=== PATIENT | female | born 1960 | race Caucasian/White ===

== ENCOUNTER → 2017-09-23 13:18 | Outpatient (CLI) | payer MEDICARE, SELFPAY ==
[2017-09-23 15:56] LABS: T4 Free Direct 0.92 ng/dL (0.76-1.46); Thyroid Stim Hormone (TSH) 2.61 uIU/mL (0.358-3.74)
== END ==
PROVIDERS: Family Provider Family Medicine; PCP Family Medicine; Visit Provider Nurse Practitioner Family
DX: R00.2 Palpitations (principal); I47.1 Supraventricular tachycardia; Z98.890 Other specified postprocedural states
CPT/HCPCS: 36415; 84439; 84443; 93225; 93226

== ENCOUNTER 2017-10-14 07:34 | Observation (INO) | payer MEDICARE, SELFPAY ==
[2017-09-24 15:57] LABS: Hematocrit 42.7 % (37-47); Hemoglobin 13.6 g/dl (12.0-15.0); Mean Corp Hgb Conc 31.9 g/gl (32-36); Mean Corpuscular Hgb 28.1 pg (27.0-32.0); Mean Corpuscular Volume 88.2 fL (81-99); Mean Platelet Vol. 9.4 fl (6.2-12.0); Platelet Count 272 K/mm3 (150-450); RBC Distribution Width CV 15.3 % (11.6-14.6); RBC Distribution Width SD 49.3 fl (35.1-43.9); Red Blood Count 4.84 M/mm3 (4.2-5.4); White Blood Count 8.9 K/mm3 (4.4-11.0)
[2017-09-24 15:59] LABS: Scan Indicated on CBC? Y/N NO
[2017-09-24 16:14] LABS: International Normalized Ratio 1.1; Prothrombin Time (Protime)PT. 14.1 SECONDS (11.7-14.9)
[2017-09-24 16:15] LABS: Partial Thromboplast Time 29.2 Seconds (24.1-36.2)
[2017-09-24 16:19] LABS: ALB/GLOB Ratio 0.9 RATIO (0.9-2.4); AST(SGOT) 27 U/L (15-37); Alanine Aminotransfer ALT/SGPT 28 U/L (13-56); Albumin, Serum 3.5 g/dL (3.2-5.0); Alkaline Phosphatase 94 U/L (45-117); Anion Gap 8 (5-15); BUN 15 mg/dL (7-18); BUN/Creat Ratio 15.8 RATIO (10-20); Calcium,Total 9.1 mg/dL (8.5-10.1); Chloride 102 mmol/L (98-107); Creatinine, Serum 0.95 mg/dL (0.55-1.02); EST Glomerular Filtration Rate 64 mL/min (>60); Est Glom Filt Rate - Afr Amer 78 mL/min (>60); Globulin 4.1 g/dL (2.2-4.2); Glucose 123 mg/dL (74-106); Potassium 4.9 mmol/L (3.5-5.1); Protein, Total 7.6 g/dL (6.4-8.2); Sodium Level 139 mmol/L (136-145)
[2017-10-14] VITALS (23 sets, daily range): BP systolic 101–151; BP diastolic 49–86; PULSE 54–122; RESP 16–18; TEMP 36–37.3; O2SAT 93–100; BMI 44.4
[2017-10-14 06:31] LABS: Bedside Glucose 124 mg/dL (70-110)
--- NOTE | 2017-10-14 07:30 | HYST_PTH ---
PATIENT: YUE IBRAHIM LOC: [facility] U#:[id number] AGE/SX: 57/F ROOM: [facility] RE10/14/[address]: Dr. Andrés Resendez MD : [id number] BED: 1 DIS: 10/15/2017 SPEC #: [id number] RECD: 10/14/17 10:18 STATUS: JOSEPH BUCHANAN #: [id number] DILAN: 10/14/17 07:[address]: Andrés Resendez DEPT: SURGICAL PATHOLOGY RECD BY: Sheyla Sharma ENTERED: 10/14/17 11:35 SP TYPE: HYSTERECT OTHR DR: Dr. Judith Penny MD Tissues: Uterus, NOS Procedures: Surgery Specimen Level V HEADER OPERATION: Hysterectomy, lap assisted vaginal, BSO PRE-OP DIAGNOSIS: Benign endometrial hyperplasia without atypia TISSUE SUBMITTED: Uterus, bilateral tubes and ovaries MICROSCOPIC DIAGNOSIS Uterus, hysterectomy: Cervix ? nabothian cysts and minimal chronic inflammation. Endometrial polyps ? simple hyperplasia without atypia. Endometrium ? weakly proliferative endometrium. Myometrium ? early microscopic leiomyoma and focal adenomyosis. Right ovary ? benign epithelial cysts. Right fallopian tube ? benign paratubal cysts. Left ovary ? benign epithelial cysts and corpora albicantia. Left fallopian tube ? benign paratubal cysts. AM:faisal 10/15/17 MICROSCOPIC DESCRIPTION Slides are reviewed. GROSS DESCRIPTION Received in fixative is one container labeled with the patient's name and designated uterus. The specimen consists of a uterus with attached cervix and right and left fallopian tubes and ovaries. The uterus with cervix measures 7.2 x 6 x 4.5 cm and weighs 89.3 gm. The ectocervix is unremarkable the cervical os is round in contour. The endocervical canal measures 2.5 cm in length and is grossly unremarkable. The triangular endometrial cavity measures 3.5 x 2.5 cm. The anterior endometrial surface contains a smooth, glistening light zurita-yellow polyp measuring 2 x 1.5 x 0.6 cm. The myometrium immediately beneath the polyp is not indurated. A similar polyp measuring 3 x 0.7 x 0.7 cm is present attached to the posterior endometrial surface. The myometrium beneath this polyp likewise is not indurated. The myometrium measures 2 cm in average thickness and is free of mass lesions. The crinkled, yellow right ovary measures 2 x 1.5 x 1 cm. Serial sections of the ovary do not reveal mass lesions. The adjacent right fallopian tube is consistent with previous tubal ligation and measures 4 cm in length and 0.5 cm in average diameter. No tubo-ovarian adhesions are seen and a normal fimbriated end is present. The left ovary is similar in appearance to the right ovary and measures 2.2 x 1 x 0.8 cm. Serial sections do not reveal mass lesions. The left fallopian tube is similar in appearance to the right fallopian tube and measures 4.5 cm in length and 0.5 cm in average diameter and is also consistent with previous tubal ligation. No tubo-ovarian adhesions are present. Government Minister sections are submitted in 11 cassettes as follows: 1 - anterior cervix at 12 o?clock, 2 - posterior cervix at 6 o?clock, 3 - anterior uterine wall polyp, 4 - posterior uterine wall polyp, 5 ? anterior myometrial wall, 6 ? remainder of anterior endometrium with adjacent myometrium, 7 ? posterior myometrial wall, 8 & 9 - remainder of posterior endometrium with adjacent myometrium, 10 ? right fallopian tube and ovary, 11 ? left fallopian tube and ovary. / AM:faisal 10/14/17 TC:1 CPT: 44563
--- NOTE | 2017-10-14 07:45 | DCINST_ITS ---
Discharge Diet: No Restrictions Discharge Activity: Return to Normal Activity Return to work on:: 11/30/17 May shower in (days): 0 May resume sexual activity in: 6-8 weeks Call your doctor if your incision/area has: Sudden Increased Bleeding, Increased Pain/ Swelling, Increased Redness, Foul Smelling Discharge, Swelling at the incision site Call your doctor if you observe: Fever of 101 or Higher, Inability to urinate, Inability to have a bowel movement, Using more than one pad per hour, Shortness of breath, Chest pain, Calf discomfort, Uncontrolled pain Remove Dressing in (days):: 2 Allergies/Adverse Reactions: Allergies clindamycin Allergy (Verified 09/23/17 15:06) Hives erythromycin base Allergy (Verified 09/23/17 15:06) Hives nitrofurantoin macrocrystalline [From Macrodantin] Allergy (Verified 09/23/17 15 :06) Hives Sulfa (Sulfonamide Antibiotics) Allergy (Verified 09/23/17 15:06) Hives sulfamethoxazole [From Septra] Allergy (Verified 09/23/17 15:06) Hives trimethoprim [From Septra] Allergy (Verified 09/23/17 15:06) Hives Medications to take at Discharge Aspirin [Aspirin, Baby] 81 mg PO DAILY@0800 09/11/15 Metoprolol Tartrate [Lopressor (beta yeyo)] 75 mg PO BID 09/11/15 Ranitidine [Zantac] 150 mg PO BID 09/11/15 Zolpidem Tartrate [Ambien] 10 mg PO QHS 07/09/17 naproxen sodium 220 mg tablet 220 mg PO Q12H PRN 07/22/17 metformin 1,000 mg tablet 2,000 mg PO BID tab 09/09/17 Naproxen [Naprosyn] 500 mg PO BID PRN PRN #30 tab 10/14/17 Oxycodone [Oxyir] 5 - 10 mg PO Q4H PRN PRN 7 Days #20 tab 10/14/17 The following prescriptions were given: Oxycodone [Oxyir] 5 - 10 mg PO Q4H PRN PRN 7 Days #20 tab PRN Reason: Mod-Severe Pain (4-10/10) Naproxen [Naprosyn] 500 mg PO BID PRN PRN #30 tab PRN Reason: Pain Primary Care Physician: Judith Penny [Primary Care Provider] - Please Follow Up With: Andrés Resendez MD When: one week Proposed Discharge Date: 10/15/17
--- NOTE | 2017-10-14 07:47 | PCM.OPRPT ---
Problem List (1) Endometrial hyperplasia without atypia, simple Status: Chronic Report of Operation Date of Procedure: 10/14/17 Pre-Operative Diagnosis: Endometrial Hyperplasia Post-Operative Diagnosis: Same Surgery/Procedure Performed:: Laparoscopic Assisted Vaginal Hysterectomy and Bilateral Salpingooophorectomy Description of Surgical Findings:: Normal appearing uterus and ovaries. Both fallopian tubes s/p ligation. engine service repairer: Hola Irby Type of Anesthesia:: General Anesthesiologist: Curtis Nolasco Special Medications: none Specimen's removed: Uterus, bilateral ovaries and fallopian tubes Drains: Ann Estimated Blood Loss (mL): 300cc Fluids Replaced: 1800cc LR Description of Procedure: Meaghan was taken to the OR with IV running. She was given two grams of Cefotetan intravenously prior to the surgery for prophylaxis. She had SCDs in place and operational throughout the case and into recovery. General anesthesia was introduced without complication. She was then prepped and draped in the dorsal lithotomy position. A ann catheter was then placed. A uterine manipulator was placed. Attention was then directed towards the abdomen. A 5mm vertical incision was made in the lower base of the umbilicus. The underlying subcutaneous tissue was then dissected bluntly down to the level of fascia using blunt dissection with a lui clamp. The abdominal wall was then elevated and a Veress needle was placed into the abdomen. The abdomen was then insulflated with CO2 gas to a pressure of 15 Torr. The Veress needle was removed and replaced with a 5mm trocar and sleeve. The trocar was removed and replaced with the laparoscope. Findings are as mentioned above. Two lateral side ports were placed on the right and left. Each was placed just below the level of the umbilicus lateral to the inferior epigastric vessels. Hemostasis was excellent after port placement. Attention was first directed to the left adnexa. The left infindibulopelvic ligament was grasped close to the ovary cauterized and cut with the Ligasure defice. The mesosalpinx and parovarian tissue was then dissected from the ovary to the left round ligament. The left round ligament was then cauterized and cut. The Broad ligament was then dissected close to the uterus to the level of the uterocervical junction. The anterior and posterior leaves were then . The cervicovesical peritoneum was undermined and then cut transversly from the left side to the right thus creating a bladder flap. The left uterine artery was then cauterized and cut. The paracervical tissue was dissected to the level of the uterosacral ligament close to the cervix. Attention was then direct to the right side which was similarly dissected. Attention was then directed to the vagina. The cervicovaginal epithelium was superficially injected with a dilute Pitressin solution. Bovie cautery was then used to cut the cervicovaginal epithelium in a circumfrential manner. The vaginal epithelium was then pushed superiorly. The vesicovaginal peritoneum was then identified and entered sharply. In a similar fashion the rectovaginal peritoneum was entered sharply. A long weighted speculum was placed in the posterior defect. The uterosacral ligaments were then grasped with Kishor clamps, cut, and suture ligated. These ties were held for incorporation with the vaginal cuff angles. The remaining paracervical tissue was grasped with Kishor clamps, cut and suture ligated. The specimen was then removed en bulk. The vaginal cuff angles were then suture ligated with 0-Vicryl suture. Incorporated in these ties were the previously held uterosacral ligament ties. The vaginal cuff was then closed with a series of figure of eight sutures of 0-Vicryl. Hemostasis was excellent in the vagina. Attention was redirected to the abdomen. The abdomen was reinflated with CO2 gas. Using the laparoscope the pelvic surgical sites and pedicles were examined and found to be hemostatic. All port sites removed after the CO2 gas was evacuated. The skin incisions were closed with 4-0 Monocryl suture. The skin incision sites were then injected with 0.25% Marcaine. Sponge, lap, and needle counts were correct. She was reversed from anesthesia and taken to the recovery room in stable condition. Grafts/Implants Used: none - Complications none - Admit VTE Documentation VTE Present on Admission: No VTE Mechan Device Prophylaxis: SCD's VTE Pharm Prophylaxis ordered?: No
[2017-10-14] MEDS: Vasopressin 20 UNITS/ML Vial (08:30)
[2017-10-14] MEDS: Bupivacaine 0.25% 30 ML Vial (09:31)
[2017-10-14 10:06] LABS: Bedside Glucose 162 mg/dL (70-110)
--- NOTE | 2017-10-14 10:43 | EKG12_ITS ---
Test Reason : POSTOP Blood Pressure : / mmHG Vent. Rate : 051 BPM Atrial Rate : 051 BPM P-R Int : 138 ms QRS Dur : 080 ms QT Int : 504 ms P-R-T Axes : 029 -21 062 degrees QTc Int : 464 ms Sinus bradycardia Septal infarct , age undetermined Abnormal ECG When compared with ECG of 11-SEP-2015 17:36, Vent. rate has decreased BY 50 BPM Septal infarct is now Present Inverted T waves have replaced nonspecific T wave abnormality in Inferior leads Nonspecific T wave abnormality, worse in Anterolateral leads Confirmed by CARMEN SANDERSON, NICOLA ([id number]), state editor LACEY MATIAS ([id number]) on 10/19/2017 2:09:24 PM Referred By: Andrés Resendez Confirmed By:NICOLA MORALES MD
--- NOTE | 2017-10-14 15:05 | PCM.CONS.GEN ---
Problem List (1) Acute electrocardiogram changes Status: Acute (2) Chest pain Status: Acute (3) Endometrial hyperplasia without atypia, simple Status: Chronic (4) HLD (hyperlipidemia) Status: Chronic Qualifiers: Hyperlipidemia type: mixed hyperlipidemia Qualified Code(s): E78.2 - Mixed hyperlipidemia (5) HTN (hypertension) Status: Chronic Qualifiers: Hypertension type: essential hypertension Qualified Code(s): I10 - Essential (primary) hypertension (6) Other cardiomyopathies Status: Chronic (7) Supraventricular tachycardia Status: Chronic Comment: S/P ablation @ [facility] 04/07/2017; Reason for Consult Date of Consultation: 10/14/17 Reason for Consultation: post op EKG changes and chest heaviness History of Present Illness: The patient is a 57 year old F who we are consulted for chest heaviness by Dr. Resendez who today performed a vaginal lap assisted total hysterectomy bilateral salpingo-oopherectomy today for endometrial hyperplasia. After the procedure she had chest heaviness and biphasic T waves. It is unclear at this time if these are new as the only EKG we have available for comparison is an EKG from 2016 before she underwent a cardioversion in [place] for SVT. She normally follows Dr. Miller. She did however have Chest heaviness. This was midsternal and described only as heaviness. She had no radiation of symptoms into her back, arms, neck, or jaw. She had no SOB. She had no palpitations, dizziness, LH. She has no nausea or vomiting. No fever or chills at this time. The discomfort lasted for maybe 30 minutes. It is now completely resolved. [] Past Medical History Past Medical History (Chronic Problems): Chronic Problems (Last Updated 07/22/17 @ 10:55 by Ana Wilson) Endometrial hyperplasia without atypia, simple (Chronic) HLD (hyperlipidemia) (Chronic) HTN (hypertension) (Chronic) Other cardiomyopathies (Chronic) Palpitations (Chronic) Shortness of breath (Chronic) Supraventricular tachycardia (Chronic) S/P ablation @ [facility] 04/07/2017; Allergies clindamycin Allergy (Verified 09/23/17 15:06) Hives erythromycin base Allergy (Verified 09/23/17 15:06) Hives nitrofurantoin macrocrystalline [From Macrodantin] Allergy (Verified 09/23/17 15:06) Hives Sulfa (Sulfonamide Antibiotics) Allergy (Verified 09/23/17 15:06) Hives sulfamethoxazole [From Marra] Allergy (Verified 09/23/17 15:06) Hives trimethoprim [From ] Allergy (Verified 09/23/17 15:06) Hives Home Medications: Ambulatory Orders Medication Instructions Recorded Aspirin [Aspirin, Baby] 81 mg PO DAILY@0800 09/11/15 Metoprolol Tartrate [Lopressor 75 mg PO BID 09/11/15 (beta yeyo)] Ranitidine [Zantac] 150 mg PO BID 09/11/15 Zolpidem Tartrate [Ambien] 10 mg PO QHS 07/09/17 naproxen sodium 220 mg tablet 220 mg PO Q12H PRN 07/22/17 metformin 1,000 mg tablet 2,000 mg PO BID tab 09/09/17 Naproxen [Naprosyn] 500 mg PO BID PRN PRN #30 tab 10/14/17 Oxycodone [Oxyir] 5 - 10 mg PO Q4H PRN PRN 7 Days 10/14/17 #20 tab Surgical History: - - today total hysterectomy with BL salpingo-oopherectomy NETWORK CONTROL 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 Denies: Chest Pain, Chest Pressure, Chest Tightness, Light Headedness, Orthopnea, Palpitations, Syncope Respiratory: Denies: Cough, Shortness of breath at rest, Sputum production Gastrointestinal: Denies: Abdominal Pain, Nausea, Vomiting Genitourinary: Denies: Dysuria Musculoskeletal: Denies: Joint Pain, Joint Tenderness Skin: Denies: Rash, Wounds Neurological: Denies: Numbness, Tingling, Focal weakness Psychiatric: Denies: Anxiety, Depression, Homicidal Ideations, Suicidal Ideations Hematologic/ Lymphatic: Denies: Easy Bruising, Easy Bleeding Patient Problems: Active and Suspected Problems (Last Updated 07/22/17 @ 10:55 by Ana Wilson) Acute electrocardiogram changes (Acute) Chest pain (Acute) - Physical Exam Vital Signs Temp Pulse Resp BP Pulse Ox 98.2 F 86 16 130/60 H 98 10/14/17 13:39 10/14/17 13:39 10/14/17 13:39 10/14/17 13:39 10/14/17 13:39 Oxygen Flow Rate (L/min) 2 Oxygen Delivery Method Room Air Weight: 117.4 kg Body Mass Index (BMI) 44.4 Finger Stick Blood Glucose 162 Intake and Output for Last 24 Hours 10/12/17 10/13/17 10/14/17 23:59 23:59 23:59 Intake Total 2600 / 2600 Output Total 450 / 450 Balance 2150 / 2150 Laboratory Tests Past 24 Hrs 10/14/17 10/14/17 06:20 11:45 Troponin I < 0.02 Blood Type A POSITIVE Antibody Screen NEGATIVE POC Glucose 10/14/17 10/14/17 10:01 06:14 POC Glucose 162 H 124 H Assessment/Plan Active and Suspected Problems (Last Updated 07/22/17 @ 10:55 by Ana Wilson) Acute electrocardiogram changes (Acute) Chest pain (Acute) 1. Post op EKG changes and chest heaviness - some t wave inversion, biphasic t waves. obtain prior EKGs for comparison. No further chest heaviness. Repeat EKG in AM. First trop neg. Cycle troponin. Maintain on tele. Pt of Dr. Miller. 2. Hx SVT - s/p cardioversion 2015. 3. Hx Cardiomyopathy - Stress test and Echo in 2016 normal. Last EF 60%. 4. Endometrial hyperplsia - s/p total hysterectomy, POD#0 5. DMt2 - on metformin. DVT ppx: SCDs Thank you for the opportunity to participate in the care of this patient This patient was seen by Fausto Guerrero PA-C under the supervision of Doctor Khanna.
[2017-10-14] MEDS: Acetaminophen 500 MG Tablet 1000 MG PO ×2 (16:28→21:42)
[2017-10-14] MEDS: Dextrose 5%-Lactated Ringers 1,000 ML 125 ML IV (16:28)
[2017-10-14] MEDS: Aspirin 81 MG TAB.CHEW PO (16:28)
[2017-10-14] MEDS: Cefazolin 1 GM/50 ML BAG IV (16:28)
[2017-10-14] MEDS: metFORMIN HCl 1,000 MG Tablet 1000 MG PO (18:39)
[2017-10-14] MEDS: Ketorolac 30 MG/ML Syringe IV (18:40)
[2017-10-14] MEDS: Metoprolol Tartrate 25 MG Tablet 75 MG PO (21:42)
[2017-10-14] MEDS: Famotidine 20 MG Tablet PO (21:42)
[2017-10-14] MEDS: Zolpidem Tartrate 5 MG Tablet PO (21:42)
[2017-10-15] VITALS (7 sets, daily range): BP systolic 109–126; BP diastolic 58–70; PULSE 59–70; RESP 16–18; TEMP 36.4–36.7; O2SAT 96–100
[2017-10-15] MEDS: Cefazolin 1 GM/50 ML BAG IV (00:02)
[2017-10-15] MEDS: Ketorolac 30 MG/ML Syringe IV ×2 (00:03→05:47)
[2017-10-15] MEDS: 0.9% NaCl Peripheral Flush Adult/Peds IV ×2 (00:03→05:48)
[2017-10-15] MEDS: Dextrose 5%-Lactated Ringers 1,000 ML 125 ML IV (00:03)
--- NOTE | 2017-10-15 05:55 | EKG12_ITS ---
Test Reason : AM EKG Blood Pressure : / mmHG Vent. Rate : 062 BPM Atrial Rate : 062 BPM P-R Int : 144 ms QRS Dur : 084 ms QT Int : 432 ms P-R-T Axes : 016 -17 -28 degrees QTc Int : 438 ms Normal sinus rhythm Nonspecific T wave abnormality Abnormal ECG Confirmed by CARMEN SANDERSON, NICOLA ([id number]), photographic editor LACEY MATIAS ([id number]) on 10/19/2017 1:57:00 PM Referred By: Andrés Resendez Confirmed By:NICOLA MORALES MD
[2017-10-15 06:10] LABS: Hematocrit 37.7 % (37-47); Hemoglobin 12.1 g/dl (12.0-15.0); Mean Corp Hgb Conc 32.1 g/gl (32-36); Mean Corpuscular Hgb 28.5 pg (27.0-32.0); Mean Corpuscular Volume 88.7 fL (81-99); Mean Platelet Vol. 9.4 fl (6.2-12.0); Platelet Count 264 K/mm3 (150-450); RBC Distribution Width CV 15.6 % (11.6-14.6); RBC Distribution Width SD 50.3 fl (35.1-43.9); Red Blood Count 4.25 M/mm3 (4.2-5.4); Scan Indicated on CBC? Y/N NO; White Blood Count 10.7 K/mm3 (4.4-11.0)
[2017-10-15] MEDS: metFORMIN HCl 1,000 MG Tablet 1000 MG PO (07:48)
[2017-10-15] MEDS: Aspirin 81 MG TAB.CHEW PO (07:48)
--- NOTE | 2017-10-15 08:13 | PCM.PN.OB ---
Patient Problems: Active and Suspected Problems (Last Updated 07/22/17 @ 10:55 by Ana Wilson) Acute electrocardiogram changes (Acute) Chest pain (Acute) Subjective: Doing well on POD#1 s/p LAVH/BSO. No complaints of chest pain, pressure, or SOB. Pain well controlled with toradol. Voiding. Tolerating PO well. Objective: Afeb VSS. Hgb stable. Troponiin levels negative x 3. - Physical Exam General: Alert, Oriented x3, Cooperative, No apparent distress Lungs: Clear to auscultation, Normal air movement Cardiovascular: Regular rate, Regular Rhythm Abdomen: Soft, Non Tender, Non-Distended, - - Incision sites dry no erythema. Extremities: No edema, No Calf Tenderness Skin: No rashes Neurological: Neuro grossly intact Psych/Mental Status: Normal Affect Comment: Scant vaginal spotting Vital Signs Temp Pulse Resp BP Pulse Ox 98.1 F 59 L 18 109/58 L 96 10/15/17 03:25 10/15/17 06:56 10/15/17 03:25 10/15/17 03:25 10/15/17 03:30 Oxygen Flow Rate (L/min) 2 Oxygen Delivery Method Room Air Weight: 258 lb 13.163 oz Body Mass Index (BMI) 44.4 Finger Stick Blood Glucose 162 Intake and Output for Last 24 Hours 10/13/17 10/14/17 10/15/17 23:59 23:59 23:59 Intake Total 4839 / 4839 829 / 829 Output Total 3000 / 3000 150 / 150 Balance 1839 / 1839 679 / 679 Laboratory Tests Past 24 Hrs 10/14/17 10/14/17 10/14/17 11:45 17:55 21:05 WBC RBC Hgb Hct MCV MCH MCHC RDW RDW Differential Plt Count MPV Troponin I < 0.02 < 0.02 < 0.02 10/15/17 05:45 WBC 10.7 RBC 4.25 Hgb 12.1 Hct 37.7 MCV 88.7 MCH 28.5 MCHC 32.1 RDW 15.6 H RDW Differential 50.3 H Plt Count 264 MPV 9.4 Troponin I POC Glucose 10/14/17 10:01 POC Glucose 162 H Medical Necessity - Tobacco Use Smoking Status: Never smoker Tobacco Use: Non-smoker Assessment/Plan Active and Suspected Problems (Last Updated 07/22/17 @ 10:55 by Ana Wilson) Acute electrocardiogram changes (Acute) Chest pain (Acute) Doing well on POD#1. Cleared for discharge. Instructed patient to watch for signs of AK subtle and otherwise. Troponins negative so low suspicion of acute AK. Home going warnings and instructions given. Instructed to call her vehicle service agent for followup.
--- NOTE | 2017-10-15 08:17 | PN.OBGYN_ITS ---
Patient Problems: Active and Suspected Problems (Last Updated 07/22/17 @ 10:55 by Ana Wilson) Acute electrocardiogram changes (Acute) Chest pain (Acute) Subjective: Doing well on POD#1 s/p LAVH/BSO. No complaints of chest pain, pressure, or SOB. Pain well controlled with toradol. Voiding. Tolerating PO well. Objective: Afeb VSS. Hgb stable. Troponiin levels negative x 3. - Physical Exam General: Alert, Oriented x3, Cooperative, No apparent distress Lungs: Clear to auscultation, Normal air movement Cardiovascular: Regular rate, Regular Rhythm Abdomen: Soft, Non Tender, Non-Distended, - - Incision sites dry no erythema. Extremities: No edema, No Calf Tenderness Skin: No rashes Neurological: Neuro grossly intact Psych/Mental Status: Normal Affect Comment: Scant vaginal spotting Vital Signs Temp Pulse Resp BP Pulse Ox 98.1 F 59 L 18 109/58 L 96 10/15/17 03:25 10/15/17 06:56 10/15/17 03:25 10/15/17 03:25 10/15/17 03:30 Oxygen Flow Rate (L/min) 2 Oxygen Delivery Method Room Air Weight: 258 lb 13.163 oz Body Mass Index (BMI) 44.4 Finger Stick Blood Glucose 162 Intake and Output for Last 24 Hours 10/13/17 10/14/17 10/15/17 23:59 23:59 23:59 Intake Total 4839 / 4839 829 / 829 Output Total 3000 / 3000 150 / 150 Balance 1839 / 1839 679 / 679 Laboratory Tests Past 24 Hrs 10/14/17 10/14/17 10/14/17 11:45 17:55 21:05 WBC RBC Hgb Hct MCV MCH MCHC RDW RDW Differential Plt Count MPV Troponin I < 0.02 < 0.02 < 0.02 10/15/17 05:45 WBC 10.7 RBC 4.25 Hgb 12.1 Hct 37.7 MCV 88.7 MCH 28.5 MCHC 32.1 RDW 15.6 H RDW Differential 50.3 H Plt Count 264 MPV 9.4 Troponin I POC Glucose 10/14/17 10:01 POC Glucose 162 H Medical Necessity - Tobacco Use Smoking Status: Never smoker Tobacco Use: Non-smoker Assessment/Plan Active and Suspected Problems (Last Updated 07/22/17 @ 10:55 by Ana Wilson) Acute electrocardiogram changes (Acute) Chest pain (Acute) Doing well on POD#1. Cleared for discharge. Instructed patient to watch for signs of RI subtle and otherwise. Troponins negative so low suspicion of acute RI. Home going warnings and instructions given. Instructed to call her comb capper for followup.
[2017-10-15] MEDS: Metoprolol Tartrate 25 MG Tablet 75 MG PO (08:54)
[2017-10-15] MEDS: Famotidine 20 MG Tablet PO (08:54)
== END 2017-10-15 08:17 | disposition home or self-care (01) ==
LOC: MS2 08:46 → PCU 12:43
PROVIDERS: Anesthesiology; Internal Medicine; Admitting Provider Obstetrics & Gynecology; Family Provider Family Medicine; PCP Family Medicine; Visit Provider Obstetrics & Gynecology
PROC: 0UT9FZZ Resection of Uterus, Via Natural or Artificial Opening With Percutaneous Endoscopic Assistance (ICD-10-PCS; CPT 58552; principal; 2017-10-14 07:05)
DX: N85.01 Benign endometrial hyperplasia (principal); N88.8 Other specified noninflammatory disorders of cervix uteri; D25.9 Leiomyoma of uterus, unspecified; N80.0 Endometriosis of uterus; L72.0 Epidermal cyst; N83.8 Other noninflammatory disorders of ovary, fallopian tube and broad ligament; N83.292 Other ovarian cyst, left side; E78.2 Mixed hyperlipidemia; E11.9 Type 2 diabetes mellitus without complications; K21.9 Gastro-esophageal reflux disease without esophagitis; R07.89 Other chest pain; Z79.899 Other long term (current) drug therapy; Z79.82 Long term (current) use of aspirin; Z79.84 Long term (current) use of oral hypoglycemic drugs; G47.30 Sleep apnea, unspecified; I11.0 Hypertensive heart disease with heart failure; I50.9 Heart failure, unspecified
CPT/HCPCS: 58552; 36415; 80053; 82962; 84484; 85027; 85610; 85730; 86850; 86900; 88307; 93005; 96361; 96365; 96366; 96375; 96376; 97802; 99218; J7120; A4216; G0378; G0379; J2405

== ENCOUNTER 2018-10-14 06:36 | Inpatient (IN) | payer MEDICARE, SELFPAY ==
[2018-08-02 12:52] VITALS: BMI 45.8
[2018-10-14] VITALS (15 sets, daily range): BP systolic 131–150; BP diastolic 71–89; PULSE 64–91; RESP 15–18; TEMP 36.7–36.9; O2SAT 95–98; BMI 45.4; BMI 43.5; BMI 43.6
--- NOTE | 2018-10-14 06:54 | EKG12_ITS ---
Test Reason : CP Blood Pressure : / mmHG Vent. Rate : 084 BPM Atrial Rate : 084 BPM P-R Int : 136 ms QRS Dur : 084 ms QT Int : 376 ms P-R-T Axes : 029 -19 065 degrees QTc Int : 444 ms Normal sinus rhythm Low voltage QRS Nonspecific T wave abnormality Abnormal ECG Confirmed by BURT SANDERSON, BEBETO ([id number]), technical writer and editor MAIKEL JEFF ([id number]) on 10/18/2018 2:10:17 PM Referred By: Confirmed By:BEBETO DALLAS MD
--- NOTE | 2018-10-14 06:55 | ED.VIS.CHEST ---
History of Present Illness Chief Complaint: Chest Pain Informant: Patient, EMS Onset: Today, Yesterday Activity at onset: Light Activity - Associated with yesterday's discomfort which was pleuritic, Sleep - Pain that awoke patient from sleep at 0500 today Quality: - - Patient unable to describe the quality of pain other than it concerned her and had a pleuritic component Location: Left Chest Current Severity: Mild Maximum Severity: Severe Relieved By: Nothing Associated Symptoms: Diaphoresis, Dyspnea. Negative for: Nausea, Vomiting, Cough, Fever, Lightheadedness, Acid Reflux, Palpitations Narrative: Patient is a middle-aged woman who presents with left-sided pleuritic pain that started at approximately 1800 yesterday while cleaning dishes. She thought the discomfort was secondary to viral infection which her had. She denied rhinorrhea, sore throat or cough. She denies history of PE, DVT or any risk factors. She denies leg pain, swelling or discoloration. She states the pain lingered during the evening. She went to bed at her usual time. She states she applied her CPAP mask. She was awakened at 0500 from sleep with severe left-sided chest discomfort that radiated to the left shoulder and arm associated with dyspnea and diaphoresis. There was a pleuritic component as well. She took Aleve with minimal effect. She does complain of a scratchy throat this morning. She states last year after hysterectomy she experienced discomfort as she was awakening from anesthesia had a cardiac workup which apparently was unremarkable. Prior Similar Symptoms: No Recent Illness/Hospitalization: No - Past Medical History (1) Obstructive sleep apnea Status: Chronic (2) Endometrial hyperplasia without atypia, simple Status: Chronic (3) Essential hypertension Status: Chronic (4) HLD (hyperlipidemia) Status: Chronic (5) Other cardiomyopathies Status: Chronic (6) Supraventricular tachycardia Status: Chronic Comment: S/P ablation @ [facility] 04/07/2017; (7) History of cardiac radiofrequency ablation Status: Resolved Comment: S/P ablation @ [facility] 04/07/2017; Past Medical History - Allergies and Home Meds Allergies/Adverse Reactions: Allergies clindamycin Allergy (Verified 10/14/18 06:37) Hives erythromycin base Allergy (Verified 10/14/18 06:37) Hives nitrofurantoin macrocrystalline [From Macrodantin] Allergy (Verified 10/14/18 06:37) Hives Sulfa (Sulfonamide Antibiotics) Allergy (Verified 10/14/18 06:37) Hives sulfamethoxazole [From ] Allergy (Verified 10/14/18 06:37) Hives trimethoprim [From ] Allergy (Verified 10/14/18 06:37) Hives Primary Care Physician: Tawanda Doctor,Out of [Primary Care Provider] - Prior records reviewed: Yes Surgical History: hysterectomy, - - today total hysterectomy with BL salpingo-oopherectomy Lives: Spouse/ Significant Other Smoking Status: Never smoker Alcohol: None Review of Systems General: Denies: Chills, Fever, Malaise, Sweats Eyes: Denies: Visual changes - bilaterally, Diplopia ENT: Denies: Rhinorrhea, Sore throat Cardiovascular: Reports: Chest pain Respiratory: Reports: Dyspnea. Denies: Cough, Sputum, Dyspnea on exertion, Orthopnea, Paroxysmal nocturnal dyspnea, -, - Gastrointestinal: Denies: Abdominal pain, Nausea, Vomiting, Diarrhea, Constipation, Melena, Hematochezia, -, - Genitourinary: Denies: Dysuria, Hematuria, Frequency Musculoskeletal: Denies: Back pain, Extremity Pain Skin: Denies: Rash, Wounds Neurological: Denies: Headache, Weakness, Numbness Endocrine: Denies: Polyuria, Polydipsia Allergy: Denies: Uticaria Physical Exam Vital Signs/Narrative: Vital Signs Temp Pulse Resp BP Pulse Ox 10/14/18 06:37 98.1 F 91 15 141/89 H 96 Inital Vital Signs reviewed: Yes General: Well nourished, Well developed, No Acute Distress, - Head: Normocephalic, Atraumatic Eyes: Perrl, EOMI ENT: Moist mucous membranes, No rhinorrhea Neck: Supple, Nontender Cardiovascular: Regular rate, Regular rhythm, No murmurs Respiratory: No distress, CTA bilaterally, Chest nontender Abdomen: Soft, Nontender, Nondistended, Normal bowel sounds, No masses. Negative for: Hepatomegaly, Splenomegaly, Mass, Pulsatile mass Back: Nontender, Normal Inspection Extremities: Nontender, No edema, - - There is no asymmetry, swelling, discoloration, leg vein distention, palpable cords or tenderness along the distribution of the deep venous system. Skin: Normal color, No rash Neurological: Alert, Oriented x3, Cranial nerves II-XII grossly intact, Normal Strength, Normal Sensation Psychological: Normal affect, Normal Mood Diagnostic/Tx/Re-eval Chest X-Ray - ED: 2 View, Read by ED Physician, Unchanged, Normal, Heart, Mediastinum, Bony Structures, No Acute Disease, Chronic Changes Chest x-ray was interpreted prior to radiologist interpretation. Impressions Chest X-Ray 10/14/18 07:00 IMPRESSION: Degenerative changes, as described above. No demonstrated acute cardiopulmonary process. Electronically Signed: Mary Jo Simeon, at 7:44 EDT Tel , Service support , 10/14/18 07:00 Chest PA and Lateral [RAD] Stat Laboratory Results 10/14/18 10/14/18 10/14/18 06:41 06:41 06:41 WBC 9.6 RBC 5.03 Hgb 14.2 Hct 43.9 MCV 87.3 MCH 28.2 MCHC 32.3 RDW 15.0 H RDW Differential 47.9 H Plt Count 247 MPV 9.3 Immature Gran % (Auto) 0.500 Neut % (Auto) 54.5 Lymph % (Auto) 36.5 [place] % (Auto) 6.5 Eos % (Auto) 1.7 Baso % (Auto) 0.3 Absolute Neuts (auto) 5.2 Absolute Lymphs (auto) 3.50 Total Counted Not Reportable D-Dimer Quant (PE/DVT) < 0.27 L Sodium 139 Potassium 3.9 Chloride 102 Carbon Dioxide 27.0 Anion Gap 10 BUN 12 Creatinine 1.01 Estim Creat Clear Calc 52.43 Est GFR (MDRD) Af Amer 72 Est GFR (MDRD) Non-Af 60 BUN/Creatinine Ratio 11.9 Glucose 212 H Calcium 9.1 Troponin I 0.027 - Rhythm Strip Rhythm Strip: Sinus Rhythm Rate: 52 Ectopy: None - EKG Initial EKG Interpretation: Sinus Rhythm - Ventricular rate 84. [place] interval, QRS duration and QT interval normal. [place] is normal. The EKG is normal. There is no evidence of ischemia, acute. Treatment: Aspirin MARISOL Risk: >/= 3RF Score: 1 - Medical Decision Making Patient presents with pleuritic pain last evening. This raises concern for pleurisy, bronchitis and pulmonary embolus. With discomfort that awoke patient from sleep with dyspnea and diaphoresis need to rule out pulmonary embolus versus cardiac etiology versus GI etiology. Patient states she never had pain like this before. Aspirin was ordered. I was informed that she received 4 baby aspirin prior to arrival and 1 nitroglycerin. The nitroglycerin had no effect on her chest discomfort. To evaluate the cause of her pain EKG, chest x-ray, blood work including troponin and d-dimer were obtained. We will also review of event that occurred 1 year ago after hysterectomy. 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 She had an echo and stress test for palpitations in 2016. EF return to normal, 65% and stress test was negative in 2016. Her cardiomyopathy was related to a viral illness many years ago. Dr. Miller is in agreement for 23-hour observation PCU with serial enzymes. ED Disposition - Plan for ED Patient: Disposition: Acute Care Hospital [facility] Diagnosis: Chest pain, rule out acute myocardial infarction, Essential hypertension, HLD (hyperlipidemia), Obstructive sleep apnea Referrals: [facility] Doctor,Out of [Primary Care Provider] -
--- NOTE | 2018-10-14 07:00 | RAD_ITS ---
STUDY: X-RAY CHEST REASON FOR EXAM: Female, 58 years old. Chest pain TECHNIQUE: Frontal and lateral views of the chest. COMPARISON: None. FINDINGS: The lungs are clear and expanded. There is no demonstrated pleural abnormality. Normal size heart. Normal mediastinum and renetta. Normal visualized pulmonary arteries. Normal visualized aortic arch and descending thoracic aorta. There are diffuse degenerative changes and dextroscoliosis of the visualized thoracic spine. There is degenerative osteoarthritis of the bilateral shoulders. There is no demonstrated abnormality of the visualized soft tissue structures of the upper abdomen. RAD/Chest PA and Lateral IMPRESSION: Degenerative changes, as described above. No demonstrated acute cardiopulmonary process. Electronically Signed: Mary Jo Simeon, at 7:44 EDT Tel , Service support ,
--- NOTE | 2018-10-14 07:00 | ED.DCSUM_ITS ---
History of Present Illness Chief Complaint: Chest Pain Informant: Patient, EMS Onset: Today, Yesterday Activity at onset: Light Activity - Associated with yesterday's discomfort which was pleuritic, Sleep - Pain that awoke patient from sleep at 0500 today Quality: - - Patient unable to describe the quality of pain other than it concerned her and had a pleuritic component Location: Left Chest Current Severity: Mild Maximum Severity: Severe Relieved By: Nothing Associated Symptoms: Diaphoresis, Dyspnea. Negative for: Nausea, Vomiting, Cough, Fever, Lightheadedness, Acid Reflux, Palpitations Narrative: Patient is a middle-aged woman who presents with left-sided pleuritic pain that started at approximately 1800 yesterday while cleaning dishes. She thought the discomfort was secondary to viral infection which her had. She denied rhinorrhea, sore throat or cough. She denies history of PE, DVT or any risk factors. She denies leg pain, swelling or discoloration. She states the pain lingered during the evening. She went to bed at her usual time. She states she applied her CPAP mask. She was awakened at 0500 from sleep with severe left- sided chest discomfort that radiated to the left shoulder and arm associated with dyspnea and diaphoresis. There was a pleuritic component as well. She took Aleve with minimal effect. She does complain of a scratchy throat this morning. She states last year after hysterectomy she experienced discomfort as she was awakening from anesthesia had a cardiac workup which apparently was unremarkable. Prior Similar Symptoms: No Recent Illness/Hospitalization: No - Past Medical History (1) Obstructive sleep apnea Status: Chronic (2) Endometrial hyperplasia without atypia, simple Status: Chronic (3) Essential hypertension Status: Chronic (4) HLD (hyperlipidemia) Status: Chronic (5) Other cardiomyopathies Status: Chronic (6) Supraventricular tachycardia Status: Chronic Comment: S/P ablation @ [facility] 04/07/2017; (7) History of cardiac radiofrequency ablation Status: Resolved Comment: S/P ablation @ [facility] 04/07/2017; Past Medical History - Allergies and Home Meds Allergies/Adverse Reactions: Allergies clindamycin Allergy (Verified 10/14/18 06:37) Hives erythromycin base Allergy (Verified 10/14/18 06:37) Hives nitrofurantoin macrocrystalline [From Macrodantin] Allergy (Verified 10/14/18 06:37) Hives Sulfa (Sulfonamide Antibiotics) Allergy (Verified 10/14/18 06:37) Hives sulfamethoxazole [From ] Allergy (Verified 10/14/18 06:37) Hives trimethoprim [From ] Allergy (Verified 10/14/18 06:37) Hives Primary Care Physician: Tawanda Doctor,Out of [Primary Care Provider] - Prior records reviewed: Yes Surgical History: hysterectomy, - - today total hysterectomy with BL salpingo- oopherectomy Lives: Spouse/ Significant Other Smoking Status: Never smoker Alcohol: None Review of Systems General: Denies: Chills, Fever, Malaise, Sweats Eyes: Denies: Visual changes - bilaterally, Diplopia ENT: Denies: Rhinorrhea, Sore throat Cardiovascular: Reports: Chest pain Respiratory: Reports: Dyspnea. Denies: Cough, Sputum, Dyspnea on exertion, Orthopnea, Paroxysmal nocturnal dyspnea, -, - Gastrointestinal: Denies: Abdominal pain, Nausea, Vomiting, Diarrhea, Constipation, Melena, Hematochezia, -, - Genitourinary: Denies: Dysuria, Hematuria, Frequency Musculoskeletal: Denies: Back pain, Extremity Pain Skin: Denies: Rash, Wounds Neurological: Denies: Headache, Weakness, Numbness Endocrine: Denies: Polyuria, Polydipsia Allergy: Denies: Uticaria Physical Exam Vital Signs/Narrative: Vital Signs Temp Pulse Resp BP Pulse Ox 10/14/18 06:37 98.1 F 91 15 141/89 H 96 Inital Vital Signs reviewed: Yes General: Well nourished, Well developed, No Acute Distress, - Head: Normocephalic, Atraumatic Eyes: Perrl, EOMI ENT: Moist mucous membranes, No rhinorrhea Neck: Supple, Nontender Cardiovascular: Regular rate, Regular rhythm, No murmurs Respiratory: No distress, CTA bilaterally, Chest nontender Abdomen: Soft, Nontender, Nondistended, Normal bowel sounds, No masses. Negative for: Hepatomegaly, Splenomegaly, Mass, Pulsatile mass Back: Nontender, Normal Inspection Extremities: Nontender, No edema, - - There is no asymmetry, swelling, discoloration, leg vein distention, palpable cords or tenderness along the distribution of the deep venous system. Skin: Normal color, No rash Neurological: Alert, Oriented x3, Cranial nerves II-XII grossly intact, Normal Strength, Normal Sensation Psychological: Normal affect, Normal Mood Diagnostic/Tx/Re-eval Chest X-Ray - ED: 2 View, Read by ED Physician, Unchanged, Normal, Heart, Mediastinum, Bony Structures, No Acute Disease, Chronic Changes Chest x-ray was interpreted prior to radiologist interpretation. Impressions Chest X-Ray 10/14/18 07:00 IMPRESSION: Degenerative changes, as described above. No demonstrated acute cardiopulmonary process. Electronically Signed: Mary Jo Simeon, at 7:44 EDT Tel , Service support , 10/14/18 07:00 Chest PA and Lateral [RAD] Stat Laboratory Results 10/14/18 10/14/18 10/14/18 06:41 06:41 06:41 WBC 9.6 RBC 5.03 Hgb 14.2 Hct 43.9 MCV 87.3 MCH 28.2 MCHC 32.3 RDW 15.0 H RDW Differential 47.9 H Plt Count 247 MPV 9.3 Immature Gran % (Auto) 0.500 Neut % (Auto) 54.5 Lymph % (Auto) 36.5 [place] % (Auto) 6.5 Eos % (Auto) 1.7 Baso % (Auto) 0.3 Absolute Neuts (auto) 5.2 Absolute Lymphs (auto) 3.50 Total Counted Not Reportable D-Dimer Quant (PE/DVT) < 0.27 L Sodium 139 Potassium 3.9 Chloride 102 Carbon Dioxide 27.0 Anion Gap 10 BUN 12 Creatinine 1.01 Estim Creat Clear Calc 52.43 Est GFR (MDRD) Af Amer 72 Est GFR (MDRD) Non-Af 60 BUN/Creatinine Ratio 11.9 Glucose 212 H Calcium 9.1 Troponin I 0.027 - Rhythm Strip Rhythm Strip: Sinus Rhythm Rate: 52 Ectopy: None - EKG Initial EKG Interpretation: Sinus Rhythm - Ventricular rate 84. [place] interval, QRS duration and QT interval normal. [place] is normal. The EKG is normal. There is no evidence of ischemia, acute. Treatment: Aspirin MARISOL Risk: >/= 3RF Score: 1 - Medical Decision Making Patient presents with pleuritic pain last evening. This raises concern for pleurisy, bronchitis and pulmonary embolus. With discomfort that awoke patient from sleep with dyspnea and diaphoresis need to rule out pulmonary embolus versus cardiac etiology versus GI etiology. Patient states she never had pain like this before. Aspirin was ordered. I was informed that she received 4 baby aspirin prior to arrival and 1 nitroglycerin. The nitroglycerin had no effect on her chest discomfort. To evaluate the cause of her pain EKG, chest x-ray, blood work including t roponin and d-dimer were obtained. We will also review of event that occurred 1 year ago after hysterectomy. 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 She had an echo and stress test for palpitations in 2016. EF return to normal, 65% and stress test was negative in 2016. Her cardiomyopathy was related to a viral illness many years ago. Dr. Miller is in agreement for 23-hour observation PCU with serial enzymes. ED Disposition - Plan for ED Patient: Disposition: Acute Care Hospital [facility] Diagnosis: Chest pain, rule out acute myocardial infarction, Essential hypertension, HLD (hyperlipidemia), Obstructive sleep apnea Referrals: [facility] Doctor,Out of [Primary Care Provider] -
[2018-10-14 07:06] LABS: Absolute Neutrophil Count 5.2 X10^3/uL (2.0-7.7); Basophil# 0.03 X10^3/uL; Basophil% 0.3 % (0-1); Eosinophil# 0.16 X10^3/uL; Eosinophils% 1.7 % (0-5); Hematocrit 43.9 % (37-47); Hemoglobin 14.2 g/dl (12.0-15.0); Lymphocyte % 36.5 % (19-41); Mean Corp Hgb Conc 32.3 g/gl (32-36); Mean Corpuscular Hgb 28.2 pg (27.0-32.0); Mean Corpuscular Volume 87.3 fL (81-99); Mean Platelet Vol. 9.3 fl (6.2-12.0); Monocyte# 0.62 X10^3/uL; Monocyte% 6.5 % (0-10); Neutrophil # 5.23 X10^3/uL (2.7-7.7); Neutrophil % 54.5 % (47-70); Platelet Count 247 K/mm3 (150-450); RBC Distribution Width SD 47.9 fl (35.1-43.9); Red Blood Count 5.03 M/mm3 (4.2-5.4); White Blood Count 9.6 K/mm3 (4.4-11.0)
[2018-10-14 07:10] LABS: POSITIVE COUNT NO; POSITIVE DIFFERENTIAL NO; POSITIVE MORPHOLOGY NO
[2018-10-14 07:17] LABS: Anion Gap 10 (5-15); BUN 12 mg/dL (7-18); BUN/Creat Ratio 11.9 RATIO (10-20); Calcium,Total 9.1 mg/dL (8.5-10.1); Chloride 102 mmol/L (98-107); Creatinine, Serum 1.01 mg/dL (0.55-1.02); EST Glomerular Filtration Rate 60 mL/min (>60); Est Glom Filt Rate - Afr Amer 72 mL/min (>60); Estimated Creatinine Clearance 52.43 ml/min; Glucose 212 mg/dL (74-106); Potassium 3.9 mmol/L (3.5-5.1); Sodium Level 139 mmol/L (136-145)
[2018-10-14 07:52] LABS: D-Dimer Quantitative (DVT/PE) < 0.27 FEU/ug/m (0.27-0.49)
--- NOTE | 2018-10-14 09:01 | NURSING ---
HOSPITALIST FOR DR OLIVO
--- NOTE | 2018-10-14 09:09 | NURSING ---
PCU OBS NIGEL CP , EVALUATE FOR CARDIAC ISCHEMIA
--- NOTE | 2018-10-14 10:04 | EKG12_ITS ---
Test Reason : CP ADMIT Blood Pressure : / mmHG Vent. Rate : 062 BPM Atrial Rate : 062 BPM P-R Int : 148 ms QRS Dur : 086 ms QT Int : 412 ms P-R-T Axes : 023 -23 016 degrees QTc Int : 418 ms Normal sinus rhythm Normal ECG When compared with ECG of 15-OCT-2017 05:20, Nonspecific T wave abnormality has replaced inverted T waves in Inferior leads Nonspecific T wave abnormality no longer evident in Anterior leads Confirmed by CARMEN SANDERSON, NICOLA ([id number]), editor index MAIKEL JEFF ([id number]) on 10/15/2018 1:47:57 PM Referred By: NIGEL Confirmed By:NICOLA MORALES MD
--- NOTE | 2018-10-14 11:35 | PCM.HP.STD ---
Problem List (1) Obstructive sleep apnea Status: Chronic (2) Chest pain, rule out acute myocardial infarction Status: Acute (3) Bronchitis Status: Acute (4) History of cardiac radiofrequency ablation Status: Resolved Comment: S/P ablation @ [facility] 04/07/2017; (5) Essential hypertension Status: Chronic (6) Endometrial hyperplasia without atypia, simple Status: Chronic (7) Chest pain Status: Acute (8) HLD (hyperlipidemia) Status: Chronic Qualifiers: Hyperlipidemia type: mixed hyperlipidemia Qualified Code(s): E78.2 - Mixed hyperlipidemia (9) Supraventricular tachycardia Status: Chronic Comment: S/P ablation @ [facility] 04/07/2017; History of Present Illness Date of Admission: 10/14/18 Chief Complaint: Chest pain since yesterday. The patient is a 58 year old F with past medical history as mentioned below including history of viral cardiomyopathy in 2005, SVT on metoprolol status post ablation came to ED with left-sided pleuritic chest pain started about 6 PM yesterday. Patient. More pain while on deep inspiration or coughing. She had sick contact with who had viral fever/sore throat and a small kid. She has cough , sore throat, postnasal drip for few days. Denies shortness of breath, palpitation, sweating or syncope. Chest pain that radiates from midsternal to posteriorly along left lateral wall. Twelve-lead EKG was done and reported as normal sinus rhythm at [address]-T changes similar to previous EKG of 15 October 2018. Chest x-ray does not show acute cardiopulmonary process. On basic blood work, glucose is elevated 212, first troponin negative. Second troponin slightly elevated 0.252. Past Medical History Past Medical History (Chronic Problems): Chronic Problems (Last Reviewed 07/21/18 @ 12:12 by Alda Eubanks) Obstructive sleep apnea (Chronic) Essential hypertension (Chronic) Endometrial hyperplasia without atypia, simple (Chronic) HLD (hyperlipidemia) (Chronic) Supraventricular tachycardia (Chronic) S/P ablation @ [facility] 04/07/2017; Medical History: Medical History (Last Reviewed 07/21/18 @ 12:12 by Alda Eubanks) Essential hypertension (Chronic) I10 HLD (hyperlipidemia) (Chronic) E78.5 Supraventricular tachycardia (Chronic) I47.1 S/P ablation @ [facility] 04/07/2017; GERD (gastroesophageal reflux disease) K21.9 Hypothyroidism E03.9 HUSSEIN (obstructive sleep apnea) G47.33 HTN (hypertension) (Inactive) I10 Allergies clindamycin Allergy (Verified 10/14/18 06:37) Hives erythromycin base Allergy (Verified 10/14/18 06:37) Hives nitrofurantoin macrocrystalline [From Macrodantin] Allergy (Verified 10/14/18 06:37) Hives Sulfa (Sulfonamide Antibiotics) Allergy (Verified 10/14/18 06:37) Hives sulfamethoxazole [From Septra] Allergy (Verified 10/14/18 06:37) Hives trimethoprim [From Septra] Allergy (Verified 10/14/18 06:37) Hives Home Medications: Ambulatory Orders Medication Instructions Recorded Aspirin [Aspirin, Baby] 81 mg PO DAILY@0800 09/11/15 Ranitidine [Zantac] 150 mg PO BID 09/11/15 Zolpidem Tartrate [Ambien] 10 mg PO QHS PRN PRN 07/09/17 metformin 1,000 mg tablet 1,000 mg PO BID tab 09/09/17 coenzyme Q10 100 mg capsule 100 mg PO DAILY 08/02/18 levothyroxine 25 mcg tablet 50 mcg PO DAILY 08/02/18 metoprolol tartrate 50 mg tablet 75 mg PO BID #270 tab 08/02/18 Surgical History: Surgical History (Last Reviewed 08/02/18 @ 13:04 by Lisa Rocha) H/O prior ablation treatment Onset Date: 04/07/17 Z98.890 EP study and RF Catheter ablation at [facility] History of Z98.891 History of total right knee replacement (TKR) Onset Date: ~06/2014 Z96.651 History of hysterectomy Z90.710 Surgical History: hysterectomy, - - today total hysterectomy with BL salpingo-oopherectomy Lives: Spouse/ Significant Other Smoking Status: Never smoker Alcohol: None - *Family History Paternal Family History: Family History (Last Reviewed 08/02/18 @ 13:05 by Lisa Rocha) Grandmother CVA (cerebral vascular accident) Mother CAD (coronary artery disease) A-fib Heart disease Father Heart disease Hypertension Cancer Sister Fibromyalgia Sister Myocardial infarction Diabetes CAD (coronary artery disease) Brother Myocardial infarction CAD (coronary artery disease) Diabetes Brother Cancer Asthma Aunt Colon cancer Uncle Colon cancer Diabetes Review of Systems Constitutional: Denies: Chills, Fever, Weight Change HEENT: Reports: Nasal Congestion, Post Nasal Drip, Sore Throat. Denies: Head Aches, Sinus Congestion, Sinus Drainage Cardiovascular: Reports: Chest Pain. Denies: Palpitations Respiratory: Reports: Cough, Pleuritic Pain. Denies: Shortness of breath at rest, Sputum production Gastrointestinal: Denies: Abdominal Pain, Nausea, Vomiting Genitourinary: Denies: Dysuria Musculoskeletal: Reports: - - Right knee surgery. Denies: Joint Pain, Joint Tenderness Skin: Denies: Rash, Wounds Neurological: Denies: Numbness, Tingling, Focal weakness Psychiatric: Denies: Anxiety, Depression, Homicidal Ideations, Suicidal Ideations Hematologic/ Lymphatic: Denies: Easy Bruising, Easy Bleeding VTE Information - Inpt Only VTE Present on Admission: No VTE Mechan Device Prophylaxis: None VTE Pharm Prophylaxis ordered?: Yes Patient Problems: Active and Suspected Problems (Last Reviewed 07/21/18 @ 12:12 by Alda Eubanks) Chest pain, rule out acute myocardial infarction (Acute) - Physical Exam General: Alert, Oriented x3, Cooperative HEENT: Atraumatic, PERRLA, EOMI, Normocephalic Oral: No Gingival or Mucosal Lesions/ Ulcerations, - - No pharyngeal exudate or erythema Neck: Supple, No JVD, Negative Carotid Bruits Lungs: Clear to auscultation, Normal air movement, No rhonchi, No wheeze, No rales Cardiovascular: Regular rate, Regular Rhythm, Normal S1, Normal S2, No murmurs Abdomen: Bowel Sounds Present, Soft, Non Tender, Non-Distended Extremities: No edema, Capillary Refill Less than 3 Seconds Skin: No rashes, No breakdown Musculoskeletal: No Tenderness to Palpation of Joints or Extremities, Arthritic Changes Lymphatic: No Cervical, Supraclavicular, or Inguinal Adenopathy Neurological: Cranial nerves II-XII grossly intact, Deep Tendon Reflexes 2+/4 and Symmetrical, Neuro grossly intact, Motor Exam 5/5 strength throughout Psych/Mental Status: Normal Affect, Appropriate Vital Signs Temp Pulse Resp BP Pulse Ox 98.5 F 87 18 133/78 H 96 10/14/18 10:40 10/14/18 11:03 10/14/18 10:40 10/14/18 10:40 10/14/18 10:40 Oxygen Flow Rate (L/min) 2 Oxygen Delivery Method Room Air Weight: 253 lb 12.033 oz Body Mass Index (BMI) 43.5 Finger Stick Blood Glucose 162 Laboratory Tests Past 24 Hrs 10/14/18 10/14/18 10/14/18 06:41 06:41 06:41 WBC 9.6 RBC 5.03 Hgb 14.2 Hct 43.9 MCV 87.3 MCH 28.2 MCHC 32.3 RDW 15.0 H RDW Differential 47.9 H Plt Count 247 MPV 9.3 Immature Gran % (Auto) 0.500 Neut % (Auto) 54.5 Lymph % (Auto) 36.5 [place] % (Auto) 6.5 Eos % (Auto) 1.7 Baso % (Auto) 0.3 Absolute Neuts (auto) 5.2 Absolute Lymphs (auto) 3.50 Total Counted Not Reportable D-Dimer Quant (PE/DVT) < 0.27 L Sodium 139 Potassium 3.9 Chloride 102 Carbon Dioxide 27.0 Anion Gap 10 BUN 12 Creatinine 1.01 Estim Creat Clear Calc 52.43 Est GFR (MDRD) Af Amer 72 Est GFR (MDRD) Non-Af 60 BUN/Creatinine Ratio 11.9 Glucose 212 H Calcium 9.1 Troponin I 0.027 10/14/18 10:20 WBC RBC Hgb Hct MCV MCH MCHC RDW RDW Differential Plt Count MPV Immature Gran % (Auto) Neut % (Auto) Lymph % (Auto) [place] % (Auto) Eos % (Auto) Baso % (Auto) Absolute Neuts (auto) Absolute Lymphs (auto) Total Counted D-Dimer Quant (PE/DVT) Sodium Potassium Chloride Carbon Dioxide Anion Gap BUN Creatinine Estim Creat Clear Calc Est GFR (MDRD) Af Amer Est GFR (MDRD) Non-Af BUN/Creatinine Ratio Glucose Calcium Troponin I 0.252 H Assessment/Plan All Active Problems (Last Reviewed 07/21/18 @ 12:12 by Alda Eubanks) Chest pain, rule out acute myocardial infarction (Acute) Bronchitis (Acute) History of cardiac radiofrequency ablation (Resolved ~04/07/17) Chest pain (Acute) The patient is a 58 year old F with past medical history as mentioned below including history of viral cardiomyopathy in 2005, SVT on metoprolol status post ablation came to ED with left-sided pleuritic chest pain started about 6 PM yesterday. Patient. More pain while on deep inspiration or coughing. She had sick contact with who had viral fever/sore throat and a small kid. She has cough , sore throat, postnasal drip for few days. Denies shortness of breath, palpitation, sweating or syncope. Chest pain that radiates from midsternal to posteriorly along left lateral wall. Twelve-lead EKG was done and reported as normal sinus rhythm at [address]-T changes similar to previous EKG of 15 October 2018. Chest x-ray does not show acute cardiopulmonary process. On basic blood work, glucose is elevated 212, first troponin negative. Second troponin slightly elevated 0.252. 1. Atypical chest pain most probably pleuritic pain: Patient is being admitted in PCU. Cycle cardiac enzymes. Respiratory panel and strep throat ordered. Treadmill nuclear Stress test tomorrow morning. 2. History of viral cardiomyopathy: Patient had cardiomyopathy, being managed in [facility] in 2005. Last echo in September 2015 reported as EF 60% with mild impaired luxation of left ventricle. No wall motion abnormality. Normal right ventricle systolic function. No significant valvular abnormality. She had normal stress test in September 2015. Another echo from 09/2009 reported as EF 65% with all cardiac chambers reported normal in size. Shunt is on metoprolol and follows Dr. Miller. 3. History of SVT status post ablation: Heart rate is controlled. Continue metoprolol 4. Diabetes mellitus type 2 on metformin: Hold metformin. Accu-Chek before meals and at bedtime cover with NovoLog sliding scale. 5. Hypothyroidism: On levothyroxine 25 mcg daily. Continued. TSH and FT4 tomorrow am. DVT prophylaxis: On Lovenox 40 mg sc daily Clinical Impression(s) from Imaging Studies Chest X-Ray 10/14/18 07:00 IMPRESSION: Degenerative changes, as described above. No demonstrated acute cardiopulmonary process. Laboratory Results 10/14/18 06:41: WBC 9.6, RBC 5.03, Hgb 14.2, Hct 43.9, MCV 87.3, MCH 28.2, MCHC 32.3, RDW 15.0 H, RDW Differential 47.9 H, Plt Count 247, MPV 9.3, Immature Gran % (Auto) 0.500, Neut % (Auto) 54.5, Lymph % (Auto) 36.5, [place] % (Auto) 6.5, Eos % (Auto) 1.7, Baso % (Auto) 0.3, Absolute Neuts (auto) 5.2, Absolute Lymphs (auto) 3.50, Total Counted Not Reportable 10/14/18 06:41: Sodium 139, Potassium 3.9, Chloride 102, Carbon Dioxide 27.0, Anion Gap 10, BUN 12, Creatinine 1.01, Estim Creat Clear Calc 52.43, Est GFR (MDRD) Af Amer 72, Est GFR (MDRD) Non-Af 60, BUN/Creatinine Ratio 11.9, Glucose 212 H, Calcium 9.1, Troponin I 0.027 10/14/18 06:41: D-Dimer Quant (PE/DVT) < 0.27 L 10/14/18 10:20: Troponin I 0.252 H Code Visit OBSV E&M: [id number] Initial observation care L3
[2018-10-14] MEDS: Enoxaparin 40 MG/0.4 ML Syringe SC (11:41)
--- NOTE | 2018-10-14 11:42 | HP.PCM_ITS ---
Problem List (1) Obstructive sleep apnea Status: Chronic (2) Chest pain, rule out acute myocardial infarction Status: Acute (3) Bronchitis Status: Acute (4) History of cardiac radiofrequency ablation Status: Resolved Comment: S/P ablation @ [facility] 04/07/2017; (5) Essential hypertension Status: Chronic (6) Endometrial hyperplasia without atypia, simple Status: Chronic (7) Chest pain Status: Acute (8) HLD (hyperlipidemia) Status: Chronic Qualifiers: Hyperlipidemia type: mixed hyperlipidemia Qualified Code(s): E78.2 - Mixed hyperlipidemia (9) Supraventricular tachycardia Status: Chronic Comment: S/P ablation @ [facility] 04/07/2017; History of Present Illness Date of Admission: 10/14/18 Chief Complaint: Chest pain since yesterday. The patient is a 58 year old F with past medical history as mentioned below in cluding history of viral cardiomyopathy in 2005, SVT on metoprolol status post ablation came to ED with left-sided pleuritic chest pain started about 6 PM yesterday. Patient. More pain while on deep inspiration or coughing. She had sick contact with who had viral fever/sore throat and a small kid. She has cough , sore throat, postnasal drip for few days. Denies shortness of breath, palpitation, sweating or syncope. Chest pain that radiates from midsternal to posteriorly along left lateral wall. Twelve-lead EKG was done and reported as normal sinus rhythm at [address]-T changes similar to previous EKG of 15 October 2018. Chest x-ray does not show acute cardiopulmonary process. On basic blood work, glucose is elevated 212, first troponin negative. Second troponin slightly elevated 0.252. Past Medical History Past Medical History (Chronic Problems): Chronic Problems (Last Reviewed 07/21/18 @ 12:12 by Alda Eubanks) Obstructive sleep apnea (Chronic) Essential hypertension (Chronic) Endometrial hyperplasia without atypia, simple (Chronic) HLD (hyperlipidemia) (Chronic) Supraventricular tachycardia (Chronic) S/P ablation @ [facility] 04/07/2017; Medical History: Medical History (Last Reviewed 07/21/18 @ 12:12 by Alda Eubanks) Essential hypertension (Chronic) I10 HLD (hyperlipidemia) (Chronic) E78.5 Supraventricular tachycardia (Chronic) I47.1 S/P ablation @ [facility] 04/07/2017; GERD (gastroesophageal reflux disease) K21.9 Hypothyroidism E03.9 HUSSEIN (obstructive sleep apnea) G47.33 HTN (hypertension) (Inactive) I10 Allergies clindamycin Allergy (Verified 10/14/18 06:37) Hives erythromycin base Allergy (Verified 10/14/18 06:37) Hives nitrofurantoin macrocrystalline [From Macrodantin] Allergy (Verified 10/14/18 06:37) Hives Sulfa (Sulfonamide Antibiotics) Allergy (Verified 10/14/18 06:37) Hives sulfamethoxazole [From Septra] Allergy (Verified 10/14/18 06:37) Hives trimethoprim [From Septra] Allergy (Verified 10/14/18 06:37) Hives Home Medications: Ambulatory Orders Medication Instructions Recorded Aspirin [Aspirin, Baby] 81 mg PO DAILY@0800 09/11/15 Ranitidine [Zantac] 150 mg PO BID 09/11/15 Zolpidem Tartrate [Ambien] 10 mg PO QHS PRN PRN 07/09/17 metformin 1,000 mg tablet 1,000 mg PO BID tab 09/09/17 coenzyme Q10 100 mg capsule 100 mg PO DAILY 08/02/18 levothyroxine 25 mcg tablet 50 mcg PO DAILY 08/02/18 metoprolol tartrate 50 mg tablet 75 mg PO BID #270 tab 08/02/18 Surgical History: Surgical History (Last Reviewed 08/02/18 @ 13:04 by Lisa Rocha) H/O prior ablation treatment Onset Date: 04/07/17 Z98.890 EP study and RF Catheter ablation at [facility] History of Z98.891 History of total right knee replacement (TKR) Onset Date: ~06/2014 Z96.651 History of hysterectomy Z90.710 Surgical History: hysterectomy, - - today total hysterectomy with BL salpingo- oopherectomy Lives: Spouse/ Significant Other Smoking Status: Never smoker Alcohol: None - *Family History Paternal Family History: Family History (Last Reviewed 08/02/18 @ 13:05 by Lisa Rocha) Grandmother CVA (cerebral vascular accident) Mother CAD (coronary artery disease) A-fib Heart disease Father Heart disease Hypertension Cancer Sister Fibromyalgia Sister Myocardial infarction Diabetes CAD (coronary artery disease) Brother Myocardial infarction CAD (coronary artery disease) Diabetes Brother Cancer Asthma Aunt Colon cancer Uncle Colon cancer Diabetes Review of Systems Constitutional: Denies: Chills, Fever, Weight Change HEENT: Reports: Nasal Congestion, Post Nasal Drip, Sore Throat. Denies: Head Aches, Sinus Congestion, Sinus Drainage Cardiovascular: Reports: Chest Pain. Denies: Palpitations Respiratory: Reports: Cough, Pleuritic Pain. Denies: Shortness of breath at rest, Sputum production Gastrointestinal: Denies: Abdominal Pain, Nausea, Vomiting Genitourinary: Denies: Dysuria Musculoskeletal: Reports: - - Right knee surgery. Denies: Joint Pain, Joint Tenderness Skin: Denies: Rash, Wounds Neurological: Denies: Numbness, Tingling, Focal weakness Psychiatric: Denies: Anxiety, Depression, Homicidal Ideations, Suicidal Ideations Hematologic/ Lymphatic: Denies: Easy Bruising, Easy Bleeding VTE Information - Inpt Only VTE Present on Admission: No VTE Mechan Device Prophylaxis: None VTE Pharm Prophylaxis ordered?: Yes Patient Problems: Active and Suspected Problems (Last Reviewed 07/21/18 @ 12:12 by Alda Eubanks) Chest pain, rule out acute myocardial infarction (Acute) - Physical Exam General: Alert, Oriented x3, Cooperative HEENT: Atraumatic, PERRLA, EOMI, Normocephalic Oral: No Gingival or Mucosal Lesions/ Ulcerations, - - No pharyngeal exudate or erythema Neck: Supple, No JVD, Negative Carotid Bruits Lungs: Clear to auscultation, Normal air movement, No rhonchi, No wheeze, No rales Cardiovascular: Regular rate, Regular Rhythm, Normal S1, Normal S2, No murmurs Abdomen: Bowel Sounds Present, Soft, Non Tender, Non-Distended Extremities: No edema, Capillary Refill Less than 3 Seconds Skin: No rashes, No breakdown Musculoskeletal: No Tenderness to Palpation of Joints or Extremities, Arthritic Changes Lymphatic: No Cervical, Supraclavicular, or Inguinal Adenopathy Neurological: Cranial nerves II-XII grossly intact, Deep Tendon Reflexes 2+/4 and Symmetrical, Neuro grossly intact, Motor Exam 5/5 strength throughout Psych/Mental Status: Normal Affect, Appropriate Vital Signs Temp Pulse Resp BP Pulse Ox 98.5 F 87 18 133/78 H 96 10/14/18 10:40 10/14/18 11:03 10/14/18 10:40 10/14/18 10:40 10/14/18 10:40 Oxygen Flow Rate (L/min) 2 Oxygen Delivery Method Room Air Weight: 253 lb 12.033 oz Body Mass Index (BMI) 43.5 Finger Stick Blood Glucose 162 Laboratory Tests Past 24 Hrs 10/14/18 10/14/18 10/14/18 06:41 06:41 06:41 WBC 9.6 RBC 5.03 Hgb 14.2 Hct 43.9 MCV 87.3 MCH 28.2 MCHC 32.3 RDW 15.0 H RDW Differential 47.9 H Plt Count 247 MPV 9.3 Immature Gran % (Auto) 0.500 Neut % (Auto) 54.5 Lymph % (Auto) 36.5 [place] % (Auto) 6.5 Eos % (Auto) 1.7 Baso % (Auto) 0.3 Absolute Neuts (auto) 5.2 Absolute Lymphs (auto) 3.50 Total Counted Not Reportable D-Dimer Quant (PE/DVT) < 0.27 L Sodium 139 Potassium 3.9 Chloride 102 Carbon Dioxide 27.0 Anion Gap 10 BUN 12 Creatinine 1.01 Estim Creat Clear Calc 52.43 Est GFR (MDRD) Af Amer 72 Est GFR (MDRD) Non-Af 60 BUN/Creatinine Ratio 11.9 Glucose 212 H Calcium 9.1 Troponin I 0.027 10/14/18 10:20 WBC RBC Hgb Hct MCV MCH MCHC RDW RDW Differential Plt Count MPV Immature Gran % (Auto) Neut % (Auto) Lymph % (Auto) [place] % (Auto) Eos % (Auto) Baso % (Auto) Absolute Neuts (auto) Absolute Lymphs (auto) Total Counted D-Dimer Quant (PE/DVT) Sodium Potassium Chloride Carbon Dioxide Anion Gap BUN Creatinine Estim Creat Clear Calc Est GFR (MDRD) Af Amer Est GFR (MDRD) Non-Af BUN/Creatinine Ratio Glucose Calcium Troponin I 0.252 H Assessment/Plan All Active Problems (Last Reviewed 07/21/18 @ 12:12 by Alda Eubanks) Chest pain, rule out acute myocardial infarction (Acute) Bronchitis (Acute) History of cardiac radiofrequency ablation (Resolved ~04/07/17) Chest pain (Acute) The patient is a 58 year old F with past medical history as mentioned below including history of viral cardiomyopathy in 2005, SVT on metoprolol status post ablation came to ED with left-sided pleuritic chest pain started about 6 PM yesterday. Patient. More pain while on deep inspiration or coughing. She had sick contact with who had viral fever/sore throat and a small kid. She has cough , sore throat, postnasal drip for few days. Denies shortness of breath, palpitation, sweating or syncope. Chest pain that radiates from midsternal to posteriorly along left lateral wall. Twelve-lead EKG was done and reported as normal sinus rhythm at [address]-T changes similar to previous EKG of 15 October 2018. Chest x-ray does not show acute cardiopulmonary process. On basic blood work, glucose is elevated 212, first troponin negative. Second troponin slightly elevated 0.252. 1. Atypical chest pain most probably pleuritic pain: Patient is being admitted in PCU. Cycle cardiac enzymes. Respiratory panel and strep throat ordered. Treadmill nuclear Stress test tomorrow morning. 2. History of viral cardiomyopathy: Patient had cardiomyopathy, being managed in [facility] in 2005. Last echo in September 2015 reported as EF 60% with mild impaired luxation of left ventricle. No wall motion abnormality. Normal right ventricle systolic function. No significant valvular abnormality. She had normal stress test in September 2015. Another echo from 09/2009 reported as EF 65% with all cardiac chambers reported normal in size. Shunt is on metoprolol and follows Dr. Miller. 3. History of SVT status post ablation: Heart rate is controlled. Continue metoprolol 4. Diabetes mellitus type 2 on metformin: Hold metformin. Accu-Chek before meals and at bedtime cover with NovoLog sliding scale. 5. Hypothyroidism: On levothyroxine 25 mcg daily. Continued. TSH and FT4 tomorrow am. DVT prophylaxis: On Lovenox 40 mg sc daily Clinical Impression(s) from Imaging Studies Chest X-Ray 10/14/18 07:00 IMPRESSION: Degenerative changes, as described above. No demonstrated acute cardiopulmonary process. Laboratory Results 10/14/18 06:41: WBC 9.6, RBC 5.03, Hgb 14.2, Hct 43.9, MCV 87.3, MCH 28.2, MCHC 32.3, RDW 15.0 H, RDW Differential 47.9 H, Plt Count 247, MPV 9.3, Immature Gran % (Auto) 0.500, Neut % (Auto) 54.5, Lymph % (Auto) 36.5, [place] % (Auto) 6.5, Eos % (Auto) 1.7, Baso % (Auto) 0.3, Absolute Neuts (auto) 5.2, Absolute Lymphs (auto) 3.50, Total Counted Not Reportable 10/14/18 06:41: Sodium 139, Potassium 3.9, Chloride 102, Carbon Dioxide 27.0, Anion Gap 10, BUN 12, Creatinine 1.01, Estim Creat Clear Calc 52.43, Est GFR (MDRD) Af Amer 72, Est GFR (MDRD) Non-Af 60, BUN/Creatinine Ratio 11.9, Glucose 212 H, Calcium 9.1, Troponin I 0.027 10/14/18 06:41: D-Dimer Quant (PE/DVT) < 0.27 L 10/14/18 10:20: Troponin I 0.252 H Code Visit OBSV E&M: [id number] Initial observation care L3
[2018-10-14 11:56] LABS: Bedside Glucose 191 mg/dL (70-110)
[2018-10-14] MEDS: Insulin Lispro 100 UNIT/ML INSULN.PEN SQ ×3 (12:40→21:47)
--- NOTE | 2018-10-14 15:26 | ECHOCS_ITS ---
Reason For Study: CHEST PAIN Procedure This was a 2D Doppler, Color Flow transthoracic echocardiogram. The study was technically difficult. Contrast injection was performed. Exam performed portable in patient room. Left Ventricle Normal LV size. Segmental dysfunction with preserved ejection fraction (see wall motion). The estimated ejection fraction is 55 %. Transmitral doppler flow suggestive of impaired relaxation of left ventricle. Mid-Posterior: Hypokinetic. Mid-Inferior: Hypokinetic. Inferior Letart : Hypokinetic. Right Ventricle Normal RV size. Normal systolic function. Atria The left atrium is mildly enlarged. Normal right atrium. No doppler evidence for ASD. Mitral Valve There is no mitral annular calcification. Mild mitral valve prolapse. Trivial mitral valve insufficiency. Tricuspid Valve Normal tricuspid valve. Trivial tricuspid valve insufficiency. Right ventricular systolic pressure estimated to be 25 mmHg. Aortic Valve Trisinus/trileaflet aortic valve. Mild focal aortic valve calcification. Pulmonic Valve The pulmonic valve is not well visualized. Great Vessels Normal sized aortic root. Pericardium/Pleural No pericardial effusion. Medication Diluted definity 3.0ml given slow IV push to enhance endocardial definition. MMode/2D Measurements & Calculations LVIDd: 5.3 cm IVSd: 1.2 cm Ao root diam: 3.4 cm LVIDs: 3.7 cm LVPWd: 1.2 cm RVDd: 2.8 cm FS: 29.5 % LAV(MOD-bp): 53.4 ml LA A4 area: 18.5 cm2 LA dimension(2D): 3.5 cm LAV(MOD-bp) Indexed: 24.7 ml/m2 LAV(MOD-sp2): 48.3 ml LAV(MOD-sp4): 58.4 ml RA A4 area: 12.3 cm2 Time Measurements MV dec time: 0.25 sec Doppler Measurements & Calculations MV E max bandar: 53.9 cm/sec Lat Peak E' Bandar: 5.9 cm/sec Med Peak E' Bandar: 3.4 cm/sec MV A max bandar: 70.8 cm/sec E/E' lat: 9.2 E/E' med: 16.0 MV E/A: 0.76 Ao V2 max: 105.4 cm/sec LV V1 max: 65.5 cm/sec PA V2 max: 87.9 cm/sec Ao max P.4 mmHg LV V1 max P.7 mmHg TR max bandar: 232.7 cm/sec TR max P.7 mmHg Interpretation Summary The study was technically difficult. Contrast injection was performed. Segmental dysfunction with preserved ejection fraction (see wall motion). The estimated ejection fraction is 55 %. The left atrium is mildly enlarged. Mild mitral valve prolapse. Trivial mitral valve insufficiency. Trivial tricuspid valve insufficiency. Mild focal aortic valve calcification. Right ventricular systolic pressure estimated to be 25 mmHg. Transmitral doppler flow suggestive of impaired relaxation of left ventricle Ordering Physician: Michael Landis Referring Physician: Judith Penny Performed By: Dayan Lebron, ARASH, RVT
[2018-10-14 16:46] LABS: Bedside Glucose 158 mg/dL (70-110)
[2018-10-14] MEDS: Clopidogrel Bisulfate 300 MG Tablet PO (16:48)
--- NOTE | 2018-10-14 19:40 | PCM.CONS.C ---
Problem List (1) Chest pain, rule out acute myocardial infarction Status: Acute (2) NSTEMI (non-ST elevated myocardial infarction) Status: Acute (3) Cardiomyopathy Status: Chronic Qualifiers: Cardiomyopathy type: unspecified Qualified Code(s): I42.9 - Cardiomyopathy, unspecified (4) Supraventricular tachycardia Status: Chronic Comment: S/P ablation @ [facility] 04/07/2017; (5) History of cardiac radiofrequency ablation Status: Resolved Comment: S/P ablation @ [facility] 04/07/2017; (6) HLD (hyperlipidemia) Status: Chronic Qualifiers: Hyperlipidemia type: mixed hyperlipidemia Qualified Code(s): E78.2 - Mixed hyperlipidemia (7) Essential hypertension Status: Chronic (8) Diabetes mellitus Status: Acute Reason for Consult Date of Consultation: 10/14/18 History of Present Illness: The patient is a 58 year old white female with a past medical history of a non-CAD/viral mediated cardiomyopathy, SVT status post RFA, hyperlipidemia, and hypertension who presents for evaluation of chest discomfort and subsequent cardiac enzyme abnormality compatible with a non-ST segment elevation NC. The patient states she was in her usual state of health until yesterday. Yesterday she began to believe she developed her 's recent viral illness as she was developing a raspy throat and coughing. She noted with deep breath and coughing she had a somewhat sharp discomfort in her left lower chest area. However today she noted a discomfort that radiated across to her left chest into the left lower chest area. She did not note any acute shortness of breath or dyspnea. There was no associated nausea, emesis, or diaphoresis. She did not lose consciousness. She states she was concerned that she should present to the hospital for evaluation. She decided to contact the EMS system. However prior to doing so she decided to take a shower. She then contacted the EMS system and was brought to the hospital for further evaluation. She had an initial troponin I level which was thought to be negative. Her ECG demonstrated sinus rhythm with a leftward axis with poor R wave progression in the nonspecific T wave abnormality. A d-dimer level was performed which was reported as negative. Chest x-ray was performed which was reported as demonstrating no acute cardiopulmonary disease process. She was placed in the PCU for further evaluation. At the present time she states she feels better. She does not believe she is having the same discomfort as she had before. However, she has been followed with cardiac enzymes. Her troponin I level has increased to 1.090 considered abnormal. She was referred for cardiovascular evaluation including consideration for diagnostic cardiac catheterization. He has denied any obvious orthopnea or PND or worsening peripheral pitting edema. There has been no near syncope or syncope. She denies any positional component to her discomfort such as being worse when supine and better when sitting upright. She does not believe she has had any fevers. 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 At that time based upon information she presented her left ventricle was thought to be severely dysfunctional with an LVEF of 15%. She had undergone a diagnostic cardiac catheterization which demonstrated no obvious CAD. She was treated medically. In 2009 she underwent reevaluation with a transthoracic echocardiogram. At that time her left ventricular systolic function improved and her LVEF was reported at 65%. She has subsequently undergone evaluation with a transthoracic echocardiogram and a pharmacologic stress nuclear imaging study in 2016. The results are as noted below. [] Past Medical History Allergies/Adverse Reactions: Allergies clindamycin Allergy (Verified 10/14/18 06:37) Hives erythromycin base Allergy (Verified 10/14/18 06:37) Hives nitrofurantoin macrocrystalline [From Macrodantin] Allergy (Verified 10/14/18 06:37) Hives Sulfa (Sulfonamide Antibiotics) Allergy (Verified 10/14/18 06:37) Hives sulfamethoxazole [From Septra] Allergy (Verified 10/14/18 06:37) Hives trimethoprim [From Septra] Allergy (Verified 10/14/18 06:37) Hives Home Medications: Ambulatory Orders Medication Instructions Recorded Aspirin [Aspirin, Baby] 81 mg PO DAILY@0800 09/11/15 Ranitidine [Zantac] 150 mg PO BID 09/11/15 Zolpidem Tartrate [Ambien] 10 mg PO QHS PRN PRN 07/09/17 metformin 1,000 mg tablet 1,000 mg PO BID tab 09/09/17 coenzyme Q10 100 mg capsule 100 mg PO DAILY 08/02/18 levothyroxine 25 mcg tablet 50 mcg PO DAILY 08/02/18 metoprolol tartrate 50 mg tablet 75 mg PO BID #270 tab 08/02/18 Past Medical History (Chronic Problems): Chronic Problems (Last Reviewed 07/21/18 @ 12:12 by Alda Eubanks) Obstructive sleep apnea (Chronic) Cardiomyopathy (Chronic) Essential hypertension (Chronic) Endometrial hyperplasia without atypia, simple (Chronic) HLD (hyperlipidemia) (Chronic) Supraventricular tachycardia (Chronic) S/P ablation @ [facility] 04/07/2017; Surgical History: hysterectomy, - - today total hysterectomy with BL salpingo-oopherectomy - *Family History Paternal Family History: Family History (Last Reviewed 08/02/18 @ 13:05 by Lisa Rocha) Grandmother CVA (cerebral vascular accident) Mother CAD (coronary artery disease) A-fib Heart disease Father Heart disease Hypertension Cancer Sister Fibromyalgia Sister Myocardial infarction Diabetes CAD (coronary artery disease) Brother Myocardial infarction CAD (coronary artery disease) Diabetes Brother Cancer Asthma Aunt Colon cancer Uncle Colon cancer Diabetes Lives: Spouse/ Significant Other Smoking Status: Never smoker Alcohol: None Drugs: None Review of Systems - Review of Systems Cardiovascular: Reports: Chest Discomfort. Denies: Shortness of Breath, Orthopnea, PND, Peripheral Edema, Palpitations, Lightheadedness, Dizziness, Near Syncope, Syncope Respiratory: Reports: Cough, Pleurtic Chest Pain. Denies: Hemoptysis Gastrointestinal: Denies: Hematemesis, Hematochezia, Melena Genitourinary: Denies: Dysuria, Hematuria Skin: Denies: Rash Subjectve: This is a 58-year-old obese white female who appears to be resting comfortably at the moment in no acute distress. Objective: Vital Signs Temp Pulse Resp BP Pulse Ox 98.4 F 82 18 131/78 H 96 10/14/18 16:40 10/14/18 16:48 10/14/18 16:40 10/14/18 16:40 10/14/18 16:40 Oxygen Flow Rate (L/min) 2 Oxygen Delivery Method Room Air Weight: 253 lb 12.033 oz Body Mass Index (BMI) 43.5 Finger Stick Blood Glucose 162 Intake and Output for Last 24 Hours 10/12/18 10/13/18 10/14/18 23:59 23:59 23:59 Intake Total 960 / 960 Balance 960 / 960 General: Awake, Alert, Oriented x 3, Cooperative, No Acute Distress, Obese HEENT: Atraumatic, Normocephalic, Microcephalic, PERRL, EOMI, Sclera Non Icteric Oral: Moist Mucosa Neck: Supple, Good ROM, No JVD Lungs: Clear to auscultation Cardiovascular: Regular Rhythm, Normal S1, Normal S2 Vascular: No Carotid Bruits Abdomen: Bowel Sounds Present, Soft, Non Tender, Obese Extremities: No Cyanosis, No Clubbing, No edema Neurological: No Focal Motor or Sensory Deficit Psych/Mental Status: Appropriate 10/14/18 06:41: WBC 9.6, RBC 5.03, Hgb 14.2, Hct 43.9, MCV 87.3, MCH 28.2, MCHC 32.3, RDW 15.0 H, RDW Differential 47.9 H, Plt Count 247, MPV 9.3, Immature Gran % (Auto) 0.500, Neut % (Auto) 54.5, Lymph % (Auto) 36.5, [place] % (Auto) 6.5, Eos % (Auto) 1.7, Baso % (Auto) 0.3, Absolute Neuts (auto) 5.2, Total Counted Not Reportable 10/14/18 06:41: Sodium 139, Potassium 3.9, Chloride 102, Carbon Dioxide 27.0, Anion Gap 10, BUN 12, Creatinine 1.01, Est GFR (MDRD) Af Amer 72, Est GFR (MDRD) Non-Af 60, BUN/Creatinine Ratio 11.9, Glucose 212 H, Calcium 9.1, Troponin I 0.027 10/14/18 06:41: D-Dimer Quant (PE/DVT) < 0.27 L 10/14/18 10:20: Troponin I 0.252 H 10/14/18 13:10: Troponin I 1.090 H* Rhythm: Sinus rhythm; one episode of a somewhat irregular nonsustained wide-complex tachycardia of approximately 6 beats EKG: As noted above ECHO: 10/18/2015 Technically difficult study; contrast injection performed Based upon the 2D echocardiographic and contrast images obtained there appeared to be grossly normal left ventricular size, wall motion, and systolic function with an LVEF of 60%; mild mitral valve prolapse with trivial MR; trivial TR; mild focal aortic valve thickening; estimated RV systolic pressure of 30 mmHg; decreased diastolic compliance; agitated saline contrast study considered negative for right to left interatrial shunt Stress Test: DATE OF SERVICE: 10/16/2015 EXERCISE TOLERANCE TEST: The patient underwent pharmacologic (regadenoson) evaluation with a peak heart rate of 113 beats per minute (68% predicted maximum heart rate) and a peak blood pressure of 146/84 mmHg. The baseline ECG demonstrated normal sinus rhythm. The peak pharmacologic ECG demonstrated T-wave abnormalities/inversion in leads II, III and aVF with subsequent return to baseline in recovery. There were no obvious cardiac dysrhythmias pretest, during pharmacologic infusion, or recovery. The patient had no report of chest discomfort during pharmacologic infusion or recovery. The examination was discontinued secondary to completion of protocol. IMPRESSION: 1. Pharmacologic (regadenoson) evaluation. 2. Peak pharmacologic ECG with T-wave abnormalities/inversion in leads II, III, aVF with subsequent gradual resolution towards baseline in recovery. 3. Nuclear images pending. MYOCARDIAL PERFUSION IMAGING STUDY: TECHNIQUE: The patient was injected with 14.8 mCi of Tc99m Cardiolite and subsequently rest SPECT Cardiolite nuclear imaging was obtained in the horizontal long, vertical long and short axes views. The patient underwent pharmacologic (regadenoson) evaluation with a peak heart rate of 113 beats per minute (68% predicted maximum heart rate) and a peak blood pressure of 146/84 mmHg. The patient was injected with 44.9 mCi of Tc99m Cardiolite and subsequently stress SPECT Cardiolite nuclear imaging was obtained in the horizontal long, vertical long and short axes views. A gated Cardiolite study at peak stress was obtained. INTERPRETATION: Rest and stress SPECT Cardiolite nuclear imaging, status post realignment and normalization, demonstrates significant extracardiac/hepatic and gastrointestinal tracer uptake near the inferior segments. Otherwise, there appears to be a small area of subtle diminished tracer uptake near the lateral apical segments without significant change between rest and stress. There is end systolic thickening and brightening. The gated Cardiolite study demonstrates myocardial thickening and inward wall motion. The reported LVEF is 64%. The aforementioned changes appear compatible with the effects of physiologic apical thinning with no myocardial perfusion changes considered diagnostic for stress-induced myocardial ischemia or previous myocardial injury/infarction. IMPRESSION: 1. Rest and stress SPECT Cardiolite nuclear imaging demonstrate a small area of subtle diminished tracer uptake near the lateral apical segments appearing compatible with physiologic apical thinning with no myocardial perfusion changes considered diagnostic for stress-induced myocardial ischemia or previous myocardial injury/infarction. 2. The gated Cardiolite study reports an LVEF of 64%. Assessment/Plan 1. Chest pain The patient does have chest pain. The etiology is unclear. Her chest pain appeared to be somewhat pleuritic in nature. This may be secondary to an underlying respiratory tract related illness. She is also undergone evaluation with a d-dimer level which was negative. Thus she did not proceed with additional noninvasive studies such as chest CT scan for evidence of thromboembolic disease. Her chest discomfort appears to be atypical and not classic for underlying pericardial disease such as acute pericarditis. Her chest discomfort is also not classic for acute coronary syndrome. However, as she is not been definitively diagnosed for another etiology to explain her discomfort, and she now has abnormal troponin I levels of uncertain etiology, it is not unreasonable to consider her for further cardiovascular evaluation. This will include a follow-up transthoracic echocardiogram to reassess her left ventricular wall motion and systolic function and for any obvious pericardial related issues. It would also include a diagnostic cardiac catheterization to evaluate for any obvious CAD that may be related to her clinical scenario. If these studies are unremarkable then consideration will have to be given as to whether or not her discomfort is related to an underlying pulmonary related process and/or, despite a negative d-dimer, she requires a chest CT scan to further evaluate for any obvious thromboembolic disease. 2. Non-ST segment elevation NC Her abnormal troponin I levels suggest a non-ST segment elevation NC. However this may not be a type I event this might be a type II supply demand mismatch event from a non-cardiovascular issue. She will need to continue cardiovascular evaluation as noted above. She has not been diagnosed with other etiologies for abnormal troponin I level such as an acute WASTE PICKER event, acute renal failure, or an underlying sepsis mediated type of event, etc. 3. 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 It is unclear as to whether or not her symptoms might be related to a recurrent viral mediated event. Thus she will have reevaluation of her left ventricular wall motion and systolic function with a transthoracic echocardiogram. 4. Hyperlipidemia She will continue lipid-lowering therapy as deemed appropriate. 5. Hypertension She will need to continue medical management with adjustment as deemed appropriate. 6. Diabetes mellitus She will continue under the care of internal medicine. The above was discussed with the patient. She was agreeable to this approach. The above was also discussed with Dr. Landis of the [facility] staff. This note was generated with I'm[employer]ation software. It may contain incorrect words, spelling, and punctuation that were not noted in checking the note before signing.
--- NOTE | 2018-10-14 19:45 | CON.PCM_ITS ---
Problem List (1) Chest pain, rule out acute myocardial infarction Status: Acute (2) NSTEMI (non-ST elevated myocardial infarction) Status: Acute (3) Cardiomyopathy Status: Chronic Qualifiers: Cardiomyopathy type: unspecified Qualified Code(s): I42.9 - Cardiomyopathy, unspecified (4) Supraventricular tachycardia Status: Chronic Comment: S/P ablation @ [facility] 04/07/2017; (5) History of cardiac radiofrequency ablation Status: Resolved Comment: S/P ablation @ [facility] 04/07/2017; (6) HLD (hyperlipidemia) Status: Chronic Qualifiers: Hyperlipidemia type: mixed hyperlipidemia Qualified Code(s): E78.2 - Mixed hyperlipidemia (7) Essential hypertension Status: Chronic (8) Diabetes mellitus Status: Acute Reason for Consult Date of Consultation: 10/14/18 History of Present Illness: The patient is a 58 year old white female with a past medical history of a non- CAD/viral mediated cardiomyopathy, SVT status post RFA, hyperlipidemia, and hypertension who presents for evaluation of chest discomfort and subsequent cardiac enzyme abnormality compatible with a non-ST segment elevation WA. The patient states she was in her usual state of health until yesterday. Yesterday she began to believe she developed her 's recent viral illness as she was developing a raspy throat and coughing. She noted with deep breath and coughing she had a somewhat sharp discomfort in her left lower chest area. However today she noted a discomfort that radiated across to her left chest into the left lower chest area. She did not note any acute shortness of breath or dyspnea. There was no associated nausea, emesis, or diaphoresis. She did not lose consciousness. She states she was concerned that she should present to the hospital for evaluation. She decided to contact the EMS system. However prior to doing so she decided to take a shower. She then contacted the EMS system and was brought to the hospital for further evaluation. She had an initial troponin I level which was thought to be negative. Her ECG demonstrated sinus rhythm with a leftward axis with poor R wave progression in the nonspecific T wave abnormality. A d-dimer level was performed which was reported as negative. Chest x-ray was performed which was reported as demonstrating no acute cardiopulmonary disease process. She was placed in the PCU for further evaluation. At the present time she states she feels better. She does not believe she is having the same discomfort as she had before. However, she has been followed with cardiac enzymes. Her troponin I level has increased to 1.090 considered abnormal. She was referred for cardiovascular evaluation including consideration for diagnostic cardiac catheterization. He has denied any obvious orthopnea or PND or worsening peripheral pitting edema. There has been no near syncope or syncope. She denies any positional component to her discomfort such as being worse when supine and better when sitting upright. She does not believe she has had any fevers. 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 At that time based upon information she presented her left ventricle was thought to be severely dysfunctional with an LVEF of 15%. She had undergone a diagnostic cardiac catheterization which demonstrated no obvious CAD. She was treated medically. In 2009 she underwent reevaluation with a transthoracic echocardiogram. At that time her left ventricular systolic function improved and her LVEF was reported at 65%. She has subsequently undergone evaluation with a transthoracic echocardiogram and a pharmacologic stress nuclear imaging study in 2016. The results are as noted below. [] Past Medical History Allergies/Adverse Reactions: Allergies clindamycin Allergy (Verified 10/14/18 06:37) Hives erythromycin base Allergy (Verified 10/14/18 06:37) Hives nitrofurantoin macrocrystalline [From Macrodantin] Allergy (Verified 10/14/18 06:37) Hives Sulfa (Sulfonamide Antibiotics) Allergy (Verified 10/14/18 06:37) Hives sulfamethoxazole [From Septra] Allergy (Verified 10/14/18 06:37) Hives trimethoprim [From Septra] Allergy (Verified 10/14/18 06:37) Hives Home Medications: Ambulatory Orders Medication Instructions Recorded Aspirin [Aspirin, Baby] 81 mg PO DAILY@0800 09/11/15 Ranitidine [Zantac] 150 mg PO BID 09/11/15 Zolpidem Tartrate [Ambien] 10 mg PO QHS PRN PRN 07/09/17 metformin 1,000 mg tablet 1,000 mg PO BID tab 09/09/17 coenzyme Q10 100 mg capsule 100 mg PO DAILY 08/02/18 levothyroxine 25 mcg tablet 50 mcg PO DAILY 08/02/18 metoprolol tartrate 50 mg tablet 75 mg PO BID #270 tab 08/02/18 Past Medical History (Chronic Problems): Chronic Problems (Last Reviewed 07/21/18 @ 12:12 by Alda Eubanks) Obstructive sleep apnea (Chronic) Cardiomyopathy (Chronic) Essential hypertension (Chronic) Endometrial hyperplasia without atypia, simple (Chronic) HLD (hyperlipidemia) (Chronic) Supraventricular tachycardia (Chronic) S/P ablation @ [facility] 04/07/2017; Surgical History: hysterectomy, - - today total hysterectomy with BL salpingo-oopherectomy - *Family History Paternal Family History: Family History (Last Reviewed 08/02/18 @ 13:05 by Lisa Rocha) Grandmother CVA (cerebral vascular accident) Mother CAD (coronary artery disease) A-fib Heart disease Father Heart disease Hypertension Cancer Sister Fibromyalgia Sister Myocardial infarction Diabetes CAD (coronary artery disease) Brother Myocardial infarction CAD (coronary artery disease) Diabetes Brother Cancer Asthma Aunt Colon cancer Uncle Colon cancer Diabetes Lives: Spouse/ Significant Other Smoking Status: Never smoker Alcohol: None Drugs: None Review of Systems - Review of Systems Cardiovascular: Reports: Chest Discomfort. Denies: Shortness of Breath, Orthopnea, PND, Peripheral Edema, Palpitations, Lightheadedness, Dizziness, Near Syncope, Syncope Respiratory: Reports: Cough, Pleurtic Chest Pain. Denies: Hemoptysis Gastrointestinal: Denies: Hematemesis, Hematochezia, Melena Genitourinary: Denies: Dysuria, Hematuria Skin: Denies: Rash Subjectve: This is a 58-year-old obese white female who appears to be resting comfortably at the moment in no acute distress. Objective: Vital Signs Temp Pulse Resp BP Pulse Ox 98.4 F 82 18 131/78 H 96 10/14/18 16:40 10/14/18 16:48 10/14/18 16:40 10/14/18 16:40 10/14/18 16:40 Oxygen Flow Rate (L/min) 2 Oxygen Delivery Method Room Air Weight: 253 lb 12.033 oz Body Mass Index (BMI) 43.5 Finger Stick Blood Glucose 162 Intake and Output for Last 24 Hours 10/12/18 10/13/18 10/14/18 23:59 23:59 23:59 Intake Total 960 / 960 Balance 960 / 960 General: Awake, Alert, Oriented x 3, Cooperative, No Acute Distress, Obese HEENT: Atraumatic, Normocephalic, Microcephalic, PERRL, EOMI, Sclera Non Icteric Oral: Moist Mucosa Neck: Supple, Good ROM, No JVD Lungs: Clear to auscultation Cardiovascular: Regular Rhythm, Normal S1, Normal S2 Vascular: No Carotid Bruits Abdomen: Bowel Sounds Present, Soft, Non Tender, Obese Extremities: No Cyanosis, No Clubbing, No edema Neurological: No Focal Motor or Sensory Deficit Psych/Mental Status: Appropriate 10/14/18 06:41: WBC 9.6, RBC 5.03, Hgb 14.2, Hct 43.9, MCV 87.3, MCH 28.2, MCHC 32.3, RDW 15.0 H, RDW Differential 47.9 H, Plt Count 247, MPV 9.3, Immature Gran % (Auto) 0.500, Neut % (Auto) 54.5, Lymph % (Auto) 36.5, [place] % (Auto) 6.5, Eos % (Auto) 1.7, Baso % (Auto) 0.3, Absolute Neuts (auto) 5.2, Total Counted Not Reportable 10/14/18 06:41: Sodium 139, Potassium 3.9, Chloride 102, Carbon Dioxide 27.0, Anion Gap 10, BUN 12, Creatinine 1.01, Est GFR (MDRD) Af Amer 72, Est GFR (MDRD) Non-Af 60, BUN/Creatinine Ratio 11.9, Glucose 212 H, Calcium 9.1, Troponin I 0.027 10/14/18 06:41: D-Dimer Quant (PE/DVT) < 0.27 L 10/14/18 10:20: Troponin I 0.252 H 10/14/18 13:10: Troponin I 1.090 H* Rhythm: Sinus rhythm; one episode of a somewhat irregular nonsustained wide- complex tachycardia of approximately 6 beats EKG: As noted above ECHO: 10/18/2015 Technically difficult study; contrast injection performed Based upon the 2D echocardiographic and contrast images obtained there appeared to be grossly normal left ventricular size, wall motion, and systolic function with an LVEF of 60%; mild mitral valve prolapse with trivial MR; trivial TR; mild focal aortic valve thickening; estimated RV systolic pressure of 30 mmHg; decreased diastolic compliance; agitated saline contrast study considered negative for right to left interatrial shunt Stress Test: DATE OF SERVICE: 10/16/2015 EXERCISE TOLERANCE TEST: The patient underwent pharmacologic (regadenoson) evaluation with a peak heart rate of 113 beats per minute (68% predicted maximum heart rate) and a peak blood pressure of 146/84 mmHg. The baseline ECG demonstrated normal sinus rhythm. The peak pharmacologic ECG demonstrated T-wave abnormalities/inversion in leads II, III and aVF with subsequent return to baseline in recovery. There were no obvious cardiac dysrhythmias pretest, during pharmacologic infusion, or recovery. The patient had no report of chest discomfort during pharmacologic infusion or recovery. The examination was discontinued secondary to completion of protocol. IMPRESSION: 1. Pharmacologic (regadenoson) evaluation. 2. Peak pharmacologic ECG with T-wave abnormalities/inversion in leads II, III, aVF with subsequent gradual resolution towards baseline in recovery. 3. Nuclear images pending. MYOCARDIAL PERFUSION IMAGING STUDY: TECHNIQUE: The patient was injected with 14.8 mCi of Tc99m Cardiolite and subsequently rest SPECT Cardiolite nuclear imaging was obtained in the horizontal long, vertical long and short axes views. The patient underwent pharmacologic (regadenoson) evaluation with a peak heart rate of 113 beats per minute (68% predicted maximum heart rate) and a peak blood pressure of 146/84 mmHg. The patient was injected with 44.9 mCi of Tc99m Cardiolite and subsequently stress SPECT Cardiolite nuclear imaging was obtained in the horizontal long, vertical long and short axes views. A gated Cardiolite study at peak stress was obtained. INTERPRETATION: Rest and stress SPECT Cardiolite nuclear imaging, status post realignment and normalization, demonstrates significant extracardiac/hepatic and gastrointestinal tracer uptake near the inferior segments. Otherwise, there appears to be a small area of subtle diminished tracer uptake near the lateral apical segments without significant change between rest and stress. There is end systolic thickening and brightening. The gated Cardiolite study demonstrates myocardial thickening and inward wall motion. The reported LVEF is 64%. The aforementioned changes appear compatible with the effects of physiologic apical thinning with no myocardial perfusion changes considered diagnostic for stress-induced myocardial ischemia or previous myocardial injury/infarction. IMPRESSION: 1. Rest and stress SPECT Cardiolite nuclear imaging demonstrate a small area of subtle diminished tracer uptake near the lateral apical segments appearing compatible with physiologic apical thinning with no myocardial perfusion changes considered diagnostic for stress-induced myocardial ischemia or previous myocardial injury/infarction. 2. The gated Cardiolite study reports an LVEF of 64%. Assessment/Plan 1. Chest pain The patient does have chest pain. The etiology is unclear. Her chest pain appeared to be somewhat pleuritic in nature. This may be secondary to an underlying respiratory tract related illness. She is also undergone evaluation with a d-dimer level which was negative. Thus she did not proceed with additional noninvasive studies such as chest CT scan for evidence of thromboembolic disease. Her chest discomfort appears to be atypical and not classic for underlying pericardial disease such as acute pericarditis. Her chest discomfort is also not classic for acute coronary syndrome. However, as she is not been definitively diagnosed for another etiology to explain her discomfort, and she now has abnormal troponin I levels of uncertain etiology, it is not unreasonable to consider her for further cardiovascular evaluation. This will include a follow-up transthoracic echocardiogram to reassess her left ventricular wall motion and systolic function and for any obvious pericardial related issues. It would also include a diagnostic cardiac catheterization to evaluate for any obvious CAD that may be related to her clinical scenario. If these studies are unremarkable then consideration will have to be given as to whether or not her discomfort is related to an underlying pulmonary related process and/or, despite a negative d-dimer, she requires a chest CT scan to further evaluate for any obvious thromboembolic disease. 2. Non-ST segment elevation WA Her abnormal troponin I levels suggest a non-ST segment elevation WA. However this may not be a type I event this might be a type II supply demand mismatch event from a non-cardiovascular issue. She will need to continue cardiovascular evaluation as noted above. She has not been diagnosed with other etiologies for abnormal troponin I level such as an acute CAREER DEVELOPMENT MANAGER event, acute renal failure, or an underlying sepsis mediated type of event, etc. 3. 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 It is unclear as to whether or not her symptoms might be related to a recurrent viral mediated event. Thus she will have reevaluation of her left ventricular wall motion and systolic function with a transthoracic echocardiogram. 4. Hyperlipidemia She will continue lipid-lowering therapy as deemed appropriate. 5. Hypertension She will need to continue medical management with adjustment as deemed appropriate. 6. Diabetes mellitus She will continue under the care of internal medicine. The above was discussed with the patient. She was agreeable to this approach. The above was also discussed with Dr. Landis of the [facility] staff. This note was generated with [employer] software. It may contain incorrect words, spelling, and punctuation that were not noted in checking the note before signing.
[2018-10-14 19:59] LABS: Bacteria 0 SEEN /hpf (None Seen); Mucous, Urine 0 SEEN /hpf (<or=2+); Red Blood Cells-Urine 0 SEEN /hpf (0-5)
[2018-10-14 20:03] LABS: Color, Urine Yellow (Yellow); Glucose, Dipstick Normal (Normal); Ketone-Dipstick Negative (Negative); Leukocyte Esterase-Dipstick 25 /ul (Negative); Nitrite-Dipstick Negative (Negative); Occult Blood-Urine Negative /ul (Negative); Protein-Dipstick Negative (Negative); Urine Bilirubin Dipstick Negative (Negative); Urine Clarity Clear (Clear); Urine Urobilinogen Normal (Normal)
[2018-10-14 20:09] LABS: Squamous Epithelial Cells - UA 0-5 SEEN /hpf (5-10); White Blood Cells 0-5 SEEN /hpf (0-5)
[2018-10-14] MEDS: Metoprolol Tartrate 50 MG Tablet 75 MG PO (21:47)
[2018-10-14] MEDS: Famotidine 20 MG Tablet PO (21:47)
[2018-10-14 22:01] LABS: Bedside Glucose 173 mg/dL (70-110)
[2018-10-14] MEDS: Zolpidem Tartrate 5 MG Tablet PO (23:45)
[2018-10-15] VITALS (27 sets, daily range): BP systolic 98–158; BP diastolic 40–105; PULSE 65–85; RESP 12–23; TEMP 36.6–36.9; O2SAT 94–98; BMI 43.4
[2018-10-15 04:49] LABS: Absolute Lymphocyte Count 3.37 X10^3/ul (0.83-4.51); Basophil# 0.06 X10^3/uL; Basophil% 0.6 % (0-1); Eosinophil# 0.15 X10^3/uL; Eosinophils% 1.4 % (0-5); Hematocrit 42.1 % (37-47); Hemoglobin 13.5 g/dl (12.0-15.0); Lymphocyte # 3.37 X10^3/ul (4.0); Lymphocyte % 32.4 % (19-41); Mean Corp Hgb Conc 32.1 g/gl (32-36); Mean Corpuscular Hgb 27.8 pg (27.0-32.0); Mean Corpuscular Volume 86.6 fL (81-99); Mean Platelet Vol. 9.5 fl (6.2-12.0); Monocyte# 0.73 X10^3/uL; Neutrophil # 6.03 X10^3/uL (2.7-7.7); Platelet Count 289 K/mm3 (150-450); RBC Distribution Width CV 14.9 % (11.6-14.6); RBC Distribution Width SD 47.3 fl (35.1-43.9); Red Blood Count 4.86 M/mm3 (4.2-5.4); White Blood Count 10.4 K/mm3 (4.4-11.0)
[2018-10-15 04:53] LABS: POSITIVE COUNT NO; POSITIVE DIFFERENTIAL NO; POSITIVE MORPHOLOGY NO
[2018-10-15 04:58] LABS: International Normalized Ratio 1.2; Prothrombin Time (Protime)PT. 14.5 SECONDS (11.7-14.9)
[2018-10-15 04:59] LABS: Partial Thromboplast Time 31.3 Seconds (24.1-36.2)
[2018-10-15 05:36] LABS: BUN 14 mg/dL (7-18); Creatinine, Serum 0.94 mg/dL (0.55-1.02); Estimated Creatinine Clearance 56.33 ml/min; Glucose 162 mg/dL (74-106)
[2018-10-15 05:37] LABS: Anion Gap 9 (5-15); BUN/Creat Ratio 14.9 RATIO (10-20); Calcium,Total 9.2 mg/dL (8.5-10.1); Chloride 105 mmol/L (98-107); Cholesterol 162 mg/dL (200); EST Glomerular Filtration Rate 65 mL/min (>60); Est Glom Filt Rate - Afr Amer 78 mL/min (>60); High Density Lipoprotein 32 mg/dL; Potassium 4.1 mmol/L (3.5-5.1); Sodium Level 139 mmol/L (136-145); T4 Free Direct 1.25 ng/dL (0.76-1.46); Thyroid Stim Hormone (TSH) 2.22 uIU/mL (0.358-3.74); Triglycerides 235 mg/dL; Very Low Density Lipoprotein 47 mg/dL (5-40)
--- NOTE | 2018-10-15 05:55 | EKG12_ITS ---
Test Reason : AM EKG Blood Pressure : / mmHG Vent. Rate : 072 BPM Atrial Rate : 072 BPM P-R Int : 142 ms QRS Dur : 086 ms QT Int : 414 ms P-R-T Axes : 025 -23 098 degrees QTc Int : 453 ms Normal sinus rhythm Low voltage QRS Nonspecific T wave abnormality Abnormal ECG Confirmed by BURT SANDERSON, BEBETO ([id number]), legal editor MAIKEL JEFF ([id number]) on 10/25/2018 11:56:50 AM Referred By: NIGEL Confirmed By:BEBETO ADLLAS MD
[2018-10-15] MEDS: Aspirin E.C. 81 MG Tablet PO (06:02)
[2018-10-15] MEDS: Metoprolol Tartrate 50 MG Tablet 75 MG PO (06:02)
[2018-10-15] MEDS: Famotidine 20 MG Tablet PO ×2 (06:02→21:32)
[2018-10-15] MEDS: Levothyroxine 50 MCG Tablet PO (06:02)
[2018-10-15] MEDS: 0.9% Normal Saline 1,000 ML 15 ML IV (06:03)
[2018-10-15] MEDS: Clopidogrel Bisulfate 75 MG Tablet PO (06:05)
[2018-10-15 06:55] LABS: Bedside Glucose 159 mg/dL (70-110)
--- NOTE | 2018-10-15 08:54 | CASEMGMT ---
According to the [facility] website, the following are in-network tertiary facilities: [facility], [facility], [facility], [facility], [facility], [place], [facility], and . Mercedes JAIMES CM
--- NOTE | 2018-10-15 10:02 | PCM.PN.CARD ---
Subjectve: The patient states her chest discomfort has improved. She has no other new acute symptoms. He is now status post diagnostic cardiac catheterization. It appears she has developed underlying CAD. Based upon her clinical scenario and objective findings she is going to continue medical management and proceed with further evaluation care with PCI of the right posterolateral system which appears to be the culprit vessel. Objective: Vital Signs Temp Pulse Resp BP Pulse Ox 97.9 F 79 18 151/81 H 98 10/15/18 06:00 10/15/18 06:02 10/15/18 06:00 10/15/18 06:00 10/15/18 06:00 Oxygen Flow Rate (L/min) 2 Oxygen Delivery Method Room Air Weight: 253 lb 12.033 oz Body Mass Index (BMI) 43.5 Finger Stick Blood Glucose 162 Intake and Output for Last 24 Hours 10/13/18 10/14/18 10/15/18 23:59 23:59 23:59 Intake Total 1320 / 1320 50 / 50 Balance 1320 / 1320 50 / 50 General: Awake, Alert, Oriented x 3, Cooperative, No Acute Distress, Obese HEENT: Atraumatic, Normocephalic, PERRL, EOMI, Sclera Non Icteric Oral: Moist Mucosa Neck: Supple, Good ROM, No JVD Lungs: Clear to auscultation Cardiovascular: Regular Rhythm, Normal S1, Normal S2 Vascular: No Carotid Bruits Abdomen: Bowel Sounds Present, Soft, Non Tender Extremities: No edema Neurological: No Focal Motor or Sensory Deficit Psych/Mental Status: Appropriate 10/14/18 10:20: Troponin I 0.252 H 10/14/18 13:10: Troponin I 1.090 H* 10/14/18 18:50: Troponin I 4.320 H* 10/14/18 19:40: Urine Color Yellow, Urine Clarity Clear, Urine pH 6.0, Ur Specific [place] 1.010, Urine Protein Negative, Urine Glucose (UA) Normal, Urine Ketones Negative, Urine Occult Blood Negative, Urine Nitrite Negative, Urine Bilirubin Negative, Urine Urobilinogen Normal, Ur Leukocyte Esterase 25 H, Urine RBC 0 SEEN, Urine WBC 0-5 SEEN 10/15/18 04:33: Sodium 139, Potassium 4.1, Chloride 105, Carbon Dioxide 25.0, Anion Gap 9, BUN 14, Creatinine 0.94, Est GFR (MDRD) Af Amer 78, Est GFR (MDRD) Non-Af 65, BUN/Creatinine Ratio 14.9, Glucose 162 H, Calcium 9.2, Troponin I 1.880 H*, Triglycerides 235 H, Cholesterol 162, LDL Cholesterol 83, VLDL Cholesterol 47 H, HDL Cholesterol 32 L 10/15/18 04:33: WBC 10.4, RBC 4.86, Hgb 13.5, Hct 42.1, MCV 86.6, MCH 27.8, MCHC 32.1, RDW 14.9 H, RDW Differential 47.3 H, Plt Count 289, MPV 9.5, Immature Gran % (Auto) 0.600, Neut % (Auto) 58.0, Lymph % (Auto) 32.4, [place] % (Auto) 7.0, Eos % (Auto) 1.4, Baso % (Auto) 0.6, Absolute Neuts (auto) 6.0, Total Counted Not Reportable 10/15/18 04:33: PT 14.5, INR 1.2, APTT 31.3 Rhythm: Sinus rhythm EKG: Sinus rhythm; nonspecific T wave abnormality; consideration for myocardial ischemia-lateral ECHO: Interpretation Summary The study was technically difficult. Contrast injection was performed. Segmental dysfunction with preserved ejection fraction (see wall motion). The estimated ejection fraction is 55 %. The left atrium is mildly enlarged. Mild mitral valve prolapse. Trivial mitral valve insufficiency. Trivial tricuspid valve insufficiency. Mild focal aortic valve calcification. Right ventricular systolic pressure estimated to be 25 mmHg. Transmitral doppler flow suggestive of impaired relaxation of left ventricle Cardiac Cath: Left ventricle with mid inferior hypokinesis; estimated LVEF 55%; left main coronary artery patent; LAD with minimal luminal irregularities; LCx with mid 50-75% eccentric hazy appearing stenosis; RCA with right posterior lateral branch with an eccentric 85% appearing stenosis-large long branch/vessel Medical Necessity - Tobacco Use Smoking Status: Never smoker Assessment/Plan 1. Chest pain Her chest pain appeared to be somewhat pleuritic in nature. This may be secondary to an underlying respiratory tract related illness. She is also undergone evaluation with a d-dimer level which was negative. Thus she did not proceed with additional noninvasive studies such as chest CT scan for evidence of thromboembolic disease. Her chest discomfort appears to be atypical and not classic for underlying pericardial disease such as acute pericarditis. Her chest discomfort is also not classic for acute coronary syndrome. However, she is a female with diabetes mellitus. However, she is now status post diagnostic cardiac catheterization. She has been diagnosed with the development of CAD. She is going to proceed with further evaluation and care with medical management and PCI of her right posterior lateral system this appears to be the culprit vessel. 2. Non-ST segment elevation ID Her abnormal troponin I levels suggest a non-ST segment elevation ID. Her troponin I level has increased and subsequently decreased. Her ECG demonstrates nonspecific T wave changes with consideration to myocardial ischemia in the lateral distribution. Again she has been diagnosed with underlying CAD. She will proceed with medical therapy and PCI of her right posterior lateral system which appears to be the culprit vessel. 3. Non-CAD related cardiomyopathy She has a history of a non-CAD related cardiomyopathy which improved over time. At the present time, based upon her diagnostic cardiac catheterization procedure, her overall LV systolic function, despite hypokinesis of the mid inferior segment, appears to be preserved with an estimated LVEF 55%. He will continue medical management. 4. Hyperlipidemia She will continue lipid-lowering therapy as deemed appropriate. 5. Hypertension She will need to continue medical management with adjustment as deemed appropriate. 6. Diabetes mellitus She will continue under the care of internal medicine. The above was discussed with the patient. She was agreeable to this approach. This note was generated with [employer] software. It may contain incorrect words, spelling, and punctuation that were not noted in checking the note before signing.
--- NOTE | 2018-10-15 10:21 | CL.D_ITS ---
Patient Name: YUE IBRAHIM Study Date: 10/15/2018 Performing: James Miller MD Ht: 64.17 inches 163 cm : 1960 Wt: 253.53 lbs 115 kg Age: 58 Gender: female BSA: 2.17 PROCEDURE(S) PERFORMED HL69-WHR/COR/LV CLINICAL PROFILE AND INDICATIONS Indications: Suspected CAD Heart Failure: None Stress/Imaging Stress/Image Study Performed: No Angina Classification Anginal Classification w/in 2 Weeks: CCS IV CAD Presentations: Non-STEMI. CONCLUSIONS Normal Left Ventricular End Diastolic Pressure LV regional wall motion abnormalities with overall preserved LV systolic function LVEF: by LV gram 55 % [place] Multivessel CAD RECOMMENDATIONS Risk factor modification Medical therapy Referred for immediate PCI DESCRIPTION OF PROCEDURE The patient arrived to the procedure lab. The risks and benefits of the procedure as well as a full d escription of our services here and current unavailability of surgical backup were fully explained to the patient and/or their significant other prior to the catheterization. The Timeout was completed, verifying the correct patient and procedure. The patient's procedural site was prepped and draped in the usual fashion. Local anesthetic was given subcutaneously to right radial region with Lidocaine 2% . Using a modified Seldinger technique, arterial access was obtained via the right radial artery, a 6 Fr sheath was inserted. Left Coronary Artery selective angiography was performed in multiple views u sing a 5 Fr. 4.0 Sadler catheter. Right Coronary Artery selective angiography was then performed in mu ltiple views using a 5 Fr. 4.0 Sadler catheter. Left Ventriculography was performed in DIETRICH projection using a 5 Fr. Pigtail catheter. LV to AO pullback pressures were then recorded. CORONARY ANGIOGRAPHY DOMINANCE: Right Dominant LEFT HEART ASSESSMENT Left Ventricular Ejection Fraction: by LV Gram 55 % Inferior Mid Hypokinesis Normal Left Ventricular End Diastolic Pressure LVEDP: 4 mmHg LEFT MAIN: Angiographically normal LEFT ANTERIOR DECENDING ARTERY: Mild luminal irregularities DIAGONAL 1: Proximal - Mild luminal irregularities CIRCUMFLEX ARTERY: Mild luminal irregularities PROX CIRC: 10 - 25 % Stenosis MID CIRC: Eccentric: Hazy: 50 - 75 % Stenosis RIGHT CORONARY ARTERY: Mild luminal irregularities RT PLV: Eccentric: 85 % Stenosis (large long vessel) VALVE FINDINGS: Normal Aortic Valve function Normal Mitral Valve function AORTIC ROOT: Angiographically normal COMPLICATIONS PROCEDURE MEDICATIONS Fentanyl 50 mcg IV Versed 1 mg IV Oxygen: 2 L/min via nasal cannula Angiomax Bolus 17.3 ml's @ 10/15/2018 10:19:08 Heparin diluted in 23cc Heparinized saline. Patient given 10cc IA of this solution. 10/15/2018 09:32: 33 Verapamil 2.5mg, Ntg 100mcgs, 2000 units of Heparin diluted in 23cc Heparinized saline. Patient give n 10cc IA of this solution. 10/15/2018 09:32:33 SUMMARY OF HEMODYNAMIC DATA Time AIR REST ECG 09:11:38 AO 128/79 (98) SA 09:34:27 LV 137/-3, 3 09:43:49 LV 138/-3, 4 09:43:55 LV 137/-1, 8 09:45:19 LV 138/-3, 7 09:45:25 LVp 144/-4, 5 09:45:29 AOp 144/77 (104) 09:45:34 Signed By James Miller MD On 10/15/2018 10:20:22 James Miller MD
--- NOTE | 2018-10-15 10:49 | CL.I_ITS ---
Patient Name: YUE IBRAHIM Study Date: 10/15/2018 Performing: Phil Castellon MD Ht: 64.17 inches 163 cm : 1960 Wt: 253.53 lbs 115 kg Age: 58 Gender: female BSA: 2.17 PROCEDURE(S) PERFORMED [id number] W OR WO PTCA, SINGLE CORONARY ARTERY CLINICAL PROFILE AND CO-MORBIDITIES Indications: Suspected CAD Heart Failure: None Stress/Imaging Stress/Image Study Performed: No Angina Classification Anginal Classification w/in 2 Weeks: CCS IV CAD Presentations: Non-STEMI. CONCLUSIONS Successful 2.75 x 12 Resolute JULIA to the right PL RECOMMENDATIONS Highly recommend quitting all tobacco products Follow up with primary dimensional engineer Risk factor modification ASA Indefinitley Plavix for at least 12 months Routine post interventional care Refer for Outpatient Cardiac Rehab Manual sheath removal per protocol DESCRIPTION OF PROCEDURE The patient arrived to the procedure lab. The risks and benefits of the procedure as well as a full d escription of our services here and current unavailability of surgical backup were fully explained to the patient and/or their significant other prior to the catheterization. The Timeout was completed, verifying the correct patient and procedure. The patient's procedural site was prepped and draped in the usual fashion. Local anesthetic was given subcutaneously to right radial region with Lidocaine 2% Using a modified Seldinger technique,arterial access was obtained via the right radial artery, a 6Fr sheath was inserted. Left Coronary Artery selective angiography was performed in multiple views usin g a 5 Fr. 4.0 [place] catheter. Right Coronary Artery selective angiography was then performed in multi ple views using a 5 Fr. 4.0 [place] catheter. Left Ventriculography was performed in DIETRICH projection usi ng a 5 Fr. Pigtail catheter. LV to AO pullback pressures were then recorded.The images were reviewed and options discussed. A decision was then made to proceed with an Intervention, IVUS o r other adjunct procedure. HS 1 Guide catheter was inserted and engaged into the RCA. BMW Guide wire was advanced to the RCA . 2.75 X 12 RESOLUTE Drug Eluting stent was inserted. Drug Eluting stent was advanced across the lesi on in the RPL proximal The arterial sheath was pulled and a TR Band was applied for hemostasis 17c c air INTERVENTION INFORMATION LESION SITE: RPL (1st) Lesion Complexity: Non-High/Non-C, chronic total occlusion: No, lesion at bifurcation: No, thrombus p resent: Yes, lesion length: 10 mm, culprit lesion: Yes, In-stent restenosis: No Pre Stenosis: 80 % Pre intervention MARISOL flow: 3 PROCEDURE: Drug Eluting Stent to right PL branch Post Stenosis: 0 % Post intervention MARISOL flow: 3 Lesion Devices: Dumont .014 BMW [place] Straight 190cm Medtronic 6 Fr HS1 100cm Guide Catheter Amauri Sci EMERGE MR 3.00x12 BALLOON Medtronic Resolute RX JULIA 2.75x12 COMPLICATIONS No Complications PROCEDURE MEDICATIONS Fentanyl 50 mcg IV Versed 1 mg IV Fentanyl 25 mcg IV Oxygen: 2 L/min via nasal cannula Angiomax Bolus 17.3 ml's 10/15/2018 10:19:08 Angiomax 5mg / ml @ 40.3 ml/hr IV started @ 10/15/2018 10:21:01 Heparin diluted in 23cc Heparinized saline. Patient given 10cc IA of this solution. 10/15/2018 09:32: 33 Verapamil 2.5mg, Ntg 100mcgs, 2000 units of Heparin diluted in 23cc Heparinized saline. Patient give n 10cc IA of this solution. 10/15/2018 09:32:33 SUMMARY OF HEMODYNAMIC DATA Time AIR REST ECG 09:11:38 AO 128/79 (98) SA 09:34:27 LV 137/-3, 3 09:43:49 LV 138/-3, 4 09:43:55 LV 137/-1, 8 09:45:19 LV 138/-3, 7 09:45:25 LVp 144/-4, 5 09:45:29 AOp 144/77 (104) 09:45:34 RM AIR REST 10:46:25 Signed By Phil Castellon MD On 10/15/2018 10:49:00 Phil Castellon MD
--- NOTE | 2018-10-15 10:56 | PCM.PN.HOSP ---
Patient Problems: Active and Suspected Problems (Last Reviewed 07/21/18 @ 12:12 by Alda Eubanks) Chest pain, rule out acute myocardial infarction (Acute) NSTEMI (non-ST elevated myocardial infarction) (Acute) Diabetes mellitus (Acute) Subjective: Patient had cardiac cath. Was found single-vessel coronary artery. 85% stenosis of right PLV Vitals/I&O's: Vital Signs Temp Pulse Resp BP Pulse Ox 97.9 F 79 18 151/81 H 98 10/15/18 06:00 10/15/18 06:02 10/15/18 06:00 10/15/18 06:00 10/15/18 06:00 Oxygen Flow Rate (L/min) 2 Oxygen Delivery Method Room Air Weight: 253 lb 12.033 oz Body Mass Index (BMI) 43.5 Finger Stick Blood Glucose 162 Intake and Output for Last 24 Hours 10/13/18 10/14/18 10/15/18 23:59 23:59 23:59 Intake Total 1320 / 1320 50 / 50 Balance 1320 / 1320 50 / 50 General: Alert, Oriented x3, Cooperative HEENT: Atraumatic, PERRLA, EOMI, Normocephalic Neck: Supple, No JVD, Negative Carotid Bruits Lungs: Clear to auscultation, Normal air movement Cardiovascular: Regular rate, Regular Rhythm, Normal S1, Normal S2, No murmurs Abdomen: Bowel Sounds Present, Soft, Non Tender, Non-Distended Extremities: No edema, Capillary Refill Less than 3 Seconds, - - Right radial artery cardiac cath access site: No bruise/hematoma Skin: No rashes, No breakdown Musculoskeletal: No Tenderness to Palpation of Joints or Extremities Neurological: Cranial nerves II-XII grossly intact Psych/Mental Status: Normal Affect, Appropriate Microbiology Past 72 Hours 10/14/18 12:18 Mucosa - Nasopharyngeal Respiratory Panel (PCR) - Final 10/14/18 18:30 Mucosa - Oral Group A Streptococcus Rapid Screen - Preliminary Laboratory Results 10/14/18 11:39: POC Glucose 191 H 10/14/18 13:10: Troponin I 1.090 H* 10/14/18 16:30: POC Glucose 158 H 10/14/18 18:50: Troponin I 4.320 H* 10/14/18 19:40: Urine Color Yellow, Urine Clarity Clear, Urine pH 6.0, Ur Specific [place] 1.010, Urine Protein Negative, Urine Glucose (UA) Normal, Urine Ketones Negative, Urine Occult Blood Negative, Urine Nitrite Negative, Urine Bilirubin Negative, Urine Urobilinogen Normal, Ur Leukocyte Esterase 25 H, Urine RBC 0 SEEN, Urine WBC 0-5 SEEN, Ur Squamous Epith Cells 0-5 SEEN, Urine Bacteria 0 SEEN, Urine Mucus 0 SEEN 10/14/18 21:46: POC Glucose 173 H 10/15/18 04:33: Sodium 139, Potassium 4.1, Chloride 105, Carbon Dioxide 25.0, Anion Gap 9, BUN 14, Creatinine 0.94, Estim Creat Clear Calc 56.33, Est GFR (MDRD) Af Amer 78, Est GFR (MDRD) Non-Af 65, BUN/Creatinine Ratio 14.9, Glucose 162 H, Calcium 9.2, Troponin I 1.880 H*, Triglycerides 235 H, Cholesterol 162, LDL Cholesterol 83, VLDL Cholesterol 47 H, HDL Cholesterol 32 L, TSH 2.22, Free T4 1.25 10/15/18 04:33: WBC 10.4, RBC 4.86, Hgb 13.5, Hct 42.1, MCV 86.6, MCH 27.8, MCHC 32.1, RDW 14.9 H, RDW Differential 47.3 H, Plt Count 289, MPV 9.5, Immature Gran % (Auto) 0.600, Neut % (Auto) 58.0, Lymph % (Auto) 32.4, Maverick % (Auto) 7.0, Eos % (Auto) 1.4, Baso % (Auto) 0.6, Absolute Neuts (auto) 6.0, Absolute Lymphs (auto) 3.37, Total Counted Not Reportable 10/15/18 04:33: PT 14.5, INR 1.2, APTT 31.3 10/15/18 06:50: POC Glucose 159 H Current Medications Aspirin (Ecotrin) 81 mg PO DAILY@0800 [facility] Last Admin: 10/15/18 06:02 Dose: 81 mg Atorvastatin Calcium (Lipitor) 40 mg PO QHS [facility] Clopidogrel Bisulfate (Plavix) 75 mg PO DAILY [facility] Last Admin: 10/15/18 06:05 Dose: 75 mg Dextrose (D50w Syringe) 0 gm IV X1 PRN; Protocol PRN Reason: Hypoglycemia Enoxaparin Sodium (Lovenox) 40 mg SC DAILY [facility] Last Admin: 10/15/18 08:42 Dose: Not Given Famotidine (Pepcid) 20 mg PO BID [facility] Last Admin: 10/15/18 06:02 Dose: 20 mg Glucagon () 1 mg IM .X1 PRN PRN Reason: Hypoglycemia Sodium Chloride () 1,000 mls @ 15 mls/hr IV .Q48H [facility] Last Admin: 10/15/18 06:03 Dose: 15 mls/hr Insulin Human Lispro (Humalog Kwikpen (Bkc)) 0 unit SQ ACHS [facility]; Protocol Last Admin: 10/15/18 07:27 Dose: Not Given Levothyroxine Sodium (Synthroid) 50 mcg PO DAILY@0600 [facility] Last Admin: 10/15/18 06:02 Dose: 50 mcg Lisinopril (Zestril) 10 mg PO BID [facility] Metoprolol Tartrate (Lopressor (Beta Sarah)) 100 mg PO BID [facility] Nitroglycerin (Nitrostat) 0.4 mg SUBLINGUAL Q5M PRN PRN Reason: CHEST PAIN Sodium Chloride () 5 - 15 ml IV UD PRN PRN Reason: SALINE FLUSH Zolpidem Tartrate (Ambien (Generic)) 5 mg PO QHS PRN PRN PRN Reason: INSOMNIA Last Admin: 10/14/18 23:45 Dose: 5 mg Medical Necessity - Tobacco Use Smoking Status: Never smoker Assessment/Plan All Active Problems (Last Reviewed 07/21/18 @ 12:12 by Alda Eubanks) Chest pain, rule out acute myocardial infarction (Acute) NSTEMI (non-ST elevated myocardial infarction) (Acute) Diabetes mellitus (Acute) Bronchitis (Acute) History of cardiac radiofrequency ablation (Resolved ~04/07/17) Chest pain (Acute) The patient is a 58 year old F with past medical history as mentioned below including history of viral cardiomyopathy in 2006, SVT on metoprolol status post ablation came to ED with left-sided pleuritic chest pain started about 6 PM yesterday. Patient. More pain while on deep inspiration or coughing. She had sick contact with who had viral fever/sore throat and a small kid. She has cough , sore throat, postnasal drip for few days. Denies shortness of breath, palpitation, sweating or syncope. Chest pain that radiates from midsternal to posteriorly along left lateral wall. Twelve-lead EKG was done and reported as normal sinus rhythm at [address]-T changes similar to previous EKG of 15 October 2018. Chest x-ray does not show acute cardiopulmonary process. On basic blood work, glucose is elevated 212, first troponin negative. Second troponin slightly elevated 0.252. 1. NSTEMI single-vessel coronary artery disease status post JULIA, : Patient was being admitted in PCU. Patient had serial troponin enzymes which patient explains [facility]. 1.09, 4.32. Tag Machine Operator Dr. Miller was consulted on 10/14. Patient had cardiac catheter today. Coronary angiogram: Right dominant, EF 55%. Inferior mid hypokinesis. Proximal circumflex 10-25% stenosis. Mid circumflex eccentric 50-75% stenosis. Right posterolateral: 85% stenosis large long vessel. Right PLV was a stented. Patient subsequently transferred to ICU. On aspirin, Plavix, metoprolol, lisinopril and statin 2. History of viral cardiomyopathy: Patient had cardiomyopathy, being managed in [facility] in 2005. Last echo in September 2015 reported as EF 60% with mild impaired luxation of left ventricle. No wall motion abnormality. Normal right ventricle systolic function. No significant valvular abnormality. She had normal stress test in September 2015. Another echo from 09/2009 reported as EF 65% with all cardiac chambers reported normal in size. Shunt is on metoprolol and follows Dr. Miller. Fasting lipid profile LDL 83, HDL 32, TG 235. 3. History of SVT status post ablation: Heart rate is controlled. Continue metoprolol 4. Diabetes mellitus type 2 on metformin: Hold metformin. Accu-Chek before meals and at bedtime cover with NovoLog sliding scale. 5. Hypothyroidism: On levothyroxine 25 mcg daily. Continued. TSH and FT4 are normal. DVT prophylaxis: On Lovenox 40 mg sc daily Clinical Impression(s) from Imaging Studies Chest X-Ray 10/14/18 07:00 IMPRESSION: Degenerative changes, as described above. No demonstrated acute cardiopulmonary process. Microbiology Past 72 Hours 10/14/18 12:18 Mucosa - Nasopharyngeal Respiratory Panel (PCR) - Final 10/14/18 18:30 Mucosa - Oral Group A Streptococcus Rapid Screen - Preliminary Laboratory Results 10/14/18 16:30: POC Glucose 158 H 10/14/18 18:50: Troponin I 4.320 H* 10/14/18 19:40: Urine Color Yellow, Urine Clarity Clear, Urine pH 6.0, Ur Specific [place] 1.010, Urine Protein Negative, Urine Glucose (UA) Normal, Urine Ketones Negative, Urine Occult Blood Negative, Urine Nitrite Negative, Urine Bilirubin Negative, Urine Urobilinogen Normal, Ur Leukocyte Esterase 25 H, Urine RBC 0 SEEN, Urine WBC 0-5 SEEN, Ur Squamous Epith Cells 0-5 SEEN, Urine Bacteria 0 SEEN, Urine Mucus 0 SEEN 10/14/18 21:46: POC Glucose 173 H 10/15/18 04:33: Sodium 139, Potassium 4.1, Chloride 105, Carbon Dioxide 25.0, Anion Gap 9, BUN 14, Creatinine 0.94, Estim Creat Clear Calc 56.33, Est GFR (MDRD) Af Amer 78, Est GFR (MDRD) Non-Af 65, BUN/Creatinine Ratio 14.9, Glucose 162 H, Calcium 9.2, Troponin I 1.880 H*, Triglycerides 235 H, Cholesterol 162, LDL Cholesterol 83, VLDL Cholesterol 47 H, HDL Cholesterol 32 L, TSH 2.22, Free T4 1.25 10/15/18 04:33: WBC 10.4, RBC 4.86, Hgb 13.5, Hct 42.1, MCV 86.6, MCH 27.8, MCHC 32.1, RDW 14.9 H, RDW Differential 47.3 H, Plt Count 289, MPV 9.5, Immature Gran % (Auto) 0.600, Neut % (Auto) 58.0, Lymph % (Auto) 32.4, Maverick % (Auto) 7.0, Eos % (Auto) 1.4, Baso % (Auto) 0.6, Absolute Neuts (auto) 6.0, Absolute Lymphs (auto) 3.37, Total Counted Not Reportable 10/15/18 04:33: PT 14.5, INR 1.2, APTT 31.3 10/15/18 06:50: POC Glucose 159 H 10/15/18 11:47: POC Glucose 150 H Code Visit Inpatient E&M: 55638 Subs Hosp L2
--- NOTE | 2018-10-15 11:00 | NURSING ---
received from equipment operator/laborer , rt radial tr band dryy & intaqct with 17cc air, ekg completed, up to br with assist voided mod amt, family @ bedside
[2018-10-15 11:56] LABS: Bedside Glucose 150 mg/dL (70-110)
[2018-10-15] MEDS: 0.9% Normal Saline 1,000 ML 75 ML IV (12:00)
--- NOTE | 2018-10-15 12:21 | CASEMGMT ---
FIONA DESHPANDE assessment: Face to Face with patient for initial transition planning/care coordination assessment. FIONA DESHPANDE introduced self and role at [facility], pt voices understanding and consents to assessment at this time. Pt is sitting up in chair in no distress at this time. Pt is A/Ox4 at this time and answers all questions appropriately at this time. Care providers, pharmacy, and demographics verified/updated at this time. PCP: [facility] [place] Specialists: Paul cardio Preferred Pharmacy: [facility] Insurance: [facility] Prescription Benefit: [facility] Living Will/HPOA: Pt states does not have LW/HPOA and declines info at this time. LNOK: Mukul Ribera, ; Tamela Becker, daughter Living Arrangements: Pt states lives with in apt and states no concerns at home at this time. Pt states is independent with ADL's. Transportation: Pt states drives self and states no transportation concerns at this time. DME/HHC: Pt states has a cane and grab bars. Pt states no need for any further DME at this time. Pt states had HHC 'a long time ago' for knee replacement and states no hx of SNF in the past. Pt states no concerns with going home at time of discharge. Pt is disabled. Pt states does not smoke or drink ETOH. Pt states no further concerns/needs at this time. CM to follow for any further discharge planning/needs. Advised pt to ask for CM if any further questions/concerns/needs arise, voices understanding. Plan: [place] FIONA DESHPANDE
--- NOTE | 2018-10-15 15:00 | EKG12_ITS ---
Test Reason : AM Blood Pressure : / mmHG Vent. Rate : 063 BPM Atrial Rate : 063 BPM P-R Int : 136 ms QRS Dur : 088 ms QT Int : 434 ms P-R-T Axes : 020 -20 076 degrees QTc Int : 444 ms Normal sinus rhythm Low voltage QRS Nonspecific T wave abnormality Abnormal ECG Confirmed by BURT SANDERSON, BEBETO ([id number]), fashion editor MAIKEL JEFF ([id number]) on 10/25/2018 12:07:40 PM Referred By: NIGEL Confirmed By:BEBETO DALLAS MD
--- NOTE | 2018-10-15 15:32 | CRPHASE1 ---
Patient Communication PHII Cardiac Rehab Discussed with Patient:: Yes Guide to Cardiac Rehab Given to Patient:: Yes Cardiac Rehab Facility Choice List Given to Patient:: Yes Choice Program [facility] CR PHII:: Communication Given to CR - chooses [facility] Coke Oven Patcher:: James Miller Phase II Cardiac Rehab:: No - pending Sessions:: 36 sessions - 3 days/wk, 12 weeks Risk Factors/Lifestyle Smoking Status: Never smoker Hx Dyslipidemia: Yes Hx Obesity: Yes Height: 1.63 m Weight:: 114.759 kg BMI: 43.4 Family History: Family History (Last Reviewed 08/02/18 @ 13:05 by Lisa Rocha) Grandmother CVA (cerebral vascular accident) Mother CAD (coronary artery disease) A-fib Heart disease Father Heart disease Hypertension Cancer Sister Fibromyalgia Sister Myocardial infarction Diabetes CAD (coronary artery disease) Brother Myocardial infarction CAD (coronary artery disease) Diabetes Brother Cancer Asthma Aunt Colon cancer Uncle Colon cancer Diabetes Laboratory Values: Cardiac Rehab Phase I Labs Triglycerides 235 mg/dL (-199) H 10/15/18 04:33 Cholesterol 162 mg/dL (200) 10/15/18 04:33 LDL Cholesterol 83 mg/dL (0-130) 10/15/18 04:33 HDL Cholesterol 32 mg/dL (40-) L 10/15/18 04:33 Phase I Education Given On:: [place], Nutrition, Antiplatelet medication, CHF, Smoking cessation, Diabetes - Type I, Diabetes - Type II Issues Affecting Care:: None Knowledge of Condition:: Yes Hospital Course Cardiac Cath Date:: 10/15/18 Medical/Surgical History Hypertension:: Yes Dyslipidemia:: Yes Arrhythmias:: Yes PTCA:: Yes Discharge/Home/Social Eval Marital Status: Cardiac Rehabilitation Info Cardiac Rehabilitation Program Information: Cardiac Rehabilitation is important for patients like you who are recovering from a heart problem. Cardiac rehabilitation programs are recognized as integral to the continued care of the patient with coronary heart disease. The cardiac rehabilitation program is designed to optimize a patient's physical, psychological, and social functioning. Health care management associate work in cardiac rehabilitation programs and assist you with getting the treatments you need to get stronger and healthier - like exercise, healthy eating habits, and medications. Cardiac rehabilitation has been show to help people with heart problems live longer and have better life enjoyment than people who do not go to cardiac rehabilitation. Please contact the Cardiac Rehabilitation Program at [facility] at in two weeks if you have not heard from them.
--- NOTE | 2018-10-15 15:36 | CRPHASE1_ITS ---
Addendum entered and electronically signed by Sonny Alvarenga CRT, HIGH SCHOOL FOREIGN LANGUAGE TEACHER, BS 10/26/18 13:37: Patient was referred to CR Phase II Outpatient CR prior to discharge following her PCI intervention and coronary stent. She was scheduled for her evaluation today and is starting CR on 11/01/2018 Original Note: Patient Communication PHII Cardiac Rehab Discussed with Patient:: Yes Guide to Cardiac Rehab Given to Patient:: Yes Cardiac Rehab Facility Choice List Given to Patient:: Yes Choice Program [facility] CR PHII:: Communication Given to CR - chooses [facility] Food And Nutrition Supervisor:: James Miller Refer Phase II Cardiac Rehab:: No - pending Sessions:: 36 sessions - 3 days/wk, 12 weeks Risk Factors/Lifestyle Smoking Status: Never smoker Hx Dyslipidemia: Yes Hx Obesity: Yes Height: 1.63 m Weight:: 114.759 kg BMI: 43.4 Family History: Family History (Last Reviewed 08/02/18 @ 13:05 by Lisa Rocha) Grandmother CVA (cerebral vascular accident) Mother CAD (coronary artery disease) A-fib Heart disease Father Heart disease Hypertension Cancer Sister Fibromyalgia Sister Myocardial infarction Diabetes CAD (coronary artery disease) Brother Myocardial infarction CAD (coronary artery disease) Diabetes Brother Cancer Asthma Aunt Colon cancer Uncle Colon cancer Diabetes Laboratory Values: Cardiac Rehab Phase I Labs Triglycerides 235 mg/dL (-199) H 10/15/18 04:33 Cholesterol 162 mg/dL (200) 10/15/18 04:33 LDL Cholesterol 83 mg/dL (0-130) 10/15/18 04:33 HDL Cholesterol 32 mg/dL (40-) L 10/15/18 04:33 Phase I Education Given On:: [place], Nutrition, Antiplatelet medication, CHF, Smoking cessation, Diabetes - Type I, Diabetes - Type II Issues Affecting Care:: None Knowledge of Condition:: Yes Hospital Course Cardiac Cath Date:: 10/15/18 Medical/Surgical History Hypertension:: Yes Dyslipidemia:: Yes Arrhythmias:: Yes PTCA:: Yes Discharge/Home/Social Eval Marital Status: Cardiac Rehabilitation Info Cardiac Rehabilitation Program Information: Cardiac Rehabilitation is important for patients like you who are recovering from a heart problem. Cardiac rehabilitation programs are recognized as integral to the continued care of the patient with coronary heart disease. The cardiac rehabilitation program is designed to optimize a patient's physical, psychological, and social functioning. Health c are professionals work in cardiac rehabilitation programs and assist you with getting the treatments you need to get stronger and healthier - like exercise, healthy eating habits, and medications. Cardiac rehabilitation has been show to help people with heart problems live longer and have better life enjoyment than people who do not go to cardiac rehabilitation. Please contact the Cardiac Rehabilitation Program at [facility] at in two weeks if you have not heard from them.
--- NOTE | 2018-10-15 15:38 | CRPH1.INSTRU ---
General Education CAD and cardiac anatomy and function:: Patient communicates acknowledgment Explanation of diagnoses and procedures:: Patient communicates acknowledgment Sign/Symptoms of TN:: Patient communicates acknowledgment Antiplatelet therapy: Patient communicates acknowledgment Proper use of NTG-SL: Not instructed Emergency procedures and activation of EMS: Patient communicates acknowledgment Compliance of all prescribed medications: Patient communicates acknowledgment Smoking Nicotine/Smoking Response Code:: Patient communicates acknowledgment Dyslipidemia Dyslipidemia Response Code:: Patient communicates acknowledgment Overweight/Obesity Patient Overweight/Obesity Risk Factors Are:: Obesity - > or = 30 Recommendations Include:: Weight loss of 5-10%, Reduced calorie diet, Exercise 5-7 times/week Overweight/Obesity:: Patient communicates acknowledgment Hypertension Recommendations Include:: Maintain BP <130/85, BP <130/80 if diabetic, DASH dietary guidelines, Decrease/maintain normal body weight, Moderation of ETOH Hypertension:: Patient communicates acknowledgment Heart Disease Patient Heart Disease Risk Factors Are:: Family history of heart disease < 65 years old Heart Disease Response Code:: Patient communicates acknowledgment Diabetes Diabetes:: Patient communicates acknowledgment Metabolic Syndrome Metabolic Syndrome Response Code:: Patient communicates acknowledgment Sedentary Sedentary Response Code:: Patient communicates acknowledgment Stress Stress Response Code:: Patient communicates acknowledgment
[2018-10-15 17:20] LABS: Bedside Glucose 177 mg/dL (70-110)
[2018-10-15] MEDS: Insulin Lispro 100 UNIT/ML INSULN.PEN SQ ×2 (17:32→21:31)
[2018-10-15] MEDS: Metoprolol Tartrate 100 MG Tablet PO (21:31)
[2018-10-15] MEDS: Atorvastatin Calcium 40 MG Tablet PO (21:31)
[2018-10-15] MEDS: Lisinopril 10 MG Tablet PO (21:32)
[2018-10-15 21:45] LABS: Bedside Glucose 172 mg/dL (70-110)
[2018-10-15] MEDS: Zolpidem Tartrate 5 MG Tablet PO (22:43)
[2018-10-16] VITALS (14 sets, daily range): BP systolic 100–128; BP diastolic 53–112; PULSE 59–86; RESP 13–20; TEMP 36.7–36.8; O2SAT 94–98
[2018-10-16 05:37] LABS: Hematocrit 39.4 % (37-47); Hemoglobin 12.7 g/dl (12.0-15.0); Mean Corp Hgb Conc 32.2 g/gl (32-36); Mean Corpuscular Hgb 27.5 pg (27.0-32.0); Mean Corpuscular Volume 85.5 fL (81-99); Mean Platelet Vol. 9.5 fl (6.2-12.0); Platelet Count 250 K/mm3 (150-450); RBC Distribution Width CV 15.2 % (11.6-14.6); RBC Distribution Width SD 47.2 fl (35.1-43.9); Red Blood Count 4.61 M/mm3 (4.2-5.4); White Blood Count 9.2 K/mm3 (4.4-11.0)
[2018-10-16 05:40] LABS: Scan Indicated on CBC? Y/N NO
[2018-10-16 05:50] LABS: Anion Gap 8 (5-15); BUN 13 mg/dL (7-18); BUN/Creat Ratio 14.9 RATIO (10-20); Calcium,Total 8.7 mg/dL (8.5-10.1); Chloride 106 mmol/L (98-107); Creatinine, Serum 0.87 mg/dL (0.55-1.02); EST Glomerular Filtration Rate 71 mL/min (>60); Est Glom Filt Rate - Afr Amer 85 mL/min (>60); Estimated Creatinine Clearance 60.87 ml/min; Glucose 159 mg/dL (74-106); Potassium 4.3 mmol/L (3.5-5.1); Sodium Level 140 mmol/L (136-145)
--- NOTE | 2018-10-16 05:55 | EKG12_ITS ---
Test Reason : POST STENT Blood Pressure : / mmHG Vent. Rate : 071 BPM Atrial Rate : 071 BPM P-R Int : 144 ms QRS Dur : 084 ms QT Int : 390 ms P-R-T Axes : 031 -24 062 degrees QTc Int : 423 ms Normal sinus rhythm Low voltage QRS Nonspecific T wave abnormality Abnormal ECG Confirmed by BURT SANDERSON, BEBETO ([id number]), staff editor MAIKEL JEFF ([id number]) on 10/25/2018 12:12:36 PM Referred By: SOCRATES Confirmed By:BEBETO DALLAS MD
[2018-10-16] MEDS: Levothyroxine 50 MCG Tablet PO (06:30)
[2018-10-16 08:05] LABS: Bedside Glucose 193 mg/dL (70-110)
[2018-10-16] MEDS: Aspirin E.C. 81 MG Tablet PO (08:23)
[2018-10-16] MEDS: Insulin Lispro 100 UNIT/ML INSULN.PEN SQ ×2 (08:24→11:27)
--- NOTE | 2018-10-16 08:39 | DCINST_ITS ---
- Discharge Diagnoses Current Active Problems: Current Active and Chronic Problems (Last Updated 10/15/18 @ 18:29 by June Man) Atherosclerotic heart disease of [place] coronary artery without angina pectoris (Chronic) Successful 2.75 x 12 Resolute JULIA to the right PL per Dr. Castellon @ [facility] Stented coronary artery (Chronic 10/15/18) Successful 2.75 x 12 Resolute JULIA to the right PL per Dr. Castellon @ [facility] History of left heart catheterization (Chronic 10/15/18) Per PFM @ [facility] Obstructive sleep apnea (Chronic) Chest pain, rule out acute myocardial infarction (Acute) NSTEMI (non-ST elevated myocardial infarction) (Acute) Cardiomyopathy (Chronic) Diabetes mellitus (Acute) Essential hypertension (Chronic) HLD (hyperlipidemia) (Chronic) You will use the following diet at home:: Calorie/Carbohydrate Controlled (specify 1200, 1400, etc) - 1800 ADA diet Your food should be the consistency of: Regular Discharge Activity: May Not Drive Call your doctor if you observe: Fever of 101 or Higher, Inability to have a bowel movement, Shortness of breath, Swelling in the ankles, Chest pain, Increased palpitations (irregular heartbeat) Allergies/Adverse Reactions: Allergies clindamycin Allergy (Verified 10/14/18 06:37) Hives erythromycin base Allergy (Verified 10/14/18 06:37) Hives nitrofurantoin macrocrystalline [From Macrodantin] Allergy (Verified 10/14/18 06:37) Hives Sulfa (Sulfonamide Antibiotics) Allergy (Verified 10/14/18 06:37) Hives sulfamethoxazole [From Septra] Allergy (Verified 10/14/18 06:37) Hives trimethoprim [From Septra] Allergy (Verified 10/14/18 06:37) Hives Medications to take at Discharge Aspirin [Aspirin, Baby] 81 mg PO DAILY@0800 09/11/15 Ranitidine [Zantac] 150 mg PO BID 09/11/15 Zolpidem Tartrate [Ambien] 10 mg PO QHS PRN PRN 07/09/17 coenzyme Q10 100 mg capsule 100 mg PO DAILY 08/02/18 levothyroxine 25 mcg tablet 50 mcg PO DAILY 08/02/18 Atorvastatin Calcium [Lipitor] 40 mg PO QHS #30 tablet 10/16/18 Clopidogrel Bisulfate [Plavix] 75 mg PO DAILY #30 tablet 10/16/18 Metformin HCl [Glucophage] 1,000 mg PO BID #0 tab 10/16/18 Metoprolol Tartrate [Lopressor (beta yeyo)] 100 mg PO BID #270 tab 10/16/18 Nitroglycerin [Nitrostat] 0.4 mg SUBLINGUAL Q5M PRN #30 tablet 10/16/18 The following prescriptions were given: Atorvastatin Calcium [Lipitor] 40 mg PO QHS #30 tablet Clopidogrel Bisulfate [Plavix] 75 mg PO DAILY #30 tablet Nitroglycerin [Nitrostat] 0.4 mg SUBLINGUAL Q5M PRN #30 tablet PRN Reason: Chest Pain Orders to be completed after discharge: Phase II, Outpatient Cardiac Rehab Location: None Selected Primary Care Physician: [facility] Doctor,Out of [NON-STAFF] - Please follow up with your Primary Care Physician in: in 2 weeks Test Results: Test results from this visit will be discussed in further detail at your follow- up appointment, if applicable. Please Follow Up With: James Miller MD When: as scheduled. Cardiac rehab
--- NOTE | 2018-10-16 08:39 | DS.PCM_ITS ---
Discharge Date and Diagnosis Date of Admission: 10/14/18 Date of Discharge: 10/16/18 - Primary Discharge Diagnosis Active and Suspected Problems (Last Updated 10/15/18 @ 18:29 by June Man) Chest pain, rule out acute myocardial infarction (Acute) NSTEMI (non-ST elevated myocardial infarction) (Acute) Diabetes mellitus (Acute) - Secondary Discharge Diagnosis Chronic Problems (Last Updated 10/15/18 @ 18:29 by June Man) Atherosclerotic heart disease of [place] coronary artery without angina pectoris (Chronic) Successful 2.75 x 12 Resolute JULIA to the right PL per Dr. Castellon @ [facility] Stented coronary artery (Chronic 10/15/18) Successful 2.75 x 12 Resolute JULIA to the right PL per Dr. Castellon @ [facility] History of left heart catheterization (Chronic 10/15/18) Per PFM @ [facility] Obstructive sleep apnea (Chronic) Cardiomyopathy (Chronic) Essential hypertension (Chronic) Endometrial hyperplasia without atypia, simple (Chronic) HLD (hyperlipidemia) (Chronic) Supraventricular tachycardia (Chronic) S/P ablation @ [facility] 04/07/2017; Hospital Course and Treatment Summary of Care Provided: T The patient is a 58 year old F with past medical history as mentioned below including history of viral cardiomyopathy in 2006, SVT on metoprolol status post ablation came to ED with left-sided pleuritic chest pain started about 6 PM yesterday. Patient. More pain while on deep inspiration or coughing. She had sick contact with who had viral fever/sore throat and a small kid. She has cough , sore throat, postnasal drip for few days. Denies shortness of breath, palpitation, sweating or syncope. Chest pain that radiates from midsternal to posteriorly along left lateral wall. Twelve-lead EKG was done and reported as normal sinus rhythm at [address]-T changes similar to previous EKG of 15 October 2018. Chest x-ray does not show acute cardiopulmonary process. On basic blood work, glucose is elevated 212, first troponin negative. Second troponin slightly elevated 0.252. 1. NSTEMI single-vessel coronary artery disease status post JULIA, : Patient was being admitted in PCU. Patient had serial troponin enzymes which subsequently got high; 1.09, 4.32. [employer] Driver Dr. Moodispaw was consulted on 10/14. Patient had cardiac catheter on 10/15. Coronary angiogram: Right dominant, EF 55%. Inferior mid hypokinesis. Proximal circumflex 10-25% stenosis. Mid circumflex eccentric 50-75% stenosis. Right posterolateral: 85% stenosis large long vessel. Right PLV was a stented. Patient subsequently transferred to ICU. On aspirin, Plavix, metoprolol, lisinopril and atorvastatin. Prescriptions of Plavix, lisinopril, atorvastatin and nitro sublingual and statin. 2. History of viral cardiomyopathy/nonischemic: Patient had cardiomyopathy, being managed in [facility] in 2005. Last echo in September 2015 reported as EF 60% with mild impaired luxation of left ventricle. No wall motion abnormality. Normal right ventricle systolic function. No significant valvular abnormality. She had normal stress test in September 2015. Another echo from 09/2009 reported as EF 65% with all cardiac chambers reported normal in size. Patient metoprolol was increased 200 mg twice daily fasting lipid profile LDL 83, HDL 32, TG 235. Echo on 10/14/2018 reported as EF 55% with segmental wall dysfunction. Impaired relaxation of left ventricle. Normal RV size systolic function. Mild mitral valve prolapse. RVSP 25 Hg. Trivial TR. echo is suggestive of chronic heart failure with preserved EF 3. History of SVT status post ablation: Heart rate is controlled. Continue metoprolol 4. Diabetes mellitus type 2 on metformin: Hold metformin. Accu-Chek before meals and at bedtime cover with NovoLog sliding scale. 5. Hypothyroidism: On levothyroxine 25 mcg daily. Continued. TSH and FT4 are normal. DVT prophylaxis: On Lovenox 40 mg sc daily Clinical Impression(s) from Imaging Studies Chest X-Ray 10/14/18 07:00 IMPRESSION: Degenerative changes, as described above. No demonstrated acute cardiopulmonary process. Subjective: Seen and examined. Patient does not had chest pain or significant arrhythmia on monitor. Right wrist: No hematoma or bruise. - Physical Exam General: Alert, Oriented x3, Cooperative HEENT: Atraumatic, PERRLA, EOMI, Normocephalic Neck: Supple, No JVD, Negative Carotid Bruits Lungs: Clear to auscultation, Normal air movement Cardiovascular: Regular rate, Regular Rhythm, Normal S1, Normal S2, No murmurs Abdomen: Bowel Sounds Present, Soft, Non Tender, Non-Distended Extremities: No edema, Capillary Refill Less than 3 Seconds Skin: No rashes, No breakdown Musculoskeletal: No Tenderness to Palpation of Joints or Extremities, Arthritic Changes - Bilateral knee arthritis Lymphatic: No Cervical, Supraclavicular, or Inguinal Adenopathy Neurological: Cranial nerves II-XII grossly intact, Deep Tendon Reflexes 2+/4 and Symmetrical, Neuro grossly intact Psych/Mental Status: Normal Affect, Appropriate Vital Signs Temp Pulse Resp BP Pulse Ox 98.1 F 78 18 104/64 96 10/16/18 08:00 10/16/18 08:00 10/16/18 08:00 10/16/18 08:00 10/16/18 08:00 Oxygen Flow Rate (L/min) 2 Oxygen Delivery Method Room Air Weight: 253 lb Body Mass Index (BMI) 43.5 Finger Stick Blood Glucose 162 Intake and Output for Last 24 Hours 10/14/18 10/15/18 10/16/18 23:59 23:59 23:59 Intake Total 1320 / 1320 1090 / 1090 100 / 100 Balance 1320 / 1320 1090 / 1090 100 / 100 Microbiology Past 72 Hours 10/14/18 12:18 Respiratory Panel (PCR) - Final Mucosa - Nasopharyngeal 10/14/18 18:30 Group A Streptococcus Rapid Screen - Preliminary Mucosa - Oral Laboratory Tests Past 24 Hrs 10/16/18 10/16/18 04:20 04:20 WBC 9.2 RBC 4.61 Hgb 12.7 Hct 39.4 MCV 85.5 MCH 27.5 MCHC 32.2 RDW 15.2 H RDW Differential 47.2 H Plt Count 250 MPV 9.5 Sodium 140 Potassium 4.3 Chloride 106 Carbon Dioxide 26.0 Anion Gap 8 BUN 13 Creatinine 0.87 Estim Creat Clear Calc 60.87 Est GFR (MDRD) Af Amer 85 Est GFR (MDRD) Non-Af 71 BUN/Creatinine Ratio 14.9 Glucose 159 H Calcium 8.7 POC Glucose 10/16/18 10/15/18 10/15/18 07:59 21:27 17:15 POC Glucose 193 H 172 H 177 H 10/15/18 11:47 POC Glucose 150 H Discharge Activity: May Not Drive Call your doctor if you observe: Fever of 101 or Higher, Inability to have a bowel movement, Shortness of breath, Swelling in the ankles, Chest pain, Increased palpitations (irregular heartbeat) Home Medications: Medications to take at Discharge Aspirin [Aspirin, Baby] 81 mg PO DAILY@0800 09/11/15 Ranitidine [Zantac] 150 mg PO BID 09/11/15 Zolpidem Tartrate [Ambien] 10 mg PO QHS PRN PRN 07/09/17 coenzyme Q10 100 mg capsule 100 mg PO DAILY 08/02/18 levothyroxine 25 mcg tablet 50 mcg PO DAILY 08/02/18 Atorvastatin Calcium [Lipitor] 40 mg PO QHS #30 tablet 10/16/18 Clopidogrel Bisulfate [Plavix] 75 mg PO DAILY #30 tablet 10/16/18 Lisinopril [Zestril] 10 mg PO BID #60 tablet 10/16/18 Metformin HCl [Glucophage] 1,000 mg PO BID #0 tab 10/16/18 Metoprolol Tartrate [Lopressor (beta sarah)] 100 mg PO BID #270 tab 10/16/18 Nitroglycerin [Nitrostat] 0.4 mg SUBLINGUAL Q5M PRN #30 tablet 10/16/18 Following Prescrptions Were Given to Patient: Atorvastatin Calcium [Lipitor] 40 mg PO QHS #30 tablet Clopidogrel Bisulfate [Plavix] 75 mg PO DAILY #30 tablet Nitroglycerin [Nitrostat] 0.4 mg SUBLINGUAL Q5M PRN #30 tablet PRN Reason: Chest Pain Lisinopril [Zestril] 10 mg PO BID #60 tablet Other Amb Orders: Phase II, Outpatient Cardiac Rehab Location: None Selected Primary Care Physician: [facility] Doctor,Out of [NON-STAFF] - Please follow up with your Primary Care Physician in: in 2 weeks Please Follow Up With: James Miller MD When: as scheduled. Cardiac rehab Medical Necessity - Tobacco Use Smoking Status: Never smoker Meaningful Use Info Meaningful Use Diagnoses (Choose all that apply): AMI - AMI Aspirin given w/in 24hrs of arrival?: Yes ASA at discharge?: Yes Statins at discharge?: Yes Jay/ARB at discharge?: Yes Beta Sarah at discharge?: Yes Done w/ Acute [place] measure.: Yes Code Visit Inpatient E&M: 61714 Disch Hosp
--- NOTE | 2018-10-16 09:39 | PCM.DC.SUM ---
Discharge Date and Diagnosis Date of Admission: 10/14/18 Date of Discharge: 10/16/18 - Primary Discharge Diagnosis Active and Suspected Problems (Last Updated 10/15/18 @ 18:29 by June Man) Chest pain, rule out acute myocardial infarction (Acute) NSTEMI (non-ST elevated myocardial infarction) (Acute) Diabetes mellitus (Acute) - Secondary Discharge Diagnosis Chronic Problems (Last Updated 10/15/18 @ 18:29 by June Man) Atherosclerotic heart disease of [place] coronary artery without angina pectoris (Chronic) Successful 2.75 x 12 Resolute JULIA to the right PL per Dr. Castellon @ [facility] Stented coronary artery (Chronic 10/15/18) Successful 2.75 x 12 Resolute JULIA to the right PL per Dr. Castellon @ [facility] History of left heart catheterization (Chronic 10/15/18) Per PFM @ [facility] Obstructive sleep apnea (Chronic) Cardiomyopathy (Chronic) Essential hypertension (Chronic) Endometrial hyperplasia without atypia, simple (Chronic) HLD (hyperlipidemia) (Chronic) Supraventricular tachycardia (Chronic) S/P ablation @ [facility] 04/07/2017; Hospital Course and Treatment Summary of Care Provided: T The patient is a 58 year old F with past medical history as mentioned below including history of viral cardiomyopathy in 2006, SVT on metoprolol status post ablation came to ED with left-sided pleuritic chest pain started about 6 PM yesterday. Patient. More pain while on deep inspiration or coughing. She had sick contact with who had viral fever/sore throat and a small kid. She has cough , sore throat, postnasal drip for few days. Denies shortness of breath, palpitation, sweating or syncope. Chest pain that radiates from midsternal to posteriorly along left lateral wall. Twelve-lead EKG was done and reported as normal sinus rhythm at [address]-T changes similar to previous EKG of 15 October 2018. Chest x-ray does not show acute cardiopulmonary process. On basic blood work, glucose is elevated 212, first troponin negative. Second troponin slightly elevated 0.252. 1. NSTEMI single-vessel coronary artery disease status post JULIA, : Patient was being admitted in PCU. Patient had serial troponin enzymes which subsequently got high; 1.09, 4.32. [employer] Lathe Tender Dr. Moodispaw was consulted on 10/14. Patient had cardiac catheter on 10/15. Coronary angiogram: Right dominant, EF 55%. Inferior mid hypokinesis. Proximal circumflex 10-25% stenosis. Mid circumflex eccentric 50-75% stenosis. Right posterolateral: 85% stenosis large long vessel. Right PLV was a stented. Patient subsequently transferred to ICU. On aspirin, Plavix, metoprolol, lisinopril and atorvastatin. Prescriptions of Plavix, lisinopril, atorvastatin and nitro sublingual and statin. 2. History of viral cardiomyopathy/nonischemic: Patient had cardiomyopathy, being managed in [facility] in 2005. Last echo in September 2015 reported as EF 60% with mild impaired luxation of left ventricle. No wall motion abnormality. Normal right ventricle systolic function. No significant valvular abnormality. She had normal stress test in September 2015. Another echo from 09/2009 reported as EF 65% with all cardiac chambers reported normal in size. Patient metoprolol was increased 200 mg twice daily fasting lipid profile LDL 83, HDL 32, TG 235. Echo on 10/14/2018 reported as EF 55% with segmental wall dysfunction. Impaired relaxation of left ventricle. Normal RV size systolic function. Mild mitral valve prolapse. RVSP 25 Hg. Trivial TR. echo is suggestive of chronic heart failure with preserved EF 3. History of SVT status post ablation: Heart rate is controlled. Continue metoprolol 4. Diabetes mellitus type 2 on metformin: Hold metformin. Accu-Chek before meals and at bedtime cover with NovoLog sliding scale. 5. Hypothyroidism: On levothyroxine 25 mcg daily. Continued. TSH and FT4 are normal. DVT prophylaxis: On Lovenox 40 mg sc daily Clinical Impression(s) from Imaging Studies Chest X-Ray 10/14/18 07:00 IMPRESSION: Degenerative changes, as described above. No demonstrated acute cardiopulmonary process. Subjective: Seen and examined. Patient does not had chest pain or significant arrhythmia on monitor. Right wrist: No hematoma or bruise. - Physical Exam General: Alert, Oriented x3, Cooperative HEENT: Atraumatic, PERRLA, EOMI, Normocephalic Neck: Supple, No JVD, Negative Carotid Bruits Lungs: Clear to auscultation, Normal air movement Cardiovascular: Regular rate, Regular Rhythm, Normal S1, Normal S2, No murmurs Abdomen: Bowel Sounds Present, Soft, Non Tender, Non-Distended Extremities: No edema, Capillary Refill Less than 3 Seconds Skin: No rashes, No breakdown Musculoskeletal: No Tenderness to Palpation of Joints or Extremities, Arthritic Changes - Bilateral knee arthritis Lymphatic: No Cervical, Supraclavicular, or Inguinal Adenopathy Neurological: Cranial nerves II-XII grossly intact, Deep Tendon Reflexes 2+/4 and Symmetrical, Neuro grossly intact Psych/Mental Status: Normal Affect, Appropriate Vital Signs Temp Pulse Resp BP Pulse Ox 98.1 F 78 18 104/64 96 10/16/18 08:00 10/16/18 08:00 10/16/18 08:00 10/16/18 08:00 10/16/18 08:00 Oxygen Flow Rate (L/min) 2 Oxygen Delivery Method Room Air Weight: 253 lb Body Mass Index (BMI) 43.5 Finger Stick Blood Glucose 162 Intake and Output for Last 24 Hours 10/14/18 10/15/18 10/16/18 23:59 23:59 23:59 Intake Total 1320 / 1320 1090 / 1090 100 / 100 Balance 1320 / 1320 1090 / 1090 100 / 100 Microbiology Past 72 Hours 10/14/18 12:18 Respiratory Panel (PCR) - Final Mucosa - Nasopharyngeal 10/14/18 18:30 Group A Streptococcus Rapid Screen - Preliminary Mucosa - Oral Laboratory Tests Past 24 Hrs 10/16/18 10/16/18 04:20 04:20 WBC 9.2 RBC 4.61 Hgb 12.7 Hct 39.4 MCV 85.5 MCH 27.5 MCHC 32.2 RDW 15.2 H RDW Differential 47.2 H Plt Count 250 MPV 9.5 Sodium 140 Potassium 4.3 Chloride 106 Carbon Dioxide 26.0 Anion Gap 8 BUN 13 Creatinine 0.87 Estim Creat Clear Calc 60.87 Est GFR (MDRD) Af Amer 85 Est GFR (MDRD) Non-Af 71 BUN/Creatinine Ratio 14.9 Glucose 159 H Calcium 8.7 POC Glucose 10/16/18 10/15/18 10/15/18 07:59 21:27 17:15 POC Glucose 193 H 172 H 177 H 10/15/18 11:47 POC Glucose 150 H Discharge Activity: May Not Drive Call your doctor if you observe: Fever of 101 or Higher, Inability to have a bowel movement, Shortness of breath, Swelling in the ankles, Chest pain, Increased palpitations (irregular heartbeat) Home Medications: Medications to take at Discharge Aspirin [Aspirin, Baby] 81 mg PO DAILY@0800 09/11/15 Ranitidine [Zantac] 150 mg PO BID 09/11/15 Zolpidem Tartrate [Ambien] 10 mg PO QHS PRN PRN 07/09/17 coenzyme Q10 100 mg capsule 100 mg PO DAILY 08/02/18 levothyroxine 25 mcg tablet 50 mcg PO DAILY 08/02/18 Atorvastatin Calcium [Lipitor] 40 mg PO QHS #30 tablet 10/16/18 Clopidogrel Bisulfate [Plavix] 75 mg PO DAILY #30 tablet 10/16/18 Lisinopril [Zestril] 10 mg PO BID #60 tablet 10/16/18 Metformin HCl [Glucophage] 1,000 mg PO BID #0 tab 10/16/18 Metoprolol Tartrate [Lopressor (beta sarah)] 100 mg PO BID #270 tab 10/16/18 Nitroglycerin [Nitrostat] 0.4 mg SUBLINGUAL Q5M PRN #30 tablet 10/16/18 Following Prescrptions Were Given to Patient: Atorvastatin Calcium [Lipitor] 40 mg PO QHS #30 tablet Clopidogrel Bisulfate [Plavix] 75 mg PO DAILY #30 tablet Nitroglycerin [Nitrostat] 0.4 mg SUBLINGUAL Q5M PRN #30 tablet PRN Reason: Chest Pain Lisinopril [Zestril] 10 mg PO BID #60 tablet Other Amb Orders: Phase II, Outpatient Cardiac Rehab Location: None Selected Primary Care Physician: [facility] Doctor,Out of [NON-STAFF] - Please follow up with your Primary Care Physician in: in 2 weeks Please Follow Up With: James Miller MD When: as scheduled. Cardiac rehab Medical Necessity - Tobacco Use Smoking Status: Never smoker Meaningful Use Info Meaningful Use Diagnoses (Choose all that apply): AMI - AMI Aspirin given w/in 24hrs of arrival?: Yes ASA at discharge?: Yes Statins at discharge?: Yes Jay/ARB at discharge?: Yes Beta Sarah at discharge?: Yes Done w/ Acute [place] measure.: Yes Code Visit Inpatient E&M: 21553 Disch Hosp
[2018-10-16] MEDS: Metoprolol Tartrate 100 MG Tablet PO (10:15)
[2018-10-16] MEDS: Clopidogrel Bisulfate 75 MG Tablet PO (10:16)
[2018-10-16] MEDS: Famotidine 20 MG Tablet PO (10:16)
[2018-10-16] MEDS: Lisinopril 10 MG Tablet PO (10:32)
--- NOTE | 2018-10-16 11:23 | PCM.PN.CARD ---
Subjectve: The patient is awake and alert. She claims to have no ongoing chest discomfort. Her respiratory status appears to be stable. She has had no post cardiac catheterization adverse events. Objective: Vital Signs Temp Pulse Resp BP Pulse Ox 98.1 F 86 18 116/67 98 10/16/18 08:00 10/16/18 10:15 10/16/18 10:00 10/16/18 10:15 10/16/18 10:00 Oxygen Flow Rate (L/min) 2 Oxygen Delivery Method Room Air Weight: 253 lb Body Mass Index (BMI) 43.5 Finger Stick Blood Glucose 162 Intake and Output for Last 24 Hours 10/14/18 10/15/18 10/16/18 23:59 23:59 23:59 Intake Total 1320 / 1320 1090 / 1090 100 / 100 Balance 1320 / 1320 1090 / 1090 100 / 100 General: Awake, Alert, Oriented x 3, Cooperative, No Acute Distress, Obese HEENT: Atraumatic, Normocephalic, PERRL, EOMI, Sclera Non Icteric Oral: Moist Mucosa Neck: Supple, Good ROM, No JVD Lungs: Clear to auscultation Cardiovascular: Regular Rhythm, Normal S1, Normal S2 Vascular: Normal Radial Pulses Abdomen: Bowel Sounds Present, Soft, Non Tender Extremities: No edema Neurological: No Focal Motor or Sensory Deficit Psych/Mental Status: Appropriate 10/16/18 04:20: WBC 9.2, RBC 4.61, Hgb 12.7, Hct 39.4, MCV 85.5, MCH 27.5, MCHC 32.2, RDW 15.2 H, RDW Differential 47.2 H, Plt Count 250, MPV 9.5 10/16/18 04:20: Sodium 140, Potassium 4.3, Chloride 106, Carbon Dioxide 26.0, Anion Gap 8, BUN 13, Creatinine 0.87, Est GFR (MDRD) Af Amer 85, Est GFR (MDRD) Non-Af 71, BUN/Creatinine Ratio 14.9, Glucose 159 H, Calcium 8.7 Rhythm: Sinus rhythm EKG: Sinus rhythm; leftward axis; nonspecific ST/T wave abnormality-inferolateral; no acute ECG changes compared to the previous ECG Medical Necessity - Tobacco Use Smoking Status: Never smoker Assessment/Plan 1. Chest pain Her chest pain appeared to be somewhat pleuritic in nature. This may be secondary to an underlying respiratory tract related illness. She is also undergone evaluation with a d-dimer level which was negative. Thus she did not proceed with additional noninvasive studies such as chest CT scan for evidence of thromboembolic disease. Her chest discomfort appears to be atypical and not classic for underlying pericardial disease such as acute pericarditis. Her chest discomfort is also not classic for acute coronary syndrome. However, she is a female with diabetes mellitus. However, she is now status post diagnostic cardiac catheterization. She has been diagnosed with the development of CAD. She is now status post right posterior lateral branch PCI/JULIA. She will continue medical management. She will have outpatient cardiovascular follow-up and outpatient cardiac rehabilitation. 2. Non-ST segment elevation MN Her abnormal troponin I levels suggest a non-ST segment elevation MN. Her troponin I level has increased and subsequently decreased. Her ECG demonstrates nonspecific T wave changes with consideration to myocardial ischemia in the lateral distribution. Again she has been diagnosed with underlying CAD. Again she is now status post right posterior lateral branch PCI/JULIA. She will continue medical management and follow-up. She will continue cardiac rehabilitation. 3. Non-CAD related cardiomyopathy She has a history of a non-CAD related cardiomyopathy which improved over time. At the present time, based upon her diagnostic cardiac catheterization procedure, her overall LV systolic function, despite hypokinesis of the mid inferior segment, appears to be preserved with an estimated LVEF 55%. He will continue medical management. 4. Hyperlipidemia She will continue lipid-lowering therapy as deemed appropriate. 5. Hypertension She will need to continue medical management with adjustment as deemed appropriate. 6. Diabetes mellitus She will continue under the care of internal medicine. The above was discussed with the patient. She was agreeable to this approach. This note was generated with [employer] software. It may contain incorrect words, spelling, and punctuation that were not noted in checking the note before signing.
--- NOTE | 2018-10-16 11:26 | PN.CARD_ITS ---
Subjectve: The patient is awake and alert. She claims to have no ongoing chest discomfort. Her respiratory status appears to be stable. She has had no post cardiac catheterization adverse events. Objective: Vital Signs Temp Pulse Resp BP Pulse Ox 98.1 F 86 18 116/67 98 10/16/18 08:00 10/16/18 10:15 10/16/18 10:00 10/16/18 10:15 10/16/18 10:00 Oxygen Flow Rate (L/min) 2 Oxygen Delivery Method Room Air Weight: 253 lb Body Mass Index (BMI) 43.5 Finger Stick Blood Glucose 162 Intake and Output for Last 24 Hours 10/14/18 10/15/18 10/16/18 23:59 23:59 23:59 Intake Total 1320 / 1320 1090 / 1090 100 / 100 Balance 1320 / 1320 1090 / 1090 100 / 100 General: Awake, Alert, Oriented x 3, Cooperative, No Acute Distress, Obese HEENT: Atraumatic, Normocephalic, PERRL, EOMI, Sclera Non Icteric Oral: Moist Mucosa Neck: Supple, Good ROM, No JVD Lungs: Clear to auscultation Cardiovascular: Regular Rhythm, Normal S1, Normal S2 Vascular: Normal Radial Pulses Abdomen: Bowel Sounds Present, Soft, Non Tender Extremities: No edema Neurological: No Focal Motor or Sensory Deficit Psych/Mental Status: Appropriate 10/16/18 04:20: WBC 9.2, RBC 4.61, Hgb 12.7, Hct 39.4, MCV 85.5, MCH 27.5, MCHC 32.2, RDW 15.2 H, RDW Differential 47.2 H, Plt Count 250, MPV 9.5 10/16/18 04:20: Sodium 140, Potassium 4.3, Chloride 106, Carbon Dioxide 26.0, Anion Gap 8, BUN 13, Creatinine 0.87, Est GFR (MDRD) Af Amer 85, Est GFR (MDRD) Non-Af 71, BUN/Creatinine Ratio 14.9, Glucose 159 H, Calcium 8.7 Rhythm: Sinus rhythm EKG: Sinus rhythm; leftward axis; nonspecific ST/T wave abnormality- inferolateral; no acute ECG changes compared to the previous ECG Medical Necessity - Tobacco Use Smoking Status: Never smoker Assessment/Plan 1. Chest pain Her chest pain appeared to be somewhat pleuritic in nature. This may be secondary to an underlying respiratory tract related illness. She is also undergone evaluation with a d-dimer level which was negative. Thus she did not proceed with additional noninvasive studies such as chest CT scan for evidence of thromboembolic disease. Her chest discomfort appears to be atypical and not classic for underlying pericardial disease such as acute pericarditis. Her chest discomfort is also not classic for acute coronary syndrome. However, she is a female with diabetes mellitus. However, she is now status post diagnostic cardiac catheterization. She has been diagnosed with the development of CAD. She is now status post right posterior lateral branch PCI/JULIA. She will continue medical management. She will have outpatient cardiovascular follow-up and outpatient cardiac rehabilitation. 2. Non-ST segment elevation PA Her abnormal troponin I levels suggest a non-ST segment elevation PA. Her troponin I level has increased and subsequently decreased. Her ECG demonstrates nonspecific T wave changes with consideration to myocardial ischemia in the lateral distribution. Again she has been diagnosed with underlying CAD. Again she is now status post right posterior lateral branch PCI/JULIA. She will continue medical management and follow-up. [facility] 3. Non-CAD related cardiomyopathy She has a history of a non-CAD related cardiomyopathy which improved over time. At the present time, based upon her diagnostic cardiac catheterization proc edure, her overall LV systolic function, despite hypokinesis of the mid inferior segment, appears to be preserved with an estimated LVEF 55%. He will continue medical management. 4. Hyperlipidemia She will continue lipid-lowering therapy as deemed appropriate. 5. Hypertension She will need to continue medical management with adjustment as deemed appropriate. 6. Diabetes mellitus She will continue under the care of internal medicine. The above was discussed with the patient. She was agreeable to this approach. This note was generated with [employer] software. It may contain incorrect words, spelling, and punctuation that were not noted in checking the note before signing.
[2018-10-16 11:31] LABS: Bedside Glucose 265 mg/dL (70-110)
--- NOTE | 2018-10-19 16:28 | CASEMGMT ---
FIONA DESHPANDE DC PHONE CALL DC DATE: 09/3018 DC Disposition: Home LACE/STRATA: 04/21 Intro role of CM to patient. Pt states she has f/u with PCP and cardiology. Reviewed medications. Pt states she has been feeling more tired. FIONA DESHPANDE reviewed other symptoms. Pt states she does not have chest pain, fever, nausea vomiting. FIONA DESHPANDE let her know to discuss with her physicians on f/up but if other symptoms occur to notify her physican. No other questions. Pt states her care was good and no care improvement suggestions were given. Rica LIN RN ACM
== END 2018-10-16 12:45 | disposition home or self-care (01) | DRG 247 ==
LOC: ED 09:14 → PCU 09:42 → ICU 10-15 13:35 → PCU 10-15 15:30 → ICU 10-16 12:53
PROVIDERS: Internal Medicine Cardiovascular Disease; Admitting Provider Internal Medicine; Emergency Provider Emergency Medicine; Family Provider Family Medicine; PCP Family Medicine; Visit Provider Internal Medicine
DX: I21.4 Non-ST elevation (NSTEMI) myocardial infarction (principal); I42.9 Cardiomyopathy, unspecified; E11.9 Type 2 diabetes mellitus without complications; E03.9 Hypothyroidism, unspecified; I25.10 Atherosclerotic heart disease of native coronary artery without angina pectoris; G47.33 Obstructive sleep apnea (adult) (pediatric); E78.5 Hyperlipidemia, unspecified; Z79.84 Long term (current) use of oral hypoglycemic drugs; I10 Essential (primary) hypertension
CPT/HCPCS: 36415; 71046; 80048; 80061; 81001; 82962; 84439; 84443; 84484; 85025; 85027; 85379; 85610; 85730; 87633; 87880; 92928; 93005; 93306; 93458; 99152; 99153; 99285; J7030; Q9957; A4216; C1769; C1874; C1887; C1894; C8929; C9600; J0583; Q9967

== ENCOUNTER → 2018-10-26 11:42 | Outpatient (CLI) | payer MEDICARE, SELFPAY ==
[2018-10-14 10:26] VITALS: BMI 43.5
[2018-10-15 15:37] VITALS: BMI 43.4
--- NOTE | 2018-10-26 12:36 | PCM.CR.HP2 ---
CR - History & Physical - General Arrival date:: 10/26/18 Arrival time:: 11:45 Date of Referral:: 10/15/18 Date of CR Evaluation:: 10/26/18 Primary Diagnosis: DR. DALLAS - History of Present Cardiac Event Onset Date: Enter Onset Date of cardiac illnesses in Comment field below Current stable Angina Pectoris:: No Acute Myocardial Infarction within 12 months:: Yes Coronary Artery Bypass Graft:: No Heart valve replacement or repair:: No PTCA or coronary stenting:: Yes Heart or Heart-Lung Transplant:: No Heart Failure EF <35%:: No Type of Symptoms:: PAIN LT SIDE, RIBS - Medications Home Medications: Ambulatory Orders Medication Instructions Recorded Aspirin [Aspirin, Baby] 81 mg PO DAILY@0800 09/11/15 Ranitidine [Zantac] 150 mg PO BID 09/11/15 Zolpidem Tartrate [Ambien] 10 mg PO QHS PRN PRN 07/09/17 coenzyme Q10 100 mg capsule 100 mg PO DAILY 08/02/18 levothyroxine 25 mcg tablet 50 mcg PO DAILY 08/02/18 Atorvastatin Calcium [Lipitor] 40 mg PO QHS #30 tab 10/16/18 Clopidogrel Bisulfate [Plavix] 75 mg PO DAILY #30 tab 10/16/18 Lisinopril [Zestril] 10 mg PO BID #60 tab 10/16/18 Metformin HCl [Glucophage] 1,000 mg PO BID #0 tab 10/16/18 Metoprolol Tartrate [Lopressor 100 mg PO BID #270 tab 10/16/18 (beta yeyo)] Nitroglycerin [Nitrostat] 0.4 mg SUBLINGUAL Q5M PRN #30 tab 10/16/18 diphenhydramine 25 mg tablet 25 mg PO QHS PRN 10/19/18 methylprednisolone 4 mg tablets in See Rx Instructions PO PER PKG DIR 10/19/18 a dose pack #21 tab - Allergies Allergies/Adverse Reactions: Allergies clindamycin Allergy (Verified 10/14/18 06:37) Hives erythromycin base Allergy (Verified 10/14/18 06:37) Hives nitrofurantoin macrocrystalline [From Macrodantin] Allergy (Verified 10/14/18 06:37) Hives Sulfa (Sulfonamide Antibiotics) Allergy (Verified 10/14/18 06:37) Hives sulfamethoxazole [From Marra] Allergy (Verified 10/14/18 06:37) Hives trimethoprim [From Marra] Allergy (Verified 10/14/18 06:37) Hives - Sleep Disorder Evaluation Hx of Sleep Apnea: Yes Do you snore loudly (louder than talking or can be heard through closed doors)?: Yes Do you often feel tired/ fatigued/ sleepy during daytime?: Yes Has anyone observed you stop breathing during sleep?: No History of Hypertension (for STOP score): No STOP Results: Positive Advanced Directives - Advanced Directives 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 Castellon @ [facility] Obstructive sleep apnea (Chronic) G47.33 Chest pain, rule out acute myocardial infarction (Acute) R07.9 NSTEMI (non-ST elevated myocardial infarction) (Acute) I21.4 Cardiomyopathy (Chronic) I42.9 Diabetes mellitus (Acute) E11.9 Essential hypertension (Chronic) I10 HLD (hyperlipidemia) (Chronic) E78.5 Supraventricular tachycardia (Chronic) I47.1 S/P ablation @ [facility] 04/07/2017; GERD (gastroesophageal reflux disease) K21.9 Hypothyroidism E03.9 HUSSEIN (obstructive sleep apnea) G47.33 HTN (hypertension) (Inactive) I10 - Past Surgical History Surgical History: Past Surgical History (Last Updated 10/15/18 @ 18:29 by June Man) Stented coronary artery (Chronic) Onset Date: 10/15/18 Z95.5 Successful 2.75 x 12 Resolute JULIA to the right PL per Dr. Castellon @ [facility] History of left heart catheterization (Chronic) Onset Date: 10/15/18 Z98.890 Per PFM @ [facility] History of cardiac radiofrequency ablation (Resolved) Onset Date: ~04/07/17 Z98.890 S/P ablation @ [facility] 04/07/2017; H/O prior ablation treatment Onset Date: 04/07/17 Z98.890 EP study and RF Catheter ablation at [facility] History of Z98.891 History of total right knee replacement (TKR) Onset Date: ~06/2014 Z96.651 History of hysterectomy Z90.710 Surgical History: hysterectomy, - - today total hysterectomy with BL salpingo-oopherectomy - Family History Summary Family History: Family History (Last Reviewed 08/02/18 @ 13:05 by Lisa Rocha) Grandmother CVA (cerebral vascular accident) Mother CAD (coronary artery disease) A-fib Heart disease Father Heart disease Hypertension Cancer Lung CA Sister Fibromyalgia Sister Myocardial infarction Diabetes CAD (coronary artery disease) Brother Myocardial infarction CAD (coronary artery disease) Diabetes Brother Cancer Asthma Aunt Colon cancer Uncle Colon cancer Diabetes Social History - Smoking History Smoking Status: Never smoker - Alcohol Use Alcohol Usage: No - Substance Abuse Hx Substance Use: No - Occupation Occupation (List type of work in comments):: Unemployed - DISABILITY - Hobbies, Recreation, Social Activities Hobbies: None Recreational Activities: I can hardly do any recreational activities Social Environment - Status Marital Status: - Current Living Arrangements Living Environment:: Spouse - Children How many children do you have?: 1 Do any of your children live nearby?: Yes - Safety Do you feel safe in your surroundings?: Yes - Assistance Do you need any assistance at home?: NONE, BUT STATES ORTHO DR SUGGESTED CANE USE DURING WINTER MONTHS Review of Systems - Review of Systems Hints: Right click = Denies (Slash). Left click = Reports (Castaner) Review of Present Symptoms: Reports: Shortness of Breath at Rest - PT BELIEVES ITS DUE TO CARDIOMYOPATHY, Shortness of Breath with Exertion, Fatigue, Appetite - Normal, Sleep - Normal - INSOMNIA, TAKES ZOFRAN, Sexual Changes. Denies: PVD, Operative Discomfort, Angina, Wound Healing, Heart Arrhythmia/Irregularities, Appetite - Special Diet - Pain Is Patient Pain Free?: Yes Pain Location: back - LT SIDE BACK Risk Factor Assessment - Vital Signs Temperature: 98.6 F Respiratory Rate: 20 Pulse Ox: 97 Blood Pressure: 102/70 Nailbeds:: PINK - Pulse Pulse Rate: 63 Pulse Rhythm: Regular - Hypertension Blood Pressure Sitting - Left Arm: 102/70 - Stress Stress: Recent, Long-standing, Home/Family - Blood Cholesterol/Lipids Total Cholesterol (mg/dL) Goal = less than 200 mg/dL: 162 HDL Cholesterol (mg/dL) Goal = less than 40 mg/dL: 32 LDL Cholesterol (mg/dL) Goal = less than 70 mg/dL: 83 Triglycerides (mg/dL) Goal = less than 150 mg/dL: 235 - Diabetes Diabetic History: Type II, Medication Dependent Nutrition Referral for Diabetes: Yes - Obesity Height: 5 ft 3 in Weight:: 259 lb Weight in Pounds: 259.0 lbs Weight Source: Estimated by Patient Body Mass Index (BMI): 45.8 Nutritional Referral for Obesity: Yes - BMI 45.8 - Physical Inactivity Physical Inactivity: None - Risk Stratification Risk Guidelines: Lowest Risk: Risk Factor for Smoking, Risk Factor for Hypertension, Highest Risk: Risk Factor for Dyslipidemia, Risk Factor for Diabetes, Risk Factor for Obesity, Risk Factor for Sedentary Lifestyle, Risk Factor for Depression - For Smoking Smoking Risk Guidelines: Smoking Low Risk: None or quit greater than 6 months ago. Smoking Moderate Risk: Smoker or quit 6 months or less ago. Smoking High Risk: Smoker - For Dyslipidemia Dyslipidemia Risk Guidelines: Low Risk: Moderate Risk: High Risk: 15-25% fat 25.1-29% fat >/= 30% fat. <7% sat fat 7-9% sat fat >9% sat fat. <150 mg chol 150-299 mg chol >/= 300 mg chol. LDL <100 LDL 100-129 LDL >/= 130. Chol/HDL ratio <5.0 Chol/HDL ratio 5.0-6.0 Chol/HDL ratio >6.0. Triglycerides <100 Triglycerides 100-149 Triglycerides >/= 150 - For Diabetes Mellitus Diabetes Risk Guidelines: Diabetes Low Risk: HgA1c <6.5% and/or FBG <120. Diabetes Moderate Risk: HgA1c 6.6-7.9% and/or FBG 120-180. Diabetes High Risk: HgA1c >/= 8% and/or FBG >180 - For Obesity/Overweight Obesity/Overweight Risk Guidelines: Obesity Low Risk: BMI <25.0. Obesity Moderate Risk: BMI 25-29.9. Obesity High Risk: BMI >/= 30.0 - For Hypertension Hypertension Risk Guidelines: Hypertension Low Risk: Systolic <120 and Diastolic <80. Hypertension Moderate Risk: Systolic 120-139 and Diastolic 80-89. Hypertension High Risk: Systolic >/= 140 and Diastolic >/= 90 - For Sedentary Lifestyle Sedentary Lifestyle Risk Guidelines: Sedentary Lifestyle Low Risk: >/= 1,500 kcal/week. Sedentary Lifestyle Moderate Risk: 700-1,499 kcal/week. Sedentary Lifestyle High Risk: < 700 kcal/week - For Depression Depression Risk Guidelines: Depression Low Risk: Not clinically depressed. Depression Moderate Risk: Mildly depressed. Depression High Risk: Clinically depressed - Family History Family History: Family History (Last Reviewed 08/02/18 @ 13:05 by Lisa Rocha) Grandmother CVA (cerebral vascular accident) Mother CAD (coronary artery disease) A-fib Heart disease Father Heart disease Hypertension Cancer Sister Fibromyalgia Sister Myocardial infarction Diabetes CAD (coronary artery disease) Brother Myocardial infarction CAD (coronary artery disease) Diabetes Brother Cancer Asthma Aunt Colon cancer Uncle Colon cancer Diabetes Motivation - Motivation to Participate On a scale of 1 to 10, how prepared are you to commit to attending program?: 10 What do you see as barriers to successfully being able to complete the program?: INSURANCE, CO-PAY What do you see as the benefits of succesfully completing the program? In other words, what do you hope to get out of participating in the program?: GETTING OFF OF SOME OF THE MEDICATIONS. Are there issues you are dealing with that will interfere with completing the program?: NONE Do you have a spouse or signficant other, family or friends who will help support you to complete the program?: SPOUSE
--- NOTE | 2018-10-26 12:40 | CR.ITP_ITS ---
General Information - Education/Goals Individual Counseling: Initial Assessment: Overweight/Obesity, Diabetes, Low HDL <40/Males or <50/Females, Sedentary Lifestyle, Stress, Family History of Heart Disease (under 65 years) Cardiac Rehabilitation Goals: 1. Maintain the individual as the primary focus of care. 2. To improve the patient's quality of life. 3. Identification of cardiac risk factors and provide cardiac risk factor management. 4. Enhance the psychosocial status of the patient. 5. Reconditioning enough to allow the patient to resume customary activities. 6. Control symptoms of cardiac disease Scale for measuring improvement of personal goals: Enter appropriate number in Comments. 2 = Unchanged. 3 = Slightly Better. 4 = Moderate Improvement. 5 = Met my Goal Exercise - Initial Assessment - Visit Date of Eval: 10/26/18 - Stages of Change Stages of Change:: Action - Physician Prescribed Exercise Modalities: Treadmill, Biodyne, Rower, Airdyne, NuStep, SciFit Frequency (days/week): 3x/week for 12 weeks [36 sessions] Target Heart Rate:: 105-137 - Hypertension Do any of the following apply?: Yes Resting Blood Pressure:: 102/70 - Intervention Home Exercise/Activity Goal:: Sitting Time <3 hrs/day - Education Goals:: Warm-up, RPE ELAINE Scale, S/S, Safe Exercise, Self-Monitoring - Exercise Program Goals Exercise Program Goals: Aerobic Activity >30 min Nutrition - Initial Assessment - Program Goals Nutrition Program Goals: LDL <70. Total Cholesterol <200. HDL >45. Triglycerides <150. HgbA1C <7%. BMI <25 - Visit Date of Assessment:: 10/26/18 - Stages of Change Stages of Change:: Action - Lipids Total Cholesterol (mg/dL) Goal = less than 200 mg/dL: 162 HDL Cholesterol (mg/dL) Goal = less than 45 mg/dL: 32 LDL Cholesterol (mg/dL) Goal = less than 70 mg/dL: 83 Triglycerides (mg/dL) Goal = less than 150 mg/dL: 235 - Diabetes Diabetes:: Yes Hgb A1C: 7.0 Insulin: No Do you monitor your blood sugar at home?: No - TRYING TO WORK ON GETTING TEST STRIPS - Weight Management Height: 5 ft 3 in Weight:: 259 lb - Intervention Referral to Diabetic Clinic:: Yes - PT WILL BE CONTACTED INDIVIDUALLY - Education Gave educational materials for:: Signs & symptoms of hypoglycemia Tobacco - Initial Assessment - Program Goals Tobacco Program Goals: Complete smoking cessation. Attend education classes. Improve Knowledge Test score - Stage of Change Stages of Change:: Action - Family Support Do you have family support?: Yes - - Tobacco Use Tobacco Use: Non-smoker - Intervention Smoking Cessation Referral:: No - Education Gave educational material for:: Tobacco triggers, Coronary artery disease, Risk factors, Sexuality, Medical compliance, Cardiac A&P, Angina signs & symptoms Psychosocial - Initial Assess - Target Goals Target Goals: Assess presence or absence of depression. Using a valid screening tool, maximizes coping skills. Positive support system - Stages of Change Stages of Change:: Action - Psychosocial Test Tool Used:: HANDS Depression Questionnaire - Intervention PS - Interventions: Yes Referral to Physician - DIAB CLINIC - Education Gave educational materials for:: Coping techniques, Signs & symptoms of depression, Stress management, Relaxation techniques - Patient/Program Goal Preventative Medication(s):: Aspirin, CLAUDIA inhibitor, Clopidogrel, Beta yeyo, Statin/lipid - Assistive Devices Assistive Devices:: None Fall Risk Assessed:: No Patient Health Questionnaire Initial Assessment 1. Little interest or pleasure in doing things: Several days 2. Feeling down, depressed, or hopeless: Several days 3. Trouble falling or staying asleep, or sleeping too much: Nearly every day 4. Feeling tired or having little energy: Nearly every day 5. Poor appetite or overeating: Nearly every day 6. Feeling bad about yourself -- or that you are a failure or have let yourself or your family down: More than half the days 7. Trouble concentrating on things, such as reading the newspaper or watching television: Nearly every day 8. Moving or speaking so slowly that other people could have noticed. Or the opposite - being so fidgety or restless that you have been moving around a lot more than usual: Not at all 9. Thoughts that you would be better off , or of hurting yourself in some way: Not at all How difficult have these problems made it for you to do your work, take care of things at home, or get along with other people?: Not difficult at all Total Score: 16 AIDE-Q SV Test - Statements CAD is a disease of the arteries in the heart: False Examples of risk factors for heart disease: True Angina is chest pain or discomfort: True The benefits of resistance training include: True Eating more meat and dairy products: False Anti-platelet medications such as aspirin are important: True The only effective way to manage stress: True An exercise warm-up slowly increases heart rate: True Prepared, processed foods usually have high sodium: True Depression is common after a heart attack: False The statin medications lower cholesterol: True To control blood pressure, lower the amount of sodium: True If someone gets chest discomfort during walking: False Transfats are partially hydrogenated vegetable oils: False Sleep apnea that is not treated increases the risk: I Don't Know To control cholesterol, one should become a vegetarian: False Someone knows if he/she is exercising at the right level: True Diabetes cannot be prevented with exercise & health eating: True Self-Efficacy Initial Assessment We would like to know how confident you are in doing certain activities. Please select your confidence level for:: Select your confidence level for the following using the scale 1-10 where 1 is not at all confident and 10 is totally confident. Your score is the average of all 6 responses. Fatigue: How confident are you that you can keep the fatigue caused by your disease from interfering with the things you want to do? Select Number: 6 Physical Discomfort or Pain: How confident are you that you can keep the physical discomfort or pain of your disease from interfering with the things you want to do? Select Number: 6 Emotional Distress: How confident are you that you can keep the emotional distress caused by your disease from interfering with the things you want to do? Select Number: 6 Other Symptoms or Health Problems: How confident are you that you can keep other symptoms or health problems from interfering with the things you want to do? Select Number: 6 Different Tasks and Activities: How confident are you that you can do the d ifferent tasks and activities needed to manage your health condition so as to reduce your need to see a doctor? Select Number: 6 Medication: How confident are you that you can do things other than just taking medication to reduce how much your illness affects your everyday life? Select Number: 6 Total Score:: 6 Nutrition Survey - Nutrition Survey Instructions Scoring Instructions: Scoring is as follows: Yes = 1 points. No = 0 point. Patient score that is >/=12 is considered to be at potential nutritional risk and could benefit from a referral to a registered dietitian. - Nutrition Survey Initial Are you following a special diet at home for diabetes, low fat, or low salt?: No Are you interested in meeting with a dietitian for help understanding your di et?: Yes Do you eat less than 3 meals a day?: No Do you eat fatty meats (carrillo, sausage, ribs, etc), fried foods, desserts, large amounts of salad dressings, margarine, butter, or cheese most days?: No Do you have food allergies? [Enter types in comment field]: No Do you eat in restaurants more than 3 times a week?: No Do you season food with salt, seasoning salt, or garlic salt?: Yes Do you used canned, boxed, frozen meals, or soups, seasoning packets?: Yes
--- NOTE | 2018-10-26 12:41 | CR.HP_ITS ---
CR - History & Physical - General Arrival date:: 10/26/18 Arrival time:: 11:45 Date of Referral:: 10/15/18 Date of CR Evaluation:: 10/26/18 Primary Diagnosis: DR. DALLAS - History of Present Cardiac Event Onset Date: Enter Onset Date of cardiac illnesses in Comment field below Current stable Angina Pectoris:: No Acute Myocardial Infarction within 12 months:: Yes Coronary Artery Bypass Graft:: No Heart valve replacement or repair:: No PTCA or coronary stenting:: Yes Heart or Heart-Lung Transplant:: No Heart Failure EF <35%:: No Type of Symptoms:: PAIN LT SIDE, RIBS - Medications Home Medications: Ambulatory Orders Medication Instructions Recorded Aspirin [Aspirin, Baby] 81 mg PO DAILY@0800 09/11/15 Ranitidine [Zantac] 150 mg PO BID 09/11/15 Zolpidem Tartrate [Ambien] 10 mg PO QHS PRN PRN 07/09/17 coenzyme Q10 100 mg capsule 100 mg PO DAILY 08/02/18 levothyroxine 25 mcg tablet 50 mcg PO DAILY 08/02/18 Atorvastatin Calcium [Lipitor] 40 mg PO QHS #30 tab 10/16/18 Clopidogrel Bisulfate [Plavix] 75 mg PO DAILY #30 tab 10/16/18 Lisinopril [Zestril] 10 mg PO BID #60 tab 10/16/18 Metformin HCl [Glucophage] 1,000 mg PO BID #0 tab 10/16/18 Metoprolol Tartrate [Lopressor 100 mg PO BID #270 tab 10/16/18 (beta yeyo)] Nitroglycerin [Nitrostat] 0.4 mg SUBLINGUAL Q5M PRN #30 tab 10/16/18 diphenhydramine 25 mg tablet 25 mg PO QHS PRN 10/19/18 methylprednisolone 4 mg tablets in See Rx Instructions PO PER PKG DIR 10/19/18 a dose pack #21 tab - Allergies Allergies/Adverse Reactions: Allergies clindamycin Allergy (Verified 10/14/18 06:37) Hives erythromycin base Allergy (Verified 10/14/18 06:37) Hives nitrofurantoin macrocrystalline [From Macrodantin] Allergy (Verified 10/14/18 06:37) Hives Sulfa (Sulfonamide Antibiotics) Allergy (Verified 10/14/18 06:37) Hives sulfamethoxazole [From Marra] Allergy (Verified 10/14/18 06:37) Hives trimethoprim [From Marra] Allergy (Verified 10/14/18 06:37) Hives - Sleep Disorder Evaluation Hx of Sleep Apnea: Yes Do you snore loudly (louder than talking or can be heard through closed doors)?: Yes Do you often feel tired/ fatigued/ sleepy during daytime?: Yes Has anyone observed you stop breathing during sleep?: No History of Hypertension (for STOP score): No STOP Results: Positive Advanced Directives - Advanced Directives Power of Matcher Operator: No Living Will: No Advance Directives on File: No DNR Order?:: No Past Medical History - Past Medical Illness Medical History: Past Medical History (Last Updated 10/15/18 @ 18:29 by June Man) Atherosclerotic heart disease of [place] coronary artery without angina pectoris (Chronic) I25.10 Successful 2.75 x 12 Resolute JULIA to the right PL per Dr. Castellon @ [facility] Obstructive sleep apnea (Chronic) G47.33 Chest pain, rule out acute myocardial infarction (Acute) R07.9 NSTEMI (non-ST elevated myocardial infarction) (Acute) I21.4 Cardiomyopathy (Chronic) I42.9 Diabetes mellitus (Acute) E11.9 Essential hypertension (Chronic) I10 HLD (hyperlipidemia) (Chronic) E78.5 Supraventricular tachycardia (Chronic) I47.1 S/P ablation @ [facility] 04/07/2017; GERD (gastroesophageal reflux disease) K21.9 Hypothyroidism E03.9 HUSSEIN (obstructive sleep apnea) G47.33 HTN (hypertension) (Inactive) I10 - Past Surgical History Surgical History: Past Surgical History (Last Updated 10/15/18 @ 18:29 by June Man) Stented coronary artery (Chronic) Onset Date: 10/15/18 Z95.5 Successful 2.75 x 12 Resolute JULIA to the right PL per Dr. Castellon @ [facility] History of left heart catheterization (Chronic) Onset Date: 10/15/18 Z98.890 Per PFM @ [facility] History of cardiac radiofrequency ablation (Resolved) Onset Date: ~04/07/17 Z98.890 S/P ablation @ [facility] 04/07/2017; H/O prior ablation treatment Onset Date: 04/07/17 Z98.890 EP study and RF Catheter ablation at [facility] History of Z98.891 History of total right knee replacement (TKR) Onset Date: ~06/2014 Z96.651 History of hysterectomy Z90.710 Surgical History: hysterectomy, - - today total hysterectomy with BL salpingo-oopherectomy - Family History Summary Family History: Family History (Last Reviewed 08/02/18 @ 13:05 by Lisa Rocha) Grandmother CVA (cerebral vascular accident) Mother CAD (coronary artery disease) A-fib Heart disease Father Heart disease Hypertension Cancer Lung CA Sister Fibromyalgia Sister Myocardial infarction Diabetes CAD (coronary artery disease) Brother Myocardial infarction CAD (coronary artery disease) Diabetes Brother Cancer Asthma Aunt Colon cancer Uncle Colon cancer Diabetes Social History - Smoking History Smoking Status: Never smoker - Alcohol Use Alcohol Usage: No - Substance Abuse Hx Substance Use: No - Occupation Occupation (List type of work in comments):: Unemployed - DISABILITY - Hobbies, Recreation, Social Activities Hobbies: None Recreational Activities: I can hardly do any recreational activities Social Environment - Status Marital Status: - Current Living Arrangements Living Environment:: Spouse - Children How many children do you have?: 1 Do any of your children live nearby?: Yes - Safety Do you feel safe in your surroundings?: Yes - Assistance Do you need any assistance at home?: NONE, BUT STATES ORTHO DR ABELINO Villafana SE DURING WINTER MONTHS Review of Systems - Review of Systems Hints: Right click = Denies (Slash). Left click = Reports ([place]) Review of Present Symptoms: Reports: Shortness of Breath at Rest - PT BELIEVES ITS DUE TO CARDIOMYOPATHY, Shortness of Breath with Exertion, Fatigue, Appetite - Normal, Sleep - Normal - INSOMNIA, TAKES ZOFRAN, Sexual Changes. Denies: PVD, Operative Discomfort, Angina, Wound Healing, Heart Arrhythmia/Irregularities, Appetite - Special Diet - Pain Is Patient Pain Free?: Yes Pain Location: back - LT SIDE BACK Risk Factor Assessment - Vital Signs Temperature: 98.6 F Respiratory Rate: 20 Pulse Ox: 97 Blood Pressure: 102/70 Nailbeds:: PINK - Pulse Pulse Rate: 63 Pulse Rhythm: Regular - Hypertension Blood Pressure Sitting - Left Arm: 102/70 - Stress Stress: Recent, Long-standing, Home/Family - Blood Cholesterol/Lipids Total Cholesterol (mg/dL) Goal = less than 200 mg/dL: 162 HDL Cholesterol (mg/dL) Goal = less than 40 mg/dL: 32 LDL Cholesterol (mg/dL) Goal = less than 70 mg/dL: 83 Triglycerides (mg/dL) Goal = less than 150 mg/dL: 235 - Diabetes Diabetic History: Type II, Medication Dependent Nutrition Referral for Diabetes: Yes - Obesity Height: 5 ft 3 in Weight:: 259 lb Weight in Pounds: 259.0 lbs Weight Source: Estimated by Patient Body Mass Index (BMI): 45.8 Nutritional Referral for Obesity: Yes - BMI 45.8 - Physical Inactivity Physical Inactivity: None - Risk Stratification Risk Guidelines: Lowest Risk: Risk Factor for Smoking, Risk Factor for Hypertension, Highest Risk: Risk Factor for Dyslipidemia, Risk Factor for Diabetes, Risk Factor for Obesity, Risk Factor for Sedentary Lifestyle, Risk Factor for Depression - For Smoking Smoking Risk Guidelines: Smoking Low Risk: None or quit greater than 6 months ago. Smoking Moderate Risk: Smoker or quit 6 months or less ago. Smoking High Risk: Smoker - For Dyslipidemia Dyslipidemia Risk Guidelines: Low Risk: Moderate Risk: High Risk: 15-25% fat 25.1-29% fat >/= 30% fat. <7% sat fat 7-9% sat fat >9% sat fat. <150 mg chol 150-299 mg chol >/= 300 mg chol. LDL <100 LDL 100-129 LDL >/= 130. Chol/HDL ratio <5.0 Chol/HDL ratio 5.0-6.0 Chol/HDL ratio >6.0. Triglycerides <100 Triglycerides 100-149 Triglycerides >/= 150 - For Diabetes Mellitus Diabetes Risk Guidelines: Diabetes Low Risk: HgA1c <6.5% and/or FBG <120. Diabetes Moderate Risk: HgA1c 6.6-7.9% and/or FBG 120-180. Diabetes High Risk: HgA1c >/= 8% and/or FBG >180 - For Obesity/Overweight Obesity/Overweight Risk Guidelines: Obesity Low Risk: BMI <25.0. Obesity Moderate Risk: BMI 25-29.9. Obesity High Risk: BMI >/= 30.0 - For Hypertension Hypertension Risk Guidelines: Hypertension Low Risk: Systolic <120 and Diastolic <80. Hypertension Moderate Risk: Systolic 120-139 and Diastolic 80-89. Hypertension High Risk: Systolic >/= 140 and Diastolic >/= 90 - For Sedentary Lifestyle Sedentary Lifestyle Risk Guidelines: Sedentary Lifestyle Low Risk: >/= 1,500 kcal/week. Sedentary Lifestyle Moderate Risk: 700-1,499 kcal/week. Sedentary Lifestyle High Risk: < 700 kcal/week - For Depression Depression Risk Guidelines: Depression Low Risk: Not clinically depressed. Depression Moderate Risk: Mildly depressed. Depression High Risk: Clinically depressed - Family History Family History: Family History (Last Reviewed 08/02/18 @ 13:05 by Lisa Rocha) Grandmother CVA (cerebral vascular accident) Mother CAD (coronary artery disease) A-fib Heart disease Father Heart disease Hypertension Cancer Sister Fibromyalgia Sister Myocardial infarction Diabetes CAD (coronary artery disease) Brother Myocardial infarction CAD (coronary artery disease) Diabetes Brother Cancer Asthma Aunt Colon cancer Uncle Colon cancer Diabetes Motivation - Motivation to Participate On a scale of 1 to 10, how prepared are you to commit to attending program?: 10 What do you see as barriers to successfully being able to complete the program?: INSURANCE, CO-PAY What do you see as the benefits of succesfully completing the program? In other words, what do you hope to get out of participating in the program?: GETTING OFF OF SOME OF THE MEDICATIONS. Are there issues you are dealing with that will interfere with completing the program?: NONE Do you have a spouse or signficant other, family or friends who will help support you to complete the program?: SPOUSE
[2018-10-26 13:08] VITALS: BP 102/70; PULSE 63; RESP 20; TEMP 37; O2SAT 97; BMI 45.8
[2018-10-26 13:35] VITALS: BP 102/70
== END ==
PROVIDERS: Family Provider Registered Nurse; PCP Registered Nurse; Referring Provider Internal Medicine Cardiovascular Disease; Visit Provider Internal Medicine Cardiovascular Disease
DX: I21.4 Non-ST elevation (NSTEMI) myocardial infarction (principal); Z95.5 Presence of coronary angioplasty implant and graft

== ENCOUNTER 2018-11-01 07:02 | Outpatient (RCR) | payer MEDICARE, SELFPAY ==
[2018-10-15 15:37] VITALS: BMI 43.4
[2018-10-26 13:08] VITALS: BMI 45.8
[2018-10-29 14:32] VITALS: BMI 45.5
== END 2018-11-16 23:59 ==
LOC: CR 07:02
PROVIDERS: Family Provider Registered Nurse; PCP Registered Nurse; Referring Provider Internal Medicine Cardiovascular Disease; Visit Provider Internal Medicine Cardiovascular Disease
DX: Z95.5 Presence of coronary angioplasty implant and graft (principal); I21.4 Non-ST elevation (NSTEMI) myocardial infarction
CPT/HCPCS: 93798

== ENCOUNTER → 2019-06-29 12:50 | Outpatient (REF) | payer MEDICARE, SELFPAY ==
[2018-10-15 15:37] VITALS: BMI 43.4
[2019-01-24 10:25] VITALS: BMI 45.7
== END ==
LOC: CVS 12:50
PROVIDERS: Family Provider Registered Nurse; PCP Registered Nurse; Referring Provider Internal Medicine Cardiovascular Disease; Visit Provider Internal Medicine Cardiovascular Disease
DX: I47.1 Supraventricular tachycardia (principal); R00.2 Palpitations; R07.9 Chest pain, unspecified
CPT/HCPCS: 93270

== ENCOUNTER → 2019-08-02 06:19 | Outpatient (CLI) | payer MEDICARE, SELFPAY ==
[2018-10-15 15:37] VITALS: BMI 43.4
[2019-07-07 11:20] VITALS: BMI 46.9
--- NOTE | 2019-08-02 14:33 | STRESSREP ---
Stress Test Report Date: Procedure: Pharmacologic stress nuclear imaging study Indications: Chest pain; EAD; PCI; PSVT; status post EPS/RFA Consent: Per the patient Procedure: The patient underwent pharmacologic (Regadenoson) evaluation with a peak heart rate of 91 beats per minute (56 %predicted maximal heart rate) and a peak blood pressure of 130/82 mmHg. The baseline ECG demonstrated normal sinus rhythm. The peak pharmacologic ECG demonstrated no obvious ECG changes. There were no cardiac dysrhythmias pretest, during pharmacologic infusion, or recovery. There was no complaint of chest discomfort during pharmacologic infusion or recovery. The examination was discontinued secondary to completion of protocol. Impression: 1. Pharmacologic (Regadenoson) evaluation 2. Peak pharmacologic ECG with no obvious ECG changes. 3. There were no cardiac dysrhythmias pretest, during pharmacologic infusion, or recovery. 4. Nuclear images pending Myocardial perfusion imaging study: Technique: The patient was injected with 14.5 millicuries of technetium 99m Cardiolite and subsequently rest SPECT Cardiolite nuclear imaging was obtained in the horizontal long, vertical long, and short axis views. The patient underwent pharmacologic (Regadenoson) evaluation with a peak heart rate of 91 beats per minute (56 % percent predicted maximal heart rate) and a peak blood pressure of 130/82 mmHg. The patient was injected with 44.7 millicuries of technetium 99m Cardiolite and subsequently stress SPECT Cardiolite nuclear imaging was obtained in the horizontal long, vertical long, and short axis views. A gated Cardiolite study at peak stress was obtained. Interpretation: Rest and stress SPECT Cardiolite nuclear imaging status post realignment, normalization, and attenuation correction demonstrate rest areas of diminished tracer uptake in portions of the distal anterior/anteroapical segments. Status post stress there is areas of diminished tracer uptake in portions of the mid to distal anterior, anteroseptal, anterolateral, and anterior apical segments. There is diminished end systolic thickening and brightening. The gated Cardiolite study demonstrates diminished myocardial thickening and inward wall motion. The reported LVEF is 21 %. Impression: 1. Rest and stress SPECT currently nuclear imaging demonstrate myocardial perfusion changes potentially compatible with an area of previous myocardial injury/infarction in portions of the distal anterior/anteroapical segments with post stress myocardial perfusion changes appearing concerning for areas of associated stress-induced myocardial ischemia in portions of the mid towards distal anterior, anteroseptal, and anterolateral segments, however, an element of shifting soft tissue attenuation/artifact cannot necessarily be excluded. 2. The gated Cardiolite study reports an LVEF of 21 %. This note was generated with [employer] software. It may contain incorrect words, spelling, and punctuation that were not noted in checking the note before signing.
== END ==
PROVIDERS: Family Provider Registered Nurse; PCP Registered Nurse; Referring Provider Nurse Practitioner Family; Visit Provider Nurse Practitioner Family
DX: R07.9 Chest pain, unspecified (principal); I25.10 Atherosclerotic heart disease of native coronary artery without angina pectoris; I42.9 Cardiomyopathy, unspecified; E11.9 Type 2 diabetes mellitus without complications; E78.5 Hyperlipidemia, unspecified; I10 Essential (primary) hypertension; Z95.5 Presence of coronary angioplasty implant and graft; Z98.890 Other specified postprocedural states
CPT/HCPCS: 78452; 93017; A9500; A4216; J2785

== ENCOUNTER 2019-08-16 08:46 | Day surgery (SDC) | payer MEDICARE, SELFPAY ==
[2018-10-15 15:37] VITALS: BMI 43.4
[2019-07-07 11:20] VITALS: BMI 46.9
--- NOTE | 2019-08-05 09:23 | RAD_ITS ---
STUDY: X-RAY CHEST REASON FOR EXAM: Female, 59 years old. CHEST PAIN -- PRE HEART CATH, PREVIOUS BLOCKAGE TECHNIQUE: PA and lateral views of the chest. COMPARISON: Previous study of 10/14/2018 FINDINGS: The lungs are clear and expanded. 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 Normal size heart. Normal mediastinum and renetta. Normal visualized pulmonary arteries. Normal visualized aortic arch and descending thoracic aorta. Normal visualized thoracic spine. Normal visualized ribs, clavicles, and shoulders. There is no demonstrated abnormality of the visualized soft tissue structures of the upper abdomen. 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 This is stable in the interval. No acute cardiopulmonary disease process is seen. Electronically Signed: Flaquito Jama MD at 20:17 EST , Service support ,
[2019-08-05 09:42] LABS: Hemoglobin 13.2 g/dL (12.0-15.0); Mean Corp Hgb Conc 31.4 g/dL (32-36); Mean Corpuscular Hgb 27.6 pg (27.0-32.0); Mean Corpuscular Volume 87.7 fL (81-99); Mean Platelet Vol. 9.7 fl (6.2-12.0); Platelet Count 270 K/mm3 (150-450); RBC Distribution Width CV 14.9 % (11.6-14.6); RBC Distribution Width SD 47.8 fl (35.1-43.9); Red Blood Count 4.79 M/mm3 (4.2-5.4); White Blood Count 10.5 K/mm3 (4.4-11.0)
[2019-08-05 09:55] LABS: International Normalized Ratio 1.1; Prothrombin Time (Protime)PT. 14.1 SECONDS (11.7-14.9)
[2019-08-05 09:56] LABS: Partial Thromboplast Time 30.7 Seconds (24.1-36.2)
[2019-08-05 10:01] VITALS: BMI 45.7
[2019-08-05 10:14] LABS: Anion Gap 7 (5-15); BUN 19 mg/dL (7-18); BUN/Creat Ratio 20.2 RATIO (10-20); Calcium,Total 9.3 mg/dL (8.5-10.1); Chloride 99 mmol/L (98-107); Creatinine, Serum 0.94 mg/dL (0.55-1.02); EST Glomerular Filtration Rate 65 mL/min (>60); Est Glom Filt Rate - Afr Amer 78 mL/min (>60); Glucose 261 mg/dL (74-106); Sodium Level 134 mmol/L (136-145)
[2019-08-08 11:53] VITALS: BMI 46.9
--- NOTE | 2019-08-16 09:10 | HP.PCM_ITS ---
<Mikhail Manjarrez - Last Filed: 08/16/19 09:10> History and Physical Date of Admission: 08/16/19 HPI History of Present Illness Details: YUE IBRAHIM, is a 59 F who presents to the [facility] today for a heart catheterization. She has a history of coronary artery disease status post drug eluding stent to RCA in September 2018, PSVT with ablation in 03/2017, HTN, hyperlipidemia, HUSSEIN viral mediated cardiomyopathy, and diabetes. Patient was seen in office on 07/07/2019 expressing symptoms of palpitations, chest pain, and shortness of breath with activity. She underwent a stress test on 08/02/2019 that showed post stress myocardial perfusion changes appearing concerning for area of associated stress-induced micro-ischemia in portions of the mid towards distal anterior, anteroseptal, and anterolateral segments, however, an element of shifting soft tissue attenuation/artifact cannot necessarily be excluded. LVEF was reported 21%. Because of her stress test and symptoms, she will proceed with heart catheterization. She does continue to have intermittent episodes of chest pain. She does not says this is improved since office visit. She continues with intermittent shortness of breath with activity. She denies lightheadedness, dizziness, presyncope, syncope, edema, claudication, fever, chills, blood in urine, blood in stool, unexplainable fatigue. Intake Vital Signs: See EMR Intake Visit Reasons: [facility] Crossing Guard Required: No Is patient in pain?: No Allergies clindamycin Allergy (Verified 07/07/19 11:20) Hives erythromycin base Allergy (Verified 07/07/19 11:20) Hives nitrofurantoin macrocrystalline [From Macrodantin] Allergy (Verified 07/07/19 11:20) Hives Sulfa (Sulfonamide Antibiotics) Allergy (Verified 07/07/19 11:20) Hives sulfamethoxazole [From Septra] Allergy (Verified 07/07/19 11:20) Hives trimethoprim [From Septra] Allergy (Verified 07/07/19 11:20) Hives lisinopril Adverse Reaction (Intermediate, Verified 07/07/19 11:20) Dry Hacking Cough Medications See EMR [facility] Medical History (Updated 10/29/18 @ 15:04 by Mikhail Manjarrez BUSINESS PROCESS CONSULTANT-C) Atherosclerotic heart disease of [place] coronary artery without angina pectoris (Chronic) Obstructive sleep apnea (Chronic) Chest pain, rule out acute myocardial infarction (Acute) NSTEMI (non-ST elevated myocardial infarction) (Acute) Cardiomyopathy (Chronic) Diabetes mellitus (Acute) Essential hypertension (Chronic) HLD (hyperlipidemia) (Chronic) Supraventricular tachycardia (Chronic) GERD (gastroesophageal reflux disease) (Chronic) Hypothyroidism (Chronic) HUSSEIN (obstructive sleep apnea) (Chronic) HTN (hypertension) (Inactive) Surgical History (Updated 10/15/18 @ 18:29 by June Man) Stented coronary artery (Chronic 10/15/18) History of left heart catheterization (Chronic 10/15/18) History of cardiac radiofrequency ablation (Resolved ~04/07/17) H/O prior ablation treatment (Chronic 04/07/17) History of (Chronic) History of total right knee replacement (TKR) (Chronic ~06/2014) History of hysterectomy (Resolved) Social History (Updated 07/07/19 @ 12:50 by Mikhail Manjarrez BUSINESS PROCESS CONSULTANT-C) Smoking Status: Never smoker alcohol intake: never substance use type: does not use caffeine: Yes Type: carbonated beverages, coffee what type of physical activity do you participate in: none seatbelt use: always do you feel safe at home: Yes ROS Const Const: Negative for fatigue; negative for weakness, body ache, fever(s) or chills ENT ENT: Negative for dizziness Cardio Chest Pain: Yes Palpitations: Yes Edema: None Muscle aches with walking: None Resp Respiratory: Positive for SOB with activity; negative for SOB at rest, SOB orthopnea\SOB lying down or paroxysmal nocturnal dyspnea GI GI: Negative nausea, vomiting blood/hematemesis, bright, red blood in stools or black,tarry stools : Negative for hematuria or frequent nighttime urination/ nocturia Musc Musc: Negative for muscle aches/ myalgia Skin Skin: Negative non-healing lesions or rash Neuro Neuro: Negative for dizziness and lightheadedness; negative for near syncope, syncope, orthostatic symptoms or weakness Endo Endo: Negative for fatigue Allergy Allergy/Immunology: Negative for rash Cardiology Exam Const Appearance: cooperative, healthy appearing, comfortable and no acute distress Nutritional Appearance: well nourished and obese Orientation: alert, awake and oriented x3 Head Head: normal to inspection Ears: hearing grossly normal bilaterally Nose: external nose normal Face and Sinus: face symmetric Mouth: oral mucosae normal Eyes General: appearance normal, both eyes and all related structures Eyelids: eyelids normal EOM: EOM intact bilaterally Neck Neck: normal visual inspection and no JVD Carotids: normal carotid upstroke Chest Chest inspection: normal inspection of the chest, symmetric chest movement and normal respiratory effort; negative cough Auscultation: Bilateral: Clear to Auscultation Cardio Rate: regular rate Rhythm: regular rhythm Heart sounds: S1 normal and S2 normal; negative rub, gallop or murmur GI GI: normal to inspection and obese Neuro General: alert, awake, oriented x3 and CN's II-XI intact bilaterally Skin Skin: no rashes or lesions noted Extremities Pulses: Normal: Right Posterior Tibial Pulse, Left Posterior Tibial Pulse, Right Radial Pulse, Left Radial Pulse Lower Extremity Edema: None: Bilateral Psych Psychological: normal affect Assessment & Plan 1. Atherosclerosis of pilot station coronary artery of pilot [place] heart without angina pectoris I25.10 Successful 2.75 x 12 Resolute JULIA to the right PL per Dr. Castellon @ [facility] Plan Her heart catheterization September 2018 showed residual 50-75% stenosis to mid circumflex. Given the results of her test as well as above, she will proceed with left heart catheterization. 2. Stented coronary artery Z95.5 Successful 2.75 x 12 Resolute JULIA to the right PL per Dr. Castellon @ [facility] Plan She will continue current medical therapy. 3. Cardiomyopathy, unspecified type I42.9 Plan Her most recent echocardiogram from September 2018 showed her ejection fraction of 55%. She does note ongoing shortness of breath with activity. The exact etiology is unclear at this time. If her coronary artery disease work-up is inconclusive or negative we can consider low-dose diuretic for possible diastolic dysfunction. At this time, she will continue with current beta- yeyo and ARB. We will continue to monitor. 4. History of cardiac radiofrequency ablation Z98.890 S/P ablation @ [facility] 04/07/2017; Patient is 30-day event monitor was negative for concerning dysrhythmia. She will continue with current medical therapy. 5. Essential (primary) hypertension I10 Plan Patient's blood pressure is well-controlled. We will continue to monitor. We will not make any medication regimen changes. 6. Mixed hyperlipidemia E78.2 Plan Lipid panel from September 2018 showed cholesterol: 162, HDL: 32, LDL: 83, and triglycerides: 235. She continue current statin medication. Additional Comments Patient does acknowledge that she is considering gastric bypass surgery to assist with diabetes management and weight loss. Her upcoming stress test will help discern cardiac risk. She is asked continue to follow with primary care physician for ongoing diabetes management. Thank you for allowing us to participate in the patients plan of care, if you have any questions please do not hesitate to call. This note was generated using a voice recognition system and there may be incorrect words, spelling or punctuation that were not noted when reviewing the office note prior to saving. Supplemental Info Supplemental Information Echocardiogram from 10/14/2018: Interpretation Summary The study was technically difficult. Contrast injection was performed. Segmental dysfunction with preserved ejection fraction (see wall motion). The estimated ejection fraction is 55 %. The left atrium is mildly enlarged. Mild mitral valve prolapse. Trivial mitral valve insufficiency. Trivial tricuspid valve insufficiency. Mild focal aortic valve calcification. Right ventricular systolic pressure estimated to be 25 mmHg. Transmitral doppler flow suggestive of impaired relaxation of left ventricle Heart catheterization from 10/15/2018: CORONARY ANGIOGRAPHY DOMINANCE: Right Dominant LEFT HEART ASSESSMENT Left Ventricular Ejection Fraction: by LV Gram 55 % Inferior Mid Hypokinesis Normal Left Ventricular End Diastolic Pressure LVEDP: 4 mmHg LEFT MAIN: Angiographically normal LEFT ANTERIOR DESCENDING ARTERY: Mild luminal irregularities DIAGONAL 1: Proximal - Mild luminal irregularities CIRCUMFLEX ARTERY: Mild luminal irregularities PROX CIRC: 10 - 25 % Stenosis MID CIRC: Eccentric: Hazy: 50 - 75 % Stenosis RIGHT CORONARY ARTERY: Mild luminal irregularities RT PLV: Eccentric: 85 % Stenosis (large long vessel) VALVE FINDINGS: Normal Aortic Valve function Normal Mitral Valve function AORTIC ROOT: Angiographically normal CONCLUSIONS Successful 2.75 x 12 Resolute JULIA to the right PL Stress Test Report Date: ? Procedure: Pharmacologic stress nuclear imaging study Indications: Chest pain; EAD; PCI; PSVT; status post EPS/RFA Consent: Per the patient Procedure: The patient underwent pharmacologic (Regadenoson) evaluation with a peak heart rate of 91 beats per minute (56 %predicted maximal heart rate) and a peak blood pressure of 130/82 mmHg. The baseline ECG demonstrated normal sinus rhythm. The peak pharmacologic ECG demonstrated no obvious ECG changes. There were no cardiac dysrhythmias pretest, during pharmacologic infusion, or recovery. There was no complaint of chest discomfort during pharmacologic infusion or recovery. The examination was discontinued secondary to completion of protocol. Impression: 1. Pharmacologic (Regadenoson) evaluation 2. Peak pharmacologic ECG with no obvious ECG changes. 3. There were no cardiac dysrhythmias pretest, during pharmacologic infusion, or recovery. 4. Nuclear images pending Myocardial perfusion imaging study: Technique: The patient was injected with 14.5 millicuries of technetium 99m Cardiolite and subsequently rest SPECT Cardiolite nuclear imaging was obtained in the horizontal long, vertical long, and short axis views. The patient underwent pharmacologic (Regadenoson) evaluation with a peak heart rate of 91 beats per minute (56 % percent predicted maximal heart rate) and a peak blood pressure of 130/82 mmHg. The patient was injected with 44.7 millicuries of technetium 99m Cardiolite and subsequently stress SPECT Cardiolite nuclear imaging was obtained in the horizontal long, vertical long, and short axis views. A gated Cardiolite study at peak stress was obtained. Interpretation: Rest and stress SPECT Cardiolite nuclear imaging status post realignment, normalization, and attenuation correction demonstrate rest areas of diminished tracer uptake in portions of the distal anterior/anteroapical segments. Status post stress there is areas of diminished tracer uptake in portions of the mid to distal anterior, anteroseptal, anterolateral, and anterior apical segments. There is diminished end systolic thickening and brightening. The gated Cardiolite study demonstrates diminished myocardial thickening and inward wall motion. The reported LVEF is 21 %. Impression: 1. Rest and stress SPECT currently nuclear imaging demonstrate myocardial perfusion changes potentially compatible with an area of previous myocardial injury/infarction in portions of the distal anterior/anteroapical segments with post stress myocardial perfusion changes appearing concerning for areas of associated stress-induced myocardial ischemia in portions of the mid towards distal anterior, anteroseptal, and anterolateral segments, however, an element of shifting soft tissue attenuation/artifact cannot necessarily be excluded. 2. The gated Cardiolite study reports an LVEF of 21 %. This note was generated with [employer] software. It may contain incorrect words, spelling, and punctuation that were not noted in checking the note before signing. <James Miller - Last Filed: 08/16/19 09:39> History and Physical Addendum: Date: 08-16-2019 I have re-examined the patient. There are no clinical changes since date of exam.
--- NOTE | 2019-08-16 10:50 | CL.D_ITS ---
Patient Name: YUE IBRAHIM Study Date: 08/16/2019 Performing: James Miller MD Ht: 62.99 inches 160 cm : 1960 Wt: 264.55 lbs 120 kg Age: 59 Gender: female BSA: 2.18 PROCEDURE(S) PERFORMED IV25-FJQ/COR/LV CLINICAL PROFILE AND INDICATIONS Indications: Suspected CAD Heart Failure: None Stress/Imaging Date: 08/02/2019Stress Test with SPECT MPI: Positive Angina Classification Anginal Classification w/in 2 Weeks: CCS III CAD Presentations: Other: chest pain / shortness of breath with exertion CONCLUSIONS Normal Left Ventricular End Diastolic Pressure Normal LV size, wall motion,and systolic function LVEF: by LV gram 55 % Kashia Multivessel CAD RECOMMENDATIONS Risk factor modification Medical therapy DESCRIPTION OF PROCEDURE The patient arrived to the procedure lab. The risks and benefits of the procedure as well as a full d escription of our services here and current unavailability of surgical backup were fully explained to the patient and/or their significant other prior to the catheterization. The Timeout was completed, verifying the correct patient and procedure. The patient's procedural site was prepped and draped in the usual fashion. Local anesthetic was given subcutaneously to right groin region with Lidocaine 2%. Using a modified Seldinger technique, arterial access was obtained via the right femoral artery, a 4 Fr sheath was inserted Left Coronary Artery selective angiography was performed in multiple views us ing a 4 Fr. JL5 catheter. Right Coronary Artery selective angiography was then performed in multiple views using a 4 Fr. 3DRC catheter. Left Ventriculography was performed in DIETRICH projection using a 4 Fr . Pigtail catheter. LV to AO pullback pressures were then recorded.The arterial sheath was pulled and manual compression applied until hemostasis is achieved. CORONARY ANGIOGRAPHY DOMINANCE: Right Dominant LEFT HEART ASSESSMENT Left Ventricular Ejection Fraction: by LV Gram 55 % Normal LV wall motion Normal Left Ventricular End Diastolic Pressure LVEDP: 12 mmHg LEFT MAIN: Angiographically normal LEFT ANTERIOR DESCENDING ARTERY: Mild luminal irregularities DIAGONAL 1: Proximal - Mild luminal irregularities DIAGONAL 2: Proximal - Mild luminal irregularities CIRCUMFLEX ARTERY: PROX CIRC: eccentric: 10 % Stenosis MID CIRC: eccentric: hazy: 25 % Stenosis RIGHT CORONARY ARTERY: PROX RCA: Mild luminal irregularities DISTAL RCA: Mild luminal irregularities RT PLV: Previously placed stent is patent AORTIC ROOT: Angiographically normal COMPLICATIONS No Complications PROCEDURE MEDICATIONS Versed 1 mg IV Versed 1 mg IV Oxygen: 2 L/min via nasal cannula SUMMARY OF HEMODYNAMIC DATA Time AIR REST ECG 09:17:28 AO 147/96 (118) SA 10:07:23 LV 145/-19, 17 10:14:13 LV 138/-20, 12 10:14:19 LV 154/-17, 17 10:15:08 LV 153/-18, 13 10:15:15 LVp 154/-22, 12 10:15:19 AOp 157/81 (114) 10:15:24 Signed By James Miller MD On 08/16/2019 10:49:18 James Miller MD
== END 2019-08-16 15:10 | disposition home or self-care (01) ==
LOC: CLSP 08:47
PROVIDERS: Family Provider Registered Nurse; PCP Registered Nurse; Referring Provider Internal Medicine Cardiovascular Disease; Visit Provider Internal Medicine Cardiovascular Disease
DX: I25.10 Atherosclerotic heart disease of native coronary artery without angina pectoris (principal); R07.9 Chest pain, unspecified; I42.9 Cardiomyopathy, unspecified; I10 Essential (primary) hypertension; E78.2 Mixed hyperlipidemia; I25.2 Old myocardial infarction; E11.9 Type 2 diabetes mellitus without complications; K21.9 Gastro-esophageal reflux disease without esophagitis; E66.9 Obesity, unspecified; Z95.5 Presence of coronary angioplasty implant and graft
CPT/HCPCS: 36415; 71046; 80048; 85027; 85610; 85730; 93458; 99152; 99153; J7040; Q9967; C1769; C1894

== ENCOUNTER → 2019-08-17 10:58 | Outpatient (CLI) | payer MEDICARE, SELFPAY ==
[2018-10-15 15:37] VITALS: BMI 43.4
[2019-08-17 10:58] VITALS: BMI 45.7
[2019-08-17 12:47] LABS: Anion Gap 7 (5-15); BUN 12 mg/dL (7-18); BUN/Creat Ratio 13.3 RATIO (10-20); Calcium,Total 9.7 mg/dL (8.5-10.1); Chloride 106 mmol/L (98-107); EST Glomerular Filtration Rate 68 mL/min (>60); Est Glom Filt Rate - Afr Amer 82 mL/min (>60); Glucose 158 mg/dL (74-106); Potassium 4.2 mmol/L (3.5-5.1); Sodium Level 137 mmol/L (136-145)
== END ==
PROVIDERS: PCP Registered Nurse; Referring Provider Internal Medicine Cardiovascular Disease; Visit Provider Internal Medicine Cardiovascular Disease
DX: I25.10 Atherosclerotic heart disease of native coronary artery without angina pectoris (principal); Z95.5 Presence of coronary angioplasty implant and graft
CPT/HCPCS: 36415; 80048

== ENCOUNTER 2020-01-02 12:04 | Emergency (ER) | payer MEDICARE, SELFPAY ==
[2018-10-15 15:37] VITALS: BMI 43.4
[2019-11-02 09:57] VITALS: BMI 45.5
[2020-01-02 12:05] VITALS: BP 157/76; PULSE 83; RESP 17; TEMP 36.1; O2SAT 96; BMI 46.3
--- NOTE | 2020-01-02 12:13 | RAD_ITS ---
STUDY: X-RAY - LEFT SHOULDER REASON FOR EXAM: Female, 59 years old. LEFT SHOULDER PAIN S/P FALL TODAY -- LIMITED ROM TECHNIQUE: 4 view(s) of the shoulder. COMPARISON: None. FINDINGS: Normal glenohumeral articulation. There is degenerative arthrosis of the acromioclavicular joint without inferior osseous spur formation. Normal acromion. Normal humeral head and visualized proximal humerus. The soft tissue structures are unremarkable. Normal visualized pulmonary apex. RAD/Shoulder min 2 Views IMPRESSION: Arthrosis of the left acromioclavicular joint. Electronically Signed: Tavo Wiggins, at 12:49 EDT , Service support ,
--- NOTE | 2020-01-02 12:13 | RAD_ITS ---
STUDY: X-RAY - UNILATERAL RIBS ( LEFT ) WITH CHEST REASON FOR EXAM: Female, 59 years old. LEFT SIDED ANTERIOR RIB PAIN S/P FALL TODAY TECHNIQUE - RIBS: 4 view(s) of the ribs. TECHNIQUE - CHEST: Single PA view of the chest. COMPARISON: Comparison is made with prior chest radiograph dated August 05, 2019. FINDINGS - RIBS: Normal visualized ribs without a demonstrated fracture. FINDINGS - CHEST: Stable elevation of the right hemidiaphragm. There is no demonstrated pleural abnormality. Normal size heart. Normal mediastinum and renetta. Normal visualized pulmonary arteries. There is atherosclerotic tortuosity of the aortic arch and descending thoracic aorta. There are degenerative changes of the visualized thoracic spine. Normal visualized ribs, clavicles, and shoulders. There is no demonstrated abnormality of the visualized soft tissue structures of the upper abdomen. RAD/Ribs Uni Min 3V w/PA Chest IMPRESSION: RIBS: Normal x-ray examination of the ribs. CHEST: Normal x-ray examination of the chest. Stable examination. Electronically Signed: Tavo Wiggins, at 12:48 EDT , Service support ,
--- NOTE | 2020-01-02 12:13 | EKG12_ITS ---
Test Reason : FALL Blood Pressure : / mmHG Vent. Rate : 076 BPM Atrial Rate : 076 BPM P-R Int : 142 ms QRS Dur : 084 ms QT Int : 360 ms P-R-T Axes : 020 -27 037 degrees QTc Int : 405 ms Normal sinus rhythm Nonspecific T wave abnormality Abnormal ECG Confirmed by BURT SANDERSON, BEBETO ([id number]), greeting card editor LACEY MATIAS ([id number]) on 01/03/2020 11:16:59 AM Referred By: DYLAN Confirmed By:BEBETO DALLAS MD
--- NOTE | 2020-01-02 12:20 | ED.VIS.GEN ---
History of Present Illness Chief Complaint: Fall Informant: Patient Onset: Today Context: Sudden Onset Timing: Continuous Current Severity: Moderate Maximum Severity: Moderate Narrative: The patient is a 59-year-old female with medical history significant for coronary vascular disease who presents to the emergency department after mechanical fall. Patient was at [facility]. She was walking and tripped over a curb. She fell forward landing on her left shoulder and left chest wall. She did not strike her head. She denies loss of consciousness. She states since then, she has had some pain across her left chest worse when she moves or twists. She is also had diminished range of motion of the shoulder secondary to pain. The patient is on Plavix. She denies any nausea or vomiting. Again, she had no head injury. Prior similar symptoms: No Recent Illness/Hospitalization: No Past Medical History - Allergies and Home Meds Allergies/Adverse Reactions: Allergies clindamycin Allergy (Verified 01/02/20 12:04) Hives erythromycin base Allergy (Verified 01/02/20 12:04) Hives nitrofurantoin macrocrystalline [From Macrodantin] Allergy (Verified 01/02/20 12:04) Hives Sulfa (Sulfonamide Antibiotics) Allergy (Verified 01/02/20 12:04) Hives sulfamethoxazole [From Septra] Allergy (Verified 01/02/20 12:04) Hives trimethoprim [From Septra] Allergy (Verified 01/02/20 12:04) Hives lisinopril Adverse Reaction (Intermediate, Verified 01/02/20 12:04) Dry Hacking Cough Primary Care Physician: Liana Castanon NP-C [Primary Care Provider] - Prior records reviewed: Yes Past Medical History: - - Coronary vascular disease Surgical History: hysterectomy, - - today total hysterectomy with BL salpingo-oopherectomy Smoking Status: Never smoker Review of Systems General: Denies: Chills, Fever, Sweats Eyes: Denies: Visual changes - bilaterally, Diplopia ENT: Denies: Rhinorrhea, Sore throat Cardiovascular: Denies: Chest pain, Palpitations Respiratory: Denies: Dyspnea, Cough, Dyspnea on exertion Gastrointestinal: Denies: Abdominal pain, Nausea, Vomiting, Diarrhea, Melena, Hematochezia Genitourinary: Denies: Dysuria, Hematuria, Frequency Musculoskeletal: Denies: Back pain, Extremity Pain Skin: Denies: Rash, Wounds Neurological: Denies: Headache, Weakness, Numbness Physical Exam Vital Signs/Narrative: Vital Signs Temp Pulse Resp BP Pulse Ox 01/02/20 12:05 97.0 F L 83 17 157/76 H 96 Inital Vital Signs reviewed: Yes General: Well nourished, Well developed, No Acute Distress Head: Normocephalic, Atraumatic Eyes: Perrl, EOMI ENT: Moist mucous membranes, No rhinorrhea Neck: Supple, Nontender Cardiovascular: Regular rate, Regular rhythm, No murmurs Respiratory: No distress, CTA bilaterally, Chest tenderness Abdomen: Soft, Nontender, Nondistended, Normal bowel sounds Back: Nontender, Normal Inspection Extremities: No edema, Tenderness - Tender over the proximal humerus. 2+ pulses. No loss of motion. Skin: Normal color, No rash Neurological: Alert, Oriented x3, Cranial nerves II-XII grossly intact, Normal Strength, Normal Sensation Psychological: Normal affect, Normal Mood Diagnostic/Tx/Re-eval Clinical Impression(s) from Imaging Studies Ribs w/Chest X-Ray 01/02/20 12:13 IMPRESSION: RIBS: Normal x-ray examination of the ribs. CHEST: Normal x-ray examination of the chest. Stable examination. Electronically Signed: Tavo Rosalie, at 12:48 EDT , Service support , Shoulder X-Ray 01/02/20 12:13 IMPRESSION: Arthrosis of the left acromioclavicular joint. Electronically Signed: Tavo Wiggins, at 12:49 EDT , Service support , - Medical Decision Making The patient presents to the emergency department after mechanical fall. She did not strike her head. She did not lose consciousness. She was having some pain in her left shoulder with range of motion and some mild pain across her ribs. Plain films were obtained of the patient's shoulder and ribs. There is no evidence of fracture, dislocation, pneumothorax. With her cardiac history I did obtain an EKG which was sinus rhythm without acute ischemia. Patient is resting comfortably. She declined analgesics. She be placed in a sling, but was counseled on range of motion exercises to prevent frozen shoulder. She is comfortable with plan for outpatient follow-up. Impression 1. Left shoulder sprain status post fall 2. Left rib contusion status post fall ED Disposition - Plan for ED Patient: Instructions: ED Mechanical Fall, ED Shoulder Sprain Referrals: Liana Castanon NP-C [Primary Care Provider] -
[2020-01-02] MEDS: Acetaminophen 500 MG Tablet 1000 MG PO (13:15)
== END 2020-01-02 13:16 | disposition home or self-care (01) ==
LOC: ED 12:48
PROVIDERS: Emergency Provider Emergency Medicine; PCP Registered Nurse
DX: S43.402A Unspecified sprain of left shoulder joint, initial encounter (principal); S20.212A Contusion of left front wall of thorax, initial encounter; I25.10 Atherosclerotic heart disease of native coronary artery without angina pectoris; Z79.02 Long term (current) use of antithrombotics/antiplatelets; W01.0XXA Fall on same level from slipping, tripping and stumbling without subsequent striking against object, initial encounter; Y93.01 Activity, walking, marching and hiking; Y92.511 Restaurant or cafe as the place of occurrence of the external cause; Y99.8 Other external cause status
CPT/HCPCS: 71101; 73030; 93005; 99283

== ENCOUNTER → 2020-07-05 10:45 | Outpatient (CLI) | payer MEDICARE, SELFPAY ==
[2018-10-15 15:37] VITALS: BMI 43.4
[2020-05-16 14:46] VITALS: BMI 46.4
== END ==
PROVIDERS: PCP Registered Nurse; Referring Provider Family Medicine; Visit Provider Family Medicine
DX: Z20.828 Contact with and (suspected) exposure to other viral communicable diseases (principal)
CPT/HCPCS: 87635; C9803; U0003

== ENCOUNTER → 2020-07-16 11:26 | Outpatient (CLI) | payer MEDICARE, SELFPAY ==
[2018-10-15 15:37] VITALS: BMI 43.4
[2020-05-16 14:46] VITALS: BMI 46.4
[2020-07-16 12:12] LABS: Anion Gap 7 (5-15); BUN 15 mg/dL (7-18); BUN/Creat Ratio 15.2 RATIO (10-20); Calcium,Total 9.3 mg/dL (8.5-10.1); Chloride 101 mmol/L (98-107); Creatinine, Serum 0.99 mg/dL (0.55-1.02); EST Glomerular Filtration Rate 61 mL/min (>60); Est Glom Filt Rate - Afr Amer 74 mL/min (>60); Glucose 187 mg/dL (74-106); Potassium 4.4 mmol/L (3.5-5.1); Sodium Level 132 mmol/L (136-145)
== END ==
PROVIDERS: PCP Registered Nurse; Referring Provider Nurse Practitioner Family; Visit Provider Nurse Practitioner Family
DX: R60.9 Edema, unspecified (principal)
CPT/HCPCS: 36415; 80048

== ENCOUNTER → 2021-01-03 09:41 | Outpatient (CLI) | payer MEDICARE, SELFPAY ==
[2018-10-15 15:37] VITALS: BMI 43.4
[2020-12-28 11:12] VITALS: BMI 44.9
[2021-01-03 10:26] LABS: Hematocrit 44.9 % (37-47); Hemoglobin 13.7 g/dL (12.0-15.0); Mean Corp Hgb Conc 30.5 g/dL (32-36); Mean Corpuscular Volume 88.4 fL (81-99); Mean Platelet Vol. 9.1 fl (6.2-12.0); Platelet Count 343 K/mm3 (150-450); RBC Distribution Width CV 15.6 % (11.6-14.6); RBC Distribution Width SD 50.9 fl (35.1-43.9); Red Blood Count 5.08 M/mm3 (4.2-5.4); White Blood Count 10.7 K/mm3 (4.4-11.0)
[2021-01-03 11:20] LABS: Anion Gap 7 (5-15); BUN 17 mg/dL (7-18); BUN/Creat Ratio 15.7 RATIO (10-20); Calcium,Total 9.2 mg/dL (8.5-10.1); Chloride 102 mmol/L (98-107); Creatinine, Serum 1.08 mg/dL (0.55-1.02); EST Glomerular Filtration Rate 55 mL/min (>60); Est Glom Filt Rate - Afr Amer 66 mL/min (>60); Glucose 244 mg/dL (74-106); Magnesium 1.9 mg/dL (1.6-2.6); Potassium 4.5 mmol/L (3.5-5.1); Sodium Level 137 mmol/L (136-145); Thyroid Stim Hormone (TSH) 1.21 uIU/mL (0.358-3.74)
== END ==
PROVIDERS: PCP Registered Nurse; Referring Provider Physician Assistant Medical; Visit Provider Physician Assistant Medical
DX: R06.00 Dyspnea, unspecified (principal); I47.1 Supraventricular tachycardia; R00.2 Palpitations; I42.9 Cardiomyopathy, unspecified
CPT/HCPCS: 36415; 80048; 83735; 84443; 85027; 93225; 93226

== ENCOUNTER 2021-08-09 08:59 | Emergency (ER) | payer MEDICARE, SELFPAY ==
[2018-10-15 15:37] VITALS: BMI 43.4
[2021-08-09 09:00] VITALS: BP 130/85; PULSE 74; RESP 18; TEMP 36.8; O2SAT 100; BMI 47.2
[2021-08-09] MEDS: HYDROcodone Bitartrate/Apap 5/325 Tablet PO (09:24)
--- NOTE | 2021-08-09 09:51 | EDS_ITS ---
HPI History of Present Illness Chief Complaint: Back Detail of Chief Complaint: Central low back pain Informant: patient Onset/Context/Timing Onset: Days (Onset 3 to 4 days ago) Context: Sudden Onset Chronic pain exacerbated by: Nothing specifically Timing: Continuous and Waxes and wanes Quality: Dull and Aching Location: Lumbar (Central low back pain over L4-S1 region.) Current Severity: 3/10 Maximum Severity: 9/10 Worsened by: improves with Movement, Ambulation, Bending and Lifting Relieved by: Nothing Associated Symptoms Associated Symptoms: - (No complaint of foot drop. No buckling of knees. No recent dental procedure.); Negative for Numbness, Tingling, Radiation to Right Leg, Radiation to Left Leg, Fever, Abdominal Pain, Dysuria, Unable to Ambulate, Unable to Transfer, Urinary Retention, Urinary Incontinence, Constipation and Fecal Incontinence Narrative Narrative: Patient is a 61-year-old woman with a BMI of 47.3 who presents with atraumatic central low back pain without radiculopathy. She has no bowel bladder dysfunction. Pain is worse with movement. There is no history of prior back surgery. 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 She is on antiplatelet medication. Prior similar symptoms: Yes and With Prior Back Pain Recent Illness/Hospitalization: No PFSH PFS Medical History Atherosclerotic heart disease of [place] coronary artery without angina pectoris Cardiomyopathy Diabetes mellitus Essential hypertension GERD (gastroesophageal reflux disease) HTN (hypertension) Hypothyroidism Mixed hyperlipidemia NSTEMI (non-ST elevated myocardial infarction) Obstructive sleep apnea HUSSEIN (obstructive sleep apnea) Supraventricular tachycardia Home Medications aspirin 81 mg PO DAILY@0800 09/11/15 [History Last Taken 08/16/19] zolpidem 10 mg PO QHS PRN PRN 07/09/17 [History Last Taken 10/13/18 21:00] coenzyme Q10 100 mg capsule 100 mg PO DAILY 08/02/18 [History Last Taken 10/14/18 08:00] levothyroxine 25 mcg tablet 50 mcg PO DAILY 08/02/18 [History Last Taken 08/16/19] metformin 1,000 mg PO BID #0 tab 10/16/18 [Rx Last Taken 08/15/19] nitroglycerin 0.4 mg SUBLINGUAL Q5M PRN #30 tab 10/16/18 [Rx Last Taken Unknown] metoprolol tartrate 100 mg tablet 100 mg PO BID 07/29/19 [History Last Taken 08/16/19] atorvastatin 40 mg tablet 40 mg PO QHS #90 tab 11/02/19 [Rx Last Taken Unknown] famotidine 40 mg tablet 40 mg PO QHS 11/02/19 [History Last Taken Unknown] ascorbic acid (vitamin C) 500 mg tablet 500 mg PO DAILY 05/16/20 [History Last Taken Unknown] zinc 50 mg tablet 50 mg PO DAILY 05/16/20 [History Last Taken Unknown] furosemide 20 mg tablet 20 mg PO DAILY #30 tab 07/06/20 [Rx Last Taken Unknown] clopidogrel 75 mg tablet 75 mg PO DAILY #90 tab 12/28/20 [Rx Last Taken Unknown] losartan 50 mg tablet 50 mg PO DAILY #30 tab 06/24/21 [Rx Last Taken Unknown] hydrocodone-acetaminophen 1 tab PO Q6H PRN PRN 3 Days #10 tablet 08/09/21 [Rx Last Taken Unknown] Allergy/AdvReac Type Severity Reaction Status Date / Time clindamycin Allergy Hives Verified 08/09/21 09:00 erythromycin base Allergy Hives Verified 08/09/21 09:00 nitrofurantoin Allergy Hives Verified 08/09/21 09:00 macrocrystalline [From Macrodantin] Sulfa (Sulfonamide Allergy Hives Verified 08/09/21 09:00 Antibiotics) sulfamethoxazole Allergy Hives Verified 08/09/21 09:00 [From Septra] trimethoprim [From Septra] Allergy Hives Verified 08/09/21 09:00 lisinopril AdvReac Intermediate Dry Verified 08/09/21 09:00 Hacking Cough Family History Grandmother CVA (cerebral vascular accident) Mother CAD (coronary artery disease) A-fib Heart disease Father Heart disease Hypertension Cancer Lung CA Sister Fibromyalgia Sister Myocardial infarction Diabetes CAD (coronary artery disease) Brother Myocardial infarction CAD (coronary artery disease) Diabetes Brother Cancer Asthma Aunt Colon cancer Uncle Colon cancer Diabetes Surgical History H/O prior ablation treatment (04/07/17) History of History of cardiac radiofrequency ablation (~04/07/17) History of hysterectomy History of left heart catheterization (08/16/19) History of total right knee replacement (TKR) (~06/2014) Stented coronary artery (10/15/18) Social History (Updated 08/09/21 @ 09:[address] Kieran Howell MD) household members: spouse Smoking Status: Never smoker alcohol intake: never substance use type: does not use caffeine: Yes Type: carbonated beverages and coffee what type of physical activity do you participate in: none seatbelt use: always do you feel safe at home: Yes ROS ROS ED Constitutional Constitutional ED: Denies chills, fever(s), subjective or sweats Eyes Eyes: Denies blurry vision or change in vision ENT ENT ED: Denies rhinorrhea or sore throat Cardiovascular Cardiovascular: Denies chest pain, palpitations or racing heartbeat Respiratory/Chest Respiratory/Chest: Denies dyspnea, dyspnea on exertion or sputum Gastrointestinal Gastrointestinal: Denies abdominal pain, constipation, diarrhea, nausea or vomiting Genitourinary Genitourinary ED: Denies dysuria, hematuria or urinary frequency Musculoskeletal Musculoskeletal: Reports back pain; Denies arthralgias, myalgias or neck pain Integumentary Denies rash Neurologic Neurologic: Denies paresthesias or weakness Endocrine Endocrinology: Denies polydipsia, polyphagia or polyuria Hematologic/Lymphatic Hematologic/Lymphatic: Denies easy bleeding or easy bruising EXAM Physical Exam Const Vital Signs: 08/09/21 09:00 Temperature 98.2 F Temperature Source Oral Pulse Rate 74 Respiratory Rate 18 Blood Pressure 130/85 H Blood Pressure Mean 100 Pulse Ox 100 Oxygen Delivery Method Room Air Positive well nourished, well developed and obese General Appearance ED: well developed, NAD and other Patient does have a limp with walking and walks slowly. ; Negative for pallor Nutritional Appearance: obese HEENT Reports moist mucous membranes HEENT Narrative: Ears normal. Nares patent. Negative for trauma or tenderness Eyes PERRL and EOMs intact bilaterally General Eye ED: Negative for pale conjunctiva or scleral icterus Neck no lymphadenopathy, supple and no JVD Resp normal respiratory effort and clear to auscultation bilaterally Cardio regular rate, regular rhythm, S1 normal heart sound, S2 normal heart sound and no murmurs GI normal to inspection, nondistended, normoactive bowel sounds, soft to palpation and non-tender Back/Spine normal to inspection; Negative for no thoracic nor lumbar tenderness Back/Spine Narrative: Pain outpatient over L4-S1 spinous process, central General Back: Negative for CVA tenderness Cervical Spine: Negative for cervical spine tenderness and Negative for paracervical muscle tenderness Thoracic Spine / Upper Back: Negative for paraspinal muscle tenderness Lumbar Spine / Lower Back: straight leg raise negative bilaterally Extremity normal to inspection and no clubbing, cyanosis or edema Extremity Narrative: DP and PT pulse are palpable. EHLs intact. General Extremety ED: Negative for edema or tenderness General Extremity: Negative for edema Neuro oriented x3 and no sensory deficits noted Neuro Narrative: Patient is gait observed. There is no foot drop. She is able to walk on heels and toes. She is able to perform a 1 legged squat on the right side and left side. She has normal sensation over L4 and L5 dermatome. She has normal perianal sensation. Sensorium / Orientation: alert Motor Exam: strength 5/5 throughout Deep Tendon Reflexes: Rt Patellar (L4): 2+, Lt Patellar (L4): 2+, Rt Ankle (S1): 2+ and Lt Ankle (S1): 2+ Deep Tendon Reflexes Back: Rt Patellar (L4): 2+, Lt Patellar (L4): 2+, Rt Ankle (S1): 2+ and Lt Ankle (S1): 2+ Plantar Reflex: Downgoing: bilateral (No clonus was appreciated) Psych mental status grossly normal Skin no rashes or lesions noted and no wounds General Skin Exam: Negative for jaundice or pallor MDM MDM MDM Narrative Medical decision making narrative: Based on history and physical exam patient has low back pain due to musculoskeletal etiology. There is no objective findings to suggest herniated disc as cause. Suspect patient has degenerative disc disease/osteoarthritis. She received a [place] tablet. Patient was reassessed at 0956. She states she feels markedly better. In light of her past medical history she was discharged prescription for [place]. She was told if certain signs or symptoms develop she needs to return. She understands. Discharge Plan Triage Chief Complaint: Back ED Provider: Kieran Howell Dx/Rx/DC Orders Clinical Impression: Low back pain Instructions: ED Back Sprain/Strain Prescriptions: New hydrocodone-acetaminophen [hydrocodone-acetaminophen] 1 TABLET tablet 1 tab PO Q6H PRN PRN (Reason: Pain) 3 Days Qty: 10 RF: 0 No Action levothyroxine 25 mcg tablet 50 mcg PO DAILY RF: 0 coenzyme Q10 100 mg capsule 100 mg PO DAILY RF: 0 famotidine 40 mg tablet 40 mg PO QHS RF: 0 atorvastatin 40 mg tablet 40 mg PO QHS Qty: 90 RF: 3 ascorbic acid (vitamin C) 500 mg tablet 500 mg PO DAILY RF: 0 zinc 50 mg tablet 50 mg PO DAILY RF: 0 clopidogrel 75 mg tablet 75 mg PO DAILY Qty: 90 RF: 3 aspirin 81 MG tablet,chewable 81 mg PO DAILY@0800 RF: 0 zolpidem 10 MG tablet 10 mg PO QHS PRN PRN (Reason: Insomnia) RF: 0 nitroglycerin 0.4 MG tablet 0.4 mg SUBLINGUAL Q5M PRN (Reason: Chest Pain) Qty: 30 RF: 0 metformin 1,000 mg tablet 1,000 mg PO BID Qty: 0 RF: 0 metoprolol tartrate 100 mg tablet 100 mg PO BID RF: 0 furosemide 20 mg tablet 20 mg PO DAILY Qty: 30 RF: 11 Hold Instructions: Severe dizziness losartan 50 mg tablet 50 mg PO DAILY Qty: 30 RF: 11 Primary Care Provider: Romulo Lewis Referrals: Romulo Lewis MD [Primary Care Provider] - Activity Restrictions/Additional Instructions: 1. Recommend applying ice 6-8 times a day 2. If you are unable to urinate or have loss of bowel control return to the emergency department immediately 3. If you have a foot drop, dragging one leg, return to the emergency departmen t 4. If your knee margarita going up or down steps return to the emergency department Disposition Disposition: Home, Self Care
== END 2021-08-09 10:13 | disposition home or self-care (01) ==
PROVIDERS: Emergency Provider Emergency Medicine; PCP Family Medicine; Visit Provider Emergency Medicine
DX: M54.50 Low back pain, unspecified (principal); I42.9 Cardiomyopathy, unspecified; E11.9 Type 2 diabetes mellitus without complications; I25.10 Atherosclerotic heart disease of native coronary artery without angina pectoris; E78.2 Mixed hyperlipidemia; I10 Essential (primary) hypertension; G47.33 Obstructive sleep apnea (adult) (pediatric); I25.2 Old myocardial infarction; E66.9 Obesity, unspecified; E03.9 Hypothyroidism, unspecified; Z95.5 Presence of coronary angioplasty implant and graft; Z79.82 Long term (current) use of aspirin; Z79.84 Long term (current) use of oral hypoglycemic drugs; Z79.899 Other long term (current) drug therapy
CPT/HCPCS: 99283

== ENCOUNTER 2021-11-01 06:31 | Outpatient (CLI) | payer MEDICARE, SELFPAY ==
[2018-10-15 15:37] VITALS: BMI 43.4
--- NOTE | 2021-11-01 09:42 | STRESSREP ---
Stress Test Report Date: 11-01-2021 Procedure: Pharmacologic stress nuclear imaging study Indications: Chest pain; CAD; status post PCI; SVT status post EPS/RFA; cardiomyopathy Consent: Per the patient Procedure: The patient underwent pharmacologic (Regadenoson 0.4mg ) evaluation with a peak heart rate of 136 beats per minute (85%predicted maximal heart rate) and a peak blood pressure of 146/80 mmHg. The baseline ECG demonstrated normal sinus rhythm; poor R wave progression. The peak pharmacologic ECG demonstrated no obvious ECG changes. There was a rare PVC during recovery. The patient noted chest discomfort in recovery with subsequent spontaneous resolution. The examination was discontinued secondary to completion of protocol. Impression: 1. Pharmacologic (Regadenoson) evaluation 2. Peak pharmacologic ECG with no obvious ECG changes. 3. There was a rare PVC during recovery. 4. Nuclear images pending Myocardial perfusion imaging study: Technique: The patient was injected with 15.0 millicuries of technetium 99m Cardiolite and subsequently rest SPECT Cardiolite nuclear imaging was obtained in the horizontal long, vertical long, and short axis views. The patient underwent pharmacologic (Regadenoson) evaluation with a peak heart rate of 136 beats per minute (85% percent predicted maximal heart rate) and a peak blood pressure of 146/80 mmHg. The patient was injected with 44.7 millicuries of technetium 99m Cardiolite and subsequently stress SPECT Cardiolite nuclear imaging was obtained in the horizontal long, vertical long, and short axis views. A gated Cardiolite study at peak stress was obtained. Interpretation: Rest and stress SPECT Cardiolite nuclear imaging status post realignment, normalization, and attenuation correction demonstrate the appearance of body motion during image acquisition and at rest the appearance of diminished myocardial perfusion/tracer uptake in portions of the mid to distal anterior and anteroapical segments which status post stress appears to improve/normalize. There is end systolic thickening and brightening. The gated Cardiolite study demonstrates myocardial thickening and inward wall motion. The reported LVEF is 50%. Impression: 1. Rest and stress SPECT current nuclear imaging demonstrate myocardial perfusion changes demonstrating body motion during image acquisition and resting myocardial perfusion changes which appear to improve and/or normalize following stress appearing compatible with shifting soft tissue attenuation/artifact with no myocardial perfusion changes considered diagnostic for associated stress-induced myocardial ischemia. 2. The gated Cardiolite study reports an LVEF of 50%. This note was generated with [employer] software. It may contain incorrect words, spelling, and punctuation that were not noted in checking the note before signing.
== END 2021-11-01 23:59 | disposition home or self-care (01) ==
LOC: CVS 06:32
PROVIDERS: PCP Family Medicine; Referring Provider Internal Medicine Cardiovascular Disease; Visit Provider Internal Medicine Cardiovascular Disease
DX: R06.00 Dyspnea, unspecified (principal); E78.2 Mixed hyperlipidemia; I25.10 Atherosclerotic heart disease of native coronary artery without angina pectoris; I10 Essential (primary) hypertension; Z95.5 Presence of coronary angioplasty implant and graft; Z98.890 Other specified postprocedural states
CPT/HCPCS: 78452; 93017; A9500; A4216; J2785

== ENCOUNTER → 2022-04-23 | Outpatient (CLI) | payer MEDICARE, SELFPAY ==
[2018-10-15 15:37] VITALS: BMI 43.4
--- NOTE | 2022-04-23 12:02 | BI_ITS ---
MAMMOGRAPHY - BILATERAL SCREENING REASON FOR EXAM: Female, 62 years old. Routine annual screening examination. PERTINENT HISTORY: Non-contributory. TECHNIQUE: Digital bilateral breast moody (3D mammographic acquisition) in the CC and MLO projections. 2-D mediolateral oblique (MLO) and craniocaudad (CC) views of both breasts were obtained. CAD: Full Field Digital Mammography with Computer Added Detection was performed. COMPARISON: Comparison is made with prior study dated 02/03/2017. FINDINGS: Breast Composition: There are scattered areas of fibroglandular density. There are no dominant masses or suspicious calcifications. Stable benign appearing axillary lymph nodes. No other significant abnormalities are identified. There has been no significant change since the prior study. BI/SCRN MAMM (CAD)W/MOODY BILAT IMPRESSION: Stable bilateral screening mammogram. Yearly follow-up mammogram recommended. (A) ASSESSMENT CATEGORY: BIRADS Category 2: Benign. A letter regarding these results will be sent to the patient by the facility within 30 days. Approximately 10% of breast cancers are not detected by mammography. A normal mammogram should not delay biopsy of a clinically suspicious abnormality. [id number] Electronically Signed: Tavo Wiggins MD at 13:04 EDT ,
== END | disposition home or self-care (01) ==
LOC: OPBI 12:01
PROVIDERS: PCP Family Medicine; Visit Provider Registered Nurse
DX: Z12.31 Encounter for screening mammogram for malignant neoplasm of breast (principal)
CPT/HCPCS: 77063; 77067

== ENCOUNTER → 2023-04-16 | Outpatient (CLI) | payer MEDICARE, SELFPAY ==
[2018-10-15 15:37] VITALS: BMI 43.4
--- NOTE | 2023-04-16 06:42 | ECHOCS_ITS ---
Reason For Study: CHEST PAIN Procedure This was a 2D Doppler, Color Flow transthoracic echocardiogram. The study was technically difficult. Exam performed in department. Left Ventricle Mild concentric left ventricular hypertrophy. Mildly dilated left ventricle. Moderate global left ventricular systolic dysfunction. The estimated ejection fraction is 30 %. Stage 1 diastolic dysfunction. Right Ventricle Normal RV size. Normal systolic function. Atria The left and right atria are normal. Hypermobile atrial septum. Mitral Valve Trivial mitral valve insufficiency. Tricuspid Valve Normal tricuspid valve. Mild (1+) tricuspid valve insufficiency. Right ventricular systolic pressure estimated to be 32 mmHg. Aortic Valve Trisinus/trileaflet aortic valve. Aortic sclerosis, no stenosis. Pulmonic Valve The pulmonic valve is not well visualized. Great Vessels Normal sized aortic root. Pericardium/Pleural No pericardial effusion. Medication Diluted definity 3ml given slow IV push to enhance endocardial definition. MMode/2D Measurements & Calculations LVIDd: 5.5 cm IVSd: 1.1 cm Ao root diam: 3.1 cm LVIDs: 3.9 cm LVPWd: 1.2 cm RVDd: 3.0 cm FS: 29.4 % LAV(MOD-bp): 24.4 ml LVAd ap4: 32.6 cm2 SV(MOD-sp4): 44.1 ml LAV(MOD-bp) Indexed: 11.5 ml/m2 LVLd ap4: 7.4 cm LAV(MOD-sp2): 27.6 ml EDV(MOD-sp4): 117.8 ml LAV(MOD-sp4): 21.8 ml EDV(sp4-el): 121.1 ml LVAs ap4: 23.3 cm2 LVLs ap4: 6.1 cm ESV(MOD-sp4): 73.7 ml ESV(sp4-el): 75.6 ml EF(MOD-sp4): 37.4 % EF(sp4-el): 37.6 % SV(sp4-el): 45.5 ml LA A4 area: 10.6 cm2 LA dimension(2D): 3.9 cm RA A4 area: 10.1 cm2 Time Measurements MV dec time: 0.21 sec Doppler Measurements & Calculations MV E max bandar: 47.3 cm/sec Lat Peak E' Bandar: 5.3 cm/sec Med Peak E' Bandar: 5.5 cm/sec MV A max bandar: 80.7 cm/sec E/E' lat: 9.0 E/E' med: 8.6 MV E/A: 0.59 Ao V2 max: 109.4 cm/sec LV V1 max: 64.3 cm/sec PA V2 max: 106.0 cm/sec Ao max P.8 mmHg LV V1 max P.7 mmHg TR max bandar: 267.4 cm/sec TR max P.6 mmHg ECHO/Echo Complete W/ Contrast Interpretation Summary The estimated ejection fraction is 30 %. Moderate global left ventricular systolic dysfunction. Mildly dilated left ventricle. Stage 1 diastolic dysfunction. Aortic sclerosis, no stenosis. The study was technically difficult. The study was technically difficult. Contrast injection was performed. Ordering Physician: Kimberly Roberts Referring Physician: MEHREEN LATIF Performed By: Pita Basurto RDCS
--- NOTE | 2023-04-16 14:14 | STRESSREP_ITS ---
Stress Test Report Date: 04/16/2023 Procedure: Pharmacologic stress nuclear imaging study Indications: Dyspnea Consent: Per the patient Procedure: The patient underwent pharmacologic (Regadenoson 0.4mg ) evaluation with a peak heart rate of 97 beats per minute (61%predicted maximal heart rate) and a peak blood pressure of 150/84 mmHg. The baseline ECG demonstrated sinus rhythm with nonspecific ST changes occasional PVC. The peak pharmacologic ECG demonstrated no diagnostic ischemic changes. Occasional PVCs noted at rest as well as during and postinfusion. There was no complaint of chest discomfort during pharmacologic infusion or recovery. The patient was injected with 15.0 millicuries of technetium 99m Cardiolite and subsequently rest SPECT Cardiolite nuclear imaging was obtained in the horizontal long, vertical long, and short axis views. The patient underwent pharmacologic (Regadenoson) evaluation. The patient was injected with 44.9 millicuries of technetium 99m Cardiolite and subsequently stress SPECT Cardiolite nuclear imaging was obtained in the horizontal long, vertical long, and short axis views. A gated Cardiolite study at peak stress was obtained. The examination was stopped secondary to completion of protocol. Rest and stress SPECT Cardiolite nuclear imaging status post realignment, and normalization demonstrate prominent GI uptake as well as soft tissue attenuation. There is reduced uptake in the anterior wall both at rest as well as postinfusion. This is suggestive of attenuation artifact. No reversible ischemia noted. The gated images show a reported LVEF of 43%. Impression: 1. Pharmacologic (Regadenoson) evaluation 2. Peak pharmacologic ECG with no diagnostic ischemic changes. 3. Occasional PVCs noted. 5. [Rest and stress SPECT Cardiolite nuclear imaging demonstrate prominent GI and soft tissue attenuation artifacts. No reversible ischemia noted. 6. The gated Cardiolite study reports an LVEF of 43%. This note was generated with [employer] software. It may contain incorrect words, spelling, and punctuation that were not noted in checking the note before signing.
== END | disposition home or self-care (01) ==
LOC: CVS 06:41
PROVIDERS: PCP Family Medicine; Referring Provider Internal Medicine Cardiovascular Disease; Visit Provider Internal Medicine Cardiovascular Disease
DX: I25.10 Atherosclerotic heart disease of native coronary artery without angina pectoris (principal); R07.9 Chest pain, unspecified; R06.02 Shortness of breath
CPT/HCPCS: 78452; 93017; 93306; A9500; Q9957; A4216; C8929; J2785

== ENCOUNTER 2023-04-18 17:29 | Emergency (ER) | payer MEDICARE, SELFPAY ==
[2018-10-15 15:37] VITALS: BMI 43.4
[2023-04-18 17:30] VITALS: PULSE 79; RESP 19; TEMP 36.3; O2SAT 97; BMI 43.2
[2023-04-18 17:37] VITALS: BP 132/91; PULSE 81; RESP 20; O2SAT 98
[2023-04-18 18:02] VITALS: O2SAT 98
--- NOTE | 2023-04-18 18:05 | RAD_ITS ---
STUDY: X-RAY CHEST REASON FOR EXAM: Female, 63 years old. chest pain TECHNIQUE: Single AP portable view of the chest. COMPARISON: 01/02/2020 FINDINGS: The lungs are clear and expanded. Elevated right hemidiaphragm which is unchanged. Normal size heart. Normal mediastinum and renetta. Normal visualized pulmonary arteries. Normal visualized aortic arch and descending thoracic aorta. Normal visualized thoracic spine. Normal visualized ribs, clavicles, and shoulders. There is no demonstrated abnormality of the visualized soft tissue structures of the upper abdomen. RAD/Chest 1 View (Portable) IMPRESSION: No active disease. Electronically Signed: Zeyad Bedoya MD at 18:28 EDT ,
[2023-04-18 18:13] LABS: Absolute Lymphocyte Count 3.25 X10^3/uL (0.83-4.51); Absolute Neutrophil Count 5.1 X10^3/uL (2.0-7.7); Basophil# 0.05 X10^3/uL; Basophil% 0.5 % (0-1); Eosinophil# 0.09 X10^3/uL; Hematocrit 41.5 % (37-47); Hemoglobin 13.2 g/dL (12.0-15.0); Lymphocyte # 3.25 X10^3/ul (0.83-4.51); Lymphocyte % 35.6 % (19-41); Mean Corp Hgb Conc 31.8 g/dL (32-36); Mean Corpuscular Hgb 27.4 pg (27.0-32.0); Mean Corpuscular Volume 86.1 fL (81-99); Mean Platelet Vol. 9.4 fl (6.2-12.0); Monocyte# 0.64 X10^3/uL; NRBC Flagged by Analyzer 0 % (0-5); Neutrophil # 5.07 X10^3/uL (2.7-7.7); Neutrophil % 55.5 % (47-70); Platelet Count 283 K/mm3 (150-450); RBC Distribution Width CV 15.1 % (11.6-14.6); RBC Distribution Width SD 47.6 fl (35.1-43.9); Red Blood Count 4.82 M/mm3 (4.2-5.4); White Blood Count 9.1 K/mm3 (4.4-11.0)
[2023-04-18 18:35] LABS: Anion Gap 7 (5-15); BUN 18 mg/dL (7-18); Calcium,Total 9.3 mg/dL (8.5-10.1); Chloride 102 mmol/L (98-107); Creatinine, Serum 1.38 mg/dL (0.55-1.02); EST Glomerular Filtration Rate 41 mL/min (>60); Est Glom Filt Rate - Afr Amer 50 mL/min (>60); Estimated Creatinine Clearance 36.03 ml/min; Glucose 171 mg/dL (74-106); Potassium 4.1 mmol/L (3.5-5.1); Sodium Level 137 mmol/L (136-145); Troponin-I HS 8 pg/mL (3.0-54.0)
[2023-04-18 18:38] LABS: BNP,B-Type NATRIURETIC PEPTIDE 17.5 pg/mL (0-100)
[2023-04-18 21:23] LABS: Troponin-I HS 9 pg/mL (3.0-54.0)
--- NOTE | 2023-04-18 21:30 | EX.ED.DYSGE1 ---
HPI History of Present Illness Chief Complaint: Chest Pain Informant: patient Narrative Narrative: Patient presents secondary to shortness of breath. She has a history of 1 cardiac stent. For the past 3 weeks or so she has been noticing shortness of breath with some very mild chest pressure. She had a stress test 2 days ago as well as an echocardiogram. There is no evidence of inducible ischemia. EF is down to 30 to 40% and patient is therefore going to be scheduled for a cath. Patient states today she still felt short of breath and had some slight numbness in her arm so she called 911. Patient's tells nursing staff that they are hoping the patient can just be admitted and have the heart cath done while she is here. Patient is not having any chest pain at this time. [facility] Medical History Atherosclerotic heart disease of koi coronary artery without angina pectoris Cardiomyopathy Chest pain Diabetes mellitus Essential hypertension GERD (gastroesophageal reflux disease) HTN (hypertension) Hypothyroidism Mixed hyperlipidemia NSTEMI (non-ST elevated myocardial infarction) Obesity, morbid, BMI 40.0-49.9 Obstructive sleep apnea HUSSEIN (obstructive sleep apnea) Supraventricular tachycardia Home Medications aspirin 81 mg chewable tablet 81 mg PO DAILY@0800 09/11/15 [History Last Taken 08/16/19] coenzyme Q10 100 mg capsule 100 mg PO DAILY 08/02/18 [History Last Taken 10/14/18 08:00] metformin 1,000 mg tablet 1,000 mg PO BID #0 tabs 10/16/18 [Rx Last Taken 08/15/19] metoprolol tartrate 100 mg tablet 100 mg PO BID 07/29/19 [History Last Taken 08/16/19] atorvastatin 40 mg tablet 40 mg PO QHS #90 tabs 11/02/19 [Rx Last Taken Unknown] famotidine 40 mg tablet 40 mg PO QHS 11/02/19 [History Last Taken Unknown] ascorbic acid (vitamin C) 500 mg tablet 500 mg PO DAILY 05/16/20 [History Last Taken Unknown] zinc 50 mg tablet 50 mg PO DAILY 05/16/20 [History Last Taken Unknown] clopidogrel 75 mg tablet 75 mg PO DAILY #90 tabs 12/28/20 [Rx Last Taken Unknown] levothyroxine 50 mcg tablet 50 mcg PO DAILY 10/21/21 [History Last Taken Unknown] losartan 50 mg tablet 50 mg PO DAILY #90 tabs 06/23/22 [Rx Last Taken Unknown] nitroglycerin 0.4 mg sublingual tablet 0.4 mg sublingual Q5M PRN Chest Pain #25 tabs 03/27/23 [Rx Last Taken Unknown] furosemide 40 mg tablet (Lasix) 40 mg PO DAILY #30 tabs 04/16/23 [Rx Last Taken Unknown] Allergy/AdvReac Type Severity Reaction Status Date / Time clindamycin Allergy Hives Verified 03/27/23 13:07 erythromycin base Allergy Hives Verified 03/27/23 13:07 nitrofurantoin Allergy Hives Verified 03/27/23 13:07 macrocrystalline [From Macrodantin] Sulfa (Sulfonamide Allergy Hives Verified 03/27/23 13:07 Antibiotics) sulfamethoxazole Allergy Hives Verified 03/27/23 13:07 [From Septra] trimethoprim [From Septra] Allergy Hives Verified 03/27/23 13:07 lisinopril AdvReac Intermediate Dry Verified 03/27/23 13:07 Hacking Cough Family History Grandmother CVA (cerebral vascular accident) Mother CAD (coronary artery disease) A-fib Heart disease Father Heart disease Hypertension Cancer Lung CA Sister Fibromyalgia Sister Myocardial infarction Diabetes CAD (coronary artery disease) Brother Myocardial infarction CAD (coronary artery disease) Diabetes Brother Cancer Asthma Aunt Colon cancer Uncle Colon cancer Diabetes Surgical History H/O prior ablation treatment (04/07/17) History of History of cardiac radiofrequency ablation (~04/07/17) History of hysterectomy History of left heart catheterization (08/16/19) History of total right knee replacement (TKR) (~06/2014) Stented coronary artery (10/15/18) Social History household members: spouse Smoking Status: Never smoker alcohol intake: never substance use type: does not use caffeine: Yes Type: carbonated beverages and coffee what type of physical activity do you participate in: none seatbelt use: always do you feel safe at home: Yes ROS ROS ED Constitutional Constitutional ED: Denies chills or fever(s) Eyes Eyes: Denies change in vision ENT ENT ED: Denies rhinorrhea or sore throat Cardiovascular Cardiovascular: Reports chest pain; Denies palpitations Respiratory/Chest Respiratory/Chest: Reports dyspnea; Denies cough Gastrointestinal Gastrointestinal: Denies abdominal pain, nausea or vomiting Genitourinary Genitourinary ED: Denies dysuria Musculoskeletal Musculoskeletal: Denies back pain or extremity pain Integumentary Denies Abrasions or rash Neurologic Neurologic: Denies headache(s) or weakness Allergic/Immunologic Allergic/Immunologic ED: Denies lip swelling or urticaria EXAM Physical Exam Const Vital Signs: 04/18/23 17:30 04/18/23 17:36 04/18/23 17:37 Temperature 97.3 F L Temperature Source Temporal Pulse Rate 79 81 Respiratory Rate 19 H 20 H Respiratory Effort Normal Non-Labored Blood Pressure 132/91 H Blood Pressure Mean 104 Pulse Ox 97 98 Oxygen Delivery Method Room Air Room Air 04/18/23 18:02 04/18/23 21:45 Temperature Temperature Source Pulse Rate 85 Respiratory Rate 18 Respiratory Effort Blood Pressure Blood Pressure Mean Pulse Ox 98 98 Oxygen Delivery Method Room Air Positive well nourished and well developed General Appearance ED: well developed HEENT Reports moist mucous membranes Eyes EOMs intact bilaterally Neck no lymphadenopathy Chest Wall inspection of chest normal and palpation of chest normal Resp normal respiratory effort and clear to auscultation bilaterally Cardio regular rate and regular rhythm GI non-tender Palpation: soft Extremity normal to inspection Neuro oriented x3 and no sensory deficits noted Motor Exam: strength 5/5 throughout Psych mental status grossly normal Skin no rashes or lesions noted MDM MDM MDM Narrative Medical decision making narrative: I did review the patient's recent stress test as well as echocardiogram. Stress test revealed no diagnostic ischemic changes. EF was estimated to be 43% on the study. Echocardiogram performed the same date reveals estimated ejection fraction of 30%. There is moderate global left ventricular systolic dysfunction. Patient placed on clinical research monitor. EKG obtained to evaluate for cardiac arrhythmia/ischemia. Chest x-ray obtained to evaluate for acute lung pathology, cardiac size, or mediastinal abnormality. Labwork obtained to evaluate for leukocytosis, anemia, and electrolyte derangement. History & Record Review Discussion w/independent historian: EMS personnel, Patient and Family Additional record(s) reviewed:: Prior outpatient record, Prior ED visit and Prior labs Lab Data Attestation: I reviewed the patient's lab results. Labs: Laboratory Results - last 24 hr 04/18/23 04/18/23 17:44 20:50 WBC 9.1 RBC 4.82 Hgb 13.2 Hct 41.5 MCV 86.1 MCH 27.4 MCHC 31.8 L RDW Std Deviation 47.6 H RDW Coeff of Jhonatan 15.1 H Plt Count 283 MPV 9.4 Immature Gran % (Auto) 0.400 Neut % (Auto) 55.5 Lymph % (Auto) 35.6 [place] % (Auto) 7.0 Eos % (Auto) 1.0 Baso % (Auto) 0.5 Absolute Neuts (auto) 5.1 Absolute Lymphs (auto) 3.25 Nucleated RBC % 0 Sodium 137 Potassium 4.1 Chloride 102 Carbon Dioxide 28.0 Anion Gap 7 BUN 18 Creatinine 1.38 H Estim Creat Clear Calc 36.03 Est GFR (MDRD) Af Amer 50 L Est GFR (MDRD) Non-Af 41 L BUN/Creatinine Ratio 13.0 Glucose 171 H Calcium 9.3 Troponin I High Sens 8 9 B-Natriuretic Peptide 17.5 Radiography Chest X-Ray - ED: 1 View, Read by ED Physician, Chronic Changes and No Infiltrates Diagnostic Testing: Clinical Impression(s) from Imaging Studies Chest X-Ray 04/18/23 18:05 IMPRESSION: No active disease. Electronically Signed: Zeyad Bedoya MD at 18:28 EDT , EKG Initial EKG: Attestation: I personally reviewed and interpreted this EKG as follows: Interpretation: Sinus Rhythm (Sinus at 83 with no acute ischemia.) Treatment and Re-Evaluation :: CBC was normal white count 9.1 with a hemoglobin of 13.2. Platelet count is normal at 283,000. Chemistry studies remarkable only for creatinine 1.38. This appears consistent with her baseline. Glucose is 171. BNP is normal at 17.5. Troponin is normal at 8. EKG reveals no evidence of acute ischemia. Portable chest x-ray per my interpretation was chronic changes with no focal infiltrate. Radiology interpretation is reviewed and agrees. Given the family's concerns, I did speak with Dr. Sarabia, on-call for cardiology. He does not feel the patient needs to be emergently admitted to the hospital for a cath. He did request a second troponin and if that is normal she can be discharged home and the cath will be scheduled as an outpatient. Repeat troponin is 9 and patient therefore discharged to continue her current medication regimen. I anticipate she will be called earlier this week to schedule her heart cath. Discharge Plan Triage Chief Complaint: Chest Pain ED Provider: Karen Palacios Dx/Rx/DC Orders Clinical Impression: Paresthesias, Dyspnea Instructions: ED Dyspnea, ED Paraesthesias Prescriptions: No Action coenzyme Q10 100 mg capsule 100 mg PO DAILY famotidine 40 mg tablet 40 mg PO QHS atorvastatin 40 mg tablet 40 mg PO QHS Qty: 90 3RF ascorbic acid (vitamin C) 500 mg tablet 500 mg PO DAILY zinc 50 mg tablet 50 mg PO DAILY clopidogrel 75 mg tablet 75 mg PO DAILY Qty: 90 3RF levothyroxine 50 mcg tablet 50 mcg PO DAILY nitroglycerin 0.4 mg tablet, sublingual 0.4 mg SUBLINGUAL Q5M PRN (Reason: Chest Pain) Qty: 25 0RF furosemide [Lasix] 40 mg tablet 40 mg PO DAILY Qty: 30 6RF aspirin 81 MG tablet,chewable 81 mg PO DAILY@0800 metformin 1,000 mg tablet 1,000 mg PO BID Qty: 0 0RF metoprolol tartrate 100 mg tablet 100 mg PO BID losartan 50 mg tablet 50 mg PO DAILY Qty: 90 3RF Primary Care Provider: Romulo Lewis Referrals: Esdras Sarabia MD [Med Staff - Active Staff] - 3-5 Days Romulo Lewis MD [Primary Care Provider] - Activity Restrictions/Additional Instructions: Her case was discussed with Dr. Sarabia. He is planning to schedule your heart cath as an outpatient. If you do not hear from the office by Thursday please call them to check on when this will be scheduled. Disposition Disposition: Home, Self Care Discharge Date/Time: 04/18/23 21:45
[2023-04-18 21:45] VITALS: PULSE 85; RESP 18; O2SAT 98
== END 2023-04-18 21:45 | disposition home or self-care (01) ==
PROVIDERS: Emergency Provider Emergency Medicine; PCP Family Medicine; Visit Provider Emergency Medicine
DX: R06.02 Shortness of breath (principal); E11.9 Type 2 diabetes mellitus without complications; R20.2 Paresthesia of skin; I25.10 Atherosclerotic heart disease of native coronary artery without angina pectoris; I10 Essential (primary) hypertension; Z95.5 Presence of coronary angioplasty implant and graft; E78.2 Mixed hyperlipidemia; R07.9 Chest pain, unspecified
CPT/HCPCS: 71045; 80048; 83880; 84484; 85025; 93005; 99285

== ENCOUNTER → 2023-04-30 | Outpatient (CLI) | payer MEDICARE, SELFPAY ==
[2018-10-15 15:37] VITALS: BMI 43.4
== END | disposition home or self-care (01) ==
LOC: PSN 09:38
PROVIDERS: PCP Family Medicine; Referring Provider Internal Medicine Cardiovascular Disease; Visit Provider Internal Medicine Cardiovascular Disease
DX: R06.00 Dyspnea, unspecified (principal); R94.39 Abnormal result of other cardiovascular function study; R00.2 Palpitations; I25.10 Atherosclerotic heart disease of native coronary artery without angina pectoris; Z86.79 Personal history of other diseases of the circulatory system
CPT/HCPCS: 93225; 93226

== ENCOUNTER 2023-05-04 08:17 | Day surgery (SDC) | payer MEDICARE, SELFPAY ==
[2018-10-15 15:37] VITALS: BMI 43.4
[2023-05-01 09:01] VITALS: BMI 42.9
--- NOTE | 2023-05-04 10:06 | DCINST_ITS ---
Discharge Instructions Diet Discharge Diet: Low fat / Low cholesterol Activity May resume sexual activity in: No Restrictions Dressing / Incision Call your doctor if your incision/area has: Continuous Slow Oozing, Sudden Increased Bleeding, Increased Pain/ Swelling, Increased Redness, Foul Smelling Discharge and Swelling at the incision site Call your doctor if you observe: Fever of 101 or Higher, Coldness, Increased Pain, Numbness or Tingling and Change in Color Follow Up Care Please Follow Up With: Esdras Sarabia MD When: 2 weeks Test Results: Test results from this visit will be discussed in further detail at your follow- up appointment, if applicable. Discharge Plan Admission Attending Provider: Esrdas Sarabia Primary Care Provider: Romulo Lewis Discharge Orders/Prescriptions Prescriptions: Continued coenzyme Q10 100 mg capsule 100 mg PO DAILY atorvastatin 40 mg tablet 40 mg PO QHS Qty: 90 3RF ascorbic acid (vitamin C) 500 mg tablet 500 mg PO DAILY zinc 50 mg tablet 50 mg PO DAILY clopidogrel 75 mg tablet 75 mg PO DAILY Qty: 90 3RF levothyroxine 50 mcg tablet 50 mcg PO DAILY nitroglycerin 0.4 mg tablet, sublingual 0.4 mg SUBLINGUAL Q5M PRN (Reason: Chest Pain) Qty: 25 0RF furosemide [Lasix] 40 mg tablet 40 mg PO DAILY Qty: 30 6RF omeprazole 20 mg capsule,delayed release(DR/EC) 20 mg PO DAILY Jardiance 10 mg tablet 10 mg PO DAILY Qty: 30 11RF aspirin 81 MG tablet,chewable 81 mg PO DAILY@0800 metoprolol tartrate 100 mg tablet 100 mg PO BID losartan 50 mg tablet 50 mg PO DAILY Qty: 90 3RF Held metformin 1,000 mg tablet 1,000 mg PO BID Qty: 0 0RF Hold Instructions: Resume on 05/07/23. Referrals / Follow Up: Romulo Lewis MD [Primary Care Provider] - Disposition Disposition (needs filled in before D/C Order can be placed): Home, Self Care
--- NOTE | 2023-05-04 10:15 | EKG12_ITS ---
Test Reason : POST PCI Blood Pressure : / mmHG Vent. Rate : 083 BPM Atrial Rate : 083 BPM P-R Int : 142 ms QRS Dur : 086 ms QT Int : 390 ms P-R-T Axes : 018 -22 056 degrees QTc Int : 458 ms Sinus rhythm with Premature atrial complexes Low voltage QRS Nonspecific T wave abnormality Abnormal ECG When compared with ECG of 18-APR-2023 17:43, No significant change was found Confirmed by CARMEN SANDERSON, NICOLA ([id number]), editor news MARIANA JACOBS ([id number]) on 05/15/2023 10:10:30 AM Referred By: Esdras Sarabia Confirmed By:NCIOLA MORALES MD
--- NOTE | 2023-05-04 10:26 | CRPHASE1_ITS ---
Patient Communication Patient Information Former Patient:: Phase I Guide to Cardiac Rehab Given to Patient:: Yes Cardiac Rehab Facility Choice List Given to Patient:: Yes Communication to Cardiac Rehab Choice Program [facility]:: Communication Given to CR Mill Worker:: Xuan Mon Cardiac Rehabilitation Info Program Information Cardiac Rehabilitation Program Information: Cardiac Rehab The cardiac rehab team at [facility] consists of highly skilled exercise physiologists, nurses, respiratory therapists and physicians working together with you. Our purpose is to help you have a full recovery and achieve the goals you set for yourself. Over the years many of our patients have returned to activities they assumed they would never do again! We can help restore your confidence and motivation to make lifestyle changes that can have a significant impact on your health and quality of life! We can help answer questions and concerns you may have about exercise, lifestyle, medications, diet, stress and anxiety which are common following a hospitalization. WE monitor ECG and vital signs during exercise and discuss your progress with you and report to your physician(s). Cardiac Rehab is proven to help reduce readmissions, improve functional capacity and lower recurrence of problems with your heart. Our Cardiac Rehab program is Certified by the [place] [employer] Pulmonary [employer] (AACVPR) and Accredited by the [place] [employer] through our [facility]. You can contact us at . We invite you to call us with your questions or to get started in our program. If you have other questions or concerns be sure to ask your physician/provider during your follow-up visit. WE look forward to seeing you!
--- NOTE | 2023-05-04 10:27 | CRPH1.INSTRU ---
General Education Discussed with Patient CAD and cardiac anatomy and function:: Patient communicates acknowledgment Explanation of diagnoses and procedures:: Patient communicates acknowledgment Sign/Symptoms of AR:: Patient communicates acknowledgment Antiplatelet therapy: Patient communicates acknowledgment Proper use of NTG-SL: Patient communicates acknowledgment Compliance of all prescribed medications: Patient communicates acknowledgment Overweight/Obesity Risk Factors Patient Overweight/Obesity Risk Factors Are:: Obesity - > or = 30 Response Code Overweight/Obesity:: Patient communicates acknowledgment Hypertension Recommendations Recommendations Include:: Maintain BP <130/85 Response Code Hypertension:: Patient communicates acknowledgment Diabetes Response Code Diabetes:: Patient communicates acknowledgment
--- NOTE | 2023-05-04 10:32 | CL.I_ITS ---
Patient Name: YUE IBRAHIM Study Date: 05/04/2023 Performing: Esdras Sarabia MD Ht: 64 inches 162.56 cm : 1960 Wt: 250 lbs 113.4 kg Age: 63 Gender: female BSA: 2.15 PROCEDURE(S) PERFORMED DC01-(02472)LHC/COR/LV IC12-([id number]/[id number])JULIA W/WO PTCA, SINGLE CORONARY ARTERY CLINICAL PROFILE AND CO-MORBIDITIES Indications: Stable Known CAD Heart Failure: None CAD Presentations: Other: Dyspnea on exertion likely angina equivalent CONCLUSIONS 80% Mid LCX Stent to Prox RPLV patent, Mid RPLV 50% Successful JULIA Mid LCX using Resolute [place] 2.5x8 mm RECOMMENDATIONS ASA Indefinitley Plavix for at least 12 months DESCRIPTION OF PROCEDURE The patient arrived to the procedure lab. The risks and benefits of the procedure as well as a full description of our services here and lack of surgical backup were fully explained to the patient and/or their significant other prior to the catheterization. The Timeout was completed, verifying the correct patient and procedure. The patient's procedural site was prepped and draped in the usual fashion. Local anesthetic was given subcutaneously to right radial region with Lidocaine 2%. Using a modified Seldinger technique, arterial access was obtained via the right radial artery, a 6Fr sheath was inserted.. Left Coronary Artery selective angiography was performed in multiple views using a 5 Fr. 4.0 [place] catheter. Right Coronary Artery selective angiography was then performed in multiple views using a 5 Fr. 4.0 [place] catheter. Left Ventriculography was performed in DIETRICH projection using a 5 Fr. Pigtail catheter. LV to AO pullback pressures were then recordedThe images were reviewed and options discussed. A decision was then made to proceed with an Intervention, IVUS or other adjunct procedure. XB 3.0 Guide catheter was inserted and engaged into the LCA. Runthrough Guide wire was advanced to the Circumflex. 2.5 x 12 Abdiel Drug Eluting stent was inserted. Angiogram performed pre stent deployment. Drug Eluting stent was removed intact, failed to cross lesion 2.5 x 8 [place] Drug Eluting stent was inserted. Drug Eluting stent was advanced across the lesion in the circumflex, mid. Angiogram performed post stent deployment. 2.5 x 8 NC Emerge. Balloon catheter was inserted post stent. Angiogram performed post balloon dilatation. The arterial sheath was pulled and a TR Band was applied for hemostasis CORONARY ANGIOGRAPHY DOMINANCE: Right Dominant LEFT HEART ASSESSMENT Left Ventricular Ejection Fraction: by LV Gram 40 % LVEDP: 141 mmHg LEFT ANTERIOR DESCENDING ARTERY: LAD: Tubular 20% Mid lesion in LAD CIRCUMFLEX ARTERY: CIRCUMFLEX: Tubular 80% Mid lesion in Circumflex RIGHT CORONARY ARTERY: RCA: Tubular 30% Proximal lesion in RCA Tubular 30% Distal lesion in RCA RPLS: Tubular 50% Mid lesion in RPL1 INTERVENTION INFORMATION LESION SITE: Circumflex (Mid) Lesion Complexity: Non-High/Non-C, lesion length: 6 mm Pre Stenosis: 80 % Pre intervention MARISOL flow: 3 PROCEDURE: Drug Eluting Stent with post dilatation Post Stenosis: 0 % Post intervention MARISOL flow: 3 Lesion Devices: Hoverink 6 Fr XB3.0 100cm Guide Catheter Terumo .014 180cm Runthrough Extra Floppy straight Medtronic Resolute [place] RX JULIA 2.5x08 Amauri Sci NC EMERGE MR 2.50x08 BALLOON COMPLICATIONS No Complications PROCEDURE MEDICATIONS Fentanyl 50 mcg IV Versed 1 mg IV Versed 1 mg IV Fentanyl 25 mcg IV Oxygen: 2 L/min via nasal cannula Heparin given IA 05/04/2023 09:24:23 Heparin 6000 unit(s) IV 05/04/2023 09:35:43 Heparin 2000 unit(s) IV 05/04/2023 10:07:53 Nitro 200 mcg IA 05/04/2023 09:37:45 Nitro 200 mcg IC 05/04/2023 09:52:51 Plavix 300 mg PO 05/04/2023 10:04:27 Verapamil 2.5mg, Ntg 200mcgs, 2000 units of Heparin given IA 05/04/2023 09:24:23 SUMMARY OF HEMODYNAMIC DATA Time AIR REST ECG 08:42:15 AO 147/94 (117) SA 09:30:02 LV 163/16, 30 09:36:39 LV 161/7, 17 09:36:49 LV 143/9, 14 09:38:14 LVp 136/15, 21 09:39:21 AOp 160/95 (126) 09:39:28 Signed By Esdras Sarabia MD On 05/04/2023 10:31:55 Esdras Sarabia MD
[2023-05-05 08:15] LABS: ACT Activated Clotting Time 281
[2023-05-05 08:17] LABS: ACT Activated Clotting Time 239 sec (74-137)
== END 2023-05-04 16:53 | disposition home or self-care (01) ==
PROVIDERS: PCP Family Medicine; Referring Provider Internal Medicine Cardiovascular Disease; Visit Provider Internal Medicine Cardiovascular Disease
DX: I25.10 Atherosclerotic heart disease of native coronary artery without angina pectoris (principal); I42.8 Other cardiomyopathies; E66.01 Morbid (severe) obesity due to excess calories; E11.9 Type 2 diabetes mellitus without complications; R06.09 Other forms of dyspnea; Z95.5 Presence of coronary angioplasty implant and graft; I10 Essential (primary) hypertension; G47.33 Obstructive sleep apnea (adult) (pediatric); Z79.82 Long term (current) use of aspirin; Z79.899 Other long term (current) drug therapy; Z79.890 Hormone replacement therapy; E03.9 Hypothyroidism, unspecified; E78.2 Mixed hyperlipidemia; Z79.02 Long term (current) use of antithrombotics/antiplatelets; Z86.79 Personal history of other diseases of the circulatory system
CPT/HCPCS: 85347; 92928; 93005; 93458; 99152; 99153; J7040; Q9967; A4216; C1769; C1887; C1894; C9600

== ENCOUNTER 2023-05-08 11:44 | Emergency (ER) | payer MEDICARE, SELFPAY ==
[2018-10-15 15:37] VITALS: BMI 43.4
[2023-05-08 11:48] VITALS: BP 143/66; PULSE 69; RESP 11; TEMP 36.2; O2SAT 98; BMI 44.6
[2023-05-08 11:51] VITALS: BP 143/66; PULSE 65; RESP 17; TEMP 36.2; O2SAT 99
[2023-05-08 12:11] LABS: Bedside Glucose 190 mg/dL (74-106)
[2023-05-08 12:16] VITALS: BP 128/70; PULSE 68; RESP 10; O2SAT 97
--- NOTE | 2023-05-08 12:24 | EKG12_ITS ---
Test Reason : PALPATATIONS Blood Pressure : / mmHG Vent. Rate : 061 BPM Atrial Rate : 061 BPM P-R Int : 148 ms QRS Dur : 086 ms QT Int : 434 ms P-R-T Axes : 017 -24 086 degrees QTc Int : 436 ms Normal sinus rhythm Low voltage QRS Nonspecific ST and T wave abnormality Abnormal ECG Confirmed by HERBERT SANDERSON, RICKIE ([id number]), pictures editor PADMINI GARDUNO ([id number]) on 05/11/2023 12:45:29 PM Referred By: Confirmed By:SHAWNEE GODINEZ MD
[2023-05-08 12:44] LABS: Absolute Lymphocyte Count 2.76 X10^3/uL (0.83-4.51); Basophil# 0.05 X10^3/uL; Basophil% 0.6 % (0-1); Eosinophil# 0.09 X10^3/uL; Eosinophils% 1.1 % (0-5); Hematocrit 37.8 % (37-47); Hemoglobin 12.2 g/dL (12.0-15.0); Lymphocyte # 2.76 X10^3/ul (0.83-4.51); Lymphocyte % 32.8 % (19-41); Mean Corp Hgb Conc 32.3 g/dL (32-36); Mean Corpuscular Hgb 27.5 pg (27.0-32.0); Mean Corpuscular Volume 85.3 fL (81-99); Mean Platelet Vol. 9.1 fl (6.2-12.0); Monocyte# 0.52 X10^3/uL; Monocyte% 6.2 % (0-10); NRBC Flagged by Analyzer 0 % (0-5); Neutrophil # 4.95 X10^3/uL (2.7-7.7); Neutrophil % 58.7 % (47-70); Platelet Count 240 K/mm3 (150-450); RBC Distribution Width CV 15.3 % (11.6-14.6); RBC Distribution Width SD 47.9 fl (35.1-43.9); Red Blood Count 4.43 M/mm3 (4.2-5.4); White Blood Count 8.4 K/mm3 (4.4-11.0)
[2023-05-08 12:56] LABS: Anion Gap 6 (5-15); BUN 13 mg/dL (7-18); BUN/Creat Ratio 13.2 RATIO (10-20); Calcium,Total 9.1 mg/dL (8.5-10.1); Chloride 105 mmol/L (98-107); Creatinine, Serum 0.98 mg/dL (0.55-1.02); EST Glomerular Filtration Rate 61 mL/min (>60); Est Glom Filt Rate - Afr Amer 73 mL/min (>60); Estimated Creatinine Clearance 50.74 ml/min; Glucose 195 mg/dL (74-106); Potassium 5.3 mmol/L (3.5-5.1); Sodium Level 138 mmol/L (136-145)
--- NOTE | 2023-05-08 13:55 | RAD_ITS ---
STUDY: X-RAY CHEST REASON FOR EXAM: Female, 63 years old. Dyspnea TECHNIQUE: PA and lateral views of the chest. COMPARISON: Comparison is made with prior study April 18, 2023. FINDINGS: Stable elevation of the anterior aspect of the right hemidiaphragm. EKG electrodes are seen. The lungs are clear and expanded. There is no demonstrated pleural abnormality. Normal size heart. Normal mediastinum and renetta. Normal visualized pulmonary arteries. There is atherosclerotic tortuosity of the aortic arch and descending thoracic aorta. There are diffuse degenerative changes of the visualized thoracic spine. Normal visualized ribs, clavicles, and shoulders. There is no demonstrated abnormality of the visualized soft tissue structures of the upper abdomen. RAD/Chest PA and Lateral IMPRESSION: Stable elevation of the anterior aspect of the right hemidiaphragm. No acute abnormality is seen. Electronically Signed: Tavo Wiggins MD at 14:11 EDT ,
[2023-05-08 14:13] VITALS: BP 153/90; PULSE 65; RESP 23; O2SAT 97
--- NOTE | 2023-05-08 15:20 | EX.ED.DYSGE1 ---
HPI History of Present Illness Chief Complaint: Palpitations Detail of Chief Complaint: Palpitations, fast heart rate and concern for diabetes Informant: patient Onset/Context/Timing Onset: Today and Hours Context: Sudden Onset Timing: Intermittent Quality: Fast heart rate, approximately 100 Location: Chest Current Severity: Gone Maximum Severity: Moderate Worsened by: Nothing Relieved by: Nothing Associated Symptoms Associated Symptoms: None Narrative Narrative: Luh is a 63-year-old woman who had a recent cardiac catheterization with deployment of stent. Her anginal equivalent symptoms was dyspnea on exertion. She denies dyspnea or dyspnea on exertion. She denies orthopnea or PND. She states this morning upon awakening her heart rate was fast and when she checked it was 100. She states her heart rate is normally 60. She did not feel short of breath when her heart rate was 100. She did not have nausea and had no vomiting. She did not break out in a cold sweat. She denied any tightness or heaviness in her chest. She denies black or maroon-colored stool. She denies orthostatic symptoms. She denies abdominal pain. She denies leg pain or swelling. She does have bruising of her right upper extremity secondary to the cardiac catheterization. She denies dysuria, frequency or urgency. She denies polyuria or polydipsia. She does have history of hypertension, supraventricular tachycardia, type 2 diabetes, obstructive sleep apnea, coronary disease with recent placement of stent (May 04, 2023), mixed hyperlipidemia and morbid obesity. Prior similar symptoms: No Recent Illness/Hospitalization: Yes [facility] Medical History Atherosclerotic heart disease of ruby coronary artery without angina pectoris Cardiomyopathy Chest pain Diabetes mellitus Essential hypertension GERD (gastroesophageal reflux disease) HTN (hypertension) Hypothyroidism Mixed hyperlipidemia NSTEMI (non-ST elevated myocardial infarction) Obesity, morbid, BMI 40.0-49.9 Obstructive sleep apnea HUSSEIN (obstructive sleep apnea) Supraventricular tachycardia Home Medications aspirin 81 mg chewable tablet 81 mg PO DAILY@0800 09/11/15 [History Last Taken 05/04/23] coenzyme Q10 100 mg capsule 100 mg PO DAILY 08/02/18 [History Last Taken 10/14/18 08:00] metformin 1,000 mg tablet 1,000 mg PO BID #0 tabs 10/16/18 [Rx Last Taken 05/02/23] metoprolol tartrate 100 mg tablet 100 mg PO BID 07/29/19 [History Last Taken 05/04/23] atorvastatin 40 mg tablet 40 mg PO QHS #90 tabs 11/02/19 [Rx Last Taken Unknown] ascorbic acid (vitamin C) 500 mg tablet 500 mg PO DAILY 05/16/20 [History Last Taken Unknown] zinc 50 mg tablet 50 mg PO DAILY 05/16/20 [History Last Taken Unknown] clopidogrel 75 mg tablet 75 mg PO DAILY #90 tabs 12/28/20 [Rx Last Taken 05/04/23] levothyroxine 50 mcg tablet 50 mcg PO DAILY 10/21/21 [History Last Taken 05/04/23] losartan 50 mg tablet 50 mg PO DAILY #90 tabs 06/23/22 [Rx Last Taken 05/04/23] nitroglycerin 0.4 mg sublingual tablet 0.4 mg sublingual Q5M PRN Chest Pain #25 tabs 03/27/23 [Rx Last Taken Unknown] furosemide 40 mg tablet (Lasix) 40 mg PO DAILY #30 tabs 04/16/23 [Rx Last Taken Unknown] empagliflozin 10 mg tablet (Jardiance) 10 mg PO DAILY #30 tabs 04/23/23 [Rx Last Taken Unknown] omeprazole 20 mg capsule,delayed release 20 mg PO DAILY 04/23/23 [History Last Taken 05/04/23] Allergy/AdvReac Type Severity Reaction Status Date / Time clindamycin Allergy Hives Verified 05/08/23 11:51 erythromycin base Allergy Hives Verified 05/08/23 11:51 nitrofurantoin Allergy Hives Verified 05/08/23 11:51 macrocrystalline [From Macrodantin] Sulfa (Sulfonamide Allergy Hives Verified 05/08/23 11:51 Antibiotics) sulfamethoxazole Allergy Hives Verified 05/08/23 11:51 [From Septra] trimethoprim [From Septra] Allergy Hives Verified 05/08/23 11:51 lisinopril AdvReac Intermediate Dry Verified 05/08/23 11:51 Hacking Cough Family History Grandmother CVA (cerebral vascular accident) Mother CAD (coronary artery disease) A-fib Heart disease Father Heart disease Hypertension Cancer Lung CA Sister Fibromyalgia Sister Myocardial infarction Diabetes CAD (coronary artery disease) Brother Myocardial infarction CAD (coronary artery disease) Diabetes Brother Cancer Asthma Aunt Colon cancer Uncle Colon cancer Diabetes Surgical History H/O prior ablation treatment (04/07/17) History of History of cardiac radiofrequency ablation (~04/07/17) History of hysterectomy History of left heart catheterization (05/04/23) History of total right knee replacement (TKR) (~06/2014) Stented coronary artery (05/04/23) Social History household members: spouse Smoking Status: Never smoker alcohol intake: never substance use type: does not use caffeine: Yes Type: carbonated beverages and coffee what type of physical activity do you participate in: none seatbelt use: always do you feel safe at home: Yes ROS ROS ED Constitutional Constitutional ED: Denies chills, fever(s), subjective, sweats or weight loss Eyes Eyes: Denies blurry vision, change in vision or diplopia ENT ENT ED: Denies ear pain, rhinorrhea or sore throat Cardiovascular Cardiovascular: Reports palpitations and racing heartbeat; Denies chest pain, orthopnea or paroxysmal nocturnal dyspnea Respiratory/Chest Respiratory/Chest: Denies cough, dyspnea, dyspnea on exertion, orthopnea or paroxysmal nocturnal dyspnea Gastrointestinal Gastrointestinal: Denies abdominal pain, melena, nausea or vomiting Genitourinary Genitourinary ED: Denies dysuria, hematuria or urinary frequency Musculoskeletal Musculoskeletal: Denies back pain Integumentary Denies rash Neurologic Neurologic: Denies headache(s) or paresthesias Psychiatric Psychiatric: Reports anxiety Endocrine Endocrinology: Denies cold intolerance, polydipsia or polyuria Hematologic/Lymphatic Hematologic/Lymphatic: Reports systems reviewed and no addt'l complaints, except as documented EXAM Physical Exam Const Vital Signs: 05/08/23 11:48 05/08/23 11:51 05/08/23 11:52 Temperature 97.1 F L 97.1 F L Temperature Source Temporal Temporal Pulse Rate 69 65 Respiratory Rate 11 L 17 Respiratory Effort Normal Non-Labored Respiratory Pattern Blood Pressure 143/66 H 143/66 H Blood Pressure Mean 91 91 Pulse Ox 98 99 Oxygen Delivery Method Room Air Room Air 05/08/23 11:52 05/08/23 12:16 05/08/23 14:13 Temperature Temperature Source Pulse Rate 68 65 Respiratory Rate 10 L 23 H Respiratory Effort Normal Non-Labored Respiratory Pattern Normal Blood Pressure 128/70 H 153/90 H Blood Pressure Mean 89 111 Pulse Ox 97 97 Oxygen Delivery Method Room Air Room Air Positive well nourished, well developed and obese Constitutional Narrative: Pleasant elderly woman who appears in no distress. She appears slightly pale. General Appearance ED: well developed, NAD and pallor; Negative for cyanotic or diaphoretic Nutritional Appearance: obese HEENT Reports moist mucous membranes HEENT Narrative: Head is atraumatic and normocephalic. Ears are normal. Nares are patent. Posterior pharynx out erythema or exudate. Uvula is midline. There is noted tongue with protrusion. Eyes PERRL and EOMs intact bilaterally General Eye ED: Negative for pale conjunctiva or scleral icterus Neck no lymphadenopathy, supple and no JVD Chest Wall inspection of chest normal and palpation of chest normal Resp normal respiratory effort and clear to auscultation bilaterally Cardio regular rate, regular rhythm, S1 normal heart sound, S2 normal heart sound and no murmurs GI normal to inspection, nondistended, normoactive bowel sounds, non-tender, non-distended and no masses; Negative for hepatosplenomegaly Back/Spine no CVA tenderness Back/Spine Narrative: The back is normal Thoracic Spine / Upper Back: Negative for thoracic spinal tenderness Lumbar Spine / Lower Back: Negative for lumbar spinal tenderness Extremity normal to inspection General Extremety ED: Yes edema; Negative for tenderness General Extremity: edema Neuro oriented x3, CN's II-XII intact bilaterally and no sensory deficits noted Sensorium / Orientation: alert Motor Exam: strength 5/5 throughout Psych mental status grossly normal Skin no rashes or lesions noted, no wounds and skin turgor normal General Skin Exam: pallor; Negative for jaundice MDM MDM MDM Narrative Medical decision making narrative: Patient may have had PAT or sinus tach. Since patient appears pale obtain CBC to assess H&H. Her conjunctive is pink which probably cyst due to the fact that she is fair skinned. Electrolyte panel was obtained and glucose. [place] panel was obtained to assess for hypokalemia. Patient has mild hyperkalemia with normal BUN and creatinine. Blood sugar slightly low at 195 with a normal serum gap patient is noted to be on Aldactone. We will have her hold her next several doses. Lab Data Attestation: I reviewed the patient's lab results. Lab results narrative: Manner under the MDM of the GERD Labs: Laboratory Results - last 24 hr 05/08/23 05/08/23 11:53 12:33 WBC 8.4 RBC 4.43 Hgb 12.2 Hct 37.8 MCV 85.3 MCH 27.5 MCHC 32.3 RDW Std Deviation 47.9 H RDW Coeff of Jhonatan 15.3 H Plt Count 240 MPV 9.1 Immature Gran % (Auto) 0.600 Neut % (Auto) 58.7 Lymph % (Auto) 32.8 [place] % (Auto) 6.2 Eos % (Auto) 1.1 Baso % (Auto) 0.6 Absolute Neuts (auto) 5.0 Absolute Lymphs (auto) 2.76 Nucleated RBC % 0 Sodium 138 Potassium 5.3 H Chloride 105 Carbon Dioxide 27.0 Anion Gap 6 BUN 13 Creatinine 0.98 Estim Creat Clear Calc 50.74 Est GFR (MDRD) Af Amer 73 Est GFR (MDRD) Non-Af 61 BUN/Creatinine Ratio 13.2 Glucose 195 H Calcium 9.1 POC Glucose 190 H Radiography Chest X-Ray - ED: 2 View and Read by ED Physician (There is elevation of the right hemidiaphragm. The right heart border slightly obscured due to this. The cardiac silhouette otherwise unremarkable. Heart size is unremarkable. Perihilar regions unremarkable. There is no evidence of cephalization and curly B-lines. There is no infiltrate noted.) Diagnostic Testing: Clinical Impression(s) from Imaging Studies Chest X-Ray 05/08/23 13:55 IMPRESSION: Stable elevation of the anterior aspect of the right hemidiaphragm. No acute abnormality is seen. Electronically Signed: Tavo Wiggins MD at 14:11 EDT , Treatment and Re-Evaluation :: Informed of her results and reevaluated at 1515. Patient was informed that due to acuity of other patients there was a delay in her care. She was understanding. Discharge Plan Triage Chief Complaint: Palpitations ED Provider: Kieran Howell Dx/Rx/DC Orders Clinical Impression: Palpitations with regular cardiac rhythm, Essential hypertension, Obstructive sleep apnea, Cardiomyopathy, Atherosclerotic heart disease of ruby coronary artery without angina pectoris, Obesity, morbid, BMI 40.0-49.9, Type 2 diabetes mellitus with hyperglycemia, without long-term current use of insulin Instructions: ED Diabetic Hyperglycemia, ED Palpitations Prescriptions: No Action coenzyme Q10 100 mg capsule 100 mg PO DAILY atorvastatin 40 mg tablet 40 mg PO QHS Qty: 90 3RF ascorbic acid (vitamin C) 500 mg tablet 500 mg PO DAILY zinc 50 mg tablet 50 mg PO DAILY clopidogrel 75 mg tablet 75 mg PO DAILY Qty: 90 3RF levothyroxine 50 mcg tablet 50 mcg PO DAILY nitroglycerin 0.4 mg tablet, sublingual 0.4 mg SUBLINGUAL Q5M PRN (Reason: Chest Pain) Qty: 25 0RF furosemide [Lasix] 40 mg tablet 40 mg PO DAILY Qty: 30 6RF omeprazole 20 mg capsule,delayed release(DR/EC) 20 mg PO DAILY Jardiance 10 mg tablet 10 mg PO DAILY Qty: 30 11RF aspirin 81 MG tablet,chewable 81 mg PO DAILY@0800 metformin 1,000 mg tablet 1,000 mg PO BID Qty: 0 0RF Hold Instructions: Resume on 05/07/23. metoprolol tartrate 100 mg tablet 100 mg PO BID losartan 50 mg tablet 50 mg PO DAILY Qty: 90 3RF Primary Care Provider: Liana Castanon NP Referrals: Liana Castanon NP, [facility] [Primary Care Provider] - 1 Week if not improving Disposition Disposition: Home, Self Care
[2023-05-08 15:38] VITALS: BP 145/90; PULSE 66; RESP 14; O2SAT 99
--- NOTE | 2023-05-08 15:49 | ED.RN ---
THIS RN REQUESTED TO CHECK PT BLOOD SUGAR PRIOR TO DISCHARGE. PT REFUSED TO LET THIS RN CHECK BLOOD SUGAR PRIOR TO DISCHARGE.
== END 2023-05-08 15:45 | disposition home or self-care (01) ==
PROVIDERS: Emergency Provider Emergency Medicine; PCP Registered Nurse; Visit Provider Emergency Medicine
DX: R00.2 Palpitations (principal); E11.65 Type 2 diabetes mellitus with hyperglycemia; E66.01 Morbid (severe) obesity due to excess calories; Z68.41 Body mass index [BMI] 40.0-44.9, adult; I25.118 Atherosclerotic heart disease of native coronary artery with other forms of angina pectoris; I10 Essential (primary) hypertension; E78.2 Mixed hyperlipidemia; G47.33 Obstructive sleep apnea (adult) (pediatric); Z95.5 Presence of coronary angioplasty implant and graft; F41.9 Anxiety disorder, unspecified
CPT/HCPCS: 71046; 80048; 82962; 85025; 93005; 99285

== ENCOUNTER → 2024-01-04 | Outpatient (CLI) | payer MEDICARE, SELFPAY ==
[2018-10-15 15:37] VITALS: BMI 43.4
[2024-01-04 19:17] LABS: ALB/GLOB Ratio 0.8 RATIO (0.9-2.4); AST(SGOT) 39 U/L (15-37); Alanine Aminotransfer ALT/SGPT 32 U/L (13-56); Albumin, Serum 3.4 g/dL (3.2-5.0); Alkaline Phosphatase 90 U/L (45-117); Anion Gap 7 (5-15); BUN 15 mg/dL (7-18); BUN/Creat Ratio 15.5 RATIO (10-20); Calcium,Total 9.5 mg/dL (8.5-10.1); Chloride 104 mmol/L (98-107); Cholesterol 100 mg/dL (200); Creatinine, Serum 0.97 mg/dL (0.55-1.02); EST Glomerular Filtration Rate 62 mL/min (>60); Est Glom Filt Rate - Afr Amer 75 mL/min (>60); Glucose 178 mg/dL (74-106); High Density Lipoprotein 33 mg/dL; Potassium 4.8 mmol/L (3.5-5.1); Protein, Total 7.4 g/dL (6.4-8.2); Sodium Level 137 mmol/L (136-145); Triglycerides 188 mg/dL; Very Low Density Lipoprotein 38 mg/dL (5-40)
== END | disposition home or self-care (01) ==
LOC: LAB 14:23
PROVIDERS: PCP Registered Nurse; Referring Provider Internal Medicine Cardiovascular Disease; Visit Provider Internal Medicine Cardiovascular Disease
DX: R06.09 Other forms of dyspnea (principal); R60.9 Edema, unspecified; I25.10 Atherosclerotic heart disease of native coronary artery without angina pectoris
CPT/HCPCS: 36415; 80053; 80061; 83880

== ENCOUNTER → 2024-01-26 | Outpatient (CLI) | payer MEDICARE, SELFPAY ==
[2018-10-15 15:37] VITALS: BMI 43.4
--- NOTE | 2024-01-26 07:02 | ECHOCS_ITS ---
Reason For Study: SALMERON Procedure This was a 2D Doppler, Color Flow transthoracic echocardiogram. Contrast injection was performed. The study was technically difficult. Exam performed in department. Left Ventricle Mildly dilated left ventricular cavity. Normal LV wall thickness. Moderate generalized hypokinesis. Estimated LVEF 35 to 40%. Diastolic function is indeterminate. Right Ventricle Normal right ventricle. Atria The left and right atria are normal. Mitral Valve Mild (1+) mitral valve insufficiency. Tricuspid Valve Trivial tricuspid valve insufficiency. Unable to estimate RV systolic pressure due to insufficient tricuspid regurgitant envelope. Aortic Valve Trisinus/trileaflet aortic valve. Aortic sclerosis, no stenosis. Pulmonic Valve The pulmonic valve is not well visualized. Great Vessels Mildly dilated aortic root. Pericardium/Pleural No pericardial effusion. Medication 22 gauge I.V. with prn adaptor inserted into right arm. Diluted definity 3ml given slow IV push to enhance endocardial definition. MMode/2D Measurements & Calculations LVIDd: 5.7 cm IVSd: 0.89 cm Ao root diam: 3.9 cm LVIDs: 4.4 cm LVPWd: 0.90 cm LA dimension: 3.5 cm FS: 22.1 % LAV(MOD-bp): 33.2 ml LVAd ap4: 37.8 cm2 SV(MOD-sp4): 47.1 ml LAV(MOD-bp) Indexed: 15.3 ml/m2 LVLd ap4: 7.8 cm LAV(MOD-sp2): 33.0 ml EDV(MOD-sp4): 150.9 ml LAV(MOD-sp4): 32.5 ml EDV(sp4-el): 156.0 ml LVAs ap4: 30.7 cm2 LVLs ap4: 7.5 cm ESV(MOD-sp4): 103.8 ml ESV(sp4-el): 106.8 ml EF(MOD-sp4): 31.2 % EF(sp4-el): 31.6 % SV(sp4-el): 49.2 ml LA A4 area: 13.5 cm2 RA A4 area: 12.8 cm2 TAPSE: 1.8 cm Time Measurements MV dec time: 0.21 sec Doppler Measurements & Calculations MV E max bandar: 64.0 cm/sec Lat Peak E' Bandar: 4.9 cm/sec Med Peak E' Bandar: 6.1 cm/sec MV A max bandar: 85.9 cm/sec E/E' lat: 13.1 E/E' med: 10.5 MV E/A: 0.75 MV V2 max: 91.1 cm/sec MV P1/2t max bandar: 63.5 cm/sec Ao V2 max: 115.2 cm/sec MV max P.3 mmHg MV P1/2t: 60.2 msec Ao max P.3 mmHg MV V2 mean: 48.2 cm/sec MV mean P.1 mmHg MV dec slope: 309.2 cm/sec2 MV V2 VTI: 17.2 cm MVA(P1/2t): 3.7 cm2 LV V1 max: 68.6 cm/sec MR max bandar: 448.9 cm/sec PA V2 max: 95.0 cm/sec LV V1 max P.9 mmHg MR max P.6 mmHg LV V1 mean P.2 mmHg LV V1 mean: 49.8 cm/sec LV V1 VTI: 14.2 cm ECHO/Echo Complete W/ Contrast Interpretation Summary Mildly dilated left ventricular cavity. Moderate generalized hypokinesis. Estim ated LVEF 35 to 40%. Mild (1+) mitral valve insufficiency. Aortic sclerosis, no stenosis. Mildly dilated aortic root. Ordering Physician: Esdras Sarabia Referring Physician: Esdras Sarabia Performed By: Edu Key RCS
--- NOTE | 2024-01-26 10:17 | STRESSREP ---
Stress Test Report Date: 01/26/2024 Procedure: Pharmacologic stress nuclear imaging study Indications: Dyspnea on exertion Consent: Per the patient Procedure: The patient underwent pharmacologic (Regadenoson 0.4mg ) evaluation with a peak heart rate of 102 beats per minute (64%predicted maximal heart rate) and a peak blood pressure of 150/62 mmHg. The baseline ECG demonstrated sinus rhythm. The peak pharmacologic ECG demonstrated no diagnostic ischemic changes. There were no cardiac dysrhythmias pretest, during pharmacologic infusion, or recovery. There was no complaint of chest discomfort during pharmacologic infusion or recovery. The patient was injected with 15.0 millicuries of technetium 99m Cardiolite and subsequently rest SPECT Cardiolite nuclear imaging was obtained in the horizontal long, vertical long, and short axis views. The patient underwent pharmacologic (Regadenoson) evaluation. The patient was injected with 44.8 millicuries of technetium 99m Cardiolite and subsequently stress SPECT Cardiolite nuclear imaging was obtained in the horizontal long, vertical long, and short axis views. A gated Cardiolite study at peak stress was obtained. The examination was stopped secondary to completion of protocol. Rest and stress SPECT Cardiolite nuclear imaging status post realignment, normalization, and attenuation correction demonstrate a very small reversible perfusion defect of the apex. The reported LVEF is 21%. The left ventricle appears dilated. Impression: 1. Pharmacologic (Regadenoson) evaluation 2. Peak pharmacologic ECG with no diagnostic ischemic changes. 3. There were no cardiac dysrhythmias pretest, during pharmacologic infusion, or recovery. 5. A very small reversible perfusion defect of the apex suggestive of mild ischemia. 6. The gated Cardiolite study reports an LVEF of 21%. The left ventricular cavity appears dilated. This note was generated with [employer] software. It may contain incorrect words, spelling, and punctuation that were not noted in checking the note before signing.
== END | disposition home or self-care (01) ==
PROVIDERS: PCP Registered Nurse; Referring Provider Internal Medicine Cardiovascular Disease; Visit Provider Internal Medicine Cardiovascular Disease
DX: R07.9 Chest pain, unspecified (principal); R00.2 Palpitations; R60.9 Edema, unspecified; R06.00 Dyspnea, unspecified; R94.39 Abnormal result of other cardiovascular function study; Z86.79 Personal history of other diseases of the circulatory system
CPT/HCPCS: 78452; 93017; 93225; 93226; 93306; A9500; Q9957; A4216; C8929; J2785

== ENCOUNTER → 2024-09-21 | Outpatient (CLI) | payer MEDICARE, SELFPAY ==
[2018-10-15 15:37] VITALS: BMI 43.4
--- NOTE | 2024-09-21 13:38 | CT_ITS ---
PROCEDURE: Cardiomyopathy. Coronary stents. Possible sarcoidosis. TECHNIQUE: Chest CT without contrast. COMPARISON: None. FINDINGS: Hardware: None. Lymph nodes: Calcified right hilar lymph. Heart and Vasculature: Normal heart size. No pericardial effusion. Atherosclerotic calcifications of the thoracic aorta. Thoracic aorta and pulmonary arteries have normal contours; noncontrast technique limits evaluation. Coronary Artery Calcifications: Present Lungs and Airways: The lungs are normally expanded and clear. Pleura: No pleural effusion. No pneumothorax. Upper Abdomen: Visualized portions of the upper abdominal viscera are unremarkable. Bones: Degenerative changes of the thoracic spine. CT/Chest without Contrast IMPRESSION: Coronary artery calcification. No evidence of sarcoidosis. One or more dose reduction techniques were used (e.g., Automated exposure contr ol, adjustment of the mA and/or kV according to patient size, use of iterative reconstruction technique). Reading Location: [id number]
== END | disposition home or self-care (01) ==
LOC: CT 13:37
PROVIDERS: PCP Registered Nurse; Referring Provider Internal Medicine Cardiovascular Disease; Visit Provider Internal Medicine Cardiovascular Disease
DX: R94.39 Abnormal result of other cardiovascular function study (principal); I50.9 Heart failure, unspecified; I11.0 Hypertensive heart disease with heart failure; I42.9 Cardiomyopathy, unspecified; R07.9 Chest pain, unspecified; R06.00 Dyspnea, unspecified; R00.2 Palpitations; Z95.5 Presence of coronary angioplasty implant and graft; I47.10 Supraventricular tachycardia, unspecified; Z86.79 Personal history of other diseases of the circulatory system
CPT/HCPCS: 71250

== ENCOUNTER → 2024-11-07 | Outpatient (CLI) | payer MEDICARE, SELFPAY ==
[2018-10-15 15:37] VITALS: BMI 43.4
[2024-11-07 12:42] LABS: Absolute Lymphocyte Count 2.87 X10^3/uL (0.83-4.51); Absolute Neutrophil Count 5.9 X10^3/uL (2.0-7.7); Basophil# 0.07 X10^3/uL; Basophil% 0.7 % (0-1); Eosinophil# 0.08 X10^3/uL; Eosinophils% 0.8 % (0-5); Hematocrit 42.8 % (37-47); Hemoglobin 13.6 g/dL (12.0-15.0); Lymphocyte # 2.87 X10^3/ul (0.83-4.51); Lymphocyte % 30.2 % (19-41); Mean Corp Hgb Conc 31.8 g/dL (32-36); Mean Corpuscular Hgb 27.4 pg (27.0-32.0); Mean Corpuscular Volume 86.3 fL (81-99); Mean Platelet Vol. 9.5 fl (6.2-12.0); Monocyte# 0.48 X10^3/uL; Monocyte% 5.1 % (0-10); NRBC Flagged by Analyzer 0 % (0-5); Neutrophil # 5.93 X10^3/uL (2.7-7.7); Neutrophil % 62.6 % (47-70); Platelet Count 339 K/mm3 (150-450); RBC Distribution Width CV 15.6 % (11.6-14.6); RBC Distribution Width SD 48.8 fl (35.1-43.9); Red Blood Count 4.96 M/mm3 (4.2-5.4); White Blood Count 9.5 K/mm3 (4.4-11.0)
[2024-11-07 13:50] LABS: Anion Gap 14 (5-15); BUN 16 mg/dL (4-19); BUN/Creat Ratio 16.8 RATIO (10-20); Calcium,Total 9.7 mg/dL (7.6-11.0); Carbon Dioxide 20.3 mmol/L (21.0-32.0); Chloride 100 mmol/L (98-108); Creatinine, Serum 0.94 mg/dL (0.70-1.20); EST Glomerular Filtration Rate 67 (>60); Glucose 262 mg/dL (70-99); Potassium 4.8 mmol/L (3.3-5.1); Pro- Brain NATRIURETIC PEPTIDE 178 pg/mL (<=900); Sodium Level 135 mmol/L (133-145)
== END | disposition home or self-care (01) ==
LOC: LAB 11:36
PROVIDERS: PCP Registered Nurse; Referring Provider Nurse Practitioner Gerontology; Visit Provider Nurse Practitioner Gerontology
DX: R06.09 Other forms of dyspnea (principal)
CPT/HCPCS: 36415; 80048; 83880; 85025

== ENCOUNTER → 2024-11-29 | Outpatient (CLI) | payer MEDICARE, SELFPAY ==
[2018-10-15 15:37] VITALS: BMI 43.4
--- NOTE | 2024-11-29 10:30 | RAD_ITS ---
PROCEDURE: CHEST PA AND LATERAL 11/29/2024 REASON FOR EXAM: CHEST PAIN, SOB TECHNIQUE: Frontal and lateral views of the chest. COMPARISON: 05/08/2023 FINDINGS: The lungs appear clear. No pleural effusion. Pulmonary vascularity appears within limits. The cardiac and mediastinal contours appear within limits and unchanged. Status post cholecystectomy again noted. Visualized osseous structures appear unchanged. RAD/Chest PA and Lateral IMPRESSION: No evidence of acute disease. Reading Location: [id number]
[2024-11-29 11:09] LABS: Prothrombin Time (Protime)PT. 13.7 SECONDS (11.7-14.9)
[2024-11-30 17:08] LABS: Angiotensin Convert Enzyme 46 U/L (14-82)
== END | disposition home or self-care (01) ==
LOC: LAB 10:17
PROVIDERS: PCP Registered Nurse; Referring Provider Internal Medicine Cardiovascular Disease; Visit Provider Internal Medicine Cardiovascular Disease
DX: R07.9 Chest pain, unspecified (principal); I42.9 Cardiomyopathy, unspecified; R00.2 Palpitations; R94.39 Abnormal result of other cardiovascular function study; R06.02 Shortness of breath
CPT/HCPCS: 36415; 71046; 82164; 85610

== ENCOUNTER 2024-12-05 12:38 | Observation (INO) | payer MEDICARE, SELFPAY ==
[2018-10-15 15:37] VITALS: BMI 43.4
[2024-12-02 07:38] VITALS: BMI 42.7
[2024-12-05] VITALS (11 sets, daily range): BP systolic 108–124; BP diastolic 65–69; PULSE 84–97; RESP 15–18; TEMP 36.6–37.1; O2SAT 95–98
--- NOTE | 2024-12-05 12:44 | DCINST_ITS ---
Discharge Instructions Diet Discharge Diet: 1999 Calorie Control Diet DC O2, CPAP, BIPAP needs Home O2 Discharge instructions: No Dressing / Incision Discharge Activity: - (No heavy lifting bending or strenuous physical activity for 1 week) May resume sexual activity in: 1-2 weeks Dressing / Incision Call your doctor if your incision/area has: Continuous Slow Oozing, Sudden Increased Bleeding, Increased Pain/ Swelling, Increased Redness, Foul Smelling Discharge and Swelling at the incision site Call your doctor if you observe: Fever of 101 or Higher, Coldness, Increased Pain and Numbness or Tingling Follow Up Care Please Follow Up With: Esdras Sarabia MD When: 2-4 weeks Test Results: Test results from this visit will be discussed in further detail at your follow- up appointment, if applicable. Discharge Plan Admission Attending Provider: Esdras Sarabia Primary Care Provider: Liana Castanon NP Instructions Print Language: Ivorian Discharge Orders/Prescriptions Prescriptions: Continued coenzyme Q10 100 mg capsule 100 mg PO DAILY atorvastatin 40 mg tablet 40 mg PO QHS Qty: 90 3RF ascorbic acid (vitamin C) 500 mg tablet 500 mg PO DAILY clopidogrel 75 mg tablet 75 mg PO DAILY Qty: 90 3RF levothyroxine 50 mcg tablet 50 mcg PO DAILY nitroglycerin 0.4 mg tablet, sublingual 0.4 mg SUBLINGUAL Q5M PRN (Reason: Chest Pain) Qty: 25 0RF omeprazole 20 mg capsule,delayed release(DR/EC) 20 mg PO DAILY gabapentin 100 mg capsule 200 mg PO BID Trulicity 3 mg/0.5 mL pen injector 3 mg subcut QWEEK Patient Comments: [NO ORIGINAL SIG] aspirin 81 MG tablet,chewable 81 mg PO DAILY@0800 metoprolol tartrate 100 mg tablet 100 mg PO BID sacubitril-valsartan [Entresto] 49-51 mg tablet 1 tab PO BID Qty: 180 3RF Changed furosemide [Lasix] 40 mg tablet 40 mg PO DAILY Qty: 30 6RF isosorbide mononitrate 30 mg tablet extended release 24 hr 30 mg PO DAILY Qty: 30 6RF Held metformin 1,000 mg tablet 1,000 mg PO BID Qty: 0 0RF Hold Instructions: Resume on 12/08/24. Referrals / Follow Up: Liana Castanon NP, [facility] [facility] [Primary Care Provider] - Disposition Disposition (needs filled in before D/C Order can be placed): Home, Self Care
--- NOTE | 2024-12-05 12:45 | EKG12_ITS ---
Test Reason : POST PCI Blood Pressure : */* mmHG Vent. Rate : 87 BPM Atrial Rate : 87 BPM P-R Int : 140 ms QRS Dur : 84 ms QT Int : 366 ms P-R-T Axes : 40 -18 83 degrees QTcB Int : 440 ms Normal sinus rhythm Low voltage QRS Nonspecific T wave abnormality Abnormal ECG When compared with ECG of 08-May-2023 12:03, No significant change was found Confirmed by CARMEN SANDERSON, NICOLA ([id number]), mapping editor MAIKEL JEFF ([id number]) on 12/06/2024 1:32:20 PM Referred By: Esdras Sarabia Confirmed By: NICOLA MORALES MD
[2024-12-05 12:48] LABS: ACT Activated Clotting Time 216 sec (74-137)
[2024-12-05 12:48] LABS: ACT Activated Clotting Time 245 sec (74-137)
--- NOTE | 2024-12-05 13:00 | CL.I_ITS ---
Patient Name: YUE IBRAHIM Study Date: 12/05/2024 Performing: Esdras Sarabia MD Ht: 64 inches 162.56 cm : 1960 Wt: 249.3 lbs 112.94 kg Age: 64 Gender: female BSA: 2.15 PROCEDURE(S) PERFORMED DC02-(46917)LHC/COR IC12-([id number]/[id number])JULIA W/WO PTCA, SINGLE CORONARY ARTERY CLINICAL PROFILE AND CO-MORBIDITIES Indications: Other Heart Failure: NYHA Class: 2, Newly Diagnosed: No, Heart Failure Type: Systolic Stress/Imaging Stress Test w/SPECT MPI: Yes Result: Positive Intermediate Risk Stress Test with SPECT MPI: Positive Intermediate Risk CAD Presentations: Other: Dyspnea on exertion CONCLUSIONS 40% Mid LAD; 60% D1 Stent to Mid LCX patent 30% Prox RCA; 70% Prox RPLV, 70% Mid RPLV Successful JULIA Mid RPLV using Warner [place] 2.5x26 mm Successful JULIA Prox RPLV using [place] 2.75x12 mm RECOMMENDATIONS ASA Indefinitley P2Y12 inhibitors for atleast 6 months Risk factor modification DESCRIPTION OF PROCEDURE The patient arrived to the procedure lab. The risks and benefits of the procedure as well as a full description of our services here and lack of surgical backup were fully explained to the patient and/or their significant other prior to the catheterization. The Timeout was completed, verifying the correct patient and procedure. The patient's procedural site was prepped and draped in the usual fashion. Local anesthetic was given subcutaneously to right radial region with Lidocaine 2%. Local anesthetic was given subcutaneously to right groin region with Lidocaine 2%. Using a modified Seldinger technique, and ultrasound guidance,arterial access was obtained via the right femoral artery, a 5Fr sheath was inserted.. Left Coronary Artery selective angiography was performed in multiple views using a 5 Fr. JL4 catheter. Right Coronary Artery selective angiography was then performed in multiple views using a 5 Fr. 3DRC (Souarv) catheterThe images were reviewed and options discussed. A decision was then made to proceed with an Intervention, IVUS or other adjunct procedure. Arterial sheath was exchanged for a 6 Fr Sheath. 3DRC Guide catheter was inserted and engaged into the RCA. Runthrough Guide wire was advanced to the 1st RPL. [place] Nancy 2.50x30 Drug Eluting stent was inserted. Drug Eluting stent was removed intact, failed to cross lesion [place] Warner 2.50x26 Drug Eluting stent was inserted. Angiogram performed post stent deployment. NC Emerge 2.50x15 Balloon catheter was inserted. [place] Nancy 2.75x12 Drug Eluting stent was inserted. Angiogram performed post stent deployment. NC Emerge 2.75x12 Balloon catheter was inserted. Angiogram performed post balloon dilatation. The arterial sheath was pulled and a Perclose closure device was deployed for hemostasis CORONARY ANGIOGRAPHY LEFT MAIN: Angiographically normal LEFT ANTERIOR DESCENDING ARTERY: LAD: Tubular 40% Mid lesion in LAD DIAGONAL 1: Tubular 60% Ostial lesion in 1st Diagonal OM 1: Tubular 50% Proximal lesion in 1st OM RIGHT CORONARY ARTERY: RCA: Tubular 30% Proximal lesion in RCA RPLS: Tubular 70% Proximal lesion in RPL1 Tubular 70% Mid lesion in RPL1 INTERVENTION INFORMATION LESION SITE: RPL (2nd) Lesion Complexity: High/C, lesion length: 24 mm, In-stent restenosis: No Pre Stenosis: 70 % Pre intervention MARISOL flow: 3 PROCEDURE: Drug Eluting Stent with post dilatation Post Stenosis: 0 % Post intervention MARISOL flow: 3 Lesion Devices: Terumo .014 180cm Runthrough Extra Floppy straight Cordis 6 Fr 3DRC 100cm Guide Catheter Medtronic 2.50 x 26 NANCY FRONTIER JULIA [employer] [place] EMERGE MR 2.50x15 BALLOON [employer] NC EMERGE MR 2.75x12 BALLOON LESION SITE: RPL (2nd) In-stent restenosis: No, Lesion Complexity: Non-High/Non-C, lesion length: 10 mm Pre Stenosis: 70 % Pre intervention MARISOL flow: 3 PROCEDURE: Drug Eluting Stent with post dilatation Post Stenosis: 0 % Post intervention MARISOL flow: 3 Lesion Devices: Terumo .014 180cm Runthrough Extra Floppy straight Cordis 6 Fr 3DRC 100cm Guide Catheter Medtronic 2.75 x 12 NANCY FRONTIER JULIA [employer] NC EMERGE MR 2.75x12 BALLOON COMPLICATIONS No Complications PROCEDURE MEDICATIONS Versed 1 mg IV Fentanyl 50 mcg IV Versed 1 mg IV Fentanyl 50 mcg IV Oxygen: 2 L/min via nasal cannula Heparin 7000 unit(s) IV 12/05/2024 11:52:33 Heparin 2000 unit(s) IV 12/05/2024 12:02:31 Heparin 3000 unit(s) IV 12/05/2024 12:38:07 Nitro Tab 0.4 mg PO 12/05/2024 11:24:24 Nitro 200 mcg IC 12/05/2024 12:20:04 Plavix 300 mg PO 12/05/2024 12:39:54 IV Bolus: .9 NaCl 300 ml total 12/05/2024 12:29:22 SUMMARY OF HEMODYNAMIC DATA Time AIR REST ECG 07:50:41 AO 130/87 (104) SA 11:38:28 AO 131/83 (104) 11:56:38 AO 116/82 (97) 12:24:12 Signed By Esdras Sarabia MD On 12/05/2024 12:59:44 Esdras Sarabia MD
--- NOTE | 2024-12-05 13:34 | PHA.DC.MR.R ---
Pharmacy [place] Med Reconciliation Pharmacy Service has performed discharge medication reconciliation for this patient. The patient's discharge medication list was reviewed for discrepancies and discrepancies were resolved. Medications at Discharge Home Medications aspirin 81 mg chewable tablet 81 mg PO DAILY@0800 09/11/15 coenzyme Q10 100 mg capsule 100 mg PO DAILY 08/02/18 metformin 1,000 mg tablet 1,000 mg PO BID #0 tabs 10/16/18 Held on 12/05/24. Instructions: Resume on 12/08/24. metoprolol tartrate 100 mg tablet 100 mg PO BID 07/29/19 atorvastatin 40 mg tablet 40 mg PO QHS #90 tabs 11/02/19 ascorbic acid (vitamin C) 500 mg tablet 500 mg PO DAILY 05/16/20 clopidogrel 75 mg tablet 75 mg PO DAILY #90 tabs 12/28/20 levothyroxine 50 mcg tablet 50 mcg PO DAILY 10/21/21 nitroglycerin 0.4 mg sublingual tablet 0.4 mg sublingual Q5M PRN Chest Pain #25 tabs 03/27/23 omeprazole 20 mg capsule,delayed release 20 mg PO DAILY 04/23/23 gabapentin 100 mg capsule 200 mg PO BID 01/04/24 sacubitril 49 mg-valsartan 51 mg tablet (Entresto) 1 tab PO BID #180 tabs 10/18/24 dulaglutide 3 mg/0.5 mL subcutaneous pen injector (Trulicity) 3 mg subcut QWEEK 11/07/24 furosemide 40 mg tablet (Lasix) 40 mg PO DAILY swelling #30 tabs 12/05/24 isosorbide mononitrate 30 mg tablet,extended release 24 hr 30 mg PO DAILY #30 tabs 12/05/24
--- NOTE | 2024-12-05 14:09 | CRPHASE1 ---
Patient Communication Patient Information Former Patient:: Phase I PHII Cardiac Rehab Discussed with Patient:: Yes Guide to Cardiac Rehab Given to Patient:: Yes Cardiac Rehab Facility Choice List Given to Patient:: Yes Communication to Cardiac Rehab Choice Program [facility] CR PHII:: Communication Given to CR Non Licensed Operator:: Esdras Sarabia Refer Phase II Cardiac Rehab:: Yes Cardiac Rehabilitation Info Program Information Cardiac Rehabilitation Program Information: Cardiac Rehab The cardiac rehab team at [facility] consists of highly skilled exercise physiologists, nurses, respiratory therapists and physicians working together with you. Our purpose is to help you have a full recovery and achieve the goals you set for yourself. Over the years many of our patients have returned to activities they assumed they would never do again! We can help restore your confidence and motivation to make lifestyle changes that can have a significant impact on your health and quality of life! We can help answer questions and concerns you may have about exercise, lifestyle, medications, diet, stress and anxiety which are common following a hospitalization. WE monitor ECG and vital signs during exercise and discuss your progress with you and report to your physician(s). Cardiac Rehab is proven to help reduce readmissions, improve functional capacity and lower recurrence of problems with your heart. Our Cardiac Rehab program is Certified by the [place] [employer] (AACVPR) and Accredited by the [place] [employer] through our [facility]. You can contact us at . We invite you to call us with your questions or to get started in our program. If you have other questions or concerns be sure to ask your physician/provider during your follow-up visit. WE look forward to seeing you!
--- NOTE | 2024-12-05 14:10 | CRPH1.INSTRU ---
General Education Discussed with Patient CAD and cardiac anatomy and function:: Patient communicates acknowledgment Explanation of diagnoses and procedures:: Patient communicates acknowledgment Sign/Symptoms of DE:: Patient communicates acknowledgment Antiplatelet therapy: Patient communicates acknowledgment Proper use of NTG-SL: Patient communicates acknowledgment Emergency procedures and activation of EMS: Patient communicates acknowledgment Compliance of all prescribed medications: Patient communicates acknowledgment Smoking Risk Factors Patient Nicotine/Smoking Risk Factors Are:: Non-smoker Recommendations Recommendations Include:: Second-hand smoke recommendation Response Code Nicotine/Smoking Response Code:: Patient communicates acknowledgment Dyslipidemia Recommendations Recommendations Include:: Lipid profile not available Response Code Dyslipidemia Response Code:: Patient communicates acknowledgment Overweight/Obesity Risk Factors Patient Overweight/Obesity Risk Factors Are:: Obesity - > or = 30 Recommendations Recommendations Include:: Weight loss of 5-10%, Reduced calorie diet and Exercise 5-7 times/week Response Code Overweight/Obesity:: Patient communicates acknowledgment Hypertension Recommendations Recommendations Include:: BP <130/80 if diabetic Response Code Hypertension:: Patient communicates acknowledgment Heart Disease Risk Factors Patient Heart Disease Risk Factors Are:: Family history of heart disease < 65 years old Recommendations Recommendations Include:: Educated family members of their risk Response Code Heart Disease Response Code:: Patient communicates acknowledgment Diabetes Recommendations Recommendations Include:: Maintain fasting blood sugars 70-110 md/dL, Maintain HgbA1c of 6% or less, Monitor blood sugar as prescribed, Diabetic dietary guidelines and Decrease/maintain body weight Response Code Diabetes:: Patient communicates acknowledgment Metabolic Syndrome Recommendations Recommendations Include:: Does not meet criteria Response Code Metabolic Syndrome Response Code:: Patient communicates acknowledgment Sedentary Risk Factors Patient Sedentary Risk Factors Are:: Lack of regular exercise Recommendations Recommendations Include:: Aerobic exercise 5-7 times/week for 20-30 minutes continuously, Benefits of regular exercise, Discussed home walking program and Monitored Outpatient Cardiac Rehab Response Code Sedentary Response Code:: Patient communicates acknowledgment Stress Recommendations Recommendations Include:: Identification of stressors, and assessment of coping skills and Stress management techniques Response Code Stress Response Code:: Patient communicates acknowledgment
[2024-12-05] MEDS: 0.9% Normal Saline (1000mL) 1,000 ML 75 ML IV (14:32)
[2024-12-05] MEDS: Metoprolol Tartrate 100 MG Tablet PO (21:09)
[2024-12-05] MEDS: Gabapentin 100 MG Capsule 200 MG PO (21:11)
[2024-12-05] MEDS: SACUBITRIL/VALSARTAN 49-51 MG TABLET 1 EACH PO (21:12)
[2024-12-05] MEDS: Isosorbide Mononitrate 30 MG Tablet PO (21:12)
[2024-12-05] MEDS: Atorvastatin Calcium 40 MG Tablet PO (21:12)
[2024-12-06 04:00] VITALS: BP 114/58; PULSE 82; RESP 16; TEMP 36.6; O2SAT 96
[2024-12-06 06:15] LABS: Hematocrit 35.4 % (37-47); Hemoglobin 11.5 g/dL (12.0-15.0); Mean Corp Hgb Conc 32.5 g/dL (32-36); Mean Corpuscular Hgb 27.6 pg (27.0-32.0); Mean Corpuscular Volume 85.1 fL (81-99); Mean Platelet Vol. 9.3 fl (6.2-12.0); Platelet Count 246 K/mm3 (150-450); RBC Distribution Width CV 16.1 % (11.6-14.6); RBC Distribution Width SD 49.4 fl (35.1-43.9); Red Blood Count 4.16 M/mm3 (4.2-5.4); White Blood Count 7.8 K/mm3 (4.4-11.0)
[2024-12-06] MEDS: Levothyroxine 50 MCG Tablet PO (06:23)
[2024-12-06 07:06] LABS: ALB/GLOB Ratio 1.3 RATIO (0.9-2.4); AST(SGOT) 31 U/L (<=31); Alanine Aminotransfer ALT/SGPT 15 U/L (<=34); Albumin, Serum 3.6 g/dL (3.4-4.8); Alkaline Phosphatase 88 U/L (35-104); Anion Gap 14 (5-15); BUN 11 mg/dL (4-19); BUN/Creat Ratio 12.7 RATIO (10-20); Calcium,Total 8.8 mg/dL (7.6-11.0); Carbon Dioxide 19.5 mmol/L (21.0-32.0); Chloride 102 mmol/L (98-108); Creatinine, Serum 0.89 mg/dL (0.70-1.20); EST Glomerular Filtration Rate 72 (>60); Estimated Creatinine Clearance 78.63 ml/min (50-250); Globulin 2.9 g/dL (2.2-4.2); Glucose 157 mg/dL (70-99); Protein, Total 6.5 g/dL (5.9-8.4); Sodium Level 136 mmol/L (133-145); Total Bilirubin 0.72 mg/dL (0.00-1.30)
[2024-12-06 07:19] LABS: Magnesium 1.6 mg/dL (1.5-2.2)
[2024-12-06 08:03] VITALS: BP 115/67; PULSE 87; RESP 16; TEMP 36.6; O2SAT 96
[2024-12-06] MEDS: Aspirin 81 MG TAB.CHEW PO (08:09)
[2024-12-06] MEDS: Gabapentin 100 MG Capsule 200 MG PO (09:14)
[2024-12-06 09:15] VITALS: PULSE 87
[2024-12-06] MEDS: Pantoprazole Sodium 20 MG Tablet PO (09:15)
[2024-12-06] MEDS: Ascorbic Acid 500 MG Tablet PO (09:15)
[2024-12-06] MEDS: Metoprolol Tartrate 100 MG Tablet PO (09:15)
[2024-12-06] MEDS: Clopidogrel Bisulfate 75 MG Tablet PO (09:15)
[2024-12-06] MEDS: SACUBITRIL/VALSARTAN 49-51 MG TABLET 1 EACH PO (09:15)
--- NOTE | 2024-12-06 09:29 | CASEMGMT ---
Patient has order for discharge. RN CM in to discuss needs at discharge. Patient denies needs or help at discharge. Patient had no further questions or concerns.
== END 2024-12-06 10:01 | disposition home or self-care (01) ==
LOC: CLSP 12:41 → PCU 12:55
PROVIDERS: Internal Medicine Cardiovascular Disease; Admitting Provider Internal Medicine Cardiovascular Disease; PCP Registered Nurse; Referring Provider Internal Medicine Cardiovascular Disease; Visit Provider Internal Medicine Cardiovascular Disease
DX: I25.10 Atherosclerotic heart disease of native coronary artery without angina pectoris (principal); I42.8 Other cardiomyopathies; E11.9 Type 2 diabetes mellitus without complications; I10 Essential (primary) hypertension; Z95.5 Presence of coronary angioplasty implant and graft; Z86.79 Personal history of other diseases of the circulatory system; G47.33 Obstructive sleep apnea (adult) (pediatric); R06.09 Other forms of dyspnea; R07.89 Other chest pain; R00.2 Palpitations; R42 Dizziness and giddiness; Z79.899 Other long term (current) drug therapy; Z79.82 Long term (current) use of aspirin; Z79.84 Long term (current) use of oral hypoglycemic drugs; Z79.02 Long term (current) use of antithrombotics/antiplatelets; E78.2 Mixed hyperlipidemia; E03.9 Hypothyroidism, unspecified; Z79.890 Hormone replacement therapy
CPT/HCPCS: 96360; 36415; 80053; 83735; 85027; 85347; 92928; 93005; 93454; 96361; 99152; 99153; 99221; C1894; Q9967; C1725; C1760; C1769; C1874; C1887; C9600; G0378

== ENCOUNTER 2025-03-25 20:57 | Emergency (ER) | payer MEDICARE, SELFPAY ==
[2018-10-15 15:37] VITALS: BMI 43.4
[2025-03-25 21:05] VITALS: BP 123/92; PULSE 100; RESP 19; TEMP 37.1; O2SAT 100; BMI 42.8
--- NOTE | 2025-03-25 21:23 | EX.ED.GENINJ ---
HPI History of Present Illness Chief Complaint: Fall Detail of Chief Complaint: Fall Informant: patient Narrative Narrative: Patient presents to the emergency department after a fall today. She states that she was in the kitchen taking her evening medication when she slipped on some wet water. She tried to catch herself against the counter and her legs kind of splayed apart and fell to the ground. She called her because she could not get back up. EMS was called. She denies striking her head or loss of consciousness. She denies neck pain. She denies chest pain. She denies abdominal pain. She complains of pain in her left buttock and left posterior thigh. Patient on Plavix. She has history of coronary artery disease [facility] Medical History (Updated 03/25/25 @ 21:[address] Kavitha Pan, ) Varicose vein of leg Screening for colorectal cancer Obesity Dyslipidemia History of PSVT (paroxysmal supraventricular tachycardia) Coronary artery disease Obesity, morbid, BMI 40.0-49.9 [place] (dyspnea on exertion) Varicose veins of right lower extremity Mixed hyperlipidemia Abnormal stress test Atherosclerotic heart disease of [place] coronary artery without angina pectoris Diabetes mellitus Cardiomyopathy NSTEMI (non-ST elevated myocardial infarction) Chest pain, rule out acute myocardial infarction Obstructive sleep apnea Bronchitis Essential hypertension Chest pain Endometrial hyperplasia without atypia, simple Hypothyroidism [place] (obstructive sleep apnea) GERD (gastroesophageal reflux disease) HTN (hypertension) Supraventricular tachycardia Home Medications ?Medication ?Instructions ?Recorded ?Last Taken ?Type aspirin 81 mg chewable tablet 81 mg PO DAILY@0800 09/11/12/05/24 History coenzyme Q10 100 mg capsule 100 mg PO DAILY 08/02/18 10/14/18 08:00 History metformin 1,000 mg tablet 1,000 mg PO BID #0 tabs 10/16/18 12/04/24 Rx atorvastatin 40 mg tablet 40 mg PO QHS #90 tabs 11/02/19 Unknown Rx ascorbic acid (vitamin C) 500 mg 500 mg PO DAILY 05/16/20 Unknown History tablet clopidogrel 75 mg tablet 75 mg PO DAILY #90 tabs 12/28/20 12/05/24 Rx levothyroxine 50 mcg tablet 50 mcg PO DAILY 10/21/21 12/05/24 History nitroglycerin 0.4 mg sublingual 0.4 mg sublingual Q5M PRN Chest 03/27/23 Unknown Rx tablet Pain #25 tabs omeprazole 20 mg capsule,delayed 20 mg PO DAILY 04/23/23 05/04/23 History release gabapentin 100 mg capsule 200 mg PO BID 01/04/24 12/05/24 History sacubitril 49 mg-valsartan 51 mg 1 tab PO BID #180 tabs 10/18/24 12/05/24 Rx tablet (Entresto) dulaglutide 3 mg/0.5 mL 3 mg subcut QWEEK 11/07/24 Unknown History subcutaneous pen injector (Trulicity) isosorbide mononitrate 30 mg 30 mg PO DAILY #30 tabs 12/05/24 Unknown Rx tablet,extended release 24 hr metoprolol succinate 200 mg 200 mg PO QDAY #90 tabs 12/21/24 Unknown Rx tablet,extended release 24 hr furosemide 40 mg tablet (Lasix) 40 mg PO DAILY PRN swelling #30 03/22/25 Unknown Rx tabs dulaglutide 4.5 mg/0.5 mL 4.5 mg subcut FR 03/25/25 Unknown History subcutaneous pen injector (Trulicity) hydrocodone-acetaminophen 5-325mg 1 tab PO Q4H PRN PRN Pain 2 days 03/25/25 Unknown Rx 5mg-325mg #10 TABLETS metformin 500 mg tablet,extended 1,000 mg PO BID 03/25/25 Unknown History release 24 hr trazodone 100 mg tablet 100 mg PO QHS PRN PRN insomnia 03/25/25 Unknown History Allergy/AdvReac Type Severity Reaction Status Date / Time clindamycin Allergy Hives Verified 03/25/25 20:58 erythromycin base Allergy Hives Verified 03/25/25 20:58 nitrofurantoin Allergy Hives Verified 03/25/25 20:58 macrocrystalline (From Macrodantin) Sulfa (Sulfonamide Allergy Hives Verified 03/25/25 20:58 Antibiotics) sulfamethoxazole (From Allergy Hives Verified 03/25/25 20:58 Septra) trimethoprim (From Septra) Allergy Hives Verified 03/25/25 20:58 dapagliflozin (From Farxiga) AdvReac Intermediate Yeast Verified 03/25/25 20:58 Infection lisinopril AdvReac Intermediate Dry Verified 03/25/25 20:58 Hacking Cough Family History Grandmother CVA (cerebral vascular accident) Mother CAD (coronary artery disease) A-fib Heart disease Father Heart disease Hypertension Cancer Lung CA Sister Fibromyalgia Sister Myocardial infarction Diabetes CAD (coronary artery disease) Brother Myocardial infarction CAD (coronary artery disease) Diabetes Brother Cancer Asthma Aunt Colon cancer Uncle Colon cancer Diabetes Surgical History Stented coronary artery (12/05/24) History of left heart catheterization (05/04/23) History of hysterectomy History of cardiac radiofrequency ablation (~04/07/17) H/O prior ablation treatment (04/07/17) History of total right knee replacement (TKR) (~06/2014) History of Social History household members: spouse Smoking Status: Never smoker alcohol intake: never substance use type: does not use caffeine: Yes Type: carbonated beverages and coffee what type of physical activity do you participate in: none seatbelt use: always do you feel safe at home: Yes ROS ROS ED Review of Systems ROS Unobtainable: other Constitutional Constitutional ED: Reports lethargy; Denies chills, fever(s), sweats or weight loss Eyes Eyes: Denies blurry vision, change in vision or diplopia ENT ENT ED: Denies rhinorrhea or sore throat Cardiovascular Cardiovascular: Denies chest pain, orthopnea or racing heartbeat Respiratory/Chest Respiratory/Chest: Denies cough, dyspnea, dyspnea on exertion, orthopnea or sputum Gastrointestinal Gastrointestinal: Denies abdominal pain, diarrhea, nausea or vomiting Genitourinary Genitourinary ED: Denies dysuria, hematuria or urinary frequency Musculoskeletal Musculoskeletal: Reports other Details: Left leg pain/injury ; Denies arthralgias, back pain, myalgias or neck pain Integumentary Denies abscess, Abrasions or rash Neurologic Neurologic: Denies headache(s) or weakness Psychiatric Psychiatric: Denies anxiety, depression or suicidal thoughts Endocrine Endocrinology: Denies polydipsia, polyphagia or polyuria Hematologic/Lymphatic Hematologic/Lymphatic: Denies easy bleeding, easy bruising or lymphadenopathy Allergic/Immunologic Allergic/Immunologic ED: Denies mouth swelling, tongue swelling or urticaria EXAM Physical Exam Const Vital Signs: 03/25/25 21:05 03/25/25 21:07 Temperature 98.7 F Temperature Source Oral Pulse Rate 100 Respiratory Rate 19 H Respiratory Effort Normal Non-Labored Respiratory Depth Normal Respiratory Pattern Normal Blood Pressure 123/92 H Blood Pressure Mean 102 Pulse Ox 100 Oxygen Delivery Method Room Air Room Air Positive well nourished and well developed General Appearance ED: well developed and NAD HEENT Reports TM's clear and moist mucous membranes normocephalic and atraumatic; Negative for trauma or tenderness Tympanic Membrane ED: Yes TM's clear Eyes PERRL and EOMs intact bilaterally General Eye ED: Negative for pale conjunctiva or scleral icterus Neck no lymphadenopathy, supple and no JVD General: Negative for tenderness Chest Wall inspection of chest normal and palpation of chest normal Chest: Negative for tenderness Resp normal respiratory effort and clear to auscultation bilaterally Effort and Inspection: Negative for respiratory distress or pain with movement Auscultation: Negative for rhonchi, wheezes or diminished lung sounds Cardio regular rate, regular rhythm, S1 normal heart sound, S2 normal heart sound and no murmurs Peripheral Pulses: pulses 2+ throughout GI normal to inspection, nondistended, normoactive bowel sounds, soft to palpation, non-tender, non-distended and no masses Back/Spine no CVA tenderness and no thoracic nor lumbar tenderness Extremity normal to inspection Extremity Narrative: Left leg-tenderness to palpation over left ischial tuberosity. Tenderness along the left hamstring. No significant tenderness over the hip. There is no shortening or rotational deformity noted. She is neurovascular intact distally. She has pain in the hamstring with straight leg raising. General Extremety ED: Negative for edema General Extremity: Negative for edema Neuro oriented x3, CN's II-XII intact bilaterally, no sensory deficits noted and gait normal Sensorium / Orientation: awake, alert, oriented to person, oriented to place and oriented to time Motor Exam: strength 5/5 throughout and strength abnormal Psych mental status grossly normal Skin no rashes or lesions noted and no wounds MDM MDM MDM Narrative Medical decision making narrative: Patient presents via EMS after a fall. Complaining of left buttock and thigh pain. No obvious deformity on exam. No evidence of head trauma. X-rays of the left hip and pelvis as well as left femur obtained interpreted by myself as no evidence of fracture or dislocation. Will ambulate patient. She did not want a thing for pain. Patient did ambulate in the department and is able to bear weight. Will discharge home with a walker. Will write her prescription for [place] for pain. Advised to follow-up with primary care physician within next 5 to 7 days. Radiography Diagnostic Testing: Clinical Impression(s) from Imaging Studies Femur X-Ray 03/25/25 21:30 IMPRESSION: No acute fracture. - Other findings and recommendations discussed above. Reading Location: [facility] Pelvis X-Ray 03/25/25 21:30 IMPRESSION: No radiographic evidence of an acute osseous injury. - Findings and limitations discussed above. Reading Location: [facility] 4 view x-rays of the left femur obtained interpreted by myself as no evidence of fracture or dislocation. 1 view x-ray of pelvis obtained interpreted by myself as no evidence of fractures. Discharge Plan Triage Chief Complaint: Fall ED Provider: Kavitha Pan Dx/Rx/DC Orders Clinical Impression: Left hamstring muscle strain Instructions: ED Muscle Strain, Extremity Prescriptions: New hydrocodone-acetaminophen 5-325 mg tablet 1 tab PO Q4H PRN PRN (Reason: Pain) 2 Days Qty: 10 0RF No Action coenzyme Q10 100 mg capsule 100 mg PO DAILY atorvastatin 40 mg tablet 40 mg PO QHS Qty: 90 3RF ascorbic acid (vitamin C) 500 mg tablet 500 mg PO DAILY clopidogrel 75 mg tablet 75 mg PO DAILY Qty: 90 3RF levothyroxine 50 mcg tablet 50 mcg PO DAILY nitroglycerin 0.4 mg tablet, sublingual 0.4 mg SUBLINGUAL Q5M PRN (Reason: Chest Pain) Qty: 25 0RF omeprazole 20 mg capsule,delayed release(DR/EC) 20 mg PO DAILY gabapentin 100 mg capsule 200 mg PO BID Trulicity 3 mg/0.5 mL pen injector 3 mg subcut QWEEK Patient Comments: [NO ORIGINAL SIG] metoprolol succinate 200 mg tablet extended release 24 hr 200 mg PO QDAY Qty: 90 3RF aspirin 81 MG tablet,chewable 81 mg PO DAILY@0800 metformin 1,000 mg tablet 1,000 mg PO BID Qty: 0 0RF isosorbide mononitrate 30 mg tablet extended release 24 hr 30 mg PO DAILY Qty: 30 6RF trazodone 100 mg tablet 100 mg PO QHS PRN PRN (Reason: insomnia) metformin 500 mg tablet extended release 24 hr 1,000 mg PO BID Trulicity 4.5 mg/0.5 mL pen injector 4.5 mg SUBCUT FR Patient Comments: [NO ORIGINAL SIG] sacubitril-valsartan [Entresto] 49-51 mg tablet 1 tab PO BID Qty: 180 3RF furosemide [Lasix] 40 mg tablet 40 mg PO DAILY PRN (Reason: swelling) Qty: 30 6RF Primary Care Provider: Liana Castanon NP Referrals: Liana Castanon NP, [employer] [Primary Care Provider] - 5-7 Days Print Language: Georgian Disposition Disposition: Home, Self Care Discharge Date/Time: 03/25/25 22:45
--- OUTSIDE RECORDS SUMMARY | 2025-03-25 21:23 | XMS RPT_ITS | CCD ---
Author Organization [facility] Inform ion Partnership [facility] Care Team Providers Care Senior Network Systems Engineer Name Role Phone MARLENY MCKEON Unavailable Unavailable MARLENY MCKEON Unavailable JAMES Olivia Unavailable Unavailable Rafaela Castanon Primary Care Provider Lg FIELD NATURALIST, FIELD NATURALIST-C Rafaela Referring Provider [phone] Dr. James Miller Attending Provider Dr. Romulo Latif Primary Care Provider Dr. James Miller Referring Provider [phone] James Miller Other Provider PROVIDER, UNKNOWN Referring Unavailable Romulo Latif Primary Care Unavailable Rafaela Castanon Attending Unavailable Romulo Latif MD Primary Care Provider Romulo Latif MD Primary Care Provider Dr. Romulo Latif Primary Care Provider Dr. Romulo Latif Referring Provider Alejandra MONGE, PA Selina Ornelas Attending Provider Dr. Esdras Sarabia Attending Provider [phone] Dr. Esdras Sarabia Referring Provider JUDITH PENNY Primary Care Unava ilable SELINA ROBERTS Referring Unavailabl e Rafaela Ontiveros Primary Care Provider [phone] Rafaela Ontiveros Referring Provider [phone] Cornell SANDERSON, Dr. Dewitt Attending Provider Cornell SANDERSON, Dr. Dewitt Referring Provider Zohaib SANDERSON, Judith kamaljitandrea Primary Care Provi fawn Caridad SANDERSON, Marleny Mart Unavailable Paul SANDERSON, James Cerrato Unavailable Lg LICENSED LOAN OFFICER ASSISTANT, Rafaela Nubia Unavailable PEPE KLINE Attending Unavailable JUDITH PENNYAndrea Primary Care Unava ilable Osbaldo FIELD NATURALIST-C, [place] Attending Provider Osbaldo FIELD NATURALIST-C, [place] Referring Provider Cornell SANDERSON, Dr. Dewitt Admit Provider Lg FIELD NATURALIST-C, [place] Primary Care Provider [phone] Cornell SANDERSON, Dr. Dewitt Attending Provider Lg FIELD NATURALIST-C, Rafaela Referring Provider Cornell, Esdras Attending Unavailable Lg FIELD NATURALIST, [place] Primary Care Unavailable Lg FIELD NATURALIST, [place] Primary Care Unavailable Cornell, Esdras Attending Unavailable Lg FIELD NATURALIST, Rafaela Referring Unavailable Bianka Pinto Attending Unavailable Lg FIELD NATURALIST, Rafaela Referring Unavailable Lg FIELD NATURALIST, [place] Primary Care Unavailable Lg FIELD NATURALIST, [place] Primary Care Unavailable Cornell, Esdras Attending Unavailable Lg FIELD NATURALIST, Rafaela Referring Unavailable Lg FIELD NATURALIST, [place] Primary Care Unavailable Osbaldo MCGRAW, Pascale Attending Unavailable Lg FIELD NATURALIST, Rafaela Referring Unavailable Cornell, Esdras Attending Unavailable Cornell, Esdras Referring Unavailable Cornell, Esdras Admitting Unavailable Lg FIELD NATURALIST, Rafaela Primary Care Unavailable Lg FIELD NATURALIST, Rafaela Primary Care Unavailable Cornell, Esdras Attending Unavailable Cornell, Esdras Referring Unavailable Lg FIELD NATURALIST, [place] Primary Care Unavailable Osbaldo MCGRAW, Pascale Attending Unavailable Osbaldo FIELD NATURALIST, [place] Referring Unavailable Cornell, Esdras Referring Unavailable Cornell, Esdras Attending Unavailable Lg FIELD NATURALIST, [place] Primary Care Unavailable Cornell, Esdras Attending Unavailable Lg FIELD NATURALIST, Rafaela Referring Unavailable Lg FIELD NATURALIST, [place] Primary Care Unavailable Elsa Tracy Attending Unavailable Lg FIELD NATURALIST, Rafaela Primary Care Unavailable Lg FIELD NATURALIST, Rafaela Referring Unavailable RAFAELA CASTANON Attending Unavailable ROMULO LATIF Primary Care Unavailable RAFAELA CASTANON Attending Unavailable ROMULO LATIF Primary Care Unavailable Allergies Allergy Classification Reported Allergen(s) Allergy Type Date of Onset Reaction(s) Facility (20 sources) clarithromycin; Translations: [CLARITHROMYCIN] Drug Allergy 01-26-20 15 [facility] Repository (20 sources) clindamycin; Translations: [CLINDAMYCIN] Drug Allergy 07-23-19 11 [facility] Repository (1 source) erythrosine; Translations: [ERYTHROSINE SODIUM] Drug Allergy [facility] Repository (1 source) Film dressing; Translations: [TEGADERM] Propensity to adverse reactions (disorder) [facility] Rep[facility] (1 source) nitrofurantoin; Translations: [MACROBID] Drug Allergy [facility] (1 source) nitrofurantoin; Translations: [MACRODANTIN] Drug Allergy [facility] (1 source) ANTIBIOTIC; Translations: [ANTIBIOTIC] Propensity to adverse reactions (disorder) [facility] (1 source) SULFA (SULFONAMIDE A; Translations: [SULFA (SULFONAMIDE A] Propensity to adverse reactions (disorder) [facility] (20 sources) Erythromycin; Translations: [ERYTHROMYCIN] Drug Allergy 07-23-19 11 [place], [place] (20 sources) Nitrofurantoin Drug Allergy 01-26-20 15 [place], [place] (20 sources) Sulfamethoxazole / Trimethoprim; Translations: [SULFAMETHOXAZOLE-T RIMETHOPRIM] Drug Allergy 11-27-19 06 [place] (1 source) Sulfonamides (Antibiotic) Propensity to adverse reactions to drug 01-26-20 15 [place] (20 sources) Trimethoprim Drug Allergy 09-24-19 16 [place] (20 sources) Clindamycin/Lincomy janna Propensity to adverse reactions to drug 07-23-19 11 [place] (10 sources) Lisinopril Drug Allergy 08-09-19 22 Dry Hacking Cough [facility] (10 sources) Sulfamethoxazole Drug Allergy 08-09-19 22 [facility] (14 sources) Sulfonamides (Antibiotic); Translations: [SULFA (SULFONAMIDE ANTIBIOTICS)] Allergy to substance 07-23-19 11 [facility] (14 sources) nitrofurantoin macrocrystalline; Translations: [NITROFURANTOIN MACROCRYSTALLINE] Allergy to substance 07-23-19 11 [facility] (20 sources) Lisinopril Propensity to adverse reactions 08-09-19 22 Other [facility] (20 sources) Nitrofurantoin; Translations: [NITROFURANTOIN] Drug Allergy 11-27-19 06 Hives, Rash [facility] (20 sources) Sulfonamides (Antibiotic) Drug Intolerance 07-23-19 11 [facility] (20 sources) dapagliflozin Drug Allergy 12-02-19 24 Other [facility] (6 sources) dapagliflozin Drug Allergy 08-16-19 25 Yeast Infection [facility] (1 source) dapagliflozin Drug Allergy 12-22-19 25 [facility] (1 source) Erythromycin Drug Allergy 12-22-19 25 [facility] (1 source) Lisinopril Drug Allergy 12-22-19 25 [facility] (1 source) Sulfamethoxazole Drug Allergy 12-22-19 25 [facility] (1 source) Trimethoprim Drug Allergy 12-22-19 25 [facility] Repository Medications Current Medications Medication Drug Class(es) Dates Sig (Normalized) Sig (Original) ascorbic acid 500 mg oral tablet (20 sources) Vitamin C Start: 05-16-2020 take 1 tablet by mouth once daily Ascorbic Acid (Vitamin C) 500 mg tablet Active 500 mg PO DAILY May 16, 2020 12:00am take 2 tablets by mouth once michael ly ascorbic acid (Vitamin C) 250 MG tablet Take 500 mg by mouth daily. Active take 1 tablet by mouth once samir y ascorbic acid, vitamin C, (VITAMIN C) 250 mg tablet Take 250 mg by mouth once daily. Active aspirin 81 mg chewable tablet (20 sources) Platelet Aggregation Inhibitor, Nonsteroidal Anti-inflammatory Drug Start: 09-11-2015 take 1 tablet by mouth once daily Aspirin 81 MG tablet,chewable Active 81 mg PO DAILY@0800 September 11, 2015 1:00am Start: 02-20-2012 ASPIRIN 81 PO Take 81 mg by mouth. 02/20/2012 Active take 1 tablet by antonina th once daily aspirin, enteric coated (ASPIRIN, ENTERIC COATED) 81 mg EC tablet Take 81 mg by mouth once daily. Active atorvastatin 40 mg oral tablet (20 sources) HMG-CoA Reductase Inhibitor Start: 10-16-2018 End: 10-27-2024 take 1 tablet by mouth once daily atorvastatin (Lipitor) 40 MG tablet Indications: Hyperlipidemia, unspecified hyperlipidemia type Take 1 tablet (40 mg) by mouth daily. 90 tablet 1 10/28/2024 Active Blood Glucose Calibration (OneTouch Verio) High solution (20 sources) Start: 07-09-2021 Blood Glucose Calibration (OneTouch Verio) High solution 07/09/2021 Active Start: 07-09-2021 Blood Glucose Calibration (OneTouch Verio) High solution Blood Glucose Control, High (ONETOUCH VERIO HIGH CONTROL) (1 source) Blood Glucose Co ntrol, High (ONETOUCH VERIO HIGH CONTROL) Active Blood Glucose Monitoring Sup pl (OneTouch Verio) w/Device kit (19 sources) Start: 01-04-2024 Blood Glucose Monitoring Suppl (OneTouch Verio) w/Device kit Indications: Type 2 diabetes mellitus with obesity (CMS/HCC) (HCC) (HCC) 1 Device in the morning and 1 Device at noon and 1 Device in the evening. 1 kit 01/04/2024 Active Start: 01-04-2024 End: 01-03-2025 [address] (OneTouch Verio) w/Device kit Indications: Type 2 diabetes mellitus with obesity (CMS/HCC) (HCC) (HCC) 1 Device in the morning and 1 Device at noon and 1 Device in the evening. 1 kit 01/04/2024 01/03/2025 Active Blood Pressure KIT (1 source) Start: 10-18-2018 Blood Pressure KIT Indications: Cardiomyopathy, unspecified type (HCC) , Chronic systolic congestive heart failure (HCC) , History of [place] (myocardial infarction) 1 each by Does not apply route daily 1 kit 0 10/18/2018 Active clopidogrel 75 mg oral tablet (20 sources) [id number] Platelet Inhibitor Start: 10-16-2018 End: 10-27-2024 take 1 tablet by mouth once daily clopidogrel (Plavix) 75 MG tablet Take 1 tablet (75 mg) by mouth daily. 90 tablet 1 10/28/2024 Active ubidecarenone 10 mg oral capsule (20 sources) Start: 08-02-2018 coenzyme Q-10 10 MG capsule coenzyme Q10 Ubidecarenone Active 100 MG DAILY August 02, 2018 1:02pm 08-02-2018 [facility] ([id number]) 08/02/2018 Active Start: 08-02-2018 coenzyme Q-10 10 MG capsule coenzyme Q10 Ubidecarenone Active 100 MG DAILY August 02, 2018 1:02pm 08-02-2018 [facility] ([id number]) 0 08/02/2018 Active Start: 08-02-2018 Coenzyme Q10 1 0 MG CAPS coenzyme Q10 Ubidecarenone Active 100 MG DAILY August 02, 2018 1:02pm 08-02-2018 [facility] ([id number]) 0 08/02/2018 Active Start: 08-02-2018 take 10 capsules by mouth once daily Coenzyme Q10 100 mg capsule Active 100 mg PO DAILY August 02, 2018 1:00am Continuous Glucose Dry Cans Operator (FreeStyle [place] 3 [place]) device (6 sources) Start: 02-22-2025 Continuous Glu cose Dry Cans Operator (FreeStyle [place] 3 [place]) device Indications: Type 2 diabetes mellitus with obesity (CMS/HCC) (HCC) ([facility]) Use as directed 1 each 02/22/2025 Active Continuous Glucose Sensor (FreeStyle [place] 3 Sensor) misc (6 sources) Start: 02-22-2025 Continuous Glu cose Sensor (FreeStyle [place] 3 Sensor) misc Indications: Type 2 diabetes mellitus with obesity (CMS/HCC) (HCC) ([facility]) every 14 (fourteen) days. 2 each 5 02/22/2025 Active dulaglutide (20 sources) GLP-1 Receptor Agonist Start: 02-27-2025 dulaglutide (Trulici ty) 4.5 MG/0.5ML Indications: Type 2 diabetes mellitus with obesity (CMS/HCC) (HCC) (HCC) , Type 2 diabetes mellitus with hyperglycemia, without long-term current use of insulin ([facility]) , Class 3 severe obesity due to excess calories with serious comorbidity and body mass index (BMI) of 40.0 to 44.9 in adult Inject 4.5 mg under the skin 1 (one) time per week. 2 mL 2 02/27/2025 Active Start: 02-10-2025 End: 02-27-2025 inject 3 mg by subcutaneous injection every week dulaglutide (Trulicity) 3 MG/0.5ML Indications: Type 2 diabetes mellitus with obesity (CMS/HCC) (HCC) (HCC) Inject 3 mg under the skin 1 (one) time per week. 4 each 2 02/10/2025 02/27/2025 Discontinued (Dose adjustment) Start: 02-10-2025 inject 3 mg by subcu taneous injection every week dulaglutide (Trulicity) 3 MG/0.5ML Indications: Type 2 diabetes mellitus with obesity (CMS/HCC) (HCC) (HCC) Inject 3 mg under the skin 1 (one) time per week. 4 each 2 02/10/2025 Active Start: 11-21-2024 inject 3 mg by subcu taneous injection every week dulaglutide (Trulicity) 3 MG/0.5ML Indications: Type 2 diabetes mellitus with obesity (CMS/HCC) (HCC) (HCC) Inject 3 mg under the skin 1 (one) time per week. 4 each 2 11/21/2024 Active Start: 11-07-2024 Dulaglutide (T rulicity) 3 mg/0.5 mL pen injector Active 3 mg SC EVERY WEEK November 07, 2024 10:47am Start: 11-07-2024 Dulaglutide (T rulicity) 3 mg/0.5 mL pen injector Active mg SC EVERY WEEK November 07, 2024 10:47am Start: 09-05-2024 End: 11-21-2024 inject 1.5 mg by subcutaneous injection every week dulaglutide (Trulicity) 1.5 MG/0.5ML Indications: Type 2 diabetes mellitus with obesity (CMS/HCC) (HCC) (HCC) Inject 1.5 mg under the skin 1 (one) time per week. 4 Pen 1 11/15/2024 11/21/2024 Discontinued (Dose adjustment) Start: 08-16-2024 End: 11-07-2024 Dulaglutide (Trulicity) 3 mg /0.5 mL pen injector Discontinued mg SC August 16, 2024 1:00am November 07, 2024 10:47am Start: 08-16-2024 Dulaglutide (T rulicity) 3 mg/0.5 mL pen injector Active mg SC August 16, 2024 1:00am Start: 01-11-2024 End: 04-18-2024 inject 1.5 mg by subcutaneous injection every week dulaglutide (Trulicity) 1.5 MG/0.5ML solution pen-injector Indications: Type 2 diabetes mellitus with obesity (CMS/HCC) (HCC) (HCC) , Poorly controlled diabetes mellitus (HCC) Inject 1.5 mg under the skin 1 (one) time per week. 4 Pen 2 04/18/2024 Active Start: 12-18-2023 End: 08-16-2024 Dulaglutide (Trulicity) 0.75 mg/0.5 mL pen injector Discontinued 0.75 mg SC EVERY WEEK January 04, 2024 12:00am August 16, 2024 2:20pm Start: 12-02-2023 inject 0.75 mg by fatima bcutaneous injection every week dulaglutide (Trulicity) 0.75 MG/0.5ML solution pen-injector Indications: Type 2 diabetes mellitus with obesity (CMS/HCC) (HCC) (HCC) Inject 0.75 mg under the skin 1 (one) time per week. 4 each 0 12/02/2023 Active Start: 12-08-2022 End: 03-18-2023 inject 0.75 mg by subcutaneous injection every week dulaglutide (Trulicity) 0.75 MG/0.5ML solution pen-injector Indications: Diabetes mellitus type 2 in obese (CMS/HCC) (HCC) Inject 0.75 mg under the skin 1 (one) time per week. 4 each 2 02/18/2023 03/18/2023 Discontinued (Cost of medication) Start: 11-19-2022 inject 0.75 mg by fatima bcutaneous injection every week dulaglutide (Trulicity) 0.75 MG/0.5ML solution pen-injector Indications: Diabetes mellitus type 2 in obese (CMS/HCC) (HCC) Inject 0.75 mg under the skin 1 (one) time per week. 4 each 0 11/19/2022 Active dulaglutide (Trulicity) 1.5 MG/0.5ML solution pen-injector (2 sources) Start: 04-18-2024 inject 1.5 mg by subcutaneous injection every week dulaglutide (Trulicity) 1.5 MG/0.5ML solution pen-injector Indications: Type 2 diabetes mellitus with obesity (CMS/HCC) (HCC) (HCC) , Poorly controlled diabetes mellitus (HCC) Inject 1.5 mg under the skin 1 (one) time per week. 4 Pen 2 04/18/2024 Active Elastic Bandages & Supports (MEDICAL COMPRESSION STOCKINGS) MISC (1 source) Start: 08-24-2019 Elastic Bandages & Supports (MEDICAL COMPRESSION STOCKINGS) MISC Indications: Varicose veins of right lower extremity with pain 1 each by Does not apply route daily 1 each 0 08/24/2019 Active furosemide 40 mg oral tablet (20 sources) Loop Diuretic Start: 04-16-2023 End: 12-05-2024 furosemide (Lasix) 40 MG tablet 04/16/2023 Active Start: 07-06-2020 End: 10-21-2021 take 1 tablet by mouth once daily Furosemide 20 mg tablet Discontinued 20 mg PO DAILY July 06, 2020 1:00am October 21, 2021 2:41pm On Hold: Severe dizziness take 1 tablet by antonina twice daily furosemide (LASIX) 40 mg tablet Take 40 mg by mouth two times a day. Active gabapentin 100 mg oral capsule (20 sources) Anti-epileptic Agent Start: 02-22-2025 take 1 capsule by mouth twice daily gabapentin (Neurontin) 100 MG capsule Indications: Neuropathy of both feet Take 1 capsule (100 mg) by mouth 2 times daily. 02/22/2025 Active Start: 12-15-2024 End: 02-22-2025 take 2 capsules by mouth twice daily gabapentin (Neurontin) 100 MG capsule Indications: Neuropathy of both feet Take 2 capsules by mouth twice daily 120 capsule 01/23/2025 02/22/2025 Discontinued Start: 12-10-2023 End: 06-27-2024 take 2 capsules by mouth twice daily Gabapentin 100 mg capsule Active 200 mg PO TWICE A DAY January 04, 2024 12:00am Start: 10-05-2023 End: 11-16-2023 take 2 capsules by mouth twice daily gabapentin (Neurontin) 100 MG capsule Indications: Neuropathy of both feet Take 2 capsules (200 mg) by mouth 2 times daily. 120 capsule 0 11/16/2023 Active Start: 08-24-2023 End: 08-23-2024 take 1 capsule by mouth twice daily gabapentin (Neurontin) 100 MG capsule Indications: Neuropathy of both feet Take 1 capsule (100 mg) by mouth 2 times daily. 60 capsule 0 09/21/2023 10/05/2023 Discontinued (Reorder) Handicap Placard MISC (1 source) Start: 03-09-2019 Handicap Placard MISC Indications: Osteoarthritis, unspecified osteoarthritis type, unspecified site by Does not apply route 3 years- expires 2021 1 each 0 03/09/2019 Active 24 hr isosorbide mononitrate 30 mg extended release oral tablet (9 sources) Nitrate Vasodilator Start: 11-07-2024 End: 12-05-2024 take 1 tablet by mouth once daily, then take 1 tablet by mouth every twenty-four hours Isosorbide Mononitrate 30 mg tablet extended release 24 hr Active 30 mg PO DAILY December 05, 2024 12:43pm ketoconazole 20 mg/ml medicated shampoo (20 sources) Azole Antifungal Start: 10-16-2022 End: 06-15-2024 ketoconazole (NIZOral) 2 % shampoo Indications: Seborrheic dermatitis of scalp Shampoo daily, leave on for 5-10 minutes, then rinse. 120 mL 06/17/2023 06/15/2024 Active levothyroxine sodium 0.05 mg oral tablet (20 sources) l-Thyroxine Start: 12-02-2024 take 1 tablet by mouth once daily levothyroxine (Synthroid, Levoxyl) 50 MCG tablet Indications: Hypothyroidism, unspecified type Take 1 tablet (50 mcg) by mouth daily. 90 tablet 1 12/02/2024 Active Start: 10-21-2021 End: 05-13-2024 take 1 tablet by mouth once daily Levothyroxine 50 mcg tablet Active 50 ug PO DAILY October 21, 2021 12:00am Start: 05-02-2019 take 1 tablet by antonina th once daily levothyroxine (SYNTHROID) 50 MCG tablet Indications: Hypothyroidism, unspecified type Take 1 tablet by mouth Daily 90 tablet 1 05/02/2019 Active Start: 08-02-2018 End: 10-21-2021 take 2 tablets by mouth once daily Levothyroxine 25 mcg tablet Discontinued 50 ug PO DAILY August 02, 2018 1:00am October 21, 2021 2:42pm Start: 08-02-2018 End: 10-21-2021 take 50 ug by mouth once daily Levothyroxine Discontin ued 50 MCG PO DAILY August 02, 2018 1:00am October 21, 2021 2:42pm Levothyroxine 25 mcg cap Take by mouth. Active take 1 capsule by mo [facility] once daily before breakfast levothyroxine 50 mcg cap Take 50 mcg by mouth daily before breakfast. Active 24 hr metFORMIN hydrochloride 500 mg extended release oral tablet (20 sources) Biguanide Start: 12-02-2024 take 2 tablets by mouth twice daily at mealtime metFORMIN XR (Glucophage-XR) 500 MG 24 hr tablet Indications: Type 2 diabetes mellitus with obesity (CMS/HCC) (HCC) (HCC) Take 2 tablets (1,000 mg) by mouth 2 times daily (with meals). 360 tablet 1 12/02/2024 Active Start: 06-27-2024 take 2 tablets by mo [facility] twice daily at mealtime metFORMIN XR (Glucophage-XR) 500 MG 24 hr tablet Indications: Type 2 diabetes mellitus with obesity (CMS/HCC) (HCC) (HCC) Take 2 tablets (1,000 mg) by mouth 2 times daily (with meals). 360 tablet 1 06/27/2024 Active Start: 12-10-2023 End: 06-27-2024 take 2 tablets by mouth every twenty-four hours in the morning metFORMIN XR (Glucophage-XR) 500 MG 24 hr tablet Take 2 tablets (1,000 mg) by mouth in the morning and 2 tablets (1,000 mg) in the evening. Take with meals. 360 tablet 1 12/10/2023 06/27/2024 Discontinued (Reorder) Start: 09-23-2022 End: 06-16-2023 take 2 tablets by mouth every twenty-four hours in the morning metFORMIN XR (Glucophage-XR) 500 MG 24 hr tablet Indications: Diabetes mellitus type 2 in obese (HCC) Take 2 tablets (1,000 mg) by mouth in the morning and 2 tablets (1,000 mg) in the evening. Take with meals. 360 tablet 1 06/17/2023 Active Start: 06-04-2022 take 1 tablet by [facility] every twenty-four hours in the morning metFORMIN XR (Glucophage-XR) 500 MG 24 hr tablet Take 1,000 mg by mouth in the morning and 1,000 mg in the evening. Take with meals. 0 06/04/2022 Active Start: 06-08-2019 take 2 tablets by mo uth twice daily at mealtime metFORMIN (GLUCOPHAGE-XR) 500 MG extended release tablet Indications: Diabetes mellitus type 2 in obese (HCC) TAKE 2 TABLETS BY MOUTH TWICE DAILY WITH MEALS 360 tablet 1 06/08/2019 Active Start: 09-09-2017 End: 10-16-2018 take 1 tablet by mouth twice daily Metformin 1,000 mg tablet Active 1000 mg PO TWICE A DAY 0 October 16, 2018 8:30am On Hold: Resume on 12/08/24. Start: 07-22-2017 End: 09-09-2017 take 1 tablet by mouth twice daily Metformin 750 mg tablet extended release 24 hr Discontinued 750 mg PO TWICE A DAY July 22, 2017 1:00am September 09, 2017 10:21am Start: 12-26-2016 take 1 tablet by antonina th once daily at breakfast metFORMIN ER (GLUCOPHAGE XR) 750 mg 24 hr tablet Take 750 mg by mouth daily with breakfast. 12/26/2016 Active Start: 09-11-2015 End: 07-22-2017 take 2 tablets by mouth twice daily at mealtime Metformin 500 MG tablet Discontinued 1000 mg PO TWICE DAILY WITH MEALS September 11, 2015 1:00am July 22, 2017 11:24am Start: 09-11-2015 End: 07-22-2017 take 1000 mg by mouth twice daily at mealtime Metformin Discontinued 1000 MG PO TWICE DAILY WITH MEALS September 11, 2015 1:00am July 22, 2017 11:24am take 1 tablet by antonina th once daily at breakfast metFORMIN ER (GLUCOPHAGE XR) 500 mg 24 hr tablet Take 500 mg by mouth daily with breakfast. Active 24 hr metoprolol succinate 200 mg extended release oral tablet (20 sources) beta-Adrenergic Yeyo Start: 01-17-2025 take 1 tablet by mouth once daily metoprolol succinate XL (Toprol-XL) 200 MG 24 hr tablet Indications: Congestive heart failure, unspecified HF chronicity, unspecified heart failure type (HCC) , Cardiomyopathy, unspecified type (HCC) , Atherosclerosis of coronary artery of [place] without angina pectoris, unspecified vessel or lesion type , History of ST elevation myocardial infarction (STEMI) , Primary hypertension Take 200 mg by mouth daily. 01/17/2025 Active Start: 06-08-2019 End: 02-22-2025 take 1 tablet by mouth twice daily metoprolol tartrate (Lopressor) 100 MG tablet Indications: Congestive heart failure, unspecified HF chronicity, unspecified heart failure type (HCC) , Cardiomyopathy, unspecified type (HCC) Take 1 tablet (100 mg) by mouth 2 times daily. 180 tablet 1 10/28/2024 02/22/2025 Discontinued (Dose adjustment) Start: 10-16-2018 End: 07-29-2019 take 2 tablets by mouth twice daily Metoprolol Tartrate 50 mg tablet Discontinued 100 mg PO TWICE A DAY 270 October 16, 2018 8:30am July 29, 2019 5:12pm Start: 10-16-2018 End: 07-29-2019 take 100 mg by mouth twice daily Metoprolol Tartrate Discontinued 100 MG PO TWICE A DAY 270 October 16, 2018 8:30am July 29, 2019 5:12pm Start: 09-11-2015 End: 10-16-2018 Metoprolol Tartrate 50 mg ta blet Discontinued 75 mg PO TWICE A DAY June 24, 2018 5:06pm August 02, 2018 2:41pm Start: 09-11-2015 End: 10-16-2018 take 75 mg by mouth twice daily Metoprolol Tartrate Discontinued 75 MG PO TWICE A DAY 270 June 24, 2018 5:06pm August 02, 2018 2:41pm nitroglycerin 0.4 mg sublingual tablet (20 sources) Nitrate Vasodilator Start: 11-08-2018 nitroglyce rin (Nitrostat) 0.4 MG SL tablet every 5 minutes as needed for chest pain up to 3 doses total 11/08/2018 Active Start: 10-16-2018 End: 03-27-2023 Nitroglycerin 0.4 mg tablet, sublingual Active 0.4 mg SL Q5M as needed for Chest Pain March 27, 2023 1:40pm omeprazole 20 mg delayed release oral capsule (20 sources) Proton Pump Inhibitor Start: 11-10-2024 take 1 capsule by mouth once daily omeprazole (PriLOSEC) [address] capsule Indications: Gastroesophageal reflux disease, unspecified whether esophagitis present Take 1 capsule (20 mg) by mouth daily. Do not crush or chew. 90 capsule 1 11/10/2024 Active Start: 03-18-2023 End: 04-19-2024 take 1 capsule by mouth once daily Omeprazole 20 mg capsule,delayed release(DR/EC) Active 20 mg PO DAILY April 23, 2023 12:00am Respiratory Therapy Supplies ANGIE (1 source) Start: 03-09-2019 Respiratory Th erapy Supplies ANGIE Indications: Sleep apnea, unspecified type 1 Device by Does not apply route nightly 1 Device 0 03/09/2019 Active sacubitril 49 mg / valsartan 51 mg oral tablet (20 sources) Angiotensin 2 Receptor Yeyo Start: 04-15-2024 Entresto 49-51 MG tablet 1 tablet. 04/15/2024 Active Start: 04-15-2024 End: 10-18-2024 Sacubitril-Valsartan (Entres to) 49-51 mg tablet Discontinued 1 {tbl} PO TWICE A DAY 60 April 15, 2024 5:32pm October 18, 2024 4:14pm Hold your lasix for 36 hours before starting entresto. take 1 tablet by antonina th once daily ENTRESTO 49-51 mg tablet Take 1 tablet by mouth once daily. Active traZODone hydrochloride 50 mg oral tablet (6 sources) Serotonin Reuptake Inhibitor Start: 03-10-2025 End: 03-10-2026 take 2 tablets by mouth once daily as needed for sleep traZODone (Desyrel) 50 MG tablet Indications: Insomnia, unspecified type Take 2 tablets (100 mg) by mouth Nightly as needed for sleep. 03/10/2025 03/10/2026 Active Start: 02-22-2025 End: 02-22-2026 take 1 tablet by mouth once daily as needed for sleep traZODone (Desyrel) 50 MG tablet Indications: Insomnia, unspecified type Take 1 tablet (50 mg) by mouth Nightly as needed for sleep. 30 tablet 02/22/2025 03/10/2025 Discontinued Zinc (20 sources) Start: 05-16-2020 take 50 mg by mouth once daily Zinc Active 50 MG PO DAILY May 16, 2020 2:48pm Start: 05-16-2020 End: 11-07-2024 take 1 tablet by mouth once daily Zinc 50 mg tablet Discontinued 50 mg PO DAILY May 16, 2020 12:00am November 07, 2024 10:47am Start: 05-16-2020 take 1 tablet by antonina th once daily Zinc 50 mg tablet Active 50 mg PO DAILY May 16, 2020 12:00am Start: 05-16-2020 take 50 mg by mouth once daily Zinc Active 50 MG PO DAILY May 16, 2020 12:00am zinc 100 MG tabl et Take by mouth. Active zinc 100 MG tabl et Take by mouth. 0 Active Completed/Discontinued Medications Medication Drug Class(es) Dates Sig (Normalized) Sig (Original) acetaminophen 325 mg / HYDROcodone bitartrate 5 mg oral tablet (10 sources) Opioid Agonist Start: 08-09-2021 End: 10-21-2021 Hydrocodone-Acetami nophen 1 TABLET tablet Discontinued 1 {tbl} PO EVERY 6 HOURS NEEDED as needed for Pain 04 21August 09, 2021 October 21, 2021 2:41pm Start: 08-09-2021 End: 10-21-2021 take 1 tablet by mouth every six hours as needed Hydrocodone-Acetaminophen Discontinued 1 TABLET PO EVERY 6 HOURS NEEDED 04 21August 09, 2021 October 21, 2021 2:41pm calcium carbonate 1250 mg chewable tablet (20 sources) Start: 02-18-2024 End: 11-07-2024 take 1 tablet by mouth once daily Calcium Carbonate 500 mg calcium (1,250 mg) tablet,chewable Discontinued 500 mg PO DAILY February 18, 2024 12:00am November 07, 2024 10:47am End: 06-27-2024 calcium carbonate (Tums) 500 MG chewable tablet Chew 500 mg daily. 06/27/2024 Discontinued (Med list cleanup) dapagliflozin 10 mg oral tablet (20 sources) Sodium-Glucose Cotransporter 2 Inhibitor Start: 10-07-2023 End: 12-02-2023 take 1 tablet by mouth once daily dapagliflozin (Farxiga) 10 MG tablet Indications: Diabetes mellitus type 2 in obese (HCC) , Congestive heart failure, unspecified HF chronicity, unspecified heart failure type (HCC) , Atherosclerosis of coronary artery of [place] heart without angina pectoris, unspecified vessel or lesion type Take 1 tablet (10 mg) by mouth daily. 90 tablet 0 10/07/2023 12/02/2023 Discontinued (Side effects) diphenhydrAMINE hydrochloride 25 mg oral tablet (10 sources) Histamine-1 Receptor Antagonist Start: 10-19-2018 End: 10-29-2018 take 1 tablet by mouth at bedtime as needed Diphenhydramine Hcl (Benadryl Allergy) 25 mg tablet Discontinued 25 mg PO AT BEDTIME as needed October 19, 2018 12:00am October 29, 2018 2:53pm doxycycline monohydrate 100 mg oral capsule (10 sources) Tetracycline-class Drug Start: 07-21-2018 End: 08-02-2018 take 1 capsule by mouth twice daily Doxycycline Monohydrate 100 mg capsule Discontinued 100 mg PO TWICE A DAY July 21, 2018 1:00am August 02, 2018 2:37pm empagliflozin 10 mg oral tablet (8 sources) Sodium-Glucose Cotransporter 2 Inhibitor Start: 04-23-2023 End: 01-04-2024 take 1 tablet by mouth once daily Empagliflozin (Jardiance) 10 mg tablet Discontinued 10 mg PO DAILY April 23, 2023 12:00am January 04, 2024 1:36pm famotidine 40 mg oral tablet (20 sources) Histamine-2 Receptor Antagonist Start: 11-02-2019 End: 04-23-2023 take 1 tablet by mouth at bedtime Famotidine 40 mg tablet Discontinued 40 mg PO AT BEDTIME November 02, 2019 12:00am April 23, 2023 1:37pm Start: 06-08-2019 take 1 tablet by antonina th once daily in the evening famotidine (PEPCID) 40 MG tablet Take 1 tablet by mouth every evening 90 tablet 1 06/08/2019 Active fluconazole 150 mg oral tablet (1 source) Azole Antifungal Start: 12-02-2023 End: 12-02-2023 take 1 tablet by mouth once fluconazole (Diflucan) 150 MG tablet Indications: Vaginal yeast infection Take 1 tablet (150 mg) by mouth Once for 1 dose. 1 tablet 0 12/02/2023 12/02/2023 fluticasone propionate 0.05 mg/actuat metered dose nasal spray (20 sources) Corticosteroid Start: 12-19-2021 End: 06-17-2023 take 2 spray(s) nasal route once daily fluticasone (Flonase) 50 MCG/ACT nasal spray USE 2 SPRAY(S) IN EACH NOSTRIL ONCE DAILY 0 12/19/2021 06/17/2023 Discontinued (Therapy completed) lisinopril 10 mg oral tablet (10 sources) Angiotensin Converting Enzyme Inhibitor Start: 10-16-2018 End: 12-20-2018 take 1 tablet by mouth twice daily Lisinopril 10 MG tablet Discontinued 10 mg PO TWICE A DAY October 16, 2018 12:00am December 20, 2018 4:44pm losartan potassium 50 mg oral tablet (20 sources) Angiotensin 2 Receptor Yeyo Start: 07-06-2020 End: 04-18-2024 take 1 tablet by mouth once daily Losartan 50 mg tablet Discontinued 50 mg PO DAILY June 23, 2022 1:47pm April 15, 2024 4:27pm Start: 12-20-2018 End: 07-06-2020 take 1 tablet by mouth once daily Losartan 25 mg tablet Discontinued 25 mg PO DAILY December 20, 2018 12:00am July 06, 2020 10:20am methylPREDNISolone 4 mg oral tablet (10 sources) Corticosteroid Start: 10-19-2018 End: 10-29-2018 take 1 tablet by mouth once Methylprednisolone (Medrol (Chuy)) 4 mg tablets,dose pack Discontinued 0 PO per package directions October 19, 2018 12:00am October 29, 2018 2:53pm PO PER PKG DIR naproxen 500 mg oral tablet (20 sources) Nonsteroidal Anti-inflammatory Drug Start: 10-14-2017 End: 08-02-2018 take 1 tablet by mouth twice daily as needed for pain Naproxen 500 MG tablet Discontinued 500 mg PO TWICE DAILY NEEDED as needed for Pain October 14, 2017 12:00am August 02, 2018 2:00pm Start: 07-22-2017 End: 08-02-2018 take 1 tablet by mouth every twelve hours as needed for pain Naproxen Sodium 220 mg tablet Discontinued 220 mg PO Q12H as needed for Pain July 22, 2017 1:00am August 02, 2018 2:01pm nystatin 100 unt/mg topical powder (8 sources) Polyene Antifungal Start: 03-06-2022 End: 11-17-2022 Nystop [id number] UNIT/GM powder APPLY POWDER TOPICALLY TO AFFECTED AREA THREE TIMES DAILY 0 03/06/2022 11/17/2022 Discontinued (Med list cleanup) oxyCODONE hydrochloride 5 mg oral tablet (10 sources) Opioid Agonist Start: 10-14-2017 End: 08-02-2018 take 5-10 mg by mouth every four hours as needed for pain Oxycodone 5 MG tablet Discontinued 5 - 10 mg PO EVERY 4 HOURS NEEDED as needed for Mod-Severe Pain (4-04/28) 05 02October 14, 2017 12:00am August 02, 2018 2:01pm raNITIdine 150 mg oral tablet (11 sources) Histamine-2 Receptor Antagonist Start: 09-11-2015 End: 11-02-2019 take 1 tablet by mouth twice daily Ranitidine Hcl 150 MG tablet Discontinued 150 mg PO TWICE A DAY September 11, 2015 1:00am November 02, 2019 10:02am semaglutide 3 mg oral tablet (14 sources) Start: 06-17-2023 End: 08-24-2023 take 1 tablet by mouth once daily before breakfast semaglutide (Rybelsus) 3 MG tablet Indications: Diabetes mellitus type 2 in obese (CMS/HCC) (HCC) (HCC) Take 1 tablet (3 mg) by mouth every morning (before breakfast). 30 tablet 2 06/17/2023 08/24/2023 Discontinued (Med list cleanup) Start: 03-18-2023 End: 06-17-2023 inject 0.25 mg by subcutaneous injection every week semaglutide (Ozempic) 2 MG/1.5ML solution pen-injector Indications: Diabetes mellitus type 2 in obese (CMS/HCC) (HCC) Inject 0.25 mg under the skin 1 (one) time per week. 4 each 0 03/18/2023 06/17/2023 Discontinued tiZANidine 4 mg oral tablet (20 sources) Central alpha-2 Adrenergic Agonist Start: 07-18-2022 End: 06-17-2023 take 1 tablet by mouth every six hours as needed for muscle spasms tiZANidine (Zanaflex) 4 MG tablet Indications: Trapezius strain, unspecified laterality, initial encounter Take 1 tablet (4 mg) by mouth every 6 hours as needed for muscle spasms for up to 10 days. 30 tablet 0 07/18/2022 06/17/2023 Discontinued (Therapy completed) zolpidem tartrate 10 mg oral tablet (12 sources) gamma-Aminobutyri c Acid-ergic Agonist Start: 07-09-2017 End: 10-21-2021 take 1 tablet by mouth at bedtime as needed Zolpidem 10 MG tablet Discontinued 10 mg PO AT BEDTIME NEEDED as needed for Insomnia July 09, 2017 1:00am October 21, 2021 2:42pm Problems Active Problems Problem Classification Problem Date Documented Date Episodic/Chronic Acquired foot deformities (1 source) Hallux valgus; Translations: [Bunion of right foot] 08-24-2023 Episodic Cardiac and circulatory congenital anomalies (1 source) Ventricular septal defect; Translations: [Ventricular septal defect] 03-09-2017 Chronic Cardiac dysrhythmias (18 sources) Supraventricular tachycardia; Translations: [Supraventricular tachycardia] Onset: 04-07-2017 Chronic Comment on above: S/P ablation @ [facility] 04/07/2017; Cardiac dysrhythmias (15 sources) Palpitations; Translations: [Palpitations with regular rhythm] Onset: 04-07-2017 05-16-2023 Episodic Chronic obstructive pulmonary disease and bronchiectasis (10 sources) Bronchitis; Translations: [Bronchitis, not specified as acute or chronic] 10-14-2018 Episodic Complications of surgical procedures or medical care (1 source) Drug therapy finding; Translations: [Unspecified adverse effect of drug or medicament, initial encounter] 12-02-2023 Episodic Congestive heart failure; nonhypertensive (20 sources) Congestive heart failure; Translations: [Heart failure, unspecified] Onset: 04-18-2015 04-18-2015 Chronic Coronary atherosclerosis and other heart disease (20 sources) Old myocardial infarction; Translations: [Coronary atherosclerosis] Onset: 10-25-2018 03-09-2019 Chronic Comment on above: History of drug-elut ing stent to the RCA in 2018. JULIA to the left circumflex in 2022. Successful 2.75 x 12 Resolute JULIA to the right PL per Dr. Castellon @ [facility] History of drug-elut ing stent to the RCA in 2018. JULIA to the left circumflex in 2022. JULIA to the right posterior lateral ventricular branch last month. Coronary atherosclerosis and other heart disease (20 sources) Stented coronary artery; Translations: [Presence of coronary angioplasty implant and graft] Onset: 10-15-2018 Episodic Comment on above: Successful 2.75 x 12 Resolute JULIA to the right PL per Dr. Castellon @ [facility],JULIA Mid LCX using Resolute Abdiel 2.5x8 mm 05/04/23 Successful 2.75 x 12 Resolute JULIA to the right PL per Dr. Castellon @ [facility],JULIA Mid LCX using Resolute Mcloud 2.5x8 mm 05/04/23 : Abdiel [place] JULIA: 2.5X 26 mm to MID RPLV, and 2.75 X 12 to Proximal RPLV 12/05/2024 Deficiency and other anemia (6 sources) Anemia; Translations: [Anemia, unspecified] 02-18-2024 Episodic Diabetes mellitus with complications (20 sources) Type 2 diabetes mellitus in obese; Translations: [Type 2 diabetes mellitus with other specified complication] Onset: 12-07-2019 06-08-2019 Chronic Diabetes mellitus without complication (20 sources) Type 2 diabetes mellitus without complications; Translations: [Diabetes mellitus] Onset: 03-09-2017 Chronic Disorders of lipid metabolism (20 sources) Hyperlipidemia, unspecified; Translations: [Pure hypercholesterolemia] Onset: 01-12-2007 Resolved: 08-25-2018 08-25-2018 Chronic Esophageal disorders (20 sources) Gastro-esophageal reflux disease without esophagitis; Translations: [Gastroesophageal reflux disease] Onset: 04-18-2015 04-18-2015 Chronic Essential hypertension (20 sources) Essential (primary) hypertension; Translations: [Essential hypertension] Onset: 04-07-2017 Chronic Immunizations and screening for infectious disease (6 sources) Requires diphtheria, tetanus and pertussis vaccination; Translations: [Encounter for immunization] 03-18-2023 Episodic Mycoses (1 source) Candidiasis of vagina; Translations: [Vaginal yeast infection] 12-02-2023 Episodic Nonspecific chest pain (20 sources) Chest pain; Translations: [Chest pain, unspecified] Onset: 12-06-2024 12-28-2020 Episodic Osteoarthritis (20 sources) Polyosteoarthritis, unspecified; Translations: [Osteoarthritis] Onset: 04-18-2015 04-18-2015 Chronic Other circulatory disease (4 sources) Personal history of other diseases of the circulatory system; Translations: [Personal history of other diseases of circulatory system] Onset: 04-07-2017 04-23-2023 Episodic Other circulatory disease (19 sources) History of paroxysmal supraventricular tachycardia; Translations: [Personal history of other diseases of the circulatory system] 04-23-2023 Episodic Comment on above: Status post ablation in 2017. Other connective tissue disease (1 source) Presence of right artificial knee joint; Translations: [PRESENCE RT ARTIFICIAL K] Onset: 04-07-2017 Chronic Other connective tissue disease (1 source) Dupuytren's disease of palm; Translations: [Palmar fascial fibromatosis [Dupuytren]] 10-03-2024 Episodic Other ear and sense organ disorders (2 sources) Bilateral tinnitus; Translations: [Tinnitus, bilateral] Episodic Other female genital disorders (10 sources) Simple endometrial glandular hyperplasia without atypia; Translations: [Benign endometrial hyperplasia] 10-14-2018 Chronic Other lower respiratory disease (20 sources) Dyspnea on exertion; Translations: [Dyspnea, unspecified] 12-31-2020 Episodic Other lower respiratory disease (9 sources) Dyspnea; Translations: [Dyspnea, unspecified] 04-18-2023 Episodic Other lower respiratory disease (6 sources) Other forms of dyspnea; Translations: [Other respiratory abnormalities] Onset: 12-15-2024 03-27-2023 Episodic Other nervous system disorders (3 sources) Neuropathy of lower limb; Translations: [Unspecified mononeuropathy of bilateral lower limbs] 08-24-2023 Chronic Other nervous system disorders (20 sources) Bilateral peripheral neuropathy of lower limbs; Translations: [Unspecified mononeuropathy of bilateral lower limbs] Onset: 01-08-2024 11-16-2023 Chronic Other nervous system disorders (2 sources) Unspecified mononeuropathy of bilateral lower limbs; Translations: [Unspecified mononeuropathy of bilateral lower limbs] Onset: 01-08-2024 Chronic Other nervous system disorders (9 sources) Paresthesia; Translations: [Paresthesia of skin] 04-18-2023 Episodic Other non-traumatic joint disorders (1 source) Hip pain; Translations: [Chronic pain of right hip] Episodic Other nutritional; endocrine; and metabolic disorders (4 sources) Obesity, unspecified; Translations: [OBESITY UNSPECIFIED] Onset: 04-07-2017 Chronic Other nutritional; endocrine; and metabolic disorders (20 sources) Severe obesity; Translations: [Morbid (severe) obesity due to excess calories] Onset: 09-07-2017 06-08-2019 Chronic Other nutritional; endocrine; and metabolic disorders (10 sources) Body mass index 40+ - severely obese; Translations: [Morbid (severe) obesity due to excess calories] 11-04-2021 Chronic Other nutritional; endocrine; and metabolic disorders (13 sources) Obesity; Translations: [Obesity, unspecified] Onset: 03-09-2017 11-03-2023 Chronic Other nutritional; endocrine; and metabolic disorders (2 sources) Morbid (severe) obesity due to excess calories; Translations: [Morbid (severe) obesity due to excess calories (HCC)] Onset: 06-09-2022 Chronic Other nutritional; endocrine; and metabolic disorders (2 sources) Body mass index (BMI) 40.0-44.9, adult; Translations: [Body mass index (BMI) 40.0-44.9, adult (HCC)] Onset: 06-09-2022 Chronic Other upper respiratory infections (3 sources) Viral upper respiratory tract infection; Translations: [Acute upper respiratory infection, unspecified] Onset: 10-16-2022 Episodic Rosemary-; endo-; and myocarditis; cardiomyopathy (except that caused by tuberculosis or sexually transmitted disease) (20 sources) Cardiomyopathy; Translations: [Cardiomyopathy, unspecified] Onset: 03-09-2017 03-25-2017 Chronic Residual codes; unclassified (20 sources) Sleep apnea; Translations: [Sleep apnea, unspecified] Onset: 03-09-2017 03-25-2017 Chronic Residual codes; unclassified (20 sources) Obstructive sleep apnea syndrome; Translations: [Obstructive sleep apnea (adult) (pediatric)] 10-15-2018 Chronic Residual codes; unclassified (2 sources) Sleep apnea, unspecified; Translations: [Sleep apnea, unspecified] Onset: 05-01-2022 Chronic Residual codes; unclassified (1 source) Dependent edema; Translations: [Edema, unspecified] 08-24-2023 Episodic Residual codes; unclassified (6 sources) Edema; Translations: [Edema, unspecified] 01-04-2024 Episodic Spondylosis; intervertebral disc disorders; other back problems (10 sources) Low back pain; Translations: [Low back pain] 08-17-2021 Episodic Thyroid disorders (20 sources) Hypothyroidism; Translations: [Hypothyroidism, unspecified] Onset: 04-18-2015 04-18-2015 Chronic Unclassified (3 sources) Obstructive sleep apnea (adult) (pediatric); Translations: [Body mass index (BMI) 45.0-49.9, adult] Onset: 04-07-2017 Chronic Unclassified (1 source) [facility] (current) use of oral hypoglycemic drugs; Translations: [SAP BPC ARCHITECT USE ORAL HYPOG] Onset: 04-07-2017 Unclassified (4 sources) Z95.5 - Presence of coronary angioplasty implant and graft,I25.10 - Atherosclerotic heart disease of [place] coronary artery without angina pectoris,I42.9 - Cardiomyopathy, unspecified,Z98.890 - Other specified postprocedural states,Z86.79 - Personal history of other diseases of the circulatory system,I50.9 - Heart failure, unspecified Unclassified (1 source) Obesity, class 3 (HCC); Translations: [Obesity, class 3 (HCC)] Onset: 06-09-2022 Unclassified (1 source) Obesity, class 3; Translations: [Obesity, class 3] Onset: 06-09-2022 Varicose veins of lower extremity (10 sources) Varicose veins of lower extremity; Translations: [Asymptomatic varicose veins of right lower extremity] 12-28-2020 Episodic Past or Other Problems Problem Classification Problem Date Documented Date Episodic/Chronic Other inflammatory condition of skin (20 sources) Seborrheic dermatitis of scalp; Translations: [Seborrheic dermatitis, unspecified] Onset: 10-16-2022 Episodic Other lower respiratory disease (2 sources) Dyspnea, unspecified; Translations: [Other respiratory abnormalities] Onset: 11-07-2024 Episodic Other non-traumatic joint disorders (1 source) Knee pain; Translations: [Knee pain] Resolved: 08-25-2018 08-25-2018 Episodic Other non-traumatic joint disorders (3 sources) Other specified joint disorders, right hand; Translations: [Other specified disorders of joint, hand] Onset: 06-27-2024 06-27-2024 Episodic Other nutritional; endocrine; and metabolic disorders (1 source) Abnormal weight gain; Translations: [Abnormal weight gain] Resolved: 08-25-2018 08-25-2018 Episodic Other screening for suspected conditions (not mental disorders or infectious disease) (20 sources) Cardiovascular stress test abnormal; Translations: [Abnormal result of other cardiovascular function study] Onset: 06-27-2024 03-18-2023 Episodic Other upper respiratory disease (20 sources) Nasal congestion; Translations: [Nasal congestion] Onset: 10-16-2022 Resolved: 11-17-2022 Episodic Residual codes; unclassified (20 sources) Insomnia; Translations: [Insomnia, unspecified] Onset: 03-09-2017 03-25-2017 Episodic Residual codes; unclassified (1 source) Swelling - edema - symptom; Translations: [Edema] Resolved: 03-09-2019 03-09-2019 Episodic Residual codes; unclassified (10 sources) History of radiofrequency ablation operation for arrhythmia; Translations: [Other specified postprocedural states] Onset: 03-20-2017 10-15-2018 Episodic Comment on above: S/P ablation @ [facility] 04/07/2017; Residual codes; unclassified (10 sources) History of cardiac catheterization; Translations: [Other specified postprocedural states] Onset: 08-16-2019 08-19-2019 Episodic Comment on above: LEFT MAIN: Angiograp hically normal; LEFT ANTERIOR DESCENDING ARTERY: Mild luminal irregularities DIAGONAL 1: Proximal - Mild luminal irregularities, DIAGONAL 2: Proximal - Mild luminal irregularities, CIRCUMFLEX ARTERY: PROX CIRC: eccentric: 10 % Stenosis, MID CIRC: eccentric: hazy: 25 % Stenosis; RIGHT CORONARY ARTERY: PROX RCA: Mild luminal irregularities, DISTAL RCA: Mild luminal, irregularities; RT PLV: Previously placed stent is patent per cath 08/16/19 Residual codes; unclassified (1 source) Other specified postprocedural states; Translations: [Personal history of surgery to heart and great vessels, presenting hazards to health] Onset: 03-20-2017 Episodic Sprains and strains (20 sources) Strain of trapezius muscle; Translations: [Strain of other muscles, fascia and tendons at shoulder and upper arm level, unspecified arm, initial encounter] Onset: 07-18-2022 Resolved: 03-18-2023 07-18-2022 Episodic Thyroid disorders (1 source) Other specified disorders of thyroid; Translations: [OTHER SPECIFIED DISORDER] Onset: 04-07-2017 Episodic Unclassified (4 sources) Insomnia, unspecified; Translations: [Family history of ischemic heart disease and other diseases of the circulatory system] Onset: 04-07-2017 Episodic Unclassified (1 source) Cyst of joint of hand, right 06-27-2024 Unclassified (1 source) Obesity, class 3 (HCC); Translations: [Obesity, class 3 (HCC)] Onset: 02-22-2025 Unclassified (1 source) Obesity, class 3; Translations: [Obesity, class 3] Onset: 06-27-2024 Results Test Name Value Interpretation Reference Range Facility 36on 03-15-2025 36 Yes it does come in a 100 mg tablet I changed her prescription to the 100 mg and send in a new prescription. [place] [id number] She wants to know if this medication comes in 100 mg tablets? Medication name: traZODone (Desyrel) 50 MG tablet Medication dosage: 50 mg (Miligrams Monthly quantity needed: 60 How many day supply requestin days Medication route: oral (PO) Medication administration time(s): 2 times a day (BID) If taking medication PRN, reason for taking medication: sleep If this is a controlled substance do you receive this or any other controlled medication from any other doctor or facility: No Ordering provider: Lg Date of last office visit: 02/22/25 Date of next office visit: 05/24/25 Date of last refill: (see medication tab): 03/10/25 Updated/Validated preferred pharmacy: Yes Patient instructed to contact the pharmacy prior to picking up the medication: Yes [address] 03-10-2025 Patient advised and voiced understanding. [place] [id number] She can increase the trazodone to 2 tablets nightly as needed for sleep for a total of 100 mg and see if this works any better. [place] [id number] S: Patient spoke with [facility] nurse regarding not sleeping with the Trazodone. B: Onset of symptoms ongoing. WILMER 02/22/25. A: Taking Trazodone 50 mg for sleep, takes about 9:30 pm, was told if it did not work they would increase the dose. R: Patient requesting to have the dose increased. Instructed to avoid caffeine in the evening, avoid screen time before bed, use the same routine at bedtime. Patient understands care advice. No further needs at this time. Patient instructed to call back with new or worsening symptoms. Reason for Disposition [1] Insomnia lasts > 2 weeks AND [2] no improvement after using Care Advice Protocols used: [id number] [address] 02-27-2025 36 Noted. [place] [address] Rx sent for new dose of 4.5 mg weekly. Please send in home blood sugars for review in [address] 02-24-2025 36 Message released to patient as written. Patient's further questions if applicable: Pt will wait 2 weeks Pt use [facility] pharmacy in [place] Were all questions from office addressed or relayed to the patient from encounter: Yes [facility] 36 Lm to return call- give message IRISH Ramirez CNP I just prescribed this medication for her 2 days ago. It can take some time to see if it is helpful or not. Please give it at least 2 weeks before deciding if it has been helpful or not and at that time maybe we could try a dose increase. [facility] 36 I just prescribed this medication for her 2 days ago. It can take some time to see if it is helpful or not. Please give it at least 2 weeks before deciding if it has been helpful or not and at that time maybe we could try a dose increase. [facility] 36 Name of caller: Karin Contact phone number: [phone] Relationship to Patient: patient Provider: Dr Latif Practice: [facility] Chief Complaint/Reason for Call: Pt states that the traZODone (Desyrel) 50 MG tablet is not working! Best time of day caller can be reached: any Patient advised that office/PCP has 24-48 business hours to return their call: No [facility] Comprehensive metabolic 1998 panelon 02-23-2025 Albumin [Mass/Vol] 4.5 g/dL 3.6 - 5.1 g/dL [facility] Albumin/Globulin [Mass ratio] 1.7 {ratio} [facility] ALP [Catalytic activity/Vol] 83 U/L 37 - 153 U/L [facility] ALT [Catalytic activity/Vol] 17 U/L 6 - 29 U/L [facility] AST [Catalytic activity/Vol] 23 U/L 10 - 35 U/L [facility] Bilirubin [Mass/Vol] 0.8 mg/dL 0.2 - 1 .2 mg/dL [facility] Calcium [Mass/Vol] 9.8 mg/dL 8.6 - 10. 4 mg/dL [facility] Chloride [Moles/Vol] 99 mmol/L 98 - 11 0 mmol/L [facility] CO2 [Moles/Vol] 29 mmol/L 20 - 32 mmol/L [facility] Creatinine [Mass/Vol] 0.89 mg/dL 0.50 - 1.05 mg/dL [facility] GFR/1.73 sq M.predicted among non-blacks MDRD (S/P/Bld) [Vol rate/Area] 72 mL/min/{1.73_m2} > OR = 60 mL/min/1.73m2 [facility] Globulin (S) [Mass/Vol] 2.7 g/dL S [facility] Glucose [Mass/Vol] 147 mg/dL High 65 - 99 mg/dL [facility] Comment on above: Fasting reference interval For someone without known diabetes, a glucose value >125 mg/dL indicates that they may have diabetes and this should be confirmed with a follow-up test. Potassium [Moles/Vol] 4.3 mmol/L 3.5 - 5.3 mmol/L [facility] [employer] Protein [Mass/Vol] 7.2 g/dL 6.1 - 8.1 g/dL [facility] Sodium [Moles/Vol] 139 mmol/L 135 - 146 mmol/L [facility] Urea nitrogen [Mass/Vol] 17 mg/dL 7 - 25 mg/d L [facility] Urea nitrogen/Creatinine [Mass ratio] SEE NOTE: [facility] Comment on above: Not Reported: BUN an d Creatinine are within reference range. Laboratory - Chemistry and C hemistry - challengeon 02-23-2025 TSH Qn 1.58 m[IU]/L [facility] Laboratory - Hematology and Cell countson 02-23-2025 HbA1c (Bld) [Mass fraction] 8 % High NINF - 5.7 % [facility] Comment on above: For someone without known diabetes, a hemoglobin A1c value of 6.5% or greater indicates that they may have diabetes and this should be confirmed with a follow-up test. For someone with known diabetes, a value <7% indicates that their diabetes is well controlled and a value greater than or equal to 7% indicates suboptimal control. A1c targets should be individualized based on duration of diabetes, age, comorbid conditions, and other considerations. Currently, no consensus exists regarding use of hemoglobin A1c for diagnosis of diabetes for children. Lipid 1996 panelon 5 Cholesterol [Mass/Vol] 110 mg/dL NINF - 200 mg/dL [facility] Cholesterol in HDL [Mass/Vol] 42 mg/dL Low > OR = 50 [facility] Cholesterol in LDL [Mass/Vol] 43 mg/dL mg/dL (calc) [facility] Comment on above: Reference range: <10 0 Desirable range <100 mg/dL for primary prevention; <70 mg/dL for patients with CHD or diabetic patients with > or = 2 CHD risk factors. LDL-C is now calculated using the Nash calculation, which is a validated novel method providing better accuracy than the Friedewald equation in the estimation of LDL-C. Ike LEBRON et al. MILDRED. 2013;310(19): 3419-9320 (http://education.Qinti/faq/BUX972) Cholesterol non HDL [Mass/Vol] 68 mg/dL [facility] Comment on above: For patients with di abetes plus 1 major ASCVD risk factor, treating to a non-HDL-C goal of <100 mg/dL (LDL-C of <70 mg/dL) is considered a therapeutic option. Cholesterol.total/Choles terol in HDL [Mass ratio] 2.6 {ratio} [facility] Triglyceride [Mass/Vol] 176 mg/dL High [facility] - 150 mg/dL [facility] Microalbumin/Creatinine rati o panel (U)on 02-23-2025 Albumin DL <= 20 mg/L (U) [Mass/Vol] 0.7 mg/dL See Note: [facility] Comment on above: Reference Range: Reference Range Not established Albumin/Creatinine (U) [Mass ratio] 30 High [facility] Comment on above: The ADA defines abnormalities in albumin excretion as follows: Albuminuria Category Result (mg/g creatinine) Normal to Mildly increased <30 Moderately increased 30-299 Severely increased > OR = 300 The ADA recommends that at least two of three specimens collected within a 3-6 month period be abnormal before considering a patient to be within a diagnostic category. Creatinine (U) [Mass/Vol] 23 mg/dL 20 - 275 mg/dL [facility] No Panel Informationon 02-23 Interpretation and review of laboratory results Abnormal [facility] 37on 02-22-2025 37 Personalized Preventative Plan for Yue Ibrahim - 02/22/2025 Medicare offers a range of preventative health benefits. Some of the tests and screenings are paid in full while others may be subject to a deductible, co-insurance, and / or copay. Some of these benefits include a comprehensive review of your medical history including lifestyle, illnesses that may run in your family, and various assessments and screenings as appropriate. After reviewing your medical record and screening and assessments performed today, your provider may have ordered immunizations, labs, imaging, and / or referrals for you. A list of these orders (if applicable) as well as your Preventative Care list are included within your After Visit Summary for your review. Other Preventative Recommendations: A preventive eye exam by an sustainability specialist is recommended every 1-2 years to screen for glaucoma, cataracts, macular degeneration, and other eye disorders. A preventive dental visit is recommended every 6 months. Try to get at least 150 minutes of exercise per week or 10,000 steps per day on a pedometer. You need 1200-1500mg of calcium and 2358-1856 international units of vitamin D per day. It is possible to meet your calcium requirement with diet alone, but a vitamin D supplement is usually necessary to meet this goal. When exposed to the sun, use a sunscreen that protects against both UVA and UVB radiation with an SPF of 30 or greater. Reapply every 2-3 hours or after sweating, drying off with a towel, or swimming. Always wear a seat belt when traveling in a car. Always wear a helmet when riding a bicycle or a motorcycle [facility] Office Visiton 02-22-2025 Follow-up visit [id number] Yue Ibrahim 1960 F Date Provider Department Center 02/22/2025 [id number] [facility] Family History Problem Relation Age of Onset Heart disease Brother Cancer Father Cancer Mother Diabetes Mother Heart disease Sister High Blood Pressure Father Asthma Brother Family Status - Relation Status Age at Brother Alive Father Mother Alive Sister Alive Level of Service:G0439 RI PPPS, SUBSEQ VISIT Reason for Visit and Comments: Medicare Annual Wellness Visit Subsequent [957] Blood Work [689466] Health Maintenance [872] - Mamm- agrees DM Eye- done at [facility] Dm Teeth- refused Hep C- refused [facility] Progress Noteon 02-22-2025 Progress Note - Chronic. Not at goal. Will start on PRN Trazodone for sleep. - Information provided in AVS on new medication. Orders: Comprehensive metabolic panel; Future traZODone (Desyrel) 50 MG tablet; Take 1 tablet (50 mg) by mouth Nightly as needed for sleep. [facility] Progress Note - Chronic, stable. Follow up with specialist as directed. - Continue Atorvastatin and Plavix as prescribed. Orders: Lipid panel; Future Comprehensive metabolic panel; Future [facility] Progress Note - Chronic, stable. Follow up with specialist as directed. - Continue Metoprolol and Entresto as prescribed. Orders: Lipid panel; Future Comprehensive metabolic panel; Future [facility] Progress Note - Chronic, stable. Follow up with specialist as directed. - Continue Metoprolol and Atorvastatin as prescribed. Orders: Lipid panel; Future [facility] Progress Note - Chronic, stable. Follow up with specialist as directed. - Continue Metoprolol and Entresto as prescribed. Orders: Comprehensive metabolic panel; Future [facility] Progress Note [facility] [address] [address] Dept: [phone] Dept Chief Complaint: Yue Ibrahim is an 64 y.o. female here for an annual wellness visit. Assessment/Plan : Assessment & Plan Routine general medical examination at health care facility - Encouraged a healthy diet low in cholesterol and saturated fats. - Encouraged regular exercise. Diabetes mellitus type 2 in obese (HCC) - Chronic. Not at goal. Discussed increasing Trulicity to 4.5 mg weekly pending A1c result today. - Continue Metformin as prescribed. Orders: Microalbumin / creatinine urine ratio; Future Lipid panel; Future Hemoglobin A1c; Future Comprehensive metabolic panel; Future Diabetes Foot Exam; Future Continuous Glucose Dry Cans Operator (FreeStyle [place] 3 [place]) device; Use as directed Continuous Glucose Sensor (FreeStyle [place] 3 Sensor) misc; every 14 (fourteen) days. Encounter for diabetic foot exam (HCC) Orders: Diabetes Foot Exam; Future Congestive heart failure, unspecified HF chronicity, unspecified heart failure type (HCC) - Chronic, stable. Follow up with specialist as directed. - Continue Metoprolol and Entresto as prescribed. Orders: Lipid panel; Future Comprehensive metabolic panel; Future Cardiomyopathy, unspecified type (HCC) - Chronic, stable. Follow up with specialist as directed. - Continue Metoprolol and Entresto as prescribed. Orders: Comprehensive metabolic panel; Future Atherosclerosis of coronary artery of [place] heart without angina pectoris, unspecified vessel or lesion type - Chronic, stable. Follow up with specialist as directed. - Continue Atorvastatin as prescribed. Orders: Lipid panel; Future Comprehensive metabolic panel; Future Presence of stent in coronary artery - Chronic, stable. Follow up with specialist as directed. - Continue Atorvastatin and Plavix as prescribed. Orders: Lipid panel; Future Comprehensive metabolic panel; Future History of ST elevation myocardial infarction (STEMI) - Chronic, stable. Follow up with specialist as directed. - Continue Metoprolol and Atorvastatin as prescribed. Orders: Lipid panel; Future Neuropathy of both feet - Chronic. Stable with Gabapentin. Will continue current treatment plan. Orders: Comprehensive metabolic panel; Future Handicap Placard gabapentin (Neurontin) 100 MG capsule; Take 1 capsule (100 mg) by mouth 2 times daily. Class 3 severe obesity due to excess calories with serious comorbidity and body mass index (BMI) of 40.0 to 44.9 in adult - Encouraged a healthy diet and regular exercise. - Discussed increasing Trulicity to 4 mg weekly pending lab results from today for additional weight loss potential and better management of diabetes. Orders: Comprehensive metabolic panel; Future Primary hypertension - Chronic. Stable with Entresto and Metoprolol. Will continue current treatment plan. Orders: Comprehensive metabolic panel; Future Hyperlipidemia, unspecified hyperlipidemia type - Chronic. Stable with Atorvastatin. Will continue current treatment plan. Orders: Lipid panel; Future Comprehensive metabolic panel; Future Hypothyroidism, unspecified type - Chronic. Stable with Levothyroxine. Will continue current treatment plan. Orders: TSH; Future Comprehensive metabolic panel; Future Gastroesophageal reflux disease, unspecified whether esophagitis present - Chronic. Stable with Omeprazole. Will continue current treatment plan. Orders: Comprehensive metabolic panel; Future Sleep apnea, unspecified type - Chronic. Not well controlled due to lack of use of CPAP machine. Follow up with specialist as directed. Orders: Comprehensive metabolic panel; Future Osteoarthritis of multiple joints, unspecified osteoarthritis type - Chronic. Stable with PRN use of Aleve (uses sparingly). Will continue current treatment plan. Orders: Comprehensive metabolic panel; Future Handicap Placard Insomnia, unspecified type - Chronic. Not at goal. Will start on PRN Trazodone for sleep. - Information provided in AVS on new medication. Orders: Comprehensive metabolic panel; Future traZODone (Desyrel) 50 MG tablet; Take 1 tablet (50 mg) by mouth Nightly as needed for sleep. Screening mammogram for breast cancer - Plans to get completed [facility]. Orders: Bilateral screening mammogram with tomosynthesis; Future Type 2 diabetes mellitus with hyperglycemia, without long-term current use of insulin (HCC) - Chronic. Not at goal. Discussed increasing Trulicity to 4.5 mg weekly pending A1c result today. - Continue Metformin as prescribed. Orders: Microalbumin / creatinine urine ratio; Future Hemoglobin A1c; Future Comprehensive metabolic panel; Future Diabetes Foot Exam; Future I have reviewed and reconciled the medication list with the patient today (more content not included)... [facility] Progress Note - Chronic, stable. Follow up with specialist as directed. - Continue Atorvastatin as prescribed. Orders: Lipid panel; Future Comprehensive metabolic panel; Future [facility] Progress Note - Chronic. Not at goal. Discussed increasing Trulicity to 4.5 mg weekly pending A1c result today. - Continue Metformin as prescribed. Orders: Microalbumin / creatinine urine ratio; Future Lipid panel; Future Hemoglobin A1c; Future Comprehensive metabolic panel; Future Diabetes Foot Exam; Future Continuous Glucose Dry Cans Operator (FreeStyle Bol[place]ar 3 [place]) device; Use as directed Continuous Glucose Sensor (FreeStyle Bol[place]ar 3 Sensor) misc; every 14 (fourteen) days. [facility] Progress Note - Encouraged a healthy diet and regular exercise. - Discussed increasing Trulicity to 4 mg weekly pending lab results from today for additional weight loss potential and better management of diabetes. Orders: Comprehensive metabolic panel; Future [facility] Progress Note - Chronic. Not well controlled due to lack of use of CPAP machine. Follow up with specialist as directed. Orders: Comprehensive metabolic panel; Future [facility] 36on 02-10-2025 36 Rx sent. Follow up as scheduled. [facility] 36 Ordering provider: Dr. Latif Date of last office visit: 06.27.2024 Date of next office visit: 02.22.2025 Updated/Validated preferred pharmacy: Yes Patient instructed to contact the pharmacy prior to picking up the medication: Yes (1) Medication name: dulaglutide (Trulicity) 3 MG/0.5ML Medication dosage: 3 mg (Miligrams Monthly quantity needed: 4 How many day supply requestin days Medication route: intramuscular injection (IM) Medication administration time(s): weekly If taking medication PRN, reason for taking medication: N/A If this is a controlled substance do you receive this or any other controlled medication from any other doctor or facility: No Date of last refill (see medication tab): 11.21.2024 (2) Medication name: OneTouch Verio test strip Medication dosage: NA Monthly quantity needed: 200 How many day supply requestin days Medication route: subcutaneous injection (SQ/SC) Medication administration time(s): 3 times a day (TID) If taking medication PRN, reason for taking medication: N/A If this is a controlled substance do you receive this or any other controlled medication from any other doctor or facility: No Date of last refill (see medication tab): 04.25.[address] 01-26-2025 36 Noted. Thank you [facility] 36 01-25-2025 36 Name of caller: Karin Ibrahim Contact phone number: [phone] Relationship to Patient: Patient Provider: Romulo Latif Practice: [facility] Practice Chief Complaint/Reason for Call: Reference 01/24/25 triage ticket re diarrhea. Patient wanted office to know that she is feeling a lot better today. Drank lots of fluid and diarrhea is now a soft stool. Best time of day caller can be reached: any Patient advised that office/PCP has 24-48 business hours to return their call: N/A [address] 01-24-2025 36 Noted. Agree with recommendation. [facility] 36 S: Patient called the clinical access center with complaint of severe diarrhea B: started over the weekend A: Pt complains of hourly diarrhea the last couple of days since taking her last dose of Trulicity on Thursday. She had this a few months ago and this is the first since then. She has taken Pepto bismol for sour stomach, Belching. She said since overnight last night her diarrhea is watery. She denies abdominal pain, fever or feeling too weak to stand and walk. R: I called the office back line and spoke with David Fleming. She advised ER. I called the office back line and spoke with Lucero. She advised the patient go to ER due to possible dehydration, protecting her kidneys due to her diabetes. I called th patient back and gave her RNicolas Fleming's advce. The patient want's to treat herself at home for now. She asked for some home care advice. I gave her advice but advised if she worsens please go to ER. Also, she is going to call back to see what to do about taking Fridays dose of Trulicity and let the office know how she is doing. Home care advice given to patient: FLUID THERAPY DURING MILD TO MODERATE DIARRHEA: * WATER: For mild to moderate diarrhea, water is often the best liquid to drink. You should also eat some salty foods (such as saltine crackers). This is important to make sure you are getting enough salt, sugars, and fluids to meet your body's needs. * SPORTS DRINKS: You can also drink half-strength sports drinks (such as Gatorade, Powerade) to help treat and prevent dehydration. Mix the sports drink half and half with water. Treating Diarrhea with Jmaa-Pmv-Otjhyiu Medicines DIARRHEA MEDICINE - LOPERAMIDE - EXTRA NOTES AND WARNINGS: * DO NOT use if there is a fever over 100.4 F (38.0 C) or if there is blood or mucus in the stools. * DO NOT drink tonic water. It can interact with loperamide and may cause a serious heart problem. * DO NOT take more than 8 mg per day (4 capsules) each day, or for longer than 2 days, unless told to do this by your doctor (or FIELD NATURALIST/PA). * Before taking any medicine, read all the instructions on the package. DIARRHEA MEDICINE - BISMUTH SUBSALICYLATE (SUCH PEPTO-BISMOL): * This medicine can help reduce diarrhea, vomiting, and abdominal cramping. It is available [id number] (OTC) in a drugstore. * Adult dosage: Take two Pepto-Bismol caplets or tablets, or take two tablespoons (30 ml total) of Pepto-Bismol original strength liquid, by mouth every hour (if diarrhea continues) to a maximum of 8 doses in a 24 hour period. * Do not use for more than 2 days Reason for Disposition SEVERE diarrhea (e.g., 7 or more times / day more than normal) and age > 60 years Protocols used: [id number] [facility] 36 NOTED [facility] 36on 01-23-2025 36 Refill sent. Please make notation that we will need an updated CS MA on file to obtain in her next appointment [place] [address] Reviewed chart. Refill appropriate. RX sent. [place] [address] Duplicate request [facility] [place] [address] Medication name: gabapentin (Neurontin) 100 MG capsule Medication dosage: 100 mg (Miligrams Monthly quantity needed: 60 How many day supply requestin days Medication route: oral (PO) Medication administration time(s): 2 times a day (BID) If taking medication PRN, reason for taking medication: N/A If this is a controlled substance do you receive this or any other controlled medication from any other doctor or facility: N/A Ordering provider: Debbie Date of last office visit: 06/27/24 Date of next office visit: 02/22/25 Date of last refill: (see medication tab): 12/15/24 Updated/Validated preferred pharmacy: Yes Patient instructed to contact the pharmacy prior to picking up the medication: Yes [facility] [id number] [place] [id number] Prescription Request: Last medication check: 06/27/2024 Last physical exam: 01/08/2024 Next scheduled appointment: 02/22/2025 CSA on file (date): 08/24/2023 Last urine drug screen: none Last date of refill on this medication: 12/15/2024 [facility] Cardiology Visit Reporton Cardiology Visit Report [facility] [address] [place] [address] OFFICE VISIT Date of Service: 12/21/24 MR#: [id number] Acct: [id number] Name: ALEXANDRIAYUE MCBRIDE Brittny Rep #: [id number] : 1960 Provider: Dr. Esdras Sarabia MD Age/Sex: 64/F Location: [facility] [place] Status: Signed HPI HPI History of Present Illness Details: This lady with history of nonischemic cardiomyopathy, diagnosed on cardiac MRI, coronary artery disease status post percutaneous intervention with drug-eluting stents to the left circumflex and recently to the right posterior lateral ventricular branch is here for follow-up visit. Occasional chest discomfort that she describes as sharp, lasting a few seconds only. Some shortness of breath with moderate to strenuous exertion. Denies orthopnea or PND. No ankle edema. Denies any palpitations. Intake Vital Signs 12/05/24 07:49 12/21/24 08:52 Height 5 ft 4 in 5 ft 4 in Weight: 244 lb BMI 41.8 BP 99/68 Blood Pressure Location Lt brachial Position Sitting Respiration 18 Pulse 88 Pulse Source NIBP Intake Visit Reasons: S/P [facility] 12/05 Social Worker Required: No Accompanied by: Significant Other Is patient in pain?: No Allergies clindamycin Allergy (Verified 12/21/24 14:28) Hives erythromycin base Allergy (Verified 12/21/24 14:28) Hives nitrofurantoin macrocrystalline (From Macrodantin) Allergy (Verified 12/21/24 14:28) Hives Sulfa (Sulfonamide Antibiotics) Allergy (Verified 12/21/24 14:28) Hives sulfamethoxazole (From Septra) Allergy (Verified 12/21/24 14:28) Hives trimethoprim (From Septra) Allergy (Verified 12/21/24 14:28) Hives dapagliflozin (From Farxiga) Adverse Reaction (Intermediate, Verified 12/21/24 14:28) Yeast Infection lisinopril Adverse Reaction (Intermediate, Verified 12/21/24 14:28) Dry Hacking Cough Medications ???Medication ???Instructions ???Recorded ???Confirmed ???Type aspirin 81 mg chewable tablet 81 mg PO DAILY@0800 09/11/1512/21 History coenzyme Q10 100 mg capsule 100 mg PO DAILY 08/02/18 12/21/24 History metformin 1,000 mg tablet 1,000 mg PO BID #0 tabs 10/16/18 0 12/21/24 Rx Held on 12/05/24. Instructions: Resume on 12/08/24. metoprolol tartrate 100 mg tablet 100 mg PO BID 07/29/19 12/21/24 H istory atorvastatin 40 mg tablet 40 mg PO QHS #90 tabs 11/02/1911/11 Rx ascorbic acid (vitamin C) 500 mg 500 mg PO DAILY 05/16/20 12/21/24 History tablet clopidogrel 75 mg tablet 75 mg PO DAILY #90 tabs 12/28/20 0 12/21/24 Rx levothyroxine 50 mcg tablet 50 mcg PO DAILY 10/21/21 12/21/24 History nitroglycerin 0.4 mg sublingual 0.4 mg sublingual Q5M PRN Chest 12/21/24 Rx tablet Pain #25 tabs omeprazole 20 mg capsule,delayed 20 mg PO DAILY 04/23/23 12/21/24 H istory release gabapentin 100 mg capsule 200 mg PO BID 01/04/24 12/21/24 Hi story sacubitril 49 mg-valsartan 51 mg 1 tab PO BID #180 tabs 10/18/24 Rx tablet (Entresto) dulaglutide 3 mg/0.5 mL 3 mg subcut QWEEK 11/07/24 5 History subcutaneous pen injector (Trulicity) furosemide 40 mg tablet (Lasix) 40 mg PO DAILY swelling #30 tabs 0 12/05/24 12/21/24 Rx isosorbide mononitrate 30 mg 30 mg PO DAILY #30 tabs 12/05/24 0 12/21/24 Rx tablet,extended release 24 hr Ejection fraction %: 35 Have you fallen in the past year?: No PFSH Medical History Abnormal stress test Atherosclerotic heart disease of [place] coronary artery without angina pectoris Bronchitis Cardiomyopathy Chest pain Chest pain, rule out acute myocardial infarction Coronary artery disease Diabetes mellitus SALMERON (dyspnea on exertion) Dyslipidemia Endometrial hyperplasia without atypia, simple Essential hypertension GERD (gastroesophageal reflux disease) History of PSVT (paroxysmal supraventricular tachycardia) HTN (hypertension) Hypothyroidism Mixed hyperlipidemia NSTEMI (non-ST elevated myocardial infarction) Obesity Obesity, morbid, BMI 40.0-49.9 Obstructive sleep apnea HUSSEIN (obstructive sleep apnea) Screening for colorectal cancer Supraventricular tachycardia Varicose veins of right lower extremity Surgical History H/O prior ablation treatment (04/07/17) History of History of cardiac radiofrequency ablation ( 04/07/17) History of hysterectomy History of left heart catheterization (05/04/23) History of total right knee replacement (TKR) ( 06/2014) Stented coronary artery (12/05/24) Family History Grandmother CVA (cerebral vascular accident) Mother CAD (coronary artery disease) A-fib Heart disease Father Heart disease Hyp (more content not included)... [place] [address]on 12-16-2024 36 Called patient---she states she has an appointment with Rafaela on 12-26-24 and will sign it then. [place] [address]on 12-15-2024 36 Refused, already sent [place] [address] Rx sent, OARRS report done, no inconsistencies, she needs to come in and sign a new CS agreement to continue to get medication. [place] [address] Duplicate. [place] [address] CSA Gabapentin 08/24/23 RFP [place] [address] Ordering provider: debbie Date of last office visit: 06/27/2024 Date of next office visit: 12/26/2024 Updated/Validated preferred pharmacy: yes Patient instructed to contact the pharmacy prior to picking up the medication: yes (1) Medication name: gabapentin Medication dosage: 100 mg (Miligrams Monthly quantity needed: 120 How many day supply requestin days Medication route: oral (PO) Medication administration time(s): 2 times a day (BID) If taking medication PRN, reason for taking medication: N/A If this is a controlled substance do you receive this or any other controlled medication from any other doctor or facility: No Date of last refill (see medication tab): 10/18/2024 [place] [address]on 12-06-2024 36 Okay, thank you. That is the patient's choice [place] [address] Name of caller: Karin Contact phone number: [phone] Relationship to Patient: patient Provider: Debbie Practice: [facility] Chief Complaint/Reason for Call: Patient ended up seeing Dr. Sarabia Carousel Operator 12/05/24 and ended up having two stents put in. So now has a total of four. Dr. Sarabia wanted to see why patient was so lethargic and out of breath and noticed at the bottom of heart found two blockages at 70%. [facility] was where this took place. Patient was scheduled with Rafaela 12/26/24 for transitional care appointment. Patient requested to see Rafaela and that was the soonest slot I could find on Rafaela schedule. Best time of day caller can be reached: AM Patient advised that office/PCP has 24-48 business hours to return their call: N/A Normal [facility] Anion gap in Serum or Plasma Ordered By: Esdras Sarabia on 12-06-2024 Anion gap [Moles/Vol] 14 mmol/L 12-01 [facility] BUN/creatinine ratioOrdered By: Esdras Sarabia on 12-06-2024 Urea nitrogen/Creatinine [Mass ratio] 12.7 mg/mg 05-08 [facility] Bilirubin, totalOrdered By: Esdras Sarabia on 12-06-2024 Bilirubin [Mass/Vol] 0.72 mg/dL 0.00-1.30 [facility] CBC-Complete Blood Cnt No Di ffon 12-06-2024 Erythrocyte distribution width (RBC) [Ratio] 16.1 % High 11.6-14.6 [facility] Comment on above: Performed By: #### L 100.0500, L500.4050 ####[facility] [address] [place], [address] Hematocrit (Bld) [Volume fraction] 35.4 % Low 37-47 [facility] Comment on above: Performed By: #### L 100.0500, L500.4050 ####[facility] [address] [place], [address] Hemoglobin (Bld) [Mass/Vol] 11.5 g/dL Low 12.0-15.0 [facility] Comment on above: Performed By: #### L 100.0500, L500.4050 ####[facility] [address] [place], [address] MCH (RBC) [Entitic mass] 27.6 pg Normal 27.0-32.0 [facility] Comment on above: Performed By: #### L 100.0500, L500.4050 ####[facility] [address] [place], [address] MCHC (RBC) [Mass/Vol] 32.5 g/dL Normal 32-36 [facility] Comment on above: Performed By: #### L 100.0500, L500.4050 ####[facility] [address] [place], [address] MCV (RBC) [Entitic vol] 85.1 fL Normal 81-99 [facility] Comment on above: Performed By: #### L 100.0500, L500.4050 ####[facility] [address] [place], [address] Platelet mean volume (Bld) [Entitic vol] 9.3 fL Normal 6.2-12.0 [facility] Comment on above: Performed By: #### L 100.0500, L500.4050 ####[facility] [address] [place], [address] Platelets (Bld) [#/Vol] 246 10*3/uL Normal 150-450 [facility] Comment on above: Performed By: #### L 100.0500, L500.4050 ####[facility] [address] [place], [address] RBC (Bld) [#/Vol] 4.16 10*6/uL Low 4.2-5.4 [facility] Comment on above: Performed By: #### L 100.0500, L500.4050 ####[facility] [address] [place], [address] RDW SD 49.4 fl High 35.1-43.9 [facility] Comment on above: Performed By: #### L 100.0500, L500.4050 ####[facility] [address] [place], [address] WBC (Bld) [#/Vol] 7.8 10*3/uL Normal 4.4-11.0 [facility] Comment on above: Performed By: #### L 100.0500, L500.4050 ####[facility] [address] [place], [address] Carbon dioxide, total [Moles /volume] in Central venous bloodOrdered By: Esdras Sarabia on 12-06-2024 CO2 [Moles/Vol] 19.5 mmol/L Low 21.0-32.0 [facility] Chloride assayOrdered By: Anselmo Sarabia on 12-06-2024 Chloride [Moles/Vol] 102 mmol/L 98-108 [facility] Comprehensive Metabolic Prof ilon 12-06-2024 Albumin [Mass/Vol] 3.6 g/dL Normal 3.4-4.8 [facility] Comment on above: Performed By: #### L 100.0500, L500.4050 ####[facility] [address] [place], [address] Albumin/Globulin [Mass ratio] 1.3 {ratio} Normal 0.9-2.4 [facility] Comment on above: Performed By: #### L 100.0500, L500.4050 ####[facility] [address] [place], [address] ALK PHOS 88 U/L Normal 35-104 [facility] Comment on above: Performed By: #### L 100.0500, L500.4050 ####[facility] [address] [place], [address] ALT [Catalytic activity/Vol] 15 U/L Normal <=34 [facility] Comment on above: Performed By: #### L 100.0500, L500.4050 ####[facility] [address] [place], [address] AST [Catalytic activity/Vol] 31 U/L Normal <=31 [facility] Comment on above: Performed By: #### L 100.0500, L500.4050 ####[facility] [address] [place], [address] Bilirubin [Mass/Vol] 0.72 mg/dL Normal 0.00-1.30 [facility] Comment on above: Performed By: #### L 100.0500, L500.4050 ####[facility] [address] [place], [address] BUN/CRE 12.7 RATIO Normal 10-20 [facility] Comment on above: Performed By: #### L 100.0500, L500.4050 ####[facility] [address] [place], [address] Calcium [Mass/Vol] 8.8 mg/dL Normal 7.6-11.0 [facility] Comment on above: Performed By: #### L 100.0500, L500.4050 ####[facility] [address] [place], [address] Chloride [Moles/Vol] 102 mmol/L Normal 98-108 [facility] Comment on above: Performed By: #### L 100.0500, L500.4050 ####[facility] [address] [place], [address] CO2 [Moles/Vol] 19.5 mmol/L Low 21.0-32.0 [facility] Comment on above: Performed By: #### L 100.0500, L500.4050 ####[facility] [address] [place], [address] Creatinine [Mass/Vol] 0.89 mg/dL Normal 0.70-1.20 [facility] Comment on above: Performed By: #### L 100.0500, L500.4050 ####[facility] [address] [place], [address] ECRCL 78.63 ml/min Normal 50-250 [facility] Comment on above: Performed By: #### L 100.0500, L500.4050 ####[facility] [address] [place], [address] GAP 14 Normal 5-15 [facility] Comment on above: Performed By: #### L 100.0500, L500.4050 ####[facility] [address] [place], [address] GFR/1.73 sq M.predicted among non-blacks MDRD (S/P/Bld) [Vol rate/Area] 72 mL/min/{1.73_m2} Normal >60 [facility] Comment on above: Result Comment: mL/m in/1.73m2 CKD-EPI Creatinine Equation (2020) Performed By: #### L 100.0500, L500.4050 ####[facility] [address] [place], [address] Globulin (S) [Mass/Vol] 2.9 g/dL Normal 2.2-4.2 [facility] Comment on above: Performed By: #### L 100.0500, L500.4050 ####[facility] [address] [place], [address] Glucose [Mass/Vol] 157 mg/dL High 70-99 [facility] Comment on above: Performed By: #### L 100.0500, L500.4050 ####[facility] [address] [place], [address] Potassium [Moles/Vol] 4.0 mmol/L Normal 3.3-5.1 [facility] Comment on above: Performed By: #### L 100.0500, L500.4050 ####[facility] [address] [place], [address] Sodium [Moles/Vol] 136 mmol/L Normal 133-145 [facility] Comment on above: Performed By: #### L 100.0500, L500.4050 ####[facility] [address] [place], [address] T PROT 6.5 g/dL Normal 5.9-8.4 [facility] Comment on above: Performed By: #### L 100.0500, L500.4050 ####[facility] [address] [place], [address] Urea nitrogen [Mass/Vol] 11 mg/dL Normal 4-19 [facility] Comment on above: Performed By: #### L 100.0500, L500.4050 ####[facility] [address] [place], [address] Erythrocyte distribution wid th ratioOrdered By: Esdras Sarabia on 12-06-2024 Erythrocyte distribution width (RBC) [Ratio] 16.1 % High 11.6-14.6 [facility] Erythrocyte distribution wid th standard deviationOrdered By: Esdras Sarabia on 12-06-2024 Erythrocyte distribution width (RBC) [Ratio] 49.4 fl High 35.1-43.9 [facility] Glomerular filtration rate ( GFR) estimation/1.73 sq m using serum, plasma, or whole bOrdered By: Esdras Sarabia on 12-06-2024 GFR/1.73 sq M.predicted among non-blacks MDRD (S/P/Bld) [Vol rate/Area] 72 mL/min/{1.73_m2} >60 [facility] Comment on above: mL/min/1.73m2 CKD-EP I Creatinine Equation (2020) Hematocrit Auto (Bld) [Volum e fraction]Ordered By: Esdras Sarabia on 12-06-2024 Hematocrit (Bld) [Volume fraction] 35.4 % Low 37-47 [facility] Hemoglobin measurementOrdere d By: Esdras Sarabia on 12-06-2024 Hemoglobin (Bld) [Mass/Vol] 11.5 g/dL Low 12.0-15.0 [facility] Laboratory - Chemistry and C hemistry - challengeOrdered By: Esdras Sarabia on 12-06-2024 AST [Catalytic activity/Vol] 31 U/L <32 [facility] MCV (mean corpuscular volume ) determinationOrdered By: Esdras Sarabia on 12-06-2024 MCV (RBC) [Entitic vol] 85.1 fL 81-99 [facility] Magnesiumon 12-06-2024 Magnesium [Mass/Vol] 1.6 mg/dL Normal 1.5-2.2 [facility] Comment on above: Performed By: #### L 501.5200 #### [facility] [address] [place], [address] Magnesium measurement (mass/ volume)Ordered By: Elver Mcadams on 12-06-2024 Magnesium (Unsp spec) [Mass/Vol] 1.6 mg/dL 1.5-2.2 [facility] Mean corpuscular hemoglobin (MCH) determinationOrdered By: Esdras Sarabia on 12-06-2024 MCH (RBC) [Entitic mass] 27.6 pg 27.0-32.0 [facility] Mean corpuscular hemoglobin concentration (MCHC) determinationOrdered By: Esdras Sarabia on 12-06-2024 MCHC (RBC) [Mass/Vol] 32.5 g/dL 32-36 [facility] Mean platelet volume determi nationOrdered By: Esdras Sarabia on 12-06-2024 Platelet mean volume (Bld) [Entitic vol] 9.3 fL 6.2-12.0 [facility] Platelet countOrdered By: Anselmo Sarabia on 12-06-2024 Platelets (Bld) [#/Vol] 246 10*3/uL 150-450 [facility] Potassium measurement (mass/ volume)Ordered By: Esdras Sarabia on 12-06-2024 Potassium (Unsp spec) [Mass/Vol] 4.0 mmol/L 3.3-5.1 [facility] RBC Auto (Bld) [#/Vol]Ordere d By: Esdras Sarabia on 12-06-2024 RBC (Bld) [#/Vol] 4.16 10*6/uL Low 4.2-5.4 [facility] Serum creatinine measurement (mass/volume)Ordered By: Esdras Sarabia on 12-06-2024 Creatinine [Mass/Vol] 0.89 mg/dL 0.70-1.20 [facility] Serum globulin measurementOr dered By: Esdras Sarabia on 12-06-2024 Globulin (S) [Mass/Vol] 2.9 g/dL 2.2-4.2 [facility] Serum glucose measurement (m ass/volume)Ordered By: Esdras Sarabia on 12-06-2024 Glucose [Mass/Vol] 157 mg/dL High 70-99 [facility] Serum or plasma alanine marcus otransferase (ALT) measurementOrdered By: Esdras Sarabia on 12-06-2024 ALT [Catalytic activity/Vol] 15 U/L <35 [facility] Serum or plasma albumin alyse urement (mass/volume)Ordered By: Esdras Sarabia on 12-06-2024 Albumin [Mass/Vol] 3.6 g/dL 3.4-4.8 [facility] Serum or plasma albumin/glob ulin mass ratioOrdered By: Esdras Sarabia on 12-06-2024 Albumin/Globulin [Mass ratio] 1.3 {ratio} 0.9-2.4 [facility] Serum or plasma alkaline jane sphatase measurementOrdered By: Esdras Sarabia on 12-06-2024 ALP [Catalytic activity/Vol] 88 U/L 35-104 [facility] Serum or plasma calcium alyse urement (mass/volume)Ordered By: Esdras Sarabia on 12-06-2024 Calcium [Mass/Vol] 8.8 mg/dL 7.6-11.0 [facility] Serum or plasma urea nitroge n measurement (mass/volume)Ordered By: Esdras Sarabia on 12-06-2024 Urea nitrogen [Mass/Vol] 11 mg/dL 4-19 [facility] Sodium levelOrdered By: Alexx Sarabia on 12-06-2024 Sodium [Moles/Vol] 136 mmol/L 133-145 [facility] Total proteinOrdered By: Daneil Sarabia on 12-06-2024 Protein [Mass/Vol] 6.5 g/dL 5.9-8.4 [facility] White blood cell (WBC) count Ordered By: Esdras Sarabia on 12-06-2024 WBC (Bld) [#/Vol] 7.8 10*3/uL 4.4-11.0 [facility] 12 Lead EKGon 12-05-2024 12 Lead EKG [facility] [address] [place] [address] 12 Lead EKG 12/05/24 1342 MR#: [id number] Acct: [id number] Name: YUE IBRAHIM Rep #: [id number] : 1960 64 From: Elver Mcadams MD Attending Dr: Dr. Esdras Sarabia MD Status: DIS ALYSSA Ordering Dr: Esdras Sarabia MD Date: 12/05/24 Location: [facility] Sex: F C Admitted: 12/05/24 Test Reason : POST PCI Blood Pressure : */* mmHG Vent. Rate : 87 BPM Atrial Rate : 87 BPM P-R Int : 140 ms QRS Dur : 84 ms QT Int : 366 ms P-R-T Axes : 40 -18 83 degrees QTcB Int : 440 ms Normal sinus rhythm Low voltage QRS Nonspecific T wave abnormality Abnormal ECG When compared with ECG of 08-May-2023 12:03, No significant change was found Confirmed by ELVER MCADAMS MD ([id number]), editor continuity and script MAIKEL JEFF ([id number]) on 12/06/2024 1:32:20 PM Referred By: Esdras Sarabia Confirmed By: ELVER MCADAMS MD 12/06/24 1332 Date Elver Mcadams MD CC: ABDI Castanon; Dr. Esdras Sarabia MD Signed Normal [facility] ACT Activated Clotting Timeo n 12-05-2024 ACTk CLOT TIME 245 sec High 74-137 [facility] Comment on above: Performed By: #### L 9100.0100 #### [facility] [address] [place], [address] ACTk CLOT TIME 216 sec High 74-137 [facility] Comment on above: Performed By: #### L 9100.0100 #### [facility] [address] [place], [address] Cardiac Cath Interventionon 12-05-2024 Cardiac Cath Intervention [facility] Imaging Services [address] [place] [address] Cardiac Cath Intervention MR#: [id number] Acct: [id number] Name: YUE IBRAHIM Rep #: [id number] : 1960 64 From: Esdras Sarabia MD PCP: ABDI Day Status:ADM ALYSSA Patient Name: YUE IBRAHIM Study Date: 12/05/2024 Performing: Esdras Sarabia MD Ht: 64 inches 162.56 cm : 1960 Wt: 249.3 lbs 112.94 kg Age: 64 Gender: female BSA: 2.15 PROCEDURE(S) PERFORMED DC02-(34092)[facility]/COR IC12-(94076/C9600)DE S W/WO PTCA, SINGLE CORONARY ARTERY CLINICAL PROFILE AND CO-MORBIDITIES Indications: Other Heart Failure: NYHA Class: 2, Newly Diagnosed: No, Heart Failure Type: Systolic Stress/Imaging Stress Test w/SPECT MPI: Yes Result: Positive Intermediate Risk Stress Test with SPECT MPI: Positive Intermediate Risk CAD Presentations: Other: Dyspnea on exertion CONCLUSIONS 40% Mid LAD; 60% D1 Stent to Mid LCX patent 30% Prox RCA; 70% Prox RPLV, 70% Mid RPLV Successful JULIA Mid RPLV using Mcloud Highland 2.5x26 mm Successful JULIA Prox RPLV using Abdiel Highland 2.75x12 mm RECOMMENDATIONS ASA Indefinitley P2Y12 inhibitors for atleast 6 months Risk factor modification DESCRIPTION OF PROCEDURE The patient arrived to the procedure lab. The risks and benefits of the procedure as well as a full description of our services here and lack of surgical backup were fully explained to the patient and/or their significant other prior to the catheterization. The Timeout was completed, verifying the correct patient and procedure. The patient's procedural site was prepped and draped in the usual fashion. Local anesthetic was given subcutaneously to right radial region with Lidocaine 2%. Local anesthetic was given subcutaneously to right groin region with Lidocaine 2%. Using a modified Seldinger technique, and ultrasound guidance,arterial access was obtained via the right femoral artery, a 5Fr sheath was inserted.. Left Coronary Artery selective angiography was performed in multiple views using a 5 Fr. JL4 catheter. Right Coronary Artery selective angiography was then performed in multiple views using a 5 Fr. 3DRC (Sourav) catheterThe images were reviewed and options discussed. A decision was then made to proceed with an Intervention, IVUS or other adjunct procedure. Arterial sheath was exchanged for a 6 Fr Sheath. 3DRC Guide catheter was inserted and engaged into the RCA. Runthrough Guide wire was advanced to the 1st RPL. Highland Mcloud 2.50x30 Drug Eluting stent was inserted. Drug Eluting stent was removed intact, failed to cross lesion Highland Mcloud 2.50x26 Drug Eluting stent was inserted. Angiogram performed post stent deployment. NC Emerge 2.50x15 Balloon catheter was inserted. Highland Mcloud 2.75x12 Drug Eluting stent was inserted. Angiogram performed post stent deployment. NC Emerge 2.75x12 Balloon catheter was inserted. Angiogram performed post balloon dilatation. The arterial sheath was pulled and a Perclose closure device was deployed for hemostasis CORONARY ANGIOGRAPHY LEFT MAIN: Angiographically normal LEFT ANTERIOR DESCENDING ARTERY: LAD: Tubular 40% Mid lesion in LAD DIAGONAL 1: Tubular 60% Ostial lesion in 1st Diagonal OM 1: Tubular 50% Proximal lesion in 1st OM RIGHT CORONARY ARTERY: RCA: Tubular 30% Proximal lesion in RCA RPLS: Tubular 70% Proximal lesion in RPL1 Tubular 70% Mid lesion in RPL1 INTERVENTION INFORMATION LESION SITE: RPL (2nd) Lesion Complexity: High/C, lesion length: 24 mm, In-stent restenosis: No Pre Stenosis: 70 % Pre intervention MARISOL flow: 3 PROCEDURE: Drug Eluting Stent with post dilatation Post Stenosis: 0 % Post intervention MARISOL flow: 3 Lesion Devices: Terumo .014 180cm Runthrough Extra Floppy straight Cordis 6 Fr 3DRC 100cm Guide Catheter Dubb 2.50 x 26 ABDIEL FRONTIER JULIA [employer] NC EMERGE MR 2.50x15 BALLOON [employer] Sci NC EMERGE MR 2.75x12 BALLOON LESION SITE: RPL (2nd) In-stent restenosis: No, Lesion Complexity: Non-High/Non-C, lesion length: 10 mm Pre Stenosis: 70 % Pre intervention MARISOL flow: 3 PROCEDURE: Drug Eluting Stent with post dilatation Post Stenosis: 0 % Post intervention MARISOL flow: 3 Lesion Devices: Terumo .014 180cm Runthrough Extra Floppy straight Cordis 6 Fr 3DRC 100cm Guide Catheter Medtronic 2.75 x 12 ABDIEL FRONTIER JULIA [employer] NC EMERGE MR 2.75x12 BALLOON COMPLICATIONS No Complications PROCEDURE MEDICATIONS Versed 1 mg IV Fentanyl 50 mcg IV Versed 1 mg IV Fentanyl 50 mcg IV Oxygen: 2 L/min via nasal cannula Heparin 7000 unit(s) IV 12/05/2024 11:52:33 Heparin 2000 unit(s) IV 12/05/2024 12:02:31 Heparin 3000 unit(s) IV 12/05/2024 12:38:07 Nitro Tab 0.4 mg PO 12/05/2024 11:24:24 Nitro 200 mcg IC 12/05/2024 12:20:04 Plavix 300 mg PO 12/05/2024 12:39:54 IV Bolus: (more content not included)... Normal [facility] Cardiac catheterization repo rtOrdered By: Esdras Sarabia on 12-05-2024 Cardiac catheterization study [facility] Imaging Services [address] [place] [id number] Cardiac Cath Intervention MR#: [id number] Acct: [id number] Name: YUE IBRAHIM Rep #:[id number] : 1960 64 From: Esdras Sarabia MD PCP: ABDI Day Status:ADM ALYSSA Patient Name: YUE IBRAHIM Study Date: 12/05/2024 Performing: Esdras Sarabia MD Ht: 64 inches 162.56 cm : 1960 Wt: 249.3 lbs 112.94 kg Age: 64 Gender: female BSA: 2.15 PROCEDURE(S) PERFORMED DC02-(86192)[facility]/COR IC12-(16715/C9600)DE S W/WO PTCA, SINGLE CORONARY ARTERY CLINICAL PROFILE AND CO-MORBIDITIES Indications: Other Heart Failure: NYHA Class: 2, Newly Diagnosed: No, Heart Failure Type: Systolic Stress/Imaging Stress Test w/SPECT MPI: Yes Result: Positive Intermediate Risk Stress Test with SPECT MPI: Positive Intermediate Risk CAD Presentations: Other: Dyspnea on exertion CONCLUSIONS 40% Mid LAD; 60% D1 Stent to Mid LCX patent 30% Prox RCA; 70% Prox RPLV, 70% Mid RPLV Successful JULIA Mid RPLV using Abdiel Highland 2.5x26 mm Successful JULIA Prox RPLV using Mcloud Highland 2.75x12 mm RECOMMENDATIONS ASA Indefinitley P2Y12 inhibitors for atleast 6 months Risk factor modification DESCRIPTION OF PROCEDURE The patient arrived to the procedure lab. The risks and benefits of the procedure as well as a full description of our services here and lack of surgical backup were fully explained to the patient and/or their significant other prior to the catheterization. The Timeout was completed, verifying the correct patient and procedure. The patient's procedural site was prepped and draped in the usual fashion. Local anesthetic was given subcutaneously to right radial region with Lidocaine 2%. Local anesthetic was given subcutaneously to right groin region with Lidocaine 2%. Using a modified Seldinger technique, and ultrasound guidance,arterial access was obtained via the right femoral artery, a 5Fr sheath was inserted.. Left Coronary Artery selective angiography was performed in multiple views using a 5 Fr. JL4 catheter. Right Coronary Artery selective angiography was then performed in multiple views using a 5 Fr. 3DRC (Sourav) catheterThe images were reviewed and options discussed. A decision was then made to proceed with an Intervention, IVUS or other adjunct procedure. Arterial sheath was exchanged for a 6 Fr Sheath. 3DRC Guide catheter was inserted and engaged into the RCA. Runthrough Guide wire was advanced to the 1st RPL. Highland Mcloud 2.50x30 Drug Eluting stent was inserted. Drug Eluting stent was removed intact, failed to cross lesion Highland Mcloud 2.50x26 Drug Eluting stent was inserted. Angiogram performed post stent deployment. NC Emerge 2.50x15 Balloon catheter was inserted. Highland Mcloud 2.75x12 Drug Eluting stent was inserted. Angiogram performed post stent deployment. NC Emerge 2.75x12 Balloon catheter was inserted. Angiogram performed post balloon dilatation. The arterial sheath was pulled and a Perclose closure device was deployed for hemostasis CORONARY ANGIOGRAPHY LEFT MAIN: Angiographically normal LEFT ANTERIOR DESCENDING ARTERY: LAD: Tubular 40% Mid lesion in LAD DIAGONAL 1: Tubular 60% Ostial lesion in 1st Diagonal OM 1: Tubular 50% Proximal lesion in 1st OM RIGHT CORONARY ARTERY: RCA: Tubular 30% Proximal lesion in RCA RPLS: Tubular 70% Proximal lesion in RPL1 Tubular 70% Mid lesion in RPL1 INTERVENTION INFORMATION LESION SITE: RPL (2nd) Lesion Complexity: High/C, lesion length: 24 mm, In-stent restenosis: No Pre Stenosis: 70 % Pre intervention MARISOL flow: 3 PROCEDURE: Drug Eluting Stent with post dilatation Post Stenosis: 0 % Post intervention MARISOL flow: 3 Lesion Devices: Terumo .014 180cm Runthrough Extra Floppy straight Cordis 6 Fr 3DRC 100cm Guide Catheter Medtronic 2.50 x 26 ABDIEL FRONTIER JULIA Amauri Sci NC EMERGE MR 2.50x15 BALLOON Amauri Sci NC EMERGE MR 2.75x12 BALLOON LESION SITE: RPL (2nd) In-stent restenosis: No, Lesion Complexity: Non-High/Non-C, lesion length: 10 mm Pre Stenosis: 70 % Pre intervention MARISOL flow: 3 PROCEDURE: Drug Eluting Stent with post dilatation Post Stenosis: 0 % Post intervention MARISOL flow: 3 Lesion Devices: Terumo .014 180cm Runthrough Extra Floppy straight Cordis 6 Fr 3DRC 100cm Guide Catheter Medtronic 2.75 x 12 ABDIEL FRONTIER JULIA [employer]uri Sci NC EMERGE MR 2.75x12 BALLOON COMPLICATIONS No Complications PROCEDURE MEDICATIONS Versed 1 mg IV Fentanyl 50 mcg IV Versed 1 mg IV Fentanyl 50 mcg IV Oxygen: 2 L/min via nasal cannula Heparin 7000 unit(s) IV 12/05/2024 11:52:33 Heparin 2000 unit(s) IV 12/05/2024 12:02:31 Heparin 3000 unit(s) IV 12/05/2024 12:38:07 Nitro Tab 0.4 mg PO 12/05/2024 11:24:24 Nitro 200 mcg IC 12/05/2024 12:20:04 Plavix 300 mg PO 12/05/2024 12:39:54 IV Bolus: .9 NaCl 300 ml total 12/05/2024 12:29:22 SUMMARY OF HEMODYNAMIC DATA Time AIR REST ECG 07:50:41 AO 130/87 (104) SA 11:38:28 AO 131/83 (104) 11:56:38 AO 116/82 (97) 12:24:12 Signed By Esdras Sarabia (more content not included)... [facility] Work Phone: Discharge Instructionon 11-17 Discharge Instruction [facility] Medical Records Department [address] [place] [address] Instructions for Home/Discharge Instructions 12/05/24 1244 MR#: [id number] Acct: [id number] Name: YUE IBRAHIM Rep #: [id number] : 1960 64 From: Esdras Sarabia MD PCP: Rafaela Castanon NP-C Status:REG SDC Discharge Instructions Diet Discharge Diet: 2000 Calorie Control Diet DC O2, CPAP, BIPAP needs Home O2 Discharge instructions: No Dressing / Incision Discharge Activity: - (No heavy lifting bending or strenuous physical activity for 1 week) May resume sexual activity in: 1-2 weeks Dressing / Incision Call your doctor if your incision/area has: Continuous Slow Oozing, Sudden Increased Bleeding, Increased Pain/ Swelling, Increased Redness, Foul Smelling Discharge and Swelling at the incision site Call your doctor if you observe: Fever of 101 or Higher, Coldness, Increased Pain and Numbness or Tingling Follow Up Care Please Follow Up With: Esdras Sarabia MD When: 2-4 weeks Test Results: Test results from this visit will be discussed in further detail at your follow-up appointment, if applicable. Discharge Plan Admission Attending Provider: Esdras Sarabia Primary Care Provider: Rafaela Castanon NP Instructions Print Language: Ghanaian Discharge Orders/Prescriptions Prescriptions: Continued coenzyme Q10 100 mg capsule 100 mg PO DAILY atorvastatin 40 mg tablet 40 mg PO QHS Qty: 90 3RF ascorbic acid (vitamin C) 500 mg tablet 500 mg PO DAILY clopidogrel 75 mg tablet 75 mg PO DAILY Qty: 90 3RF levothyroxine 50 mcg tablet 50 mcg PO DAILY nitroglycerin 0.4 mg tablet, sublingual 0.4 mg SUBLINGUAL Q5M PRN (Reason: Chest Pain) Qty: 25 0RF omeprazole 20 mg capsule,delayed release(DR/EC) 20 mg PO DAILY gabapentin 100 mg capsule 200 mg PO BID Trulicity 3 mg/0.5 mL pen injector 3 mg subcut QWEEK Patient Comments: [NO ORIGINAL SIG] aspirin 81 MG tablet,chewable 81 mg PO DAILY@0800 metoprolol tartrate 100 mg tablet 100 mg PO BID sacubitril-valsartan [Entresto] 49-51 mg tablet 1 tab PO BID Qty: 180 3RF Changed furosemide [Lasix] 40 mg tablet 40 mg PO DAILY Qty: 30 6RF isosorbide mononitrate 30 mg tablet extended release 24 hr 30 mg PO DAILY Qty: 30 6RF Held metformin 1,000 mg tablet 1,000 mg PO BID Qty: 0 0RF Hold Instructions: Resume on 12/08/24. Referrals / Follow Up: Rafaela Castanon NP, FIELD NATURALIST-C [Primary Care Provider] - Disposition Disposition (needs filled in before D/C Order can be placed): Home, Self Care 12/05/24 1245 Esdras Sarabia MD CC: FIELD NATURALIST-C Rafaela Castanon Signed [facility] 36on 12-02-2024 36 Rx sent. Follow up as scheduled. [facility] 36 Ordering provider: Date of last office visit: 06/27/24 Date of next office visit: 01/11/25 Updated/Validated preferred pharmacy: Yes Patient instructed to contact the pharmacy prior to picking up the medication: Yes (1) Medication name: Levothyroxine Medication dosage: 50 mcg (Micrograms) Monthly quantity needed: 90 How many day supply requestin days Medication route: oral (PO) Medication administration time(s): daily If taking medication PRN, reason for taking medication: N/A If this is a controlled substance do you receive this or any other controlled medication from any other doctor or facility: N/A Date of last refill (see medication tab): 05/13/24 (2) Medication name: Metformin Medication dosage: 500 mg (Miligrams Monthly quantity needed: 360 How many day supply requestin days Medication route: oral (PO) Medication administration time(s): 2 times a day (BID) If taking medication PRN, reason for taking medication: N/A If this is a controlled substance do you receive this or any other controlled medication from any other doctor or facility: N/A Date of last refill (see medication tab): 06/27/24 Normal [facility] Angiotensin Convert Enzymeon 11-30-2024 ANGIOT-CONV.ENZ 46 U/L Normal [facility] Comment on above: Result Comment: Perf ormed at: - [facility] [address] [id number] Beef Specialist: Minh Fajardo PhD, Phone: [phone] Performed By: #### L 3100.6900, L300.3900 #### [facility] [address] [facility] [place], [place], [id number] Chest PA and Lateralon 11-29 Chest PA and Lateral [facility] [address] [place], [place] [id number] Chest PA and Lateral MR#: [id number] Acct: [id number] Name: YUE IBRAHIM Rep #: [id number] : 1960 F 64 From: Marleny Singh MD PCP: ABDI Day Status: REG CLI Study: Chest PA and Lateral Date of Exam: 11/29/24 Exam# [id number] Ordering Dr: Esdras Sarabia MD PROCEDURE: CHEST PA AND LATERAL 11/29/2024 REASON FOR EXAM: CHEST PAIN, SOB TECHNIQUE: Frontal and lateral views of the chest. COMPARISON: 05/08/2023 FINDINGS: The lungs appear clear. No pleural effusion. Pulmonary vascularity appears within limits. The cardiac and mediastinal contours appear within limits and unchanged. Status post cholecystectomy again noted. Visualized osseous structures appear unchanged. RAD/Chest PA and Lateral IMPRESSION: No evidence of acute disease. Reading Location: [id number] CC: ABDI Castanon; Dr. Esdras Sarabia MD Gas Cutter: Signed Normal [facility] International normalized rat io (INR) calculationOrdered By: Esdras Sarabia on 11-29-2024 INR Coag (Bld) [Relative time] 1.0 {INR} [facility] Prothrombin Time w/INRon INR Coag (PPP) [Relative time] 1.0 {INR} Normal [facility] Comment on above: Performed By: #### L 3100.6900, L300.3900 #### [facility] [address] [place], [address] PT Coag (PPP) [Time] 13.7 s Normal 11.7-14.9 [facility] Comment on above: Performed By: #### L 3100.6900, L300.3900 #### [facility] [address] [place], [address] Prothrombin timeOrdered By: Esdras Sarabia on 11-29-2024 PT Coag (PPP) [Time] 13.7 s 11.7-14.9 [facility] Serum or plasma angiotensin converting enzyme measurement (enzymatic activity/volume)Ordered By: Esdras Sarabia on 11-29-2024 Angiotensin converting enzyme [Catalytic activity/Vol] 46 U/L 14-82 [facility] Comment on above: Performed at: [place] [id number] Director: Minh Fajardo PhD, Phone: [phone] 36on 11-21-2024 36 Pt notified and understood [facility] 36 Noted see other TE. [facility] 36 Pt did say when I spoke with her cardiology said new medication would not have any effect on her bs [facility] 36 Addressed in another TE [facility] 36on 11-18-2024 36 I recommend increasing her Trulicity dose to 3 mg for better blood sugar control. If she cannot tolerate this due to side effects and with all her other medication intolerances I think she needs to see an monorail crane operator for management of her diabetes. [facility] 36 Message released to patient as written. Rafaela Castanon APRN - LICENSED LOAN OFFICER ASSISTANT to [facility] 11/18/24 10:06 AM Note Can we please verify with Karin what dose she is currently taking of her Trulicity? 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 Patient's further questions if applicable: states is taking the lower dosage 1.5 mg Were all questions from office addressed or relayed to the patient from encounter: Yes [facility] 36 Called patient no answer left detailed voicemail advised to call office back. Please relay message to patient and forward back to office. [facility] 36 Can we please verify with Karin what dose she is currently taking of her Trulicity? 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 [facility] 36 S: Patient spoke with CAC nurse regarding elevated glucose levels B: levels increased after she started a new medication from her internet and e business project manager group a week ago. She isnt sure of the name she is calling it isopoteronal. She was driving when she called and didn't have medications with her. A: this morning fasting glucose level was 277. Over the last week her glucose levels have been 200's to once she had a 340 result. She takes Trulicity and Metformin. She denies vomiting, shortness of breath at rest, fever. R: Patient declined office visit. She is going to call her internet and e business project manager with her concern and wanted advice from her primary care provider. Please advise. Pharmacy and allergies verified. Reason for Disposition Blood glucose 240 - 300 mg/dL (13.3 - 16.7 mmol/L) Protocols used: Diabetes - High Blood [id number] [facility] 36on 11-15-2024 36 Medication name: dulaglutide (Trulicity) 1.5 MG/0.5ML Medication dosage: 1.5 mg (Miligrams Monthly quantity needed: 4 pen How many day supply requestin days Medication route: subcutaneous injection (SQ/SC) Medication administration time(s): weekly If taking medication PRN, reason for taking medication: N/A If this is a controlled substance do you receive this or any other controlled medication from any other doctor or facility: N/A Ordering provider: Lonnie Date of last office visit: 06/27/24 Date of next office visit: 01/11/25 Date of last refill: (see medication tab): 09/05/24 Updated/Validated preferred pharmacy: Yes Patient instructed to contact the pharmacy prior to picking up the medication: Yes [facility] 36on 11-10-2024 36 Rx sent. Follow up as scheduled. [facility] 36 Medication name: omeprazole (PriLOSEC) [address] capsule Medication dosage: 20 mg (Miligrams Monthly quantity needed: 30 How many day supply requestin days Medication route: oral (PO) Medication administration time(s): daily If taking medication PRN, reason for taking medication: N/A If this is a controlled substance do you receive this or any other controlled medication from any other doctor or facility: No Ordering provider: SHIVA Day Date of last office visit: 06/27/2024 Date of next office visit: 01/11/2025 Date of last refill: (see medication tab): 06/03/2024 Updated/Validated preferred pharmacy: Yes Patient instructed to contact the pharmacy prior to picking up the medication: Yes [address] 11-09-2024 36 Name of caller: Karin Contact phone number: [phone] Relationship to Patient: patient Provider: Dr Latif Practice: [facility] Chief Complaint/Reason for Call: Patient states that this referral would be for a second opinion. She stated this would be in regards to the number of blockages and other heart issues. Please fax to [phone] Best time of day caller can be reached: any Patient advised that office/PCP has 24-48 business hours to return their call: Yes [address] 11-08-2024 36 Does not she already have a internet and e business project manager? I have never seen this patient especially not for palpitations. [place] [address] Name of caller: Karin Relationship to patient: Patient Contact phone number: [phone] Speciality referral requested for: Cardiology Diagnosis or reason for referral: Heart palpitations Name of specialist: Dr. Andrés Phillips Name of group/practice: [facility] Patient verified insurance covers referral: Unknown Patient insurance: [employer] Medicare Has patient seen this specialist in the past: no Estimated time/date patient last saw the specialist: n/a [facility] 12 Lead EKG performed by [facility] on 11-07-2024 12 Lead EKG performed by [place] [address] [place] [address] 12 Lead EKG performed by [facility] 11/07/24 1049 MR#: [id number] Acct: [id number] Name: YUE IBRAHIM Rep #: [id number] : 1960 64 From: Pascale Roblero NP FIELD NATURALIST-C Attending Dr: Pascale Roblero, FIELD NATURALIST-C Status: DEP A MB Ordering Dr: Pascale Roblero FIELD NATURALIST FIELD NATURALIST-C Date: 11/07/24 Location: [facility] Sex: F C Admitted: BMS/12 Lead EKG performed by [facility] ECG Report Interpretation ------Sinus Rhythm Low voltage in precordial leads. -Poor R-wave progression -may be secondary to pulmonary disease consider old anterior infarct. - Nonspecific T-abnormality. ABNORMAL Electronically signed on 11/09/2024 at 16:29 by Elver [employer] Version [id number] 11/09/24 1630 Date Pascale Roblero NP FIELD NATURALIST-C CC: MARILUZ-C Rafaela Castanon Date Dictated: 11/07/241048 Date Transcribed: 11/07/241048 Gas Cutter: JERRELL Signed Normal [facility] Absolute lymphocyte countOrd ered By: Pascale Roblero on 11-07-2024 Lymphocytes Auto (Unsp spec) [#/Vol] 2.87 10*3/uL 0.83-4.51 [facility] Absolute neutrophil countOrd ered By: Pascale Roblero on 11-07-2024 Neutrophils (Bld) [#/Vol] 5.9 10*3/uL 2.0-7.7 [facility] Anion gap in Serum or Plasma Ordered By: Pascale Roblero on 11-07-2024 Anion gap [Moles/Vol] 14 mmol/L 5-15 [facility] Automated lymphocyte count a s percentage of total leukocytesOrdered By: Pascale Roblero on 11-07-2024 Lymphocytes/100 WBC Auto (Unsp spec) 30.2 % - [facility] BUN/creatinine ratioOrdered By: Pascale Roblero on 11-07-2024 Urea nitrogen/Creatinine [Mass ratio] 16.8 mg/mg - [facility] Basic Metabolic Profile (BMP )on 11-07-2024 BUN/CRE 16.8 RATIO Normal - [facility] Comment on above: Performed By: #### L 100.0100, L503.7505, L500.2500 #### [facility] [address] [place], [address] Calcium [Mass/Vol] 9.7 mg/dL Normal 7.6-11.0 [facility] Comment on above: Performed By: #### L 100.0100, L503.7505, L500.2500 #### [facility] [address] [place], [address] Chloride [Moles/Vol] 100 mmol/L Normal 98-108 [facility] Comment on above: Performed By: #### L 100.0100, L503.7505, L500.2500 #### [facility] [address] [place], [address] CO2 [Moles/Vol] 20.3 mmol/L Low 21.0-32.0 [facility] Comment on above: Performed By: #### L 100.0100, L503.7505, L500.2500 #### [facility] [address] [place], [address] Creatinine [Mass/Vol] 0.94 mg/dL Normal 0.70-1.20 [facility] Comment on above: Performed By: #### L 100.0100, L503.7505, L500.2500 #### [facility] [address] [place], [address] GAP 14 Normal 5-15 [facility] Comment on above: Performed By: #### L 100.0100, L503.7505, L500.2500 #### [facility] [address] [place], [address] GFR/1.73 sq M.predicted among non-blacks MDRD (S/P/Bld) [Vol rate/Area] 67 mL/min/{1.73_m2} Normal >60 [facility] Comment on above: Result Comment: mL/m in/1.73m2 CKD-EPI Creatinine Equation (2020) Performed By: #### L 100.0100, L503.7505, L500.2500 #### [facility] [address] [place], [address] Glucose [Mass/Vol] 262 mg/dL High 70-99 [facility] Comment on above: Performed By: #### L 100.0100, L503.7505, L500.2500 #### [facility] [address] [place], [address] Potassium [Moles/Vol] 4.8 mmol/L Normal 3.3-5.1 [facility] Comment on above: Performed By: #### L 100.0100, L503.7505, L500.2500 #### [facility] [address] [place], [address] Sodium [Moles/Vol] 135 mmol/L Normal 133-145 [facility] Comment on above: Performed By: #### L 100.0100, L503.7505, L500.2500 #### [facility] [address] [place], [address] Urea nitrogen [Mass/Vol] 16 mg/dL Normal 4-19 [facility] Comment on above: Performed By: #### L 100.0100, L503.7505, L500.2500 #### [facility] [address] [place], [address] Basophil percentageOrdered B y: Pascale Roblero on 11-07-2024 Basophils/100 WBC (Bld) 0.7 % 0-1 [facility] CBC W/Diff, Automatedon 04-2 1-2025 Absolute Lymph 2.87 X10 3/uL Normal 0.83-4.51 [facility] Comment on above: Performed By: #### L 100.0100, L503.7505, L500.2500 #### [facility] [address] [place], [address] Absolute Neut 5.9 X10 3/uL Normal 2.0-7.7 [facility] Comment on above: Performed By: #### L 100.0100, L503.7505, L500.2500 #### [facility] [address] [place], [address] Basophils/100 WBC (Bld) 0.7 % Normal 0-1 [facility] Comment on above: Performed By: #### L 100.0100, L503.7505, L500.2500 #### [facility] [address] [place], [address] Eosinophils/100 WBC (Bld) 0.8 % Normal 0-5 [facility] Comment on above: Performed By: #### L 100.0100, L503.7505, L500.2500 #### [facility] [address] [place], [address] Erythrocyte distribution width (RBC) [Ratio] 15.6 % High 11.6-14.6 [facility] Comment on above: Performed By: #### L 100.0100, L503.7505, L500.2500 #### [facility] [address] [place], [address] Hematocrit (Bld) [Volume fraction] 42.8 % Normal 37-47 [facility] Comment on above: Performed By: #### L 100.0100, L503.7505, L500.2500 #### [facility] [address] [place], [address] Hemoglobin (Bld) [Mass/Vol] 13.6 g/dL Normal 12.0-15.0 [facility] Comment on above: Performed By: #### L 100.0100, L503.7505, L500.2500 #### [facility] [address] [place], [address] IG% 0.600 Normal 0.0-0.9 [facility] Comment on above: Result Comment: IG% - Immature Granulocytes (promyelocytes, myelocytes and metamyelocytes) > 1% indicates that a LEFT SHIFT is Present. Performed By: #### L 100.0100, L503.7505, L500.2500 #### [facility] [address] [place], [address] Lymphocytes/100 WBC (Bld) 30.2 % Normal 19-41 [facility] Comment on above: Performed By: #### L 100.0100, L503.7505, L500.2500 #### [facility] [address] [place], [address] MCH (RBC) [Entitic mass] 27.4 pg Normal 27.0-32.0 [facility] Comment on above: Performed By: #### L 100.0100, L503.7505, L500.2500 #### [facility] [address] [place], [address] MCHC (RBC) [Mass/Vol] 31.8 g/dL Low 32-36 [facility] Comment on above: Performed By: #### L 100.0100, L503.7505, L500.2500 #### [facility] [address] [place], [address] MCV (RBC) [Entitic vol] 86.3 fL Normal 81-99 [facility] Comment on above: Performed By: #### L 100.0100, L503.7505, L500.2500 #### [facility] [address] [place], [address] Monocytes/100 WBC (Bld) 5.1 % Normal 0-10 [facility] Comment on above: Performed By: #### L 100.0100, L503.7505, L500.2500 #### [facility] [address] [place], [address] Neutrophils/100 WBC (Bld) 62.6 % Normal 47-70 [facility] Comment on above: Performed By: #### L 100.0100, L503.7505, L500.2500 #### [facility] [address] [place], [address] Nucleated RBC (Bld) [#/Vol] 0 10*3/uL Normal 0-5 [facility] Comment on above: Performed By: #### L 100.0100, L503.7505, L500.2500 #### [facility] [address] [place], [address] Platelet mean volume (Bld) [Entitic vol] 9.5 fL Normal 6.2-12.0 [facility] Comment on above: Performed By: #### L 100.0100, L503.7505, L500.2500 #### [facility] [address] [place], [address] Platelets (Bld) [#/Vol] 339 10*3/uL Normal 150-450 [facility] Comment on above: Performed By: #### L 100.0100, L503.7505, L500.2500 #### [facility] [address] [place], [address] RBC (Bld) [#/Vol] 4.96 10*6/uL Normal 4.2-5.4 [facility] Comment on above: Performed By: #### L 100.0100, L503.7505, L500.2500 #### [facility] [address] [place], [address] RDW SD 48.8 fl High 35.1-43.9 [facility] Comment on above: Performed By: #### L 100.0100, L503.7505, L500.2500 #### [facility] [address] [place], [address] WBC (Bld) [#/Vol] 9.5 10*3/uL Normal 4.4-11.0 [facility] Comment on above: Performed By: #### L 100.0100, L503.7505, L500.2500 #### [facility] [address] [place], [address] Carbon dioxide, total [Moles /volume] in Central venous bloodOrdered By: Pascale Roblero on 11-07-2024 CO2 [Moles/Vol] 20.3 mmol/L Low 21.0-32.0 [facility] Cardiology Visit Reporton Cardiology Visit Report [facility] [address] [place] [address] OFFICE VISIT Date of Service: 11/07/24 MR#: [id number] Acct: [id number] Name: YUE IBRAHIM Rep #: [id number] : 1960 Provider: ABDI ocasio Age/Sex: 64/F Location: [facility] [place] Status: Signed HPI HPI History of Present Illness Details: This is a 64 year old lady who presents to the office today for a cardiovascular follow up visit. She has a history of coronary artery disease, cardiomyopathy, hypertension and diabetes mellitus. She has had cardiac MRI done. It showed LVEF of 40%. Findings were considered to be compatible with nonischemic cardiomyopathy with possibility of sarcoidosis. From a cardiac standpoint, the patient is doing well. She does acknowledge palpitations. She states this occurs daily. She does have occasional chest pain. She describes this as a twinge sensation. She denies any pressure or heaviness. She does acknowledge SOB with exertion. She denies Orthopnea, and PND. She does not have bleeding issues; no blood in urine, stool, or nosebleeds. She does acknowledge a decrease in energy level. She denies myalgias, or claudication. She does not have edema, or sudden weight gain. She does have occasional lightheadedness with palpitations. She denies dizziness, syncopal or near syncopal episodes, and headaches. Intake Vital Signs 08/16/24 08:34 11/07/24 07:40 Height 5 ft 4 in 5 ft 4 in Weight: 249 lb BMI 42.7 BP 102/66 Blood Pressure Location Lt brachial Position Sitting Respiration 18 Pulse 81 Pulse Source Monitor Pulse Oximetry (%) 96 Intake Visit Reasons: 3 M FU Social Worker Required: No Is patient in pain?: No Allergies clindamycin Allergy (Verified 11/07/24 11:11) Hives erythromycin base Allergy (Verified 11/07/24 11:11) Hives nitrofurantoin macrocrystalline (From Macrodantin) Allergy (Verified 11/07/24 11:11) Hives Sulfa (Sulfonamide Antibiotics) Allergy (Verified 11/07/24 11:11) Hives sulfamethoxazole (From Septra) Allergy (Verified 11/07/24 11:11) Hives trimethoprim (From Septra) Allergy (Verified 11/07/24 11:11) Hives dapagliflozin (From Farga) Adverse Reaction (Intermediate, Verified 11/07/24 11:11) Yeast Infection lisinopril Adverse Reaction (Intermediate, Verified 11/07/24 11:11) Dry Hacking Cough Medications ???Medication ???Instructions ???Recorded ???Confirmed ???Type aspirin 81 mg chewable tablet 81 mg PO DAILY@0800 09/11/1511/07 History coenzyme Q10 100 mg capsule 100 mg PO DAILY 08/02/18 11/07/24 History metformin 1,000 mg tablet 1,000 mg PO BID #0 tabs 10/16/18 0 11/07/24 Rx Held on 05/04/23. Instructions: Resume on 05/07/23. metoprolol tartrate 100 mg tablet 100 mg PO BID 07/29/19 11/07/24 H istory atorvastatin 40 mg tablet 40 mg PO QHS #90 tabs 11/02/19 Rx ascorbic acid (vitamin C) 500 mg 500 mg PO DAILY 05/16/20 11/07/24 History tablet clopidogrel 75 mg tablet 75 mg PO DAILY #90 tabs 12/28/20 0 11/07/24 Rx levothyroxine 50 mcg tablet 50 mcg PO DAILY 10/21/21 11/07/24 History nitroglycerin 0.4 mg sublingual 0.4 mg sublingual Q5M PRN Chest 11/07/24 Rx tablet Pain #25 tabs omeprazole 20 mg capsule,delayed 20 mg PO DAILY 04/23/23 11/07/24 H istory release gabapentin 100 mg capsule 200 mg PO BID 01/04/24 11/07/24 Hi story furosemide 40 mg tablet (Lasix) 40 mg PO DAILY PRN swelling #30 11/07/24 Rx tabs sacubitril 49 mg-valsartan 51 mg 1 tab PO BID #180 tabs 10/18/24 Rx tablet (Entresto) dulaglutide 3 mg/0.5 mL mg subcut QWEEK 11/07/24 11/07/24 History subcutaneous pen injector (Trulicity) isosorbide mononitrate 30 mg 30 mg PO QHS #30 tabs 11/07/24 Rx tablet,extended release 24 hr Have you fallen in the past year?: No [facility] Medical History Screening for colorectal cancer Obesity Dyslipidemia History of PSVT (paroxysmal supraventricular tachycardia) Coronary artery disease Obesity, morbid, BMI 40.0-49.9 [place] (dyspnea on exertion) Varicose veins of right lower extremity Mixed hyperlipidemia Abnormal stress test Atherosclerotic heart disease of [place] coronary artery without angina pectoris Diabetes mellitus Cardiomyopathy NSTEMI (non-ST elevated myocardial infarction) Chest pain, rule out acute myocardial infarction Obstructive sleep apnea Bronchitis Essential hypertension Chest pain Endometrial hyperplasia without atypia, simple Hypothyroidism HUSSEIN (obstructive sleep apnea) GERD (gastroesophageal reflux disease) HTN (hypertension) Supraventricular tachycardia Surgical History Stented coronary artery (05/04 (more content not included)... Normal [facility] Chloride assayOrdered By: Krishan Roblero on 11-07-2024 Chloride [Moles/Vol] 100 mmol/L 98-108 [facility] Eosinophil percentageOrdered By: Pascale Roblero on 11-07-2024 Eosinophils/100 WBC (Bld) 0.8 % 0-5 [facility] Erythrocyte distribution wid th (RBC) [Ratio]Ordered By: Pascale Roblero on 11-07-2024 Erythrocyte distribution width (RBC) [Entitic vol] 48.8 fL High 35.1-43.9 [facility] Erythrocyte distribution wid th ratioOrdered By: Pascale Roblero on 11-07-2024 Erythrocyte distribution width (RBC) [Ratio] 15.6 % High 11.6-14.6 [facility] Erythrocyte distribution wid th standard deviationOrdered By: Pascale Roblero on 11-07-2024 Erythrocyte distribution width (RBC) [Ratio] 48.8 fl High 35.1-43.9 [facility] GFR/1.73 sq M.predicted delfino g non-blacks MDRD (S/P/Bld) [Vol rate/Area]Ordered By: Pascale Roblero on 11-07-2024 Estimated GFR (MDRD) Non-Af Amer 67 >60 [facility] Comment on above: mL/min/1.73m2 CKD-EP I Creatinine Equation (2020) Glomerular filtration rate ( GFR) estimation/1.73 sq m using serum, plasma, or whole bOrdered By: Pascale Roblero on 11-07-2024 GFR/1.73 sq M.predicted among non-blacks MDRD (S/P/Bld) [Vol rate/Area] 67 mL/min/{1.73_m2} >60 [facility] Comment on above: mL/min/1.73m2 CKD-EP I Creatinine Equation (2020) Hematocrit Auto (Bld) [Volum e fraction]Ordered By: Pascale Roblero on 11-07-2024 Hematocrit (Bld) [Volume fraction] 42.8 % 37-47 [facility] Hemoglobin measurementOrdere d By: Pascale Roblero on 11-07-2024 Hemoglobin (Bld) [Mass/Vol] 13.6 g/dL 12.0-15.0 [facility] Immature granulocytes/100 WB C Auto (Bld)Ordered By: Pascale Roblero on 11-07-2024 Immature granulocytes/100 WBC (Bld) 0.600 % 0.0-0.9 [facility] Comment on above: IG% - Immature Granu locytes (promyelocytes, myelocytes and metamyelocytes) > 1% indicates that a LEFT SHIFT is Present. L503.7505on 11-07-2024 Natriuretic peptide B (Bld) [Mass/Vol] 178 pg/mL Normal <=900 [facility] Comment on above: Result Comment: Hear t Failure Unlikely: < 300 pg/mL Heart Failure Likely < 50 Years: > 450 pg/mL 50-75 Years: > 900 pg/mL >75 Years: > 1800 pg/mL Performed By: #### L 100.0100, L503.7505, L500.2500 #### [facility] [address] [place], [place], [id number] Lymphocytes Auto (Unsp spec) [#/Vol]Ordered By: Pascale Roblero on 11-07-2024 Lymphocytes (Bld) [#/Vol] 2.87 10*3/uL 0.83-4.51 [facility] Lymphocytes/100 WBC Auto (Un sp spec)Ordered By: Pascale Roblero on 11-07-2024 Lymphocytes/100 WBC (Bld) 30.2 % 19-41 [facility] MCV (mean corpuscular volume ) determinationOrdered By: Pascale Roblero on 11-07-2024 MCV (RBC) [Entitic vol] 86.3 fL 81-99 [facility] Mean corpuscular hemoglobin (MCH) determinationOrdered By: Pascale Roblero on 11-07-2024 MCH (RBC) [Entitic mass] 27.4 pg 27.0-32.0 [facility] Mean corpuscular hemoglobin concentration (MCHC) determinationOrdered By: Pascale Roblero on 11-07-2024 MCHC (RBC) [Mass/Vol] 31.8 g/dL Low 32-36 [facility] Mean platelet volume determi nationOrdered By: Pascale Roblero on 11-07-2024 Platelet mean volume (Bld) [Entitic vol] 9.5 fL 6.2-12.0 [facility] Monocyte percentageOrdered B y: Pascale Roblero on 11-07-2024 Monocytes/100 WBC (Bld) 5.1 % 0-10 [facility] Natriuretic peptide.B prohor jace N-Terminal [Mass/Vol]Ordered By: Pascale Roblero on 11-07-2024 Natriuretic peptide B (Bld) [Mass/Vol] 178 pg/mL <900 [facility] Comment on above: Heart Failure Unlike ly: < 300 pg/mLHeart Failure Likely< 50 Years: > 450 pg/mL50-75 Years: > 900 pg/mL>75 Years: > 1800 pg/mL Natriuretic peptide.B prohor jace N-Terminal [Mass/volume] in Serum or PlasmaOrdered By: Pascale Roblero on 11-07-2024 Natriuretic peptide.B prohormone N-Terminal [Mass/Vol] 178 pg/mL <900 [facility] Comment on above: Heart Failure Unlike ly: < 300 pg/mLHeart Failure Likely< 50 Years: > 450 pg/mL50-75 Years: > 900 pg/mL>75 Years: > 1800 pg/mL Neutrophil percentageOrdered By: Pascale Roblero on 11-07-2024 Neutrophils/100 WBC (Bld) 62.6 % 47-70 [facility] Nucleated red blood cell per centageOrdered By: Pascale Roblero on 11-07-2024 Nucleated RBC/100 WBC (Bld) [Ratio] 0 % 0-5 [facility] Platelet countOrdered By: Krishan Roblero on 11-07-2024 Platelets (Bld) [#/Vol] 339 10*3/uL 150-450 [facility] Potassium (Unsp spec) [Mass/ Vol]Ordered By: Pascale Roblero on 11-07-2024 Potassium [Moles/Vol] 4.8 mmol/L 3.3-5.1 [facility] Potassium measurement (mass/ volume)Ordered By: Pascale Roblero on 11-07-2024 Potassium (Unsp spec) [Mass/Vol] 4.8 mmol/L 3.3-5.1 [facility] RBC Auto (Bld) [#/Vol]Ordere d By: Pascale Roblero on 11-07-2024 RBC (Bld) [#/Vol] 4.96 10*6/uL 4.2-5.4 [facility] Serum creatinine measurement (mass/volume)Ordered By: Pascale Roblero on 11-07-2024 Creatinine [Mass/Vol] 0.94 mg/dL 0.70-1.20 [facility] Serum glucose measurement (m ass/volume)Ordered By: Pascale Roblero on 11-07-2024 Glucose [Mass/Vol] 262 mg/dL High 70-99 [facility] Serum or plasma calcium alyse urement (mass/volume)Ordered By: Pascale Roblero on 11-07-2024 Calcium [Mass/Vol] 9.7 mg/dL 7.6-11.0 [facility] Serum or plasma urea nitroge n measurement (mass/volume)Ordered By: Pascale Roblero on 11-07-2024 Urea nitrogen [Mass/Vol] 16 mg/dL 4-19 [facility] Sodium levelOrdered By: Rosie Roblero on 11-07-2024 Sodium [Moles/Vol] 135 mmol/L 133-145 [facility] White blood cell (WBC) count Ordered By: Pascale Roblero on 11-07-2024 WBC (Bld) [#/Vol] 9.5 10*3/uL 4.4-11.0 [facility] 36on 10-27-2024 36 Ordering provider: Romulo Latif Date of last office visit: 06/27/24 Date of next office visit: 01/11/25 Updated/Validated preferred pharmacy: Yes Patient instructed to contact the pharmacy prior to picking up the medication: Yes (1) Medication name: metoprolol tartrate (Lopressor) 100 MG tablet Medication dosage: 100 mg tablet Monthly quantity needed: 30 How many day supply requestin days Medication route: oral (PO) Medication administration time(s): daily If taking medication PRN, reason for taking medication: N/A If this is a controlled substance do you receive this or any other controlled medication from any other doctor or facility: No Date of last refill (see medication tab): (2) Medication name: clopidogrel (Plavix) 75 MG tablet Medication dosage: 75 mg tablet Monthly quantity needed: 30 How many day supply requestin days Medication route: oral (PO) Medication administration time(s): daily If taking medication PRN, reason for taking medication: N/A If this is a controlled substance do you receive this or any other controlled medication from any other doctor or facility: No Date of last refill (see medication tab): 04/18/24 (3) Medication name: atorvastatin (Lipitor) 40 MG tablet Medication dosage: 40 mg tablet Monthly quantity needed: 30 How many day supply requestin days Medication route: oral (PO) Medication administration time(s): daily If taking medication PRN, reason for taking medication: N/A If this is a controlled substance do you receive this or any other controlled medication from any other doctor or facility: No Date of last refill (see medication tab): 04/25/24 [facility] 36on 10-18-2024 36 CALLED PATIENT-NO ANSWER LEFT DETAILED VOICEMAIL [facility] 36 Refilled gabapentin, Entresto comes from the internet and e business project manager as far as I can tell. [facility] 36 CSA Gabapentin 08/24/23 RFP [facility] 36 Ordering provider: Rafaela Castanon CNP Date of last office visit: 06/27/24 Date of next office visit: 01/11/25 Updated/Validated preferred pharmacy: Yes Patient instructed to contact the pharmacy prior to picking up the medication: Yes (1) Medication name: gabapentin (Neurontin) 100 MG capsule Medication dosage: 100 mg (Miligrams Monthly quantity needed: 120 How many day supply requestin days Medication route: oral (PO) Medication administration time(s): 2 times a day (BID) If taking medication PRN, reason for taking medication: N/A If this is a controlled substance do you receive this or any other controlled medication from any other doctor or facility: No Date of last refill (see medication tab): 06/27/24 (2) Medication name: Entresto 49-51 MG tablet Medication dosage: 49-51 mg (Miligrams Monthly quantity needed: 60 How many day supply requestin days Medication route: oral (PO) Medication administration time(s): 2 times a day (BID) Patient stated she takes 1 tablet 2 times a day If taking medication PRN, reason for taking medication: N/A If this is a controlled substance do you receive this or any other controlled medication from any other doctor or facility: No Date of last refill (see medication tab): 04/18/24 [facility] CNOVon 10-03-2024 CNOV Office Visit (ORTHWS) YUE IBRAHIM ([id number]) 1960 F Date Time Provider Department 10/03/24 1:30 PM PEPE KLINE During your visit today, we recorded the following information about you: Pepe Kline MD 10/24/2024 9:49 PM Signed Pepe Kline MD Department of Orthopaedics [facility] [address] [facility] [address] Dept: [phone] Dept October 03, 2024 CHIEF COMPLAINT: New of the Right Hand (Cyst right hand/) HPI Patient here for evaluation cyst right hand. States she noticed she has 3 cyst on the palm of her hand. Patient is right hand dominant. Taking no med's for the pain. She does not work outside the home. ASSESSMENT: M72.0 Dupuytren's disease of palm (primary encounter diagnosis) PLAN: She has mild Kirk changes that are not indicated for any intervention nor surgery. FOLLOW UP INSTRUCTIONS: If anything worsens. Info from [employer] provided. OBJECTIVE: Ms. Yue Ibrahim is a pleasant 64 year old in no apparent distress. Gen:There were no vitals taken for this visit. nl development, obese, no deformities ENT: Normocephalic, normal hearing, moist mucosa CV: Pulses:Radial= 2+ and symmetric, capillary refill < 2 secs, no peripheral edema/varicosities Skin: no rash, bruising or lesions. Good turgor. Psych: cooperative and appropriate, alert and oriented x 3, good mood and affect. Musculoskeletal: Small nodules palm without contracture or pain. 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 Gastroesophageal reflux disease 03/09/2017 Hyperlipidemia Hypertension Hypoactive thyroid 03/09/2017 Insomnia 03/09/2017 Obesity Osteoarthritis 03/09/2017 Palpitations Sleep apnea 03/09/2017 SVT (supraventricular tachycardia) (HCC) recurrent; symptomatic; reportedly terminates with IV adenosine, indicative of AV nilesh dependent type of SVT such as AVNRT or AVRT; no WPW pattern by EKG; 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; no surgical procedure required Past Surgical History: PAST SURGICAL HISTORY Procedure Laterality Date ARTHRP KNE CONDYLEANDPLATU MEDIALANDLAT COMPARTMENTS Right 06/2014 CARDIAC CATH 05/01/2006 [facility]: mild diffuse CAD; normal LV systolic fxn (LVEF 50%) SECTION HX 04/04/1982 CHOLECYSTECTOMY 01/2016 laparoscopic cholecystectomy CORRECTION OF BUNION Bilateral 1997 ECHOCARDIOGRAM 09/2015 normal LV size and systolic fxn; LVEF 60%; mild MVP with trivial MR; trivial TR; bubble contrast negative for right to left interatrial shunt; [place] ECHOCARDIOGRAM 11/17/2005 severe LV systolic dysfxn; LVEF 15%; restrictive diastolic fxn; mild TR ECHOCARDIOGRAM 02/25/2006 normal LV systolic fxn; LVEF 50%; [facility] ECHOCARDIOGRAM 08/2009 normal LV systolic fxn; LVEF 65%; +PFO; [facility] EPS: SVT ABLATION 04/07/2017 EP study showed no APs; normal conduction system; 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 Mckeon EVENT MONITOR 09/2015 30 day monitoring: sinus rhythm 54-125 bpm; rare PACs; bursts of SVT lasting 3-19 beats with rates up to 155 bpm; occas PVCs; reported symptoms did not consistently correlate with heart rate or rhythm disturbance FOOT LEFT OP SURGERY Left 2011 HEMORRHOID SURGERY HX 01/2009 Doppler-guided hemorrhoid ligation HOLTER MONITOR 2009 sinus rhythm; nocturnal bradycardia; rare PACs, PVCs; palpitations inconsistently correlated with PACs; [facility] KNEE SURGERY HX Right 08/16/2005 Repair of patellar tendon rupture, right knee STRESS TEST PHARMACOLOGIC-NUCLEA R 09/2015 [facility]: no ischemia or scar; LVEF 64% TONSILLECTOMY HX 1979 VAGINAL HYSTERECTOMY WRIST SURGERY HX Right right wrist cyst removal Family History: FAMILY HISTORY Problem Relation Age of Onset Arthritis Mother Heart Mother atrial fibrillation Hypertension Father Cancer Father lung cancer, metastatic Arthritis Sister Diabetes Sister Thyroid Sister other (fibromyalgia) Sister Heart Sister 50 heart attack age 50 yrs, had CABG at that time Diabetes Sister Obesity Sister Thyroid Sister other (tobacco use) Sister Heart Brother had maker in his 50s Alla (more content not included)... Normal [facility] Chest without Contraston Chest without Contrast [facility] [address] [place], [place] [id number] Chest without Contrast MR#: [id number] Acct: [id number] Name: YUE IBRAHIM Rep #: [id number] : 1960 F 64 From: Tavo yancey MD PCP: ABDI Day Status: REG CLI Study: Chest without Contrast Date of Exam: 09/21/24 Exam# [id number] Ordering Dr: Esdras Sarabia MD PROCEDURE: Cardiomyopathy. Coronary stents. Possible sarcoidosis. TECHNIQUE: Chest CT without contrast. COMPARISON: None. FINDINGS: Hardware: None. Lymph nodes: Calcified right hilar lymph. Heart and Vasculature: Normal heart size. No pericardial effusion. Atherosclerotic calcifications of the thoracic aorta. Thoracic aorta and pulmonary arteries have normal contours; noncontrast technique limits evaluation. Coronary Artery Calcifications: Present Lungs and Airways: The lungs are normally expanded and clear. Pleura: No pleural effusion. No pneumothorax. Upper Abdomen: Visualized portions of the upper abdominal viscera are unremarkable. Bones: Degenerative changes of the thoracic spine. CT/Chest without Contrast IMPRESSION: Coronary artery calcification. No evidence of sarcoidosis. One or more dose reduction techniques were used (e.g., Automated exposure control, adjustment of the mA and/or kV according to patient size, use of iterative reconstruction technique). Reading Location: [id number] CC: ABDI Castanon; Dr. Esdras Sarabia MD Gas Cutter: Signed Normal [facility] 36on 09-05-2024 36 Spoke to Karin, send new rx to Ricardo in [place]. Thanks! [facility] 36 Message released to patient as written. Diarrhea can be associated with this medication. I have that she is currently taking 3 mg of the Trulicity. Can have her take a reduced dose and see if this helps to manage side effects. Patient's further questions if applicable: Yes she is taking 3mg of the Trulicity. She would like to try taking a reduced dosage. States she only has one shot left. Requesting a callback to advise what the reduced dosage should be Were all questions from office addressed or relayed to the patient from encounter: Yes [place] [address]on 09-02-2024 36 Lm for pt to return call- Give the message below from Rafaela Answer the questions? Route messge back to office [place] [address] Diarrhea can be associated with this medication. I have that she is currently taking 3 mg of the Trulicity. Can have her take a reduced dose and see if this helps to manage side effects. [place] [address] Name of caller: karin Contact phone number: [phone] Relationship to Patient: patient Provider: /Rafaela Castanon Practice: [place] Chief Complaint/Reason for Call: pt called in to have office call,states when she is on trulicity, has diarrhea, but the couple days she was off of it, the diarrhea cleared up, wants to know what pcp can suggest for her to do, please call and advise Best time of day caller can be reached: AM Patient advised that office/PCP has 24-48 business hours to return their call: Yes [place] [address] 08-19-2024 36 Pt notified and understood [place] [address] The Trulicity can contribute to these symptoms. I would recommend frequent, light meals to help with digestion. And she would need to have someone come out and test her water if there are concerns. Okay to wait to do Trulicity injection until she is able to get it picked up. [facility] 36 S: Patient spoke with [facility] nurse regarding medication question B: Onset of symptoms/concern 3 weeks A: Patient is on Trulicity, has sour stomachs every day, burps. Patient takes omeprazole (Prilosec) [address] capsule[address] Should the omeprazole be increased. Patient is also concerned with their water, smelling of sulfa. Patient concerned it is a community problem. Patient typically takes the Trulicity injections on Fridays, patient doesn't have the money to pick it up until 08/22/24. Copay is $11.20. Patient requests to know if that is okay to wait. Patient states there are most days she has no appetite, concerned as she is a diabetic, and patient has to force herself to eats a smaller or shot core drill operator portion. Patient weighted 259, down to 247 pounds. Patient's internet and e business project manager is happy with patient's weight loss. R: Message sent to provider for review. Reason for Disposition Caller has URGENT medicine question about med that PCP or specialist prescribed and triager unable to answer question Protocols used: Medication Question [facility] Reporton Cardiology Visit Report [facility] [address] [place] [address] OFFICE VISIT Date of Service: 08/16/24 MR#: [id number] Acct: [id number] Name: YUE IBRAHIM Rep #: [id number] : 1960 Provider: Dr. Esdras Sarabia MD Age/Sex: 64/F Location: [facility] [place] Status: Signed HPI HPI History of Present Illness Details: This lady with history of coronary artery disease, cardiomyopathy, hypertension and diabetes mellitus is here for follow-up visit. She has had cardiac MRI done. It showed LVEF of 40%. Findings were considered to be compatible with nonischemic cardiomyopathy with possibility of sarcoidosis. She is scheduled to have a CT scan of her chest next month. Denies any chest pains either at rest or with exertion. She does complain of shortness of breath with moderate to strenuous exertion. According to her, shortness of breath had resolved after her last coronary intervention but then recurred. Denies any rest symptoms. No orthopnea. No PND. No ankle edema. No palpitations. Intake Vital Signs 01/04/24 13:32 08/16/24 08:34 Height 5 ft 4 in 5 ft 4 in Weight: 247 lb BMI 42.4 BP 113/80 Blood Pressure Location Lt brachial Position Sitting Respiration 16 Pulse 93 Pulse Source NIBP Intake Visit Reasons: 7 M FU Social Worker Required: No Accompanied by: Is patient in pain?: No Allergies clindamycin Allergy (Verified 08/16/24 13:25) Hives erythromycin base Allergy (Verified 08/16/24 13:25) Hives nitrofurantoin macrocrystalline (From Macrodantin) Allergy (Verified 08/16/24 13:25) Hives Sulfa (Sulfonamide Antibiotics) Allergy (Verified 08/16/24 13:25) Hives sulfamethoxazole (From Septra) Allergy (Verified 08/16/24 13:25) Hives trimethoprim (From Septra) Allergy (Verified 08/16/24 13:25) Hives dapagliflozin (From [facility]) Adverse Reaction (Intermediate, Verified 08/16/24 13:25) Yeast Infection lisinopril Adverse Reaction (Intermediate, Verified 08/16/24 13:25) Dry Hacking Cough Medications ???Medication ???Instructions ???Recorded ???Confirmed ???Type aspirin 81 mg chewable tablet 81 mg PO DAILY@0800 09/11/15 07/01/24 History coenzyme Q10 100 mg capsule 100 mg PO DAILY 08/02/18 07/01/24 History metformin 1,000 mg tablet 1,000 mg PO BID #0 tabs 10/16/18 07/01/24 Rx metoprolol tartrate 100 mg tablet 100 mg PO BID 07/29/19 07/01/24 History atorvastatin 40 mg tablet 40 mg PO QHS #90 tabs 11/02/19 07/01/24 Rx ascorbic acid (vitamin C) 500 mg 500 mg PO DAILY 05/16/20 07/01/24 History tablet zinc 50 mg tablet 50 mg PO DAILY 05/16/20 07/01/24 History clopidogrel 75 mg tablet 75 mg PO DAILY #90 tabs 12/28/20 07/01/24 Rx levothyroxine 50 mcg tablet 50 mcg PO DAILY 10/21/21 08/16/24 History nitroglycerin 0.4 mg sublingual 0.4 mg sublingual Q5M PRN Chest 03/27/23 07/01/24 Rx tablet Pain #25 tabs omeprazole 20 mg capsule,delayed 20 mg PO DAILY 04/23/23 07/01/24 History release gabapentin 100 mg capsule 200 mg PO BID 01/04/24 08/16/24 History calcium carbonate 500 mg PO DAILY 02/18/24 07/01/24 History furosemide 40 mg tablet (Lasix) 40 mg PO DAILY PRN swelling #30 04/15/24 08/16/24 Rx tabs sacubitril 49 mg-valsartan 51 mg 1 tab PO BID #60 tabs 04/15/24 07/01/24 Rx tablet (Entresto) dulaglutide 3 mg/0.5 mL mg subcut 08/16/24 08/16/24 History subcutaneous pen injector (Trulicity) Ejection fraction %: 35 Have you fallen in the past year?: No [facility] Medical History Abnormal stress test Atherosclerotic heart disease of [place] coronary artery without angina pectoris Bronchitis Cardiomyopathy Chest pain Chest pain, rule out acute myocardial infarction Coronary artery disease Diabetes mellitus SALMERON (dyspnea on exertion) Dyslipidemia Endometrial hyperplasia without atypia, simple Essential hypertension GERD (gastroesophageal reflux disease) History of PSVT (paroxysmal supraventricular tachycardia) HTN (hypertension) Hypothyroidism Mixed hyperlipidemia NSTEMI (non-ST elevated myocardial infarction) Obesity Obesity, morbid, BMI 40.0-49.9 Obstructive sleep apnea HUSSEIN (obstructive sleep apnea) Screening for colorectal cancer Supraventricular tachycardia Varicose veins of right lower extremity Surgical History H/O prior ablation treatment (04/07/17) History of History of cardiac radiofrequency ablation ( 04/07/17) History of hysterectomy History of left heart catheterization (05/04/23) History of total right knee replacement (TKR) ( 06/2014) Stented coronary artery (05/04/23) Family History Grandmother CVA (cerebral vascular accident) Mother CAD (coronary a (more content not included)... [facility] 36on 07-26-2024 36 Patient notified. [facility] 36on 07-25-2024 36 Reviewed current medication list. It is safe to take Melatonin. [employer] [facility] 36 Name of caller: Karin Contact phone number: [phone] Relationship to Patient: Patient Provider: or Rafaela Castanon Practice: [place] Chief Complaint/Reason for Call: Patient called in regarding medication. Patient stated she got over the counter Melatonin 12 MG. Patient would like to know if that is okay for her to take or if it will interact with her other medications. Patient will need a call back to discuss. Best time of day caller can be reached: Any Patient advised that office/PCP has 24-48 business hours to return their call: Yes [facility] 36on 06-29-2024 36 PATIENT NOTIFIED. AWARE TO BRING NUMBERS IN 2 WEEKS. Normal [facility] 36 Rx sent for new dose. Please drop off home blood sugars for review in 2 weeks. Normal [facility] 36 Notified, needs new rx for increased trulicity dose sent to pharmacy on file. [facility] 36 ----- Message from IRISH Day CNP sent at 06/29/2024 7:27 AM EST ----- Hemoglobin A1c has improved but remains high at 8%. Recommend increasing Trulicty to 3 mg once a week for better blood sugar control. Strive for a strict diet low in carbohydrates and sugar. Blood sugar was 129. Kidney function is normal. [facility] Office Visiton 06-27-2024 Follow-up visit [id number] Yue Ibrahim 1960 F Date Provider Department Center 06/27/2024 [id number] Family History Problem Relation Age of Onset Heart disease Brother Cancer Father Cancer Mother Diabetes Mother Heart disease Sister High Blood Pressure Father Asthma Brother Family Status - Relation Status Age at Brother Alive Father Mother Alive Sister Alive Level of Service:62201 [place] OFFICE/OUTPATIENT ESTABLISHED MOD MDM 30 MIN Reason for Visit and Comments: Medication Check [2543426025] Diabetes [34] Health Maintenance [872] - Hep C screen- declines Mammo- agrees CRCS- Dr. Luis Antonio garcia(1-2 weeks ago) DM eye- is going to make appointment Dm dental- not done Blood Work [[id number]] [facility] Progress Noteon 06-27-2024 Progress Note Patient verified by last name and . [facility] Progress Note Patient Yue Ibrahim 64 y.o. female, presents today with Chief Complaint Patient presents with Medication Check Diabetes Health Maintenance Hep C screen- declines Mammo- agrees CRCS- Dr. Luis Antonio garcia(1-2 weeks ago) DM eye- is going to make appointment Dm dental- not done Blood Work . HPI- Yue Ibrahim presents today for follow up on her diabetes and other chronic health conditions. Previous hemoglobin A1c was 8.7% on 01/08/24. Had the dose of her Trulicity increased to 1.5 mg at that time. Diabetes Mellitus Type II: Known diabetic complications: peripheral neuropathy and cardiovascular disease- actively follows up with cardiology and is scheduled to see them again in July. Taking Gabapentin. Cardiovascular risk factors: diabetes mellitus, dyslipidemia, hypertension, obesity (BMI >= 30 kg/m2), and sedentary lifestyle Current diabetic medications include: Metformin and Trulicity. Eye exam current (within one year): No - Radha Silva December 2022- reminded to schedule this year's appointment Dental exam current (within one year): No- 06/23/23. Reminded to schedule. Weight trend: has lost 4 pounds over the past 6 months Prior visit with anesthesiology technologist: No Current diet: in general, an unhealthy diet Current exercise: none Current monitoring regimen: home blood tests - yes Home blood sugar records: fasting range: averages 80-189 Any episodes of hypoglycemia? No - denies signs or symptoms Is She on CLAUDIA inhibitor or angiotensin II receptor yeyo? Yes- was taken off of Losartan and started on Entresto - blood pressure is stable today at 130/82 Currently on statin therapy? Yes - Atorvastatin. Levels last checked on 01/08/24. Component Ref Range & Units 5 mo ago (01/08/24) 5 mo ago (01/04/24) 1 yr ago (11/17/22) 2 yr ago (11/15/21) 4 yr ago (04/06/20) CHOLESTEROL, TOTAL <200 mg/dL 120 116 HDL CHOLESTEROL > OR = 50 mg/dL 37 Low 33 Abnormal R 38 Low 37 Low R 41 R TRIGLYCERIDES <150 mg/dL 249 High 188 Abnormal R 193 High 268 Abnormal 204 Abnormal LDL-CHOLESTEROL mg/dL (calc) 54 52 CM CHOL/HDLC RATIO <5.0 (calc) 3.2 3.1 NON HDL CHOLESTEROL <130 mg/dL (calc) 83 78 CM Last urine microalbumin was 2.8 mg/L on 01/08/24. Last foot exam was 01/08/24. Hypothyroidism: Takes Levothyroxine as prescribed. TSH was within normal range at 3.2 mIU/L on 01/08/24. GERD: Takes Omeprazole as prescribed. Feels symptoms are stable. Denies abdominal pain or dark black tarry stools. Sleep Apnea: Has not been wearing her CPAP for her sleep for several years. Plans to follow up with her computer systems analyst to look for other options since she does not tolerate the CPAP. DJD/Arthritis: Takes Gabapentin and feels symptoms are stable. Will take Aleve intermittently but uses this sparingly due to her other heart medications. Insomnia: Currently averaging 6-7 (interrupted) hours of sleep per night and feels symptoms are stable. Has a firm area in the palm of her right hand she she first noticed a few weeks ago that she would like looked at. States it is non-tender and does not impair finger/hand movement. Would like to see a hand specialist for this. Health Maintenance: Colon cancer screening: had a colonoscopy with Dr. Montelongo a few weeks ago- will request records. Tdap current: 10/06/23. Declines to be vaccinated for Hep B. Is fully vaccinated for shingles. Declines screening for HIV and Hep C. Mammogram: 04/23/22- had an order placed for repeat imaging in February 2023 but never got this scheduled- needs a new order placed today. Current on pneumonia vaccinations: PPSV23 on 08/25/18 and PCV13 on 11/15/21. Vaccinated for COVID-19 x7 with most recent dose on 04/16/24. Has had a hysterectomy and no longer gets pap smears. Echocardiogram: 04/05/24. RSV immunization: 06/19/23. Had a flu vaccination 04/16/24. Past Medical History: Diagnosis Date Abnormal weight gain Acute URI 12/19/2021 Cardiomyopathy (HCC) Cardiomyopathy (HCC) CHF (congestive heart failure) (HCC) CHF (congestive heart failure) (HCC) Diabetes (HCC) DJD (degenerative joint disease) Edema GERD (gastroesophageal reflux disease) Hypothyroidism Insomnia Knee pain [place] (myocardial infarction) (HCC) Nasal congestion 10/16/2022 Obesity Trapezius strain, unspecified laterality, initial encounter 07/18/2022 Type II or unspecified type diabetes mellitus without mention of complication, not stated as uncontrolled (HCC) Unspecified sleep apnea Past Surgical History: Procedure Laterality Date BUNIONECTOMY CARDIAC CATHETERIZATION 08/16/2019 CARDIAC CATHETERIZATION 04/2023 Stent Placement CARPAL TUNNEL RELEASE COLONOSCOPY 06/13/2024 HEMORRHOID SURGERY DOPPLER-GUIDED LIGATION JOINT REPLACEMENT KNEE RIGHT TONSILLECTOMY AND ADENOIDECTOMY (HISTORICAL) TOTAL VAGINAL HYSTERECTOMY Family History Problem Relation Name Age of Onset Heart disease Brother Cancer Father Cancer Mother Diabetes Moth (more content not included)... [facility] 36on 06-23-2024 36 Left a message to return call. We did have more questions but if she can be here early that's fine too. [facility] 36 Name of caller: Karin Contact phone number: [phone] Relationship to Patient: patient Provider: Debbie Practice: [place] Chief Complaint/Reason for Call: Patient was returning call to the office. I was unable to find anything in the chart to release besides the appt note stating to be there at 11. She said she will be there. Please advise Best time of day caller can be reached: any Patient advised that office/PCP has 24-48 business hours to return their call: No [address] 06-17-2024 36 Pt no longer needs the paperwork a friend gave her a wheelchair [facility] 36 I just double checked my paperwork and do not have anything. [place] [address] Before I call this pt - have you received any forms for the wheelchair? [address] 06-15-2024 36 I have not received any forms yet, FYI. [address] 06-13-2024 36 Name of caller: Karin Contact phone number: [phone] Relationship to Patient: patient Provider: Dr. Latif Practice: [facility] [facility] Chief Complaint/Reason for Call: pt called and will have Kian Fonseca fax over the paperwork to apply for a wheel chair, 80/20 per her insurance. Pt has enlarged heart and can not walk very far without being out of breath. FYI Best time of day caller can be reached: any Patient advised that office/PCP has 24-48 business hours to return their call: N/A [address] 06-03-2024 36 Rx sent. OARRS report reviewed with no discrepancies. CSA signed in August 2023. [facility] 36 CSA 08/24/23 [place] [address] Ordering provider: Dr. Latif Date of last office visit: 01.08.24 Date of next office visit: 06.27.24 Updated/Validated preferred pharmacy: Yes Patient instructed to contact the pharmacy prior to picking up the medication: No (1) Medication name: omeprazole (PriLOSEC) [address] capsule Medication dosage: 20 mg (Miligrams Monthly quantity needed: 90 How many day supply requestin days Medication route: oral (PO) Medication administration time(s): daily If taking medication PRN, reason for taking medication: N/A If this is a controlled substance do you receive this or any other controlled medication from any other doctor or facility: N/A Date of last refill (see medication tab): 12.10.23 (2) Medication name: gabapentin (Neurontin) 100 MG capsule Medication dosage: 100 mg (Miligrams Monthly quantity needed: 120 How many day supply requestin days Medication route: oral (PO) Medication administration time(s): 2 times a day (BID) If taking medication PRN, reason for taking medication: N/A If this is a controlled substance do you receive this or any other controlled medication from any other doctor or facility: N/A Date of last refill (see medication tab): 04.25.[address] 05-25-2024 36 Spoke to patient, no questions. [place] [address] No, I think at this time it is considered a 1 and done vaccine [place] [address] Name of caller: Karin Collinsright Contact phone number: [phone] Relationship to Patient: patient Provider: Dr Latif Practice: [place] [facility] Chief Complaint/Reason for Call: Patient stated that they had an RSV vaccine last year and would like to know from Dr Latif if it is recommended for them to get one this year. Please advise. Thank you. Best time of day caller can be reached: Any Patient advised that office/PCP has 24-48 business hours to return their call: No [address] 05-13-2024 Reviewed chart. Refill appropriate. RX sent. [place] [address] Please route to correct office. [place] [address] Ordering provider: Debbie Date of last office visit: 01/08/2024 Date of next office visit: 05/25/2024 Updated/Validated preferred pharmacy: Yes Patient instructed to contact the pharmacy prior to picking up the medication: Yes (1) Medication name: Levothyroxine Medication dosage: 50 mcg (Micrograms) Monthly quantity needed: 90 How many day supply requestin days Medication route: oral (PO) Medication administration time(s): daily If taking medication PRN, reason for taking medication: N/A If this is a controlled substance do you receive this or any other controlled medication from any other doctor or facility: No Date of last refill (see medication tab): 11/24/[address] 04-25-2024 36 Rx sent. Follow up as scheduled. [place] [address] Medication name: OneTouch Verio test strip Medication dosage: NA NA Monthly quantity needed: 100 How many day supply requestin year Medication route: use with Glocometer Medication administration time(s): 3 times a day (TID) If taking medication PRN, reason for taking medication: N/A If this is a controlled substance do you receive this or any other controlled medication from any other doctor or facility: No Ordering provider: Dr. Latif Date of last office visit: 01.08.2024 Date of next office visit: 05.25.2024 Date of last refill: (see medication tab): 11.16.2023 Updated/Validated preferred pharmacy: Yes Patient instructed to contact the pharmacy prior to picking up the medication: Yes [place] [address] Rx sent. OARRS report reviewed with no discrepancies. CSA signed in August 2023. [place] [address] S: Patient called the clinical access center with complaint of rapid heart rate, sob at times, diarrhea B: Ongoing diarrhea started 3 weeks ago. A: Patient c/o HR 85 normally 64-70. Shortness of breath for a long time states she has enlarged heart, was put on new medication, Entresto. Was told the new medication did not cause the diarrhea. States she just hung up speaking with cardiology. Has gone to bathroom twice this morning. All water, no blood. Asking if trulicity can cause diarrhea. Denies abdominal pain or fever states she is not hungry, Drinking a lot of water. R: Appointment scheduled 04/26/24. Insurance verified. Instructed to bring medications to [facility]. Covid screen negative. Home Care advice given. Patient instructed to call back with worsening symptoms, concerns or questions. Patient verbalized understanding. Message to the office for review by the provider and needs recommendation from Provider for treatment going forward. Reason for Disposition MODERATE diarrhea (e.g., 4-6 times / day more than normal) and present > 48 hours (2 days) Protocols used: [id number] [facility] 36 CSA 08/24/23 [facility] 36 Ordering provider: Dr Latif Date of last office visit: 01.08.24 Date of next office visit: 05.25.24 Updated/Validated preferred pharmacy: Yes Patient instructed to contact the pharmacy prior to picking up the medication: Yes (1) Medication name: gabapentin (Neurontin) 100 MG capsule Medication dosage: 100 MG capsule Monthly quantity needed: 60 How many day supply requestin days Medication route: oral (PO) Medication administration time(s): 2 times a day (BID) If taking medication PRN, reason for taking medication: N/A If this is a controlled substance do you receive this or any other controlled medication from any other doctor or facility: No Date of last refill (see medication tab): 03.01.24 (2) Medication name: atorvastatin (Lipitor) 40 MG tablet Medication dosage: 40 MG tablet Monthly quantity needed: 30 How many day supply requestin days Medication route: oral (PO) Medication administration time(s): daily If taking medication PRN, reason for taking medication: N/A If this is a controlled substance do you receive this or any other controlled medication from any other doctor or facility: N/A Date of last refill (see medication tab): 11.16.23 (3) Medication name: metoprolol tartrate (Lopressor) 100 MG tablet Medication dosage: 100 MG tablet Monthly quantity needed: 60 How many day supply requestin days Medication route: oral (PO) Medication administration time(s): 2 times a day (BID) If taking medication PRN, reason for taking medication: N/A If this is a controlled substance do you receive this or any other controlled medication from any other doctor or facility: N/A Date of last refill (see medication tab): 11.16.23 [facility] 36on 04-18-2024 [address] [facility] 36 Rx sent. Follow up as scheduled. [place] [address] Pulled in entresto rx and flagged for removal for losartan [place] [address] Name of caller: Karin Ibrahim Contact phone number: [phone] Relationship to Patient: Patient Provider: Romulo Latif Practice: [facility] Chief Complaint/Reason for Call: Patient called to advise the following: Patient's internet and e business project manager advised her she has an enlarged heart. As a result of enlarged heart, internet and e business project manager has put patient on Entresto. Carousel Operator took patient off Losartan; advised that the Entresto has Losartan in it (Losartan previously prescribed by Dr Latif). Please update patient's medication list. Best time of day caller can be reached: any Patient advised that office/PCP has 24-48 business hours to return their call: N/A [place] [phone] Note: Patient will need Trulicity before 04/22/24 for next injection 04/23/24. Ordering provider: Romulo Latif Date of last office visit: 01/08/24 Date of next office visit: 05/25/24 Updated/Validated preferred pharmacy: Yes [facility] Patient instructed to contact the pharmacy prior to picking up the medication: Yes (1) Medication name: dulaglutide (Trulicity) Medication dosage: 1.5 MG/0.5ML solution pen-injector Monthly quantity needed: 4 pens How many day supply requestin days + refills Medication route: subcutaneous injection (SQ/SC) Medication administration time(s): weekly If taking medication PRN, reason for taking medication: N/A If this is a controlled substance do you receive this or any other controlled medication from any other doctor or facility: No Date of last refill (see medication tab): 01/11/24 (2) Medication name: clopidogrel (Plavix) Medication dosage: 75 mg (Miligrams Monthly quantity needed: 30 How many day supply requestin days Medication route: oral (PO) Medication administration time(s): daily If taking medication PRN, reason for taking medication: N/A If this is a controlled substance do you receive this or any other controlled medication from any other doctor or facility: No Date of last refill (see medication tab): 10/27/23 [facility] MRI CARD MORPH FUNC WO/W IVC ONon 04-05-2024 MRI CARD MORPH FUNC WO/W IVCON * * *Final Report* * * DATE OF EXAM: Apr 05 2024 9:49AM AWM 0703 - MRI CARD MORPH FUNC WO/W IVCON / PROCEDURE REASON: i42.9 * * * * Physician Interpretation * * * * Cardiac MRI Report: [facility] Date of service: 04/05/2024 8:40:21 AM Linked orders:[id number] CARD MORPH FUNC WO/W IVCON;[id number] CARDIAC VELOCITY FLOW MAP. Ordering physician: SELINA ROBERTS Technologist: SELINA FISHER Interpreting physician: Danny Calixto MD PATIENT: Name: MS. YUE IBRAHIM Age: 64 years Gender: F MRI Scanner: Siemens Altea 1.5T 64 year old female with suspected cardiomyopathy. Cardiomyopathy This study is performed to quantify left/right ventricular size and function, valvular function, and to perform tissue characterization for the assessment of myocardial fibrosis/viability. MRI Techniques: * Turbo spin echo and gradient echo imaging for anatomic definition. * Dynamic cine imaging (SSFP and GRE) for cardiac chamber and wall-motion analysis, and valvular analysis. * Flow quantification sequences for hemodynamics in 2 locations: aortic root and mid-ascending aorta. * Delayed gadolinium enhancement analysis after injection of gadolinium-chelate. * T2STIR/ T2 Fat Saturated Imaging. * T1 mapping. Gadolinium Agent: 12 cc of Gadavist was administered. Baseline vital signs: 90 bpm Height: 160.00 cm BSA: 2.30 m? Weight: 119.30 kg BMI: 46.6 kg/m? FINDINGS: Extracardiac findings: The chest wall appears normal. No significant adenopathy is identified. Limited imaging of the lungs reveals no gross abnormalities. Aorta: The thoracic aorta is normal in course, caliber and contour. Sinus: 3.4 cm Sinotubular junction: 3.1 cm Mid ascendin.2 cm Descending mid thoracic: 2.4 cm Pulmonary Arteries: Pulmonary Arteries: Dilated Measurements: - Main pulmonary artery diameter: 2.4 cm - Right pulmonary artery diameter: 2.0 cm - Left pulmonary artery diameter: 2.0 cm Left Atrium: The left atrium is normal in size. LA volume: 67 ml (normal range: 28-100 ml) LA volume index: 29 ml/m? (normal range: 17-54 ml/m?) LA area (4ch): 22 cm? LA area (2ch): 21 cm? Right Atrium: The right atrium is normal in size. RA volume: 40 ml (normal range: 24-81 ml) RA volume index: 17 ml/m? (normal range: 18-58 ml/m?) RA area (4ch): 16 cm? Left Ventricle: The left ventricle is normal in size. Left ventricular systolic function is moderately decreased. value (normal range) indexed (normal range) EDV: 167 ml (70-155 ml) EDVi: 72 ml/m? (45-93 ml/m?) ESV: 101 ml (15-64 ml) ESVi: 44 ml/m? (10-38 ml/m?) SV: 66 ml (47-99 ml) SVi: 29 ml/m? (30-59 ml/m?) KING: 5.4 cm (3.9-5.9 cm) Elkin: 2.5 cm/m? (2.5-3.8 cm/m?) ESD: 4.7 cm (1.6-4.0 cm) ESDi: 2.2 cm/m? (1.0-2.6 cm/m?) EF: 40 % (52-79 %) CO: 5.9 l/min (3.0-6.9 l/min) CI: 2.6 l/min/m? (1.9-4.0 ml/min/m?) mass: 109 g (43-103 g) LVMi: 47 g/m? (30-59 g/m?) LV segment wall thickness: basal anteroseptum: 1.1 cm basal inferolateral: 0.8 cm Wall Motion: There is diffuse mild hypokinesis. Delayed Enhancement: There is 50-74% delayed gadolinium enhancement of the mid anterolateral segment. There is 25-49% delayed gadolinium enhancement of the mid inferolateral segment. There is <25% delayed gadolinium enhancement of the mid inferoseptal segment and basal inferolateral segment.All remaining scored segments are normal. Constellation of findings could be suggestive of cardiac sarcoidosis or myocarditis. Right Ventricle: The right ventricle is normal in size. Right ventricular systolic function is mildly decreased. value (normal range) indexed (normal range) EDV: 113 ml (68-176 ml) EDVi: 49 ml/m? (48-104 ml/m?) ESV: 65 ml (20-80 ml) ESVi: 28 ml/m? (13-48 ml/m?) SV: 49 ml (39-109 ml) SVi: 21 ml/m? (29-66 ml/m?) EF: 43 % (46-74 %) CO: 4.4 l/min (2.4-6.4 l/min) CI: 1.9 l/min/m? (1.6-4.0 l/min/m?) T1 / T2 / ECV T2 * : +------+ + ------+ + -----+ T1 pre (ms) +/- T1 post (ms) +/- +------+ + ------+ + -----+ Base 965.08 134.44 421.73 61.52 +------+ + ------+ + -----+ Mid 980.70 81.36 434.61 35.03 +------+ + ------+ + -----+ [place] 968.86 80.77 433.86 30.17 +------+ + ------+ + -----+ Global 972.08 100.76 430.30 44.27 +------+ + ------+ + -----+ Normal values based on healthy individuals: T1: 950 +/- 21 ms; ECV: 26 +/- 4% T2 mapping: Global: 53.21 +/- 6.56 ms Aortic Valve: AV Flow Quantification: ST Junction Forward Volume: 59 ml Reverse Volume: 0 ml Net Forward Volume: 59 ml Regurgitant Fraction: 1 % Pulmonic Valve: PV Flow Quantification: Inaccurate due to technical limitations. Mitral Valve: There is mild mitral regurgitation. Mitral Flow Quantification: Integrating L (more content not included)... Normal [facility] MRI CARDIAC VELOCITY FLOW MA Afshin 04-05-2024 MRI CARDIAC VELOCITY FLOW MAP * * *Final Report* * * DATE OF EXAM: Apr 05 2024 9:49AM AW 0704 - MRI CARDIAC VELOCITY FLOW MAP / PROCEDURE REASON: i42.9 * * * * Physician Interpretation * * * * Cardiac MRI Report: [facility] Date of service: 04/05/2024 8:40:21 AM Linked orders:[id number] CARD MORPH FUNC WO/W IVCON;[id number] CARDIAC VELOCITY FLOW MAP. Ordering physician: SELINA ROBERTS Technologist: SELINA FISHER Interpreting physician: Danny Calixto MD PATIENT: Name: MS. YUE IBRAHIM Age: 64 years Gender: F MRI Scanner: Siemens Afrimarketea 1.5T 64 year old female with suspected cardiomyopathy. Cardiomyopathy This study is performed to quantify left/right ventricular size and function, valvular function, and to perform tissue characterization for the assessment of myocardial fibrosis/viability. MRI Techniques: * Turbo spin echo and gradient echo imaging for anatomic definition. * Dynamic cine imaging (SSFP and GRE) for cardiac chamber and wall-motion analysis, and valvular analysis. * Flow quantification sequences for hemodynamics in 2 locations: aortic root and mid-ascending aorta. * Delayed gadolinium enhancement analysis after injection of gadolinium-chelate. * T2STIR/ T2 Fat Saturated Imaging. * T1 mapping. Gadolinium Agent: 12 cc of Gadavist was administered. Baseline vital signs: 90 bpm Height: 160.00 cm BSA: 2.30 m? Weight: 119.30 kg BMI: 46.6 kg/m? FINDINGS: Extracardiac findings: The chest wall appears normal. No significant adenopathy is identified. Limited imaging of the lungs reveals no gross abnormalities. Aorta: The thoracic aorta is normal in course, caliber and contour. Sinus: 3.4 cm Sinotubular junction: 3.1 cm Mid ascendin.2 cm Descending mid thoracic: 2.4 cm Pulmonary Arteries: Pulmonary Arteries: Dilated Measurements: - Main pulmonary artery diameter: 2.4 cm - Right pulmonary artery diameter: 2.0 cm - Left pulmonary artery diameter: 2.0 cm Left Atrium: The left atrium is normal in size. LA volume: 67 ml (normal range: 28-100 ml) LA volume index: 29 ml/m? (normal range: 17-54 ml/m?) LA area (4ch): 22 cm? LA area (2ch): 21 cm? Right Atrium: The right atrium is normal in size. RA volume: 40 ml (normal range: 24-81 ml) RA volume index: 17 ml/m? (normal range: 18-58 ml/m?) RA area (4ch): 16 cm? Left Ventricle: The left ventricle is normal in size. Left ventricular systolic function is moderately decreased. value (normal range) indexed (normal range) EDV: 167 ml (70-155 ml) EDVi: 72 ml/m? (45-93 ml/m?) ESV: 101 ml (15-64 ml) ESVi: 44 ml/m? (10-38 ml/m?) SV: 66 ml (47-99 ml) SVi: 29 ml/m? (30-59 ml/m?) KING: 5.4 cm (3.9-5.9 cm) Elkin: 2.5 cm/m? (2.5-3.8 cm/m?) ESD: 4.7 cm (1.6-4.0 cm) ESDi: 2.2 cm/m? (1.0-2.6 cm/m?) EF: 40 % (52-79 %) CO: 5.9 l/min (3.0-6.9 l/min) CI: 2.6 l/min/m? (1.9-4.0 ml/min/m?) mass: 109 g (43-103 g) LVMi: 47 g/m? (30-59 g/m?) LV segment wall thickness: basal anteroseptum: 1.1 cm basal inferolateral: 0.8 cm Wall Motion: There is diffuse mild hypokinesis. Delayed Enhancement: There is 50-74% delayed gadolinium enhancement of the mid anterolateral segment. There is 25-49% delayed gadolinium enhancement of the mid inferolateral segment. There is <25% delayed gadolinium enhancement of the mid inferoseptal segment and basal inferolateral segment.All remaining scored segments are normal. Constellation of findings could be suggestive of cardiac sarcoidosis or myocarditis. Right Ventricle: The right ventricle is normal in size. Right ventricular systolic function is mildly decreased. value (normal range) indexed (normal range) EDV: 113 ml (68-176 ml) EDVi: 49 ml/m? (48-104 ml/m?) ESV: 65 ml (20-80 ml) ESVi: 28 ml/m? (13-48 ml/m?) SV: 49 ml (39-109 ml) SVi: 21 ml/m? (29-66 ml/m?) EF: 43 % (46-74 %) CO: 4.4 l/min (2.4-6.4 l/min) CI: 1.9 l/min/m? (1.6-4.0 l/min/m?) T1 / T2 / ECV T2 * : +------+ + ------+ + -----+ T1 pre (ms) +/- T1 post (ms) +/- +------+ + ------+ + -----+ Base 965.08 134.44 421.73 61.52 +------+ + ------+ + -----+ Mid 980.70 81.36 434.61 35.03 +------+ + ------+ + -----+ [place] 968.86 80.77 433.86 30.17 +------+ + ------+ + -----+ Global 972.08 100.76 430.30 44.27 +------+ + ------+ + -----+ Normal values based on healthy individuals: T1: 950 +/- 21 ms; ECV: 26 +/- 4% T2 mapping: Global: 53.21 +/- 6.56 ms Aortic Valve: AV Flow Quantification: ST Junction Forward Volume: 59 ml Reverse Volume: 0 ml Net Forward Volume: 59 ml Regurgitant Fraction: 1 % Pulmonic Valve: PV Flow Quantification: Inaccurate due to technical limitations. Mitral Valve: There is mild mitral regurgitation. Mitral Flow Quantification: Integrating LV (more content not included)... [facility] YUE IBRAHIM ([id number]) 1960 F Date Time Provider Department 03/23/24 ALDA LOPEZ During your visit today, we recorded the following information about you: Alda Lopez, RT(R) 2024 1:35 PM Signed Please provide protocol for this patients CMR scheduled for 04/05/2024, thank you. Danny Calixto MD 2024 10:05 PM Signed Cardiomyopathy protocol Hello, Get the dark, and bright bloods, STIR the 4 C, 2 C, one short axis, inject contrast, get first pass, and get delayed images at 8 min (4C, 2C, 3C, SA). T1 ( 3 levels base, mid apex), T2 mapping, T2* required. Qp, Qs if ordered. If you do them, pls make sure there is no aliasing in the Qp or Qs. I would get QS ( ascending aorta at the level of the main PA. Make sure that you are perpendicular to the ascending aorta using the 3C, LVOT long) at venc 200, 250, 300 or even higher until the aliasing disappears completely. Thanks, Dr Calixto Allergies As of Date: 2024 Noted Allergy Reaction CLARITHROMYCIN 01/25/2015 4 - Hives CLINDAMYCIN 07/23/2010 4 - Hives ERYTHROMYCIN 07/23/2010 4 - Hives MACRODANTIN (NITROFURANTOIN MACRO*07/23/2010 4 - Hives NITROFURANTOIN 11/26/2005 2 - Rash SEPTRA (SULFAMETHOXAZOLE-TR IMETHO*11/26/2005 4 - Hives 2 - Rash SULFA (SULFONAMIDE ANTIBIOTICS) 07/23/2010 4 - Hives Date Reviewed: 03/09/2017 Reviewed by: Marleny Mckeon - Fully Assessed Prescriptions as of 2024 - metFORMIN ER (GLUCOPHAGE XR) 750 mg 24 hr tablet Take 750 mg by mouth daily with breakfast. - aspirin, enteric coated (ASPIRIN, ENTERIC COATED) 81 mg EC tablet Take 81 mg by mouth once daily. - zolpidem (AMBIEN) 10 mg tab Take 10 mg by mouth at bedtime as needed. - metoprolol tartrate, short acting, (LOPRESSOR) 50 mg tablet Take 75 mg by mouth twice daily. - ranitidine (ZANTAC) 150 mg tablet Take 150 mg by mouth twice daily. - Levothyroxine 25 mcg cap Take by mouth. Problem List As Of Date 2024 Noted Resolved Tachycardia [R00.0] SVT (supraventricular tachycardia) (HCC) [I47.1* Palpitations [R00.2] Hypertension [I10] Hyperlipidemia [E78.5] Sleep apnea [G47.30] 03/09/2017 Type 2 diabetes mellitus without complication (*03/09/2017 Obesity [E66.9] 03/09/2017 Insomnia [G47.00] 03/09/2017 Hypoactive thyroid [E03.9] 03/09/2017 Osteoarthritis [M19.90] 03/09/2017 Gastroesophageal reflux disease [K21.9] 03/09/2017 Cardiomyopathy (HCC) [I42.9] 03/09/2017 Cardiomyopathy, dilated (HCC) [I42.0] Ventricular septal defect [Q21.0] Encounter Status:Closed by ALDA LOPEZ on 03/23/24 Normal [facility] AMB POC HEMOGLOBIN A1Con HbA1c (Bld) [Mass fraction] 8.0 % Abnormal - 5.7 % [facility] HbA1c (Bld) [Mass fraction]o n 06-17-2023 Interpretation and review of laboratory results Abnormal [facility] No Panel InformationOrdered By: Esdras Sarabia on 05-04-2023 Activated Clotting Time 239 sec 74-137 [facility] Absolute lymphocyte countOrd ered By: Karen Palacios on 04-18-2023 Lymphocytes Auto (Unsp spec) [#/Vol] 3.25 10*3/uL 0.83-4.51 [facility] Basophil percentageOrdered B y: Karen Palacios on 04-18-2023 Basophils/100 WBC (Bld) 0.5 % 0-1 [facility] Chloride [Moles/Vol] 102 mmol/L 98-107 [facility] Eosinophils/100 WBC (Bld) 1.0 % 0-5 [facility] Glucose [Mass/Vol] 171 mg/dL 74-106 [facility] Comment on above: Fasting Glucose resu lt greater than or equal to 126 mg/dL suggests DIABETES MELLITUS per A.D.A. criteria. Neutrophils (Bld) [#/Vol] 5.1 10*3/uL 2.0-7.7 [facility] Neutrophils/100 WBC (Bld) 55.5 % 47-70 [facility] Potassium [Moles/Vol] 4.1 mmol/L 3.5-5.1 [facility] Sodium [Moles/Vol] 137 mmol/L 136-145 [facility] WBC (Bld) [#/Vol] 9.1 10*3/uL 4.4-11.0 [facility] Blood erythrocytes count (nu mber/volume)Ordered By: Karen Palacios on 04-18-2023 RBC (Bld) [#/Vol] 4.82 10*6/uL 4.2-5.4 [facility] Blood hemoglobin measurement (mass/volume)Ordered By: Karen Palacios on 04-18-2023 Hemoglobin (Bld) [Mass/Vol] 13.2 g/dL 12.0-15.0 [facility] Blood lymphocytes/100 leukoc ytesOrdered By: Karen Palacios on 04-18-2023 Lymphocytes/100 WBC (Bld) 35.6 % 19-41 [facility] Blood monocytes/100 leukocyt esOrdered By: Karen Palacios on 04-18-2023 Monocytes/100 WBC (Bld) 7.0 % 0-10 [facility] Blood platelet mean volumeOr dered By: Karen Palacios on 04-18-2023 Platelet mean volume (Bld) [Entitic vol] 9.4 fL 6.2-12.0 [facility] Determination of erythrocyte mean corpuscular volume (MCV)Ordered By: Karen Palacios on 04-18-2023 MCV (RBC) [Entitic vol] 86.1 fL 81-99 [facility] Hematocrit Auto (Bld) [Volum e fraction]Ordered By: Karen Palacios on 04-18-2023 Hematocrit (Bld) [Volume fraction] 41.5 % 37-47 [facility] Laboratory - Chemistry and C hemistry - challengeOrdered By: Karen Palacios on 04-18-2023 CO2 [Moles/Vol] 28.0 mmol/L 21.0-32.0 [facility] Natriuretic peptide B (Bld) [Mass/Vol] 17.5 pg/mL 0-100 [facility] Urea nitrogen/Creatinine [Mass ratio] 13.0 mg/mg 10-20 [facility] Laboratory - Hematology and Cell countsOrdered By: Karen Palacios on 04-18-2023 Erythrocyte distribution width (RBC) [Entitic vol] 47.6 fL 35.1-43.9 [facility] Erythrocyte distribution width (RBC) [Ratio] 15.1 % 11.6-14.6 [facility] Immature granulocytes/100 WBC (Bld) 0.400 % 0.0-0.9 [facility] Comment on above: IG% - Immature Granu locytes (promyelocytes, myelocytes and metamyelocytes) > 1% indicates that a LEFT SHIFT is Present. MCH (RBC) [Entitic mass] 27.4 pg 27.0-32.0 [facility] Nucleated RBC/100 WBC (Bld) [Ratio] 0 % 0-5 [facility] MCHC Auto (RBC) [Mass/Vol]Or dered By: Karen Palacios on 04-18-2023 MCHC (RBC) [Mass/Vol] 31.8 g/dL 32-36 [facility] No Panel InformationOrdered By: Karen Palacios on 04-18-2023 Troponin I High Sensitivity 9 pg/mL 3.0-54.0 [facility] Comment on above: Please Note: New Leora t Units and Gender Specific Reference Ranges. For more information see Policy Stat Procedure [place] High Sensitivity Troponin (TNIH) and attachments. Estimated Creatinine Clearance Calc 36.03 ml/min [facility] Estimated GFR (MDRD) Amer 50 mL/min >60 [facility] Comment on above: GFR Calc Estimated GFR (MDRD) Non-Af Amer 41 mL/min >60 [facility] Comment on above: Non- GFR Calc Platelets bldOrdered By: Meseret Palacios on 04-18-2023 Platelets (Bld) [#/Vol] 283 10*3/uL 150-450 [facility] Serum or plasma calcium alyse urement (mass/volume)Ordered By: Karen Palacios on 04-18-2023 Calcium [Mass/Vol] 9.3 mg/dL 8.5-10.1 [facility] Serum or plasma creatinine m easurement (mass/volume)Ordered By: Karen Palacios on 04-18-2023 Creatinine [Mass/Vol] 1.38 mg/dL 0.55-1.02 [facility] Comment on above: The validity of the calculated GFR & GFRAA in patients over 70 years has not been determined. Clinical correlation is essential. Serum or plasma urea nitroge n measurement (mass/volume)Ordered By: Karen Palacios on 04-18-2023 Urea nitrogen [Mass/Vol] 18 mg/dL 02-03 [facility] Thin prep Papanicolaou smear with manual screeningOrdered By: Karen Palacios on 04-18-2023 Thin prep Papanicolaou smear with manual screening 7 - [facility] CBC panel Auto (Bld)on 11-18 Erythrocyte distribution width (RBC) [Ratio] 14.7 % 11.0 - 15.0 % [facility] Hematocrit (Bld) [Volume fraction] 41.3 % 35.0 - 45.0 % [facility] Hemoglobin (Bld) [Mass/Vol] 13.4 g/dL 11.7 - 15.5 g/dL [facility] MCH (RBC) [Entitic mass] 27.6 pg 27. 0 - 33.0 pg [facility] MCHC (RBC) [Mass/Vol] 32.4 g/dL 32.0 - 36.0 g/dL [facility] MCV (RBC) [Entitic vol] 85.0 fL 80.0 - 100.0 fL [facility] Platelet mean volume (Bld) [Entitic vol] 9.6 fL 7.5 - 12.5 fL [facility] Platelets (Bld) [#/Vol] 299 10*3/uL [facility] RBC (Bld) [#/Vol] 4.86 10*6/uL [facility] WBC (Bld) [#/Vol] 10.9 10*3/uL High [facility] Comprehensive metabolic 1998 panelon 11-18-2022 Albumin [Mass/Vol] 4.2 g/dL 3.6 - 5.1 g/dL [facility] ALP [Catalytic activity/Vol] 81 U/L 37 - 153 U/L [facility] ALT [Catalytic activity/Vol] 15 U/L 6 - 29 U/L [facility] Anion gap [Moles/Vol] 9 mmol/L [facility] [employer] AST [Catalytic activity/Vol] 16 U/L 10 - 35 U/L [facility] [employer] Bilirubin [Mass/Vol] 0.8 mg/dL 0.2 - 1 .2 mg/dL [facility] [employer] Calcium [Mass/Vol] 9.6 mg/dL 8.6 - 10. 4 mg/dL [facility] [employer] Chloride [Moles/Vol] 102 mmol/L 98 - 11 0 mmol/L [facility] [employer] CO2 [Moles/Vol] 27 mmol/L 20 - 32 mmol/L [facility] Creatinine [Mass/Vol] 0.85 mg/dL 0.50 - 1.05 mg/dL [facility] GFR/1.73 sq M.predicted among non-blacks MDRD (S/P/Bld) [Vol rate/Area] 77 mL/min/{1.73_m2} > OR = 60 mL/min/1.73m2 [facility] Comment on above: The eGFR is based on the CKD-EPI 2020 equation. To calculate the new eGFR from a previous Creatinine or Cystatin C result, go to https://www.kidney.org/professionals/ kdoqi/gfr%5Fcalculator Glucose [Mass/Vol] 136 mg/dL High 65 - 99 mg/dL [facility] Comment on above: Fasting reference interval For someone without known diabetes, a glucose value >125 mg/dL indicates that they may have diabetes and this should be confirmed with a follow-up test. Potassium [Moles/Vol] 4.1 mmol/L 3.5 - 5.3 mmol/L [facility] [employer] Protein [Mass/Vol] 6.8 g/dL 6.1 - 8.1 g/dL [facility] [employer] Sodium [Moles/Vol] 138 mmol/L 135 - 146 mmol/L [facility] Urea nitrogen [Mass/Vol] 15 mg/dL 7 - 25 mg/d L [facility] [employer] Hemoglobin A1con 11-18-2022 HbA1c (Bld) [Mass fraction] 7.6 % High [facility] Comment on above: For someone without known diabetes, a hemoglobin A1c value of 6.5% or greater indicates that they may have diabetes and this should be confirmed with a follow-up test. For someone with known diabetes, a value <7% indicates that their diabetes is well controlled and a value greater than or equal to 7% indicates suboptimal control. A1c targets should be individualized based on duration of diabetes, age, comorbid conditions, and other considerations. Currently, no consensus exists regarding use of hemoglobin A1c for diagnosis of diabetes for children. Lipid 1996 panelon 3 Cholesterol [Mass/Vol] 116 mg/dL [facility] - 200 mg/dL [facility] Cholesterol in HDL [Mass/Vol] 38 mg/dL Low > OR = 50 [facility] Cholesterol in LDL [Mass/Vol] 52 mg/dL mg/dL (calc) [facility] Comment on above: Reference range: <10 0 Desirable range <100 mg/dL for primary prevention; <70 mg/dL for patients with CHD or diabetic patients with > or = 2 CHD risk factors. LDL-C is now calculated using the Ike-Fatmata calculation, which is a validated novel method providing better accuracy than the Friedewald equation in the estimation of LDL-C. Ike LEBRON et al. MILDRED. 2013;310(19): 5537-3171 (http://education.[employer].FlowCardia/faq/BCK153) Cholesterol non HDL [Mass/Vol] 78 mg/dL [facility] Comment on above: For patients with di abetes plus 1 major ASCVD risk factor, treating to a non-HDL-C goal of <100 mg/dL (LDL-C of <70 mg/dL) is considered a therapeutic option. Cholesterol.total/Choles terol in HDL [Mass ratio] 3.1 {ratio} [facility] Triglyceride [Mass/Vol] 193 mg/dL High [facility] - 150 mg/dL [facility] Microalbumin/Creatinine rati o panel (U)on 11-18-2022 Albumin DL <= 20 mg/L (U) [Mass/Vol] mg/dL See Note: mg/dL [facility] Comment on above: Reference Range: Reference Range Not established Albumin/Creatinine (U) [Mass ratio] NOTE [facility] Comment on above: NOTE: The urine albu min value is less than 0.2 mg/dL therefore we are unable to calculate excretion and/or creatinine ratio. The ADA defines abnormalities in albumin excretion as follows: Albuminuria Category Result (mcg/mg creatinine) Normal to Mildly increased <30 Moderately increased 30-299 Severely increased > OR = 300 The ADA recommends that at least two of three specimens collected within a 3-6 month period be abnormal before considering a patient to be within a diagnostic category. Creatinine (U) [Mass/Vol] 29 mg/dL 20 - 275 mg/dL [facility] No Panel Informationon 11-18 Interpretation and review of laboratory results Abnormal [facility] TSHon 11-18-2022 TSH Qn 3.33 m[IU]/L [facility] ALLERGEN, REGION 5 RESPIRATO RY PANELon 10-17-2022 A. alternata IgE Qn (S) <0.10 kU/L [facility] A. alternata IgE RAST class (S) 0 [facility] A. fumigatus IgE Qn (S) <0.10 kU/L [facility] A. fumigatus IgE RAST class (S) 0 [facility] Danish house dust mite IgE Qn (S) <0.10 kU/L [facility] Danish house dust mite IgE RAST class (S) 0 [facility] [place] grass IgE Qn (S) <0.10 kU/L [facility] [place] grass IgE RAST class (S) 0 [facility] Boxelder IgE Qn (S) <0.10 kU/L [facility] Boxelder IgE RAST class (S) 0 [facility] C. herbarum IgE Qn (S) <0.10 kU/L [facility] C. herbarum IgE RAST class (S) 0 [facility] [place] Pollen IgE Qn (S) <0.10 kU/L [facility] Pollen IgE RAST class (S) 0 [facility] Cat dander IgE Qn (S) <0.10 kU/L [facility] Cat dander IgE RAST class (S) 0 [facility] Cockroach IgE Qn (S) <0.10 kU/L [facility] Cockroach IgE RAST class (S) 0 [facility] Common Pigweed IgE Qn (S) <0.10 kU/L [facility] Common Pigweed IgE RAST class (S) 0 [facility] Common Ragweed IgE Qn (S) <0.10 kU/L [facility] Common Ragweed IgE RAST class (S) 0 [facility] [place] IgE Qn (S) <0.10 kU/L [facility] [place] IgE RAST class (S) 0 [facility] Dog dander IgE Qn (S) <0.10 kU/L [facility] Dog dander IgE RAST class (S) 0 [facility] house dust mite IgE Qn (S) <0.10 kU/L [facility] house dust mite IgE RAST class (S) 0 [facility] IgE Qn 3 kU/L [facility] Plane IgE Qn (S) <0.10 kU/L [facility] Plane IgE RAST class (S) 0 [facility] Mountain Juniper IgE Qn (S) <0.10 kU/L [facility] Juniper IgE RAST class (S) 0 [facility] Mouse urine proteins IgE Qn (S) <0.10 kU/L [facility] Mouse urine proteins IgE RAST class (S) 0 [facility] P. notatum IgE Qn (S) <0.10 kU/L [facility] P. notatum IgE RAST class (S) 0 [facility] Pecan or [place] Tree IgE Qn (S) <0.10 kU/L [facility] Pecan or Gilmer Tree IgE RAST class (S) 0 [facility] Reference Lab Test Reference Range [facility] Comment on above: Specific Level of Allergen IGE Class kU/L Specific IGE Antibody ----- --------- 0 <0.10 Absent/Undetectable 0/1 0.10-0.34 Very Low Level 1 0.35-0.69 Low Level 2 0.70-3.49 Moderate Level 3 3.50-17.4 High Level 4 17.5-49.9 Very High Level 5 50-100 Very High Level 6 >100 Very High Level The clinical relevance of allergen results of 0.10-0.34 kU/L are undetermined and intended for specialist use. Allergens denoted with a include results using one or more analyte specific reagents. In those cases, the test was developed and its analytical performance characteristics have been determined by [employer]. It has not been cleared or approved by the U.S. Food and Drug Administration. This assay has been validated pursuant to the CLIA regulations and is used for clinical purposes. Saltwort IgE Qn (S) <0.10 kU/L [facility] Saltwort IgE RAST class (S) 0 [facility] Sheep [place] IgE Qn (S) <0.10 kU/L [facility] Sheep [place] IgE RAST class (S) 0 [facility] Silver Birch IgE Qn (S) <0.10 kU/L [facility] Silver Birch IgE RAST class (S) 0 [facility] [place] IgE Qn (S) <0.10 kU/L [facility] [place] IgE RAST class (S) 0 [facility] [place] IgE Qn (S) <0.10 kU/L [facility] [place] [facility] class (S) [address] [facility] [place] IgE Qn (S) <0.10 kU/L [facility] [place] IgE RAST class (S) 0 [facility] White mulberry IgE Qn (S) <0.10 kU/L [facility] White mulberry IgE RAST class (S) 0 [facility] [place] IgE Qn (S) <0.10 kU/L [facility] [place] IgE RAST class (S) 0 [facility] XR HIP RIGHT (2-3 VIEWS)on 0 09-26-2019 Patient Name: YUE IBRAHIM ---Diagnostic Radiology--- Exam Date/Time 09/26/2019 15:18:45 EDT Exam CR Hip w/ Pelvis 2 or 3 Views Right n Ordering Physician GREGORIO CASTANON HOLLY S Accession Number [id number] CPT4 Codes 94172 () Reason For Exam chronic right hip pain Report CLINICAL INDICATION: Right hip pain A single AP view of the pelvis followed by AP and lateral views of the right hip were obtained. COMPARISON: None FINDINGS: No fracture or dislocation of the pelvis or right hip is identified. Moderate of joint space and acetabular spurring is noted within the left and right hip joints. The sacroiliac joints appear grossly unremarkable. No lytic or blastic bony lesions are seen. IMPRESSION: Osteoarthritic degenerative changes of both hips. No acute bony abnormality. Report Dictated on --- Final --- Dictating Physician: MD EVANGELISTA LAURA Signed Date and Time: 09/26/2019 5:41 pm Signed by: MD EVANGELISTA LAURA Transcribed Date and Time: 09/26/2019 5:42 [place], [place] Jose, Yuridia Incoming Radiology Results From [facility] - 09/26/2019 5:42 PM EDT Patient Name: YUE IBRAHIM ---Diagnostic Radiology--- Exam Date/Time 09/26/2019 15:18:45 EDT Exam CR Hip w/ Pelvis 2 or 3 Views Right n Ordering Physician GREGORIO CASTANON HOLLY S Accession Number [id number] CPT4 Codes 61608 () Reason For Exam chronic right hip pain Report CLINICAL INDICATION: Right hip pain A single AP view of the pelvis followed by AP and lateral views of the right hip were obtained. COMPARISON: None FINDINGS: No fracture or dislocation of the pelvis or right hip is identified. Moderate of joint space and acetabular spurring is noted within the left and right hip joints. The sacroiliac joints appear grossly unremarkable. No lytic or blastic bony lesions are seen. IMPRESSION: Osteoarthritic degenerative changes of both hips. No acute bony abnormality. Report Dictated on --- Final --- Dictating Physician: MD EVANGELISTA LAURA Signed Date and Time: 09/26/2019 5:41 pm Signed by: MD EVANGELISTA LAURA Transcribed Date and Time: 09/26/2019 5:42 [place], [place] DISCHARGE SUMMARYon 04-12-20 17 DISCHARGE SUMMARY The required clinical documentation could not be extracted for this report. Please refer to the [facility] Record or contact the HIM Department at [facility] ([phone]) to obtain a copy of this report. Normal [facility] DISCHARGE SUMMARY PDF Normal [facility] Basic Panelon 04-08-2017 Creatinine 0.77 mg/dL Normal 0.51-0.95 [facility] Comment on above: Performed By: #### P 8 ####[place] [address] Urea nitrogen 10 mg/dL Normal 7-18 [facility] Comment on above: Performed By: #### P 8 ####[facility] [place], [place] [address] Anion gap 11 mmol/L Normal 8-16 [facility] Comment on above: Performed By: #### P 8 ####[facility] [place], [place] [address] Calcium 9.0 mg/dL Normal 8.5-10.1 [facility] Comment on above: Performed By: #### P 8 ####[facility] [place], [place] [address] CO2 26 mmol/L Normal 21-32 [facility] Comment on above: Performed By: #### P 8 ####[facility] [place], [place] [address] Glucose mass conc 160 mg/dL High 70-99 [facility] Comment on above: Performed By: #### P 8 ####[address] [address] Chloride 104 mmol/L Normal 98-107 [facility] Comment on above: Performed By: #### P 8 ####[address] [address] Potassium molar conc 4.2 mmol/L Normal 3.5-5.1 [facility] Comment on above: Performed By: #### P 8 ####[address] [address] Sodium 137 mmol/L Normal 136-145 [facility] Comment on above: Performed By: #### P 8 ####[address] [address] Glucose Meteron 04-08-2017 Glucose mass conc 168 mg/dL High 70-99 [facility] Comment on above: Result Comment: FIONA RODRIGUEZ Performed By: #### G LMET ####[address] [address] Glucose mass conc 153 mg/dL High 70-99 [facility] Comment on above: Performed By: #### G LMET ####[address] [address] Hemogramon 04-08-2017 Erythrocyte distribution width Auto Ratio (RBC) 15.1 % High 11.7-14.4 [facility] Comment on above: Performed By: #### C BC1 ####[address] [address] Erythrocytes (RBC) 4.55 mil/cmm Normal 3.93-5.22 [facility] Comment on above: Performed By: #### C BC1 ####[place] [address] Hematocrit (HCT) 40.4 % Normal 34.1-44.9 [facility] Comment on above: Performed By: #### C BC1 ####[place] [address] Hemoglobin mass conc (Bld) 13.1 g/dL Normal 11.2-15.7 [facility] Comment on above: Performed By: #### C BC1 ####[place] [address] MCH 28.8 pg Normal 25.6-32.2 [facility] Comment on above: Performed By: #### C BC1 ####[place] [address] MCHC mass conc (RBC) 32.4 % Normal 31.6-34.8 [facility] Comment on above: Performed By: #### C BC1 ####[place] [address] MCV 88.8 fL Normal 79.4-94.8 [facility] Comment on above: Performed By: #### C BC1 ####[place] [address] Platelet mean volume (PMV) 9.2 fL Low 9.4-12.3 [facility] Comment on above: Performed By: #### C BC1 ####[address] [address] Platelets 210 thou/cmm Normal 182-369 [facility] Comment on above: Performed By: #### C BC1 ####[address], [place] [address] RDW SD 49.1 fl High 36.4-46.3 [facility] Comment on above: Performed By: #### C BC1 ####[facility] [place], [place] [address] WBC (Leukocytes) 8.53 thou/cmm Normal 3.98-10.04 [facility] Comment on above: Performed By: #### C BC1 ####[place] [id number] MDRD GFRon 04-08-2017 eGFR (non-black) mL/min/{1.73_m2} Normal >60mL/m in/1.7 3m2 [facility] Comment on above: Result Comment: If t he patient is , multiply the result by 1.210. Performed By: #### G FR ####[place] [address] Basic Panelon 04-07-2017 Creatinine 0.74 mg/dL Normal 0.51-0.95 [facility] Comment on above: Performed By: #### P 8 ####[place] [address] Glucose mass conc 170 mg/dL High 70-99 [facility] Comment on above: Performed By: #### P 8 ####[place] [address] Anion gap 12 mmol/L Normal 8-16 [facility] Comment on above: Performed By: #### P 8 ####[place] [address] CO2 22 mmol/L Normal 21-32 [facility] Comment on above: Performed By: #### P 8 ####[place] [address] Urea nitrogen 13 mg/dL Normal 7-18 [facility] Comment on above: Performed By: #### P 8 ####[place] [address] Calcium 8.8 mg/dL Normal 8.5-10.1 [facility] Comment on above: Performed By: #### P 8 ####[facility] [place], [place] [address] Chloride 105 mmol/L Normal 98-107 [facility] Comment on above: Performed By: #### P 8 ####[facility] [place], [place] [address] Potassium molar conc 4.1 mmol/L Normal 3.5-5.1 [facility] Comment on above: Performed By: #### P 8 ####[facility] [place], [place] [address] Sodium 135 mmol/L Low 136-145 [facility] Comment on above: Performed By: #### P 8 ####[address] [address] Glucose Meteron 04-07-2017 Glucose mass conc 160 mg/dL High 70-99 [facility] Comment on above: Result Comment: FIONA RODRIGUEZ Performed By: #### G LMET ####[address] [address] Hemogramon 04-07-2017 Erythrocyte distribution width Auto Ratio (RBC) 15.0 % High 11.7-14.4 [facility] Comment on above: Performed By: #### C BC1 ####[address] [address] Erythrocytes (RBC) 4.98 mil/cmm Normal 3.93-5.22 [facility] Comment on above: Performed By: #### C BC1 ####[address] [address] Hematocrit (HCT) 43.2 % Normal 34.1-44.9 [facility] Comment on above: Performed By: #### C BC1 ####[address] [address] Hemoglobin mass conc (Bld) 14.1 g/dL Normal 11.2-15.7 [facility] Comment on above: Performed By: #### C BC1 ####[address] [address] MCH 28.3 pg Normal 25.6-32.2 [facility] Comment on above: Performed By: #### C BC1 ####[facility] [place], [place] [address] MCHC mass conc (RBC) 32.6 % Normal 31.6-34.8 [facility] Comment on above: Performed By: #### C BC1 ####[facility] [place], [place] [address] MCV 86.7 fL Normal 79.4-94.8 [facility] Comment on above: Performed By: #### C BC1 ####[address] [address] Platelet mean volume (PMV) 9.9 fL Normal 9.4-12.3 [facility] Comment on above: Performed By: #### C BC1 ####[address] [address] Platelets 282 thou/cmm Normal 182-369 [facility] Comment on above: Performed By: #### C BC1 ####[address] [address] RDW SD 47.8 fl High 36.4-46.3 [facility] Comment on above: Performed By: #### C BC1 ####[address] [address] WBC (Leukocytes) 8.68 thou/cmm Normal 3.98-10.04 [facility] Comment on above: Performed By: #### C BC1 ####[address] [address] MDRD GFRon 04-07-2017 eGFR (non-black) mL/min/{1.73_m2} Normal >60mL/m in/1.7 3m2 [facility] Comment on above: Result Comment: If t he patient is , multiply the result by 1.210. Performed By: #### G FR ####[address] [address] Vital Signs Date Time Vital Sign Value Performing Clinician Facility 02-22-2025 13:04-0400 Body height 161.3 cm Rafaela Castanon REAL ESTATE TEACHER - LICENSED LOAN OFFICER ASSISTANT Work Phone: [facility] 02-22-2025 13:04-0400 Body mass index (BMI) [Ratio] 42.86 kg/m2 Rafaela Castanon REAL ESTATE TEACHER - LICENSED LOAN OFFICER ASSISTANT Work Phone: [facility] 02-22-2025 13:04-0400 Body weight 111.49 kg Rafaela Castanon REAL ESTATE TEACHER - LICENSED LOAN OFFICER ASSISTANT Work Phone: [facility] 02-22-2025 13:04-0400 Diastolic blood pressure 66 mm[Hg] Rafaela Castanon REAL ESTATE TEACHER - LICENSED LOAN OFFICER ASSISTANT Work Phone: [facility] 02-22-2025 13:04-0400 Heart rate 87 /min Rafaela Castanon REAL ESTATE TEACHER - LICENSED LOAN OFFICER ASSISTANT Work Phone: [facility] 02-22-2025 13:04-0400 SaO2% (BldA) [Mass fraction] 94 % Rafaela Castanon REAL ESTATE TEACHER - LICENSED LOAN OFFICER ASSISTANT Work Phone: [facility] 02-22-2025 13:04-0400 Systolic blood pressure 95 mm[Hg] Rafaela Castanon REAL ESTATE TEACHER - LICENSED LOAN OFFICER ASSISTANT Work Phone: [facility] 12-21-2024 08:52-0400 Body height 162.56 cm Rafaela Castanon FIELD NATURALIST-C Work Phone: [facility] 12-21-2024 08:52-0400 Body mass index (BMI) [Ratio] 41.8 kg/m2 Rafaela Castanon FIELD NATURALIST-C Work Phone: [facility] 12-21-2024 08:52-0400 Body weight 110.67 kg Rafaela Castanon FIELD NATURALIST-C Work Phone: [facility] 12-21-2024 08:52-0400 Diastolic blood pressure 68 mm[Hg] Rafaela Castanon FIELD NATURALIST-C Work Phone: [facility] 12-21-2024 08:52-0400 Heart rate 88 /min Rafaela Castanon FIELD NATURALIST-C Work Phone: [facility] 12-21-2024 08:52-0400 Respiratory rate 18 /min Rafaela Castanon FIELD NATURALIST-C Work Phone: [facility] 12-21-2024 08:52-0400 Systolic blood pressure 99 mm[Hg] Rafaela Castanon FIELD NATURALIST-C Work Phone: [facility] 12-06-2024 09:15-0400 Heart rate 87 /min Rafaela Castanon FIELD NATURALIST-C Work Phone: [facility] 12-06-2024 08:03-0400 Body temperature 97.8 [degF] Raafela Castanon FIELD NATURALIST-C Work Phone: [facility] 12-06-2024 08:03-0400 Diastolic blood pressure 67 mm[Hg] Rafaela Castanon FIELD NATURALIST-C Work Phone: [facility] 12-06-2024 08:03-0400 Respiratory rate 16 /min Rafaela Castanon FIELD NATURALIST-C Work Phone: [facility] 12-06-2024 08:03-0400 SaO2% (BldA) [Mass fraction] 96 % Rafaela Castanon FIELD NATURALIST-C Work Phone: [facility] 12-06-2024 08:03-0400 Systolic blood pressure 115 mm[Hg] Rafaela Castanon FIELD NATURALIST-C Work Phone: [facility] 12-05-2024 16:43-0400 Body temperature 98.1 [degF] Rafaela Castanon FIELD NATURALIST-C Work Phone: [facility] 12-05-2024 16:43-0400 Diastolic blood pressure 65 mm[Hg] Rafaela Castanon FIELD NATURALIST-C Work Phone: [facility] 12-05-2024 16:43-0400 Heart rate 89 /min Rafaela Castanon FIELD NATURALIST-C Work Phone: [facility] 12-05-2024 16:43-0400 Respiratory rate 15 /min Rafaela Castanon FIELD NATURALIST-C Work Phone: [facility] 12-05-2024 16:43-0400 SaO2% (BldA) [Mass fraction] 98 % Rafaela Castanon FIELD NATURALIST-C Work Phone: [facility] 12-05-2024 16:43-0400 Systolic blood pressure 111 mm[Hg] Rafaela Castanon FIELD NATURALIST-C Work Phone: [facility] 12-05-2024 07:49-0400 Body height 162.56 cm Rafaela Castanon FIELD NATURALIST-C Work Phone: [facility] 12-05-2024 07:49-0400 Body weight 112.94 kg Rafaela Castanon FIELD NATURALIST-C Work Phone: [facility] 12-02-2024 07:38-0400 Body mass index (BMI) [Ratio] 42.7 kg/m2 Rafaela Castanon FIELD NATURALIST-C Work Phone: [facility] 11-07-2024 07:40-0400 Body height 162.56 cm Rafaela Castanon FIELD NATURALIST-C Work Phone: [facility] 11-07-2024 07:40-0400 Body mass index (BMI) [Ratio] 42.7 kg/m2 Rafaela Castanon FIELD NATURALIST-C Work Phone: [facility] 11-07-2024 07:40-0400 Body weight 112.94 kg Rafaela Castanon FIELD NATURALIST-C Work Phone: [facility] 11-07-2024 07:40-0400 Diastolic blood pressure 66 mm[Hg] Rafaela Castanon FIELD NATURALIST-C Work Phone: [facility] 11-07-2024 07:40-0400 Heart rate 81 /min Rafaela Castanon FIELD NATURALIST-C Work Phone: [facility] 11-07-2024 07:40-0400 Respiratory rate 18 /min Rafaela Castanon FIELD NATURALIST-C Work Phone: [facility] 11-07-2024 07:40-0400 SaO2% (BldA) [Mass fraction] 96 % Rafaela Castanon FIELD NATURALIST-C Work Phone: [facility] 11-07-2024 07:40-0400 Systolic blood pressure 102 mm[Hg] Rafaela Castanon FIELD NATURALIST-C Work Phone: [facility] 08-16-2024 08:34-0500 Body height 162.56 cm Rafaela Castanon FIELD NATURALIST-C Work Phone: [facility] 08-16-2024 08:34-0500 Body mass index (BMI) [Ratio] 42.4 kg/m2 Rafaela Castanon FIELD NATURALIST-C Work Phone: [facility] 08-16-2024 08:34-0500 Body weight 112.03 kg Rafaela Castanon FIELD NATURALIST-C Work Phone: [facility] 08-16-2024 08:34-0500 Diastolic blood pressure 80 mm[Hg] Rafaela Castanon FIELD NATURALIST-C Work Phone: [facility] 08-16-2024 08:34-0500 Heart rate 93 /min Rafaela Castanon FIELD NATURALIST-C Work Phone: [facility] 08-16-2024 08:34-0500 Respiratory rate 16 /min Rafaela Castanon FIELD NATURALIST-C Work Phone: [facility] 08-16-2024 08:34-0500 Systolic blood pressure 113 mm[Hg] Rafaela Castanon FIELD NATURALIST-C Work Phone: [facility] 06-27-2024 10:59-0500 Body height 161.3 cm Rafaela Castanon REAL ESTATE TEACHER - LICENSED LOAN OFFICER ASSISTANT Work Phone: [facility] 06-27-2024 10:59-0500 Body mass index (BMI) [Ratio] 43.45 kg/m2 Rafaela Castanon REAL ESTATE TEACHER - LICENSED LOAN OFFICER ASSISTANT Work Phone: [facility] 06-27-2024 10:59-0500 Body weight 113.04 kg Rafaela Castanon REAL ESTATE TEACHER - LICENSED LOAN OFFICER ASSISTANT Work Phone: [facility] 06-27-2024 10:59-0500 Diastolic blood pressure 82 mm[Hg] Rafaela Castanon REAL ESTATE TEACHER - LICENSED LOAN OFFICER ASSISTANT Work Phone: [facility] 06-27-2024 10:59-0500 Heart rate 84 /min Rafaela Castanon REAL ESTATE TEACHER - LICENSED LOAN OFFICER ASSISTANT Work Phone: [facility] [employer] 06-27-2024 10:59-0500 SaO2% (BldA) [Mass fraction] 97 % Rafaela Castanon REAL ESTATE TEACHER - LICENSED LOAN OFFICER ASSISTANT Work Phone: [facility] [employer] 06-27-2024 10:59-0500 Systolic blood pressure 130 mm[Hg] Rafaela Castanon REAL ESTATE TEACHER - LICENSED LOAN OFFICER ASSISTANT Work Phone: [facility] [employer] 01-08-2024 09:37-0400 Body height 161.3 cm Rafaela Castanon REAL ESTATE TEACHER - LICENSED LOAN OFFICER ASSISTANT Work Phone: [facility] [employer] 01-08-2024 09:37-0400 Body mass index (BMI) [Ratio] 44.18 kg/m2 Rafaela Castanon REAL ESTATE TEACHER - LICENSED LOAN OFFICER ASSISTANT Work Phone: [facility] [employer] 01-08-2024 09:37-0400 Body weight 114.94 kg Rafaela Castanon REAL ESTATE TEACHER - LICENSED LOAN OFFICER ASSISTANT Work Phone: [facility] [employer] 01-08-2024 09:37-0400 Diastolic blood pressure 81 mm[Hg] Rafaela Castanon REAL ESTATE TEACHER - LICENSED LOAN OFFICER ASSISTANT Work Phone: [facility] [employer] 01-08-2024 09:37-0400 Heart rate 78 /min Rafaela Castanon REAL ESTATE TEACHER - LICENSED LOAN OFFICER ASSISTANT Work Phone: [facility] [employer] 01-08-2024 09:37-0400 SaO2% (BldA) [Mass fraction] 96 % Rafaela Castanon REAL ESTATE TEACHER - LICENSED LOAN OFFICER ASSISTANT Work Phone: [facility] [employer] 01-08-2024 09:37-0400 Systolic blood pressure 130 mm[Hg] Rafaela Castanon REAL ESTATE TEACHER - LICENSED LOAN OFFICER ASSISTANT Work Phone: [facility] [employer] 12-02-2023 14:41-0400 Body mass index (BMI) [Ratio] 44.74 kg/m2 Rafaela Castanon REAL ESTATE TEACHER - LICENSED LOAN OFFICER ASSISTANT Work Phone: [facility] [employer] 12-02-2023 14:41-0400 Body temperature 98.01 [degF] Rafaela Lg REAL ESTATE TEACHER - LICENSED LOAN OFFICER ASSISTANT Work Phone: [facility] [employer] 12-02-2023 14:41-0400 Body weight 116.39 kg Rafaela Castanon REAL ESTATE TEACHER - LICENSED LOAN OFFICER ASSISTANT Work Phone: [facility] [employer] 12-02-2023 14:41-0400 Diastolic blood pressure 70 mm[Hg] Rafaela Castanon REAL ESTATE TEACHER - LICENSED LOAN OFFICER ASSISTANT Work Phone: [facility] [employer] 12-02-2023 14:41-0400 Heart rate 90 /min Rafaela Castanon REAL ESTATE TEACHER - LICENSED LOAN OFFICER ASSISTANT Work Phone: [facility] [employer] [employer] 12-02-2023 14:41-0400 Respiratory rate 20 /min Rafaela Castanon REAL ESTATE TEACHER - LICENSED LOAN OFFICER ASSISTANT Work Phone: [facility] [employer] 12-02-2023 14:41-0400 SaO2% (BldA) [Mass fraction] 93 % Rafaela Castanon REAL ESTATE TEACHER - LICENSED LOAN OFFICER ASSISTANT Work Phone: [facility] [employer] 12-02-2023 14:41-0400 Systolic blood pressure 124 mm[Hg] Rafaela Castanon REAL ESTATE TEACHER - LICENSED LOAN OFFICER ASSISTANT Work Phone: [facility] [employer] 10-05-2023 09:13-0400 Diastolic blood pressure 72 mm[Hg] Rafaela Castanon REAL ESTATE TEACHER - LICENSED LOAN OFFICER ASSISTANT Work Phone: [facility] [employer] 10-05-2023 09:13-0400 Systolic blood pressure 126 mm[Hg] Rafaela Castanon REAL ESTATE TEACHER - LICENSED LOAN OFFICER ASSISTANT Work Phone: [facility] [employer] 10-05-2023 08:57-0400 Body height 161.3 cm Rafaela Castanon REAL ESTATE TEACHER - LICENSED LOAN OFFICER ASSISTANT Work Phone: [facility] [employer] 10-05-2023 08:57-0400 Body mass index (BMI) [Ratio] 45.19 kg/m2 Rafaela Castanon REAL ESTATE TEACHER - LICENSED LOAN OFFICER ASSISTANT Work Phone: [facility] [employer] 10-05-2023 08:57-0400 Body weight 117.57 kg Rafaela Castanon REAL ESTATE TEACHER - LICENSED LOAN OFFICER ASSISTANT Work Phone: [facility] [employer] 10-05-2023 08:57-0400 Heart rate 70 /min Rafaela Castanon REAL ESTATE TEACHER - LICENSED LOAN OFFICER ASSISTANT Work Phone: [employer] 10-05-2023 08:57-0400 SaO2% (BldA) [Mass fraction] 98 % Rafaela Castanon REAL ESTATE TEACHER - LICENSED LOAN OFFICER ASSISTANT Work Phone: [employer] 08-24-2023 11:17-0500 Diastolic blood pressure 78 mm[Hg] Rafaela Castanon REAL ESTATE TEACHER - LICENSED LOAN OFFICER ASSISTANT Work Phone: [employer] 08-24-2023 11:17-0500 Systolic blood pressure 128 mm[Hg] Rafaela Castanon REAL ESTATE TEACHER - LICENSED LOAN OFFICER ASSISTANT Work Phone: [employer] 08-24-2023 10:48-0500 Body height 161.3 cm Rafaela Castanon REAL ESTATE TEACHER - LICENSED LOAN OFFICER ASSISTANT Work Phone: [employer] 08-24-2023 10:48-0500 Body mass index (BMI) [Ratio] 44.81 kg/m2 Rafaela Castanon REAL ESTATE TEACHER - LICENSED LOAN OFFICER ASSISTANT Work Phone: [employer] 08-24-2023 10:48-0500 Body weight 116.57 kg Rafaela Castanon REAL ESTATE TEACHER - LICENSED LOAN OFFICER ASSISTANT Work Phone: [employer] 08-24-2023 10:48-0500 Heart rate 73 /min Rafaela Castanon REAL ESTATE TEACHER - LICENSED LOAN OFFICER ASSISTANT Work Phone: [employer] 08-24-2023 10:48-0500 SaO2% (BldA) [Mass fraction] 96 % Rafaela Castanon REAL ESTATE TEACHER - LICENSED LOAN OFFICER ASSISTANT Work Phone: [employer] 06-17-2023 13:15-0500 Body height 161.3 cm Rafaela Castanon REAL ESTATE TEACHER - LICENSED LOAN OFFICER ASSISTANT Work Phone: [employer] 06-17-2023 13:15-0500 Body mass index (BMI) [Ratio] 44.08 kg/m2 Rafaela Castanon REAL ESTATE TEACHER - LICENSED LOAN OFFICER ASSISTANT Work Phone: [employer] 06-17-2023 13:15-0500 Body weight 114.67 kg Rafaela Castanon REAL ESTATE TEACHER - LICENSED LOAN OFFICER ASSISTANT Work Phone: [facility] 06-17-2023 13:15-0500 Diastolic blood pressure 79 mm[Hg] Rafaela Castanon REAL ESTATE TEACHER - LICENSED LOAN OFFICER ASSISTANT Work Phone: [facility] 06-17-2023 13:15-0500 Heart rate 73 /min Rafaela Lg REAL ESTATE TEACHER - LICENSED LOAN OFFICER ASSISTANT Work Phone: [facility] 06-17-2023 13:15-0500 SaO2% (BldA) [Mass fraction] 96 % Rafaela Lg REAL ESTATE TEACHER - LICENSED LOAN OFFICER ASSISTANT Work Phone: [facility] 06-17-2023 13:15-0500 Systolic blood pressure 136 mm[Hg] Rafaela Castanon REAL ESTATE TEACHER - LICENSED LOAN OFFICER ASSISTANT Work Phone: [facility] 05-04-2023 08:38-0400 Body height 162.[address] Romulo Latif Work Phone: [facility] 05-04-2023 08:38-0400 Body weight 113.[address] Romulo Latif Work Phone: [facility] 05-01-2023 09:01-0400 Body mass index (BMI) [Ratio] 42.9 kg/m2 Dr. Romulo Latif Work Phone: [facility] 04-23-2023 13:33-0400 Body mass index (BMI) [Ratio] 42.9 kg/m2 Dr. Romulo Latif Work Phone: [facility] 04-23-2023 13:33-0400 Body weight 113.[address] Romulo Latif Work Phone: [facility] 04-23-2023 13:33-0400 Diastolic blood pressure 78 mm[Hg] Dr. Romulo Latif Work Phone: [facility] 04-23-2023 13:33-0400 Heart rate 71 /min Dr. Romulo Latif Work Phone: [facility] 04-23-2023 13:33-0400 Respiratory rate 20 /min Dr. Romulo Latif Work Phone: [facility] 04-23-2023 13:33-0400 Systolic blood pressure 112 mm[Hg] Dr. Romulo Latif Work Phone: [facility] 04-18-2023 21:45-0400 Heart rate 85 /min Dr. Romulo Latif Work Phone: [facility] 04-18-2023 21:45-0400 Respiratory rate 18 /min Dr. Romulo Latif Work Phone: [facility] 04-18-2023 21:45-0400 SaO2% (BldA) [Mass fraction] 98 % Dr. Romulo Latif Work Phone: [facility] 04-18-2023 17:37-0400 Diastolic blood pressure 91 mm[Hg] Dr. Romulo Latif Work Phone: [facility] 04-18-2023 17:37-0400 Systolic blood pressure 132 mm[Hg] Dr. Romulo Latif Work Phone: [facility] 04-18-2023 17:30-0400 Body height 162.[address] Romulo Latif Work Phone: [facility] 04-18-2023 17:30-0400 Body mass index (BMI) [Ratio] 43.2 kg/m2 Dr. Romulo Latif Work Phone: [facility] 04-18-2023 17:30-0400 Body temperature 97.3 [degF] Dr. Romulo Latif Work Phone: [facility] 04-18-2023 17:30-0400 Body weight 114.[address] Romulo Latif Work Phone: [facility] 03-27-2023 13:05-0400 Body mass index (BMI) [Ratio] 44.2 kg/m2 Dr. Romulo Latif Work Phone: [facility] 03-27-2023 13:05-0400 Body weight 113.[address] Romulo Latif Work Phone: [facility] 03-27-2023 13:05-0400 Diastolic blood pressure 79 mm[Hg] Dr. Romulo Latif Work Phone: [facility] 03-27-2023 13:05-0400 Heart rate 62 /min Dr. Romulo Latif Work Phone: [facility] 03-27-2023 13:05-0400 Respiratory rate 20 /min Dr. Romulo Latif Work Phone: [facility] 03-27-2023 13:05-0400 SaO2% (BldA) [Mass fraction] 97 % Dr. Romulo Latif Work Phone: [facility] 03-27-2023 13:05-0400 Systolic blood pressure 132 mm[Hg] Dr. Romulo Latif Work Phone: [facility] 03-18-2023 13:02-0400 Body height 161.3 cm Rafaela Castanon REAL ESTATE TEACHER - LICENSED LOAN OFFICER ASSISTANT Work Phone: [facility] 03-18-2023 13:02-0400 Body mass index (BMI) [Ratio] 43.94 kg/m2 Rafaela Castanon REAL ESTATE TEACHER - LICENSED LOAN OFFICER ASSISTANT Work Phone: [facility] 03-18-2023 13:02-0400 Body weight 114.31 kg Rafaela Castanon REAL ESTATE TEACHER - LICENSED LOAN OFFICER ASSISTANT Work Phone: [facility] 03-18-2023 13:02-0400 Diastolic blood pressure 86 mm[Hg] Rafaela Castanon REAL ESTATE TEACHER - LICENSED LOAN OFFICER ASSISTANT Work Phone: [facility] 03-18-2023 13:02-0400 Heart rate 64 /min Rafaela Castanon REAL ESTATE TEACHER - LICENSED LOAN OFFICER ASSISTANT Work Phone: [facility] 03-18-2023 13:02-0400 SaO2% (BldA) [Mass fraction] 99 % Rafaela Castanon REAL ESTATE TEACHER - LICENSED LOAN OFFICER ASSISTANT Work Phone: [facility] 03-18-2023 13:02-0400 Systolic blood pressure 130 mm[Hg] Rafaela Castanon REAL ESTATE TEACHER - LICENSED LOAN OFFICER ASSISTANT Work Phone: [facility] [employer] 11-17-2022 08:20-0400 Body height 161.3 cm Rafaela Castanon REAL ESTATE TEACHER - LICENSED LOAN OFFICER ASSISTANT Work Phone: [facility] [employer] 11-17-2022 08:20-0400 Body mass index (BMI) [Ratio] 42.54 kg/m2 Rafaela Castanon REAL ESTATE TEACHER - LICENSED LOAN OFFICER ASSISTANT Work Phone: [facility] [employer] 11-17-2022 08:20-0400 Body weight 110.68 kg Rafaela Castanon REAL ESTATE TEACHER - LICENSED LOAN OFFICER ASSISTANT Work Phone: [facility] [employer] 11-17-2022 08:20-0400 Diastolic blood pressure 72 mm[Hg] Rafaela Castanon REAL ESTATE TEACHER - LICENSED LOAN OFFICER ASSISTANT Work Phone: [facility] [employer] 11-17-2022 08:20-0400 Heart rate 60 /min Rafaela Castanon REAL ESTATE TEACHER - LICENSED LOAN OFFICER ASSISTANT Work Phone: [facility] [employer] 11-17-2022 08:20-0400 SaO2% (BldA) [Mass fraction] 99 % Rafaela Castanon REAL ESTATE TEACHER - LICENSED LOAN OFFICER ASSISTANT Work Phone: [facility] [employer] 11-17-2022 08:20-0400 Systolic blood pressure 120 mm[Hg] Rafaela Castanon REAL ESTATE TEACHER - LICENSED LOAN OFFICER ASSISTANT Work Phone: [facility] [employer] 10-16-2022 10:55-0400 Body mass index (BMI) [Ratio] 42.02 kg/m2 Marie Bridenthal REAL ESTATE TEACHER - LICENSED LOAN OFFICER ASSISTANT Work Phone: [facility] [employer] 10-16-2022 10:55-0400 Body weight 109.32 kg Marie Bridenthal REAL ESTATE TEACHER - LICENSED LOAN OFFICER ASSISTANT Work Phone: [facility] [employer] 10-16-2022 10:55-0400 Diastolic blood pressure 60 mm[Hg] Marie Bridenthal REAL ESTATE TEACHER - LICENSED LOAN OFFICER ASSISTANT Work Phone: [facility] [employer] 10-16-2022 10:55-0400 Heart rate 77 /min Marie Bridenthal REAL ESTATE TEACHER - LICENSED LOAN OFFICER ASSISTANT Work Phone: [facility] 10-16-2022 10:55-0400 Respiratory rate 18 /min Marie Bridenthal REAL ESTATE TEACHER - LICENSED LOAN OFFICER ASSISTANT Work Phone: [facility] 10-16-2022 10:55-0400 SaO2% (BldA) [Mass fraction] 99 % Marie Antwonenthal REAL ESTATE TEACHER - LICENSED LOAN OFFICER ASSISTANT Work Phone: [facility] 10-16-2022 10:55-0400 Systolic blood pressure 102 mm[Hg] Marie Antwonenthal REAL ESTATE TEACHER - LICENSED LOAN OFFICER ASSISTANT Work Phone: [facility] 10-21-2021 14:35-0400 Body height 160.02 cm FIELD NATURALIST-C Rafaela Catsanon FIELD NATURALIST Work Phone: [facility] Work Phone: 10-21-2021 14:35-0400 Body weight 120.25 kg FIELD NATURALIST-C Rafaela Castanon FIELD NATURALIST Work Phone: [facility] Work Phone: 10-21-2021 14:35-0400 Diastolic blood pressure 82 mm[Hg] FIELD NATURALIST-C Rafaela Castanon FIELD NATURALIST Work Phone: [facility] Work Phone: 10-21-2021 14:35-0400 Heart rate 72 /min FIELD NATURALIST-C Rafaela Castanon FIELD NATURALIST Work Phone: [facility] Work Phone: 10-21-2021 14:35-0400 Respiratory rate 16 /min FIELD NATURALIST-C Rafaela Castanon FIELD NATURALIST Work Phone: [facility] Work Phone: 10-21-2021 14:35-0400 Systolic blood pressure 122 mm[Hg] FIELD NATURALIST-C Rafaela Castanon FIELD NATURALIST Work Phone: [facility] Work Phone: 08-09-2021 08:00-0500 Body mass index (BMI) [Ratio] 47.2 kg/m2 FIELD NATURALIST-C Rafaela Castanon FIELD NATURALIST Work Phone: [facility] Work Phone: 08-09-2021 08:00-0500 Body temperature 98.2 [degF] FIELD NATURALIST-C Rafaela Castanon FIELD NATURALIST Work Phone: [facility] Work Phone: 08-09-2021 08:00-0500 Body weight 121.1 kg FIELD NATURALIST-C Rafaela Castanon FIELD NATURALIST Work Phone: [facility] Work Phone: 08-09-2021 08:00-0500 Diastolic blood pressure 85 mm[Hg] FIELD NATURALIST-C Rafaela Castanon FIELD NATURALIST Work Phone: [facility] Work Phone: 08-09-2021 08:00-0500 Heart rate 74 /min FIELD NATURALIST-C Rafaela Castanon FIELD NATURALIST Work Phone: [facility] Work Phone: 08-09-2021 08:00-0500 Respiratory rate 18 /min FIELD NATURALIST-C Rafaela Castanon FIELD NATURALIST Work Phone: [facility] Work Phone: 08-09-2021 08:00-0500 SaO2% (BldA) [Mass fraction] 100 % FIELD NATURALIST-C Rafaela Castanon FIELD NATURALIST Work Phone: [facility] Work Phone: 08-09-2021 08:00-0500 Systolic blood pressure 130 mm[Hg] FIELD NATURALIST-C Rafaela Castanon FIELD NATURALIST Work Phone: [facility] Work Phone: 12-28-2020 11:12-0400 Body mass index (BMI) [Ratio] 44.9 kg/m2 FIELD NATURALIST-Danyell Castanon FIELD NATURALIST Work Phone: [facility] Work Phone: Encounters Encounter Date Encounter Type Care Provider Facility Start: 03-10-2025 End: 03-14-2025 Orders Only Rafaela Castanon REAL ESTATE TEACHER - LICENSED LOAN OFFICER ASSISTANT Work Phone: [facility] Comment on above: Insomnia, unspecifie d type Start: 03-03-[facility] Start: 02-24-2025 End: 02-24-2025 Telephone encounter Romulo Latif MD Work Phone: [facility] Start: 02-22-2025 End: 02-22-2025 Assay of hemosiderin, quant Rafaela Castanon REAL ESTATE TEACHER - LICENSED LOAN OFFICER ASSISTANT Work Phone: [facility] Start: 02-22-2025 End: 02-22-2025 Patient encounter procedure Rafaela Castanon REAL ESTATE TEACHER - LICENSED LOAN OFFICER ASSISTANT Work Phone: [facility] Comment on above: Routine general [facility] examination at [facility] (Primary Dx); Diabetes mellitus type 2 in obese (HCC); Encounter for diabetic foot exam (HCC); Congestive heart failure, unspecified HF chronicity, unspecified heart failure type (HCC); Cardiomyopathy, unspecified type (HCC); Atherosclerosis of coronary artery of [place] heart without angina pectoris, unspecified vessel or lesion type; Presence of stent in coronary artery; History of ST elevation myocardial infarction (STEMI); Neuropathy of both feet; Class 3 severe obesity due to excess calories with serious comorbidity and body mass index (BMI) of 40.0 to 44.9 in adult; Primary hypertension; Hyperlipidemia, unspecified hyperlipidemia type; Hypothyroidism, unspecified type; Gastroesophageal reflux disease, unspecified whether esophagitis present; Sleep apnea, unspecified type; Osteoarthritis of multiple joints, unspecified osteoarthritis type; Insomnia, unspecified type; Screening mammogram for breast cancer Routine general medi denise examination at [facility] (Primary Dx); Diabetes mellitus type 2 in obese (HCC); Encounter for diabetic foot exam (HCC); Congestive heart failure, unspecified HF chronicity, unspecified heart failure type (HCC); Cardiomyopathy, unspecified type (HCC); Atherosclerosis of coronary artery of [place] heart without angina pectoris, unspecified vessel or lesion type; Presence of stent in coronary artery; History of ST elevation myocardial infarction (STEMI); Neuropathy of both feet; Class 3 severe obesity due to excess calories with serious comorbidity and body mass index (BMI) of 40.0 to 44.9 in adult; Primary hypertension; Hyperlipidemia, unspecified hyperlipidemia type; Hypothyroidism, unspecified type; Gastroesophageal reflux disease, unspecified whether esophagitis present; Sleep apnea, unspecified type; Osteoarthritis of multiple joints, unspecified osteoarthritis type; Insomnia, unspecified type; Screening mammogram for breast cancer; Type 2 diabetes mellitus with hyperglycemia, without long-term current use of insulin ([facility]) Start: 02-22-2025 End: 02-22-2025 ambulatory RAFAELASerenity CASTANON [facility] Start: 02-22-2025 End: 02-22-2025 Encounter for general adult medical examination without abnormal findings [facility] Start: 01-24-2025 End: 01-24-2025 ambulatory Elisabeth Chanel RN [facility] Start: 01-24-2025 End: 01-24-2025 Patient encounter procedure Elisabeth Chanel RN [facility] Start: 01-23-2025 End: 02-22-2025 Telephone encounter Romulo Latif MD Work Phone: [facility] Comment on above: Med Refill Start: 01-21-2025 End: 01-23-2025 Refill Romulo Latif MD Work Phone: [facility] Comment on above: Neuropathy of both f eet Start: 12-21-2024 End: 12-21-[address] Esdras Sarabia MD -[facility] Work Phone: Start: 12-21-2024 End: 12-21-2024 ambulatory Rafaela Castanon FIELD NATURALIST-C Work Phone: [facility] Work Phone: Start: 12-05-2024 Non-patient / Non-visit Dr. Esdras hebert MD -[facility] Start: 12-05-2024 ambulatory Rafaela Castanon NP -C Work Phone: [facility] Work Phone: Start: 12-05-2024 End: 12-06-2024 ambulatory Esdras Sarabia Facility:[facility] Start: 12-05-2024 End: 12-06-2024 Evaluation and management of inpatient Dr. Esdras Sarabia MD -Progressive Care Unit Work Phone: Start: 12-05-2024 End: 12-06-2024 observation encounter Rafaela Castanon NP-C Work Phone: [facility] Work Phone: Start: 11-29-2024 End: 11-29-2024 ambulatory Rafaela Castanon NP-C Work Phone: [facility] Work Phone: Start: 11-29-2024 End: 11-29-[address] Esdras Sarabia MD -Laboratory Work Phone: Start: 11-29-2024 End: 11-29-2024 ambulatory Esdras Sarabia Facility:[facility] Start: 11-18-2024 End: 11-21-2024 ambulatory Elisabeth Chanel RN [facility] Start: 11-18-2024 End: 11-21-2024 Patient encounter procedure Elisabeth Chanel RN [facility] Start: 11-15-2024 End: 11-15-2024 Refyenni Latif MD Work Phone: [facility] Comment on above: Type 2 diabetes ashley itus with obesity (CMS/HCC) (HCC) (HCC) Start: 11-07-2024 End: 11-07-2024 Patient encounter procedure Pascale Roblero FIELD NATURALIST-C -[facility] Work Phone: Start: 11-07-2024 End: 11-07-2024 ambulatory Rafaela Castanon NP-C Work Phone: [facility] Work Phone: Start: 11-07-2024 End: 11-07-2024 ambulatory Rafaela Castanon FIELD NATURALIST Facility:[facility] Start: 10-27-2024 End: 10-28-2024 Refyenni Latif MD Work Phone: [facility] Comment on above: Congestive heart baldomero lure, unspecified HF chronicity, unspecified heart failure type (HCC); Cardiomyopathy, unspecified type (HCC); Hyperlipidemia, unspecified hyperlipidemia type Start: 10-03-2024 End: 10-03-2024 ambulatory PEPE KLINE Facility:[facility] Start: 10-03-2024 End: 10-03-2024 Patient encounter procedure Pepe Kline MD Work Phone: [facility] Comment on above: Dupuytren's disease of palm (Primary Dx) Start: 09-21-2024 End: 09-21-2024 ambulatory Rafaela Castanon FIELD NATURALIST-C Work Phone: [facility] Work Phone: Start: 09-21-2024 End: 09-21-[address] Esdras Sarabia MD -[facility] Work Phone: Start: 09-21-2024 End: 09-21-2024 ambulatory Rafaela Castanon NP Facility:[facility] Start: 08-16-2024 End: 08-16-[address] Esdras Sarabia MD -[facility] Work Phone: Start: 08-16-2024 End: 08-16-2024 ambulatory Rafaela Castanon FIELD NATURALIST Facility:[facility] Start: 06-27-2024 End: 06-27-2024 Office outpatient visit 25 minutes Rafaela Castanon REAL ESTATE TEACHER - LICENSED LOAN OFFICER ASSISTANT Work Phone: [facility] Comment on above: Diabetes mellitus ty pe 2 in obese (HCC) (Primary Dx); Class 3 severe obesity due to excess calories with serious comorbidity and body mass index (BMI) of 40.0 to 44.9 in adult (HCC); Congestive heart failure, unspecified HF chronicity, unspecified heart failure type (HCC); Cardiomyopathy, unspecified type (HCC); Atherosclerosis of coronary artery of [place] heart without angina pectoris, unspecified vessel or lesion type; Neuropathy of both feet; Hyperlipidemia, unspecified hyperlipidemia type; Primary hypertension; Hypothyroidism, unspecified type; Gastroesophageal reflux disease, unspecified whether esophagitis present; Sleep apnea, unspecified type; Osteoarthritis, unspecified osteoarthritis type, unspecified site; Arthritis of right hip; Insomnia, unspecified type; Cyst of joint of hand, right; Screening mammogram for breast cancer Start: 06-27-2024 End: 06-27-2024 ambulatory RAFAELA CASTANON [facility] Start: 06-23-2024 ambulatory Rafaela Castanon FIELD NATURALIST Facility :[facility] Start: 05-13-2024 End: 05-13-2024 Refill Romulo Latif MD Work Phone: [facility] Comment on above: Hypothyroidism, unsp ecified type Start: 04-25-2024 End: 04-25-2024 ambulatory Lorena Vasquez RN [facility] Start: 04-25-2024 End: 04-25-2024 Patient encounter procedure Lorena Vasquez RN [facility] Start: 04-18-2024 ambulatory Elsa Isaacsaminah Acuñai ty:[facility] Start: 04-18-2024 End: 04-18-2024 Telephone encounter Romulo Latif MD Work Phone: [facility] Comment on above: Med Dose Change (Car diologist placed patient on Entresto; took her off Losartan) Start: 04-05-2024 ambulatory JUDITH PENNY Facility:[facility] Start: 02-17-2024 End: 02-17-2024 Telephone encounter Romulo Latif MD Work Phone: [facility] Start: 01-08-2024 End: 01-08-2024 Patient encounter procedure Rafaela S Lg REAL ESTATE TEACHER - LICENSED LOAN OFFICER ASSISTANT Work Phone: [facility] Comment on above: Medicare annual well ness visit, subsequent (Primary Dx); Diabetes mellitus type 2 in obese ([facility]); Encounter for diabetic foot exam ([facility]); Neuropathy of both feet; Class 3 severe obesity due to excess calories with serious comorbidity and body mass index (BMI) of 40.0 to 44.9 in adult ([facility]); Atherosclerosis of coronary artery of [place] heart without angina pectoris, unspecified vessel or lesion type; Cardiomyopathy, unspecified type ([facility]); Congestive heart failure, unspecified HF chronicity, unspecified heart failure type ([facility]); Presence of stent in coronary artery; Primary hypertension; Hyperlipidemia, unspecified hyperlipidemia type; Hypothyroidism, unspecified type; Gastroesophageal reflux disease, unspecified whether esophagitis present; Sleep apnea, unspecified type; Osteoarthritis, unspecified osteoarthritis type, unspecified site; Arthritis of right hip; Insomnia, unspecified type; Screening for deficiency anemia Start: 12-02-2023 End: 12-02-2023 Office outpatient visit 25 minutes Rafaela Castanon REAL ESTATE TEACHER - LICENSED LOAN OFFICER ASSISTANT Work Phone: [facility] Comment on above: Diabetes mellitus ty pe 2 in obese (HCC) (Primary Dx); Medication side effects; Vaginal yeast infection Start: 11-30-[address] [facility] Cl inical Communication Start: 11-30-2023 Patient encounter procedure Evie Fuller [facility] Clinical Communication Start: 11-24-2023 Refill Rafaela Castanon REAL ESTATE TEACHER - LICENSED LOAN OFFICER ASSISTANT Work Phone: [facility] Comment on above: Hypothyroidism, unsp ecified type Start: 11-16-2023 Refill Romulo Latif MD Work Phone: [facility] Comment on above: Congestive heart baldomero lure, unspecified HF chronicity, unspecified heart failure type (HCC); Cardiomyopathy, unspecified type (HCC); Diabetes mellitus type 2 in obese (HCC) Neuropathy of both f eet; Hyperlipidemia, unspecified hyperlipidemia type Start: 11-05-2023 ambulatory Anette Bowen RN [facility] Clinical Communication Start: 11-05-2023 Patient encounter procedure Anette Bowen RN [facility] Clinical Communication Start: 10-27-2023 ambulatory Pricila Ramirez RN [facility] Cl inical Communication Start: 10-27-2023 Patient encounter procedure Pricila Ramirez RN [facility] Clinical Communication Start: 10-09-2023 ambulatory Leisa Huntley RN [facility] Clinical Communication Start: 10-09-2023 Patient encounter procedure Leisa Huntley RN [facility] Clinical Communication Start: 10-07-2023 ambulatory Rosa Gorman RN [facility] C linical Communication Start: 10-07-2023 Patient encounter procedure Rosa Gorman RN [facility] Clinical Communication Start: 10-06-2023 Telephone encounter Rafaela Moya REAL ESTATE TEACHER - LICENSED LOAN OFFICER ASSISTANT Work Phone: [facility] Comment on above: Results; Release of Information Start: 10-05-2023 End: 10-05-2023 Office outpatient visit 25 minutes Rafaela Castanon REAL ESTATE TEACHER - LICENSED LOAN OFFICER ASSISTANT Work Phone: [facility] Comment on above: Diabetes mellitus ty pe 2 in obese (CMS/HCC) (HCC) (HCC) (Primary Dx); Class 3 severe obesity due to excess calories with serious comorbidity and body mass index (BMI) of 40.0 to 44.9 in adult ([facility]); Congestive heart failure, unspecified HF chronicity, unspecified heart failure type ([facility]); Cardiomyopathy, unspecified type ([facility]); Atherosclerosis of coronary artery of klamath heart without angina pectoris, unspecified vessel or lesion type; Hyperlipidemia, unspecified hyperlipidemia type; Primary hypertension; Neuropathy of both feet; Need for Tdap vaccination; Need for shingles vaccine; Screening for colon cancer Start: 08-24-2023 ambulatory Rosa Gorman RN [facility] C linical Communication Start: 08-24-2023 Patient encounter procedure Rosa Gorman RN [facility] Clinical Communication Start: 08-24-2023 End: 08-24-2023 Office outpatient visit 25 minutes Rafaela Castanon REAL ESTATE TEACHER - LICENSED LOAN OFFICER ASSISTANT Work Phone: [facility] Comment on above: Dependent edema (Samantha juarez Dx); Neuropathy of both feet; Bilateral bunions Start: 08-04-2023 Refill Romulo Latif MD Work Phone: [facility] Clinical Communication Comment on above: Diabetes mellitus ty pe 2 in obese (CMS/HCC) (HCC) (HCC) Start: 08-04-2023 Refill Rafaela Castanon REAL ESTATE TEACHER - LICENSED LOAN OFFICER ASSISTANT Work Phone: [facility] Start: 06-18-2023 Telephone encounter Rafaela Moya REAL ESTATE TEACHER - LICENSED LOAN OFFICER ASSISTANT Work Phone: [facility] Comment on above: Medication Problem Start: 06-17-2023 End: 06-17-2023 Office outpatient visit 25 minutes Rafaela Castanon REAL ESTATE TEACHER - LICENSED LOAN OFFICER ASSISTANT Work Phone: [facility] Comment on above: Diabetes mellitus ty pe 2 in obese (CMS/HCC) (HCC) (Primary Dx); Class 3 severe obesity due to excess calories with serious comorbidity and body mass index (BMI) of 40.0 to 44.9 in adult (HCC); Congestive heart failure, unspecified HF chronicity, unspecified heart failure type (HCC); Cardiomyopathy, unspecified type (HCC); Atherosclerosis of coronary artery of klamath heart without angina pectoris, unspecified vessel or lesion type; Primary hypertension; Hyperlipidemia, unspecified hyperlipidemia type; Seborrheic dermatitis of scalp Start: 06-09-2023 Refill Romulo Latif MD Work Phone: [facility] Comment on above: Hypothyroidism, unsp ecified type Start: 06-01-2023 Telephone encounter Romulo Belle MD Work Phone: [facility] Comment on above: early reqeust for te st strips Start: 05-11-2023 Refill Romulo Latif MD Work Phone: [facility] Comment on above: Congestive heart baldomero lure, unspecified HF chronicity, unspecified heart failure type (HCC); Cardiomyopathy, unspecified type ([facility]); Hyperlipidemia, unspecified hyperlipidemia type; Diabetes mellitus type 2 in obese ([facility]) (HCC) Start: 05-04-2023 End: 05-04-2023 Admission to same day surgery center Dr. Romulo Latif Work Phone: [facility]-Parts Counterman/Special Procedures Work Phone: Start: 05-04-2023 End: 05-04-[address] Romulo Latif Work Phone: [facility] Work Phone: Start: 04-30-2023 End: 04-30-[address] Romulo Latif Work Phone: [facility] Work Phone: Start: 04-30-2023 End: 04-30-[address] Romulo Latif Work Phone: [facility]-Pulmonary Services/Neurology Work Phone: Start: 04-23-2023 End: 04-23-[address] Romulo Latif Work Phone: [facility] Work Phone: Start: 04-20-2023 Refill Romulo Latif MD Work Phone: [facility] Comment on above: Gastroesophageal ref lux disease, unspecified whether esophagitis present Start: 04-18-2023 End: 04-18-2023 Emergency department patient visit Dr. Romulo Latif Work Phone: [facility]-Emergency Department Work Phone: Start: 04-16-2023 Non-patient / Non-visit Dr. Nur Work Phone: [facility] Start: 04-16-2023 End: 04-16-[address] Romulo Latif Work Phone: [facility]-Cardiovascula [facility] Services Work Phone: Start: 03-27-2023 End: 03-27-[address] Romulo Latif Work Phone: [facility] Work Phone: Start: 03-18-2023 End: 03-18-2023 Office outpatient visit 25 minutes Rafaela Reynolds CNP Work Phone: [facility] Comment on above: Diabetes mellitus ty pe 2 in obese ([facility]/HCC) (HCC) (Primary Dx); Class 3 severe obesity due to excess calories with serious comorbidity and body mass index (BMI) of 40.0 to 44.9 in adult ([facility]); Congestive heart failure, unspecified HF chronicity, unspecified heart failure type ([facility]); Cardiomyopathy, unspecified type ([facility]); Primary hypertension; Hyperlipidemia, unspecified hyperlipidemia type; Need for Tdap vaccination; Need for shingles vaccine; Screening mammogram for breast cancer; Colon cancer screening Start: 02-18-2023 Orders Only Rafaela S Lg REAL ESTATE TEACHER - LICENSED LOAN OFFICER ASSISTANT Work Phone: [facility] Comment on above: Diabetes mellitus ty pe 2 in obese ([facility]/HCC) ([facility]) Start: 01-05-2023 Refill Romulo Latif MD Work Phone: [facility] Start: 12-22-2022 ambulatory Lorraine Ordaz RN [facility] Cl inical Communication Start: 12-22-2022 Patient encounter procedure Lorraine Ordaz RN [facility] Clinical Communication Start: 12-16-2022 Refill Romulo Latif MD Work Phone: [facility] Start: 11-18-2022 Orders Only Rafaela S Lg REAL ESTATE TEACHER - LICENSED LOAN OFFICER ASSISTANT Work Phone: [facility] Comment on above: Hypothyroidism, unsp ecified type (Primary Dx) Results Start: 11-17-2022 End: 11-17-2022 Patient encounter procedure Rafaela Castanon REAL ESTATE TEACHER - LICENSED LOAN OFFICER ASSISTANT Work Phone: [facility] Comment on above: Medicare annual well ness visit, subsequent (Primary Dx); Diabetes mellitus type 2 in obese ([facility]/HCC) ([facility]); Encounter for diabetic foot exam ([facility]); Congestive heart failure, unspecified HF chronicity, unspecified heart failure type ([facility]); Cardiomyopathy, unspecified type ([facility]); Class 3 severe obesity due to excess calories with serious comorbidity and body mass index (BMI) of 40.0 to 44.9 in adult ([facility]); Hyperlipidemia, unspecified hyperlipidemia type; Sleep apnea, unspecified type; Insomnia, unspecified type; Gastroesophageal reflux disease, unspecified whether esophagitis present; Osteoarthritis, unspecified osteoarthritis type, unspecified site; Hypothyroidism, unspecified type; Tinnitus of both ears Start: 10-16-2022 Orders Only Marie freire REAL ESTATE TEACHER - LICENSED LOAN OFFICER ASSISTANT Work Phone: [facility] Start: 10-16-2022 End: 10-16-2022 Office outpatient visit 25 minutes Marie Fleming REAL ESTATE TEACHER - LICENSED LOAN OFFICER ASSISTANT Work Phone: [facility] Comment on above: Viral URI with cough (Primary Dx); Nasal congestion; Seborrheic dermatitis of scalp Start: 10-15-2022 ambulatory Wali nguyen RN [facility] Clinical Communication Start: 10-15-2022 Patient encounter procedure Wali De La Fuente RN [facility] Clinical Communication Start: 10-02-2022 ambulatory Varsha Conde RN [facility] Clinical Communication Start: 10-02-2022 Patient encounter procedure Varsha Conde RN [facility] Clinical Communication Start: 09-01-2022 Telephone encounter Romulo Belle MD Work Phone: [facility] Comment on above: Letter for School/Wo rk (Letter for a paraoptometric) Start: 07-18-2022 ambulatory Shayy Lucia RN [facility] Clinical Communication Start: 07-18-2022 Patient encounter procedure Shayy Lucia RN [facility] Clinical Communication Start: 04-28-2022 ambulatory UNKNOWN PROVIDER [facility] Start: 11-01-2021 Non-patient / Non-visit FIELD NATURALIST-C Jason Castanon FIELD NATURALIST Work Phone: [facility] Start: 11-01-2021 End: 11-01-2021 Patient encounter procedure FIELD NATURALIST-Danyell Castanon FIELD NATURALIST [facility] Start: 10-21-2021 End: 10-21-2021 Patient encounter procedure ABDI Castanon FIELD NATURALIST Work Phone: [facility] Start: 08-09-2021 End: 08-09-2021 Emergency department patient visit FIELD NATURALIST-Danyell Castanon FIELD NATURALIST Work Phone: [facility] Start: 09-26-2019 End: 09-26-2019 Subsequent hospital visit by physician Rafaela Castanon Work Phone: [facility] Comment on above: Chronic pain of righ t hip Start: 04-07-2017 End: 04-08-2017 Ambulatory MARLENY MCKEON Facility:[facility] Procedures Date Procedure Procedure Detail Performing Clinician Start: 02-22-2025 Comprehensive metabo lic panel Rafaela Castanon REAL ESTATE TEACHER - LICENSED LOAN OFFICER ASSISTANT Work Phone: Start: 02-22-2025 Lipid panel Rafaela Moya REAL ESTATE TEACHER - LICENSED LOAN OFFICER ASSISTANT Work Phone: Start: 02-22-2025 End: 02-22-2025 Thyrotropin [Units/volume] in Serum or Plasma Rafaela Castanon REAL ESTATE TEACHER - LICENSED LOAN OFFICER ASSISTANT Work Phone: Start: 02-22-2025 Urine albumin quantitative Rafaela Castanon REAL ESTATE TEACHER - LICENSED LOAN OFFICER ASSISTANT Work Phone: Start: 02-22-2025 Adult depression scr eening assessment Rafaela Castanon REAL ESTATE TEACHER - LICENSED LOAN OFFICER ASSISTANT Work Phone: Start: 02-22-2025 Lipid 1996 panel - S gamaliel or Plasma Rafaela Castanon REAL ESTATE TEACHER - LICENSED LOAN OFFICER ASSISTANT Work Phone: Start: 12-06-2024 Estimated creatinine clearance Rafaela Castanon FIELD NATURALIST-C Work Phone: Start: 12-05-2024 Coagulation time, activated Rafaela Castanon FIELD NATURALIST-C Work Phone: Start: 11-29-2024 X-ray of chest, PA a nd lateral views Rafaela Castanon FIELD NATURALIST-C Work Phone: Start: 11-07-2024 Evaluation of diagno stic study results Rafaela Castanon FIELD NATURALIST-C Work Phone: Start: 09-21-2024 CT of chest without contrast Rafaela Castanon FIELD NATURALIST-C Work Phone: Start: 06-30-2024 Colonoscopy Romulo bradley MD Work Phone: Start: 01-08-2024 Adult depression scr eening assessment Rafaela Castanon REAL ESTATE TEACHER - LICENSED LOAN OFFICER ASSISTANT Work Phone: Start: 01-08-2024 Lipid 1996 panel - S gamaliel or Plasma Romulo Latif MD Work Phone: Start: 01-08-2024 Thyrotropin [Units/v olume] in Serum or Plasma Romulo Latif MD Work Phone: Start: 06-17-2023 Hemoglobin glycosylated a1c Rafaela Danielson Lg REAL ESTATE TEACHER - LICENSED LOAN OFFICER ASSISTANT Work Phone: Start: 04-18-2023 Plain chest X-ray Dr. Tone Latif Work Phone: Start: 04-16-2023 Cardiovascular stres s test using pharmacologic stress agent Dr. Romulo Latif Work Phone: Start: 11-17-2022 Comprehensive metabo lic panel Rafaela Castanon REAL ESTATE TEACHER - LICENSED LOAN OFFICER ASSISTANT Work Phone: Start: 11-17-2022 Lipid panel Rafaela Coello ember REAL ESTATE TEACHER - LICENSED LOAN OFFICER ASSISTANT Work Phone: Start: 11-17-2022 Urine albumin quantitative Rafaela Castanon REAL ESTATE TEACHER - LICENSED LOAN OFFICER ASSISTANT Work Phone: Start: 11-17-2022 Adult depression scr eening assessment Rafaela Lg REAL ESTATE TEACHER - LICENSED LOAN OFFICER ASSISTANT Work Phone: Start: 11-17-2022 Lipid 1996 panel - S gamaliel or Plasma Rafaela Castanon REAL ESTATE TEACHER - LICENSED LOAN OFFICER ASSISTANT Work Phone: Start: 11-17-2022 End: 11-17-2022 Thyrotropin [Units/volume] in Serum or Plasma Rafaela Castanon REAL ESTATE TEACHER - LICENSED LOAN OFFICER ASSISTANT Work Phone: Start: 10-16-2022 ALLERGEN, REGION 5 RESPIRATORY PANEL Mariealessandra Fleming REAL ESTATE TEACHER - LICENSED LOAN OFFICER ASSISTANT Work Phone: Start: 04-23-2022 Mammography Wali De La Fuente RN Start: 11-15-2021 Lipid 1996 panel - S gamaliel or Plasma Shayy Lucia RN Start: 11-15-2021 Thyrotropin [Units/v olume] in Serum or Plasma Shayy Lucia RN Start: 11-01-2021 Cardiovascular stres s test using pharmacologic stress agent FIELD NATURALIST-C Rafaela Castanon FIELD NATURALIST Work Phone: Start: 09-26-2019 Radex hip unilateral with pelvis 2-3 views Rafaela Castanon Work Phone: Plan of Treatment Date Care Activity Detail Author Start: 06-30-2034 Screening for malignant neoplasm of colon [facility] Start: 10-05-2033 DTaP/Tdap/Td Vaccines (2 - Td or Tdap) DTaP/Tdap/Td Vaccines (2 - Td or Tdap) [facility] Start: 10-05-2033 Urine microalbumin profile DTaP,Tdap,Td Vaccine (2 - Td or Tdap) [facility] Start: 11-15-2026 Pneumococcal Vaccine: 50+ (3 of 3 - PCV20 or PCV21) Pneumococcal Vaccine: 50+ (3 of 3 - PCV20 or PCV21) [facility] Start: 11-15-2026 Pneumococcal Vaccine: 50+ Years (3 of 3 - PCV20 or PCV21) Pneumococcal Vaccine: 50+ Years (3 of 3 - PCV20 or PCV21) [facility] Start: 02-22-2026 Creatinine measurement Creatinine Level [facility] Start: 02-22-2026 Depression Screening Depression Screening [facility] Start: 02-22-2026 Diabetes: Estimated Glomerular Filtration Rate for Kidney [facility] Diabetes: Estimated Glomerular Filtration Rate for [facility]ney [facility] Start: 02-22-2026 Diabetes: Urine Albumin-Creatinine Ratio for Kidney [facility] Diabetes: Urine Albumin-Creatinine Ratio for [facility] Start: 02-22-2026 Hemoglobin A1c measurement Diabetes: Hemoglobin A1C [facility] Start: 02-22-2026 Lipid panel Lipid Panel [facility] Start: 02-22-2026 Potassium measurement Potassium Level [facility] Start: 02-22-2026 Thyroid stimulating hormone measurement TSH Level [facility] Start: 11-07-2025 Creatinine measurement Creatinine Level [facility] Start: 11-07-2025 Potassium measurement Potassium Level [facility] Start: 06-27-2025 Creatinine measurement Creatinine Level [facility] Start: 06-27-2025 Diabetes: Estimated Glomerular Filtration Rate for Kidney [facility] Diabetes: Estimated Glomerular Filtration Rate for Kidney [facility] Start: 06-27-2025 Hemoglobin A1c measurement Diabetes: Hemoglobin A1C [facility] Start: 06-27-2025 Hepatitis C screening Hepatitis C Screening [facility] Comment on above: Postponed from 1978 (Patient Refus ed) Start: 06-27-2025 Potassium measurement Potassium Level [facility] Start: 05-24-2025 End: 05-24-2025 Patient encounter procedure 05/24/2025 11:20 AM EST Office Visit [facility] [address] [place] [address] Rafaela Castanon APRN - LICENSED LOAN OFFICER ASSISTANT [address] [place] [address] [facility] Start: 04-05-2025 Echocardiography Echocardiogram [facility] Start: 2025 Pneumococcal Vaccine: Pediatrics (0 to 5 Years) and At-Risk Patients (6 to 64 Years) (3 - PPSV23 if available, else PCV20) Pneumococcal Vaccine: Pediatrics (0 to 5 Years) and At-Risk Patients (6 to 64 Years) (3 - PPSV23 if available, else PCV20) [facility] Start: 2025 Pneumococcal Vaccine: Pediatrics (0 to 5 Years) and At-Risk Patients (6 to 64 Years) (3 - PPSV23 or PCV20) Pneumococcal Vaccine: Pediatrics (0 to 5 Years) and At-Risk Patients (6 to 64 Years) (3 - PPSV23 or PCV20) [facility] Start: 2025 Pneumococcal Vaccine: Pediatrics (0 to 5 Years) and At-Risk Patients (6 to 64 Years) (3 of 3 - PPSV23 or PCV20) Pneumococcal Vaccine: Pediatrics (0 to 5 Years) and At-Risk Patients (6 to 64 Years) (3 of 3 - PPSV23 or PCV20) [facility] Start: 03-20-2025 Influenza vaccination Influenza Vaccine (#1) [facility] Start: 02-22-2025 End: 02-21-2026 Comprehensive metabolic 1998 panel - Serum or Plasma Comprehensive metabolic panel Lab Routine Diabetes mellitus type 2 in obese (HCC) Congestive heart failure, unspecified HF chronicity, unspecified heart failure type (HCC) Cardiomyopathy, unspecified type (HCC) Atherosclerosis of coronary artery of k[place] heart without angina pectoris, unspecified vessel or lesion type Presence of stent in coronary artery Neuropathy of both feet Class 3 severe obesity due to excess calories with serious comorbidity and body mass index (BMI) of 40.0 to 44.9 in adult Primary hypertension Hyperlipidemia, unspecified hyperlipidemia type Hypothyroidism, unspecified type Gastroesophageal reflux disease, unspecified whether esophagitis present Sleep apnea, unspecified type Osteoarthritis of multiple joints, unspecified osteoarthritis type Insomnia, unspecified type Expected: 02/22/2025 (Approximate), Expires: 02/21/2026 [facility] [employer] Comment on above: Expected: 02/22/2025 (Approximate), Expi res: 02/21/2026 Start: 02-22-2025 End: 04-24-2026 DBT Breast - bilateral screening Bilateral screening mammogram with tomosynthesis Imaging Routine Screening mammogram for breast cancer Expected: 02/22/2025, Expires: 04/24/2026 [facility] [employer] Comment on above: Expected: 02/22/2025, Expires: Start: 02-22-2025 End: 02-21-2026 Hemoglobin A1c measurement Hemoglobin A1c Lab Routine Diabetes mellitus type 2 in obese (HCC) Expected: 02/22/2025 (Approximate), Expires: 02/21/2026 [facility] [employer] Comment on above: Expected: 02/22/2025 (Approximate), Expi res: 02/21/2026 Start: 02-22-2025 End: 02-21-2026 Lipid 1996 panel - Serum or Plasma Lipid panel Lab Routine Diabetes mellitus type 2 in obese (HCC) Congestive heart failure, unspecified HF chronicity, unspecified heart failure type (HCC) Atherosclerosis of coronary artery of k[place] heart without angina pectoris, unspecified vessel or lesion type Presence of stent in coronary artery History of ST elevation myocardial infarction (STEMI) Hyperlipidemia, unspecified hyperlipidemia type Expected: 02/22/2025 (Approximate), Expires: 02/21/2026 [facility] [employer] Comment on above: Expected: 02/22/2025 (Approximate), Expi res: 02/21/2026 Start: 02-22-2025 End: 02-21-2026 Microalbumin/Creatinine panel in random Urine Microalbumin / creatinine urine ratio Lab Routine Diabetes mellitus type 2 in obese (HCC) Expected: 02/22/2025 (Approximate), Expires: 02/21/2026 [facility] [employer] [facility] Work Phone: Comment on above: Expected: 02/22/2025 (Approximate), Expi res: 02/21/2026 Start: 02-22-2025 End: 02-21-2026 Thyrotropin [Units/volume] in Serum or Plasma TSH Lab Routine Hypothyroidism, unspecified type Expected: 02/22/2025 (Approximate), Expires: 02/21/2026 [facility] Comment on above: Expected: 02/22/2025 (Approximate), Expi res: 02/21/2026 Start: 02-22-2025 End: 02-22-2025 Patient encounter procedure 02/22/2025 1:00 PM EDT Office Visit [facility] [address] [place] [address] Rafaela Castanon, REAL ESTATE TEACHER - LICENSED LOAN OFFICER ASSISTANT [address] [facility] [place] [address] [facility] Start: 01-11-2025 End: 01-11-2025 Patient encounter procedure 01/11/2025 9:00 AM EDT Office Visit [facility] [address] [place] [address] Rafaela Castanon, REAL ESTATE TEACHER - LICENSED LOAN OFFICER ASSISTANT [address] [place] [address] [facility] Start: 01-07-2025 Creatinine measurement Creatinine Level [facility] Start: 01-07-2025 Depression Screening Depression Screening [facility] Start: 01-07-2025 Diabetes: Estimated Glomerular Filtration Rate for Kidney Health Diabetes: Estimated Glomerular Filtration Rate for [facility]ney [facility] Start: 01-07-2025 Diabetes: Urine Albumin-Creatinine Ratio for Kidney Health Diabetes: Urine Albumin-Creatinine Ratio for [facility]ney [facility] Start: 01-07-2025 Diabetic foot examination Diabetes: Foot Exam [facility] Start: 01-07-2025 Hemoglobin A1c measurement Diabetes: Hemoglobin A1C [facility] Start: 01-07-2025 Hepatitis B screening Urine Albumin:Creatinine Ratio [facility] Start: 01-07-2025 Hepatitis B surface antibody level LDL Cholesterol [facility] Start: 01-07-2025 Lipid panel Lipid Panel [facility] Start: 01-07-2025 Potassium measurement Potassium Level [facility] Start: 01-07-2025 Thyroid stimulating hormone measurement TSH Level [facility] Start: 12-26-2024 Hemoglobin A1c measurement HbA1C [facility] Start: 12-18-2024 Glaucoma screening Diabetes: Retinopathy Screening [facility] Start: 12-06-2024 Electrocardiographic procedure [facility] Start: 12-06-2024 Patient discharge [facility] Start: 12-06-2024 Complete blood count [facility] Start: 12-05-2024 Iv infusion hydration initial 31 min-1 hour HYDRATION IV INFUSION INIT [facility] [facility] Start: 12-05-2024 Patient referral [employer] Work Phone: Start: 12-05-2024 End: 12-05-2024 Following clinical pathway protocol [facility] Start: 12-05-2024 Admission procedure [facility] Start: 12-05-2024 End: 12-05-2024 [facility] Start: 12-05-2024 Ambulation without limitation [facility] Start: 12-05-2024 Pulse taking [facility] Start: 12-05-2024 Cardiac monitoring [facility] Start: 12-05-2024 Cardiac rehabilitation - phase 1 [facility] Start: 12-05-2024 Cardiac rehabilitation - phase 2 [facility] Start: 12-05-2024 Notification of physician [facility] Start: 12-05-2024 Oxygen therapy [facility] Start: 12-05-2024 Patient discharge [facility] Start: 12-05-[address] vital signs [facility] Start: 12-05-2024 Vascular disease risk assessment [facility] Start: 12-05-2024 Vital signs measurements [facility] Start: 10-04-2024 Creatinine measurement Creatinine Level [facility] Start: 10-04-2024 Diabetes: Estimated Glomerular Filtration Rate for Kidney Health Diabetes: Estimated Glomerular Filtration Rate for Kidney Health [facility] Start: 10-04-2024 Hemoglobin A1c measurement Diabetes: Hemoglobin A1C [facility] Start: 10-04-2024 Potassium measurement Potassium Level [facility] Start: 07-20-2024 Medicare Advantage Annual Wellness Visit Medicare Advantage Annual Wellness Visit [facility] Start: 06-27-2024 End: 06-27-2025 Basic metabolic 1998 panel - Serum or Plasma Basic metabolic panel Lab Routine Diabetes mellitus type 2 in obese (HCC) Class 3 severe obesity due to excess calories with serious comorbidity and body mass index (BMI) of 40.0 to 44.9 in adult (HCC) Congestive heart failure, unspecified HF chronicity, unspecified heart failure type (HCC) Cardiomyopathy, unspecified type (HCC) Atherosclerosis of coronary artery of klamath heart without angina pectoris, unspecified vessel or lesion type Neuropathy of both feet Hyperlipidemia, unspecified hyperlipidemia type Primary hypertension Hypothyroidism, unspecified type Gastroesophageal reflux disease, unspecified whether esophagitis present Sleep apnea, unspecified type Osteoarthritis, unspecified osteoarthritis type, unspecified site Arthritis of right hip Insomnia, unspecified type Expected: 06/27/2024 (Approximate), Expires: 06/27/2025 [facility] Comment on above: Expected: 06/27/2024 (Approximate), Expi res: 06/27/2025 Start: 06-27-2024 End: 08-28-2025 DBT Breast - bilateral screening Bilateral screening mammogram with tomosynthesis Imaging Routine Screening mammogram for breast cancer Expected: 06/27/2024, Expires: 08/28/2025 [facility] Comment on above: Expected: 06/27/2024, Expires: Start: 06-27-2024 End: 06-27-2025 Hemoglobin A1c measurement Hemoglobin A1c Lab Routine Diabetes mellitus type 2 in obese (HCC) Expected: 06/27/2024 (Approximate), Expires: 06/27/2025 [facility] Work Phone: Comment on above: Expected: 06/27/2024 (Approximate), Expi res: 06/27/2025 Start: 06-23-2024 Preventive dental service Diabetes: Dental Exam [facility] Start: 06-17-2024 Hemoglobin A1c measurement Diabetes: Hemoglobin A1C [facility] Start: 06-16-2024 DTaP/Tdap/Td Vaccines (1 - Tdap) DTaP/Tdap/Td Vaccines (1 - Tdap) [facility] Comment on above: Postponed from 1979 (Patient Refus ed) Start: 06-16-2024 Hepatitis C screening Hepatitis C Screening [facility] Comment on above: Postponed from 1978 (Patient Refus ed) Start: 06-16-2024 HIV screening HIV Screening [facility] Comment on above: Postponed from 1960 (Patient Refus ed) Start: 06-16-2024 Zoster Vaccines (1 of 2) Zoster Vaccines (1 of 2) [facility] Comment on above: Postponed from 2010 (Patient Refus ed) Start: 05-25-2024 End: 05-25-2024 Patient encounter procedure 05/25/2024 11:20 AM EST Office Visit [facility] [address] [place] [address] [place] [address] Rafaela Castanon, REAL ESTATE TEACHER - LICENSED LOAN OFFICER ASSISTANT [address] [place] [address] [facility] Start: 04-26-2024 End: 04-26-2024 Patient encounter procedure 04/26/2024 1:00 PM EDT Office Visit [facility] [address] [place] [address] [place] [address] Marie Fleming, REAL ESTATE TEACHER - LICENSED LOAN OFFICER ASSISTANT [address] [place] [address] [facility] Start: 04-08-2024 End: 04-08-2024 Patient encounter procedure 04/08/2024 10:40 AM EDT Office Visit [facility] [address] [place] [address] Rafaela Castanon, REAL ESTATE TEACHER - LICENSED LOAN OFFICER ASSISTANT [address] [place] [address] [facility] Start: 03-27-2024 Echocardiography Echocardiogram [facility] Start: 03-20-2024 Influenza vaccination Influenza Vaccine (#1) [facility] Start: 03-18-2024 Creatinine measurement Creatinine Level [facility] Start: 03-18-2024 Hemoglobin A1c measurement Diabetes: Hemoglobin A1C [facility] Start: 03-18-2024 Potassium measurement Potassium Level [facility] Start: 01-08-2024 End: 01-07-2025 CBC panel - Blood by Automated count CBC Lab Routine Diabetes mellitus type 2 in obese (HCC) Neuropathy of both feet Class 3 severe obesity due to excess calories with serious comorbidity and body mass index (BMI) of 40.0 to 44.9 in adult (HCC) Atherosclerosis of coronary artery of k[place] heart without angina pectoris, unspecified vessel or lesion type Cardiomyopathy, unspecified type (HCC) Congestive heart failure, unspecified HF chronicity, unspecified heart failure type (HCC) Presence of stent in coronary artery Primary hypertension Hyperlipidemia, unspecified hyperlipidemia type Hypothyroidism, unspecified type Gastroesophageal reflux disease, unspecified whether esophagitis present Sleep apnea, unspecified type Osteoarthritis, unspecified osteoarthritis type, unspecified site Arthritis of right hip Insomnia, unspecified type Screening for deficiency anemia Expected: 01/08/2024 (Approximate), Expires: 01/07/2025 [facility] [employer] [facility] Work Phone: Comment on above: Expected: 01/08/2024 (Approximate), Expi res: 01/07/2025 Start: 01-08-2024 End: 01-07-2025 Comprehensive metabolic 1998 panel - Serum or Plasma Comprehensive metabolic panel Lab Routine Diabetes mellitus type 2 in obese (HCC) Neuropathy of both feet Class 3 severe obesity due to excess calories with serious comorbidity and body mass index (BMI) of 40.0 to 44.9 in adult (HCC) Atherosclerosis of coronary artery of [place] heart without angina pectoris, unspecified vessel or lesion type Cardiomyopathy, unspecified type (HCC) Congestive heart failure, unspecified HF chronicity, unspecified heart failure type (HCC) Presence of stent in coronary artery Primary hypertension Hyperlipidemia, unspecified hyperlipidemia type Hypothyroidism, unspecified type Gastroesophageal reflux disease, unspecified whether esophagitis present Sleep apnea, unspecified type Osteoarthritis, unspecified osteoarthritis type, unspecified site Arthritis of right hip Insomnia, unspecified type Expected: 01/08/2024 (Approximate), Expires: 01/07/2025 [facility] [employer] Comment on above: Expected: 01/08/2024 (Approximate), Expi res: 01/07/2025 Start: 01-08-2024 End: 01-07-2025 Hemoglobin A1c measurement Hemoglobin A1c Lab Routine Diabetes mellitus type 2 in obese (HCC) Expected: 01/08/2024 (Approximate), Expires: 01/07/2025 [facility] Comment on above: Expected: 01/08/2024 (Approximate), Expi res: 01/07/2025 Start: 01-08-2024 End: 01-07-2025 Lipid 1996 panel - Serum or Plasma Lipid panel Lab Routine Atherosclerosis of coronary artery of k[place] heart without angina pectoris, unspecified vessel or lesion type Cardiomyopathy, unspecified type (HCC) Congestive heart failure, unspecified HF chronicity, unspecified heart failure type (HCC) Presence of stent in coronary artery Hyperlipidemia, unspecified hyperlipidemia type Expected: 01/08/2024 (Approximate), Expires: 01/07/2025 [facility] [employer] Comment on above: Expected: 01/08/2024 (Approximate), Expi res: 01/07/2025 Start: 01-08-2024 End: 01-07-2025 Microalbumin/Creatinine panel in random Urine Microalbumin / creatinine urine ratio Lab Routine Diabetes mellitus type 2 in obese (HCC) Expected: 01/08/2024 (Approximate), Expires: 01/07/2025 [facility] [employer] Comment on above: Expected: 01/08/2024 (Approximate), Expi res: 01/07/2025 Start: 01-08-2024 End: 01-07-2025 Thyrotropin [Units/volume] in Serum or Plasma TSH Lab Routine Hypothyroidism, unspecified type Expected: 01/08/2024 (Approximate), Expires: 01/07/2025 [facility] [employer] Comment on above: Expected: 01/08/2024 (Approximate), Expi res: 01/07/2025 Start: 01-08-2024 End: 01-08-2024 Patient encounter procedure 01/08/2024 9:40 AM EDT Office Visit [facility] [address] [place] [address] Rafaela Castanon, REAL ESTATE TEACHER - LICENSED LOAN OFFICER ASSISTANT [address] [place] [address] [facility] Start: 12-19-2023 Glaucoma screening Diabetes: Retinopathy Screening [facility] Start: 12-18-2023 Medicare Advantage Annual Wellness Visit (AWV) Medicare Advantage Annual Wellness Visit (AWV) [facility] Start: 12-02-2023 End: 12-02-2023 Patient encounter procedure 12/02/2023 2:40 PM EDT Office Visit [facility] [address] [place] [address] Rafaela Castanon, REAL ESTATE TEACHER - LICENSED LOAN OFFICER ASSISTANT [address] [place] [address] [facility] Start: 12-01-2023 Zoster Vaccines (2 of 2) Zoster Vaccines (2 of 2) [facility] Start: 11-18-2023 Creatinine measurement Creatinine Level [facility] Start: 11-18-2023 Depression Screening Depression Screening [facility] Start: 11-18-2023 Diabetes: Urine Albumin-Creatinine Ratio for Kidney Health Diabetes: Urine Albumin-Creatinine Ratio for Kidney Health [facility] Start: 11-18-2023 Diabetic foot examination Diabetes: Foot Exam [facility] Start: 11-18-2023 Hemoglobin A1c measurement Diabetes: Hemoglobin A1C [facility] Start: 11-18-2023 Lipid panel Lipid Panel [facility] Start: 11-18-2023 Potassium measurement Potassium Level [facility] Start: 11-18-2023 Thyroid stimulating hormone measurement TSH Level [facility] Start: 11-18-2023 Urine screening for protein Diabetes: Urine Protein Screening [facility] Start: 11-04-2023 Screening for malignant neoplasm of colon [facility] Start: 10-11-2023 Screening for malignant neoplasm of colon [facility] Start: 10-05-2023 End: 09-30-2024 Basic metabolic 1998 panel - Serum or Plasma Basic metabolic panel Lab Routine Diabetes mellitus type 2 in obese (CMS/HCC) (HCC) (HCC) Class 3 severe obesity due to excess calories with serious comorbidity and body mass index (BMI) of 40.0 to 44.9 in adult (HCC) Congestive heart failure, unspecified HF chronicity, unspecified heart failure type (HCC) Cardiomyopathy, unspecified type (HCC) Atherosclerosis of coronary artery of k[place] heart without angina pectoris, unspecified vessel or lesion type Primary hypertension Expected: 10/05/2023 (Approximate), Expires: 09/30/2024 [facility] Comment on above: Expected: 10/05/2023 (Approximate), Expi res: 09/30/2024 Start: 10-05-2023 End: 09-30-2024 Hemoglobin A1c measurement Hemoglobin A1c Lab Routine Diabetes mellitus type 2 in obese (CMS/HCC) (HCC) (HCC) Expected: 10/05/2023 (Approximate), Expires: 09/30/2024 [facility] Work Phone: Comment on above: Expected: 10/05/2023 (Approximate), Expi res: 09/30/2024 Start: 09-25-2023 Screening for malignant neoplasm of colon [facility] Start: 09-21-2023 End: 09-21-2023 Patient encounter procedure 09/21/2023 1:00 PM EST Office Visit [facility] [address], [place] [id number] Rafaela Castanon, REAL ESTATE TEACHER - LICENSED LOAN OFFICER ASSISTANT [address] [place] [address] [facility] Start: 07-20-2023 Medicare Advantage Annual Wellness Visit Medicare Advantage Annual Wellness Visit [facility] Start: 06-17-2023 End: 06-17-2023 Patient encounter procedure [facility] Start: 06-09-2023 Creatinine measurement Creatinine Level [facility] Start: 06-09-2023 DTaP/Tdap/Td Vaccines (1 - Tdap) DTaP/Tdap/Td Vaccines (1 - Tdap) [facility] Comment on above: Postponed from 1979 (Patient Refus ed) Start: 06-09-2023 Hepatitis B Vaccines (1 of 3 - 3-dose series) Hepatitis B Vaccines (1 of 3 - 3-dose series) [facility] Comment on above: Postponed from 1960 (Patient Refus ed) Start: 06-09-2023 Hepatitis B Vaccines (1 of 3 - Risk 3-dose series) Hepatitis B Vaccines (1 of 3 - Risk 3-dose series) [facility] Comment on above: Postponed from 2020 (Patient Refus ed) Start: 06-09-2023 Hepatitis C screening Hepatitis C Screening [facility] Comment on above: Postponed from 1978 (Patient Refus ed) Start: 06-09-2023 HIV screening HIV Screening [facility] Comment on above: Postponed from 1960 (Patient Refus ed) Start: 06-09-2023 Potassium measurement Potassium Level [facility] Start: 06-09-2023 Preventive dental service Diabetes: Dental Exam [facility] Comment on above: Postponed from 1970 (Patient Refus ed) Start: 06-09-2023 Zoster Vaccines (1 of 2) Zoster Vaccines (1 of 2) [facility] Comment on above: Postponed from 2010 (Patient Refus ed) Start: 05-04-2023 Patient discharge [facility] Start: 05-04-2023 Electrocardiographic procedure [facility] Start: 05-04-2023 Ambulation without limitation [facility] Start: 05-04-2023 Cardiac monitoring [facility] Start: 05-04-2023 Cardiac rehabilitation - phase 1 [facility] Start: 05-04-2023 Cardiac rehabilitation - phase 2 [facility] Start: 05-04-2023 Notification of physician [facility] Start: 05-04-2023 Oxygen therapy [facility] Start: 05-04-2023 Patient discharge [facility] Start: 05-04-[address] [facility] Start: 05-04-2023 Vascular disease risk assessment [facility] Start: 05-04-2023 Vital signs measurements [facility] Start: 05-04-2023 End: 05-04-2023 [facility] Start: 05-04-2023 Admission procedure [facility] Start: 04-24-2023 End: 05-18-2024 MG Breast - bilateral Screening Bilateral screening mammogram Imaging Routine Screening mammogram for breast cancer Expected: 04/24/2023, Expires: 05/18/2024 [facility] Comment on above: Expected: 04/24/2023, Expires: Start: 04-23-2023 Screening for malignant neoplasm of breast Mammogram [facility] Start: 04-18-2023 [facility] Start: 03-20-2023 COVID-19 Vaccine () COVID-19 Vaccine () [facility] Start: 03-20-2023 Influenza vaccination Influenza Vaccine (#1) [facility] Start: 03-18-2023 End: 03-18-2024 Basic metabolic 1998 panel - Serum or Plasma Basic metabolic panel Lab Routine Diabetes mellitus type 2 in obese ([facility]) ([facility]) Class 3 severe obesity due to excess calories with serious comorbidity and body mass index (BMI) of 40.0 to 44.9 in adult (HCC) Congestive heart failure, unspecified HF chronicity, unspecified heart failure type (HCC) Cardiomyopathy, unspecified type ([facility]) Primary hypertension Hyperlipidemia, unspecified hyperlipidemia type Expected: 03/18/2023 (Approximate), Expires: 03/18/2024 [facility] Work Phone: Comment on above: Expected: 03/18/2023 (Approximate), Expi res: 03/18/2024 Start: 03-18-2023 End: 03-18-2024 Hemoglobin A1c/Hemoglobin.total in Blood Hemoglobin A1c Lab Routine Diabetes mellitus type 2 in obese ([facility]) ([facility]) Expected: 03/18/2023 (Approximate), Expires: 03/18/2024 [facility] Comment on above: Expected: 03/18/2023 (Approximate), Expi res: 03/18/2024 Start: 03-18-2023 End: 03-18-2023 Patient encounter procedure 03/18/2023 1:00 PM EDT Office Visit [facility] [address] [place] [address] Rafaela Castanon, REAL ESTATE TEACHER - LICENSED LOAN OFFICER ASSISTANT [address] [place] [address] [facility] Start: 02-18-2023 End: 02-18-2023 Patient encounter procedure [facility] Start: 02-17-2023 Hemoglobin A1c measurement Diabetes: Hemoglobin A1C [facility] Start: 12-24-2022 End: 12-24-2022 Patient encounter procedure 12/24/2022 Office Visit Family [facility] Rafaela Castanon, REAL ESTATE TEACHER - LICENSED LOAN OFFICER ASSISTANT [address] [place] [address] [facility] Start: 11-17-2022 End: 11-18-2023 CBC panel - Blood by Automated count CBC Lab Routine Diabetes mellitus type 2 in obese ([facility]) (HCC) Sleep apnea, unspecified type Insomnia, unspecified type Congestive heart failure, unspecified HF chronicity, unspecified heart failure type (HCC) Cardiomyopathy, unspecified type (HCC) Gastroesophageal reflux disease, unspecified whether esophagitis present Osteoarthritis, unspecified osteoarthritis type, unspecified site Hypothyroidism, unspecified type Class 3 severe obesity due to excess calories with serious comorbidity and body mass index (BMI) of 40.0 to 44.9 in adult (HCC) Hyperlipidemia, unspecified hyperlipidemia type Expected: 11/17/2022 (Approximate), Expires: 11/18/2023 [facility] [employer] [facility] Work Phone: Comment on above: Expected: 11/17/2022 (Approximate), Expi res: 11/18/2023 Start: 11-17-2022 End: 11-18-2023 Comprehensive metabolic 1998 panel - Serum or Plasma Comprehensive metabolic panel Lab Routine Diabetes mellitus type 2 in obese ([facility]) (HCC) Sleep apnea, unspecified type Insomnia, unspecified type Congestive heart failure, unspecified HF chronicity, unspecified heart failure type (HCC) Cardiomyopathy, unspecified type (HCC) Gastroesophageal reflux disease, unspecified whether esophagitis present Osteoarthritis, unspecified osteoarthritis type, unspecified site Hypothyroidism, unspecified type Class 3 severe obesity due to excess calories with serious comorbidity and body mass index (BMI) of 40.0 to 44.9 in adult (HCC) Hyperlipidemia, unspecified hyperlipidemia type Expected: 11/17/2022 (Approximate), Expires: 11/18/2023 [facility] [employer] Comment on above: Expected: 11/17/2022 (Approximate), Expi res: 11/18/2023 Start: 11-17-2022 End: 11-18-2023 Hemoglobin A1c/Hemoglobin.total in Blood Hemoglobin A1c Lab Routine Diabetes mellitus type 2 in obese ([facility]/HCC) (HCC) Expected: 11/17/2022 (Approximate), Expires: 11/18/2023 [facility] [employer] Comment on above: Expected: 11/17/2022 (Approximate), Expi res: 11/18/2023 Start: 11-17-2022 End: 11-18-2023 Lipid 1996 panel - Serum or Plasma Lipid panel Lab Routine Hyperlipidemia, unspecified hyperlipidemia type Expected: 11/17/2022 (Approximate), Expires: 11/18/2023 [facility] Comment on above: Expected: 11/17/2022 (Approximate), Expi res: 11/18/2023 Start: 11-17-2022 End: 11-18-2023 Microalbumin/Creatinine panel in random Urine Microalbumin / creatinine urine ratio Lab Routine Diabetes mellitus type 2 in obese (CMS/HCC) (HCC) Expected: 11/17/2022 (Approximate), Expires: 11/18/2023 [facility] Comment on above: Expected: 11/17/2022 (Approximate), Expi res: 11/18/2023 Start: 11-17-2022 End: 11-18-2023 Thyrotropin [Units/volume] in Serum or Plasma TSH Lab Routine Hypothyroidism, unspecified type Expected: 11/17/2022 (Approximate), Expires: 11/18/2023 [facility] Comment on above: Expected: 11/17/2022 (Approximate), Expi res: 11/18/2023 Start: 11-17-2022 End: 11-17-2022 Patient encounter procedure 11/17/2022 Office Visit Family Medicine Raafela Castanon, REAL ESTATE TEACHER - LICENSED LOAN OFFICER ASSISTANT [address] [place] [address] [facility] Start: 11-15-2022 Diabetic foot examination Diabetes: Foot Exam [facility] Comment on above: Postponed from 1970 (Other Medical Reasons) Start: 11-15-2022 Lipid panel Lipid Panel [facility] Start: 11-15-2022 Thyroid stimulating hormone measurement TSH Level [facility] Start: 11-15-2022 Urine screening for protein Diabetes: Urine Protein Screening [facility] Start: 10-16-2022 End: 10-17-2023 ALLERGEN, REGION 5 RESPIRATORY PANEL ALLERGEN, REGION 5 RESPIRATORY PANEL Lab Routine Nasal congestion Expected: 10/16/2022 (Approximate), Expires: 10/17/2023 [facility] [employer] [facility] Work Phone: Comment on above: Expected: 10/16/2022 (Approximate), Expi res: 10/17/2023 Start: 10-16-2022 End: 10-16-2022 Patient encounter procedure 10/16/2022 Office Visit Family Medicine Marie Fleming, REAL ESTATE TEACHER - LICENSED LOAN OFFICER ASSISTANT [address] [place] [address] [facility] Start: 09-09-2022 Hemoglobin A1c measurement Diabetes: Hemoglobin A1C [facility] Start: 09-29-2021 Screening for malignant neoplasm of colon [facility] Start: 09-07-2020 [object Object] Diabetic foot exam [place], [place] Start: 09-07-2020 A1C test (Diabetic or Prediabetic) A1C test (Diabetic or Prediabetic) [place] Start: 09-07-2020 Creatinine monitoring Creatinine monitoring [place], [place] Start: 09-07-2020 Hepatitis B vaccine (1 of 3 - Risk 3-dose series) Hepatitis B vaccine (1 of 3 - Risk 3-dose series) [place] Comment on above: Postponed from 1979 (Patient Refus ed) Start: 09-07-2020 Potassium monitoring Potassium monitoring [place] Start: 07-03-2020 Colon cancer screen fecal DNA test (Cologuard) Colon cancer screen fecal DNA test (Cologuard) [place], [place] Start: 2020 RSV Immunization aged 60 or older (1 - 1-dose 60+ series) RSV Immunization aged 60 or older (1 - 1-dose 60+ series) [facility] Start: 03-09-2020 Annual Wellness Visit (AWV) Annual Wellness Visit (AWV) [place], [place] Start: 03-09-2020 Diabetic microalbuminuria test Diabetic microalbuminuria test [place] Start: 03-09-2020 Lipid screen Lipid screen [place] Start: 03-09-2020 TSH testing TSH testing [place], [place] Start: 02-27-2020 Diabetic retinal exam Diabetic retinal exam [place], [place] Start: 12-07-2019 End: 12-07-2019 Office Visit 12/07/2019 Office Visit Family Medicine Rafaela Castanon, REAL ESTATE TEACHER - LICENSED LOAN OFFICER ASSISTANT [address] [place] [address] [phone] [facility] Start: 10-05-2019 End: 10-05-2019 Office Visit 10/05/2019 Office Visit [facility] Rafaela Castanon, REAL ESTATE TEACHER - LICENSED LOAN OFFICER ASSISTANT [address] [place] [address] [phone] [facility] Start: 02-03-2019 Breast cancer screen Breast cancer screen [place], [place] Start: 2010 Shingles Vaccine (1 of 2) Shingles Vaccine (1 of 2) [place] Start: 2005 Screening for malignant neoplasm of colon [facility] Start: 2000 Screening for malignant neoplasm of breast Mammogram Screening [facility] Start: 1981 Screening for malignant neoplasm of cervix Cervical Cancer Screening [facility] Start: 1979 DTaP/Tdap/Td vaccine (1 - Tdap) DTaP/Tdap/Td vaccine (1 - Tdap) [place], [place] Start: 1978 Annual PCP Team Chronic Disease Visit Annual PCP Team Chronic Disease Visit [facility] Start: 1978 Anxiety Screening Anxiety Screening [facility] Start: 1978 BP Controlled (<130/80) BP Controlled (<130/80) [facility] in Start: 1978 Depression Screening Depression Screening [facility] Start: 1978 Diabetes: Estimated Glomerular Filtration Rate for Kidney Health Diabetes: Estimated Glomerular Filtration Rate for Kidney Health [facility] Start: 1978 Diabetes: Urine Albumin-Creatinine Ratio for Kidney Health Diabetes: Urine Albumin-Creatinine Ratio for Kidney Health [facility] Start: 1978 HIV screening HIV Screening [facility] Start: 1970 Diabetic foot examination Diabetic Foot Exam [facility] Start: 1970 Glaucoma screening [facility] Start: 1970 Preventive dental service Diabetes: Dental Exam [facility] Start: 1960 Annual wellness visit Medicare Initial Physical (IPPE) [facility] Start: 1960 Echocardiography Echocardiogram [facility] Start: 1960 Medicare Advantage Annual Wellness Visit (AWV) Medicare Advantage Annual Wellness Visit (AWV) [facility] Start: 1960 Screening for malignant neoplasm of colon [facility] Alanine aminotransfe rase [Enzymatic activity/volume] in Serum or Plasma [facility] Albumin [Mass/volume ] in Serum or Plasma [facility] Alkaline phosphatase [Enzymatic activity/volume] in Serum or Plasma [facility] Anion gap in Serum or Plasma [facility] Bilirubin, total measurement [facility] Blood chemistry [facility] BUN/Creatinine ratio [facility] Calcium [Mass/volume ] in Serum or Plasma [facility] Carbon dioxide, tota l [Moles/volume] in Central venous blood [facility] Catheterization of l eft heart [facility] CBC W Auto Different ial panel - Blood [facility] Cologua colon canc er screening [facility] colon cancer screening Lab Routine Screening for colon cancer Ordered: 10/05/2023 [facility] Comment on above: Ordered: 10/05/2023 Creatinine [Mass/vol ume] in Serum or Plasma [facility] Erythrocyte mean cor puscular volume determination [facility] Glucose [Mass/volume ] in Serum or Plasma [facility] Hematocrit [Volume F raction] of Blood [facility] Hemoglobin [Mass/vol ume] in Blood [facility] Leukocytes [#/volume ] in Blood [facility] Mean corpuscular hem oglobin concentration determination [facility] Mean corpuscular hem oglobin determination [facility] Measurement of renal function [facility] Patient Education [facility] Work Phone: Patient referral [facility] Work Phone: Platelets [#/volume] in Blood [facility] Potassium measurement [facility] Prothrombin time [facility] Red blood cell count [facility] Red cell distributio n width determination [facility] Serum chloride measurement [facility] Sodium measurement [facility] Total protein measurement [facility] Urea nitrogen [Mass/ volume] in Serum or Plasma [facility] Immunizations Immunization Date Immunization Notes Care Provider Lindsey gerard 04-16-2024 COVID-19, mRNA, LNP- S, PF, ghassan-sucrose, 30 mcg/0.3 mL Romulo Latif MD Work Phone: [facility] 04-16-2024 Seasonal, trivalent, recombinant, injectable influenza vaccine, preservative free Rafaelaserenity Castanon [employer] ESTATE TEACHER - LICENSED LOAN OFFICER ASSISTANT Work Phone: [facility] 04-16-2024 influenza virus vacc ine, unspecified formulation Romulo Latif MD Work Phone: [facility] 12-15-2023 zoster vaccine recombinant Rafaela Lg REAL ESTATE TEACHER - LICENSED LOAN OFFICER ASSISTANT Work Phone: [facility] 10-06-2023 tetanus toxoid, redu melissa diphtheria toxoid, and acellular pertussis vaccine, adsorbed Rafaelaserenity Castanon REAL ESTATE TEACHER - LICENSED LOAN OFFICER ASSISTANT Work Phone: [facility] 10-06-2023 zoster vaccine recombinant Rafaelaserenity Castanon REAL ESTATE TEACHER - LICENSED LOAN OFFICER ASSISTANT Work Phone: [facility] 10-05-2023 diphtheria, tetanus toxoids and acellular pertussis vaccine, unspecified formulation Rafaela Lg REAL ESTATE TEACHER - LICENSED LOAN OFFICER ASSISTANT Work Phone: [facility] 10-05-2023 zoster vaccine-recombinant adjuvanted (Shingrix) 50 MCG/0.5ML vaccine Rafaela Lg REAL ESTATE TEACHER - LICENSED LOAN OFFICER ASSISTANT Work Phone: [facility] 06-19-2023 RSV, bivalent, prote in subunit RSVpreF, diluent reconstututed, 0.5 mL, PF Rafaela Castanon REAL ESTATE TEACHER - LICENSED LOAN OFFICER ASSISTANT Work Phone: [facility] 05-23-2023 influenza, injectabl e, quadrivalent, contains preservative Rafaela Castanon REAL ESTATE TEACHER - LICENSED LOAN OFFICER ASSISTANT Work Phone: [facility] 05-23-2023 influenza, injectabl e, quadrivalent, preservative free Rafaela Castanon REAL ESTATE TEACHER - LICENSED LOAN OFFICER ASSISTANT Work Phone: [facility] 05-23-2023 influenza virus vacc ine, unspecified formulation Romulo Latif MD Work Phone: [facility] 03-18-2023 diphtheria, tetanus toxoids and acellular pertussis vaccine, unspecified formulation Rafaelaserenity Castanon [facility] Work Phone: [facility] 03-18-2023 zoster vaccine-recombinant adjuvanted (Shingrix) 50 MCG/0.5ML vaccine Rafaela Lg [facility] Work Phone: [facility] 05-05-2022 Covid-19, Pfizer Bivalent Booster, (Age 12y+), Im, 30 Mcg/0e Wali De La Fuente [facility] 05-05-2022 Seasonal, quadrivale nt, recombinant, injectable influenza vaccine, preservative free Wali De La Fuente [facility] 05-05-2022 influenza virus vacc ine, unspecified formulation Rafaela Lg [facility] Work Phone: [facility] 11-27-2021 Covid-19, Pfizer Gra y Top, Do Not Dilute, (Age 12 Y+), Im, L Wali De La Fuente [facility] 11-15-2021 pneumococcal conjuga te vaccine, 13 valent Wali De La Fuente [facility] 04-25-2021 Pfizer SARS-CoV-2 Vaccination Wali De La Fuente [facility] 03-25-2021 Seasonal, quadrivale nt, recombinant, injectable influenza vaccine, preservative free Wali De La Fuente [facility] 10-19-2020 Pfizer SARS-CoV-2 Vaccination Walimanish De La Fuente [facility] 09-28-2020 Pfizer SARS-CoV-2 Vaccination Walimanish De La Fuente [facility] 04-06-2020 influenza, injectabl e, quadrivalent, contains preservative Wali De La Fuente [facility] 04-22-2019 influenza, injectabl e, quadrivalent, preservative free [facility] 08-25-2018 pneumococcal polysaccharide vaccine, 23 valent [facility] 04-06-2018 influenza, injectabl e, quadrivalent, preservative free [facility] 03-20-2017 influenza virus vacc ine, unspecified formulation [facility] 03-20-2017 influenza, injectabl e, quadrivalent, preservative free Dr. Romulo Latif Work Phone: [facility] 03-20-2017 influenza, seasonal, injectable FIELD NATURALIST-C [place] Lg FIELD NATURALIST Work Phone: [facility] Work Phone: 03-18-2017 influenza, injectabl e, quadrivalent, contains preservative Rafaela Castanon [facility] [place] 03-18-2017 influenza, injectabl e, quadrivalent, preservative free Rafaelaserenity Castanon [facility] 05-13-2016 influenza, injectabl e, quadrivalent, contains preservative Rafaela Castanon [facility], [place] 04-27-2015 influenza virus vacc ine, unspecified formulation [facility] [place] 04-25-2014 influenza virus vacc ine, unspecified formulation [facility] 1961 measles, mumps and rubella virus vaccine Wali De La Fuente RN [facility] Payers Date Payer Category Payer Self-pay [id number] 2021 Medicare ANTHEM MEDICARE ADVANTAGE JEANNETTE MESA [id number] 2021-Present [id number] [place] [address] Medicare HMO [id number] 2021 Medicare (Managed Care) DARIUS Ceci [employer] [facility] [id number] 2021 Medicare HMO AN[employer]M MED[employer]LUE [id number] 2021 Medicare [id number] 2018 Medicare UHC MEDICARE UHC MEDICARE COMPLETE xxxxxxxxx 2018-Present xxxxxxxxx [id number] 2014 Medicare [id number] 1960 Unknown [id number] Medicare [id number] Unknown [id number] Unknown [facility] [id number] Unknown Unknown [id number] Unknown [id number] Unknown [id number] Unknown [id number] 462 Unknown [id number] 462 Unknown [id number] 462 Unknown [id number] 462 Unknown [id number] 462 Unknown [id number] 462 Unknown [id number] 462 Unknown [id number] 462 Social History Date Type Detail Facility Start: 09-26-2019 End: 12-05-2024 Tobacco smoking status NHIS Never smoker [facility] Start: 09-26-2019 End: 02-22-2025 Alcohol intake Current non-drinker of alcohol (finding) [place] Start: 03-09-2019 End: 11-17-2022 History SDOH Physical Activity DPW 0 [place] Start: 03-09-2019 History SDOH Financial 4 [place] Start: 03-09-2019 History SDOH Food Worry 2 [place], [place] Start: 1960 Sex Assigned At Not on file [place] Start: 10-21-2021 End: 05-04-2023 Tobacco smoking status MEIS Unknown if ever smoked [facility] Start: 10-14-2018 None [facility] Start: 10-14-2018 Spouse/ Significant Other [facility] Start: 10-15-2017 Non-smoker [facility] Start: 1960 Sex Assigned At Female [facility] Start: 07-18-2022 End: 10-05-2023 Alcohol intake [facility] Start: 07-08-2022 End: 03-18-2023 Exposure to SARS-CoV-2 (event) Not sure [facility] Start: 11-17-2022 History SDOH Alcohol Frequency 1 [facility] Start: 11-17-2022 End: 10-05-2023 Alcohol Use Disorder Identification Test - Consumption [AUDIT-C] [facility] How often to you hav e a drink containing alcohol? Never [facility] How many standard dr inks containing alcohol do you have on a typical day? Patient does not drink [facility] How hard is it for y ou to pay for the very basics like food, housing, medical care, and heating Hard [facility] (I/We) worried wheth er (my/our) food would run out before (I/we) got money to buy more. Often true [facility] In the past 12 month s, was there a time when you were not able to pay the mortgage or rent on time? No [facility] Start: 02-17-2022 End: 11-10-2024 Sex Female (finding) [facility] Start: 01-28-2017 Tobacco use and exposure Smokeless tobacco non-user [facility] How hard is it for y ou to pay for the very basics like food, housing, medical care, and heating Somewhat hard [facility] (I/We) worried wheth er (my/our) food would run out before (I/we) got money to buy more. Never true [facility] Medical Equipment Procedure Code Equipment Code Equipment Origin al Text Equipment Identifier Dates [id number] Start: 09-05-2019 USE 2 TIMES SAMIR Y FOR DIABETIC TESTING [id number] Start: 09-05-2019 USE STRIP TO DIONNE CK GLUCOSE THREE TIMES DAILY [id number] Start: 09-23-2022 End: 11-17-2022 Pharmacist Briana Robertson [facility] [id number] Start: 07-09-2021 USE STRIP TO DIONNE CK GLUCOSE THREE TIMES DAILY [id number] Start: 11-17-2022 USE STRIP TO DIONNE CK GLUCOSE THREE TIMES DAILY [id number] Start: 02-11-2023 End: 05-11-2023 Drug-eluting coronary artery stent, non-bioabsorbable- polymer-coated ()[id number] [facility] Start: 05-04-2023 USE STRIP TO DIONNE CK GLUCOSE THREE TIMES DAILY [id number] Start: 05-11-2023 End: 06-01-2023 USE STRIP TO DIONNE CK GLUCOSE THREE TIMES DAILY [id number] Start: 06-01-2023 End: 08-04-2023 USE STRIP TO DIONNE CK GLUCOSE THREE TIMES DAILY [id number] Start: 08-04-2023 USE STRIP TO DIONNE CK GLUCOSE THREE TIMES DAILY [id number] Start: 09-21-2023 End: 10-27-2023 USE STRIP TO DIONNE CK GLUCOSE THREE TIMES DAILY [id number] Start: 10-27-2023 End: 11-16-2023 USE STRIP TO DIONNE CK GLUCOSE THREE TIMES DAILY [id number] Start: 11-16-2023 End: 04-25-2024 USE STRIP TO DIONNE CK GLUCOSE THREE TIMES DAILY [id number] Start: 04-25-2024 USE STRIP TO DIONNE CK GLUCOSE THREE TIMES DAILY [id number] Start: 05-22-2022 Yasmani Bn Smplx Hv Gentamicin Fd - [id number] Start: 06-29-2014 Comp Fem 2 Rt Kn Cr Yasmani Trthln - [id number] Start: 06-29-2014 Comment on above: Description: TRIATHL ON CRUCIATE RETAINING FEMORAL #2 Comp Pat 9mm 29m m Asym Trthln - [id number] Start: 06-29-2014 Comment on above: Description: TRIATHL ON X3 ASYMMETRIC PATELLA A29 9MM Ins Tib 2 11mm X 3 Cndyl Stab - [id number] Start: 06-29-2014 Comment on above: Description: TRIATHL ON X3 TIBIAL BEARING INSERT CS SIZE 2 11MM Baseplt Tib Trth ln 2 Kn Yasmani - [id number] Start: 06-29-2014 Comment on above: Description: TRAITHL ON PRIMARY TIBIAL BASEPLATE #2 Drug-eluting coronary artery stent, non-bioabsorbable- polymer-coated ()[id number] [facility] Start: 12-05-2024 Drug-eluting coronary artery stent, non-bioabsorbable- polymer-coated ()[id number] [facility] Start: 12-05-2024 USE STRIP TO DIONNE CK GLUCOSE THREE TIMES DAILY [id number] Start: 02-10-2025 Goals Date Patient Goal Desired Activity /State Comment on above: Patient wants to con tinue to lose weight. Self- Management Goals: Below is a list of objectives your doctor would like you to consider working on help improve your overall health. Which objectives would you like to work on: Objective: overall health Barriers to success: none Plan for overcoming my barriers: n/a Confidence: moderate in terms of implementation Date goal set: today Patient given educational materials below via AVS. Patient received counseling about current lifestyle goal. Patient was informed that they should never smoke. If they are smoker, the need to work on quitting. Advised Alcohol only in moderation. Advised approximately 150 minutes of cardio, i.e treadmill, exercise in a week. Advised strive for 5 a total 5 servings of fruits and vegetables in a day. Advised a diet lower in carbohydrates and simple sugars. They need to watch consumption of bread, rice, pasta, potatoes, corn, soda, sweetened tea, lemonade, and all other sugar drinks. Patient given after visit summary which includes this educational information Discussed use, benefit, and side effects of prescribed medications and barriers to medication compliance addressed, if applicable. All patient questions answered. Patient was given a copy of this, and was advised to call if any questions. Functional Status Date Assessment Result Facility 02-22-2025 Alcohol Use Disorder Identification Test [AUDIT] [facility] 02-22-2025 Patient Health [facility] ionnaire 2 item (PHQ-2) [Reported] [facility] 12-06-2024 Functional status Chair [facility] Work Phone: 12-05-2024 Functional status Bedrest [facility] Work Phone: 07-02-2014 Are you deaf, or do you have serious difficulty hearing No 07/02/2014 11:05 AM Shaq Candelaria RN No [facility] 07-02-2014 Are you blind, or do you have serious difficulty seeing, even when wearing glasses No 07/02/2014 11:05 AM Shaq Candelaria RN No [facility] 07-02-2014 Do you have serious difficulty walking or climbing stairs Yes 07/02/2014 11:05 AM Shaq Candelaria, FIONA Yes [facility] 07-02-2014 Do you have difficul ty dressing or bathing No 07/02/2014 11:05 AM Shaq Candelaria, FIONA No [facility] 07-02-2014 Because of a physica l, mental, or emotional condition, do you have difficulty doing errands alone such as visiting a physician's office or shopping Yes 07/02/2014 11:05 AM Shaq Candelaria, FIONA Yes [facility] Mental Status Date Assessment Result Facility 05-20-2025 Cognitive function Voice/Name [facility] Work Phone: 12-05-2024 Cognitive function Voice/Name [facility] Work Phone: 04-18-2023 Cognitive function Voice/Name [facility] Work Phone: 07-02-2014 Because of a physica l, mental, or emotional condition, do you have serious difficulty concentrating, remembering, or making decisions No 07/02/2014 11:05 AM Shaq Candelaria, RN No [facility] Clinical Notes 07-18-2022 to 03-10-2025 Telephone Encounter - Lillian Robledo MA - 03/10/2025 1:14 PM EDTTelephone Encounter - Lillian Robledo MA - 03/10/2025 1:14 PM EDTTelephone Encounter - Pricila Ramirez RN - 03/10/2025 12:43 PM EDT Note Date & Type Note Facility 03-10-2025 Telephone encount er Note Patient advised and voiced understanding. [facility] 03-10-2025 Miscellaneous Notes Formattin g of this note might be different from the original. Patient advised and voiced understanding. She can increase the trazodone to 2 tablets nightly as needed for sleep for a total of 100 mg and see if this works any better. S: Patient spoke with [facility] nurse regarding not sleeping with the Trazodone. B: Onset of symptoms ongoing. [facility] 02/22/25. A: Taking Trazodone 50 mg for sleep, takes about 9:30 pm, was told if it did not work they would increase the dose. R: Patient requesting to have the dose increased. Instructed to avoid caffeine in the evening, avoid screen time before bed, use the same routine at bedtime. Patient understands care advice. No further needs at this time. Patient instructed to call back with new or worsening symptoms. Reason for Disposition [1] Insomnia lasts > 2 weeks AND [2] no improvement after using Care Advice Protocols used: [id number] documented in this encounter [facility] 03-10-2025 Telephone encount er Note She can increase the trazodone to 2 tablets nightly as needed for sleep for a total of 100 mg and see if this works any better. [facility] 03-10-2025 Telephone encount er Note S: Patient spoke with [facility] nurse regarding not sleeping with the Trazodone. B: Onset of symptoms ongoing. [facility] 02/22/25. A: Taking Trazodone 50 mg for sleep, takes about 9:30 pm, was told if it did not work they would increase the dose. R: Patient requesting to have the dose increased. Instructed to avoid caffeine in the evening, avoid screen time before bed, use the same routine at bedtime. Patient understands care advice. No further needs at this time. Patient instructed to call back with new or worsening symptoms. Reason for Disposition [1] Insomnia lasts > 2 weeks AND [2] no improvement after using Care Advice Protocols used: [id number] [facility] 02-27-2025 Telephone encount er Note Noted. [facility] 02-27-2025 Miscellaneous Notes Formattin g of this note might be different from the original. Noted. Message released to patient as written. Patient's further questions if applicable: Pt will wait 2 weeks Pt use [facility] in [place] Were all questions from office addressed or relayed to the patient from encounter: Yes Lm to return call- give message IRISH Ramirez CNP I just prescribed this medication for her 2 days ago. It can take some time to see if it is helpful or not. Please give it at least 2 weeks before deciding if it has been helpful or not and at that time maybe we could try a dose increase. I just prescribed this medication for her 2 days ago. It can take some time to see if it is helpful or not. Please give it at least 2 weeks before deciding if it has been helpful or not and at that time maybe we could try a dose increase. Name of caller: Karin Contact phone number: [phone] Relationship to Patient: patient Provider: Dr Latif Practice: [facility] Chief Complaint/Reason for Call: Pt states that the traZODone (Desyrel) 50 MG tablet is not working! Best time of day caller can be reached: any Patient advised that office/PCP has 24-48 business hours to return their call: No documented in this encounter [facility] 02-24-2025 Telephone encount er Note Message released to patient as written. Patient's further questions if applicable: Pt will wait 2 weeks Pt use [facility] in [place] Were all questions from office addressed or relayed to the patient from encounter: Yes [facility] 02-24-2025 Telephone encount er Note Lm to return call- give message IRISH Ramirez CNP I just prescribed this medication for her 2 days ago. It can take some time to see if it is helpful or not. Please give it at least 2 weeks before deciding if it has been helpful or not and at that time maybe we could try a dose increase. [facility] 02-24-2025 Telephone encount er Note I just prescribed this medication for her 2 days ago. It can take some time to see if it is helpful or not. Please give it at least 2 weeks before deciding if it has been helpful or not and at that time maybe we could try a dose increase. [facility] 02-24-2025 Telephone encount er Note Name of caller: Karin Contact phone number: [phone] Relationship to Patient: patient Provider: Dr Latif Practice: [facility] Chief Complaint/Reason for Call: Pt states that the traZODone (Desyrel) 50 MG tablet is not working! Best time of day caller can be reached: any Patient advised that office/PCP has 24-48 business hours to return their call: No T [facility] [employer] 02-22-2025 Evaluation + Plan note Associated Problem(s): Diabetes mellitus type 2 in obese (HCC) - Chronic. Not at goal. Discussed increasing Trulicity to 4.5 mg weekly pending A1c result today. - Continue Metformin as prescribed. Orders: Microalbumin / creatinine urine ratio; Future Lipid panel; Future Hemoglobin A1c; Future Comprehensive metabolic panel; Future Diabetes Foot Exam; Future Continuous Glucose Dry Cans Operator (FreeStyle [place] 3 [place]) device; Use as directed Continuous Glucose Sensor (FreeStyle Bol[place]ar 3 Sensor) misc; every 14 (fourteen) days. [facility] [employer] 02-22-2025 Evaluation + Plan note Associated Problem(s): CHF (congestive heart failure) (HCC) - Chronic, stable. Follow up with specialist as directed. - Continue Metoprolol and Entresto as prescribed. Orders: Lipid panel; Future Comprehensive metabolic panel; Future [facility] [employer] 02-22-2025 Evaluation + Plan note Associated Problem(s): Class 3 severe obesity due to excess calories with serious comorbidity and body mass index (BMI) of 40.0 to 44.9 in adult - Encouraged a healthy diet and regular exercise. - Discussed increasing Trulicity to 4 mg weekly pending lab results from today for additional weight loss potential and better management of diabetes. Orders: Comprehensive metabolic panel; Future [facility] [employer] 02-22-2025 Evaluation + Plan note Associated Problem(s): Neuropathy of both feet - Chronic. Stable with Gabapentin. Will continue current treatment plan. Orders: Comprehensive metabolic panel; Future Handicap Placard gabapentin (Neurontin) 100 MG capsule; Take 1 capsule (100 mg) by mouth 2 times daily. [facility] [employer] 02-22-2025 Evaluation + Plan note Associated Problem(s): Insomnia - Chronic. Not at goal. Will start on PRN Trazodone for sleep. - Information provided in AVS on new medication. Orders: Comprehensive metabolic panel; Future traZODone (Desyrel) 50 MG tablet; Take 1 tablet (50 mg) by mouth Nightly as needed for sleep. [facility] [employer] 02-22-2025 Evaluation + Plan note Associated Problem(s): Hypothyroidism - Chronic. Stable with Levothyroxine. Will continue current treatment plan. Orders: TSH; Future Comprehensive metabolic panel; Future [facility] 02-22-2025 Evaluation + Plan note Associated Problem(s): Atherosclerosis of coronary artery - Chronic, stable. Follow up with specialist as directed. - Continue Atorvastatin as prescribed. Orders: Lipid panel; Future Comprehensive metabolic panel; Future [facility] 02-22-2025 Evaluation + Plan note Associated Problem(s): Primary hypertension - Chronic. Stable with Entresto and Metoprolol. Will continue current treatment plan. Orders: Comprehensive metabolic panel; Future [facility] 02-22-2025 Evaluation + Plan note Associated Problem(s): Presence of stent in coronary artery - Chronic, stable. Follow up with specialist as directed. - Continue Atorvastatin and Plavix as prescribed. Orders: Lipid panel; Future Comprehensive metabolic panel; Future [facility] 02-22-2025 Evaluation + Plan note Associated Problem(s): Hyperlipidemia - Chronic. Stable with Atorvastatin. Will continue current treatment plan. Orders: Lipid panel; Future Comprehensive metabolic panel; Future [facility] 02-22-2025 Evaluation + Plan note Associated Problem(s): History of ST elevation myocardial infarction (STEMI) - Chronic, stable. Follow up with specialist as directed. - Continue Metoprolol and Atorvastatin as prescribed. Orders: Lipid panel; Future [facility] 02-22-2025 Evaluation + Plan note Associated Problem(s): GERD (gastroesophageal reflux disease) - Chronic. Stable with Omeprazole. Will continue current treatment plan. Orders: Comprehensive metabolic panel; Future [facility] 02-22-2025 Evaluation + Plan note Associated Problem(s): Cardiomyopathy (HCC) - Chronic, stable. Follow up with specialist as directed. - Continue Metoprolol and Entresto as prescribed. Orders: Comprehensive metabolic panel; Future [facility] 02-22-2025 Evaluation + Plan note Associated Problem(s): DJD (degenerative joint disease) - Chronic. Stable with PRN use of Aleve (uses sparingly). Will continue current treatment plan. Orders: Comprehensive metabolic panel; Future Handicap Placard [facility] 02-22-2025 Evaluation + Plan note Associated Problem(s): Sleep apnea - Chronic. Not well controlled due to lack of use of CPAP machine. Follow up with specialist as directed. Orders: Comprehensive metabolic panel; Future [facility] 02-22-2025 History of Presen t illness Narrative Images from the original note were not included. [facility] [address] [facility] [id number] Dept: [phone] Dept Chief Complaint: Yue Ibrahim is an 64 y.o. female here for an annual wellness visit. Assessment/Plan : Assessment & Plan Routine general medical examination at health care facility - Encouraged a healthy diet low in cholesterol and saturated fats. - Encouraged regular exercise. Diabetes mellitus type 2 in obese (HCC) - Chronic. Not at goal. Discussed increasing Trulicity to 4.5 mg weekly pending A1c result today. - Continue Metformin as prescribed. Orders: Microalbumin / creatinine urine ratio; Future Lipid panel; Future Hemoglobin A1c; Future Comprehensive metabolic panel; Future Diabetes Foot Exam; Future Continuous Glucose Dry Cans Operator (FreeStyle Bolivar 3 [place]) device; Use as directed Continuous Glucose Sensor (FreeStyle Bol[place]ar 3 Sensor) misc; every 14 (fourteen) days. Encounter for diabetic foot exam (HCC) Orders: Diabetes Foot Exam; Future Congestive heart failure, unspecified HF chronicity, unspecified heart failure type (HCC) - Chronic, stable. Follow up with specialist as directed. - Continue Metoprolol and Entresto as prescribed. Orders: Lipid panel; Future Comprehensive metabolic panel; Future Cardiomyopathy, unspecified type (HCC) - Chronic, stable. Follow up with specialist as directed. - Continue Metoprolol and Entresto as prescribed. Orders: Comprehensive metabolic panel; Future Atherosclerosis of coronary artery of [place] heart without angina pectoris, unspecified vessel or lesion type - Chronic, stable. Follow up with specialist as directed. - Continue Atorvastatin as prescribed. Orders: Lipid panel; Future Comprehensive metabolic panel; Future Presence of stent in coronary artery - Chronic, stable. Follow up with specialist as directed. - Continue Atorvastatin and Plavix as prescribed. Orders: Lipid panel; Future Comprehensive metabolic panel; Future History of ST elevation myocardial infarction (STEMI) - Chronic, stable. Follow up with specialist as directed. - Continue Metoprolol and Atorvastatin as prescribed. Orders: Lipid panel; Future Neuropathy of both feet - Chronic. Stable with Gabapentin. Will continue current treatment plan. Orders: Comprehensive metabolic panel; Future Handicap Placard gabapentin (Neurontin) 100 MG capsule; Take 1 capsule (100 mg) by mouth 2 times daily. Class 3 severe obesity due to excess calories with serious comorbidity and body mass index (BMI) of 40.0 to 44.9 in adult - Encouraged a healthy diet and regular exercise. - Discussed increasing Trulicity to 4 mg weekly pending lab results from today for additional weight loss potential and better management of diabetes. Orders: Comprehensive metabolic panel; Future Primary hypertension - Chronic. Stable with Entresto and Metoprolol. Will continue current treatment plan. Orders: Comprehensive metabolic panel; Future Hyperlipidemia, unspecified hyperlipidemia type - Chronic. Stable with Atorvastatin. Will continue current treatment plan. Orders: Lipid panel; Future Comprehensive metabolic panel; Future Hypothyroidism, unspecified type - Chronic. Stable with Levothyroxine. Will continue current treatment plan. Orders: TSH; Future Comprehensive metabolic panel; Future Gastroesophageal reflux disease, unspecified whether esophagitis present - Chronic. Stable with Omeprazole. Will continue current treatment plan. Orders: Comprehensive metabolic panel; Future Sleep apnea, unspecified type - Chronic. Not well controlled due to lack of use of CPAP machine. Follow up with specialist as directed. Orders: Comprehensive metabolic panel; Future Osteoarthritis of multiple joints, unspecified osteoarthritis type - Chronic. Stable with PRN use of Aleve (uses sparingly). Will continue current treatment plan. Orders: Comprehensive metabolic panel; Future Handicap Placard Insomnia, unspecified type - Chronic. Not at goal. Will start on PRN Trazodone for sleep. - Information provided in AVS on new medication. Orders: Comprehensive metabolic panel; Future traZODone (Desyrel) 50 MG tablet; Take 1 tablet (50 mg) by mouth Nightly as needed for sleep. Screening mammogram for breast cancer - Plans to get completed through [facility]. Orders: Bilateral screening mammogram with tomosynthesis; Future I have reviewed and reconciled the medication list with the patient today. Current Outpatient Medications Medication Sig Dispense Refill ascorbic acid (Vitamin C) 250 MG tablet Take 500 mg by mouth daily. ASPIRIN 81 PO Take 81 mg by mouth. atorvastatin (Lipitor) 40 MG tablet Take 1 tablet (40 mg) by mouth daily. 90 tablet 1 Blood Glucose Calibration ([employer]unk Incuch Verio) High solution Blood Glucose Monitoring Suppl (SABIATouch Verio) w/Device kit 1 Device in the morning and 1 Device at noon and 1 Device in the evening. 1 kit 0 clopidogrel (Plavix) 75 MG tablet Take 1 tablet (75 mg) by mouth daily. 90 tablet 1 coenzyme Q-10 10 MG capsule coenzyme Q10 Ubidecarenone Active 100 MG DAILY August 02, 2018 1:02pm 08-02-2018 [facility] ([id number]) dulaglutide (Trulicity) 3 MG/0.5ML Inject 3 mg under the skin 1 (one) time per week. 4 each 2 Entresto 49-51 MG tablet 1 tablet. furosemide (Lasix) 40 MG tablet levothyroxine (Synthroid, Levoxyl) 50 MCG tablet Take 1 tablet (50 mcg) by mouth daily. 90 tablet 1 metFORMIN XR (Glucophage-XR) 500 MG 24 hr tablet Take 2 tablets (1,000 mg) by mouth 2 times daily (with meals). 360 tablet 1 metoprolol succinate XL (Toprol-XL) 200 MG 24 hr tablet Take 200 mg by mouth daily. nitroglycerin (Nitrostat) 0.4 MG SL tablet every 5 minutes as needed for chest pain up to 3 doses total omeprazole (PriLOSEC) [address] capsule Take 1 capsule (20 mg) by mouth daily. Do not crush or chew. 90 capsule 1 OneTouch Verio test strip USE STRIP TO CHECK GLUCOSE THREE TIMES DAILY 200 each 5 Pharmacist Choice Lancets misc zinc 100 MG tablet Take by mouth. Continuous Glucose Dry Cans Operator (FreeStyle Bolivar 3 [place]) device Use as directed 1 each 0 Continuous Glucose Sensor (FreeStyle [place] 3 Sensor) misc every 14 (fourteen) days. 2 each 5 gabapentin (Neurontin) 100 MG capsule Take 1 capsule (100 mg) by mouth 2 times daily. traZODone (Desyrel) 50 MG tablet Take 1 tablet (50 mg) by mouth Nightly as needed for sleep. 30 tablet 0 No current facility-administered medications for this visit. Also reviewed during this visit: The following health maintenance schedule was reviewed with the patient and provided in printed form in the after visit summary: Health Maintenance Topic Date Due Medicare Initial Physical (IPPE) Never done Mammogram 04/23/2023 Diabetes: Retinopathy Screening 12/19/2023 Diabetes: Dental Exam 06/23/2024 Medicare Advantage Annual Wellness Visit 07/20/2024 TSH Level 01/07/2025 Diabetes: Urine Albumin-Creatinine Ratio for Kidney Health 01/07/2025 Diabetes: Foot Exam 01/07/2025 Lipid Panel 01/07/2025 Hepatitis C Screening 06/27/2025 (Originally 1978) Influenza Vaccine (1) 03/20/2025 Echocardiogram 04/05/2025 Diabetes: Estimated Glomerular Filtration Rate for Kidney Health 06/27/2025 Diabetes: Hemoglobin A1C 06/27/2025 Creatinine Level 11/07/2025 Potassium Level 11/07/2025 Depression Screening 02/22/2026 Pneumococcal Vaccine: 50+ Years (3 of 3 - PCV20 or PCV21) 11/15/2026 DTaP/Tdap/Td Vaccines (2 - Td or Tdap) 10/05/2033 Colorectal Cancer Screening 06/30/2034 RSV Immunization for Adults Completed MMR Vaccines Completed Zoster Vaccines Completed HIV Screening Completed COVID-19 Vaccine Completed RSV Immunization under 20 Months Aged Out HIB Vaccines Aged Out Hepatitis B Vaccines Aged Out IPV Vaccines Aged Out Hepatitis A Vaccines Aged Out Meningococcal Vaccine Aged Out Rotavirus Vaccines Aged Out HPV Vaccines Aged Out Meningococcal B Vaccine Aged Out List of current healthcare providers: Patient Care Team: Romulo Latif MD as PCP - General Orders Placed This Encounter Procedures Handicap Placard 5 years: Expires February 2030 The face to face evaluation was performed on: 02/22/2025 Bilateral screening mammogram with tomosynthesis Standing Status: Future Expected Date: 02/22/2025 Expiration Date: 04/24/2026 Microalbumin / creatinine urine ratio Standing Status: Future Number of Occurrences: 1 Expected Date: 02/22/2025 Expiration Date: 02/21/2026 TSH Standing Status: Future Number of Occurrences: 1 Expected Date: 02/22/2025 Expiration Date: 02/21/2026 Lipid panel Standing Status: Future Number of Occurrences: 1 Expected Date: 02/22/2025 Expiration Date: 02/21/2026 Hemoglobin A1c Standing Status: Future Number of Occurrences: 1 Expected Date: 02/22/2025 Expiration Date: 02/21/2026 Comprehensive metabolic panel Standing Status: Future Number of Occurrences: 1 Expected Date: 02/22/2025 Expiration Date: 02/21/2026 Hm Diabetes Foot Exam Standing Status: Future Expected Date: 02/22/2025 Expiration Date: 02/21/2026 Review of Systems Constitutional: Negative for chills and fever. HENT: Positive for hearing loss. Negative for trouble swallowing. Eyes: Negative for pain and visual disturbance. Respiratory: Positive for shortness of breath. Negative for cough, chest tightness and wheezing. Cardiovascular: Negative for chest pain, palpitations and leg swelling. Gastrointestinal: Negative for abdominal distention, abdominal pain, blood in stool, constipation and diarrhea. Endocrine: Negative for polydipsia, polyphagia and polyuria. Genitourinary: Negative for dysuria and hematuria. Musculoskeletal: Positive for arthralgias. Skin: Negative for wound. Neurological: Positive for numbness. Negative for dizziness, syncope, weakness and headaches. Hematological: Does not bruise/bleed easily. Psychiatric/Behavioral: Positive for sleep disturbance. Negative for behavioral problems, confusion and decreased concentration. Physical Exam Constitutional: General: Not in acute distress. Appearance: Not ill-appearing or diaphoretic. HENT: Head: Normocephalic and atraumatic. Right Ear: Tympanic membrane, ear canal and external ear normal. There is no impacted cerumen. Left Ear: Tympanic membrane, ear canal and external ear normal. There is no impacted cerumen. Nose: Nose normal. No congestion or rhinorrhea. Mouth/Throat: Mouth: Mucous membranes are moist. Pharynx: Oropharynx is clear. No oropharyngeal exudate or posterior oropharyngeal erythema. Eyes: General: No scleral icterus. Extraocular Movements: Extraocular movements intact. Pupils: Pupils are equal, round, and reactive to light. Neck: Thyroid: No thyroid mass or thyromegaly. Vascular: No carotid bruit. Cardiovascular: Rate and Rhythm: Normal rate and regular rhythm. Pulses: Normal pulses. Heart sounds: Normal heart sounds. No murmur heard. No friction rub. Pulmonary: Effort: Pulmonary effort is normal. Breath sounds: Normal breath sounds. No wheezing, rhonchi or rales. Breast Exam: Declines a breast exam. Abdominal: General: Bowel sounds are normal. There is no distension. Palpations: Abdomen is soft. There is no hepatomegaly, splenomegaly or mass. Tenderness: There is no abdominal tenderness. There is no guarding or rebound. Musculoskeletal: General: No deformity. Normal range of motion. Cervical back: Normal range of motion and neck supple. Right lower leg: No edema. Left lower leg: No edema. Lymphadenopathy: Cervical: No cervical adenopathy. Skin: General: Skin is warm and dry. Capillary Refill: Capillary refill takes less than 2 seconds. Coloration: Skin is not jaundiced or pale. Findings: No erythema or rash. Diabetic foot check: Normal strength and range of motion of toes, feet, and ankles bilaterally. No joint deformity. No cyanosis or clubbing. 100% sensation with 10 gram filament. Dorsalis pedis pulses intact bilaterally. Capillary refill at the toes was less than 2 seconds. Light touch sensation intact bilaterally. Hair growth present on feet and toes bilaterally. No skin breakdown, erythema, rub spots, blisters, scaling, or ulcers. No calluses or corns. Toenails thin and not ingrown. No evidence of fungal infection. Neurological: Mental Status: Alert and oriented to person, place, and time. Motor: No weakness. Coordination: Coordination normal. Gait: Gait normal. Psychiatric: Mood and Affect: Mood normal. Behavior: Behavior normal. Thought Content: Thought content normal. Judgment: Judgment normal. Objective : BP 95/66 Pulse 87 Ht 5' 3.5 (1.613 m) Wt 245 lb 12.8 oz (111 kg) SpO2 94% BMI 42.86 kg/m No results found. Subjective : Karin presents today for her annual Medicare physical and blood work. Diabetes Mellitus Type II: Most recent hemoglobin A1c was 8% on 06/27/2024. Had the dose of her Trulicity increased to 3 mg at that time. Known diabetic complications: peripheral neuropathy and cardiovascular disease- actively follows up with cardiology and is scheduled to see them again in March. Taking Gabapentin- feels this helps some. Taking 100 mg twice a day. Cardiovascular risk factors: diabetes mellitus, dyslipidemia, hypertension, obesity (BMI >= 30 kg/m2), and sedentary lifestyle Current diabetic medications include: Metformin and Trulicity. Eye exam current (within one year): Yes - [facility] around 12/18/24 Dental exam current (within one year): No- 06/23/23. Reminded to schedule. Weight trend: has lost 4 pounds over the past 9 months Current diet: in general, an unhealthy diet- feels she has not been eating as much Current exercise: none- did get a stationary bicycle and plans to use this Current monitoring regimen: home blood tests - yes Home blood sugar records: fasting range: averages 120-189 Any episodes of hypoglycemia? No - denies signs or symptoms Is She on CLAUDIA inhibitor or angiotensin II receptor yeyo? Yes (Entresto)- blood pressure is stable today at 95/66. Continues to take her Metoprolol as well. Currently on statin therapy? Yes - Atorvastatin. Will recheck levels today. Component Ref Range & Units (01/08/24) (01/04/24) (11/17/22) (11/15/21) (04/06/20) CHOLESTEROL, TOTAL <200 mg/dL 120 116 HDL CHOLESTEROL > OR = 50 mg/dL 37 Low 33 Abnormal R 38 Low 37 Low R 41 R TRIGLYCERIDES <150 mg/dL 249 High 188 Abnormal R 193 High 268 Abnormal 204 Abnormal LDL-CHOLESTEROL mg/dL (calc) 54 52 CM CHOL/HDLC RATIO <5.0 (calc) 3.2 3.1 NON HDL CHOLESTEROL <130 mg/dL (calc) 83 78 CM Last urine microalbumin was 2.8 mg/L on 01/08/24. Will recheck today. Last foot exam was 01/08/24. Will do today. Hypothyroidism: Takes Levothyroxine as prescribed. TSH was within normal range at 3.2 mIU/L on 01/08/24. Will recheck today. GERD: Takes Omeprazole daily as prescribed. Feels symptoms are stable. Denies abdominal pain or dark black tarry stools. Sleep Apnea: Has not been wearing her CPAP for her sleep for several years. Plans to follow up with her computer systems analyst to look for other options since she does not tolerate the CPAP. Arthritis: Takes Gabapentin and feels symptoms are stable. Will take Aleve intermittently but uses this sparingly due to her other heart medications. Insomnia: Currently averaging 2-4 (interrupted) hours of sleep per night and does not feel symptoms are stable. Currently taking 12 mg of Melatonin with no relief. Health Maintenance: Colonoscopy with Dr. Montelongo: 06/30/24. Tdap current: 10/06/23. Declines to be vaccinated for Hep B. Is fully vaccinated for shingles. Declines screening for HIV and Hep C. Mammogram: 04/23/22- had an order placed for repeat imaging in February 2023 and 06/27/24 but never got this scheduled- needs a new order placed today. Current on pneumonia vaccinations: PPSV23 on 08/25/18 and PCV13 on 11/15/21. Vaccinated for COVID-19 x7 with most recent dose on 04/16/24. Has had a hysterectomy and no longer gets pap smears. Echocardiogram: 04/05/24. RSV immunization: 06/19/23. Health Risk Assessment: General: General In general, how would you say your health is?: (!) Fair In the past 7 days, have you experienced any of the following: New or Increased Pain, New or Increased Fatigue, Loneliness, Social Isolation, Stress or Anger?: No Do you get the social and emotional suppport you need?: Yes Interventions: Poor self-assessment of health status: See HPI Health Habits/Nutrition: Health Habits / Nutrition On average, how many days per week do you engage in moderate to strenous exercise (like a brisk walk)?: 2 days On average, how man minutes do you engage in exercise at this level?: 10 min Have you lost any weight without trying in the past 3 months? : No Have you seen the dentist within the past year?: (!) No Interventions: Dental exam overdue: Patient encouraged to make appointment with his / her dentist Hearing/ Vision: Hearing / Vision Do you or your family notice any trouble with your hearing that hasn't been managed with hearing aids?: (!) Yes Do you have difficulty driving, watching TV, or doing any of your daily activities because of your eyesight?: No Have you had an eye exam within the past year?: Yes No results found. Interventions: Hearing concerns: Patient declines any further evaluation / treatment for hearing issues Safety: Safety Do you have a working smoke detector?: Yes Do you have any tripping hazards - loose or unsecured carpets or rugs?: No Do you have any tripping hazards - clutter in doorways, halls, or stairs?: No Do you have either shower bars, grab bars, non-slip mats or non-slip surfaces in your shower or bathtub? : Yes Do all your stairways have a railing or banister? : Not Applicable Do you fasten your seatbelt when you are in a car?: Yes ADL: ADL In the past 7 days, did you need help from others to perform any of the following everyday activities: Eating, dressing, grooming,bathing, toileting, or walking / balance? : No In the past 7 days, did you need help from others to take care of any of the following: laundry, housekeeping, banking / finances,shopping, telephone use, food preparation, transportation, or taking medications? : No Living Will: Living Will Do you have a living will?: No Interventions: Was provided a packet with information and forms but has not completed it yet. Cognitive: Cognitive Screening: Mini-Cog Clock Drawing Test (CDT): 2 Words Recalled: 3 Total Score: 5 Total Score Interpretation: Normal Mini-Cog Hypertension: Yes Fall Risk: Fall Risk One or more falls in the last year:: No Advised to use a cane or walker to get around safely:: Yes Feels unsteady when walking:: No Steadies self on furniture while walking at home:: No Worried about falling:: Yes Home safety tips provided. Depression Screening: Over the past 2 weeks, how often have you been bothered by any of the following problems? Little interest or pleasure in doing things: Not at all Feeling down, depressed, or hopeless: Not at all Patient Health Questionnaire-2 Score: 0 Interventions: N/A Tobacco Use: Social History Tobacco Use Smoking Status Never Smokeless Tobacco Never Alcohol Use: Audit Alcohol Screening Q1: How often do you have a drink containing alcohol?: Never Q2: How many drinks containing alcohol do you have on a typical day when you are drinking?: Patient does not drink Social Drivers of Health: SDOH risk assessment performed and documented today by members of the health care team. A total time of 15+ minutes was spent obtaining information from the patient and discussing options to address the patient's social risk factors and unmet needs. Social Drivers of Health with Concerns Concerns Present Financial Resource Strain: Medium Risk (02/22/2025) Physical Activity: Insufficiently Active (02/22/2025) documented in this encounter [facility] 02-22-2025 History of Presen t illness Narrative Images from the original note were not included. [place] [id number] [facility] [address] [facility] [id number] Dept: [phone] Dept Chief Complaint: Yue Ibrahim is an 64 y.o. female here for an annual wellness visit. Assessment/Plan : Assessment & Plan Routine general medical examination at health care facility - Encouraged a healthy diet low in cholesterol and saturated fats. - Encouraged regular exercise. Diabetes mellitus type 2 in obese (HCC) - Chronic. Not at goal. Discussed increasing Trulicity to 4.5 mg weekly pending A1c result today. - Continue Metformin as prescribed. Orders: Microalbumin / creatinine urine ratio; Future Lipid panel; Future Hemoglobin A1c; Future Comprehensive metabolic panel; Future Diabetes Foot Exam; Future Continuous Glucose Dry Cans Operator (FreeStyle Bolivar 3 [place]) device; Use as directed Continuous Glucose Sensor (FreeStyle Bolivar 3 Sensor) misc; every 14 (fourteen) days. Encounter for diabetic foot exam (HCC) Orders: Diabetes Foot Exam; Future Congestive heart failure, unspecified HF chronicity, unspecified heart failure type (HCC) - Chronic, stable. Follow up with specialist as directed. - Continue Metoprolol and Entresto as prescribed. Orders: Lipid panel; Future Comprehensive metabolic panel; Future Cardiomyopathy, unspecified type (HCC) - Chronic, stable. Follow up with specialist as directed. - Continue Metoprolol and Entresto as prescribed. Orders: Comprehensive metabolic panel; Future Atherosclerosis of coronary artery of [place] heart without angina pectoris, unspecified vessel or lesion type - Chronic, stable. Follow up with specialist as directed. - Continue Atorvastatin as prescribed. Orders: Lipid panel; Future Comprehensive metabolic panel; Future Presence of stent in coronary artery - Chronic, stable. Follow up with specialist as directed. - Continue Atorvastatin and Plavix as prescribed. Orders: Lipid panel; Future Comprehensive metabolic panel; Future History of ST elevation myocardial infarction (STEMI) - Chronic, stable. Follow up with specialist as directed. - Continue Metoprolol and Atorvastatin as prescribed. Orders: Lipid panel; Future Neuropathy of both feet - Chronic. Stable with Gabapentin. Will continue current treatment plan. Orders: Comprehensive metabolic panel; Future Handicap Placard gabapentin (Neurontin) 100 MG capsule; Take 1 capsule (100 mg) by mouth 2 times daily. Class 3 severe obesity due to excess calories with serious comorbidity and body mass index (BMI) of 40.0 to 44.9 in adult - Encouraged a healthy diet and regular exercise. - Discussed increasing Trulicity to 4 mg weekly pending lab results from today for additional weight loss potential and better management of diabetes. Orders: Comprehensive metabolic panel; Future Primary hypertension - Chronic. Stable with Entresto and Metoprolol. Will continue current treatment plan. Orders: Comprehensive metabolic panel; Future Hyperlipidemia, unspecified hyperlipidemia type - Chronic. Stable with Atorvastatin. Will continue current treatment plan. Orders: Lipid panel; Future Comprehensive metabolic panel; Future Hypothyroidism, unspecified type - Chronic. Stable with Levothyroxine. Will continue current treatment plan. Orders: TSH; Future Comprehensive metabolic panel; Future Gastroesophageal reflux disease, unspecified whether esophagitis present - Chronic. Stable with Omeprazole. Will continue current treatment plan. Orders: Comprehensive metabolic panel; Future Sleep apnea, unspecified type - Chronic. Not well controlled due to lack of use of CPAP machine. Follow up with specialist as directed. Orders: Comprehensive metabolic panel; Future Osteoarthritis of multiple joints, unspecified osteoarthritis type - Chronic. Stable with PRN use of Aleve (uses sparingly). Will continue current treatment plan. Orders: Comprehensive metabolic panel; Future Handicap Placard Insomnia, unspecified type - Chronic. Not at goal. Will start on PRN Trazodone for sleep. - Information provided in AVS on new medication. Orders: Comprehensive metabolic panel; Future traZODone (Desyrel) 50 MG tablet; Take 1 tablet (50 mg) by mouth Nightly as needed for sleep. Screening mammogram for breast cancer - Plans to get completed through [facility]. Orders: Bilateral screening mammogram with tomosynthesis; Future Type 2 diabetes mellitus with hyperglycemia, without long-term current use of insulin (HCC) - Chronic. Not at goal. Discussed increasing Trulicity to 4.5 mg weekly pending A1c result today. - Continue Metformin as prescribed. Orders: Microalbumin / creatinine urine ratio; Future Hemoglobin A1c; Future Comprehensive metabolic panel; Future Diabetes Foot Exam; Future I have reviewed and reconciled the medication list with the patient today. Current Outpatient Medications Medication Sig Dispense Refill ascorbic acid (Vitamin C) 250 MG tablet Take 500 mg by mouth daily. ASPIRIN 81 PO Take 81 mg by mouth. atorvastatin (Lipitor) 40 MG tablet Take 1 tablet (40 mg) by mouth daily. 90 tablet 1 Blood Glucose Calibration (OneTouch Verio) High solution Blood Glucose Monitoring Suppl (OneTouch Verio) w/Device kit 1 Device in the morning and 1 Device at noon and 1 Device in the evening. 1 kit 0 clopidogrel (Plavix) 75 MG tablet Take 1 tablet (75 mg) by mouth daily. 90 tablet 1 coenzyme Q-10 10 MG capsule coenzyme Q10 Ubidecarenone Active 100 MG DAILY August 02, 2018 1:02pm 08-02-2018 [facility] ([id number]) dulaglutide (Trulicity) 3 MG/0.5ML Inject 3 mg under the skin 1 (one) time per week. 4 each 2 Entresto 49-51 MG tablet 1 tablet. furosemide (Lasix) 40 MG tablet levothyroxine (Synthroid, Levoxyl) 50 MCG tablet Take 1 tablet (50 mcg) by mouth daily. 90 tablet 1 metFORMIN XR (Glucophage-XR) 500 MG 24 hr tablet Take 2 tablets (1,000 mg) by mouth 2 times daily (with meals). 360 tablet 1 metoprolol succinate XL (Toprol-XL) 200 MG 24 hr tablet Take 200 mg by mouth daily. nitroglycerin (Nitrostat) 0.4 MG SL tablet every 5 minutes as needed for chest pain up to 3 doses total omeprazole (PriLOSEC) [address] capsule Take 1 capsule (20 mg) by mouth daily. Do not crush or chew. 90 capsule 1 OneTouch Verio test strip USE STRIP TO CHECK GLUCOSE THREE TIMES DAILY 200 each 5 Pharmacist Choice Lancets misc zinc 100 MG tablet Take by mouth. Continuous Glucose Dry Cans Operator (FreeStyle Bolivar 3 [place]) device Use as directed 1 each 0 Continuous Glucose Sensor (FreeStyle Bolivar 3 Sensor) misc every 14 (fourteen) days. 2 each 5 gabapentin (Neurontin) 100 MG capsule Take 1 capsule (100 mg) by mouth 2 times daily. traZODone (Desyrel) 50 MG tablet Take 1 tablet (50 mg) by mouth Nightly as needed for sleep. 30 tablet 0 No current facility-administered medications for this visit. Also reviewed during this visit: The following health maintenance schedule was reviewed with the patient and provided in printed form in the after visit summary: Health Maintenance Topic Date Due Medicare Initial Physical (IPPE) Never done Mammogram 04/23/2023 Diabetes: Retinopathy Screening 12/19/2023 Diabetes: Dental Exam 06/23/2024 Diabetes: Foot Exam 01/07/2025 Hepatitis C Screening 06/27/2025 (Originally 1978) Influenza Vaccine (1) 03/20/2025 Echocardiogram 04/05/2025 Depression Screening 02/22/2026 Creatinine Level 02/22/2026 Potassium Level 02/22/2026 TSH Level 02/22/2026 Diabetes: Estimated Glomerular Filtration Rate for Kidney Health 02/22/2026 Diabetes: Urine Albumin-Creatinine Ratio for Kidney Health 02/22/2026 Lipid Panel 02/22/2026 Diabetes: Hemoglobin A1C 02/22/2026 Pneumococcal Vaccine: 50+ Years (3 of 3 - PCV20 or PCV21) 11/15/2026 DTaP/Tdap/Td Vaccines (2 - Td or Tdap) 10/05/2033 Colorectal Cancer Screening 06/30/2034 Medicare Advantage Annual Wellness Visit Completed RSV Immunization for Adults Completed MMR Vaccines Completed Zoster Vaccines Completed HIV Screening Completed COVID-19 Vaccine Completed RSV Immunization under 20 Months Aged Out HIB Vaccines Aged Out Hepatitis B Vaccines Aged Out IPV Vaccines Aged Out Hepatitis A Vaccines Aged Out Meningococcal Vaccine Aged Out Rotavirus Vaccines Aged Out HPV Vaccines Aged Out Meningococcal B Vaccine Aged Out List of current healthcare providers: Patient Care Team: Romulo Latif MD as PCP - General Orders Placed This Encounter Procedures Handicap Placard 5 years: Expires February 2030 The face to face evaluation was performed on: 02/22/2025 Bilateral screening mammogram with tomosynthesis Standing Status: Future Expected Date: 02/22/2025 Expiration Date: 04/24/2026 Microalbumin / creatinine urine ratio Standing Status: Future Number of Occurrences: 1 Expected Date: 02/22/2025 Expiration Date: 02/21/2026 TSH Standing Status: Future Number of Occurrences: 1 Expected Date: 02/22/2025 Expiration Date: 02/21/2026 Lipid panel Standing Status: Future Number of Occurrences: 1 Expected Date: 02/22/2025 Expiration Date: 02/21/2026 Hemoglobin A1c Standing Status: Future Number of Occurrences: 1 Expected Date: 02/22/2025 Expiration Date: 02/21/2026 Comprehensive metabolic panel Standing Status: Future Number of Occurrences: 1 Expected Date: 02/22/2025 Expiration Date: 02/21/2026 Diabetes Foot Exam Standing Status: Future Expected Date: 02/22/2025 Expiration Date: 02/21/2026 Review of Systems Constitutional: Negative for chills and fever. HENT: Positive for hearing loss. Negative for trouble swallowing. Eyes: Negative for pain and visual disturbance. Respiratory: Positive for shortness of breath. Negative for cough, chest tightness and wheezing. Cardiovascular: Negative for chest pain, palpitations and leg swelling. Gastrointestinal: Negative for abdominal distention, abdominal pain, blood in stool, constipation and diarrhea. Endocrine: Negative for polydipsia, polyphagia and polyuria. Genitourinary: Negative for dysuria and hematuria. Musculoskeletal: Positive for arthralgias. Skin: Negative for wound. Neurological: Positive for numbness. Negative for dizziness, syncope, weakness and headaches. Hematological: Does not bruise/bleed easily. Psychiatric/Behavioral: Positive for sleep disturbance. Negative for behavioral problems, confusion and decreased concentration. Physical Exam Constitutional: General: Not in acute distress. Appearance: Not ill-appearing or diaphoretic. HENT: Head: Normocephalic and atraumatic. Right Ear: Tympanic membrane, ear canal and external ear normal. There is no impacted cerumen. Left Ear: Tympanic membrane, ear canal and external ear normal. There is no impacted cerumen. Nose: Nose normal. No congestion or rhinorrhea. Mouth/Throat: Mouth: Mucous membranes are moist. Pharynx: Oropharynx is clear. No oropharyngeal exudate or posterior oropharyngeal erythema. Eyes: General: No scleral icterus. Extraocular Movements: Extraocular movements intact. Pupils: Pupils are equal, round, and reactive to light. Neck: Thyroid: No thyroid mass or thyromegaly. Vascular: No carotid bruit. Cardiovascular: Rate and Rhythm: Normal rate and regular rhythm. Pulses: Normal pulses. Heart sounds: Normal heart sounds. No murmur heard. No friction rub. Pulmonary: Effort: Pulmonary effort is normal. Breath sounds: Normal breath sounds. No wheezing, rhonchi or rales. Breast Exam: Declines a breast exam. Abdominal: General: Bowel sounds are normal. There is no distension. Palpations: Abdomen is soft. There is no hepatomegaly, splenomegaly or mass. Tenderness: There is no abdominal tenderness. There is no guarding or rebound. Musculoskeletal: General: No deformity. Normal range of motion. Cervical back: Normal range of motion and neck supple. Right lower leg: No edema. Left lower leg: No edema. Lymphadenopathy: Cervical: No cervical adenopathy. Skin: General: Skin is warm and dry. Capillary Refill: Capillary refill takes less than 2 seconds. Coloration: Skin is not jaundiced or pale. Findings: No erythema or rash. Diabetic foot check: Normal strength and range of motion of toes, feet, and ankles bilaterally. No joint deformity. No cyanosis or clubbing. 100% sensation with 10 gram filament. Dorsalis pedis pulses intact bilaterally. Capillary refill at the toes was less than 2 seconds. Light touch sensation intact bilaterally. Hair growth present on feet and toes bilaterally. No skin breakdown, erythema, rub spots, blisters, scaling, or ulcers. No calluses or corns. Toenails thin and not ingrown. No evidence of fungal infection. Neurological: Mental Status: Alert and oriented to person, place, and time. Motor: No weakness. Coordination: Coordination normal. Gait: Gait normal. Psychiatric: Mood and Affect: Mood normal. Behavior: Behavior normal. Thought Content: Thought content normal. Judgment: Judgment normal. Objective : BP 95/66 Pulse 87 Ht 5' 3.5 (1.613 m) Wt 245 lb 12.8 oz (111 kg) SpO2 94% BMI 42.86 kg/m No results found. Subjective : Karin presents today for her annual Medicare physical and blood work. Diabetes Mellitus Type II: Most recent hemoglobin A1c was 8% on 06/27/2024. Had the dose of her Trulicity increased to 3 mg at that time. Known diabetic complications: peripheral neuropathy and cardiovascular disease- actively follows up with cardiology and is scheduled to see them again in March. Taking Gabapentin- feels this helps some. Taking 100 mg twice a day. Cardiovascular risk factors: diabetes mellitus, dyslipidemia, hypertension, obesity (BMI >= 30 kg/m2), and sedentary lifestyle Current diabetic medications include: Metformin and Trulicity. Eye exam current (within one year): Yes - [facility] around 12/18/24 Dental exam current (within one year): No- 06/23/23. Reminded to schedule. Weight trend: has lost 4 pounds over the past 9 months Current diet: in general, an unhealthy diet- feels she has not been eating as much Current exercise: none- did get a stationary bicycle and plans to use this Current monitoring regimen: home blood tests - yes Home blood sugar records: fasting range: averages 120-189 Any episodes of hypoglycemia? No - denies signs or symptoms Is She on CLAUDIA inhibitor or angiotensin II receptor yeyo? Yes (Entresto)- blood pressure is stable today at 95/66. Continues to take her Metoprolol as well. Currently on statin therapy? Yes - Atorvastatin. Will recheck levels today. Component Ref Range & Units (01/08/24) (01/04/24) (11/17/22) (11/15/21) (04/06/20) CHOLESTEROL, TOTAL <200 mg/dL 120 116 HDL CHOLESTEROL > OR = 50 mg/dL 37 Low 33 Abnormal R 38 Low 37 Low R 41 R TRIGLYCERIDES <150 mg/dL 249 High 188 Abnormal R 193 High 268 Abnormal 204 Abnormal LDL-CHOLESTEROL mg/dL (calc) 54 52 CM CHOL/HDLC RATIO <5.0 (calc) 3.2 3.1 NON HDL CHOLESTEROL <130 mg/dL (calc) 83 78 CM Last urine microalbumin was 2.8 mg/L on 01/08/24. Will recheck today. Last foot exam was 01/08/24. Will do today. Hypothyroidism: Takes Levothyroxine as prescribed. TSH was within normal range at 3.2 mIU/L on 01/08/24. Will recheck today. GERD: Takes Omeprazole daily as prescribed. Feels symptoms are stable. Denies abdominal pain or dark black tarry stools. Sleep Apnea: Has not been wearing her CPAP for her sleep for several years. Plans to follow up with her computer systems analyst to look for other options since she does not tolerate the CPAP. Arthritis: Takes Gabapentin and feels symptoms are stable. Will take Aleve intermittently but uses this sparingly due to her other heart medications. Insomnia: Currently averaging 2-4 (interrupted) hours of sleep per night and does not feel symptoms are stable. Currently taking 12 mg of Melatonin with no relief. Health Maintenance: Colonoscopy with Dr. Montelongo: 06/30/24. Tdap current: 10/06/23. Declines to be vaccinated for Hep B. Is fully vaccinated for shingles. Declines screening for HIV and Hep C. Mammogram: 04/23/22- had an order placed for repeat imaging in February 2023 and 06/27/24 but never got this scheduled- needs a new order placed today. Current on pneumonia vaccinations: PPSV23 on 08/25/18 and PCV13 on 11/15/21. Vaccinated for COVID-19 x7 with most recent dose on 04/16/24. Has had a hysterectomy and no longer gets pap smears. Echocardiogram: 04/05/24. RSV immunization: 06/19/23. Health Risk Assessment: General: General In general, how would you say your health is?: (!) Fair In the past 7 days, have you experienced any of the following: New or Increased Pain, New or Increased Fatigue, Loneliness, Social Isolation, Stress or Anger?: No Do you get the social and emotional suppport you need?: Yes Interventions: Poor self-assessment of health status: See HPI Health Habits/Nutrition: Health Habits / Nutrition On average, how many days per week do you engage in moderate to strenous exercise (like a brisk walk)?: 2 days On average, how man minutes do you engage in exercise at this level?: 10 min Have you lost any weight without trying in the past 3 months? : No Have you seen the dentist within the past year?: (!) No Interventions: Dental exam overdue: Patient encouraged to make appointment with his / her dentist Hearing/ Vision: Hearing / Vision Do you or your family notice any trouble with your hearing that hasn't been managed with hearing aids?: (!) Yes Do you have difficulty driving, watching TV, or doing any of your daily activities because of your eyesight?: No Have you had an eye exam within the past year?: Yes No results found. Interventions: Hearing concerns: Patient declines any further evaluation / treatment for hearing issues Safety: Safety Do you have a working smoke detector?: Yes Do you have any tripping hazards - loose or unsecured carpets or rugs?: No Do you have any tripping hazards - clutter in doorways, halls, or stairs?: No Do you have either shower bars, grab bars, non-slip mats or non-slip surfaces in your shower or bathtub? : Yes Do all your stairways have a railing or banister? : Not Applicable Do you fasten your seatbelt when you are in a car?: Yes ADL: ADL In the past 7 days, did you need help from others to perform any of the following everyday activities: Eating, dressing, grooming,bathing, toileting, or walking / balance? : No In the past 7 days, did you need help from others to take care of any of the following: laundry, housekeeping, banking / finances,shopping, telephone use, food preparation, transportation, or taking medications? : No Living Will: Living Will Do you have a living will?: No Interventions: Was provided a packet with information and forms but has not completed it yet. Cognitive: Cognitive Screening: Mini-Cog Clock Drawing Test (CDT): 2 Words Recalled: 3 Total Score: 5 Total Score Interpretation: Normal Mini-Cog Hypertension: Yes Fall Risk: Fall Risk One or more falls in the last year:: No Advised to use a cane or walker to get around safely:: Yes Feels unsteady when walking:: No Steadies self on furniture while walking at home:: No Worried about falling:: Yes Home safety tips provided. Depression Screening: Over the past 2 weeks, how often have you been bothered by any of the following problems? Little interest or pleasure in doing things: Not at all Feeling down, depressed, or hopeless: Not at all Patient Health Questionnaire-2 Score: 0 Interventions: N/A Tobacco Use: Social History Tobacco Use Smoking Status Never Smokeless Tobacco Never Alcohol Use: Audit Alcohol Screening Q1: How often do you have a drink containing alcohol?: Never Q2: How many drinks containing alcohol do you have on a typical day when you are drinking?: Patient does not drink Social Drivers of Health: SDOH risk assessment performed and documented today by members of the health care team. A total time of 15+ minutes was spent obtaining information from the patient and discussing options to address the patient's social risk factors and unmet needs. Social Drivers of Health with Concerns Concerns Present Financial Resource Strain: Medium Risk (02/22/2025) Physical Activity: Insufficiently Active (02/22/2025) documented in this encounter [facility] 02-22-2025 Instructions IRISH Ramirez CNP - 02/22/2025 1:00 PM EDT Personalized Preventative Plan for Yue Ibrahim - 02/22/2025 Medicare offers a range of preventative health benefits. Some of the tests and screenings are paid in full while others may be subject to a deductible, co-insurance, and / or copay. Some of these benefits include a comprehensive review of your medical history including lifestyle, illnesses that may run in your family, and various assessments and screenings as appropriate. After reviewing your medical record and screening and assessments performed today, your provider may have ordered immunizations, labs, imaging, and / or referrals for you. A list of these orders (if applicable) as well as your Preventative Care list are included within your After Visit Summary for your review. Other Preventative Recommendations: A preventive eye exam by an sustainability specialist is recommended every 1-2 years to screen for glaucoma, cataracts, macular degeneration, and other eye disorders. A preventive dental visit is recommended every 6 months. Try to get at least 150 minutes of exercise per week or 10,000 steps per day on a pedometer. You need 1200-1500mg of calcium and 0711-6884 international units of vitamin D per day. It is possible to meet your calcium requirement with diet alone, but a vitamin D supplement is usually necessary to meet this goal. When exposed to the sun, use a sunscreen that protects against both UVA and UVB radiation with an SPF of 30 or greater. Reapply every 2-3 hours or after sweating, drying off with a towel, or swimming. Always wear a seat belt when traveling in a car. Always wear a helmet when riding a bicycle or a motorcycle The following attachments cannot be sent through Care Everywhere.Preventing Falls in Older Adults ([place]anaian)Jody, ADULT ([place]anaian)documented in this encounter [facility] [employer] 02-22-2025 Instructions IRISH Ramirez CNP - 02/22/2025 1:00 PM EDT Personalized Preventative Plan for Yue Ibrahim - 02/22/2025 Medicare offers a range of preventative health benefits. Some of the tests and screenings are paid in full while others may be subject to a deductible, co-insurance, and / or copay. Some of these benefits include a comprehensive review of your medical history including lifestyle, illnesses that may run in your family, and various assessments and screenings as appropriate. After reviewing your medical record and screening and assessments performed today, your provider may have ordered immunizations, labs, imaging, and / or referrals for you. A list of these orders (if applicable) as well as your Preventative Care list are included within your After Visit Summary for your review. Other Preventative Recommendations: A preventive eye exam by an sustainability specialist is recommended every 1-2 years to screen for glaucoma, cataracts, macular degeneration, and other eye disorders. A preventive dental visit is recommended every 6 months. Try to get at least 150 minutes of exercise per week or 10,000 steps per day on a pedometer. You need 1200-1500mg of calcium and 4862-1120 international units of vitamin D per day. It is possible to meet your calcium requirement with diet alone, but a vitamin D supplement is usually necessary to meet this goal. When exposed to the sun, use a sunscreen that protects against both UVA and UVB radiation with an SPF of 30 or greater. Reapply every 2-3 hours or after sweating, drying off with a towel, or swimming. Always wear a seat belt when traveling in a car. Always wear a helmet when riding a bicycle or a motorcycle The following attachments cannot be sent through Care Everywhere.Preventing Falls in Older Adults ([place]ian)Jody, ADULT ([place]ian)documented in this encounter [facility] 02-22-2025 Miscellaneous Notes Associate d Problem(s): Diabetes mellitus type 2 in obese (HCC) - Chronic. Not at goal. Discussed increasing Trulicity to 4.5 mg weekly pending A1c result today. - Continue Metformin as prescribed. Orders: Microalbumin / creatinine urine ratio; Future Lipid panel; Future Hemoglobin A1c; Future Comprehensive metabolic panel; Future Diabetes Foot Exam; Future Continuous Glucose Dry Cans Operator ([employer] Bolivar 3 [place]) device; Use as directed Continuous Glucose Sensor (FreeStyle Bolivar 3 Sensor) misc; every 14 (fourteen) days. Associated Problem(s): CHF (congestive heart failure) (HCC) - Chronic, stable. Follow up with specialist as directed. - Continue Metoprolol and Entresto as prescribed. Orders: Lipid panel; Future Comprehensive metabolic panel; Future Associated Problem(s): Class 3 severe obesity due to excess calories with serious comorbidity and body mass index (BMI) of 40.0 to 44.9 in adult - Encouraged a healthy diet and regular exercise. - Discussed increasing Trulicity to 4 mg weekly pending lab results from today for additional weight loss potential and better management of diabetes. Orders: Comprehensive metabolic panel; Future Associated Problem(s): Neuropathy of both feet - Chronic. Stable with Gabapentin. Will continue current treatment plan. Orders: Comprehensive metabolic panel; Future Handicap Placard gabapentin (Neurontin) 100 MG capsule; Take 1 capsule (100 mg) by mouth 2 times daily. Associated Problem(s): Insomnia - Chronic. Not at goal. Will start on PRN Trazodone for sleep. - Information provided in AVS on new medication. Orders: Comprehensive metabolic panel; Future traZODone (Desyrel) 50 MG tablet; Take 1 tablet (50 mg) by mouth Nightly as needed for sleep. Associated Problem(s): Hypothyroidism - Chronic. Stable with Levothyroxine. Will continue current treatment plan. Orders: TSH; Future Comprehensive metabolic panel; Future Associated Problem(s): Atherosclerosis of coronary artery - Chronic, stable. Follow up with specialist as directed. - Continue Atorvastatin as prescribed. Orders: Lipid panel; Future Comprehensive metabolic panel; Future Associated Problem(s): Primary hypertension - Chronic. Stable with Entresto and Metoprolol. Will continue current treatment plan. Orders: Comprehensive metabolic panel; Future Associated Problem(s): Presence of stent in coronary artery - Chronic, stable. Follow up with specialist as directed. - Continue Atorvastatin and Plavix as prescribed. Orders: Lipid panel; Future Comprehensive metabolic panel; Future Associated Problem(s): Hyperlipidemia - Chronic. Stable with Atorvastatin. Will continue current treatment plan. Orders: Lipid panel; Future Comprehensive metabolic panel; Future Associated Problem(s): History of ST elevation myocardial infarction (STEMI) - Chronic, stable. Follow up with specialist as directed. - Continue Metoprolol and Atorvastatin as prescribed. Orders: Lipid panel; Future Associated Problem(s): GERD (gastroesophageal reflux disease) - Chronic. Stable with Omeprazole. Will continue current treatment plan. Orders: Comprehensive metabolic panel; Future Associated Problem(s): Cardiomyopathy (HCC) - Chronic, stable. Follow up with specialist as directed. - Continue Metoprolol and Entresto as prescribed. Orders: Comprehensive metabolic panel; Future Associated Problem(s): DJD (degenerative joint disease) - Chronic. Stable with PRN use of Aleve (uses sparingly). Will continue current treatment plan. Orders: Comprehensive metabolic panel; Future Handicap Placard Associated Problem(s): Sleep apnea - Chronic. Not well controlled due to lack of use of CPAP machine. Follow up with specialist as directed. Orders: Comprehensive metabolic panel; Future documented in this encounter [facility] 02-22-2025 Miscellaneous Notes Associate d Problem(s): Diabetes mellitus type 2 in obese (HCC) - Chronic. Not at goal. Discussed increasing Trulicity to 4.5 mg weekly pending A1c result today. - Continue Metformin as prescribed. Orders: Microalbumin / creatinine urine ratio; Future Lipid panel; Future Hemoglobin A1c; Future Comprehensive metabolic panel; Future Diabetes Foot Exam; Future Continuous Glucose Dry Cans Operator (FreeStyle Bolivar 3 [place]) device; Use as directed Continuous Glucose Sensor (FreeStyle Bol[place]ar 3 Sensor) misc; every 14 (fourteen) days. Associated Problem(s): CHF (congestive heart failure) (HCC) - Chronic, stable. Follow up with specialist as directed. - Continue Metoprolol and Entresto as prescribed. Orders: Lipid panel; Future Comprehensive metabolic panel; Future Associated Problem(s): Class 3 severe obesity due to excess calories with serious comorbidity and body mass index (BMI) of 40.0 to 44.9 in adult - Encouraged a healthy diet and regular exercise. - Discussed increasing Trulicity to 4 mg weekly pending lab results from today for additional weight loss potential and better management of diabetes. Orders: Comprehensive metabolic panel; Future Associated Problem(s): Neuropathy of both feet - Chronic. Stable with Gabapentin. Will continue current treatment plan. Orders: Comprehensive metabolic panel; Future Handicap Placard gabapentin (Neurontin) 100 MG capsule; Take 1 capsule (100 mg) by mouth 2 times daily. Associated Problem(s): Insomnia - Chronic. Not at goal. Will start on PRN Trazodone for sleep. - Information provided in AVS on new medication. Orders: Comprehensive metabolic panel; Future traZODone (Desyrel) 50 MG tablet; Take 1 tablet (50 mg) by mouth Nightly as needed for sleep. Associated Problem(s): Hypothyroidism - Chronic. Stable with Levothyroxine. Will continue current treatment plan. Orders: TSH; Future Comprehensive metabolic panel; Future Associated Problem(s): Atherosclerosis of coronary artery - Chronic, stable. Follow up with specialist as directed. - Continue Atorvastatin as prescribed. Orders: Lipid panel; Future Comprehensive metabolic panel; Future Associated Problem(s): Primary hypertension - Chronic. Stable with Entresto and Metoprolol. Will continue current treatment plan. Orders: Comprehensive metabolic panel; Future Associated Problem(s): Presence of stent in coronary artery - Chronic, stable. Follow up with specialist as directed. - Continue Atorvastatin and Plavix as prescribed. Orders: Lipid panel; Future Comprehensive metabolic panel; Future Associated Problem(s): Hyperlipidemia - Chronic. Stable with Atorvastatin. Will continue current treatment plan. Orders: Lipid panel; Future Comprehensive metabolic panel; Future Associated Problem(s): History of ST elevation myocardial infarction (STEMI) - Chronic, stable. Follow up with specialist as directed. - Continue Metoprolol and Atorvastatin as prescribed. Orders: Lipid panel; Future Associated Problem(s): GERD (gastroesophageal reflux disease) - Chronic. Stable with Omeprazole. Will continue current treatment plan. Orders: Comprehensive metabolic panel; Future Associated Problem(s): Cardiomyopathy (HCC) - Chronic, stable. Follow up with specialist as directed. - Continue Metoprolol and Entresto as prescribed. Orders: Comprehensive metabolic panel; Future Associated Problem(s): DJD (degenerative joint disease) - Chronic. Stable with PRN use of Aleve (uses sparingly). Will continue current treatment plan. Orders: Comprehensive metabolic panel; Future Handicap Placard Associated Problem(s): Sleep apnea - Chronic. Not well controlled due to lack of use of CPAP machine. Follow up with specialist as directed. Orders: Comprehensive metabolic panel; Future documented in this encounter [facility] 02-22-2025 Note - Chronic. Stable wi th Omeprazole. Will continue current treatment plan. Orders: Comprehensive metabolic panel; Future [facility] 02-22-2025 Note - Chronic. Stable wi th Levothyroxine. Will continue current treatment plan. Orders: TSH; Future Comprehensive metabolic panel; Future [facility] 02-22-2025 Note - Chronic. Stable wi th Gabapentin. Will continue current treatment plan. Orders: Comprehensive metabolic panel; Future Handicap Placard gabapentin (Neurontin) 100 MG capsule; Take 1 capsule (100 mg) by mouth 2 times daily. [facility] 02-22-2025 Note - Chronic. Stable wi th Atorvastatin. Will continue current treatment plan. Orders: Lipid panel; Future Comprehensive metabolic panel; Future [facility] 02-22-2025 Note - Chronic. Stable wi th Entresto and Metoprolol. Will continue current treatment plan. Orders: Comprehensive metabolic panel; Future [facility] 02-22-2025 Note - Chronic. Stable wi th PRN use of Aleve (uses sparingly). Will continue current treatment plan. Orders: Comprehensive metabolic panel; Future Handicap Placard [facility] 01-24-2025 Telephone encount er Note Noted. Agree with recommendation. [facility] 01-24-2025 Miscellaneous Notes Formattin g of this note might be different from the original. Noted. Agree with recommendation. S: Patient called the clinical access center with complaint of severe diarrhea B: started over the weekend A: Pt complains of hourly diarrhea the last couple of days since taking her last dose of Trulicity on Thursday. She had this a few months ago and this is the first since then. She has taken Pepto bismol for sour stomach, Belching. She said since overnight last night her diarrhea is watery. She denies abdominal pain, fever or feeling too weak to stand and walk. R: I called the office back line and spoke with David Fleming. She advised ER. I called the office back line and spoke with Lucero. She advised the patient go to ER due to possible dehydration, protecting her kidneys due to her diabetes. I called th patient back and gave her RNicolas Fleming's advce. The patient want's to treat herself at home for now. She asked for some home care advice. I gave her advice but advised if she worsens please go to ER. Also, she is going to call back to see what to do about taking Fridays dose of Trulicity and let the office know how she is doing. Home care advice given to patient: FLUID THERAPY DURING MILD TO MODERATE DIARRHEA: * WATER: For mild to moderate diarrhea, water is often the best liquid to drink. You should also eat some salty foods (such as saltine crackers). This is important to make sure you are getting enough salt, sugars, and fluids to meet your body's needs. * SPORTS DRINKS: You can also drink half-strength sports drinks (such as Gatorade, Powerade) to help treat and prevent dehydration. Mix the sports drink half and half with water. Treating Diarrhea with Zouy-Alc-Qxqllwi Medicines DIARRHEA MEDICINE - LOPERAMIDE - EXTRA NOTES AND WARNINGS: * DO NOT use if there is a fever over 100.4 F (38.0 C) or if there is blood or mucus in the stools. * DO NOT drink tonic water. It can interact with loperamide and may cause a serious heart problem. * DO NOT take more than 8 mg per day (4 capsules) each day, or for longer than 2 days, unless told to do this by your doctor (or FIELD NATURALIST/PA). * Before taking any medicine, read all the instructions on the package. DIARRHEA MEDICINE - BISMUTH SUBSALICYLATE (SUCH PEPTO-BISMOL): * This medicine can help reduce diarrhea, vomiting, and abdominal cramping. It is available utvx-zvy-arixoaf (OTC) in a drugstore. * Adult dosage: Take two Pepto-Bismol caplets or tablets, or take two tablespoons (30 ml total) of Pepto-Bismol original strength liquid, by mouth every hour (if diarrhea continues) to a maximum of 8 doses in a 24 hour period. * Do not use for more than 2 days Reason for Disposition SEVERE diarrhea (e.g., 7 or more times / day more than normal) and age > 60 years Protocols used: [id number] documented in this encounter [facility] 01-24-2025 Telephone encount er Note S: Patient called the clinical access center with complaint of severe diarrhea B: started over the weekend A: Pt complains of hourly diarrhea the last couple of days since taking her last dose of Trulicity on Thursday. She had this a few months ago and this is the first since then. She has taken Pepto bismol for sour stomach, Belching. She said since overnight last night her diarrhea is watery. She denies abdominal pain, fever or feeling too weak to stand and walk. R: I called the office back line and spoke with David Fleming. She advised ER. I called the office back line and spoke with Lucero. She advised the patient go to ER due to possible dehydration, protecting her kidneys due to her diabetes. I called th patient back and gave her David Fleming's advce. The patient want's to treat herself at home for now. She asked for some home care advice. I gave her advice but advised if she worsens please go to ER. Also, she is going to call back to see what to do about taking Fridays dose of Trulicity and let the office know how she is doing. Home care advice given to patient: FLUID THERAPY DURING MILD TO MODERATE DIARRHEA: * WATER: For mild to moderate diarrhea, water is often the best liquid to drink. You should also eat some salty foods (such as saltine crackers). This is important to make sure you are getting enough salt, sugars, and fluids to meet your body's needs. * SPORTS DRINKS: You can also drink half-strength sports drinks (such as Gatorade, Powerade) to help treat and prevent dehydration. Mix the sports drink half and half with water. Treating Diarrhea with Gumc-Iir-Mudbdnu Medicines DIARRHEA MEDICINE - LOPERAMIDE - EXTRA NOTES AND WARNINGS: * DO NOT use if there is a fever over 100.4 F (38.0 C) or if there is blood or mucus in the stools. * DO NOT drink tonic water. It can interact with loperamide and may cause a serious heart problem. * DO NOT take more than 8 mg per day (4 capsules) each day, or for longer than 2 days, unless told to do this by your doctor (or FIELD NATURALIST/PA). * Before taking any medicine, read all the instructions on the package. DIARRHEA MEDICINE - BISMUTH SUBSALICYLATE (SUCH PEPTO-BISMOL): * This medicine can help reduce diarrhea, vomiting, and abdominal cramping. It is available vydy-cwk-lblcwip (OTC) in a drugstore. * Adult dosage: Take two Pepto-Bismol caplets or tablets, or take two tablespoons (30 ml total) of Pepto-Bismol original strength liquid, by mouth every hour (if diarrhea continues) to a maximum of 8 doses in a 24 hour period. * Do not use for more than 2 days Reason for Disposition SEVERE diarrhea (e.g., 7 or more times / day more than normal) and age > 60 years Protocols used: [id number] [facility] 01-24-2025 Miscellaneous Notes Formattin g of this note might be different from the original. NOTED Refill sent. Please make notation that we will need an updated CS MA on file to obtain in her next appointment Reviewed chart. Refill appropriate. RX sent. Prescription Request: Last medication check: 06/27/2024 Last physical exam: 01/08/2024 Next scheduled appointment: 02/22/2025 CSA on file (date): 08/24/2023 Last urine drug screen: none Last date of refill on this medication: 12/15/2024 documented in this encounter [facility] 01-24-2025 Telephone encount er Note NOTED [facility] 01-23-2025 Telephone encount er Note Refill sent. Please make notation that we will need an updated CS MA on file to obtain in her next appointment [facility] 01-23-2025 Telephone encount er Note Reviewed chart. Refill appropriate. RX sent. [facility] 01-23-2025 Miscellaneous Notes Formattin g of this note might be different from the original. Refill sent. Please make notation that we will need an updated CS MA on file to obtain in her next appointment Reviewed chart. Refill appropriate. RX sent. Prescription Request: Last medication check: 06/27/2024 Last physical exam: 01/08/2024 Next scheduled appointment: 02/22/2025 CSA on file (date): 08/24/2023 Last urine drug screen: none Last date of refill on this medication: 12/15/2024 documented in this encounter [facility] 01-23-2025 Telephone encount er Note Duplicate request [facility] 01-23-2025 Miscellaneous Notes Formattin g of this note might be different from the original. Duplicate request Medication name: gabapentin (Neurontin) 100 MG capsule Medication dosage: 100 mg (Miligrams Monthly quantity needed: 60 How many day supply requestin days Medication route: oral (PO) Medication administration time(s): 2 times a day (BID) If taking medication PRN, reason for taking medication: N/A If this is a controlled substance do you receive this or any other controlled medication from any other doctor or facility: N/A Ordering provider: Debbie Date of last office visit: 06/27/24 Date of next office visit: 02/22/25 Date of last refill: (see medication tab): 12/15/24 Updated/Validated preferred pharmacy: Yes Patient instructed to contact the pharmacy prior to picking up the medication: Yes [facility] [address] [place] [address] documented in this encounter [facility] 01-23-2025 Telephone encount er Note Medication name: gabapentin (Neurontin) 100 MG capsule Medication dosage: 100 mg (Miligrams Monthly quantity needed: 60 How many day supply requestin days Medication route: oral (PO) Medication administration time(s): 2 times a day (BID) If taking medication PRN, reason for taking medication: N/A If this is a controlled substance do you receive this or any other controlled medication from any other doctor or facility: N/A Ordering provider: Debbie Date of last office visit: 06/27/24 Date of next office visit: 02/22/25 Date of last refill: (see medication tab): 12/15/24 Updated/Validated preferred pharmacy: Yes Patient instructed to contact the pharmacy prior to picking up the medication: Yes [facility] [address] [place] [address] [facility] 01-23-2025 Telephone encount er Note Prescription Request: Last medication check: 06/27/2024 Last physical exam: 01/08/2024 Next scheduled appointment: 02/22/2025 CSA on file (date): 08/24/2023 Last urine drug screen: none Last date of refill on this medication: 12/15/2024 [facility] [employer] 12-21-2024 Progress note [facility] 12-21-2024 Progress note Note Date/Time December 21, 2024 2:51pm [facility] [address] [place] [address]. [address] [place] [address] OFFICE VISIT Date of Service: 12/21/24 MR#: [id number] Acct: [id number] Name: YUE IBRAHIM Rep #: [id number] : 1960 Provider: Dr. Alexx Sarabia MD Age/Sex: 64/F Location: [facility] Status: Signed HPI HPI History of Present Illness Details: This lady with history of nonischemic cardiomyopathy, diagnosed on cardiac MRI, coronary artery disease status post percutaneous intervention with drug-eluting stents to the left circumflex and recently to the right posterior lateral ventricular branch is here for follow-up visit. Occasional chest discomfort that she describes as sharp, lasting a few seconds only. Some shortness of breath with moderate to strenuous exertion. Denies orthopnea or PND. No ankle edema. Denies any palpitations. Intake Vital Signs 12/05/24 07:49 12/21/24 08:52 Height 5 ft 4 in 5 ft 4 in Weight: 244 lb BMI 41.8 BP 99/68 Blood Pressure Location Lt brachial Position Sitting Respiration 18 Pulse 88 Pulse Source NIBP Intake Visit Reasons: S/P [facility] 12/05 Social Worker Required: No Accompanied by: Significant Other Is patient in pain?: No Allergies clindamycin Allergy (Verified 12/21/24 14:28) Hives erythromycin base Allergy (Verified 12/21/24 14:28) Hives nitrofurantoin macrocrystalline (From Macrodantin) Allergy (Verified 12/21/24 14:28) Hives Sulfa (Sulfonamide Antibiotics) Allergy (Verified 12/21/24 14:28) Hives sulfamethoxazole (From Septra) Allergy (Verified 12/21/24 14:28) Hives trimethoprim (From Septra) Allergy (Verified 12/21/24 14:28) Hives dapagliflozin (From [facility]) Adverse Reaction (Intermediate, Verified 12/21/24 14:28) Yeast Infection lisinopril Adverse Reaction (Intermediate, Verified 12/21/24 14:28) Dry Hacking Cough Medications ?Medication ?Instructions ?Recorded ?Confirmed ?Type aspirin 81 mg chewable tablet 81 mg PO DAILY@0800 02/10/0212/21/24 History coenzyme Q10 100 mg capsule 100 mg PO DAILY 08/02/18 0 12/21/24 History metformin 1,000 mg tablet 1,000 mg PO BID #0 tabs 09/1912/21/24 Rx Held on 12/05/24. Instructions: Resume on 12/08/24. metoprolol tartrate 100 mg tablet 100 mg PO BID 12/21/24 History atorvastatin 40 mg tablet 40 mg PO QHS #90 tabs 12/21/24 Rx ascorbic acid (vitamin C) 500 mg 500 mg PO DAILY 05/1612/21/24 History tablet clopidogrel 75 mg tablet 75 mg PO DAILY #90 tabs 12/1812/21/24 Rx levothyroxine 50 mcg tablet 50 mcg PO DAILY 10/21/21 0 12/21/24 History nitroglycerin 0.4 mg sublingual 0.4 mg sublingual Q5M PRN Chest 03/27/23 12/21/24 Rx tablet Pain #25 tabs omeprazole 20 mg capsule,delayed 20 mg PO DAILY 12/21/24 History release gabapentin 100 mg capsule 200 mg PO BID 01/04/2412/21 History sacubitril 49 mg-valsartan 51 mg 1 tab PO BID #180 tab s 10/18/24 12/21/24 Rx tablet (Entresto) dulaglutide 3 mg/0.5 mL 3 mg subcut QWEEK 11/07/24 0 12/21/24 History subcutaneous pen injector (Trulicity) furosemide 40 mg tablet (Lasix) 40 mg PO DAILY swellin g #30 tabs 12/05/24 12/21/24 Rx isosorbide mononitrate 30 mg 30 mg PO DAILY #30 tabs 0 12/05/24 12/21/24 Rx tablet,extended release 24 hr Ejection fraction %: 35 Have you fallen in the past year?: No PFSH Medical History Abnormal stress test Atherosclerotic heart disease of [place] coronary artery without angina pectoris Bronchitis Cardiomyopathy Chest pain Chest pain, rule out acute myocardial infarction Coronary artery disease Diabetes mellitus SALMERON (dyspnea on exertion) Dyslipidemia Endometrial hyperplasia without atypia, simple Essential hypertension GERD (gastroesophageal reflux disease) History of PSVT (paroxysmal supraventricular tachycardia) HTN (hypertension) Hypothyroidism Mixed hyperlipidemia NSTEMI (non-ST elevated myocardial infarction) Obesity Obesity, morbid, BMI 40.0-49.9 Obstructive sleep apnea HUSSEIN (obstructive sleep apnea) Screening for colorectal cancer Supraventricular tachycardia Varicose veins of right lower extremity Surgical History H/O prior ablation treatment (04/07/17) History of History of cardiac radiofrequency ablation (~04/07/17) History of hysterectomy History of left heart catheterization (05/04/23) History of total right knee replacement (TKR) (~06/2014) Stented coronary artery (12/05/24) Family History Grandmother CVA (cerebral vascular accident) Mother CAD (coronary artery disease) A-fib Heart disease Father Heart disease Hypertension Cancer Lung CA Sister Fibromyalgia Sister Myocardial infarction Diabetes CAD (coronary artery disease) Brother Myocardial infarction CAD (coronary artery disease) Diabetes Brother Cancer Asthma Aunt Colon cancer Uncle Colon cancer Diabetes Social History household members: spouse Smoking Status: Never smoker alcohol intake: never substance use type: does not use caffeine: Yes Type: carbonated beverages and coffee what type of physical activity do you participate in: none seatbelt use: always do you feel safe at home: Yes ROS Const Const: Positive for fatigue and weakness; Negative for headache(s) or weight gain ENT ENT: Negative for headache(s), dizziness, Nosebleed/epistaxis or balance problems Cardio Chest Pain: Yes Frequency: other Location: mid sternal Duration: brief Exacerbation: exercise Relieving: rest Palpitations: No Edema: None Muscle aches with walking: None Resp Respiratory: Positive for SOB with activity (improving since last ov); Negative for SOB at rest, SOB orthopneaundefinedSOB lying down or paroxysmal nocturnal dyspnea GI GI: Negative nausea, vomiting or heartburn Musc Musc: Negative for muscle aches/ myalgia, muscle weakness, joint pain or balanceproblems Neuro Neuro: Positive for weakness; Negative for dizziness, lightheadedness, near syncope, syncope or headache(s) Endo Endo: Positive for fatigue Cardiology Exam Const Appearance: comfortable and no acute distress Nutritional Appearance: obese Neck Neck: no JVD Carotids: Negative bruit Chest Auscultation: Bilateral: Clear to Auscultation Cardio Rate: regular rate Rhythm: regular rhythm Heart sounds: S1 normal and S2 normal GI GI: obese Neuro General: patient alert, patient awake and patient oriented x3 Extremities Lower Extremity Edema: None: Bilateral Supplemental Info Supplemental Information Echocardiogram 01/26/2024: Interpretation Summary Mildly dilated left ventricular cavity. Moderate generalized hypokinesis. Estimated LVEF 35 to 40%. Mild (1+) mitral valve insufficiency. Aortic sclerosis, no stenosis. Mildly dilated aortic root. Stress Test Report 01/26/2024: Impression: 1. Pharmacologic (Regadenoson) evaluation 2. Peak pharmacologic ECG with no diagnostic ischemic changes. 3. There were no cardiac dysrhythmias pretest, during pharmacologic infusion, or recovery. 5. A very small reversible perfusion defect of the apex suggestive of mild ischemia. 6. The gated Cardiolite study reports an LVEF of 21%. The left ventricular cavity appears dilated. Cardiac MRI 04/05/2024: Impression: -The left ventricle is normal in size. (LV EDVi = 72 ml/m2). The left ventricular systolic function is moderately decreased (LV EF = 40%). -The right ventricle is normal in size (RV EDVi = 49 ml/m2). The right ventricular systolic function is mildly decreased (RV EF = 43%). -Late gadolinium enhancement (LGE) sequences indicated the presence of a well circumscribed area of near transmural LGE involving the mid anterolateral wall of the left ventricle. 2 other small areas of discrete punctate LGE as seen involving the basal, mid inferolateral [place] of the left ventricle. There is also linear mid myocardial LGE involving the inferior septum. The pattern is nonischemic. No suggestion of hypertrophic cardiomyopathy/amyloidosis. Differentials for this pattern include possible sarcoidosis, prior myocarditis. Familial cardiomyopathies are less likely. Correlate with genetic testing if clinically indicated. -No definite mediastinal lymphadenopathy is seen. -Mild central mitral regurgitation seen. Regurgitant volume = 8cc, regurgitant fraction = 12%. -The patient has not had a prior CC cardiac MR exam for comparison. Cardiac Cath 12/05/2024: PROCEDURE(S) PERFORMED DC02-(00101)LHC/COR IC12-(13244/C9600)JULIA W/WO PTCA, SINGLE CORONARY ARTERY CLINICAL PROFILE AND CO-MORBIDITIES Indications: Other Heart Failure: NYHA Class: 2, Newly Diagnosed: No, Heart Failure Type: Systolic Stress/Imaging Stress Test w/SPECT MPI: Yes Result: Positive Intermediate Risk Stress Test with SPECT MPI: Positive Intermediate Risk CAD Presentations: Other: Dyspnea on exertion CONCLUSIONS 40% Mid LAD; 60% D1 Stent to Mid LCX patent 30% Prox RCA; 70% Prox RPLV, 70% Mid RPLV Successful JULIA Mid RPLV using Abdiel Highland 2.5x26 mm Successful JULIA Prox RPLV using Mcloud Highland 2.75x12 mm RECOMMENDATIONS ASA Indefinitley P2Y12 inhibitors for atleast 6 months Risk factor modification Cardiac Catheterization 05/04/2023: CONCLUSIONS 80% Mid LCX Stent to Prox RPLV patent, Mid RPLV 50% Successful JULIA Mid LCX using Resolute Mcloud 2.5x8 mm CORONARY ANGIOGRAPHY DOMINANCE: Right Dominant LEFT HEART ASSESSMENT Left Ventricular Ejection Fraction: by LV Gram 40 % LVEDP: 141 mmHg LEFT ANTERIOR DESCENDING ARTERY: LAD: Tubular 20% Mid lesion in LAD CIRCUMFLEX ARTERY: CIRCUMFLEX: Tubular 80% Mid lesion in Circumflex RIGHT CORONARY ARTERY: RCA: Tubular 30% Proximal lesion in RCA Tubular 30% Distal lesion in RCA RPLS: Tubular 50% Mid lesion in RPL1 INTERVENTION INFORMATION LESION SITE: Circumflex (Mid) Lesion Complexity: Non-High/Non-C, lesion length: 6 mm Pre Stenosis: 80 % Pre intervention MARISOL flow: 3 PROCEDURE: Drug Eluting Stent with post dilatation Post Stenosis: 0 % Post intervention MARISOL flow: 3 Lesion Devices: Cordis 6 Fr XB3.0 100cm Guide Catheter Terumo .014 180cm Runthrough Extra Floppy straight Medtronic Resolute Abdiel RX JULIA 2.5x08 Amauri Sci NC EMERGE MR 2.50x08 BALLOON 24 Hour Holter Monitor 01/26/2024: NSR with frequent PACs noted Average HR was 79 bpm; Min HR was 56 bpm in Sinus Bradycardia; Max HR was 106 bpm in Sinus Rhythm. The longest R-R interval was 1.5 seconds. There were a total of 2150 premature ventricular ectopic isolated beats, comprising of 1.9% of the total QRS complexes. 1 couplet, 85 trigeminal beats. 1couplet noted. There were a total of 4447 premature supraventricular ectopic isolated beats, comprising of 3.9% of the total QRS complexes. 52 atrial couplets, 342 trigeminal beats. The patient kept a diary with it noting Too many heart palps to write down Chest CT Scan without Contrast 09/21/2024: IMPRESSION: Coronary artery calcification. No evidence of sarcoidosis. Assessment and Plan Assessment and Plan (1) Coronary artery disease: Status: Chronic Comment: History of drug-eluting stent to the RCA in 2019. JULIA to the left circumflex xx9668. JULIA to the right posterior lateral ventricular branch last month. Plan: Aspirin and Plavix. Risk factor modification. (2) Stented coronary artery: Status: Chronic Comment: Successful 2.75 x 12 Resolute JULIA to the right PL per Dr. Castellon @ [facility],JULIA MidLCX using Resolute Abdiel 2.5x8 mm 05/04/23 : Abdiel Highland JULIA: 2.5X 26 mm to MIDRPLV, and 2.75 X 12 to Proximal RPLV 12/05/2024 Plan: Aspirin and Plavix. (3) History of PSVT (paroxysmal supraventricular tachycardia): Status: Resolved Comment: Status post ablation in 2017. Plan: Beta-blockers. (4) Cardiomyopathy: Status: Chronic Qualifiers: Cardiomyopathy type: unspecified Qualified Code(s): I42.9 - Cardiomyopathy, unspecified Plan: EF 35-40% on echocardiogram. MRI suggestive of nonischemic cardiomyopathy. CT scan chest negative for sarcoidosis. Continue Entresto. Change metoprolol to metoprolol extended release 200 mg daily. (5) Essential hypertension: Status: Chronic Plan: Beta-blockers. Entresto. Blood pressure borderline. DC Imdur. (6) Dyslipidemia: Status: Chronic Plan: Atorvastatin. (7) Diabetes mellitus: Status: Chronic Plan: As per primary care physician. (8) HUSSEIN (obstructive sleep apnea): Status: Chronic Plan: Per patient, she cannot tolerate CPAP. Follow as per sleep medicine. (9) Obesity: Status: Chronic Plan: Lose weight. Patient on dulaglutide. Plan Details Follow Up: 6 Months Coding Level of Care Code Off vis,est,level 4 Diagnoses Coronary artery disease I25.10 Stented coronary artery Z95.5 History of PSVT (paroxysmal supraventricular tachycardia) Z86.79 Cardiomyopathy, unspecified type I42.9 Cardiomyopathy type: unspecified Essential hypertension I10 Dyslipidemia E78.5 Diabetes mellitus E11.9 HUSSEIN (obstructive sleep apnea) G47.33 Obesity E66.9 Coding Level of Care Code Off vis,est,level 4 Diagnoses Coronary artery disease I25.10 Stented coronary artery Z95.5 History of PSVT (paroxysmal supraventricular tachycardia) Z86.79 Cardiomyopathy, unspecified type I42.9 Cardiomyopathy type: unspecified Essential hypertension I10 Dyslipidemia E78.5 Diabetes mellitus E11.9 HUSSEIN (obstructive sleep apnea) G47.33 Obesity E66.9 Clinical Quality Measures Falls Risk Screening/Assistive Devices Have you fallen in the past year?: No Cardiac Ejection fraction %: 35 12/21/24 1451 <Electronically signed by Esdras Sarabia MD> Date _ Esdras Sarabia MD Cosigner Signature: Date (if applicable) CC: ABDI Castanon ~ [employer] Work Phone: 1(858) 654-110705-20-2025 Consult note [facility] Medical Records Department [address] [place] [address] Counseling Note - Pharmacy 12/05/24 1334 MR#: [id number] Acct: [id number] Name: YUE IBRAHIM Rep #:[id number] : 1960 64 From: Barbara Gonzalez PCP: ABDI Day Status:ADM ALYSSA Y Location: [place] [address] Pharmacy [place] Med Reconciliation Pharmacy Service has performed discharge medication reconciliation for this patient. The patient's discharge medication list was reviewed for discrepancies and discrepancies were resolved. Medications at Discharge Home Medications aspirin 81 mg chewable tablet 81 mg PO DAILY@0800 09/11/15 coenzyme Q10 100 mg capsule 100 mg PO DAILY 08/02/18 metformin 1,000 mg tablet 1,000 mg PO BID #0 tabs 10/16/18 Held on 12/05/24. Instructions: Resume on 12/08/24. metoprolol tartrate 100 mg tablet 100 mg PO BID 07/29/19 atorvastatin 40 mg tablet 40 mg PO QHS #90 tabs 11/02/19 ascorbic acid (vitamin C) 500 mg tablet 500 mg PO DAILY 05/16/20 clopidogrel 75 mg tablet 75 mg PO DAILY #90 tabs 12/28/20 levothyroxine 50 mcg tablet 50 mcg PO DAILY 10/21/21 nitroglycerin 0.4 mg sublingual tablet 0.4 mg sublingual Q5M PRN Chest Pain #25 tabs 03/27/23 omeprazole 20 mg capsule,delayed release 20 mg PO DAILY 04/23/23 gabapentin 100 mg capsule 200 mg PO BID 01/04/24 sacubitril 49 mg-valsartan 51 mg tablet (Entresto) 1 tab PO BID #180 tabs 10/18/24 dulaglutide 3 mg/0.5 mL subcutaneous pen injector (Trulicity) 3 mg subcut QWEEK 11/07/24 furosemide 40 mg tablet (Lasix) 40 mg PO DAILY swelling #30 tabs 12/05/24 isosorbide mononitrate 30 mg tablet,extended release 24 hr 30 mg PO DAILY #30 tabs 12/05/24 12/05/24 1334 Date _ Barbara Oneill Signature (if applicable): Date CC: ~ Signed [facility]05-19-2025 Consult note Author Barbara Gonzalez [facility] Note Date/Time December 06, 2024 10:01 am [facility] Medical Records Department [address] [place] [address] Counseling Note - Pharmacy 12/05/24 1334 MR#: [id number] Acct: [id number] Name: YUE IBRAHIM Rep #:[id number] : 1960 64 From: Barbara Gonzalez PCP: ABDI Day Status:ADM ALYSSA Y Location: [place] [address] Pharmacy PA Med Reconciliation Pharmacy Service has performed discharge medication reconciliation for this patient. The patient's discharge medication list was reviewed for discrepancies and discrepancies were resolved. Medications at Discharge Home Medications aspirin 81 mg chewable tablet 81 mg PO DAILY@0800 09/11/15 coenzyme Q10 100 mg capsule 100 mg PO DAILY 08/02/18 metformin 1,000 mg tablet 1,000 mg PO BID #0 tabs 10/16/18 Held on 12/05/24. Instructions: Resume on 12/08/24. metoprolol tartrate 100 mg tablet 100 mg PO BID 07/29/19 atorvastatin 40 mg tablet 40 mg PO QHS #90 tabs 11/02/19 ascorbic acid (vitamin C) 500 mg tablet 500 mg PO DAILY 05/16/20 clopidogrel 75 mg tablet 75 mg PO DAILY #90 tabs 12/28/20 levothyroxine 50 mcg tablet 50 mcg PO DAILY 10/21/21 nitroglycerin 0.4 mg sublingual tablet 0.4 mg sublingual Q5M PRN Chest Pain #25 tabs 03/27/23 omeprazole 20 mg capsule,delayed release 20 mg PO DAILY 04/23/23 gabapentin 100 mg capsule 200 mg PO BID 01/04/24 sacubitril 49 mg-valsartan 51 mg tablet (Entresto) 1 tab PO BID #180 tabs 10/18/24 dulaglutide 3 mg/0.5 mL subcutaneous pen injector (Trulicity) 3 mg subcut QWEEK 11/07/24 furosemide 40 mg tablet (Lasix) 40 mg PO DAILY swelling #30 tabs 12/05/24 isosorbide mononitrate 30 mg tablet,extended release 24 hr 30 mg PO DAILY #30 tabs 12/05/24 12/05/24 1334 <Electronically signed by Barbara Gonzalez> Date _ Barbara Gonzalez Cosigner Signature (if applicable): Date CC: ~ Signed [facility] Work Phone: 1(777) 340-592505-19-2025 Discharge summary Author Esdras Sarabia [facility] Note Date/Time December 05, 2024 12:45 pm [facility] Medical Records Department [address] [place] [address] Instructions for Home/Discharge Instructions 12/05/24 1244 MR#: [id number] Acct: [id number] Name: YUE IBRAHIM Rep #:[id number] : 1960 64 From: Esdras Sarabia MD PCP: ABDI Day [place] [facility] [place] Instructions Diet Discharge Diet: 1999 Calorie Control Diet DC O2, CPAP, BIPAP needs Home O2 Discharge instructions: No Dressing / Incision Discharge Activity: - (No heavy lifting bending or strenuous physical activity for 1 week) May resume sexual activity in: 1-2 weeks Dressing / Incision Call your doctor if your incision/area has: Continuous Slow Oozing, Sudden Increased Bleeding, Increased Pain/ Swelling, Increased Redness, Foul Smelling Discharge and Swelling at the incision site Call your doctor if you observe: Fever of 101 or Higher, Coldness, Increased Pain and Numbness or Tingling Follow Up Care Please Follow Up With: Esdras Sarabia MD When: 2-4 weeks Test Results: Test results from this visit will be discussed in further detail at your follow- up appointment, if applicable. Discharge Plan Admission Attending Provider: Esdras Sarabia Primary Care Provider: Rafaela Castanon NP Instructions Print Language: Ghanaian Discharge Orders/Prescriptions Prescriptions: Continued coenzyme Q10 100 mg capsule 100 mg PO DAILY atorvastatin 40 mg tablet 40 mg PO QHS Qty: 90 3RF ascorbic acid (vitamin C) 500 mg tablet 500 mg PO DAILY clopidogrel 75 mg tablet 75 mg PO DAILY Qty: 90 3RF levothyroxine 50 mcg tablet 50 mcg PO DAILY nitroglycerin 0.4 mg tablet, sublingual 0.4 mg SUBLINGUAL Q5M PRN (Reason: Chest Pain) Qty: 25 0RF omeprazole 20 mg capsule,delayed release(DR/EC) 20 mg PO DAILY gabapentin 100 mg capsule 200 mg PO BID Trulicity 3 mg/0.5 mL pen injector 3 mg subcut QWEEK Patient Comments: [NO ORIGINAL SIG] aspirin 81 MG tablet,chewable 81 mg PO DAILY@0800 metoprolol tartrate 100 mg tablet 100 mg PO BID sacubitril-valsartan [Entresto] 49-51 mg tablet 1 tab PO BID Qty: 180 3RF Changed furosemide [Lasix] 40 mg tablet 40 mg PO DAILY Qty: 30 6RF isosorbide mononitrate 30 mg tablet extended release 24 hr 30 mg PO DAILY Qty: 30 6RF Held metformin 1,000 mg tablet 1,000 mg PO BID Qty: 0 0RF Hold Instructions: Resume on 12/08/24. Referrals / Follow Up: Rafaela Castanon NP, FIELD NATURALIST-C [Primary Care Provider] - Disposition Disposition (needs filled in before D/C Order can be placed): Home, Self Care 12/05/24 1245<Electronically signed by Esdras Sarabia MD>Esdras Sarabia MD CC: FIELD NATURALIST-C Rafaela Castanon ~ Signed [facility] Work Phone: 1(466) 735-328705-19-2025 Study report [facility] Cardiac Rehab [address] [place] [address] CR: Phase I Education Summary MR#: [id number] Acct: [id number] Name: YUE IBRAHIM Rep #:[id number] : 1960 64 From: Joaquina simpsons PCP: ABDI Day DOS: 12/05/24 General Education Discussed with Patient CAD and cardiac anatomy and function:: Patient communicates acknowledgment Explanation of diagnoses and procedures:: Patient communicates acknowledgment Sign/Symptoms of WA:: Patient communicates acknowledgment Antiplatelet therapy: Patient communicates acknowledgment Proper use of NTG-SL: Patient communicates acknowledgment Emergency procedures and activation of EMS: Patient communicates acknowledgment Compliance of all prescribed medications: Patient communicates acknowledgment Smoking Risk Factors Patient Nicotine/Smoking Risk Factors Are:: Non-smoker Recommendations Recommendations Include:: Second-hand smoke recommendation Response Code Nicotine/Smoking Response Code:: Patient communicates acknowledgment Dyslipidemia Recommendations Recommendations Include:: Lipid profile not available Response Code Dyslipidemia Response Code:: Patient communicates acknowledgment Overweight/Obesity Risk Factors Patient Overweight/Obesity Risk Factors Are:: Obesity - > or = 30 Recommendations Recommendations Include:: Weight loss of 5-10%, Reduced calorie diet and Exercise 5-7 times/week Response Code Overweight/Obesity:: Patient communicates acknowledgment Hypertension Recommendations Recommendations Include:: BP <130/80 if diabetic Response Code Hypertension:: Patient communicates acknowledgment Heart Disease Risk Factors Patient Heart Disease Risk Factors Are:: Family history of heart disease < 65 years old Recommendations Recommendations Include:: Educated family members of their risk Response Code Heart Disease Response Code:: Patient communicates acknowledgment Diabetes Recommendations Recommendations Include:: Maintain fasting blood sugars 70-110 md/dL, Maintain HgbA1c of 6% or less, Monitor blood sugar as prescribed, Diabetic dietary guidelines and Decrease/maintain body weight Response Code Diabetes:: Patient communicates acknowledgment Metabolic Syndrome Recommendations Recommendations Include:: Does not meet criteria Response Code Metabolic Syndrome Response Code:: Patient communicates acknowledgment Sedentary Risk Factors Patient Sedentary Risk Factors Are:: Lack of regular exercise Recommendations Recommendations Include:: Aerobic exercise 5-7 times/week for 20-30 minutes continuously, Benefits of regular exercise, Discussed home walking program and Monitored Outpatient Cardiac Rehab Response Code Sedentary Response Code:: Patient communicates acknowledgment Stress Recommendations Recommendations Include:: Identification of stressors, and assessment of coping skills and Stress management techniques Response Code Stress Response Code:: Patient communicates acknowledgment 12/05/24 1413 Date Joaquina Guillermo Outcome assessment reviewed. Exercise plan approved as documented. Treatment plan and goals support patient needs/abilities. Continue with current plan. I certify the patient demonstrates improvement and remains willing and capable of participation. the patient continues to benefit from cardiac rehab services/training. The patient may continue at current intensity, endurance andmodality and progress per protocol. Cosigner Signature: Date CC: ~ Signed [facility]05-19-2025 Discharge summary [facility] Medical Records Department [address] [place] [address] Instructions for Home/Discharge Instructions 12/05/24 1244 MR#: [id number] Acct: [id number] Name: YUE IBRAHIM Rep #:[id number] 1 : 1960 64 From: Esdras Sarabia MD PCP: ABDI Day [place] [facility] [place]charge Instructions Diet Discharge Diet: 2000 Calorie Control Diet DC O2, CPAP, BIPAP needs Home O2 Discharge instructions: No Dressing / Incision Discharge Activity: - (No heavy lifting bending or strenuous physical activity for 1 week) May resume sexual activity in: 1-2 weeks Dressing / Incision Call your doctor if your incision/area has: Continuous Slow Oozing, Sudden Increased Bleeding, Increased Pain/ Swelling, Increased Redness, Foul Smelling Discharge and Swelling at the incision site Call your doctor if you observe: Fever of 101 or Higher, Coldness, Increased Pain and Numbness or Tingling Follow Up Care Please Follow Up With: Esdras Sarabia MD When: 2-4 weeks Test Results: Test results from this visit will be discussed in further detail at your follow- up appointment, if applicable. Discharge Plan Admission Attending Provider: Esdras Sarabia Primary Care Provider: Rafaela Castanon NP Instructions Print Language: Ghanaian Discharge Orders/Prescriptions Prescriptions: Continued coenzyme Q10 100 mg capsule 100 mg PO DAILY atorvastatin 40 mg tablet 40 mg PO QHS Qty: 90 3RF ascorbic acid (vitamin C) 500 mg tablet 500 mg PO DAILY clopidogrel 75 mg tablet 75 mg PO DAILY Qty: 90 3RF levothyroxine 50 mcg tablet 50 mcg PO DAILY nitroglycerin 0.4 mg tablet, sublingual 0.4 mg SUBLINGUAL Q5M PRN (Reason: Chest Pain) Qty: 25 0RF omeprazole 20 mg capsule,delayed release(DR/EC) 20 mg PO DAILY gabapentin 100 mg capsule 200 mg PO BID Trulicity 3 mg/0.5 mL pen injector 3 mg subcut QWEEK Patient Comments: [NO ORIGINAL SIG] aspirin 81 MG tablet,chewable 81 mg PO DAILY@0800 metoprolol tartrate 100 mg tablet 100 mg PO BID sacubitril-valsartan [Entresto] 49-51 mg tablet 1 tab PO BID Qty: 180 3RF Changed furosemide [Lasix] 40 mg tablet 40 mg PO DAILY Qty: 30 6RF isosorbide mononitrate 30 mg tablet extended release 24 hr 30 mg PO DAILY Qty: 30 6RF Held metformin 1,000 mg tablet 1,000 mg PO BID Qty: 0 0RF Hold Instructions: Resume on 12/08/24. Referrals / Follow Up: Rafaela Castanon NP, FIELD NATURALIST-C [Primary Care Provider] - Disposition Disposition (needs filled in before D/C Order can be placed): Home, Self Care 12/05/24 1245Arssteven Sarabia MD CC: FIELD NATURALIST-C Rafaela Castanon ~ Signed [facility]05-14-2025 Radiology Diagnostic study note [facility] Imaging Services [address] [place] [address] Chest PA and Lateral MR#: [id number] Acct: [id number] Name: YUE IBRAHIM Rep #: [id number] : 1960 F 64 From: Larry Singh MD PCP: ABDI Day Status: REG CLI Study:Chest PA and Lateral Date of Exam: 11/29/24 Exam# [id number] Ordering Dr: Anselmo Sarabia MD PROCEDURE: CHEST PA AND LATERAL 11/29/2024 REASON FOR EXAM: CHEST PAIN, SOB TECHNIQUE: Frontal and lateral views of the chest. COMPARISON: 05/08/2023 FINDINGS: The lungs appear clear. No pleural effusion. Pulmonary vascularity appears within limits. The cardiac and mediastinal contours appear within limits and unchanged. Status post cholecystectomy again noted. Visualized osseous structures appear unchanged. RAD/Chest PA and Lateral IMPRESSION: No evidence of acute disease. Reading Location: [id number] CC: ABDI Castanon; Dr. Esdras Sarabia MD ~ Gas Cutter: Signed [facility]05-05-2025 Telephone encounter Note* Telephone Encounter - IRISH Ramirez CNP - 11/21/2024 12:16 PM EDT Noted see other TE. [id number] Miscellaneous Notes* Telephone Encounter - IRISH Ramirez CNP - 11/21/2024 12:16 PM EDT Noted see other TE. * Telephone Encounter - Farzana Pang MA - 11/21/2024 8:51 AM EDT Pt did say when I spoke with her cardiology said new medication would not have any effect on her bs * Telephone Encounter - Farzana Pang MA - 11/21/2024 8:50 AM EDT Addressed in another TE * Telephone Encounter - Moni nAgel - 11/18/2024 12:53 PM EDT Called patient no answer left detailed voicemail advised to call office back. Please relay message to patient and forward back to office. * Telephone Encounter - IRISH Ramirez CNP - 11/18/2024 10:06 AM EDT Can we please verify with Karin what dose she is currently taking of her Trulicity? 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 * Telephone Encounter - Elisabeth Chanel RN - 11/18/2024 8:43 AM EDT S: Patient spoke with CAC nurse regarding elevated glucose levels B: levels increased after she started a new medication from her internet and e business project manager group a week ago. She isnt sure of the name she is calling it isopoteronal. She was driving when she called and didn't have medications with her. A: this morning fasting glucose level was 277. Over the last week her glucose levels have been 200's to once she had a 340 result. She takes Trulicity and Metformin. She denies vomiting, shortness of breath at rest, fever. R: Patient declined office visit. She is going to call her internet and e business project manager with her concern and wantedadvice from her primary care provider. Please advise. Pharmacy and allergies verified. Reason for Disposition Blood glucose 240 - 300 mg/dL (13.3 - 16.7 mmol/L) Protocols used: Diabetes - High Blood Nxfew-YGNPR-PY documented in this [facility]05-05-2025 NoteRx sent for new dose of Trulicity to the [facility] in [place] per her request. Referral placed with [facility] group endocrinology at the [facility] location. Please be recording blood sugars twice a day at home and send in readings for review in 2 weeks after starting new dose of Trulicity.[facility]05-05-2025 Telephone encounter Note* Telephone Encounter - Farzana Pang MA - 11/21/2024 8:51 AM EDT Pt did say when I spoke with her cardiology said new medication would not have any effect on her bs [id number] Telephone encounter Note* Telephone Encounter - Farzana Pang MA - 11/21/2024 8:50 AM EDT Addressed in another TE [id number] NotePt agreed to increase Trulicity to 3mg and needs script sent to [facility] She is agreeing to endo referral but asking for [place] if possible and if not maybe [facility]05-02-2025 Telephone encounter Note* Telephone Encounter - Moni Angel - 11/18/2024 12:53 PM EDT Called patient no answer left detailed voicemail advised to call office back. Please relay message to patient and forward back to office. [id number] Telephone encounter Note* Telephone Encounter - IRISH Ramirez CNP - 11/18/2024 10:06 AM EDT Can we please verify with Karin what dose she is currently taking of her Trulicity? 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 [id number] Telephone encounter Note* Telephone Encounter - Elisabeth Chanel RN - 11/18/2024 8:43 AM EDT S: Patient spoke with CAC nurse regarding elevated glucose levels B: levels increased after she started a new medication from her internet and e business project manager group a week ago. She isnt sure of the name she is calling it isopoteronal. She was driving when she called and didn't have medications with her. A: this morning fasting glucose level was 277. Over the last week her glucose levels have been 200's to once she had a 340 result. She takes Trulicity and Metformin. She denies vomiting, shortness of breath at rest, fever. R: Patient declined office visit. She is going to call her internet and e business project manager with her concern and wantedadvice from her primary care provider. Please advise. Pharmacy and allergies verified. Reason for Disposition Blood glucose 240 - 300 mg/dL (13.3 - 16.7 mmol/L) Protocols used: Diabetes - High Blood [id number] [facility] [id number] Telephone encounter Note* Telephone Encounter - Lisbeth Bowen - 11/15/2024 10:09 AM EDT Medication name: dulaglutide (Trulicity) 1.5 MG/0.5ML Medication dosage: 1.5 mg (Miligrams Monthly quantity needed: 4 pen How many day supply requestin days Medication route: subcutaneous injection (SQ/SC) Medication administration time(s): weekly If taking medication PRN, reason for taking medication: N/A If this is a controlled substance do you receive this or any other controlled medication from any other doctor or facility: N/A Ordering provider: Lonnie Date of last office visit: 06/27/24 Date of next office visit: 01/11/25 Date of last refill: (see medication tab): 09/05/24 Updated/Validated preferred pharmacy: Yes Patient instructed to contact the pharmacy prior to picking up the medication: Yes [facility] [id number] Miscellaneous Notes* Telephone Encounter - Lisbeth Bowen - 11/15/2024 10:09 AM EDT Medication name: dulaglutide (Trulicity) 1.5 MG/0.5ML Medication dosage: 1.5 mg (Miligrams Monthly quantity needed: 4 pen How many day supply requestin days Medication route: subcutaneous injection (SQ/SC) Medication administration time(s): weekly If taking medication PRN, reason for taking medication: N/A If this is a controlled substance do you receive this or any other controlled medication from any other doctor or facility: N/A Ordering provider: Lonnie Date of last office visit: 06/27/24 Date of next office visit: 01/11/25 Date of last refill: (see medication tab): 09/05/24 Updated/Validated preferred pharmacy: Yes Patient instructed to contact the pharmacy prior to picking up the medication: Yes documented in this [facility]04-23-2025 NoteReferral placed per request.[facility]04-21-2025 Evaluation note* Diagnosis Onset Date Resolution Status Admit Date Cardiomyopathy chronic October 10:37am Dyslipidemia chronic November 07, 2024 10:37am Essential hypertension chronic [facility] 2024 10:37am HUSSEIN (obstructive sleep apnea) chroni c November 07, 2024 10:37am Stented coronary artery December 05, 2024 chronic November 07, 2024 10:37am SALMERON (dyspnea on exertion) resolved November 07, 2024 10:37am History of PSVT (paroxysmal supraventricular tachycardia) resolved [facility] 2024 10:37am Cardiomyopathy chronic December 21, 2024 1:57pm Coronary artery disease chronic J une 2024 1:57pm Diabetes mellitus chronic December 1:57pm Dyslipidemia chronic December 21 1:57pm Essential hypertension chronic [facility] 2024 1:57pm Obesity chronic December 21, 2024 1:57pm HUSSEIN (obstructive sleep apnea) chroni c December 21, 2024 1:57pm Stented coronary artery December 05, 2024 chronic December 21, 2024 1:57pm History of PSVT (paroxysmal supraventricular tachycardia) resolved [facility] 2024 1:57pm [employer] Work Phone: [phone]) 107-926804-10-2025 Telephone encounter Note* Telephone Encounter - Albina Vasquez - 10/27/2024 3:30 PM EDT Ordering provider: Romulo Latif Date of last office visit: 06/27/24 Date of next office visit: 01/11/25 Updated/Validated preferred pharmacy: Yes Patient instructed to contact the pharmacy prior to picking up the medication: Yes (1) Medication name: metoprolol tartrate (Lopressor) 100 MG tablet Medication dosage: 100 mg tablet Monthly quantity needed: 30 How many day supply requestin days Medication route: oral (PO) Medication administration time(s): daily If taking medication PRN, reason for taking medication: N/A If this is a controlled substance do you receive this or any other controlled medication from any other doctor or facility: No Date of last refill (see medication tab): (2) Medication name: clopidogrel (Plavix) 75 MG tablet Medication dosage: 75 mg tablet Monthly quantity needed: 30 How many day supply requestin days Medication route: oral (PO) Medication administration time(s): daily If taking medication PRN, reason for taking medication: N/A If this is a controlled substance do you receive this or any other controlled medication from any other doctor or facility: No Date of last refill (see medication tab): 04/18/24 (3) Medication name: atorvastatin (Lipitor) 40 MG tablet Medication dosage: 40 mg tablet Monthly quantity needed: 30 How many day supply requestin days Medication route: oral (PO) Medication administration time(s): daily If taking medication PRN, reason for taking medication: N/A If this is a controlled substance do you receive this or any other controlled medication from any other doctor or facility: No Date of last refill (see medication tab): 04/25/24 [id number] Miscellaneous Notes* Telephone Encounter - Albina Vasquez - 10/27/2024 3:30 PM EDT Ordering provider: Romulo Latif Date of last office visit: 06/27/24 Date of next office visit: 01/11/25 Updated/Validated preferred pharmacy: Yes Patient instructed to contact the pharmacy prior to picking up the medication: Yes (1) Medication name: metoprolol tartrate (Lopressor) 100 MG tablet Medication dosage: 100 mg tablet Monthly quantity needed: 30 How many day supply requestin days Medication route: oral (PO) Medication administration time(s): daily If taking medication PRN, reason for taking medication: N/A If this is a controlled substance do you receive this or any other controlled medication from any other doctor or facility: No Date of last refill (see medication tab): (2) Medication name: clopidogrel (Plavix) 75 MG tablet Medication dosage: 75 mg tablet Monthly quantity needed: 30 How many day supply requestin days Medication route: oral (PO) Medication administration time(s): daily If taking medication PRN, reason for taking medication: N/A If this is a controlled substance do you receive this or any other controlled medication from any other doctor or facility: No Date of last refill (see medication tab): 04/18/24 (3) Medication name: atorvastatin (Lipitor) 40 MG tablet Medication dosage: 40 mg tablet Monthly quantity needed: 30 How many day supply requestin days Medication route: oral (PO) Medication administration time(s): daily If taking medication PRN, reason for taking medication: N/A If this is a controlled substance do you receive this or any other controlled medication from any other doctor or facility: No Date of last refill (see medication tab): 04/25/24 documented in this [facility]03-17-2025 NoteHNO ID: [id number] Author: PEPE KLINE MD Service: ? Author Type: Physician Type: Progress Notes Filed: 10/24/2024 21:49 Note Text: Pepe Kilne MD Department of Orthopaedics Orthopaedics [address] [facility] [address] Dept: [phone] Dept October 03, 2024 CHIEF COMPLAINT: New of the Right Hand (Cyst right hand/) HPI Patient here for evaluation cyst right hand. States she noticed she has 3 cyst on the palm of her hand. Patient is right hand dominant. Taking no med's for the pain. She does not work outside the home. ASSESSMENT: M72.0 Dupuytren's disease of palm (primary encounter diagnosis) PLAN: She has mild Kirk changes that are not indicated for any intervention nor surgery. FOLLOW UP INSTRUCTIONS: If anything worsens. Info from [employer] provided. OBJECTIVE: Ms. Yue Ibrahim is a pleasant 64 year old in no apparent distress. Gen:There were no vitals taken for this visit. nl development, obese, no deformities ENT: Normocephalic, normal hearing, moist mucosa CV: Pulses:Radial= 2+ and symmetric, capillary refill < 2 secs, no peripheral edema/varicosities Skin: no rash, bruising or lesions. Good turgor. Psych: cooperative and appropriate, alert and oriented x 3, good mood and affect. Musculoskeletal: Small nodules palm without contracture or pain. 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 Gastroesophageal reflux disease 03/09/2017 Hyperlipidemia Hypertension Hypoactive thyroid 03/09/2017 Insomnia 03/09/2017 Obesity Osteoarthritis 03/09/2017 Palpitations Sleep apnea 03/09/2017 SVT (supraventricular tachycardia) (HCC) recurrent; symptomatic; reportedly terminates with IV adenosine, indicative of AV nilesh dependent type of SVT such as AVNRT or AVRT; no WPW pattern by EKG; 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 at EP study 04/07/2017 Tachycardia Type 2 diabetes mellitus without complication (HCC) 03/09/2017 on medical therapy Ventricular septal defect patient states she had hole between ventricles diagnosed at ag 4 yrs, was evaluated at [facility]; no surgical procedure required Past Surgical History: PAST SURGICAL HISTORY Procedure Laterality Date ARTHRP KNE CONDYLEANDPLATU MEDIALANDLAT COMPARTMENTS Right 06/2014 CARDIAC CATH 05/01/2006 [facility]: mild diffuse CAD; normal LV systolic fxn (LVEF 50%) SECTION HX 04/04/1982 CHOLECYSTECTOMY 01/2016 laparoscopic cholecystectomy CORRECTION OF BUNION Bilateral 1997 ECHOCARDIOGRAM 09/2015 normal LV size and systolic fxn; LVEF 60%; mild MVP with trivial MR; trivial TR; bubble contrast negative for right to left interatrial shunt; [place] ECHOCARDIOGRAM 11/17/2005 severe LV systolic dysfxn; LVEF 15%; restrictive diastolic fxn; mild TR ECHOCARDIOGRAM 02/25/2006 normal LV systolic fxn; LVEF 50%; [facility] ECHOCARDIOGRAM 08/2009 normal LV systolic fxn; LVEF 65%; +PFO; [facility] EPS: SVT ABLATION 04/07/2017 EP study showed no APs; normal conduction system; 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 Mckeon EVENT MONITOR 09/2015 30 day monitoring: sinus rhythm 54-125 bpm; rare PACs; bursts of SVT lasting 3-19 beats with rates up to 155 bpm; occas PVCs; reported symptoms did not consistently correlate with heart rate or rhythm disturbance FOOT LEFT OP SURGERY Left 2012 HEMORRHOID SURGERY HX 01/2009 Doppler-guided hemorrhoid ligation HOLTER MONITOR 2009 sinus rhythm; nocturnal bradycardia; rare PACs, PVCs; palpitations inconsistently correlated with PACs; [facility] KNEE SURGERY HX Right 08/16/2005 Repair of patellar tendon rupture, right knee STRESS TEST PHARMACOLOGIC-NUCLEAR 09/2015 [facility]: no ischemia or scar; LVEF 64% TONSILLECTOMY HX 1979 VAGINAL HYSTERECTOMY WRIST SURGERY HX Right right wrist cyst removal Family History: FAMILY HISTORY Problem Relation Age of Onset Arthritis Mother Heart Mother atrial fibrillation Hypertension Father Cancer Father lung cancer, metastatic Arthritis Sister Diabetes Sister Thyroid Sister other (fibromyalgia) Sister Heart Sister 50 heart attack age 50 yrs, had CABG at that time Diabetes Sister Obesity Sister Thyroid Sister other (tobacco use) Sister Heart Brother had maker in his 50s Diabetes Brother other (ICD) Brother other (cardiac arrest) Brother Skin Cancer Brother Asthma Brother other (SIDS) Brother sudden infant syndrome Stroke Maternal Grandmother He (more content not included)...[facility]03-17-2025 History of Present illness Narrative* Pepe Kline MD - 10/03/2024 1:31 PM EDT Pepe Kline MD Department of Orthopaedics Orthopaedics [address] [facility] [address] Dept: [phone] Dept October 03, 2024 CHIEF COMPLAINT: New of the Right Hand (Cyst right hand/) HPI Patient here for evaluation cyst right hand. States she noticed she has 3 cyst on the palm of her hand. Patient is right hand dominant. Taking no med's for the pain. She does not work outside the home. ASSESSMENT: M72.0 Dupuytren's disease of palm (primary encounter diagnosis) PLAN: She has mild Kirk changes that are not indicated for any intervention nor surgery. FOLLOW UP INSTRUCTIONS: If anything worsens. Info from [employer] provided. OBJECTIVE: Ms. Yue Ibrahim is a pleasant 64 year old in no apparent distress. Gen:There were no vitals taken for this visit. nl development, obese, no deformities ENT: Normocephalic, normal hearing, moist mucosa CV: Pulses:Radial= 2+ and symmetric, capillary refill < 2 secs, no peripheral edema/varicosities Skin: no rash, bruising or lesions. Good turgor. Psych: cooperative and appropriate, alert and oriented x 3, good mood and affect. Musculoskeletal: Small nodules palm without contracture or pain. 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 Gastroesophageal reflux disease 03/09/2017 Hyperlipidemia Hypertension Hypoactive thyroid 03/09/2017 Insomnia 03/09/2017 Obesity Osteoarthritis 03/09/2017 Palpitations Sleep apnea 03/09/2017 SVT (supraventricular tachycardia) (HCC) recurrent; symptomatic; reportedly terminates with IV adenosine, indicative of AV nilesh dependent type of SVT such as AVNRT or AVRT; no WPW pattern by EKG; 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; no surgical procedure required Past Surgical History: PAST SURGICAL HISTORY Procedure Laterality Date ARTHRP KNE CONDYLE&PLATU MEDIAL&LAT COMPARTMENTS Right 06/2014 CARDIAC CATH 05/01/2006 [facility]: mild diffuse CAD; normal LV systolic fxn (LVEF 50%) SECTION HX 04/04/1982 CHOLECYSTECTOMY 01/2016 laparoscopic cholecystectomy CORRECTION OF BUNION Bilateral 1997 ECHOCARDIOGRAM 09/2015 normal LV size and systolic fxn; LVEF 60%; mild MVP with trivial MR; trivial TR; bubble contrast negative for right to left interatrial shunt; [place] ECHOCARDIOGRAM 11/17/2005 severe LV systolic dysfxn; LVEF 15%; restrictive diastolic fxn; mild TR ECHOCARDIOGRAM 02/25/2006 normal LV systolic fxn; LVEF 50%; [facility] ECHOCARDIOGRAM 08/2009 normal LV systolic fxn; LVEF 65%; +PFO; [facility] EPS: SVT ABLATION 04/07/2017 EP study showed no APs; normal conduction system; 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 Mckeon EVENT MONITOR 09/2015 30 day monitoring: sinus rhythm 54-125 bpm; rare PACs; bursts of SVT lasting 3- 19 beats with rates up to 155 bpm; occas PVCs; reported symptoms did not consistently correlate with heart rate or rhythm disturbance FOOT LEFT OP SURGERY Left 2012 HEMORRHOID SURGERY HX 01/2009 Doppler-guided hemorrhoid ligation HOLTER MONITOR 2009 sinus rhythm; nocturnal bradycardia; rare PACs, PVCs; palpitations inconsistently correlated with PACs; [facility] KNEE SURGERY HX Right 08/16/2005 Repair of patellar tendon rupture, right knee STRESS TEST PHARMACOLOGIC-NUCLEAR 09/2015 [facility]: no ischemia or scar; LVEF 64% TONSILLECTOMY HX 1979 VAGINAL HYSTERECTOMY WRIST SURGERY HX Right right wrist cyst removal Family History: FAMILY HISTORY Problem Relation Age of Onset Arthritis Mother Heart Mother atrial fibrillation Hypertension Father Cancer Father lung cancer, metastatic Arthritis Sister Diabetes Sister Thyroid Sister other (fibromyalgia) Sister Heart Sister 50 heart attack age 50 yrs, had CABG at that time Diabetes Sister Obesity Sister Thyroid Sister other (tobacco use) Sister Heart Brother had maker in his 50s Diabetes Brother other (ICD) Brother other (cardiac arrest) Brother Skin Cancer Brother Asthma Brother other (SIDS) Brother sudden syndrome Stroke Maternal Grandmother Heart Maternal Grandmother ? aneurysm of heart or aorta heart blew out Cancer Maternal Grandfather Stroke Paternal Grandmother Heart Paternal Grandfather from massive heart attack in his 60s Colon Cancer Maternal Uncle Diabetes Maternal Uncle Colon Cancer Paternal Aunt Social History: Social History Tobacco Use Smoking status: Never Smokeless tobacco: Never Vaping Use Vaping status: Never Used Substance Use Topics Alcohol use: No Drug use: No Medications: Current Outpatient Medications Medication Sig ENTRESTO 49-51 mg tablet Take 1 tablet by mouth once daily. aspirin, enteric coated (ASPIRIN, ENTERIC COATED) 81 mg EC tablet Take 81 mg by mouth once daily. ascorbic acid, vitamin C, (VITAMIN C) 250 mg tablet Take 250 mg by mouth once daily. atorvastatin (LIPITOR) 40 mg tablet Take 40 mg by mouth once daily. clopidogrel (PLAVIX) 75 mg tablet Take 75 mg by mouth once daily. furosemide (LASIX) 40 mg tablet Take 40 mg by mouth two times a day. gabapentin (NEURONTIN) 100 mg capsule Take 200 mg by mouth two times a day. levothyroxine 50 mcg cap Take 50 mcg by mouth daily before breakfast. metFORMIN ER (GLUCOPHAGE XR) 500 mg 24 hr tablet Take 500 mg by mouth daily with breakfast. nitroglycerin sublingual (NITROQUICK) 0.4 mg SL tablet Dissolve 0.4 mg under the tongue every 5 minutes as needed for chest pain. omeprazole (PRILOSEC) 20 mg capsule Take 20 mg by mouth once daily. Blood Glucose Control, High (ONETOUCH VERIO HIGH CONTROL) blood sugar diagnostic (QuibbTOUCH VERIO TEST STRIPS) test strip before meals and at bedtime. dulaglutide (TRULICITY) 1.5 mg/0.5 mL pen injector Inject 1.5 mg subcutaneously one time a week. metFORMIN ER (GLUCOPHAGE XR) 750 mg 24 hr tablet Take 750 mg by mouth daily with breakfast. (Patient not taking: Reported on 10/03/2024) zolpidem (AMBIEN) 10 mg tab Take 10 mg by mouth at bedtime as needed. (Patient not taking: Reportedon 10/03/2024) metoprolol tartrate, short acting, (LOPRESSOR) 50 mg tablet Take 75 mg by mouth twice daily. (Patient not taking: Reported on 10/03/2024) ranitidine (ZANTAC) 150 mg tablet Take 150 mg by mouth twice daily. (Patient not taking: Reported on 10/03/2024) Levothyroxine 25 mcg cap Take by mouth. (Patient not taking: Reported on 10/03/2024) No current facility-administered medications for this visit. Allergies: Clarithromycin, Clindamycin, Erythromycin, Macrodantin [Nitrofurantoin Macrocrystalline], Nitrofurantoin, Septra [Sulfamethoxazole- Trimethoprim], and Sulfa (Sulfonamide Antibiotics) ROS: General (negative for fatigue, malaise, weight loss/gain) HEENT (negative for headache, earache, recent vision changes, sinus pain, sore throat) Respiratory (no recent shortness of breath, hemoptysis) CV (negative for chest tightness, palpitations) Musculoskeletal (see HPI) Psych (no depression, anxiety) Pepe Kline MD [facility] Radiology Diagnostic study note [facility] [address] [place] [address] Chest without Contrast MR#: [id number] Acct: [id number] Name: YUE IBRAHIM Rep #: [id number] : 1960 F 64 From: J Luis Wiggins MD PCP: ABDI Day Status: REG CLI Study:Chest without Contrast Date of Exam: 09/21/24 Exam# [id number] Ordering Dr: Anselmo Sarabia MD PROCEDURE: Cardiomyopathy. Coronary stents. Possible sarcoidosis. TECHNIQUE: Chest CT without contrast. COMPARISON: None. FINDINGS: Hardware: None. Lymph nodes: Calcified right hilar lymph. Heart and Vasculature: Normal heart size. No pericardial effusion. Atherosclerotic calcifications of the thoracic aorta. Thoracic aorta and pulmonary arteries have normal contours; noncontrast technique limits evaluation. Coronary Artery Calcifications: Present Lungs and Airways: The lungs are normally expanded and clear. Pleura: No pleural effusion. No pneumothorax. Upper Abdomen: Visualized portions of the upper abdominal viscera are unremarkable. Bones: Degenerative changes of the thoracic spine. CT/Chest without Contrast IMPRESSION: Coronary artery calcification. No evidence of sarcoidosis. One or more dose reduction techniques were used (e.g., Automated exposure control, adjustment of the mA and/or kV according to patient size, use of iterative reconstruction technique). Reading Location: [id number] CC: ABDI Castanon; Dr. Esdras Sarabia MD ~ Gas Cutter: Signed [facility]01-28-2025 Evaluation note* Diagnosis Onset Date Resolution Status Admit Date Cardiomyopathy chronic August 162024 1:10pm Coronary artery disease chronic J anuary 2024 1:10pm Diabetes mellitus chronic August 16, 2024 1:10pm Dyslipidemia chronic July 1:10pm Essential hypertension chronic [facility] 2024 1:10pm Obesity chronic August 16, 2024 1:10pm HUSSEIN (obstructive sleep apnea) chronic August 16 1:10pm Stented coronary artery May 04, 2023 mechanic recovery shukri August 16, 2024 1:10pm SALMERON (dyspnea on exertion) resolved August 16, 2024 1:10pm History of PSVT (paroxysmal supraventricular tachycardia) resolved August 16 1:10pm [facility] Work Phone: 1(962) 228-294601-28-2025 Evaluation note* Diagnosis Onset Date Resolution Status Admit Date Cardiomyopathy chronic August 162024 1:10pm Coronary artery disease chronic J anuary 2024 1:10pm Diabetes mellitus chronic August 16, 2024 1:10pm Dyslipidemia chronic July 1:10pm Essential hypertension chronic [facility] 2024 1:10pm Obesity chronic August 16, 2024 1:10pm HUSSEIN (obstructive sleep apnea) chronic August 16 1:10pm Stented coronary artery May 04, 2023 mechanic recovery shukri August 16, 2024 1:10pm SALMERON (dyspnea on exertion) resolved August 16, 2024 1:10pm History of PSVT (paroxysmal supraventricular tachycardia) resolved August 16 1:10pm Cardiomyopathy chronic October 10:37am Dyslipidemia chronic November 07, 2024 10:37am Essential hypertension chronic Ap 2024 10:37am HUSSEIN (obstructive sleep apnea) chronic November 07, 2024 10:37am Stented coronary artery May 04, 2023 mechanic recovery shukri November 07, 2024 10:37am SALMERON (dyspnea on exertion) resolved November 07, 2024 10:37am History of PSVT (paroxysmal supraventricular tachycardia) resolved November 07, 2024 10:37am [facility] Work Phone: 1(957) 636-345801-28-2025 Evaluation note* Diagnosis Onset Date Resolution Status Admit Date Cardiomyopathy chronic August 162024 1:10pm Coronary artery disease chronic J anuary 2024 1:10pm Diabetes mellitus chronic August 16, 2024 1:10pm Dyslipidemia chronic July 1:10pm Essential hypertension chronic [facility] 2024 1:10pm Obesity chronic August 16, 2024 1:10pm HUSSEIN (obstructive sleep apnea) chroni c August 16, 2024 1:10pm Stented coronary artery December 05, 2024 chronic August 16, 2024 1:10pm SALMERON (dyspnea on exertion) resolved August 16, 2024 1:10pm History of PSVT (paroxysmal supraventricular tachycardia) resolved [facility] 2024 1:10pm Cardiomyopathy chronic October 10:37am Dyslipidemia chronic November 07, 2024 10:37am Essential hypertension chronic Ap ril 2024 10:37am HUSSEIN (obstructive sleep apnea) chroni c November 07, 2024 10:37am Stented coronary artery December 05, 2024 chronic November 07, 2024 10:37am SALMERON (dyspnea on exertion) resolved November 07, 2024 10:37am History of PSVT (paroxysmal supraventricular tachycardia) resolved [facility] 2024 10:37am [employer] Work Phone: [phone]) 789-922912-09-2024 History of Present illness Narrative* Rafaela Castanon APRN - GREGORIO - 06/27/2024 11:20 AM EST Images from the original note were not included. Patient Yue Ibrahim 64 y.o. female, presents today with Chief Complaint Patient presents with Medication Check Diabetes Health Maintenance Hep C screen- declines Mammo- agrees CRCS- Dr. Luis Antonio garcia(1-2 weeks ago) DM eye- is going to make appointment Dm dental- not done Blood Work . HPI- Yue Ibrahim presents today for follow up on her diabetes and other chronic health conditions. Previous hemoglobin A1c was 8.7% on 01/08/24. Had the dose of her Trulicity increased to 1.5 mgat that time. Diabetes Mellitus Type II: Known diabetic complications: peripheral neuropathy and cardiovascular disease- actively follows upwith cardiology and is scheduled to see them again in July. Taking Gabapentin. Cardiovascular risk factors: diabetes mellitus, dyslipidemia, hypertension, obesity (BMI >= 30 kg/m2), and sedentary lifestyle Current diabetic medications include: Metformin and Trulicity. Eye exam current (within one year): No - Radha Silva December 2022- reminded to schedule this year's appointment Dental exam current (within one year): No- 06/23/23. Reminded to schedule. Weight trend: has lost 4 pounds over the past 6 months Prior visit with anesthesiology technologist: No Current diet: in general, an unhealthy diet Current exercise: none Current monitoring regimen: home blood tests - yes Home blood sugar records: fasting range: averages 80-189 Any episodes of hypoglycemia? No - denies signs or symptoms Is She on CLAUDIA inhibitor or angiotensin II receptor yeyo? Yes- was taken off of Losartan and started on Entresto - blood pressure is stable today at 130/82 Currently on statin therapy? Yes - Atorvastatin. Levels last checked on 01/08/24. Component Ref Range & Units 5 mo ago (01/08/24) 5 mo ago (01/04/24) 1 yr ago (11/17/22) 2 yr ago (11/15/21) 4 yr ago (04/06/20) CHOLESTEROL, TOTAL <200 mg/dL 120 116 HDL CHOLESTEROL > OR = 50 mg/dL 37 Low 33 Abnormal R 38 Low 37 Low R 41 R TRIGLYCERIDES <150 mg/dL 249 High 188 Abnormal R 193 High 268 Abnormal 204 Abnormal LDL-CHOLESTEROL mg/dL (calc) 54 52 CM CHOL/HDLC RATIO <5.0 (calc) 3.2 3.1 NON HDL CHOLESTEROL <130 mg/dL (calc) 83 78 CM Last urine microalbumin was 2.8 mg/L on 01/08/24. Last foot exam was 01/08/24. Hypothyroidism: Takes Levothyroxine as prescribed. TSH was within normal range at 3.2 mIU/L on 01/08/24. GERD: Takes Omeprazole as prescribed. Feels symptoms are stable. Denies abdominal pain or dark black tarry stools. Sleep Apnea: Has not been wearing her CPAP for her sleep for several years. Plans to follow up withher computer systems analyst to look for other options since she does not tolerate the CPAP. DJD/Arthritis: Takes Gabapentin and feels symptoms are stable. Will take Aleve intermittently but uses this sparingly due to her other heart medications. Insomnia: Currently averaging 6-7 (interrupted) hours of sleep per night and feels symptoms are stable. Has a firm area in the palm of her right hand she she first noticed a few weeks ago that she would like looked at. States it is non-tender and does not impair finger/hand movement. Would like to see a hand specialist for this. Health Maintenance: Colon cancer screening: had a colonoscopy with Dr. Montelongo a few weeks ago- willrequest records. Tdap current: 10/06/23. Declines to be vaccinated for Hep B. Is fully vaccinated for shingles. Declines screening for HIV and Hep C. Mammogram: 04/23/22- had an order placed for repeatimaging in February 2023 but never got this scheduled- needs a new order placed today. Current on pneumonia vaccinations: PPSV23 on 08/25/18 and PCV13 on 11/15/21. Vaccinated for COVID-19 x7 with most recent dose on 04/16/24. Has had a hysterectomy and no longer gets pap smears. Echocardiogram: 04/05/24. RSV immunization: 06/19/23. Had a flu vaccination 04/16/24. Past Medical History: Diagnosis Date Abnormal weight gain Acute URI 12/19/2021 Cardiomyopathy (HCC) Cardiomyopathy (HCC) CHF (congestive heart failure) (HCC) CHF (congestive heart failure) (HCC) Diabetes (HCC) DJD (degenerative joint disease) Edema GERD (gastroesophageal reflux disease) Hypothyroidism Insomnia Knee pain [place] (myocardial infarction) (HCC) Nasal congestion 10/16/2022 Obesity Trapezius strain, unspecified laterality, initial encounter 07/18/2022 Type II or unspecified type diabetes mellitus without mention of complication, not stated as uncontrolled (HCC) Unspecified sleep apnea Past Surgical History: Procedure Laterality Date BUNIONECTOMY CARDIAC CATHETERIZATION 08/16/2019 CARDIAC CATHETERIZATION 04/2023 Stent Placement CARPAL TUNNEL RELEASE COLONOSCOPY 06/13/2024 HEMORRHOID SURGERY DOPPLER-GUIDED LIGATION JOINT REPLACEMENT KNEE RIGHT TONSILLECTOMY AND ADENOIDECTOMY (HISTORICAL) TOTAL VAGINAL HYSTERECTOMY Family History Problem Relation Name Age of Onset Heart disease Brother Cancer Father Cancer Mother Diabetes Mother Heart disease Sister High Blood Pressure Father Asthma Brother Social History Socioeconomic History Marital status: Spouse name: Not on file Number of children: Not on file Years of education: Not on file Highest education level: Not on file Occupational History Not on file Tobacco Use Smoking status: Never Smokeless tobacco: Never Vaping Use Vaping status: Never Used Substance and Sexual Activity Alcohol use: No Alcohol/week: 0.0 standard drinks of alcohol Drug use: No Sexual activity: Defer Other Topics Concern Not on file Social History Narrative Not on file Social Drivers of Health Financial Resource Strain: High Risk (10/05/2023) Overall Financial Resource Strain (CARDIA) Difficulty of Paying Living Expenses: Hard Food Insecurity: Food Insecurity Present (10/05/2023) Hunger Vital Sign Worried About Running Out of Food in the Last Year: Often true Ran Out of Food in the Last Year: Often true Transportation Needs: No Transportation Needs (10/05/2023) PRAPARE - Transportation Lack of Transportation (Medical): No Lack of Transportation (Non-Medical): No Physical Activity: Inactive (10/05/2023) Exercise Vital Sign Days of Exercise per Week: 1 day Minutes of Exercise per Session: 0 min Stress: Not on file Social Connections: Not on file Intimate Partner Violence: Not on file Housing Stability: Low Risk (10/05/2023) Housing Stability Vital Sign Unable to Pay for Housing in the Last Year: No Number of Places Lived in the Last Year: 1 Unstable Housing in the Last Year: No Health Maintenance Topic Date Due Mammogram 04/23/2023 Colorectal Cancer Screening 11/04/2023 Diabetes: Retinopathy Screening 12/19/2023 Diabetes: Dental Exam 06/23/2024 Hepatitis C Screening 06/27/2025 (Originally 1978) Depression Screening 01/07/2025 Creatinine Level 01/07/2025 Potassium Level 01/07/2025 TSH Level 01/07/2025 Diabetes: Estimated Glomerular Filtration Rate for Kidney Health 01/07/2025 Diabetes: Urine Albumin-Creatinine Ratio for Kidney Health 01/07/2025 Diabetes: Foot Exam 01/07/2025 Lipid Panel 01/07/2025 Diabetes: Hemoglobin A1C 01/07/2025 Pneumococcal Vaccine: Pediatrics (0 to 5 Years) and At-Risk Patients (6 to 64 Years) (3 of 3 - PPSV23 or PCV20) 2025 Echocardiogram 04/05/2025 DTaP/Tdap/Td Vaccines (2 - Td or Tdap) 10/05/2033 Medicare Advantage Annual Wellness Visit Completed RSV Immunization for Adults Completed MMR Vaccines Completed Influenza Vaccine Completed Zoster Vaccines Completed HIV Screening Completed COVID-19 Vaccine Completed RSV Immunization under 20 Months Aged Out HIB Vaccines Aged Out Hepatitis B Vaccines Aged Out IPV Vaccines Aged Out Hepatitis A Vaccines Aged Out Meningococcal Vaccine Aged Out Rotavirus Vaccines Aged Out HPV Vaccines Aged Out Allergies Allergen Reactions Lisinopril Other Trimethoprim Sulfamethoxazole-Trimethoprim Hives and Rash Other reaction(s): Hives and/or rash Clarithromycin Hives Clindamycin Hives Farxiga [Dapagliflozin] Other Yeast Infections Sulfa Antibiotics Hives Other reaction(s): Hives and/or rash Clindamycin/Lincomycin Hives and Rash Other reaction(s): Rash Erythromycin Hives and Rash Nitrofurantoin Hives and Rash Review of Systems Constitutional: Negative for chills and fever. Respiratory: Positive for shortness of breath. Negative for chest tightness. Cardiovascular: Negative for chest pain and leg swelling. Gastrointestinal: Negative for abdominal distention, abdominal pain, nausea and vomiting. Endocrine: Negative for polydipsia, polyphagia and polyuria. Skin: Negative for color change. Raised area palm of right hand. Neurological: Negative for dizziness and syncope. Psychiatric/Behavioral: Positive for sleep disturbance. BP 130/82 (BP Location: Left arm, Patient Position: Sitting) Pulse 84 Ht 5' 3.5 (1.613 m) Wt249 lb 3.2 oz (113 kg) SpO2 97% BMI 43.45 kg/m Physical Exam Constitutional: General: She is not in acute distress. Appearance: She is obese. She is not ill-appearing or diaphoretic. Neck: Vascular: No carotid bruit. Cardiovascular: Rate and Rhythm: Normal rate and regular rhythm. Pulses: Normal pulses. Heart sounds: Normal heart sounds. No murmur heard. No friction rub. Pulmonary: Effort: Pulmonary effort is normal. Breath sounds: Normal breath sounds. No wheezing, rhonchi or rales. Abdominal: General: Abdomen is protuberant. Bowel sounds are normal. Palpations: Abdomen is soft. There is no hepatomegaly, splenomegaly or mass. Tenderness: There is no abdominal tenderness. There is no guarding or rebound. Comments: Protuberant abdomen impairing examination. Musculoskeletal: Arms: Cervical back: Neck supple. Right lower leg: No edema. Left lower leg: No edema. Lymphadenopathy: Cervical: No cervical adenopathy. Skin: General: Skin is warm and dry. Coloration: Skin is not jaundiced or pale. Findings: No erythema or rash. Neurological: Mental Status: She is alert and oriented to person, place, and time. Psychiatric: Mood and Affect: Mood normal. Behavior: Behavior normal. Thought Content: Thought content normal. Judgment: Judgment normal. Assessment and Plan: 1. Diabetes mellitus type 2 in obese (HCC) - Hemoglobin A1c - Basic metabolic panel - metFORMIN XR (Glucophage-XR) 500 MG 24 hr tablet; Take 2 tablets (1,000 mg) by mouth 2 times daily (with meals)., Starting 06/27/2024, Normal - Stable with Metformin and Januvia. Will continue current treatment plan. 2. Class 3 severe obesity due to excess calories with serious comorbidity and body mass index (BMI)of 40.0 to 44.9 in adult ([facility]) - Basic metabolic panel - Encouraged a healthy diet and regular exercise as tolerated. 3. Congestive heart failure, unspecified HF chronicity, unspecified heart failure type ([facility]) - Basic metabolic panel - Stable. Follow up with specialist as directed. 4. Cardiomyopathy, unspecified type ([facility]) - Basic metabolic panel - Stable. Follow up with specialist as directed. 5. Atherosclerosis of coronary artery of [place] heart without angina pectoris, unspecified vessel or lesion type - Basic metabolic panel - Stable. Follow up with specialist as directed. 6. Neuropathy of both feet - Basic metabolic panel - gabapentin (Neurontin) 100 MG capsule; Take 2 capsules (200 mg) by mouth 2 times daily., StartingThu06/27/2024, Normal - Stable with Gabapentin. Will continue current treatment plan. OARRS report reviewed with no discrepancies. CSA August 2023. 7. Hyperlipidemia, unspecified hyperlipidemia type - Basic metabolic panel - Stable with Atorvastatin. Will continue current treatment plan. 8. Primary hypertension - Basic metabolic panel - Stable with Metoprolol. Will continue current treatment plan. 9. Hypothyroidism, unspecified type - Basic metabolic panel - Stable with Levothyroxine. Will continue current treatment plan. 10. Gastroesophageal reflux disease, unspecified whether esophagitis present - Basic metabolic panel - Stable with Omeprazole. Will continue current treatment plan. 11. Sleep apnea, unspecified type - Basic metabolic panel - Symptoms stable. Encouraged follow up with specialist. 12. Osteoarthritis, unspecified osteoarthritis type, unspecified site - Basic metabolic panel - Stable. 13. Arthritis of right hip - Basic metabolic panel - Stable. 14. Insomnia, unspecified type - Basic metabolic panel - Stable. 15. Cyst of joint of hand, right - External referral to Hand Surgery 16. Screening mammogram for breast cancer - Bilateral screening mammogram with tomosynthesis Discussed use, benefit, and side effects of prescribed medications. Barriers to medication compliance addressed. All patient questions answered. Pt voiced understanding. Follow up in about 6 months (around 12/26/2024) for AWV and fasting blood work. Outpatient Encounter Medications as of 06/27/2024 Medication Sig Dispense Refill ascorbic acid (Vitamin C) 250 MG tablet Take 500 mg by mouth daily. ASPIRIN 81 PO Take 81 mg by mouth. atorvastatin (Lipitor) 40 MG tablet Take 1 tablet (40 mg) by mouth daily. 90 tablet 1 Blood Glucose Calibration (Spinlister VerSidecar) High solution Blood Glucose Monitoring Suppl ([employer]) w/Device kit 1 Device in the morning and 1 Device at noon and 1 Device in the evening. 1 kit 0 clopidogrel (Plavix) 75 MG tablet Take 1 tablet (75 mg) by mouth daily. 90 tablet 1 coenzyme Q-10 10 MG capsule coenzyme Q10 Ubidecarenone Active 100 MG DAILY August 02, 2018 1:02pm 08-02-2018 [facility] ([id number]) dulaglutide (Trulicity) 1.5 MG/0.5ML solution pen-injector Inject 1.5 mg under the skin 1 (one) time per week. 4 Pen 2 Entresto 49-51 MG tablet 1 tablet. furosemide (Lasix) 40 MG tablet (Patient taking differently: as needed.) levothyroxine (Synthroid, Levoxyl) 50 MCG tablet Take 1 tablet (50 mcg) by mouth daily. 90 tablet 1 metoprolol tartrate (Lopressor) 100 MG tablet Take 1 tablet (100 mg) by mouth 2 times daily. 180 tablet 1 nitroglycerin (Nitrostat) 0.4 MG SL tablet every 5 minutes as needed for chest pain up to 3 doses total omeprazole (PriLOSEC) [address] capsule Take 1 capsule (20 mg) by mouth daily. Do not crush or chew.90 capsule 1 SABIATouch Verio test strip USE STRIP TO CHECK GLUCOSE THREE TIMES DAILY 200 each 5 Pharmacist Choice Lancets misc zinc 100 MG tablet Take by mouth. [DISCONTINUED] gabapentin (Neurontin) 100 MG capsule Take 2 capsules (200 mg) by mouth 2 times daily. 120 capsule 0 [DISCONTINUED] metFORMIN XR (Glucophage-XR) 500 MG 24 hr tablet Take 2 tablets (1,000 mg) by mouth in the morning and 2 tablets (1,000 mg) in the evening. Take with meals. 360 tablet 1 gabapentin (Neurontin) 100 MG capsule Take 2 capsules (200 mg) by mouth 2 times daily. 120 capsule 0 [] ketoconazole (NIZOral) 2 % shampoo Shampoo daily, leave on for 5-10 minutes, then rinse. (Patient not taking: Reported on 01/08/2024) 120 mL 0 metFORMIN XR (Glucophage-XR) 500 MG 24 hr tablet Take 2 tablets (1,000 mg) by mouth 2 times daily (with meals). 360 tablet 1 [DISCONTINUED] calcium carbonate (Tums) 500 MG chewable tablet Chew 500 mg daily. (Patient not taking: Reported on 06/27/2024) [DISCONTINUED] gabapentin (Neurontin) 100 MG capsule Take 2 capsules (200 mg) by mouth 2 times daily. 120 capsule 0 [DISCONTINUED] omeprazole (PriLOSEC) [address] capsule Take 1 capsule (20 mg) by mouth daily. Do notcrush or chew. 90 capsule 1 No facility-administered encounter medications on file as of 06/27/2024. IRISH Ramirez CNP 06/27/2024 11:30 AM * Nallely Wall MA - 06/27/2024 11:20 AM EST Patient verified by last name and . documented in this encounterSSamaritan North Health [id number] Telephone encounter Note* Telephone Encounter - IRISH Mann CNP - 05/13/2024 1:15 PM EDT Reviewed chart. Refill appropriate. RX sent. [id number] Miscellaneous Notes* Telephone Encounter - IRISH Mann CNP - 05/13/2024 1:15 PM EDT Reviewed chart. Refill appropriate. RX sent. * Telephone Encounter - Shawanda Wallace LPN - 05/13/2024 11:52 AM EDT Please route to correct office. * Telephone Encounter - Georgina Amezquita - 05/13/2024 10:58 AM EDT Ordering provider: Debbie Date of last office visit: 01/08/2024 Date of next office visit: 05/25/2024 Updated/Validated preferred pharmacy: Yes Patient instructed to contact the pharmacy prior to picking up the medication: Yes (1) Medication name: Levothyroxine Medication dosage: 50 mcg (Micrograms) Monthly quantity needed: 90 How many day supply requestin days Medication route: oral (PO) Medication administration time(s): daily If taking medication PRN, reason for taking medication: N/A If this is a controlled substance do you receive this or any other controlled medication from any other doctor or facility: No Date of last refill (see medication tab): 11/24/2023 documented in this encounterSSamaritan North Health [id number] Telephone encounter Note* Telephone Encounter - Shawanda Wallace LPN - 05/13/2024 11:52 AM EDT Please route to correct office. [id number] Telephone encounter Note* Telephone Encounter - Georgina Amezquita - 05/13/2024 10:58 AM EDT Ordering provider: Debbie Date of last office visit: 01/08/2024 Date of next office visit: 05/25/2024 Updated/Validated preferred pharmacy: Yes Patient instructed to contact the pharmacy prior to picking up the medication: Yes (1) Medication name: Levothyroxine Medication dosage: 50 mcg (Micrograms) Monthly quantity needed: 90 How many day supply requestin days Medication route: oral (PO) Medication administration time(s): daily If taking medication PRN, reason for taking medication: N/A If this is a controlled substance do you receive this or any other controlled medication from any other doctor or facility: No Date of last refill (see medication tab): 11/24/2023 [id number] Telephone encounter Note* Telephone Encounter - Lorena Vasquez RN - 04/25/2024 8:56 AM EDT S: Patient called the clinical access center with complaint of rapid heart rate, sob at times, diarrhea B: Ongoing diarrhea started 3 weeks ago. A: Patient c/o HR 85 normally 64-70. Shortness of breath for a long time states she has enlarged heart, was put on new medication, Entresto. Was told the new medication did not cause the diarrhea. States she just hung up speaking with cardiology. Has gone to bathroom twice this morning. All water, no blood. Asking if trulicity can cause diarrhea. Denies abdominal pain or fever states she is not hungry, Drinking a lot of water. R: Appointment scheduled 04/26/24. Insurance verified. Instructed to bring medications to OV. Covid screen negative. Home Care advice given. Patient instructed to call back with worsening symptoms, concerns or questions. Patient verbalized understanding. Message to the office for review by the provider and needs recommendation from Provider for treatment going forward. Reason for Disposition MODERATE diarrhea (e.g., 4-6 times / day more than normal) and present > 48 hours (2 days) Protocols used: [id number] Miscellaneous Notes* Telephone Encounter - Lorena Vasquez RN - 04/25/2024 8:56 AM EDT S: Patient called the clinical access center with complaint of rapid heart rate, sob at times, diarrhea B: Ongoing diarrhea started 3 weeks ago. A: Patient c/o HR 85 normally 64-70. Shortness of breath for a long time states she has enlarged heart, was put on new medication, Entresto. Was told the new medication did not cause the diarrhea. States she just hung up speaking with cardiology. Has gone to bathroom twice this morning. All water, no blood. Asking if trulicity can cause diarrhea. Denies abdominal pain or fever states she is not hungry, Drinking a lot of water. R: Appointment scheduled 04/26/24. Insurance verified. Instructed to bring medications to OV. Covid screen negative. Home Care advice given. Patient instructed to call back with worsening symptoms, concerns or questions. Patient verbalized understanding. Message to the office for review by the provider and needs recommendation from Provider for treatment going forward. Reason for Disposition MODERATE diarrhea (e.g., 4-6 times / day more than normal) and present > 48 hours (2 days) Protocols used: [id number] documented in this [facility]09-30-2024 Note* Addendum Note - Romulo Latif MD - 04/18/2024 11:00 AM EDTAddended by: ROMULO LATIF on: 04/18/2024 11:00 AM Modules accepted: Orders [facility] [id number] Note* Addendum Note - Romulo Latif MD - 04/18/2024 11:00 AM EDTAddended by: ROMULO LATIF on: 04/18/2024 11:00 AM Modules accepted: Orders [facility] [id number] NoteAddended by: ROMULO LATIF on: 04/18/2024 11:00 AM Modules accepted: [facility]09-30-2024 Telephone encounter Note* Telephone Encounter - Romulo Latif MD - 04/18/2024 11:00 AM EDT Losartan removed [facility] [id number] Miscellaneous Notes* Addendum Note - Romulo Latif MD - 04/18/2024 11:00 AM EDTAddended by: ROMULO LATIF on: 04/18/2024 11:00 AM Modules accepted: Orders * Telephone Encounter - Romulo Latif MD - 04/18/2024 11:00 AM EDT Losartan removed * Addendum Note - Moni Angel - 04/18/2024 9:09 AM EDTAddended by: MONI ANGEL on: 04/18/2024 09:09 AM Modules accepted: Orders * Telephone Encounter - Moni Angel - 04/18/2024 9:08 AM EDT Pulled in entresto rx and flagged for removal for losartan * Telephone Encounter - Pretty Mcadams - 04/18/2024 8:54 AM EDT Name of caller: Karin Ibrahim Contact phone number: [phone] Relationship to Patient: Patient Provider: Romulo Latif Practice: [facility] Chief Complaint/Reason for Call: Patient called to advise the following: Patient's internet and e business project manager advised her she has an enlarged heart. As a result of enlarged heart, internet and e business project manager has put patient on Entresto. Carousel Operator took patient off Losartan; advised that the Entresto has Losartan in it (Losartan previously prescribed by Dr Latif). Please update patient's medication list. Best time of day caller can be reached: any Patient advised that office/PCP has 24-48 business hours to return their call: N/A documented in this [facility]09-30-2024 Note* Addendum Note - Moni Angel - 04/18/2024 9:09 AM EDTAddended by: MONI ANGEL on: 04/18/2024 09:09 AM Modules accepted: Orders [facility] [id number] Note* Addendum Note - Moni Angel - 04/18/2024 9:09 AM EDTAddended by: MONI ANGEL on: 04/18/2024 09:09 AM Modules accepted: Orders [facility] [id number] NoteAddended by: MONI ANGEL on: 04/18/2024 09:09 AM Modules accepted: [facility]09-30-2024 Telephone encounter Note* Telephone Encounter - Moni Angel - 04/18/2024 9:08 AM EDT Pulled in entresto rx and flagged for removal for losartan [facility] [id number] Telephone encounter Note* Telephone Encounter - Pretty Mcadams - 04/18/2024 8:54 AM EDT Name of caller: Karin Ibrahim Contact phone number: [phone] Relationship to Patient: Patient Provider: Romulo Latif Practice: [facility] Chief Complaint/Reason for Call: Patient called to advise the following: Patient's internet and e business project manager advised her she has an enlarged heart. As a result of enlarged heart, internet and e business project manager has put patient on Entresto. Carousel Operator took patient off Losartan; advised that the Entresto has Losartan in it (Losartan previously prescribed by Dr Latif). Please update patient's medication list. Best time of day caller can be reached: any Patient advised that office/PCP has 24-48 business hours to return their call: N/A [id number] Telephone encounter Note* Telephone Encounter - Romulo Latif MD - 02/17/2024 10:33 AM EDT Thank you [id number] Miscellaneous Notes* Telephone Encounter - Romulo Latif MD - 02/17/2024 10:33 AM EDT Thank you * Telephone Encounter - Moni Angel - 02/17/2024 9:34 AM EDT Re-faxed to [place]. * Telephone Encounter - Elma Castanon - 02/17/2024 8:48 AM EDT Name of caller: Patsy Contact phone number: [phone] Relationship to Patient: [facility] Provider: Dr Latif Practice: [facility] Chief Complaint/Reason for Call: Patsy is requesting the office notes and referral that are scanned into media on 02/12/24 be refaxed, she states they never received the docomentation. Patient has anappointment scheduled for 03/16/24. Please advise, thank you Best time of day caller can be reached: any Patient advised that office/PCP has 24-48 business hours to return their call: Yes documented in this encounterSSamaritan North Health [id number] Telephone encounter Note* Telephone Encounter - Moni Angel - 02/17/2024 9:34 AM EDT Re-faxed to [place]. [facility] [id number] Telephone encounter Note* Telephone Encounter - Elma Castanon - 02/17/2024 8:48 AM EDT Name of caller: Patsy Contact phone number: [phone] Relationship to Patient: [facility] Provider: Dr Latif Practice: [facility] Chief Complaint/Reason for Call: Patsy is requesting the office notes and referral that are scanned into media on 02/12/24 be refaxed, she states they never received the docomentation. Patient has anappointment scheduled for 03/16/24. Please advise, thank you Best time of day caller can be reached: any Patient advised that office/PCP has 24-48 business hours to return their call: Yes [facility] [id number] History of Present illness Narrative* Rafaela Castanon APRN - [place] - 01/08/2024 9:40 AM EDT Images from the original note were not included. [facility] [address] [id number] Visit type: Established Patient Reason for Visit: Blood Work, Medicare Annual Wellness Visit Subsequent, and Health Maintenance (CR[facility]- Has set up with Reginald at end of January. /) Assessment and Plan 1. Medicare annual wellness visit, subsequent - Encouraged a healthy diet low in cholesterol and saturated fats. - Encouraged regular exercise. 2. Diabetes mellitus type 2 in obese (HCC) - CBC - Comprehensive metabolic panel - Hm Diabetes Foot Exam - Microalbumin / creatinine urine ratio - Hemoglobin A1c - Not at goal. Will notify of blood work results and provide recommendations accordingly. - Encouraged to be checking blood sugars regularly at home. 3. Encounter for diabetic foot exam ([facility]) - Diabetes Foot Exam 4. Neuropathy of both feet - CBC - Comprehensive metabolic panel - Stable with Gabapentin. Will continue current treatment plan. 5. Class 3 severe obesity due to excess calories with serious comorbidity and body mass index (BMI)of 40.0 to 44.9 in adult ([facility]) - CBC - Comprehensive metabolic panel - Encouraged a healthy diet and regular exercise. 6. Atherosclerosis of coronary artery of [place] heart without angina pectoris, unspecified vessel or lesion type - CBC - Comprehensive metabolic panel - Lipid panel - Stable. Follow up with specialist as directed. 7. Cardiomyopathy, unspecified type ([facility]) - CBC - Comprehensive metabolic panel - Lipid panel - Stable. Follow up with specialist as directed. 8. Congestive heart failure, unspecified HF chronicity, unspecified heart failure type ([facility]) - CBC - Comprehensive metabolic panel - Lipid panel - Stable. Follow up with specialist as directed. 9. Presence of stent in coronary artery - CBC - Comprehensive metabolic panel - Lipid panel - Stable. Follow up with specialist as directed. 10. Primary hypertension - CBC - Comprehensive metabolic panel - Stable with Losartan. Will continue current treatment plan. 11. Hyperlipidemia, unspecified hyperlipidemia type - CBC - Comprehensive metabolic panel - Lipid panel - Stable with Atorvastatin. Will continue current treatment plan. 12. Hypothyroidism, unspecified type - CBC - Comprehensive metabolic panel - TSH - Stable with Levothyroxine. Will continue current treatment plan. 13. Gastroesophageal reflux disease, unspecified whether esophagitis present - CBC - Comprehensive metabolic panel - Stable with Omeprazole. Will continue current treatment plan. 14. Sleep apnea, unspecified type - CBC - Comprehensive metabolic panel - Encouraged follow up with specialist. 15. Osteoarthritis, unspecified osteoarthritis type, unspecified site - CBC - Comprehensive metabolic panel - Stable. 16. Arthritis of right hip - CBC - Comprehensive metabolic panel - Stable. 17. Insomnia, unspecified type - CBC - Comprehensive metabolic panel - Symptoms stable. 18. Screening for deficiency anemia - [facility] - Will notify of blood work results. Follow up in about 3 months (around 04/09/2024) for diabetes management. Sun BELLO Karin presents today for her annual Medicare physical and fasting blood work. Diabetes Mellitus Type II: Most recent hemoglobin A1c was 8.5% on 10/05/23. Known diabetic complications: peripheral neuropathy and cardiovascular disease- actively follows upwith cardiology and is scheduled to see them again in a few weeks. Taking Gabapentin. Cardiovascular risk factors: diabetes mellitus, dyslipidemia, hypertension, obesity (BMI >= 30 kg/m2), and sedentary lifestyle Current diabetic medications include: Metformin and Trulicity. Eye exam current (within one year): No - Radha Schaeferestela December 2022- reminded to schedule this year's appointment Dental exam current (within one year): Yes - 06/23/23 Weight trend: has lost 3 pounds over the past 3 months Prior visit with anesthesiology technologist: No Current diet: in general, an unhealthy diet Current exercise: none Current monitoring regimen: home blood tests - none Home blood sugar records: fasting range: has not been checking Any episodes of hypoglycemia? No - denies signs or symptoms Is She on CLAUDIA inhibitor or angiotensin II receptor yeyo? Yes losartan (Cozaar)- blood pressure is stable today at 130/81 Currently on statin therapy? Yes - Atorvastatin Last urine microalbumin was less than 0.2 mg/L on 11/17/22. Will recheck today. Last foot exam was 11/17/22. Will do today. Hypothyroidism: Takes Levothyroxine as prescribed. Will check her TSH level today. GERD: Takes Omeprazole as prescribed. Feels symptoms are stable. Denies abdominal pain or dark black tarry stools. Sleep Apnea: Has not been wearing her CPAP for her sleep for several years. Plans to follow up withher computer systems analyst to look for other options since she does not tolerate the CPAP. DJD/Arthritis: Takes Gabapentin and feels symptoms are stable. Will take Aleve intermittently but uses this sparingly due to her other heart medications. Insomnia: Currently averaging 6-7 hours of sleep per night and feels symptoms are stable. Health Maintenance: Colon cancer screening: positive Cologuard 10/26/23- waiting on cardiac clearanceto have colonoscopy completed in [place]. Tdap current: 10/06/23. Declines to be vaccinated for Hep B. Is fully vaccinated for shingles. Declines screening for HIV and Hep C. Mammogram: 04/23/22- had an order placed for repeat imaging in February 2023 but has not gotten this scheduled yet. Current on pneumonia vaccinations: PPSV23 on 08/25/18 and PCV13 on 11/15/21. Vaccinated for COVID-19 x6 with most recent dose on 05/23/23. Has had a hysterectomy and no longer gets pap smears. Echocardiogram: 03/27/23.RSV immunization: 06/19/23. I have reviewed and reconciled the medication list with the patient today. Current Outpatient Medications Medication Sig Dispense Refill ascorbic acid (Vitamin C) 250 MG tablet Take 500 mg by mouth daily. ASPIRIN 81 PO Take 81 mg by mouth. atorvastatin (Lipitor) 40 MG tablet Take 1 tablet (40 mg) by mouth daily. 90 tablet 1 Blood Glucose Calibration (SABIATouch Verio) High solution Blood Glucose Monitoring Suppl (Spinlister Verio) w/Device kit 1 Device in the morning and 1 Device at noon and 1 Device in the evening. 1 kit 0 calcium carbonate (Tums) 500 MG chewable tablet Chew 500 mg daily. clopidogrel (Plavix) 75 MG tablet Take 1 tablet (75 mg) by mouth daily. 90 tablet 1 coenzyme Q-10 10 MG capsule coenzyme Q10 Ubidecarenone Active 100 MG DAILY August 02, 2018 1:02pm 08-02-2018 [facility] ([id number]) dulaglutide (Trulicity) 0.75 MG/0.5ML solution pen-injector Inject 0.75 mg under the skin 1 (one) time per week. 4 each 2 furosemide (Lasix) 40 MG tablet gabapentin (Neurontin) 100 MG capsule Take 2 capsules (200 mg) by mouth 2 times daily. 120 capsule 0 levothyroxine (Synthroid, Levoxyl) 50 MCG tablet Take 1 tablet (50 mcg) by mouth daily. 90 tablet 1 losartan (Cozaar) 50 MG tablet Take 1 tablet (50 mg) by mouth daily. 90 tablet 1 metFORMIN XR (Glucophage-XR) 500 MG 24 hr tablet Take 2 tablets (1,000 mg) by mouth in the morning and 2 tablets (1,000 mg) in the evening. Take with meals. 360 tablet 1 metoprolol tartrate (Lopressor) 100 MG tablet Take 1 tablet (100 mg) by mouth 2 times daily. 180 tablet 1 nitroglycerin (Nitrostat) 0.4 MG SL tablet every 5 minutes as needed for chest pain up to 3 doses total omeprazole (PriLOSEC) [address] capsule Take 1 capsule (20 mg) by mouth daily. Do not crush or chew.90 capsule 1 OneTouch Verio test strip USE STRIP TO CHECK GLUCOSE THREE TIMES DAILY 100 each 1 Pharmacist Choice Lancets misc zinc 100 MG tablet Take by mouth. ketoconazole (NIZOral) 2 % shampoo Shampoo daily, leave on for 5-10 minutes, then rinse. (Patient not taking: Reported on 01/08/2024) 120 mL 0 No current facility-administered medications for this visit. There are no discontinued medications. List of current healthcare providers: Patient Care Team: Romulo Latif MD as PCP - General The following health maintenance schedule was reviewed with the patient and provided in printed form in the after visit summary: Health Maintenance Topic Date Due Mammogram 04/23/2023 Colorectal Cancer Screening 11/04/2023 Depression Screening 11/18/2023 TSH Level 11/18/2023 Diabetes: Urine Albumin-Creatinine Ratio for Kidney Health 11/18/2023 Lipid Panel 11/18/2023 HIV Screening 06/16/2024 (Originally 1960) Hepatitis C Screening 06/16/2024 (Originally 1978) Echocardiogram 03/27/2024 Diabetes: Dental Exam 06/23/2024 Creatinine Level 10/04/2024 Potassium Level 10/04/2024 Diabetes: Estimated Glomerular Filtration Rate for Kidney Health 10/04/2024 Diabetes: Hemoglobin A1C 10/04/2024 Diabetes: Retinopathy Screening 12/18/2024 Diabetes: Foot Exam 01/07/2025 Pneumococcal Vaccine: Pediatrics (0 to 5 Years) and At-Risk Patients (6 to 64 Years) (3 of 3 - PPSV23 or PCV20) 2025 DTaP/Tdap/Td Vaccines (2 - Td or Tdap) 10/05/2033 Medicare Advantage Annual Wellness Visit Completed RSV Immunization aged 60 or older Completed MMR Vaccines Completed Influenza Vaccine Completed Zoster Vaccines Completed COVID-19 Vaccine Completed RSV Immunization under 20 Months Aged Out HIB Vaccines Aged Out Hepatitis B Vaccines Aged Out IPV Vaccines Aged Out Hepatitis A Vaccines Aged Out Meningococcal Vaccine Aged Out Rotavirus Vaccines Aged Out HPV Vaccines Aged Out Orders Placed This Encounter Procedures CBC Standing Status: Future Number of Occurrences: 1 Standing Expiration Date: 01/07/2025 Comprehensive metabolic panel Standing Status: Future Number of Occurrences: 1 Standing Expiration Date: 01/07/2025 Lipid panel Standing Status: Future Number of Occurrences: 1 Standing Expiration Date: 01/07/2025 TSH Standing Status: Future Number of Occurrences: 1 Standing Expiration Date: 01/07/2025 Microalbumin / creatinine urine ratio Standing Status: Future Number of Occurrences: 1 Standing Expiration Date: 01/07/2025 Hemoglobin A1c Standing Status: Future Number of Occurrences: 1 Standing Expiration Date: 01/07/2025 Diabetes Foot Exam Health Risk Assessment: General In general, how would you say your health is?: Good In the past 7 days, have you experienced any of the following: New or Increased Pain, New or Increased Fatigue, Loneliness, Social Isolation, Stress or Anger?: No Do you get the social and emotional suppport you need?: Yes (Somewhat) Interventions: N/A Health Habits / Nutrition On average, how many days per week do you engage in moderate to strenous exercise (like a brisk walk)?: (!) 0 days On average, how man minutes do you engage in exercise at this level?: (!) 0 min Have you lost any weight without trying in the past 3 months? : No Have you seen the dentist within the past year?: (!) No Interventions: Inadequate physical activity: Patient is not ready to increase his / her physical activity level atthis time Hearing / Vision Do you or your family notice any trouble with your hearing that hasn't been managed with hearing aids?: (!) Yes Do you have difficulty driving, watching TV, or doing any of your daily activities because of your eyesight?: No Have you had an eye exam within the past year?: Yes No results found. Interventions: Hearing concerns: Encouraged follow up with audiology. Safety Do you have a working smoke detector?: Yes Do you have any tripping hazards - loose or unsecured carpets or rugs?: No Do you have any tripping hazards - clutter in doorways, halls, or stairs?: No Do you have either shower bars, grab bars, non-slip mats or non-slip surfaces in your shower or bathtub? : Yes Do all your stairways have a railing or banister? : Not Applicable Do you fasten your seatbelt when you are in a car?: Yes Interventions: Home safety tips provided ADL In the past 7 days, did you need help from others to perform any of the following everyday activities: Eating, dressing, grooming,bathing, toileting, or walking / balance? : No In the past 7 days, did you need help from others to take care of any of the following: laundry, housekeeping, banking / finances,shopping, telephone use, food preparation, transportation, or taking medications? : No Interventions: N/A Living Will Do you have a living will?: No Interventions: Has forms at home, but has not completed them. Cognitive: Cognitive Screening: Mini-Cog Clock Drawing Test (CDT): 2 Words Recalled: 3 Total Score: 5 Total Score Interpretation: Normal Mini-Cog Hypertension: Yes Interventions: N/A Fall Risk: 01/08/2024 0948 Last Filed Value Fall Risk One or more falls in the last year: No No Advised to use a cane or walker to get around safely: YesAdvised to use a cane or walker to get around safely:. Yes. The comment is When she had her knee replacement. Taken on 01/08/24 0948 YesAdvisedto use a cane or walker to get around safely:. Yes. The comment is When she had her knee replacement. Last Filed Value Feels unsteady when walking: No No Steadies self on furniture while walking at home: No No Worried about falling: Yes Yes Interventions: Home safety tips provided Depression Screening: Over the past 2 weeks, how often have you been bothered by any of the following problems? Little interest or pleasure in doing things: Not at all Feeling down, depressed, or hopeless: Not at all Patient Health Questionnaire-2 Score: 0 Interventions: N/A Tobacco Use: Social History Tobacco Use Smoking Status Never Smokeless Tobacco Never Interventions: N/A Alcohol Use: Interventions: N/A Drug Use: Interventions: N/A Review of Systems Constitutional: Negative for chills and fever. HENT: Negative for hearing loss and trouble swallowing. Eyes: Negative for pain and visual disturbance. Respiratory: Negative for cough, chest tightness, shortness of breath and wheezing. Cardiovascular: Positive for chest pain and palpitations. Negative for leg swelling. Gastrointestinal: Negative for abdominal distention, abdominal pain, blood in stool, constipation and diarrhea. Endocrine: Negative for cold intolerance, heat intolerance, polydipsia, polyphagia and polyuria. Genitourinary: Negative for dysuria and hematuria. Musculoskeletal: Positive for arthralgias. Negative for myalgias. Skin: Negative for color change, pallor, rash and wound. Neurological: Negative for dizziness, syncope, weakness and headaches. Hematological: Does not bruise/bleed easily. Psychiatric/Behavioral: Negative for dysphoric mood. The patient is not nervous/anxious. Immunization History Administered Date(s) Administered COVID-19, mRNA, LNP-S, PF, ghassan-sucrose, 30 mcg/0.3 mL 05/23/2023 Covid-19, Pfizer Bivalent Booster, (Age 12y+), Im, 30 Mcg/0e 05/05/2022 Covid-19, Pfizer Lemon Top, Do Not Dilute, (Age 12 Y+), Im, L 11/27/2021 Influenza, Unspecified 04/25/2014, 04/27/2015, 03/20/2017 Influenza, injectable, quadrivalent 05/13/2016, 03/18/2017, 04/06/2020, 05/23/2023 Influenza, injectable, quadrivalent, preservative free 03/18/2017, 04/06/2018, 04/22/2019 Influenza, injectible, quadrivalent, preservative free 05/23/2023 Influenza, recombinant, quadrivalent, injectable, preservative free 03/25/2021, 05/05/2022 MMR 1961 Pfizer SARS-CoV-2 Vaccination 09/28/2020, 10/19/2020, 04/25/2021 Pneumococcal Conjugate PCV 13 11/15/2021 Pneumococcal Polysaccharide PPSV23 08/25/2018 RSV, bivalent, protein subunit RSVpreF, diluent reconstututed, 0.5 mL, PF 06/19/2023 Tdap 10/06/2023 Zoster, Recombinant 10/06/2023, 12/15/2023 Allergies Allergen Reactions Lisinopril Other Trimethoprim Sulfamethoxazole-Trimethoprim Hives and Rash Other reaction(s): Hives and/or rash Clarithromycin Hives Clindamycin Hives Farxiga [Dapagliflozin] Other Yeast Infections Sulfa Antibiotics Hives Other reaction(s): Hives and/or rash Clindamycin/Lincomycin Hives and Rash Other reaction(s): Rash Erythromycin Hives and Rash Nitrofurantoin Hives and Rash Outpatient Medications Prior to Visit Medication Sig Dispense Refill ascorbic acid (Vitamin C) 250 MG tablet Take 500 mg by mouth daily. ASPIRIN 81 PO Take 81 mg by mouth. atorvastatin (Lipitor) 40 MG tablet Take 1 tablet (40 mg) by mouth daily. 90 tablet 1 Blood Glucose Calibration (SABIATouch Verio) High solution Blood Glucose Monitoring Suppl (Spinlister VerSidecar) w/Device kit 1 Device in the morning and 1 Device at noon and 1 Device in the evening. 1 kit 0 calcium carbonate (Tums) 500 MG chewable tablet Chew 500 mg daily. clopidogrel (Plavix) 75 MG tablet Take 1 tablet (75 mg) by mouth daily. 90 tablet 1 coenzyme Q-10 10 MG capsule coenzyme Q10 Ubidecarenone Active 100 MG DAILY August 02, 2018 1:02pm 08-02-2018 [facility] ([id number]) dulaglutide (Trulicity) 0.75 MG/0.5ML solution pen-injector Inject 0.75 mg under the skin 1 (one) time per week. 4 each 2 furosemide (Lasix) 40 MG tablet gabapentin (Neurontin) 100 MG capsule Take 2 capsules (200 mg) by mouth 2 times daily. 120 capsule 0 levothyroxine (Synthroid, Levoxyl) 50 MCG tablet Take 1 tablet (50 mcg) by mouth daily. 90 tablet 1 losartan (Cozaar) 50 MG tablet Take 1 tablet (50 mg) by mouth daily. 90 tablet 1 metFORMIN XR (Glucophage-XR) 500 MG 24 hr tablet Take 2 tablets (1,000 mg) by mouth in the morning and 2 tablets (1,000 mg) in the evening. Take with meals. 360 tablet 1 metoprolol tartrate (Lopressor) 100 MG tablet Take 1 tablet (100 mg) by mouth 2 times daily. 180 tablet 1 nitroglycerin (Nitrostat) 0.4 MG SL tablet every 5 minutes as needed for chest pain up to 3 doses total omeprazole (PriLOSEC) [address] capsule Take 1 capsule (20 mg) by mouth daily. Do not crush or chew.90 capsule 1 OneTouch Verio test strip USE STRIP TO CHECK GLUCOSE THREE TIMES DAILY 100 each 1 Pharmacist Choice Lancets misc zinc 100 MG tablet Take by mouth. ketoconazole (NIZOral) 2 % shampoo Shampoo daily, leave on for 5-10 minutes, then rinse. (Patient not taking: Reported on 01/08/2024) 120 mL 0 No facility-administered medications prior to visit. Past Medical History: Diagnosis Date Abnormal weight gain Acute URI 12/19/2021 Cardiomyopathy (HCC) Cardiomyopathy (HCC) CHF (congestive heart failure) (HCC) CHF (congestive heart failure) (HCC) Diabetes (HCC) DJD (degenerative joint disease) Edema GERD (gastroesophageal reflux disease) Hypothyroidism Insomnia Knee pain [place] (myocardial infarction) (HCC) Nasal congestion 10/16/2022 Obesity Trapezius strain, unspecified laterality, initial encounter 07/18/2022 Type II or unspecified type diabetes mellitus without mention of complication, not stated as uncontrolled (HCC) Unspecified sleep apnea Social History Socioeconomic History Marital status: Tobacco Use Smoking status: Never Smokeless tobacco: Never Vaping Use Vaping status: Never Used Substance and Sexual Activity Alcohol use: No Alcohol/week: 0.0 standard drinks of alcohol Drug use: No Sexual activity: Defer Social Determinants of Health Financial Resource Strain: High Risk (10/05/2023) Overall Financial Resource Strain (CARDIA) Difficulty of Paying Living Expenses: Hard Food Insecurity: Food Insecurity Present (10/05/2023) Hunger Vital Sign Worried About Running Out of Food in the Last Year: Often true Ran Out of Food in the Last Year: Often true Transportation Needs: No Transportation Needs (10/05/2023) PRAPARE - Transportation Lack of Transportation (Medical): No Lack of Transportation (Non-Medical): No Physical Activity: Inactive (10/05/2023) Exercise Vital Sign Days of Exercise per Week: 1 day Minutes of Exercise per Session: 0 min Housing Stability: Low Risk (10/05/2023) Housing Stability Vital Sign Unable to Pay for Housing in the Last Year: No Number of Places Lived in the Last Year: 1 Unstable Housing in the Last Year: No Past Surgical History: Procedure Laterality Date BUNIONECTOMY CARDIAC CATHETERIZATION 08/16/2019 CARDIAC CATHETERIZATION 04/2023 Stent Placement CARPAL TUNNEL RELEASE HEMORRHOID SURGERY DOPPLER-GUIDED LIGATION JOINT REPLACEMENT KNEE RIGHT TONSILLECTOMY AND ADENOIDECTOMY (HISTORICAL) TOTAL VAGINAL HYSTERECTOMY Past Surgical History: Procedure Laterality Date BUNIONECTOMY CARDIAC CATHETERIZATION 08/16/2019 CARDIAC CATHETERIZATION 04/2023 Stent Placement CARPAL TUNNEL RELEASE HEMORRHOID SURGERY DOPPLER-GUIDED LIGATION JOINT REPLACEMENT KNEE RIGHT TONSILLECTOMY AND ADENOIDECTOMY (HISTORICAL) TOTAL VAGINAL HYSTERECTOMY Family History Problem Relation Name Age of Onset Heart disease Brother Cancer Father Cancer Mother Diabetes Mother Heart disease Sister High Blood Pressure Father Asthma Brother Objective BP 130/81 Pulse 78 Ht 5' 3.5 (1.613 m) Wt 253 lb 6.4 oz (115 kg) SpO2 96% BMI 44.18 kg/m Physical Exam Constitutional: General: Not in acute distress. Appearance: Not ill-appearing or diaphoretic. HENT: Head: Normocephalic and atraumatic. Right Ear: Tympanic membrane, ear canal and external ear normal. Left Ear: Tympanic membrane, ear canal and external ear normal. Nose: Nose normal. No congestion or rhinorrhea. Mouth/Throat: Mouth: Mucous membranes are moist. Pharynx: Oropharynx is clear. No oropharyngeal exudate or posterior oropharyngeal erythema. Eyes: General: No scleral icterus. Extraocular Movements: Extraocular movements intact. Pupils: Pupils are equal, round, and reactive to light. Neck: Thyroid: No thyroid mass or thyromegaly. Vascular: No carotid bruit. Cardiovascular: Rate and Rhythm: Normal rate and regular rhythm. Pulses: Normal pulses. Heart sounds: Normal heart sounds. No murmur heard. No friction rub. Pulmonary: Effort: Pulmonary effort is normal. Breath sounds: Normal breath sounds. No wheezing, rhonchi or rales. Abdominal: General: Bowel sounds are normal. Palpations: Abdomen is soft. There is no hepatomegaly, splenomegaly or mass. Tenderness: There is no abdominal tenderness. Musculoskeletal: General: No deformity. Normal range of motion. Cervical back: Normal range of motion and neck supple. Right lower leg: No edema. Left lower leg: No edema. Lymphadenopathy: Cervical: No cervical adenopathy. Skin: General: Skin is warm and dry. Coloration: Skin is not jaundiced or pale. Findings: No erythema. Neurological: Mental Status: Alert and oriented to person, place, and time. Motor: No weakness. Gait: Gait normal. Psychiatric: Mood and Affect: Mood normal. Behavior: Behavior normal. Thought Content: Thought content normal. Judgment: Judgment normal. Data Reviewed Labs: Imaging/Testing: IRISH Ramirez CNP 01/08/2024 10:10 AM * Nallely Wall MA - 01/08/2024 9:40 AM EDT Patient verified by last name and . documented in this [facility]05-15-2024 History of Present illness Narrative* Rafaela Castanon APRN - LICENSED LOAN OFFICER ASSISTANT - 12/02/2023 2:40 PM EDT Images from the original note were not included. 12/02/2023 Yue Ibrahim (: 1960) is a 63 y.o. female , Established patient, here for evaluation ofthe following chief complaint(s): Follow-up ASSESSMENT/PLAN: 1. Diabetes mellitus type 2 in obese (HCC) - dulaglutide (Trulicity) 0.75 MG/0.5ML solution pen-injector; Inject 0.75 mg under the skin 1 (one) time per week., Starting 12/02/2023, Normal - Will stop Farxiga due to side effects and start back on Trulicity. Will follow up as scheduled on01/08/24. - Information provided in AVS on new medication. 2. Medication side effects - Will stop Farxiga due to side effects and start back on Trulicity. Will follow up as scheduled on01/08/24. - Information provided in AVS on new medication. 3. Vaginal yeast infection - fluconazole (Diflucan) 150 MG tablet; Take 1 tablet (150 mg) by mouth Once for 1 dose., Starting 12/02/2023, Normal Follow up in 5 weeks (on 01/08/2024) for Next scheduled follow-up. SUBJECTIVE/OBJECTIVE: FERN - Karin presents today with concerns of recurring vaginal itching and discharge. Symptoms havebeen occurring intermittently since starting Farxiga for management of her poorly controlled diabetes back in September of this year. Wants to stop the Farxiga and start back on Trulicity instead. Was onthe Trulicity in the past and did well on it but stopped due to cost. Was told by her insurance that it is now covered. Review of Systems Constitutional: Negative for chills and fever. Respiratory: Negative for shortness of breath. Cardiovascular: Negative for chest pain. Gastrointestinal: Negative for abdominal distention and abdominal pain. Endocrine: Negative for polydipsia, polyphagia and polyuria. Genitourinary: Positive for vaginal discharge. Vitals: 12/02/23 1441 BP: 124/70 Pulse: 90 Resp: 20 Temp: 36.7 C (98 F) TempSrc: Infrared SpO2: 93% Weight: 256 lb 9.6 oz (116 kg) Body mass index is 44.74 kg/m . Physical Exam Constitutional: General: She is not in acute distress. Appearance: She is not ill-appearing or diaphoretic. Cardiovascular: Rate and Rhythm: Normal rate and regular rhythm. Heart sounds: Normal heart sounds. No murmur heard. No friction rub. Pulmonary: Effort: Pulmonary effort is normal. Genitourinary: Skin: General: Skin is warm. Neurological: Mental Status: She is alert and oriented to person, place, and time. Psychiatric: Mood and Affect: Mood normal. Behavior: Behavior normal. Thought Content: Thought content normal. Judgment: Judgment normal. An electronic signature was used to authenticate this note. IRISH Ramirez CNP 12/02/2023 2:59 PM * Moni Angel - 12/02/2023 2:40 PM EDT Patient was identified by name and Date of . documented in this encounterSSamaritan North Health [id number] Telephone encounter Note* Telephone Encounter - Nubia Dodson MA - 12/02/2023 8:38 AM EDT Will send mychart message. [id number] Miscellaneous Notes* Telephone Encounter - Nbuia Dodson MA - 12/02/2023 8:38 AM EDT Will send mychart message. * Telephone Encounter - Nubia Dodson MA - 12/02/2023 8:37 AM EDT Called pt, line is busy. * Telephone Encounter - Nubia Dodson MA - 12/01/2023 10:02 AM EDT Called pt, line is busy. * Telephone Encounter - Nubia Dodson MA - 11/30/2023 11:35 AM EDT Images from the original note were not included. IRISH Ramirez CNP [facility] Clinical Support Staff1 hour ago (10:23 AM) Recommend doing trial off of Farxiga leading up to appointment and see how symptoms respond. Called pt, line is busy. * Telephone Encounter - IRISH Ramirez CNP - 11/30/2023 10:23 AM EDT Recommend doing trial off of Farxiga leading up to appointment and see how symptoms respond. * Telephone Encounter - Evie Fuller RN - 11/30/2023 9:35 AM EDT S Patient calling with recurring yeast B since starting Farxiga A Patient calling with recurrent yeast symptoms. States she believes it the farxiga or blood sugar.Blood sugar this morning was 199. Was given diflucan a while back, states it helped a little but never went away and now has been back for several weeks. R Patient scheduled for soonest appt with Rafaela Friday 12/01. Please review and follow up with patient with additional care advice if needed. Arrival instruction given and advised to call back witha new or worsening symptoms. Reason for Disposition Symptoms of a yeast infection' (i.e., itchy, white discharge, not bad smelling) and not improved > 3 days following Care Advice Protocols used: Vaginal Zeirkuyaq-QNARG-PW documented in this encounterSSamaritan North Health [id number] Telephone encounter Note* Telephone Encounter - Nubia Dodson MA - 12/02/2023 8:37 AM EDT Called pt, line is busy. [facility] [id number] Telephone encounter Note* Telephone Encounter - Nubia Dodson MA - 12/01/2023 10:02 AM EDT Called pt, line is busy. [facility] [id number] Miscellaneous Notes* Telephone Encounter - Nubia Dodson MA - 12/01/2023 10:02 AM EDT Called pt, line is busy. * Telephone Encounter - Nubia Dodson MA - 11/30/2023 11:35 AM EDT Images from the original note were not included. IRISH Ramirez CNP [facility] Clinical Support Staff1 hour ago (10:23 AM) Recommend doing trial off of Farxiga leading up to appointment and see how symptoms respond. Called pt, line is busy. * Telephone Encounter - IRISH Ramirez CNP - 11/30/2023 10:23 AM EDT Recommend doing trial off of Farxiga leading up to appointment and see how symptoms respond. * Telephone Encounter - Evie Fuller RN - 11/30/2023 9:35 AM EDT S Patient calling with recurring yeast B since starting Farxiga A Patient calling with recurrent yeast symptoms. States she believes it the farxiga or blood sugar.Blood sugar this morning was 199. Was given diflucan a while back, states it helped a little but never went away and now has been back for several weeks. R Patient scheduled for soonest appt with Rafaela Friday 12/01. Please review and follow up with patient with additional care advice if needed. Arrival instruction given and advised to call back witha new or worsening symptoms. Reason for Disposition Symptoms of a yeast infection' (i.e., itchy, white discharge, not bad smelling) and not improved > 3 days following Care Advice Protocols used: Vaginal Cvzodymzl-FZZSA-CR documented in this [facility]05-13-2024 Telephone encounter Note* Telephone Encounter - Nubia Dodson MA - 11/30/2023 11:35 AM EDT Images from the original note were not included. IRISH Ramirez CNP [facility] [place] Clinical Support Staff1 hour ago (10:23 AM) Recommend doing trial off of Farxiga leading up to appointment and see how symptoms respond. Called pt, line is busy. [facility] [id number] Miscellaneous Notes* Telephone Encounter - Nubia Dodson MA - 11/30/2023 11:35 AM EDT Images from the original note were not included. IRISH Ramirez CNP [facility] Clinical Support Staff1 hour ago (10:23 AM) Recommend doing trial off of Farxiga leading up to appointment and see how symptoms respond. Called pt, line is busy. * Telephone Encounter - IRISH Ramirez CNP - 11/30/2023 10:23 AM EDT Recommend doing trial off of Farxiga leading up to appointment and see how symptoms respond. * Telephone Encounter - Evie Fuller RN - 11/30/2023 9:35 AM EDT S Patient calling with recurring yeast B since starting Farxiga A Patient calling with recurrent yeast symptoms. States she believes it the farxiga or blood sugar.Blood sugar this morning was 199. Was given diflucan a while back, states it helped a little but never went away and now has been back for several weeks. R Patient scheduled for soonest appt with Rafaela Friday 12/01. Please review and follow up with patient with additional care advice if needed. Arrival instruction given and advised to call back witha new or worsening symptoms. Reason for Disposition Symptoms of a yeast infection' (i.e., itchy, white discharge, not bad smelling) and not improved > 3 days following Care Advice Protocols used: Vaginal Mhwjlntxt-EOYTL-JS documented in this encounterSSamaritan North Health [id number] Telephone encounter Note* Telephone Encounter - IRISH Ramirez CNP - 11/30/2023 10:23 AM EDT Recommend doing trial off of Farxiga leading up to appointment and see how symptoms respond. [facility] [id number] Telephone encounter Note* Telephone Encounter - Evie Fuller RN - 11/30/2023 9:35 AM EDT S Patient calling with recurring yeast B since starting Farxiga A Patient calling with recurrent yeast symptoms. States she believes it the farxiga or blood sugar.Blood sugar this morning was 199. Was given diflucan a while back, states it helped a little but never went away and now has been back for several weeks. R Patient scheduled for soonest appt with Rafaela Friday 12/01. Please review and follow up with patient with additional care advice if needed. Arrival instruction given and advised to call back witha new or worsening symptoms. Reason for Disposition Symptoms of a yeast infection' (i.e., itchy, white discharge, not bad smelling) and not improved > 3 days following Care Advice Protocols used: Vaginal Zixpnujfc-ULGQY-FK [facility] [id number] Telephone encounter Note* Telephone Encounter - Nidhi Huerta - 11/24/2023 12:52 PM EDT Medication name: levothyroxine (Synthroid, Levoxyl) 50 MCG tablet Medication dosage: 50 mg (Miligrams Monthly quantity needed: 90 How many day supply requestin days Medication route: oral (PO) Medication administration time(s): daily If taking medication PRN, reason for taking medication: N/A If this is a controlled substance do you receive this or any other controlled medication from any other doctor or facility: No Ordering provider: Rafaela Castanon Date of last office visit: 10/05/2023 Date of next office visit: 01/08/2024 Date of last refill: (see medication tab): 06/09/2023 Updated/Validated preferred pharmacy: Yes Patient instructed to contact the pharmacy prior to picking up the medication: No [facility] [id number] Miscellaneous Notes* Telephone Encounter - Nidhi Huerta - 11/24/2023 12:52 PM EDT Medication name: levothyroxine (Synthroid, Levoxyl) 50 MCG tablet Medication dosage: 50 mg (Miligrams Monthly quantity needed: 90 How many day supply requestin days Medication route: oral (PO) Medication administration time(s): daily If taking medication PRN, reason for taking medication: N/A If this is a controlled substance do you receive this or any other controlled medication from any other doctor or facility: No Ordering provider: Rafaela Castanon Date of last office visit: 10/05/2023 Date of next office visit: 01/08/2024 Date of last refill: (see medication tab): 06/09/2023 Updated/Validated preferred pharmacy: Yes Patient instructed to contact the pharmacy prior to picking up the medication: No documented in this encounterSSamaritan North Health [id number] Telephone encounter Note* Telephone Encounter - IRISH Mann CNP - 11/16/2023 11:07 AM EDT Reviewed chart. Refill appropriate. RX sent. OARRS reviewed and consistent with treatment plan [facility] [id number] Miscellaneous Notes* Telephone Encounter - IRISH Mann CNP - 11/16/2023 11:07 AM EDT Reviewed chart. Refill appropriate. RX sent. OARRS reviewed and consistent with treatment plan * Telephone Encounter - Nubia Dodson MA - 11/16/2023 8:38 AM EDT [facility] 08/24/23 * Telephone Encounter - Marie Lemon - 11/16/2023 8:03 AM EDT Ordering provider: Date of last office visit: 10/05/2023 Date of next office visit: 01/08/2024 Updated/Validated preferred pharmacy: Yes [facility] Patient instructed to contact the pharmacy prior to picking up the medication: Yes (1) Medication name: gabapentin (Neurontin) 100 MG capsule Medication dosage: Monthly quantity needed: 120 How many day supply requestin days Medication route: oral (PO) Medication administration time(s): 2 capsules 2 times a day If taking medication PRN, reason for taking medication: na If this is a controlled substance do you receive this or any other controlled medication from any other doctor or facility: No Date of last refill (see medication tab): 10/05/2023 (2) Medication name: atorvastatin (Lipitor) 40 MG tablet Medication dosage: Monthly quantity needed: 30 How many day supply requestin days Medication route: oral (PO) Medication administration time(s): daily If taking medication PRN, reason for taking medication: N/A If this is a controlled substance do you receive this or any other controlled medication from any other doctor or facility: No Date of last refill (see medication tab): 05/11/2023 documented in this encounterSSamaritan North Health CenterUbezpt68-89-5924 Telephone encounter Note* Telephone Encounter - IRISH Mann CNP - 11/16/2023 11:05 AM EDT Reviewed chart. Refill appropriate. RX sent. [facility] [id number] Miscellaneous Notes* Telephone Encounter - IRISH Mann CNP - 11/16/2023 11:05 AM EDT Reviewed chart. Refill appropriate. RX sent. * Telephone Encounter - Le Vogt - 11/16/2023 8:31 AM EDT Ordering provider: Romulo Latif MD Date of last office visit: 10/05/23 Date of next office visit: 01/08/24 Updated/Validated preferred pharmacy: Yes [facility] [address] [place] [address] Patient instructed to contact the pharmacy prior to picking up the medication: Yes (1) Medication name: metoprolol tartrate (Lopressor) Medication dosage: 100 mg (Miligrams Monthly quantity needed: 180 How many day supply requestin days Medication route: oral (PO) Medication administration time(s): 2 times a day (BID) If taking medication PRN, reason for taking medication: If this is a controlled substance do you receive this or any other controlled medication from any other doctor or facility: No Date of last refill (see medication tab): 05/11/23 (2) Medication name: OneTouch Verio test strip Medication dosage: Monthly quantity needed: 100 each How many day supply requestin days Medication route: Medication administration time(s): 3 times a day (TID) If taking medication PRN, reason for taking medication: If this is a controlled substance do you receive this or any other controlled medication from any other doctor or facility: No Date of last refill (see medication tab): 10/27/23 documented in this encounterSSamaritan North Health [id number] Telephone encounter Note* Telephone Encounter - Nubia Dodson MA - 11/16/2023 8:38 AM EDT [facility]SA 08/24/23 [id number] Telephone encounter Note* Telephone Encounter - Le Vogt - 11/16/2023 8:31 AM EDT Ordering provider: Romulo Latif MD Date of last office visit: 10/05/23 Date of next office visit: 01/08/24 Updated/Validated preferred pharmacy: Yes [facility] [address] [place] [address] Patient instructed to contact the pharmacy prior to picking up the medication: Yes (1) Medication name: metoprolol tartrate (Lopressor) Medication dosage: 100 mg (Miligrams Monthly quantity needed: 180 How many day supply requestin days Medication route: oral (PO) Medication administration time(s): 2 times a day (BID) If taking medication PRN, reason for taking medication: If this is a controlled substance do you receive this or any other controlled medication from any other doctor or facility: No Date of last refill (see medication tab): 05/11/23 (2) Medication name: Anabela Simmons test strip Medication dosage: Monthly quantity needed: 100 each How many day supply requestin days Medication route: Medication administration time(s): 3 times a day (TID) If taking medication PRN, reason for taking medication: If this is a controlled substance do you receive this or any other controlled medication from any other doctor or facility: No Date of last refill (see medication tab): 10/27/23 [id number] Telephone encounter Note* Telephone Encounter - Marie Lemon - 11/16/2023 8:03 AM EDT Ordering provider: Date of last office visit: 10/05/2023 Date of next office visit: 01/08/2024 Updated/Validated preferred pharmacy: Yes [facility] [address] [place] [address] Patient instructed to contact the pharmacy prior to picking up the medication: Yes (1) Medication name: gabapentin (Neurontin) 100 MG capsule Medication dosage: Monthly quantity needed: 120 How many day supply requestin days Medication route: oral (PO) Medication administration time(s): 2 capsules 2 times a day If taking medication PRN, reason for taking medication: na If this is a controlled substance do you receive this or any other controlled medication from any other doctor or facility: No Date of last refill (see medication tab): 10/05/2023 (2) Medication name: atorvastatin (Lipitor) 40 MG tablet Medication dosage: Monthly quantity needed: 30 How many day supply requestin days Medication route: oral (PO) Medication administration time(s): daily If taking medication PRN, reason for taking medication: N/A If this is a controlled substance do you receive this or any other controlled medication from any other doctor or facility: No Date of last refill (see medication tab): 05/11/2023 [facility] [id number] Telephone encounter Note* Telephone Encounter - Romulo Latif MD - 11/05/2023 2:10 PM EDT Thank you [facility] [id number] Miscellaneous Notes* Telephone Encounter - Romulo Latif MD - 11/05/2023 2:10 PM EDT Thank you * Telephone Encounter - Nubia Dodson MA - 11/05/2023 1:19 PM EDT Looks like Rafaela placed one yesterday to Dr. Montelongo. * Telephone Encounter - Romulo Latif MD - 11/05/2023 12:31 PM EDT Needs referral for colonoscopy. Does she have a preference where we send her? * Telephone Encounter - Nubia Dodson MA - 11/05/2023 11:50 AM EDT Notified. She did call them and they did not believe this would cause a false positive either. * Telephone Encounter - Romulo Latif MD - 11/05/2023 11:43 AM EDT I really do not believe the delay in mailing would cause a false positive but I would recommend that you call the customer service that [employer]. * Telephone Encounter - Anette Bowen RN - 11/05/2023 10:58 AM EDT S: Patient spoke with [facility] nurse regarding states her Cologuard sample test. B: Onset of symptoms/concern: completed 1 1/2 weeks ago. A: Patient states sample was ready for over 24 hours before UPS picked up her sample. Patient is asking if because of the delay in mailing could this give a false positive result? R: [facility], phone number provided. Advised message will be sent to Dr Latif too. Reviewed due to positive results still needs further evaluation. No further needs at this time. Patient instructed to call back with any further questions or concerns. Reason for Disposition Requesting lab results and adult stable (no new symptoms, not worsening) Protocols used: Information Only Call - No Sdmdoj-VPRBW-HE documented in this encounterSKaren [place] [id number] Telephone encounter Note* Telephone Encounter - Nubia Dodson MA - 11/05/2023 1:19 PM EDT Looks like Rafaela placed one yesterday to Dr. Montelongo. [place] [id number] Telephone encounter Note* Telephone Encounter - Romulo Latif MD - 11/05/2023 12:31 PM EDT Needs referral for colonoscopy. Does she have a preference where we send her? [address]Fozuiu84-02-1270 Telephone encounter Note* Telephone Encounter - Nubia Dodson MA - 11/05/2023 11:50 AM EDT Notified. She did call them and they did not believe this would cause a false positive either. [id number] Telephone encounter Note* Telephone Encounter - Romulo Latif MD - 11/05/2023 11:43 AM EDT I really do not believe the delay in mailing would cause a false positive but I would recommend that you call the customer service that [employer]. [place] [id number] Telephone encounter Note* Telephone Encounter - Anette Bowen RN - 11/05/2023 10:58 AM EDT S: Patient spoke with [facility] nurse regarding states her Cologuard sample test. B: Onset of symptoms/concern: completed 1 1/2 weeks ago. A: Patient states sample was ready for over 24 hours before UPS picked up her sample. Patient is asking if because of the delay in mailing could this give a false positive result? R: Discussed calling [employer] customer service, phone number provided. Advised message will be sent to Dr Latif too. Reviewed due to positive results still needs further evaluation. No further needs at this time. Patient instructed to call back with any further questions or concerns. Reason for Disposition Requesting lab results and adult stable (no new symptoms, not worsening) Protocols used: Information Only Call - No Qvgmhf-PSXGT-NP [place] [id number] Telephone encounter Note* Telephone Encounter - Romulo Latif MD - 10/27/2023 4:09 PM EDT Agree, thank you [place] [id number] Miscellaneous Notes* Telephone Encounter - Romulo Latif MD - 10/27/2023 4:09 PM EDT Agree, thank you * Telephone Encounter - Pricila Ramirez RN - 10/27/2023 1:31 PM EDT S: Patient spoke with [facility] nurse regarding diarrhea. B: Onset of symptoms since 10/25/23. A: Taking Farziga and having diarrhea. L flank area is sore, urine clear, no urinary sx's. L flank area rates the pain as mild, having, 2-3 stools a day feels it might be from the meds. Has been on Farxiga 10/25/23. R: Home care at his point, encourage fluids, if sx's change or get worse to call back. Patient understands care advice. No further needs at this time. Patient instructed to call back with new or worsening symptoms. Reason for Disposition MILD-MODERATE diarrhea (e.g., 1-6 times / day more than normal) Protocols used: Griqyamz-MBVOW-EV documented in this encounterSSamaritan North Health [id number] Telephone encounter Note* Telephone Encounter - Pricila Ramirez RN - 10/27/2023 1:31 PM EDT S: Patient spoke with [facility] nurse regarding diarrhea. B: Onset of symptoms since 10/25/23. A: Taking Farziga and having diarrhea. L flank area is sore, urine clear, no urinary sx's. L flank area rates the pain as mild, having, 2-3 stools a day feels it might be from the meds. Has been on Farxiga 10/25/23. R: Home care at his point, encourage fluids, if sx's change or get worse to call back. Patient understands care advice. No further needs at this time. Patient instructed to call back with new or worsening symptoms. Reason for Disposition MILD-MODERATE diarrhea (e.g., 1-6 times / day more than normal) Protocols used: Bjynmiup-SKJGO-GG [facility] [id number] Telephone encounter Note* Telephone Encounter - Nubia Dodson MA - 10/13/2023 9:41 AM EDT Images from the original note were not included. Lisbeth Bowen 10/12/23 2:32 PM Note [facility] 10/09/23 10:45 AM Note Called Karin with no answer. LM to return my call. I strongly encouraged she start taking this medication. Her blood sugars have been poorly controlled for a very long time and, I believe, the risksof having her diabetes remain poorly controlled outweighs the risks of starting the new medication. Message released to patient as written. Patient's further questions if applicable: Pt stated that she would try it but if she starts havingside effects she will call the doctor to let her know. Were all questions from office addressed or relayed to the patient from encounter: Yes [facility] [id number] Miscellaneous Notes* Telephone Encounter - Nubia Dodson MA - 10/13/2023 9:41 AM EDT Images from the original note were not included. Lisbeth MURILLO 10/12/23 2:32 PM Note [facility] 10/09/23 10:45 AM Note Called Karin with no answer. LM to return my call. I strongly encouraged she start taking this medication. Her blood sugars have been poorly controlled for a very long time and, I believe, the risksof having her diabetes remain poorly controlled outweighs the risks of starting the new medication. Message released to patient as written. Patient's further questions if applicable: Pt stated that she would try it but if she starts havingside effects she will call the doctor to let her know. Were all questions from office addressed or relayed to the patient from encounter: Yes * Telephone Encounter - Nubia Dodson MA - 10/12/2023 11:10 AM EDT Images from the original note were not included. [facility]3 days ago Called Karin with no answer. LM to return my call. I strongly encouraged she start taking this medication. Her blood sugars have been poorly controlled for a very long time and, I believe, the risksof having her diabetes remain poorly controlled outweighs the risks of starting the new medication. Left a message to return call. * Telephone Encounter - IRISH Ramirez CNP - 10/09/2023 10:43 AM EDT Called Karin with no answer. LM to return my call. I strongly encouraged she start taking this medication. Her blood sugars have been poorly controlled for a very long time and, I believe, the risksof having her diabetes remain poorly controlled outweighs the risks of starting the new medication. * Telephone Encounter - Leisa Huntley RN - 10/09/2023 9:01 AM EDT S: Patient spoke with [facility] nurse regarding Farxiga B: prescribed 10/06 A: Patient calling with concerns with taking Farxiga states she looked into the side effects and isconcerned with that and wanting to know Provider's opinion on side effects. R: Advised Patient that message would be sent to Provider regarding her questions and concerns. Patient has no further needs at this time. Reason for Disposition Caller has NON-URGENT medicine question about med that PCP or specialist prescribed and triager unable to answer question Protocols used: Medication Question [id number] documented in this [facility]03-25-2024 Telephone encounter Note* Telephone Encounter - Nubia Dodson MA - 10/12/2023 11:10 AM EDT Images from the original note were not included. IRISH Ramirez CNP [facility] Clinical Support Staff3 days ago Called Karin with no answer. LM to return my call. I strongly encouraged she start taking this medication. Her blood sugars have been poorly controlled for a very long time and, I believe, the risksof having her diabetes remain poorly controlled outweighs the risks of starting the new medication. Left a message to return call. [id number] Miscellaneous Notes* Telephone Encounter - Nubia Dodson MA - 10/12/2023 11:10 AM EDT Images from the original note were not included. IRISH Ramirez CNP [facility] Clinical Support Staff3 days ago Called Karin with no answer. LM to return my call. I strongly encouraged she start taking this medication. Her blood sugars have been poorly controlled for a very long time and, I believe, the risksof having her diabetes remain poorly controlled outweighs the risks of starting the new medication. Left a message to return call. * Telephone Encounter - IRISH Ramirez CNP - 10/09/2023 10:43 AM EDT Called Karin with no answer. LM to return my call. I strongly encouraged she start taking this medication. Her blood sugars have been poorly controlled for a very long time and, I believe, the risksof having her diabetes remain poorly controlled outweighs the risks of starting the new medication. * Telephone Encounter - Leisa Huntley RN - 10/09/2023 9:01 AM EDT S: Patient spoke with [facility] nurse regarding Farxiga B: prescribed 10/06 A: Patient calling with concerns with taking Farxiga states she looked into the side effects and isconcerned with that and wanting to know Provider's opinion on side effects. R: Advised Patient that message would be sent to Provider regarding her questions and concerns. Patient has no further needs at this time. Reason for Disposition Caller has NON-URGENT medicine question about med that PCP or specialist prescribed and triager unable to answer question Protocols used: Medication Question [id number] documented in this encounterSSamar[facility] Health [id number] Telephone encounter Note* Telephone Encounter - IRISH Ramirez CNP - 10/09/2023 10:43 AM EDT Called Karin with no answer. LM to return my call. I strongly encouraged she start taking this medication. Her blood sugars have been poorly controlled for a very long time and, I believe, the risksof having her diabetes remain poorly controlled outweighs the risks of starting the new medication. [facility] [id number] Miscellaneous Notes* Telephone Encounter - IRISH Ramirez CNP - 10/09/2023 10:43 AM EDT Called Karin with no answer. LM to return my call. I strongly encouraged she start taking this medication. Her blood sugars have been poorly controlled for a very long time and, I believe, the risksof having her diabetes remain poorly controlled outweighs the risks of starting the new medication. * Telephone Encounter - Leisa Huntley RN - 10/09/2023 9:01 AM EDT S: Patient spoke with [facility] nurse regarding Farxiga B: prescribed 10/06 A: Patient calling with concerns with taking Farxiga states she looked into the side effects and isconcerned with that and wanting to know Provider's opinion on side effects. R: Advised Patient that message would be sent to Provider regarding her questions and concerns. Patient has no further needs at this time. Reason for Disposition Caller has NON-URGENT medicine question about med that PCP or specialist prescribed and triager unable to answer question Protocols used: Medication Question [id number] documented in this [facility]03-22-2024 Telephone encounter Note* Telephone Encounter - Leisa Huntley RN - 10/09/2023 9:01 AM EDT S: Patient spoke with [facility] nurse regarding Farxiga B: prescribed 10/06 A: Patient calling with concerns with taking Farxiga states she looked into the side effects and isconcerned with that and wanting to know Provider's opinion on side effects. R: Advised Patient that message would be sent to Provider regarding her questions and concerns. Patient has no further needs at this time. Reason for Disposition Caller has NON-URGENT medicine question about med that PCP or specialist prescribed and triager unable to answer question Protocols used: Medication Question [id number] [facility] [id number] Telephone encounter Note* Telephone Encounter - Rosa Gorman RN - 10/07/2023 10:16 AM EDT S: Pt called [facility] d/t Symptoms/Concerns: pt recently got the shingles vaccine and she is freezing now (not sure if that is a side effect) B: [facility] RN attempted to call patient A No contact R: Left VM for pt to call back with any further questions or concerns. Reason for Disposition Message left on unidentified voice mail. Phone number verified. Protocols used: No Contact or Duplicate Contact [id number] [facility] [id number] Miscellaneous Notes* Telephone Encounter - Rosa Gorman RN - 10/07/2023 10:16 AM EDT S: Pt called [facility] d/t Symptoms/Concerns: pt recently got the shingles vaccine and she is freezing now (not sure if that is a side effect) B: BIANCA RN attempted to call patient A No contact R: Left VM for pt to call back with any further questions or concerns. Reason for Disposition Message left on unidentified voice mail. Phone number verified. Protocols used: No Contact or Duplicate Contact [id number] documented in this encounterSSamaritan North Health [id number] Telephone encounter Note* Telephone Encounter - Lisbeth Bowen - 10/07/2023 8:06 AM EDT Message released to patient as written. Patient's further questions if applicable: N/A Were all questions from office addressed or relayed to the patient from encounter: Yes [facility] [id number] Miscellaneous Notes* Telephone Encounter - Lisbeth Bowen - 10/07/2023 8:06 AM EDT Message released to patient as written. Patient's further questions if applicable: N/A Were all questions from office addressed or relayed to the patient from encounter: Yes * Telephone Encounter - IRISH Ramirez CNP - 10/07/2023 7:01 AM EDT Rx sent for Farxiga for a 90 day supply. Drop off home blood sugars for review in 2 weeks. * Telephone Encounter - Ananya Craig - 10/06/2023 1:33 PM EDT Message released to patient as written. Patient's further questions if applicable: Pt spoke with her insurance company and her co pay for Farxiga is only $11 for a 90 day supply. Please advise. Thank you. Were all questions from office addressed or relayed to the patient from encounter: Yes * Telephone Encounter - Soha Pérez - 10/06/2023 12:36 PM EDT Message released to patient as written. Patient's further questions if applicable: pt is going to check with her insurance how much it would cost her, but would like prescription sent. Were all questions from office addressed or relayed to the patient from encounter: Confirmed pts pharmacy: [facility] [address] [place] [address] * Telephone Encounter - Nubia Dodson MA - 10/06/2023 11:09 AM EDT ----- Message from IRISH Ramirez CNP sent at 10/06/2023 10:43 AM EDT ----- Hemoglobin A1c has increased and is up to 8.5%. Recommend starting on Farxiga for better blood sugar control and heart benefits. Blood sugar was 175. Kidney function is normal. Left a message to return call. Please document if patient wants to start on the farxiga and if so, please verify pharmacy. documented in this encounterSSamaritan North Health [id number] Telephone encounter Note* Telephone Encounter - IRISH Ramirez CNP - 10/07/2023 7:01 AM EDT Rx sent for Farxiga for a 90 day supply. Drop off home blood sugars for review in 2 weeks. [facility] [id number] Telephone encounter Note* Telephone Encounter - Ananya Craig - 10/06/2023 1:33 PM EDT Message released to patient as written. Patient's further questions if applicable: Pt spoke with her insurance company and her co pay for Farxiga is only $11 for a 90 day supply. Please advise. Thank you. Were all questions from office addressed or relayed to the patient from encounter: Yes [facility] [id number] Telephone encounter Note* Telephone Encounter - Soha Pérez - 10/06/2023 12:36 PM EDT Message released to patient as written. Patient's further questions if applicable: pt is going to check with her insurance how much it would cost her, but would like prescription sent. Were all questions from office addressed or relayed to the patient from encounter: Confirmed pts pharmacy: [facility] [address] [place] [address] [facility] [id number] Telephone encounter Note* Telephone Encounter - Nubia Dodson MA - 10/06/2023 11:09 AM EDT ----- Message from IRISH Ramirez CNP sent at 10/06/2023 10:43 AM EDT ----- Hemoglobin A1c has increased and is up to 8.5%. Recommend starting on Farxiga for better blood sugar control and heart benefits. Blood sugar was 175. Kidney function is normal. Left a message to return call. Please document if patient wants to start on the farxiga and if so, please verify pharmacy. [facility] [id number] History of Present illness Narrative* Nallely Wall MA - 10/05/2023 9:00 AM EDT Patient verified by last name and . * IRISH Ramirez CNP - 10/05/2023 9:00 AM EDT Images from the original note were not included. Patient Yue Ibrahim 63 y.o. female, presents today with Chief Complaint Patient presents with Follow-up 3 MONTH DM Health Maintenance Dm eye- not done Dm dental- [facility] [place] Mammo- agrees Pp: Tdap- agrees Zoster- agrees HIV/Hep C screen- declines Blood Work . HPI- Yue Ibrahim presents today for follow up on HER diabetes and other chronic health conditions. Previous hemoglobin A1c was 8% on 06/17/23. It was recommended she add on Rybelsus for better blood sugar control and ended up not wanting to take this due to side effects she saw about this medication on a television commercial. Diabetes Mellitus Type II: Known diabetic complications: peripheral neuropathy and cardiovascular disease- actively follows upwith cardiology and is scheduled to see them again in October. Taking Gabapentin- would like a dose increase. Cardiovascular risk factors: diabetes mellitus, dyslipidemia, hypertension, obesity (BMI >= 30 kg/m2), and sedentary lifestyle Current diabetic medications include Metformin . Eye exam current (within one year): Yes - Radha Schaeferestela December 2022 Dental exam current (within one year): Yes - 06/23/23 Weight trend: has gained 7 pounds over the past 3 months Prior visit with anesthesiology technologist: No Current diet: in general, an unhealthy diet Current exercise: none Current monitoring regimen: home blood tests - daily Home blood sugar records: fasting range: 130-199 and postprandial range: 170's Any episodes of hypoglycemia? No Is She on CLAUDIA inhibitor or angiotensin II receptor yeyo? Yes losartan (Cozaar)- blood pressure is stable today at 126/72 Currently on statin therapy? Yes - Atorvastatin Last urine microalbumin was less than 0.2 mg/L on 11/17/22. Last foot exam was 11/17/22. Health Maintenance: Colon cancer screening: Ashly 09/29/20- would like a new order placed since she has hit her 3 year kendall. Would like a Tdap vaccination. Declines to be vaccinated for Hep B. Would like to be vaccinated for shingles. Declines screening for HIV and Hep C. Mammogram: 04/23/22- hadan order placed for repeat imaging in February 2023 but has not gotten this scheduled yet. Current on pneumonia vaccinations: PPSV23 on 08/25/18 and PCV13 on 11/15/21. Vaccinated for COVID-19 x6 with mostrecent dose on 05/23/23. Has had a hysterectomy and no longer gets pap smears. Echocardiogram: 03/27/23. RSV immunization: 06/19/23. Flu vaccination current: 05/23/23. Past Medical History: Diagnosis Date Abnormal weight gain Acute URI 12/19/2021 Cardiomyopathy (HCC) Cardiomyopathy (HCC) CHF (congestive heart failure) (HCC) CHF (congestive heart failure) (HCC) Diabetes (HCC) DJD (degenerative joint disease) Edema GERD (gastroesophageal reflux disease) Hypothyroidism Insomnia Knee pain [place] (myocardial infarction) (HCC) Nasal congestion 10/16/2022 Obesity Trapezius strain, unspecified laterality, initial encounter 07/18/2022 Type II or unspecified type diabetes mellitus without mention of complication, not stated as uncontrolled (HCC) Unspecified sleep apnea Past Surgical History: Procedure Laterality Date BUNIONECTOMY CARDIAC CATHETERIZATION 08/16/2019 CARDIAC CATHETERIZATION 04/2023 Stent Placement CARPAL TUNNEL RELEASE HEMORRHOID SURGERY DOPPLER-GUIDED LIGATION JOINT REPLACEMENT KNEE RIGHT TONSILLECTOMY AND ADENOIDECTOMY (HISTORICAL) TOTAL VAGINAL HYSTERECTOMY Family History Problem Relation Name Age of Onset Heart disease Brother Cancer Father Cancer Mother Diabetes Mother Heart disease Sister High Blood Pressure Father Asthma Brother Social History Socioeconomic History Marital status: Spouse name: Not on file Number of children: Not on file Years of education: Not on file Highest education level: Not on file Occupational History Not on file Tobacco Use Smoking status: Never Smokeless tobacco: Never Vaping Use Vaping Use: Never used Substance and Sexual Activity Alcohol use: No Alcohol/week: 0.0 standard drinks of alcohol Drug use: No Sexual activity: Not on file Other Topics Concern Not on file Social History Narrative Not on file Social Determinants of Health Financial Resource Strain: Not on file Food Insecurity: Not on file Transportation Needs: Not on file Physical Activity: Not on file Stress: Not on file Social Connections: Not on file Intimate Partner Violence: Not on file Housing Stability: Not on file Health Maintenance Topic Date Due Mammogram 04/23/2023 Medicare Advantage Annual Wellness Visit 07/20/2023 Colorectal Cancer Screening 10/11/2023 Depression Screening 11/18/2023 Diabetes: Foot Exam 11/18/2023 DTaP/Tdap/Td Vaccines (1 - Tdap) 06/16/2024 (Originally 1979) Zoster Vaccines (1 of 2) 06/16/2024 (Originally 2010) HIV Screening 06/16/2024 (Originally 1960) Hepatitis C Screening 06/16/2024 (Originally 1978) TSH Level 11/18/2023 Lipid Panel 11/18/2023 Creatinine Level 03/18/2024 Potassium Level 03/18/2024 Echocardiogram 03/27/2024 Diabetes: Hemoglobin A1C 06/17/2024 Diabetes: Dental Exam 06/23/2024 Diabetes: Retinopathy Screening 12/18/2024 Pneumococcal Vaccine: Pediatrics (0 to 5 Years) and At-Risk Patients (6 to 64 Years) (3 of 3 - PPSV23 or PCV20) 2025 RSV Immunization aged 60 or older Completed MMR Vaccines Completed Influenza Vaccine Completed COVID-19 Vaccine Completed RSV Immunization under 20 Months Aged Out HIB Vaccines Aged Out Hepatitis B Vaccines Aged Out IPV Vaccines Aged Out Hepatitis A Vaccines Aged Out Meningococcal Vaccine Aged Out Rotavirus Vaccines Aged Out HPV Vaccines Aged Out Allergies Allergen Reactions Lisinopril Other Trimethoprim Sulfamethoxazole-Trimethoprim Hives and Rash Other reaction(s): Hives and/or rash Clarithromycin Hives Clindamycin Hives Nitrofurantoin Macrocrystal Sulfa Antibiotics Hives Other reaction(s): Hives and/or rash Clindamycin/Lincomycin Hives and Rash Other reaction(s): Rash Erythromycin Hives and Rash Nitrofurantoin Hives and Rash Review of Systems Constitutional: Negative for chills and fever. Respiratory: Negative for cough, chest tightness, shortness of breath and wheezing. Cardiovascular: Negative for chest pain, palpitations and leg swelling. Gastrointestinal: Negative for abdominal distention, abdominal pain and blood in stool. Endocrine: Negative for polydipsia, polyphagia and polyuria. Skin: Negative for color change, pallor, rash and wound. Neurological: Negative for dizziness and headaches. BP 126/72 Pulse 70 Ht 5' 3.5 (1.613 m) Wt 259 lb 3.2 oz (118 kg) SpO2 98% BMI 45.19 kg/m Physical Exam Constitutional: General: She is not in acute distress. Appearance: She is obese. She is not ill-appearing or diaphoretic. Neck: Vascular: No carotid bruit. Cardiovascular: Rate and Rhythm: Normal rate and regular rhythm. Pulses: Normal pulses. Heart sounds: Normal heart sounds. No murmur heard. No friction rub. Pulmonary: Effort: Pulmonary effort is normal. Breath sounds: Normal breath sounds. No wheezing, rhonchi or rales. Abdominal: General: Abdomen is protuberant. Bowel sounds are normal. Palpations: Abdomen is soft. There is no mass. Tenderness: There is no abdominal tenderness. Musculoskeletal: Cervical back: Neck supple. Right lower leg: No edema. Left lower leg: No edema. Skin: General: Skin is warm and dry. Coloration: Skin is not pale. Findings: No erythema or rash. Neurological: Mental Status: She is alert and oriented to person, place, and time. Psychiatric: Mood and Affect: Mood normal. Behavior: Behavior normal. Thought Content: Thought content normal. Judgment: Judgment normal. Assessment and Plan: 1. Diabetes mellitus type 2 in obese (CMS/HCC) ([facility]) ([facility]) - Hemoglobin A1c - Basic metabolic panel - Poorly controlled and non-complaint with medication management. Stressed importance of blood sugar control and healthy eating. - Will notify of blood work results and provide recommendations accordingly. Recommend Farxiga based on other co morbidities. 2. Class 3 severe obesity due to excess calories with serious comorbidity and body mass index (BMI)of 40.0 to 44.9 in adult ([facility]) - Basic metabolic panel - Encouraged a healthy diet and regular exercise. 3. Congestive heart failure, unspecified HF chronicity, unspecified heart failure type ([facility]) - Basic metabolic panel - Stable. Follow up with specialist as directed. 4. Cardiomyopathy, unspecified type ([facility]) - Basic metabolic panel - Stable. Follow up with specialist as directed. 5. Atherosclerosis of coronary artery of [place] heart without angina pectoris, unspecified vessel or lesion type - Basic metabolic panel - Stable. Follow up with specialist as directed. 6. Hyperlipidemia, unspecified hyperlipidemia type - Stable. Follow up with specialist as directed. Continue Atorvastatin as prescribed. 7. Primary hypertension - Basic metabolic panel - Stable with Losartan. Will continue current treatment plan. 8. Neuropathy of both feet - gabapentin (Neurontin) 100 MG capsule; Take 2 capsules (200 mg) by mouth 2 times daily., StartingMon 10/05/2023, Normal - Not well controlled. Will increase Gabapentin to 200 mg twice a day. - Rx sent. [place]ARRS report reviewed with no discrepancies. CSA signed in August 2023. 9. Need for Tdap vaccination - Tdap (BoostRIX) 5-2.5-18.5 LF-MCG/0.5 injection; Inject 0.5 mL into the shoulder, thigh, or buttocks Once for 1 dose., Starting 10/05/2023, Normal - Rx sent to local pharmacy. 10. Need for shingles vaccine - zoster vaccine-recombinant adjuvanted (Shingrix) 50 MCG/0.5ML vaccine; Inject 0.5 mL (50 mcg) into the shoulder, thigh, or buttocks Once for 1 dose. Repeat x1 in 2-6 months., Starting 10/05/2023, Normal - Rx sent to local pharmacy. 11. Screening for colon cancer - [facility]olog[facility] colon cancer screening Discussed use, benefit, and side effects of prescribed medications. Barriers to medication compliance addressed. All patient questions answered. Pt voiced understanding. Follow up in about 3 months (around 01/05/2024) for AWV. Outpatient Encounter Medications as of 10/05/2023 Medication Sig Dispense Refill ascorbic acid (Vitamin C) 250 MG tablet Take 500 mg by mouth daily. ASPIRIN 81 PO Take 81 mg by mouth. atorvastatin (Lipitor) 40 MG tablet Take 1 tablet (40 mg) by mouth daily. 90 tablet 1 Blood Glucose Calibration (OneTouch Verio) High solution calcium carbonate (Tums) 500 MG chewable tablet Chew 500 mg daily. clopidogrel (Plavix) 75 MG tablet Take 1 tablet by mouth once daily 90 tablet 0 coenzyme Q-10 10 MG capsule coenzyme Q10 Ubidecarenone Active 100 MG DAILY August 02, 2018 1:02pm 08-02-2018 [facility] ([id number]) furosemide (Lasix) 40 MG tablet ketoconazole (NIZOral) 2 % shampoo Shampoo daily, leave on for 5-10 minutes, then rinse. 120 mL 0 levothyroxine (Synthroid, Levoxyl) 50 MCG tablet Take 1 tablet (50 mcg) by mouth daily. 90 tablet 1 losartan (Cozaar) 50 MG tablet Take 1 tablet (50 mg) by mouth daily. 90 tablet 1 metFORMIN XR (Glucophage-XR) 500 MG 24 hr tablet Take 2 tablets (1,000 mg) by mouth in the morning and 2 tablets (1,000 mg) in the evening. Take with meals. 360 tablet 1 metoprolol tartrate (Lopressor) 100 MG tablet Take 1 tablet (100 mg) by mouth 2 times daily. 180 tablet 1 nitroglycerin (Nitrostat) 0.4 MG SL tablet every 5 minutes as needed for chest pain up to 3 doses total SABIATouch Verio test strip USE STRIP TO CHECK GLUCOSE THREE TIMES DAILY 100 each 1 Pharmacist Choice Lancets misc [DISCONTINUED] gabapentin (Neurontin) 100 MG capsule Take 1 capsule (100 mg) by mouth 2 times daily. 60 capsule 0 gabapentin (Neurontin) 100 MG capsule Take 2 capsules (200 mg) by mouth 2 times daily. 120 capsule 0 omeprazole (PriLOSEC) [address] capsule Take 1 capsule (20 mg) by mouth daily. Do not crush or chew.(Patient not taking: Reported on 10/01/2023) 60 capsule 3 Tdap (BoostRIX) 5-2.5-18.5 LF-MCG/0.5 injection Inject 0.5 mL into the shoulder, thigh, or buttocksOnce for 1 dose. 0.5 mL 0 zinc 100 MG tablet Take by mouth. zoster vaccine-recombinant adjuvanted (Shingrix) 50 MCG/0.5ML vaccine Inject 0.5 mL (50 mcg) into the shoulder, thigh, or buttocks Once for 1 dose. Repeat x1 in 2-6 months. 1 each 1 No facility-administered encounter medications on file as of 10/05/2023. IRISH Ramirez CNP 10/05/2023 9:35 AM documented in this [facility]02-05-2024 History of Present illness Narrative* Nubia Dodson MA - 08/24/2023 11:00 AM EST Patient was verified by name and . * IRISH Ramirez CNP - 08/24/2023 11:00 AM EST Images from the original note were not included. 08/24/2023 Yue Ibrahim (: 1960) is a 63 y.o. female , Established patient, here for evaluation ofthe following chief complaint(s): Foot Swelling (Bilateral foot pain and swelling ongoing) ASSESSMENT/PLAN: 1. Dependent edema - Provided reassurance that swelling is minimal. Discussed elevating her feet when sitting down andwatching her sodium intake. May continue Lasix as needed. 2. Neuropathy of both feet - gabapentin (Neurontin) 100 MG capsule; Take 1 capsule (100 mg) by mouth 2 times daily., Starting 08/24/2023, Until Tu08/23/2024, Normal - Will start on Gabapentin and see if this helps with her neuropathy symptoms. - OARRS report reviewed with no discrepancies. CSA signed today. - Information provided in AVS on new medication. 3. Bilateral bunions - Recommend following back up with podiatry. Follow up in 4 weeks (on 09/21/2023) for Next scheduled follow-up. SUBJECTIVE/OBJECTIVE: FERN Carty presents today with concerns of pain and swelling to both of her feet. This is a chronic issue for her but feels it has worsened over the past couple of weeks. Has Lasix she can take as needed and is not sure if this is helpful. 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 Hasbunireagan's and was told she may need surgical correction of these. Also has pain on the bottom of both of her feet that is a chronic issue. Has never been on Lyrica or Gabapentin. Denies swelling extending up into her legs or swelling in her fingers or abdomen. Review of Systems Respiratory: Negative for shortness of breath. Cardiovascular: Positive for leg swelling. Negative for chest pain. Gastrointestinal: Negative for abdominal distention. Musculoskeletal: Positive for arthralgias (feet). Vitals: 08/24/23 1048 08/24/23 1117 BP: (!) 146/84 128/78 Pulse: 73 SpO2: 96% Weight: 257 lb (117 kg) Height: 5' 3.5 (1.613 m) Body mass index is 44.81 kg/m . Physical Exam Constitutional: General: She is not in acute distress. Appearance: She is obese. She is not ill-appearing or diaphoretic. Cardiovascular: Rate and Rhythm: Normal rate and regular rhythm. Pulses: Normal pulses. Heart sounds: Normal heart sounds. Pulmonary: Effort: Pulmonary effort is normal. Musculoskeletal: Legs: Comments: Trace, non-pitting edema noted to the tops of both feet. Negative for swelling up into ankles or legs. Negative for erythema or open areas. Skin: General: Skin is warm and dry. Coloration: Skin is not pale. Findings: No erythema or rash. Neurological: Mental Status: She is alert. An electronic signature was used to authenticate this note. IRISH Ramirez CNP 08/24/2023 11:58 AM documented in this [facility]02-05-2024 Telephone encounter Note* Telephone Encounter - Rosa Gorman RN - 08/24/2023 8:42 AM EST S: pt calling [facility] d/t swelling to bilateral feet B: Symptoms started a couple weeks ago A: states over last couple weeks has been having swelling in feet. States right foot is worse than left. Mostly swelling is just in feet. Occasionally goes into ankles. Also has been having burning in feet. Bottom of feet feel tight, States has been taking furosemide 40 mg po. Takes as needed. Has been taking them off and on. R: Insurance verified. Bertha scheduled with Jason Castanon at 11:00 advised to come 10-15 minutes early bring insurance card id and medication list. Discusse elevation of feet. Pt advised to call back with worsening of symptoms, concern or questions. Pt verbalized understanding. Reason for Disposition Patient wants to be seen Protocols used: Leg Swelling and [id number] [id number] Miscellaneous Notes* Telephone Encounter - Rosa Gorman RN - 08/24/2023 8:42 AM EST S: pt calling [facility] d/t swelling to bilateral feet B: Symptoms started a couple weeks ago A: states over last couple weeks has been having swelling in feet. States right foot is worse than left. Mostly swelling is just in feet. Occasionally goes into ankles. Also has been having burning in feet. Bottom of feet feel tight, States has been taking furosemide 40 mg po. Takes as needed. Has been taking them off and on. R: Insurance verified. Bertha scheduled with Jason Castanon at 11:00 advised to come 10-15 minutes early bring insurance card id and medication list. Discusse elevation of feet. Pt advised to call back with worsening of symptoms, concern or questions. Pt verbalized understanding. Reason for Disposition Patient wants to be seen Protocols used: Leg Swelling and [id number] documented in this [facility]01-16-2024 Telephone encounter Note* Telephone Encounter - Ely Hernandez - 08/04/2023 10:44 AM EST Medication name: OneTouch Verio test strip-- USE STRIP TO CHECK GLUCOSE THREE TIMES DAILY- 90 days Medication dosage: Test strips Monthly quantity needed: 90 days How many day supply requestin days Medication route: oral (PO) Medication administration time(s): 3 times a day (TID) If taking medication PRN, reason for taking medication: N/A If this is a controlled substance do you receive this or any other controlled medication from any other doctor or facility: No Ordering provider: Dr. Latif Date of last office visit: 06-17-2023 Date of next office visit: 09-21-2023 Date of last refill: (see medication tab): 06-01-2023 Updated/Validated preferred pharmacy: Yes Patient instructed to contact the pharmacy prior to picking up the medication: Yes [id number] Miscellaneous Notes* Telephone Encounter - Ely Hernandez - 08/04/2023 10:44 AM EST Medication name: OneTouch Verio test strip-- USE STRIP TO CHECK GLUCOSE THREE TIMES DAILY- 90 days Medication dosage: Test strips Monthly quantity needed: 90 days How many day supply requestin days Medication route: oral (PO) Medication administration time(s): 3 times a day (TID) If taking medication PRN, reason for taking medication: N/A If this is a controlled substance do you receive this or any other controlled medication from any other doctor or facility: No Ordering provider: Dr. Latif Date of last office visit: 06-17-2023 Date of next office visit: 09-21-2023 Date of last refill: (see medication tab): 06-01-2023 Updated/Validated preferred pharmacy: Yes Patient instructed to contact the pharmacy prior to picking up the medication: Yes documented in this [facility]SS[facility] [id number] Telephone encounter Note* Telephone Encounter - Mariano Meng LPN - 08/04/2023 10:42 AM EST Prescription Request: Last medication check: 03/18/23 Last physical exam: 11/17/22 Next scheduled appointment: 09/21/23 Last date of refill on this medication 01/05/23 #90 1 refill [id number] Miscellaneous Notes* Telephone Encounter - Mariano Meng LPN - 08/04/2023 10:42 AM EST Prescription Request: Last medication check: 03/18/23 Last physical exam: 11/17/22 Next scheduled appointment: 09/21/23 Last date of refill on this medication 01/05/23 #90 1 refill documented in this [facility]01-04-2024 History of Present illness Narrative* Joaquina Chairez RN - 07/23/2023 4:13 PM EST Spoke to patient for update on patient assistance and she has decided that she would not be taking this medication as she has heard about negative side effects on television. * Joaquina Chairez RN - 06/23/2023 4:48 PM EST Applied for Pap through [employer] for the Rybelsus, requested 7 mg as we can get starting dose 3mg as a sample for the month of June but would like to get an answer from [employer] before we begin so that patient does not have to stop if not approved. LM for patient that the application was sent and to contact CHARLEE Kunz directly at [phone]. Will wait for decision in 48 hours documented in this [facility]12-06-2023 Telephone encounter Note* Telephone Encounter - Marie Fleming APRN - LICENSED LOAN OFFICER ASSISTANT - 06/24/2023 4:18 PM EST Noted thank you [id number] Miscellaneous Notes* Telephone Encounter - IRISH Mann CNP - 06/24/2023 4:18 PM EST Noted thank you * Telephone Encounter - Nubia Dodson MA - 06/19/2023 11:48 AM EST Notified patient. * Telephone Encounter - IRISH Mann CNP - 06/19/2023 11:42 AM EST Please call patient let her know while working on to see if we can help her get some assistance forthe medication * Telephone Encounter - Nidhi Huerta - 06/18/2023 12:59 PM EST Name of caller: Karin Contact phone number: [phone] Relationship to Patient: Provider: Rafaela Castanon Practice: [facility] Chief Complaint/Reason for Call: The patient is calling in stating the prescription for the medication called semaglutide (Rybelsus) 3 MG tablet Had a copay of $150.00 and she can't afford the medication. The patient is wondering if you can call in the other suggestion for the equivalent medication to her [facility]. Please advise. Best time of day caller can be reached: Any Patient advised that office/PCP has 24-48 business hours to return their call: No documented in this encounterSSamar[facility] [id number] Miscellaneous Notes* Telephone Encounter - IRISH Mann CNP - 06/24/2023 4:18 PM EST Noted thank you * Telephone Encounter - Nubia Dodson MA - 06/19/2023 11:48 AM EST Notified patient. * Telephone Encounter - IRISH Mann CNP - 06/19/2023 11:42 AM EST Please call patient let her know while working on to see if we can help her get some assistance forthe medication * Telephone Encounter - Nidhi Huerta - 06/18/2023 12:59 PM EST Name of caller: Karin Contact phone number: [phone] Relationship to Patient: Provider: Rafaela Castanon Practice: [facility] Chief Complaint/Reason for Call: The patient is calling in stating the prescription for the medication called semaglutide (Rybelsus) 3 MG tablet Had a copay of $150.00 and she can't afford the medication. The patient is wondering if you can call in the other suggestion for the equivalent medication to her [facility]. Please advise. Best time of day caller can be reached: Any Patient advised that office/PCP has 24-48 business hours to return their call: No documented in this [facility]12-05-2023 History of Present illness Narrative* Joaquina Chairez RN - 06/23/2023 4:48 PM EST Applied for Pap through [employer] for the Rybelsus, requested 7 mg as we can get starting dose 3mg as a sample for the month of June but would like to get an answer from [employer] before we begin so that patient does not have to stop if not approved. LM for patient that the application was sent and to contact CHARLEE Kunz directly at [phone]. Will wait for decision in 48 hours documented in this [facility]12-01-2023 Telephone encounter Note* Telephone Encounter - Nubia Dodson MA - 06/19/2023 11:48 AM EST Notified patient. [id number] Telephone encounter Note* Telephone Encounter - IRISH Mann CNP - 06/19/2023 11:42 AM EST Please call patient let her know while working on to see if we can help her get some assistance forthe medication [facility] [id number] Telephone encounter Note* Telephone Encounter - Nidhi Huerta - 06/18/2023 12:59 PM EST Name of caller: Karin Contact phone number: [phone] Relationship to Patient: Provider: Rafaela Castanon Practice: [facility] Chief Complaint/Reason for Call: The patient is calling in stating the prescription for the medication called semaglutide (Rybelsus) 3 MG tablet Had a copay of $150.00 and she can't afford the medication. The patient is wondering if you can call in the other suggestion for the equivalent medication to her [facility]. Please advise. Best time of day caller can be reached: Any Patient advised that office/PCP has 24-48 business hours to return their call: No [facility]11-29-2023 History of Present illness Narrative* Farzana Pang MA - 06/17/2023 1:40 PM EST 8.08Patient verified by last name and date of . * IRISH Ramirez CNP - 06/17/2023 1:40 PM EST Images from the original note were not included. Patient Yue Ibrahim 63 y.o. female, presents today with Chief Complaint Patient presents with Diabetes Follow-up 3 month Health Maintenance Pt refused- hiv/hep c screening, tdap vaccine, shingles vaccine Pt agree to- rsv at pharmacy Mammogram not scheduled yet- will give number to pt at appt Eye exam- done in spring at [facility] - will send for record Dental exam- sched 06/23/23 . HPI- Yue Ibrahim presents today for follow up on her diabetes and other chronic health conditions. Previous hemoglobin A1c was 7% on 03/18/23. Known diabetic complications: cerebrovascular disease- has established with a new internet and e business project manager ( is moving to the [place], [place] area). Is scheduled to see them again in 6 months Cardiovascular risk factors: diabetes mellitus, dyslipidemia, hypertension, obesity (BMI >= 30 kg/m2), and sedentary lifestyle Current diabetic medications include Metformin (could not afford Jardiance or Ozempic) Eye exam current (within one year): Yes - [facility] (around December) Dental exam current (within one year): No- scheduled on 06/23/23 Weight trend: stable Prior visit with anesthesiology technologist: No Current diet: in general, an unhealthy diet Current exercise: none- keeps saying she is going to sign up at the local recreation center- but has never gone- states she will go today to do this Current monitoring regimen: home blood tests - several times weekly- did not bring blood sugars in for review Home blood sugar records: fasting range: 140's and postprandial range: 200's Any episodes of hypoglycemia? No Is She on CLAUDIA inhibitor or angiotensin II receptor yeyo? Yes losartan (Cozaar)- blood pressure is stable today at 136/79 Currently on statin therapy? Yes - Atorvastatin Last urine microalbumin was less than 0.2 mg/L on 11/17/22. Last foot exam was 11/17/22. GERD: Continues to take her Omeprazole and feels symptoms are well controlled. Scalp Dermatitis: Will use Ketoconazole shampoo as needed and this helps. Needs a refill today. Health Maintenance: Colon cancer screening: Cologuard 09/29/20. Declines a Tdap vaccination. Declines to be vaccinated for Hep B. Declines to be vaccinated for shingles. Declines screening for HIV andHep C. Mammogram: 04/23/22- had an order placed for this year's imaging in February but has not gottenthis scheduled yet. Current on pneumonia vaccinations: PPSV23 on 08/25/18 and PCV13 on 11/15/21. Vaccin ated for COVID-19 x6 with most recent dose on 05/23/23. Has had a hysterectomy and no longer gets pap smears. Echocardiogram: will defer to internet and e business project manager. Plans to get the RSV vaccination at her local pharmacy. Flu vaccination current: 05/23/23. Past Medical History: Diagnosis Date Abnormal weight gain Acute URI 12/19/2021 Cardiomyopathy (HCC) Cardiomyopathy (HCC) CHF (congestive heart failure) (HCC) CHF (congestive heart failure) (HCC) Diabetes (HCC) DJD (degenerative joint disease) Edema GERD (gastroesophageal reflux disease) Hypothyroidism Insomnia Knee pain [place] (myocardial infarction) (HCC) Nasal congestion 10/16/2022 Obesity Trapezius strain, unspecified laterality, initial encounter 07/18/2022 Type II or unspecified type diabetes mellitus without mention of complication, not stated as uncontrolled (HCC) Unspecified sleep apnea Past Surgical History: Procedure Laterality Date BUNIONECTOMY CARDIAC CATHETERIZATION 08/16/2019 CARDIAC CATHETERIZATION 04/2023 Stent Placement CARPAL TUNNEL RELEASE HEMORRHOID SURGERY DOPPLER-GUIDED LIGATION JOINT REPLACEMENT KNEE RIGHT TONSILLECTOMY AND ADENOIDECTOMY (HISTORICAL) TOTAL VAGINAL HYSTERECTOMY Family History Problem Relation Name Age of Onset Heart disease Brother Cancer Father Cancer Mother Diabetes Mother Heart disease Sister High Blood Pressure Father Asthma Brother Social History Socioeconomic History Marital status: Spouse name: Not on file Number of children: Not on file Years of education: Not on file Highest education level: Not on file Occupational History Not on file Tobacco Use Smoking status: Never Smokeless tobacco: Never Vaping Use Vaping Use: Never used Substance and Sexual Activity Alcohol use: No Alcohol/week: 0.0 standard drinks of alcohol Drug use: No Sexual activity: Not on file Other Topics Concern Not on file Social History Narrative Not on file Social Determinants of Health Financial Resource Strain: Not on file Food Insecurity: Not on file Transportation Needs: Not on file Physical Activity: Not on file Stress: Not on file Social Connections: Not on file Intimate Partner Violence: Not on file Housing Stability: Not on file Health Maintenance Topic Date Due Diabetes: Retinopathy Screening Never done Diabetes: Dental Exam Never done RSV Immunization aged 60 or older (1 - 1-dose 60+ series) Never done Mammogram 04/23/2023 Colorectal Cancer Screening 10/11/2023 DTaP/Tdap/Td Vaccines (1 - Tdap) 06/16/2024 (Originally 1979) Zoster Vaccines (1 of 2) 06/16/2024 (Originally 2010) HIV Screening 06/16/2024 (Originally 1960) Hepatitis C Screening 06/16/2024 (Originally 1978) Depression Screening 11/18/2023 TSH Level 11/18/2023 Diabetes: Foot Exam 11/18/2023 Lipid Panel 11/18/2023 Medicare Advantage Annual Wellness Visit (AWV) 12/18/2023 Creatinine Level 03/18/2024 Potassium Level 03/18/2024 Diabetes: Hemoglobin A1C 03/18/2024 Echocardiogram 03/27/2024 Pneumococcal Vaccine: Pediatrics (0 to 5 Years) and At-Risk Patients (6 to 64 Years) (3 - PPSV23 orPCV20) 2025 MMR Vaccines Completed Influenza Vaccine Completed COVID-19 Vaccine Completed RSV Immunization under 20 Months Aged Out HIB Vaccines Aged Out Hepatitis B Vaccines Aged Out IPV Vaccines Aged Out Hepatitis A Vaccines Aged Out Meningococcal Vaccine Aged Out Rotavirus Vaccines Aged Out HPV Vaccines Aged Out Allergies Allergen Reactions Lisinopril Other Trimethoprim Sulfamethoxazole-Trimethoprim Hives and Rash Other reaction(s): Hives and/or rash Clarithromycin Hives Clindamycin Hives Nitrofurantoin Macrocrystal Sulfa Antibiotics Hives Other reaction(s): Hives and/or rash Clindamycin/Lincomycin Hives and Rash Other reaction(s): Rash Erythromycin Hives and Rash Nitrofurantoin Hives and Rash Review of Systems Constitutional: Negative for chills and fever. Respiratory: Negative for chest tightness and shortness of breath. Cardiovascular: Negative for chest pain. Gastrointestinal: Negative for abdominal distention, abdominal pain and blood in stool. Endocrine: Negative for polydipsia, polyphagia and polyuria. Skin: Negative for color change, pallor, rash and wound. Neurological: Negative for dizziness, syncope and weakness. BP 136/79 Pulse 73 Ht 5' 3.5 (1.613 m) Wt 252 lb 12.8 oz (115 kg) SpO2 96% BMI 44.08 kg/m Physical Exam Constitutional: General: She is not in acute distress. Appearance: She is obese. She is not ill-appearing or diaphoretic. HENT: Head: Normocephalic and atraumatic. Neck: Vascular: No carotid bruit. Cardiovascular: Rate and Rhythm: Normal rate and regular rhythm. Pulses: Normal pulses. Pulmonary: Effort: Pulmonary effort is normal. Breath sounds: Normal breath sounds. No wheezing, rhonchi or rales. Abdominal: General: Abdomen is protuberant. Bowel sounds are normal. Palpations: Abdomen is soft. There is no hepatomegaly, splenomegaly or mass. Tenderness: There is no abdominal tenderness. Musculoskeletal: Cervical back: Neck supple. Right lower leg: No edema. Left lower leg: No edema. Skin: Coloration: Skin is not pale. Findings: No erythema or rash. Neurological: Mental Status: She is alert and oriented to person, place, and time. Psychiatric: Mood and Affect: Mood normal. Behavior: Behavior normal. Thought Content: Thought content normal. Judgment: Judgment normal. Assessment and Plan: 1. Diabetes mellitus type 2 in obese (CMS/HCC) ([facility]) - metFORMIN XR (Glucophage-XR) 500 MG 24 hr tablet; Take 2 tablets (1,000 mg) by mouth in the morning and 2 tablets (1,000 mg) in the evening. Take with meals., Starting Thu06/17/2023, Normal - AMB POC HEMOGLOBIN A1C - Hemoglobin A1c has increased and is up to 8%. Will have her start once daily Rybelsus. She will drop off home blood sugars for review in 2 weeks. 2. Class 3 severe obesity due to excess calories with serious comorbidity and body mass index (BMI)of 40.0 to 44.9 in adult ([facility]) - Encouraged a healthy diet and regular exercise. 3. Congestive heart failure, unspecified HF chronicity, unspecified heart failure type ([facility]) - Stable. Follow up with specialist as directed. 4. Cardiomyopathy, unspecified type ([facility]) - Stable. Follow up with specialist as directed. 5. Atherosclerosis of coronary artery of [place] heart without angina pectoris, unspecified vessel or lesion type - Stable. Follow up with specialist as directed. 6. Primary hypertension - Stable with Losartan and Metoprolol. Continue medications as prescribed. 7. Hyperlipidemia, unspecified hyperlipidemia type - Stable with Atorvastatin. Will continue current treatment plan. 8. Seborrheic dermatitis of scalp - ketoconazole (NIZOral) 2 % shampoo; Shampoo daily, leave on for 5-10 minutes, then rinse., Normal - Stable with PRN Ketoconazole. Will continue current treatment plan. Discussed use, benefit, and side effects of prescribed medications. Barriers to medication compliance addressed. All patient questions answered. Pt voiced understanding. Follow up in about 3 months (around 09/17/2023) for diabetes management. Outpatient Encounter Medications as of 06/17/2023 Medication Sig Dispense Refill ascorbic acid (Vitamin C) 250 MG tablet Take 500 mg by mouth daily. ASPIRIN 81 PO Take 81 mg by mouth. atorvastatin (Lipitor) 40 MG tablet Take 1 tablet (40 mg) by mouth daily. 90 tablet 1 Blood Glucose Calibration ([employer] Verio) High solution calcium carbonate (Tums) 500 MG chewable tablet Chew 500 mg daily. clopidogrel (Plavix) 75 MG tablet Take 1 tablet by mouth once daily 90 tablet 1 coenzyme Q-10 10 MG capsule coenzyme Q10 Ubidecarenone Active 100 MG DAILY August 02, 2018 1:02pm 08-02-2018 [facility] ([id number]) furosemide (Lasix) 40 MG tablet ketoconazole (NIZOral) 2 % shampoo Shampoo daily, leave on for 5-10 minutes, then rinse. 120 mL 0 levothyroxine (Synthroid, Levoxyl) 50 MCG tablet Take 1 tablet (50 mcg) by mouth daily. 90 tablet 1 losartan (Cozaar) 50 MG tablet Take 1 tablet (50 mg) by mouth daily. 90 tablet 1 metFORMIN XR (Glucophage-XR) 500 MG 24 hr tablet Take 2 tablets (1,000 mg) by mouth in the morning and 2 tablets (1,000 mg) in the evening. Take with meals. 360 tablet 1 metoprolol tartrate (Lopressor) 100 MG tablet Take 1 tablet (100 mg) by mouth 2 times daily. 180 tablet 1 nitroglycerin (Nitrostat) 0.4 MG SL tablet every 5 minutes as needed for chest pain up to 3 doses total omeprazole (PriLOSEC) [address] capsule Take 1 capsule (20 mg) by mouth daily. Do not crush or chew.60 capsule 3 OneTouch Verio test strip USE STRIP TO CHECK GLUCOSE THREE TIMES DAILY 100 each 1 Pharmacist Choice Lancets misc zinc 100 MG tablet Take by mouth. [DISCONTINUED] fluticasone (Flonase) 50 MCG/ACT nasal spray USE 2 SPRAY(S) IN EACH NOSTRIL ONCE DAILY [DISCONTINUED] ketoconazole (NIZOral) 2 % shampoo Shampoo daily, leave on for 5- 10 minutes, then rinse. 120 mL 0 [DISCONTINUED] metFORMIN XR (Glucophage-XR) 500 MG 24 hr tablet Take 2 tablets (1,000 mg) by mouth in the morning and 2 tablets (1,000 mg) in the evening. Take with meals. 360 tablet 1 [DISCONTINUED] semaglutide (Ozempic) 2 MG/1.5ML solution pen-injector Inject 0.25 mg under the skin1 (one) time per week. (Patient not taking: Reported on 06/16/2023) 4 each 0 [DISCONTINUED] tiZANidine (Zanaflex) 4 MG tablet Take 1 tablet (4 mg) by mouth every 6 hours as needed for muscle spasms for up to 10 days. (Patient not taking: Reported on 06/16/2023) 30 tablet 0 No facility-administered encounter medications on file as of 06/17/2023. IRISH Ramirez CNP 06/17/2023 1:52 PM documented in this [facility]11-21-2023 Telephone encounter Note* Telephone Encounter - Franchesca Delgado - 06/09/2023 3:18 PM EST Ordering provider: Dr. Latif Date of last office visit: 03/18/23 Date of next office visit: 06/17/23 Updated/Validated preferred pharmacy: Yes Patient instructed to contact the pharmacy prior to picking up the medication: Yes Patient is expressing urgency as they are getting very low on both medications. Please advise. (1) Medication name: levothyroxine (Synthroid, Levoxyl) 50 MCG tablet Medication dosage: 50 mcg (Micrograms) Monthly quantity needed: 30 How many day supply requestin days Medication route: oral (PO) Medication administration time(s): daily If taking medication PRN, reason for taking medication: N/A If this is a controlled substance do you receive this or any other controlled medication from any other doctor or facility: N/A Date of last refill (see medication tab): 11/18/22 (2) Medication name: losartan (Cozaar) 50 MG tablet Medication dosage: 50 mg (Miligrams Monthly quantity needed: 30 How many day supply requestin days Medication route: oral (PO) Medication administration time(s): daily If taking medication PRN, reason for taking medication: N/A If this is a controlled substance do you receive this or any other controlled medication from any other doctor or facility: N/A Date of last refill (see medication tab): 12/16/22 [id number] Miscellaneous Notes* Telephone Encounter - Franchesca Delgado - 06/09/2023 3:18 PM EST Ordering provider: Dr. Latif Date of last office visit: 03/18/23 Date of next office visit: 06/17/23 Updated/Validated preferred pharmacy: Yes Patient instructed to contact the pharmacy prior to picking up the medication: Yes Patient is expressing urgency as they are getting very low on both medications. Please advise. (1) Medication name: levothyroxine (Synthroid, Levoxyl) 50 MCG tablet Medication dosage: 50 mcg (Micrograms) Monthly quantity needed: 30 How many day supply requestin days Medication route: oral (PO) Medication administration time(s): daily If taking medication PRN, reason for taking medication: N/A If this is a controlled substance do you receive this or any other controlled medication from any other doctor or facility: N/A Date of last refill (see medication tab): 11/18/22 (2) Medication name: losartan (Cozaar) 50 MG tablet Medication dosage: 50 mg (Miligrams Monthly quantity needed: 30 How many day supply requestin days Medication route: oral (PO) Medication administration time(s): daily If taking medication PRN, reason for taking medication: N/A If this is a controlled substance do you receive this or any other controlled medication from any other doctor or facility: N/A Date of last refill (see medication tab): 12/16/22 [id number] Telephone encounter Note* Telephone Encounter - Nubia Dodson MA - 06/02/2023 9:26 AM EST Notified. [id number] Miscellaneous Notes* Telephone Encounter - Nubia Dodson MA - 06/02/2023 9:26 AM EST Notified. * Telephone Encounter - IRISH Ramirez CNP - 06/01/2023 5:12 PM EST Since she is not on insulin there is no indication to be testing this much. Insurance will cover that. * Telephone Encounter - Karin Kee - 06/01/2023 2:46 PM EST Name of caller: Karin Contact phone number: [phone] Relationship to Patient: patient Provider: Debbie Practice: [facility] Chief Complaint/Reason for Call: Patient states she has been testing more often since her stent. She needs a refill to reflect testing up to 6x a day. States her sugar levels had been all over the place so she is testing a lot more. Please advise. Best time of day caller can be reached: any Patient advised that office/PCP has 24-48 business hours to return their call: Yes * Telephone Encounter - IRISH Ramirez CNP - 06/01/2023 12:23 PM EST Refill sent per request. * Telephone Encounter - Concha Sanchez - 06/01/2023 8:42 AM EST Name of caller: Karin Contact phone number: [phone] Relationship to Patient: patient Provider: Debbie Practice: [facility] Chief Complaint/Reason for Call: Patient called and said she is out of test strips. She said she was testing 5-6 times daily to make sure her sugars were staying down. She wants to know if you can send a new script to the pharmacy? Please advise Best time of day caller can be reached: any Patient advised that office/PCP has 24-48 business hours to return their call: No documented in this [facility]11-13-2023 Telephone encounter Note* Telephone Encounter - IRISH Ramirez CNP - 06/01/2023 5:12 PM EST Since she is not on insulin there is no indication to be testing this much. Insurance will cover that. [id number] Miscellaneous Notes* Telephone Encounter - IRISH Ramirez CNP - 06/01/2023 5:12 PM EST Since she is not on insulin there is no indication to be testing this much. Insurance will cover that. * Telephone Encounter - Karin Kee - 06/01/2023 2:46 PM EST Name of caller: Karin Contact phone number: [phone] Relationship to Patient: patient Provider: Debbie Practice: [facility] Chief Complaint/Reason for Call: Patient states she has been testing more often since her stent. She needs a refill to reflect testing up to 6x a day. States her sugar levels had been all over the place so she is testing a lot more. Please advise. Best time of day caller can be reached: any Patient advised that office/PCP has 24-48 business hours to return their call: Yes * Telephone Encounter - IRISH Ramirez CNP - 06/01/2023 12:23 PM EST Refill sent per request. * Telephone Encounter - Concha Sanchez - 06/01/2023 8:42 AM EST Name of caller: Karin Contact phone number: [phone] Relationship to Patient: patient Provider: Debbie Practice: [facility] Chief Complaint/Reason for Call: Patient called and said she is out of test strips. She said she was testing 5-6 times daily to make sure her sugars were staying down. She wants to know if you can send a new script to the pharmacy? Please advise Best time of day caller can be reached: any Patient advised that office/PCP has 24-48 business hours to return their call: No documented in this [facility]11-13-2023 Telephone encounter Note* Telephone Encounter - Karin Kee - 06/01/2023 2:46 PM EST Name of caller: Karin Contact phone number: [phone] Relationship to Patient: patient Provider: [place] Practice: [facility] Chief Complaint/Reason for Call: Patient states she has been testing more often since her stent. She needs a refill to reflect testing up to 6x a day. States her sugar levels had been all over the place so she is testing a lot more. Please advise. Best time of day caller can be reached: any Patient advised that office/PCP has 24-48 business hours to return their call: Yes [facility] [id number] Telephone encounter Note* Telephone Encounter - IRISH Ramirez CNP - 06/01/2023 12:23 PM EST Refill sent per request. [facility] [id number] Telephone encounter Note* Telephone Encounter - Concha Sanchez - 06/01/2023 8:42 AM EST Name of caller: Karin Contact phone number: [phone] Relationship to Patient: patient Provider: Debbie Practice: [facility] Chief Complaint/Reason for Call: Patient called and said she is out of test strips. She said she was testing 5-6 times daily to make sure her sugars were staying down. She wants to know if you can send a new script to the pharmacy? Please advise Best time of day caller can be reached: any Patient advised that office/PCP has 24-48 business hours to return their call: No [facility] [id number] Telephone encounter Note* Telephone Encounter - Charlotte Valera - 05/11/2023 9:11 AM EDT Ordering provider: Rafaela Castanon Date of last office visit: 03/18/23 Date of next office visit: 06/17/23 Updated/Validated preferred pharmacy: Yes Patient instructed to contact the pharmacy prior to picking up the medication: Yes (1) Medication name: metoprolol tartrate (Lopressor) 100 MG tablet Medication dosage: 100 mg (Miligrams Monthly quantity needed: 60 How many day supply requestin days Medication route: oral (PO) Medication administration time(s): 2 times a day (BID) If taking medication PRN, reason for taking medication: N/A If this is a controlled substance do you receive this or any other controlled medication from any other doctor or facility: N/A Date of last refill (see medication tab): 11/17/22 (2) Medication name: atorvastatin (Lipitor) 40 MG tablet Medication dosage: 40 mg (Miligrams Monthly quantity needed: 30 How many day supply requestin days Medication route: oral (PO) Medication administration time(s): daily If taking medication PRN, reason for taking medication: N/A If this is a controlled substance do you receive this or any other controlled medication from any other doctor or facility: N/A Date of last refill (see medication tab): 11/17/22 (3) Medication name: OneTouch Verio test strip Medication dosage: as directed Monthly quantity needed: 100 each How many day supply requestin days Medication route: as directed Medication administration time(s): USE STRIP TO CHECK GLUCOSE THREE TIMES DAILY If taking medication PRN, reason for taking medication: N/A If this is a controlled substance do you receive this or any other controlled medication from any other doctor or facility: N/A Date of last refill (see medication tab): [id number] Miscellaneous Notes* Telephone Encounter - Charlotte Valera - 05/11/2023 9:11 AM EDT Ordering provider: Rafaela Castanon Date of last office visit: 03/18/23 Date of next office visit: 06/17/23 Updated/Validated preferred pharmacy: Yes Patient instructed to contact the pharmacy prior to picking up the medication: Yes (1) Medication name: metoprolol tartrate (Lopressor) 100 MG tablet Medication dosage: 100 mg (Miligrams Monthly quantity needed: 60 How many day supply requestin days Medication route: oral (PO) Medication administration time(s): 2 times a day (BID) If taking medication PRN, reason for taking medication: N/A If this is a controlled substance do you receive this or any other controlled medication from any other doctor or facility: N/A Date of last refill (see medication tab): 11/17/22 (2) Medication name: atorvastatin (Lipitor) 40 MG tablet Medication dosage: 40 mg (Miligrams Monthly quantity needed: 30 How many day supply requestin days Medication route: oral (PO) Medication administration time(s): daily If taking medication PRN, reason for taking medication: N/A If this is a controlled substance do you receive this or any other controlled medication from any other doctor or facility: N/A Date of last refill (see medication tab): 11/17/22 (3) Medication name: Anabela Benjaminio test strip Medication dosage: as directed Monthly quantity needed: 100 each How many day supply requestin days Medication route: as directed Medication administration time(s): USE STRIP TO CHECK GLUCOSE THREE TIMES DAILY If taking medication PRN, reason for taking medication: N/A If this is a controlled substance do you receive this or any other controlled medication from any other doctor or facility: N/A Date of last refill (see medication tab): 02/14/23 [facility] [id number] Telephone encounter Note* Telephone Encounter - IRISH Mann CNP - 04/20/2023 2:36 PM EDT Reviewed chart. Refill appropriate. RX sent. [id number] Miscellaneous Notes* Telephone Encounter - IRISH Mann CNP - 04/20/2023 2:36 PM EDT Reviewed chart. Refill appropriate. RX sent. * Telephone Encounter - Nidhi Huerta - 04/20/2023 10:26 AM EDT Medication name: omeprazole (PriLOSEC) [address] capsule The patient is requesting a 60 day supply Medication dosage: 20 mg (Miligrams Monthly quantity needed: 60 How many day supply requestin days Medication route: oral (PO) Medication administration time(s): daily If taking medication PRN, reason for taking medication: N/A If this is a controlled substance do you receive this or any other controlled medication from any other doctor or facility: No Ordering provider: Dr. Latif Date of last office visit: 03/18/2023 Date of next office visit: 06/17/2023 Date of last refill: (see medication tab): 03/18/2023 Updated/Validated preferred pharmacy: Yes Patient instructed to contact the pharmacy prior to picking up the medication: No documented in this [facility]10-02-2023 Telephone encounter Note* Telephone Encounter - Nidhi Huerta - 04/20/2023 10:26 AM EDT Medication name: omeprazole (PriLOSEC) [address] capsule The patient is requesting a 60 day supply Medication dosage: 20 mg (Miligrams Monthly quantity needed: 60 How many day supply requestin days Medication route: oral (PO) Medication administration time(s): daily If taking medication PRN, reason for taking medication: N/A If this is a controlled substance do you receive this or any other controlled medication from any other doctor or facility: No Ordering provider: Dr. Latif Date of last office visit: 03/18/2023 Date of next office visit: 06/17/2023 Date of last refill: (see medication tab): 03/18/2023 Updated/Validated preferred pharmacy: Yes Patient instructed to contact the pharmacy prior to picking up the medication: No [id number] History of Present illness Narrative* Rafaela Castanon APRN - [place] - 03/18/2023 1:00 PM EDT Images from the original note were not included. Patient Yue Ibrahim 62 y.o. female, presents today with Chief Complaint Patient presents with Diabetes Medication Check Health Maintenance Hep C--declines, HIV--declines, Colon--due in september [address] referral, Dm Eye--had recently at [facility] in [place], Mammo--needs new order, Dental--has not been is scheduled 03/25, Tdap--would need at pharmacy, Shingles--would need at pharmacy . HPI- Yue Ibrahim presents today for follow up on her diabetes and other chronic health conditions. Previous hemoglobin A1c was 7.6% on 11/17/22. Was started on Trulicity injections at this time. Has not been taking her Trulicity for the past week because she states to co-pay went up and she canno longer afford this. Diabetes Mellitus Type II: Known diabetic complications: cerebrovascular disease- is in the process of establishing with a newcardiologist- Dr. Phillips (Dr. Miller is moving to the [place], [place] area). Scheduled to see Dr. Phillips in March of this year. Cardiovascular risk factors: diabetes mellitus, dyslipidemia, hypertension, obesity (BMI >= 30 kg/m2), and sedentary lifestyle Current diabetic medications include Metformin, Trulicity . Eye exam current (within one year): Yes - [facility] (around December) Dental exam current (within one year): No- scheduled 03/25/23 for exam Weight trend: Has gained 8 pounds over the past three months. Prior visit with anesthesiology technologist: No Current diet: in general, an unhealthy diet- states she has been stressed with her family and this has contributed to her stress eating Current exercise: none- Per her last visit she was planning to sign up at the local recreation center- states she signed up but has never gone. Current monitoring regimen: home blood tests - several times weekly- did not bring blood sugars in for review Home blood sugar records: fasting range: 114-137 and postprandial range: 150-160 Any episodes of hypoglycemia? No Is She on CLAUDIA inhibitor or angiotensin II receptor yeyo? Yes losartan (Cozaar)- blood pressure is stable today at 130/86 Currently on statin therapy? Yes - Atorvastatin Last urine microalbumin was less than 0.2 mg/L on 11/17/22. Last foot exam was 11/17/22. Health Maintenance: Colon cancer screening: Cologuard 09/29/20. Would like a Tdap vaccination. Declines to be vaccinated for Hep B. Would to be vaccinated for shingles. Declines screening for HIV and Hep C. Mammogram: 04/23/22- would like a new order for this. Current on pneumonia vaccinations: PPSV23 on 08/25/18 and PCV13 on 11/15/21. Vaccinated for COVID-19 x5 with most recent dose on 05/05/22. Has had a hysterectomy and no longer gets pap smears. Echocardiogram: will defer to internet and e business project manager. Past Medical History: Diagnosis Date Abnormal weight gain Acute URI 12/19/2021 Cardiomyopathy (HCC) Cardiomyopathy (HCC) CHF (congestive heart failure) (CMS/HCC) (HCC) CHF (congestive heart failure) (CMS/HCC) (HCC) Diabetes (HCC) DJD (degenerative joint disease) Edema GERD (gastroesophageal reflux disease) Hypothyroidism Insomnia Knee pain [place] (myocardial infarction) (CMS/HCC) (HCC) Nasal congestion 10/16/2022 Obesity Trapezius strain, unspecified laterality, initial encounter 07/18/2022 Type II or unspecified type diabetes mellitus without mention of complication, not stated as uncontrolled ([facility]) Unspecified sleep apnea Past Surgical History: Procedure Laterality Date BUNIONECTOMY CARDIAC CATHETERIZATION 08/16/2019 CARDIAC CATHETERIZATION Stent Placement CARPAL TUNNEL RELEASE HEMORRHOID SURGERY DOPPLER-GUIDED LIGATION JOINT REPLACEMENT KNEE RIGHT TONSILLECTOMY AND ADENOIDECTOMY (HISTORICAL) TOTAL VAGINAL HYSTERECTOMY Family History Problem Relation Name Age of Onset Heart disease Brother Cancer Father Cancer Mother Diabetes Mother Heart disease Sister High Blood Pressure Father Asthma Brother Social History Socioeconomic History Marital status: Spouse name: Not on file Number of children: Not on file Years of education: Not on file Highest education level: Not on file Occupational History Not on file Tobacco Use Smoking status: Never Smokeless tobacco: Never Substance and Sexual Activity Alcohol use: No Alcohol/week: 0.0 standard drinks of alcohol Drug use: No Sexual activity: Not on file Other Topics Concern Not on file Social History Narrative Not on file Social Determinants of Health Financial Resource Strain: Not on file Food Insecurity: Not on file Transportation Needs: Not on file Physical Activity: Not on file Stress: Not on file Social Connections: Not on file Intimate Partner Violence: Not on file Housing Stability: Not on file Health Maintenance Topic Date Due Echocardiogram Never done Diabetes: Retinopathy Screening Never done Influenza Vaccine (1) 03/20/2023 Mammogram 04/23/2023 Colorectal Cancer Screening 10/11/2023 DTaP/Tdap/Td Vaccines (1 - Tdap) 06/09/2023 (Originally 1979) Zoster Vaccines (1 of 2) 06/09/2023 (Originally 2010) HIV Screening 06/09/2023 (Originally 1960) Hepatitis C Screening 06/09/2023 (Originally 1978) Diabetes: Dental Exam 06/09/2023 (Originally 1970) Depression Screening 11/18/2023 Creatinine Level 11/18/2023 Potassium Level 11/18/2023 TSH Level 11/18/2023 Diabetes: Foot Exam 11/18/2023 Lipid Panel 11/18/2023 Diabetes: Hemoglobin A1C 11/18/2023 Pneumococcal Vaccine: Pediatrics (0 to 5 Years) and At-Risk Patients (6 to 64 Years) (3 - PPSV23 ifavailable, else PCV20) 2025 MMR Vaccines Completed COVID-19 Vaccine Completed HIB Vaccines Aged Out Hepatitis B Vaccines Aged Out IPV Vaccines Aged Out Hepatitis A Vaccines Aged Out Meningococcal Vaccine Aged Out Rotavirus Vaccines Aged Out HPV Vaccines Aged Out Allergies Allergen Reactions Lisinopril Other Trimethoprim Sulfamethoxazole-Trimethoprim Hives and Rash Other reaction(s): Hives and/or rash Clarithromycin Hives Clindamycin Hives Nitrofurantoin Macrocrystal Sulfa Antibiotics Hives Other reaction(s): Hives and/or rash Clindamycin/Lincomycin Hives and Rash Other reaction(s): Rash Erythromycin Hives and Rash Nitrofurantoin Hives and Rash Review of Systems Constitutional: Negative for chills and fever. Respiratory: Positive for shortness of breath (on exertion). Negative for chest tightness. Cardiovascular: Negative for chest pain, palpitations and leg swelling. Gastrointestinal: Negative for abdominal distention, abdominal pain and blood in stool. Endocrine: Negative for polydipsia, polyphagia and polyuria. Skin: Negative for color change, pallor, rash and wound. Neurological: Negative for dizziness, syncope, weakness, light-headedness and headaches. BP 130/86 Pulse 64 Ht 5' 3.5 (1.613 m) Wt 252 lb (114 kg) SpO2 99% BMI 43.94 kg/m Physical Exam Constitutional: General: She is not in acute distress. Appearance: She is obese. She is not ill-appearing or diaphoretic. Neck: Vascular: No carotid bruit. Cardiovascular: Rate and Rhythm: Normal rate and regular rhythm. Pulses: Normal pulses. Heart sounds: Normal heart sounds. No murmur heard. No friction rub. Pulmonary: Effort: Pulmonary effort is normal. Breath sounds: Normal breath sounds. No wheezing, rhonchi or rales. Abdominal: General: Abdomen is protuberant. Bowel sounds are normal. Palpations: Abdomen is soft. There is no hepatomegaly, splenomegaly or mass. Tenderness: There is no abdominal tenderness. Musculoskeletal: Cervical back: Neck supple. Right lower leg: No edema. Left lower leg: No edema. Skin: General: Skin is warm and dry. Coloration: Skin is not pale. Findings: No erythema or rash. Neurological: Mental Status: She is alert and oriented to person, place, and time. Psychiatric: Mood and Affect: Mood normal. Behavior: Behavior normal. Thought Content: Thought content normal. Judgment: Judgment normal. Assessment and Plan: 1. Diabetes mellitus type 2 in obese (CMS/HCC) ([facility]) - Basic metabolic panel - Hemoglobin A1c - Per report of home blood sugar readings it appears she was better controlled with Trulicity. Havea message out to our nurse coordinator for potential assistance to get this medication at an affordable cost. - Will notify of blood work results. 2. Class 3 severe obesity due to excess calories with serious comorbidity and body mass index (BMI)of 40.0 to 44.9 in adult ([facility]) - Basic metabolic panel - Encouraged a healthy diet and regular exercise. 3. Congestive heart failure, unspecified HF chronicity, unspecified heart failure type ([facility]) - Basic metabolic panel - Stable. Follow up with specialist as directed. 4. Cardiomyopathy, unspecified type ([facility]) - Basic metabolic panel - Stable. Follow up with specialist as directed. 5. Primary hypertension - Basic metabolic panel - Stable with Losartan. Will continue current treatment plan. 6. Hyperlipidemia, unspecified hyperlipidemia type - Basic metabolic panel - Stable with Atorvastatin. Will continue current treatment plan. 7. Need for Tdap vaccination - Tdap (BoostRIX) 5-2.5-18.5 LF-MCG/0.5 suspension prefilled syringe injection; Inject 0.5 mL into the shoulder, thigh, or buttocks Once for 1 dose., Starting Thu03/18/2023, Normal - Rx sent to local pharmacy. 8. Need for shingles vaccine - zoster vaccine-recombinant adjuvanted (Shingrix) 50 MCG/0.5ML vaccine; Inject 0.5 mL (50 mcg) into the shoulder, thigh, or buttocks Once for 1 dose., Starting 03/18/2023, Normal - Rx sent to local pharmacy. 9. Screening mammogram for breast cancer - Bilateral screening mammogram 10. Colon cancer screening - External referral to Gastroenterology Discussed use, benefit, and side effects of prescribed medications. Barriers to medication compliance addressed. All patient questions answered. Pt voiced understanding. Follow up in about 3 months (around 06/18/2023) for diabetes management. Outpatient Encounter Medications as of 03/18/2023 Medication Sig Dispense Refill ascorbic acid (Vitamin C) 250 MG tablet Take 500 mg by mouth daily. ASPIRIN 81 PO Take 81 mg by mouth. atorvastatin (Lipitor) 40 MG tablet Take 1 tablet (40 mg) by mouth daily. 90 tablet 1 Blood Glucose Calibration (OneTouch Verio) High solution calcium carbonate (Tums) 500 MG chewable tablet Chew 500 mg daily. clopidogrel (Plavix) 75 MG tablet Take 1 tablet by mouth once daily 90 tablet 1 coenzyme Q-10 10 MG capsule coenzyme Q10 Ubidecarenone Active 100 MG DAILY August 02, 2018 1:02pm 08-02-2018 [place] [facility] ([id number]) famotidine (Pepcid) 40 MG tablet Take 1 tablet (40 mg) by mouth every evening. 90 tablet 1 fluticasone (Flonase) 50 MCG/ACT nasal spray USE 2 SPRAY(S) IN EACH NOSTRIL ONCE DAILY ketoconazole (NIZOral) 2 % shampoo Shampoo daily, leave on for 5-10 minutes, then rinse. 120 mL 0 levothyroxine (Synthroid, Levoxyl) 50 MCG tablet Take 1 tablet (50 mcg) by mouth daily. 90 tablet 1 losartan (Cozaar) 50 MG tablet Take 1 tablet (50 mg) by mouth daily. 90 tablet 1 metFORMIN XR (Glucophage-XR) 500 MG 24 hr tablet Take 2 tablets (1,000 mg) by mouth in the morning and 2 tablets (1,000 mg) in the evening. Take with meals. 360 tablet 1 metoprolol tartrate (Lopressor) 100 MG tablet Take 1 tablet (100 mg) by mouth 2 times daily. 180 tablet 1 nitroglycerin (Nitrostat) 0.4 MG SL tablet every 5 minutes as needed for chest pain up to 3 doses total OneTouch Verio test strip USE STRIP TO CHECK GLUCOSE THREE TIMES DAILY 100 each 1 Pharmacist Choice Lancets misc tiZANidine (Zanaflex) 4 MG tablet Take 1 tablet (4 mg) by mouth every 6 hours as needed for muscle spasms for up to 10 days. 30 tablet 0 zinc 100 MG tablet Take by mouth. dulaglutide (Trulicity) 0.75 MG/0.5ML solution pen-injector Inject 0.75 mg under the skin 1 (one) time per week. (Patient not taking: Reported on 03/18/2023) 4 each 2 Tdap (BoostRIX) 5-2.5-18.5 LF-MCG/0.5 suspension prefilled syringe injection Inject 0.5 mL into theshoulder, thigh, or buttocks Once for 1 dose. 0.5 mL 0 zoster vaccine-recombinant adjuvanted (Shingrix) 50 MCG/0.5ML vaccine Inject 0.5 mL (50 mcg) into the shoulder, thigh, or buttocks Once for 1 dose. 0.5 mL 0 No facility-administered encounter medications on file as of 03/18/2023. IRISH Ramirez CNP 03/18/2023 1:38 PM * Pam Ramirez MA - 03/18/2023 1:00 PM EDT Justina lainez has gone up, she cant afford it. I do not believe they are accepting new applications for patient assistance. documented in this encounterSSamaritan North Health [id number] Telephone encounter Note* Telephone Encounter - IRISH Ramirez CNP - 01/05/2023 8:27 AM EDT Rx sent. Follow up as scheduled. [id number] Miscellaneous Notes* Telephone Encounter - IRISH Ramirez CNP - 01/05/2023 8:27 AM EDT Rx sent. Follow up as scheduled. * Telephone Encounter - Farzana Pang MA - 01/05/2023 8:25 AM EDT Prescription Request: Last medication check: 06/09/22 Last physical exam: 11/17/22 Next scheduled appointment: 02/18/23 Last date of refill on this medication 06/23/22 90 day 1 refill documented in this [facility]06-19-2023 Telephone encounter Note* Telephone Encounter - Farzana Pang MA - 01/05/2023 8:25 AM EDT Prescription Request: Last medication check: 06/09/22 Last physical exam: 11/17/22 Next scheduled appointment: 02/18/23 Last date of refill on this medication 06/23/22 90 day 1 refill [id number] Telephone encounter Note* Telephone Encounter - Lorraine Ordaz RN - 12/22/2022 3:20 PM EDT S: Patient spoke with [facility] nurse regarding extremely sick to stomach since starting trulicity. B: Onset of symptoms/concern x3 weeks. A: Pt reports was started on Trulicity about a month ago. She reports about a week into taking the shot she noticed a sour stomach and bloating. Pt reports has not had an appetite and her stomach symptoms have not been relieved by pepto bismol, or tums. Pt states has not had any issues with low blood sugars or vomiting. Instructed pt to take BS while on phone and is currently 114. Pt states is not able to drink fluids as she normally would d/t the heartburn. Pt requesting only to see Rafaela Castanon. R: Home care advise given to try to increase oral fluid intake as to not get dehydrated. Decrease amt of Pepto Bismol. Decrease amt of diet pepsi. If she starts vomiting and unable to keep fluids down prior to her appointment she needs to go to ED. Appointment made for Rafaela Castanon on Thursday at 1020am. Insurance verified and pt instructed to arrive 15 min early and bring insurance cards/photo ID and any current meds. Patient understands care advice. No further needs at this time. Patient instructed to call back with new or worsening symptoms. Reason for Disposition Nausea lasts > 1 week Protocols used: [id number] [facility] [id number] Miscellaneous Notes* Telephone Encounter - Lorraine Ordaz RN - 12/22/2022 3:20 PM EDT S: Patient spoke with [facility] nurse regarding extremely sick to stomach since starting trulicity. B: Onset of symptoms/concern x3 weeks. A: Pt reports was started on Trulicity about a month ago. She reports about a week into taking the shot she noticed a sour stomach and bloating. Pt reports has not had an appetite and her stomach symptoms have not been relieved by pepto bismol, or tums. Pt states has not had any issues with low blood sugars or vomiting. Instructed pt to take BS while on phone and is currently 114. Pt states is not able to drink fluids as she normally would d/t the heartburn. Pt requesting only to see Rafaela Castanon. R: Home care advise given to try to increase oral fluid intake as to not get dehydrated. Decrease amt of Pepto Bismol. Decrease amt of diet pepsi. If she starts vomiting and unable to keep fluids down prior to her appointment she needs to go to ED. Appointment made for Rafaela Castanon on Thursday at 1020am. Insurance verified and pt instructed to arrive 15 min early and bring insurance cards/photo ID and any current meds. Patient understands care advice. No further needs at this time. Patient instructed to call back with new or worsening symptoms. Reason for Disposition Nausea lasts > 1 week Protocols used: [id number] documented in this encounterSSamaritan North Health [id number] History of Present illness Narrative* Joaquina Chairez RN - 12/16/2022 1:59 PM EDT Medication is covered by insurance, because she is Medicare advantage plan, manufacture coupon cards will not pickle solution maker co-pay documented in this encounterSSamaritan North Health [id number] Telephone encounter Note* Telephone Encounter - Alie Santo - 12/16/2022 10:24 AM EDT Ordering provider: Dr. Latif Date of last office visit: 11/17/22 Date of next office visit: 02/18/23 Updated/Validated preferred pharmacy: Yes Patient instructed to contact the pharmacy prior to picking up the medication: Yes (1) Medication name: Lostaran Medication dosage: 50 mg (Miligrams Monthly quantity needed: 30 How many day supply requestin days Medication route: oral (PO) Medication administration time(s): daily If taking medication PRN, reason for taking medication: N/A If this is a controlled substance do you receive this or any other controlled medication from any other doctor or facility: N/A Date of last refill (see medication tab): (2) Medication name: Metformin XR Medication dosage: 500 mg (Miligrams Monthly quantity needed: 60 How many day supply requestin days Medication route: oral (PO) Medication administration time(s): 2 times a day (BID) If taking medication PRN, reason for taking medication: N/A If this is a controlled substance do you receive this or any other controlled medication from any other doctor or facility: N/A Date of last refill (see medication tab): [id number] Miscellaneous Notes* Telephone Encounter - Alie Santo - 12/16/2022 10:24 AM EDT Ordering provider: Dr. Latif Date of last office visit: 11/17/22 Date of next office visit: 02/18/23 Updated/Validated preferred pharmacy: Yes Patient instructed to contact the pharmacy prior to picking up the medication: Yes (1) Medication name: Lostaran Medication dosage: 50 mg (Miligrams Monthly quantity needed: 30 How many day supply requestin days Medication route: oral (PO) Medication administration time(s): daily If taking medication PRN, reason for taking medication: N/A If this is a controlled substance do you receive this or any other controlled medication from any other doctor or facility: N/A Date of last refill (see medication tab): (2) Medication name: Metformin XR Medication dosage: 500 mg (Miligrams Monthly quantity needed: 60 How many day supply requestin days Medication route: oral (PO) Medication administration time(s): 2 times a day (BID) If taking medication PRN, reason for taking medication: N/A If this is a controlled substance do you receive this or any other controlled medication from any other doctor or facility: N/A Date of last refill (see medication tab): documented in this encounterSSamaritan North Health [id number] Telephone encounter Note* Telephone Encounter - Nubia Dodson MA - 11/19/2022 8:37 AM EDT Notified. [facility] [id number] Miscellaneous Notes* Telephone Encounter - Nubia Dodson MA - 11/19/2022 8:37 AM EDT Notified. * Telephone Encounter - IRISH Ramirez CNP - 11/19/2022 7:02 AM EDT Thank you Nubia. Rx for Trulicity has been sent. Drop off home blood sugars for review in 2 weeks. * Telephone Encounter - Nubia Dodson MA - 11/18/2022 9:04 AM EDT Notified, agreeable. Send trulicity to pharmacy on file, she states she called her insurance and they will cover trulicity but she has a $42 copay and asked if she can get assistance with this. Notified her I will send this to Joaquina to assist. * Telephone Encounter - Nubia Dodson MA - 11/18/2022 9:04 AM EDT ----- Message from IRISH Ramirez CNP sent at 11/18/2022 7:40 AM EDT ----- White blood cell count slightly elevated, but stable when compared to previous checks. Blood count is otherwise normal. Blood sugar was 136. Kidney function, electrolytes, and liver enzymes are normal. Triglyceride levels are elevated, but improved from previous check. Good cholesterol levels are low. Regular exercise can help to bring these up. Better blood sugar control can help to bring down triglyceride levels. Continue current dose of Atorvastatin. Hemoglobin A1c is high at 7.6%. recommend she start Trulicity injections to help bring her blood sugars down more. TSH is within normal range. Continue current dose of Levothyroxine. Refill sent. documented in this encounterSSamaritan North Health [id number] Telephone encounter Note* Telephone Encounter - IRISH Ramirez CNP - 11/19/2022 7:02 AM EDT Thank you Nubia. Rx for Trulicity has been sent. Drop off home blood sugars for review in 2 weeks. [facility] [id number] Telephone encounter Note* Telephone Encounter - Nubia Dodson MA - 11/18/2022 9:04 AM EDT Notified, agreeable. Send trulicity to pharmacy on file, she states she called her insurance and they will cover trulicity but she has a $42 copay and asked if she can get assistance with this. Notified her I will send this to Joaquina to assist. [facility] [id number] Telephone encounter Note* Telephone Encounter - Nubia Dodson MA - 11/18/2022 9:04 AM EDT ----- Message from IRISH Ramirez CNP sent at 11/18/2022 7:40 AM EDT ----- White blood cell count slightly elevated, but stable when compared to previous checks. Blood count is otherwise normal. Blood sugar was 136. Kidney function, electrolytes, and liver enzymes are normal. Triglyceride levels are elevated, but improved from previous check. Good cholesterol levels are low. Regular exercise can help to bring these up. Better blood sugar control can help to bring down triglyceride levels. Continue current dose of Atorvastatin. Hemoglobin A1c is high at 7.6%. recommend she start Trulicity injections to help bring her blood sugars down more. TSH is within normal range. Continue current dose of Levothyroxine. Refill sent. [facility] [id number] History of Present illness Narrative* IRISH Ramirez CNP - 11/17/2022 8:20 AM EDT Images from the original note were not included. [address] [address] Visit type: Established Patient Reason for Visit: Medicare Annual Wellness Visit Initial (Wants to discuss trulicity) and Health Maintenance (Hep C--declines, HIV--declines, Colon--discuss may be interested in Dr Montelongo, [facility] eye--will be scheduling appointment, Tdap--declines, Hep B--declines, Shingles-- insurance will not cover she will have to pay 85 out of pocket) Assessment and Plan 1. Medicare annual wellness visit, subsequent - Encouraged a healthy diet low in cholesterol and saturated fats. - Encouraged regular exercise. 2. Diabetes mellitus type 2 in obese (CMS/HCC) ([facility]) - CBC - Comprehensive metabolic panel - Hemoglobin A1c - Microalbumin / creatinine urine ratio - Hm Diabetes Foot Exam - OneTouch Verio test strip; USE STRIP TO CHECK GLUCOSE THREE TIMES DAILY, Normal - Not well controlled. Will check blood work today- discussed start on GLP-1 injections pending [id number]. 3. Encounter for diabetic foot exam ([facility]) - Diabetes Foot Exam 4. Congestive heart failure, unspecified HF chronicity, unspecified heart failure type ([facility]) - [facility] - Comprehensive metabolic panel - metoprolol tartrate (Lopressor) 100 MG tablet; Take 1 tablet (100 mg) by mouth 2 times daily., Starting 11/17/2022, Normal - Stable. Follow up with specialist as directed. 5. Cardiomyopathy, unspecified type ([facility]) - [facility] - Comprehensive metabolic panel - metoprolol tartrate (Lopressor) 100 MG tablet; Take 1 tablet (100 mg) by mouth 2 times daily., Starting Thu11/17/2022, Normal - Stable. Follow up with specialist as directed. 6. Class 3 severe obesity due to excess calories with serious comorbidity and body mass index (BMI)of 40.0 to 44.9 in adult ([facility]) - [facility] - Comprehensive metabolic panel - Encouraged healthy diet and regular exercise. 7. Hyperlipidemia, unspecified hyperlipidemia type - [facility] - Comprehensive metabolic panel - Lipid panel - atorvastatin (Lipitor) 40 MG tablet; Take 1 tablet (40 mg) by mouth daily., Starting 11/17/2022, Normal - Stable with Atorvastatin. Will continue current treatment plan. 8. Sleep apnea, unspecified type - CBC - Comprehensive metabolic panel - Stable. 9. Insomnia, unspecified type - CBC - Comprehensive metabolic panel - Stable. 10. Gastroesophageal reflux disease, unspecified whether esophagitis present - CBC - Comprehensive metabolic panel - Stable with Pepcid. Will continue current treatment plan. 11. Osteoarthritis, unspecified osteoarthritis type, unspecified site - CBC - Comprehensive metabolic panel - Stable. 12. Hypothyroidism, unspecified type - CBC - Comprehensive metabolic panel - TSH - Stable with Levothyroxine. Will continue current treatment plan. 13. Tinnitus of both ears - External referral to Audiology Follow up in about 3 months (around 02/17/2023) for diabetes management. Sun HPI- Yue presents today for her annual Medicare physical and blood work. Diabetes Mellitus Type II: Current symptoms/problems include none. Most recent hemoglobin A1c was 10.1% on 03/10/22. Known diabetic complications: cardiovascular disease- is in the process of establishing with a new internet and e business project manager- Dr. Phillips (Dr. Miller is moving to the [place], [place] area). Scheduled to see Dr. Phillips in March of this year. Cardiovascular risk factors: diabetes mellitus, dyslipidemia, obesity (BMI >= 30 kg/m2), and sedentary lifestyle Current diabetic medications include Metformin . Eye exam current (within one year): No - reminded to schedule Dental exam current (within one year): No - reminded to schedule Weight trend: stable Prior visit with anesthesiology technologist: No Current diet: in general, an unhealthy diet Current exercise: none- signing up at local recreation center today Current monitoring regimen: home blood tests - daily Home blood sugar records: fasting range: 118-212 and postprandial range: 170-212 Any episodes of hypoglycemia? No Is She on CLAUDIA inhibitor or angiotensin II receptor yeyo? Yes losartan (Cozaar)- blood pressure is stable today at 120/72 Currently on statin therapy? Yes - Atorvastatin Last urine microalbumin was less than 6 mg/L on 11/15/21. Last foot exam was: unknown- will do today. Sleep Apnea: Wears a CPAP and states she struggles to keep it on her face- pulls it off in her sleep. Feels the current settings are working well for her when she is able to keep it on. Insomnia: Will wake up multiple times through the night but has been able to fall back asleep recently. GERD: Takes Pepcid as prescribed. Feels symptoms are well controlled. OA: Not currently taking anything for pain and feels symptoms are stable. Hypothyroidism: Takes her Levothyroxine daily as prescribed. Will check her TSH level today. Health Maintenance: Colon cancer screening: Cologuard 09/29/20. Declines a Tdap vaccination. Declines to be vaccinated for Hep B. Declines to be vaccinated for shingles. Declines screening for HIV andHep C. Mammogram: 04/23/22. Current on pneumonia vaccinations: PPSV23 on 08/25/18 and PCV13 on 11/15/21. Vaccinated for COVID-19 x5 with most recent dose on 05/05/22. Has had a hysterectomy and no longergets pap smears. I have reviewed and reconciled the medication list with the patient today. Current Outpatient Medications Medication Sig Dispense Refill ascorbic acid (Vitamin C) 250 MG tablet Take 250 mg by mouth in the morning. ASPIRIN 81 PO Take 81 mg by mouth. Blood Glucose Calibration (OneTouch Verio) High solution clopidogrel (Plavix) 75 MG tablet Take 1 tablet (75 mg) by mouth daily. 90 tablet 1 coenzyme Q-10 10 MG capsule coenzyme Q10 Ubidecarenone Active 100 MG DAILY August 02, 2018 1:02pm 08-02-2018 [facility] ([id number]) famotidine (Pepcid) 40 MG tablet Take 1 tablet (40 mg) by mouth every evening. 90 tablet 1 fluticasone (Flonase) 50 MCG/ACT nasal spray USE 2 SPRAY(S) IN EACH NOSTRIL ONCE DAILY levothyroxine (Synthroid, Levoxyl) 50 MCG tablet Take 1 tablet by mouth once daily 90 tablet 1 losartan (Cozaar) 50 MG tablet Take 1 tablet (50 mg) by mouth daily. 90 tablet 1 metFORMIN XR (Glucophage-XR) 500 MG 24 hr tablet Take 2 tablets (1,000 mg) by mouth in the morning and 2 tablets (1,000 mg) in the evening. Take with meals. 360 tablet 1 nitroglycerin (Nitrostat) 0.4 MG SL tablet every 5 minutes as needed for chest pain up to 3 doses total Pharmacist Choice Lancets misc tiZANidine (Zanaflex) 4 MG tablet Take 1 tablet (4 mg) by mouth every 6 hours as needed for muscle spasms for up to 10 days. 30 tablet 0 zinc 100 MG tablet Take by mouth. atorvastatin (Lipitor) 40 MG tablet Take 1 tablet (40 mg) by mouth daily. 90 tablet 1 ketoconazole (NIZOral) 2 % shampoo Shampoo daily, leave on for 5-10 minutes, then rinse. 120 mL 0 metoprolol tartrate (Lopressor) 100 MG tablet Take 1 tablet (100 mg) by mouth 2 times daily. 180 tablet 1 OneTouch Verio test strip USE STRIP TO CHECK GLUCOSE THREE TIMES DAILY 100 each 1 No current facility-administered medications for this visit. Medications Discontinued During This Encounter Medication Reason Nystop 899943 UNIT/GM powder Med list cleanup metoprolol tartrate (Lopressor) 100 MG tablet Reorder OneTouch Verio test strip Reorder atorvastatin (Lipitor) 40 MG tablet Reorder ketoconazole (NIZOral) 2 % shampoo Reorder List of current healthcare providers: Patient Care Team: Romulo Latif MD as PCP - General The following health maintenance schedule was reviewed with the patient and provided in printed form in the after visit summary: Health Maintenance Topic Date Due Echocardiogram Never done Diabetes: Retinopathy Screening Never done Diabetes: Hemoglobin A1C 09/09/2022 Lipid Panel 11/15/2022 Diabetes: Urine Protein Screening 11/15/2022 TSH Level 11/15/2022 Colorectal Cancer Screening 10/11/2023 DTaP/Tdap/Td Vaccines (1 - Tdap) 06/09/2023 (Originally 1979) Hepatitis B Vaccines (1 of 3 - 3-dose series) 06/09/2023 (Originally 1960) Zoster Vaccines (1 of 2) 06/09/2023 (Originally 2010) HIV Screening 06/09/2023 (Originally 1960) Hepatitis C Screening 06/09/2023 (Originally 1978) Diabetes: Dental Exam 06/09/2023 (Originally 1970) Mammogram 04/23/2023 Creatinine Level 06/09/2023 Potassium Level 06/09/2023 Diabetes: Foot Exam 11/18/2023 Pneumococcal Vaccine: Pediatrics (0 to 5 Years) and At-Risk Patients (6 to 64 Years) (3 - PPSV23 ifavailable, else PCV20) 2025 MMR Vaccines Completed Influenza Vaccine Completed COVID-19 Vaccine Completed HIB Vaccines Aged Out IPV Vaccines Aged Out Hepatitis A Vaccines Aged Out Meningococcal Vaccine Aged Out Rotavirus Vaccines Aged Out HPV Vaccines Aged Out Orders Placed This Encounter Procedures CBC Standing Status: Future Number of Occurrences: 1 Standing Expiration Date: 11/18/2023 Comprehensive metabolic panel Standing Status: Future Number of Occurrences: 1 Standing Expiration Date: 11/18/2023 Lipid panel Standing Status: Future Number of Occurrences: 1 Standing Expiration Date: 11/18/2023 TSH Standing Status: Future Number of Occurrences: 1 Standing Expiration Date: 11/18/2023 Hemoglobin A1c Standing Status: Future Number of Occurrences: 1 Standing Expiration Date: 11/18/2023 Microalbumin / creatinine urine ratio Standing Status: Future Number of Occurrences: 1 Standing Expiration Date: 11/18/2023 External referral to Audiology [facility] [address] [facility] [place] [address] P: Standing Status: Future Standing Expiration Date: 05/20/2023 Referral Priority: Routine Referral Type: Consultation Referral Reason: Specialty Services Required Requested Specialty: Audiology Number of Visits Requested: 1 Hm Diabetes Foot Exam Health Risk Assessment: General In general, how would you say your health is?: Good In the past 7 days, have you experienced any of the following: New or Increased Pain, New or Increased Fatigue, Loneliness, Social Isolation, Stress or Anger?: (!) Yes Select all that apply: Loneliness Do you get the social and emotional suppport you need?: Yes Interventions: Loneliness: Spending time with her daughter helps Health Habits / Nutrition On average, how many days per week do you engage in moderate to strenous exercise (like a brisk walk)?: 3 days On average, how man minutes do you engage in exercise at this level?: 30 min Have you lost any weight without trying in the past 3 months? : No Have you seen the dentist within the past year?: (!) No Interventions: Dental exam overdue: Patient encouraged to make appointment with his / her dentist Hearing / Vision Do you or your family notice any trouble with your hearing that hasn't been managed with hearing aids?: (!) Yes (tinnitus) Do you have difficulty driving, watching TV, or doing any of your daily activities because of your eyesight?: No Have you had an eye exam within the past year?: (!) No No results found. Interventions: Hearing concerns: Audiology referral provided and Vision concerns: Patient encouraged to make appointment with his / her sustainability specialist Safety Do you have a working smoke detector?: Yes Do you have any tripping hazards - loose or unsecured carpets or rugs?: No Do you have any tripping hazards - clutter in doorways, halls, or stairs?: No Do you have either shower bars, grab bars, non-slip mats or non-slip surfaces in your shower or bathtub? : Yes Do all your stairways have a railing or banister? : Not Applicable Do you fasten your seatbelt when you are in a car?: Yes Interventions: N/A ADL In the past 7 days, did you need help from others to perform any of the following everyday activities: Eating, dressing, grooming,bathing, toileting, or walking / balance? : No In the past 7 days, did you need help from others to take care of any of the following: laundry, housekeeping, banking / finances,shopping, telephone use, food preparation, transportation, or taking medications? : No Interventions: N/A Living Will Do you have a living will?: No Interventions: Informational packet provided with forms Cognitive: Cognitive Screening: Mini-Cog Clock Drawing Test (CDT): 2 Words Recalled: 2 Total Score: 4 Total Score Interpretation: Normal Mini-Cog Hypertension: No Interventions: N/A Fall Risk: 11/17/2022 0833 Fall Risk One or more falls in the last year: No Advised to use a cane or walker to get around safely: No Feels unsteady when walking: No Steadies self on furniture while walking at home: No Worried about falling: No Interventions: N/A Depression Screening: Over the past 2 weeks, how often have you been bothered by any of the following problems? Little interest or pleasure in doing things: Not at all Feeling down, depressed, or hopeless: Not at all Patient Health Questionnaire-2 Score: 0 Interventions: N/A N/A Tobacco Use: Social History Tobacco Use Smoking Status Never Smokeless Tobacco Never Interventions: N/A Alcohol Use: Audit Alcohol Screening Q1: How often do you have a drink containing alcohol?: Never Q2: How many drinks containing alcohol do you have on a typical day when you are drinking?: Patientdoes not drink Q3: How often do you have six or more drinks on one occasion?: Never Audit-C Score: 0 Skip to questions 9-10?: 1 Q4: How often during the last year have you found that you were not able to stop drinking once you had started?: Never Q5: How often during the last year have you failed to do what was normally expected from you because of drinking?: Never Q6: How often during the last year have you needed an alcoholic drink first thing in the morning toget yourself going after a night of heavy drinking?: Never Q7: How often during the last year have you had a feeling of guilt or remorse after drinking?: Never Q8: How often during the last year have you been unable to remember what happened the night before because you had been drinking?: Never Q9: Have you or someone else been injured as a result of your drinking?: No Q10: Has a relative, friend, doctor, or another health professional expressed concern about your drinking or suggested you cut down?: No Audit Total Score: 0 Interventions: N/A Drug Use: Drug Abuse Screening Test (DAST-10) Have you used drugs other than those required for medical reasons?: No Do you use more than one drug at a time?: No Are you always able to stop using drugs when you want to?: No Have you had blackouts or flashbacks as a result of drug use?: No Do you ever feel bad or guilty about your drug use?: No Does your spouse (or parents) ever complain about your involvement with drugs?: No Have you ever neglected your family or missed work because of your use of drugs?: No Have you engaged in illegal activities in order to obtain drugs?: No Have you ever experienced withdrawal symptoms as a result of heavy drug intake?: No Have you had medical problems as a result of your drug use (e.g., memory loss, hepatitis, convulsions, bleeding, etc.)?: No DAST-10 Score: 1 Interventions: N/A Review of Systems Constitutional: Negative for chills and fever. HENT: Positive for hearing loss. Negative for trouble swallowing. Eyes: Negative for pain and visual disturbance. Respiratory: Negative for cough, chest tightness, shortness of breath and wheezing. Cardiovascular: Negative for chest pain and leg swelling. Gastrointestinal: Negative for abdominal distention, abdominal pain, blood in stool, constipation and diarrhea. Endocrine: Negative for cold intolerance, heat intolerance, polydipsia, polyphagia and polyuria. Genitourinary: Negative for dysuria and hematuria. Musculoskeletal: Positive for arthralgias. Skin: Negative for color change, pallor, rash and wound. Neurological: Negative for dizziness, syncope, weakness and headaches. Hematological: Does not bruise/bleed easily. Psychiatric/Behavioral: Negative for dysphoric mood. The patient is not nervous/anxious. Immunization History Administered Date(s) Administered Covid-19, Pfizer Bivalent Booster, (Age 12y+), Im, 30 Mcg/0e 05/05/2022 Covid-19, Pfizer Lemon Top, Do Not Dilute, (Age 12 Y+), Im, L 11/27/2021 Influenza, Unspecified 04/25/2014, 04/27/2015, 03/20/2017 Influenza, injectable, quadrivalent 05/13/2016, 03/18/2017, 04/06/2020 Influenza, injectable, quadrivalent, preservative free 03/18/2017, 04/06/2018, 04/22/2019 Influenza, recombinant, quadrivalent, injectable, preservative free 03/25/2021, 05/05/2022 MMR 1961 Pfizer SARS-CoV-2 Vaccination 09/28/2020, 10/19/2020, 04/25/2021 Pneumococcal Conjugate PCV 13 11/15/2021 Pneumococcal Polysaccharide PPSV23 08/25/2018 Allergies Allergen Reactions Lisinopril Other Trimethoprim Sulfamethoxazole-Trimethoprim Hives and Rash Other reaction(s): Hives and/or rash Clarithromycin Hives Nitrofurantoin Macrocrystal Sulfa Antibiotics Hives Other reaction(s): Hives and/or rash Clindamycin/Lincomycin Hives and Rash Other reaction(s): Rash Erythromycin Hives and Rash Nitrofurantoin Hives and Rash Outpatient Medications Prior to Visit Medication Sig Dispense Refill ascorbic acid (Vitamin C) 250 MG tablet Take 250 mg by mouth in the morning. ASPIRIN 81 PO Take 81 mg by mouth. Blood Glucose Calibration (OneTouch Verio) High solution clopidogrel (Plavix) 75 MG tablet Take 1 tablet (75 mg) by mouth daily. 90 tablet 1 coenzyme Q-10 10 MG capsule coenzyme Q10 Ubidecarenone Active 100 MG DAILY August 02, 2018 1:02pm 08-02-2018 [facility] ([id number]) famotidine (Pepcid) 40 MG tablet Take 1 tablet (40 mg) by mouth every evening. 90 tablet 1 fluticasone (Flonase) 50 MCG/ACT nasal spray USE 2 SPRAY(S) IN EACH NOSTRIL ONCE DAILY levothyroxine (Synthroid, Levoxyl) 50 MCG tablet Take 1 tablet by mouth once daily 90 tablet 1 losartan (Cozaar) 50 MG tablet Take 1 tablet (50 mg) by mouth daily. 90 tablet 1 metFORMIN XR (Glucophage-XR) 500 MG 24 hr tablet Take 2 tablets (1,000 mg) by mouth in the morning and 2 tablets (1,000 mg) in the evening. Take with meals. 360 tablet 1 nitroglycerin (Nitrostat) 0.4 MG SL tablet every 5 minutes as needed for chest pain up to 3 doses total Pharmacist Choice Lancets misc tiZANidine (Zanaflex) 4 MG tablet Take 1 tablet (4 mg) by mouth every 6 hours as needed for muscle spasms for up to 10 days. 30 tablet 0 zinc 100 MG tablet Take by mouth. atorvastatin (Lipitor) 40 MG tablet Take 1 tablet (40 mg) by mouth daily. 30 tablet 0 ketoconazole (NIZOral) 2 % shampoo Shampoo daily, leave on for 5-10 minutes, then rinse. 120 mL 0 metoprolol tartrate (Lopressor) 100 MG tablet Take 1 tablet by mouth in the morning and 1 tablet before bedtime. SABIAToPredictvia Verio test strip USE STRIP TO CHECK GLUCOSE THREE TIMES DAILY 100 each 1 Nystop 550159 UNIT/GM powder APPLY POWDER TOPICALLY TO AFFECTED AREA THREE TIMES DAILY No facility-administered medications prior to visit. Past Medical History: Diagnosis Date Abnormal weight gain Acute URI 12/19/2021 Cardiomyopathy (HCC) Cardiomyopathy (HCC) CHF (congestive heart failure) (CMS/HCC) (HCC) CHF (congestive heart failure) (CMS/HCC) (HCC) Diabetes (HCC) DJD (degenerative joint disease) Edema GERD (gastroesophageal reflux disease) Hypothyroidism Insomnia Knee pain [place] (myocardial infarction) (CMS/HCC) (HCC) Nasal congestion 10/16/2022 Obesity Type II or unspecified type diabetes mellitus without mention of complication, not stated as uncontrolled (HCC) Unspecified sleep apnea Social History Socioeconomic History Marital status: Tobacco Use Smoking status: Never Smokeless tobacco: Never Substance and Sexual Activity Alcohol use: No Alcohol/week: 0.0 standard drinks Drug use: No Past Surgical History: Procedure Laterality Date BUNIONECTOMY CARDIAC CATHETERIZATION 08/16/2019 CARDIAC CATHETERIZATION Stent Placement CARPAL TUNNEL RELEASE HEMORRHOID SURGERY DOPPLER-GUIDED LIGATION JOINT REPLACEMENT KNEE RIGHT TONSILLECTOMY AND ADENOIDECTOMY (HISTORICAL) TOTAL VAGINAL HYSTERECTOMY Past Surgical History: Procedure Laterality Date BUNIONECTOMY CARDIAC CATHETERIZATION 08/16/2019 CARDIAC CATHETERIZATION Stent Placement CARPAL TUNNEL RELEASE HEMORRHOID SURGERY DOPPLER-GUIDED LIGATION JOINT REPLACEMENT KNEE RIGHT TONSILLECTOMY AND ADENOIDECTOMY (HISTORICAL) TOTAL VAGINAL HYSTERECTOMY Family History Problem Relation Name Age of Onset Heart disease Brother Cancer Father Cancer Mother Diabetes Mother Heart disease Sister High Blood Pressure Father Asthma Brother Objective BP 120/72 Pulse 60 Ht 5' 3.5 (1.613 m) Wt 244 lb (111 kg) SpO2 99% BMI 42.54 kg/m Physical Exam Constitutional: General: Not in acute distress. Appearance: Not ill-appearing or diaphoretic. HENT: Head: Normocephalic and atraumatic. Right Ear: Tympanic membrane, ear canal and external ear normal. Left Ear: Tympanic membrane, ear canal and external ear normal. Nose: Nose normal. No congestion or rhinorrhea. Mouth/Throat: Mouth: Mucous membranes are moist. Pharynx: Oropharynx is clear. No oropharyngeal exudate or posterior oropharyngeal erythema. Eyes: General: No scleral icterus. Extraocular Movements: Extraocular movements intact. Pupils: Pupils are equal, round, and reactive to light. Neck: Thyroid: No thyroid mass or thyromegaly. Vascular: No carotid bruit. Cardiovascular: Rate and Rhythm: Normal rate and regular rhythm. Pulses: Normal pulses. Heart sounds: Normal heart sounds. No murmur heard. No friction rub. Pulmonary: Effort: Pulmonary effort is normal. Breath sounds: Normal breath sounds. No wheezing, rhonchi or rales. Abdominal: General: Bowel sounds are normal. Palpations: Abdomen is soft. There is no hepatomegaly, splenomegaly or mass. Tenderness: There is no abdominal tenderness. Protuberant abdomen impairing examination. Musculoskeletal: General: No deformity. Normal range of motion. Cervical back: Normal range of motion and neck supple. Right lower leg: No edema. Left lower leg: No edema. Lymphadenopathy: Cervical: No cervical adenopathy. Skin: General: Skin is warm and dry. Coloration: Skin is not jaundiced or pale. Findings: No erythema. Diabetic foot check: Normal strength and range of motion of toes, feet, and ankles bilaterally. No joint deformity. No cyanosis or clubbing. 100% sensation with 10 gram filament. Dorsalis pedis pulses intact bilaterally. Capillary refill at the toes was less than 2 seconds. Light touch sensation intact bilaterally. Hair growth present on feet and toes bilaterally. No skin breakdown, erythema, rubspots, blisters, scaling, or ulcers. No calluses or corns. Toenails thin and not ingrown. No evidence of fungal infection. Neurological: Mental Status: Alert and oriented to person, place, and time. Motor: No weakness. Gait: Gait normal. Psychiatric: Mood and Affect: Mood normal. Behavior: Behavior normal. Thought Content: Thought content normal. Judgment: Judgment normal. Data Reviewed Labs: Imaging/Testing: IRISH Ramirez CNP 11/17/2022 9:05 AM documented in this [facility]05-01-2023 History of Present illness Narrative* IRISH Ramirez CNP - 11/17/2022 8:20 AM EDT Images from the original note were not included. [facility] [address] [address] Visit type: Established Patient Reason for Visit: Medicare Annual Wellness Visit Initial (Wants to discuss trulicity) and Health Maintenance (Hep C--declines, HIV--declines, Colon--discuss may be interested in Dr Montelongo, Dm eye--will be scheduling appointment, Tdap--declines, Hep B--declines, Shingles-- insurance will not cover she will have to pay 85 out of pocket) Assessment and Plan 1. Medicare annual wellness visit, subsequent - Encouraged a healthy diet low in cholesterol and saturated fats. - Encouraged regular exercise. 2. Diabetes mellitus type 2 in obese ([facility]) ([facility]) - CBC - Comprehensive metabolic panel - Hemoglobin A1c - Microalbumin / creatinine urine ratio - Diabetes Foot Exam - OneTouch Verio test strip; USE STRIP TO CHECK GLUCOSE THREE TIMES DAILY, Normal - Not well controlled. Will check blood work today- discussed start on GLP-1 injections pending [id number]. 3. Encounter for diabetic foot exam ([facility]) - Diabetes Foot Exam 4. Congestive heart failure, unspecified HF chronicity, unspecified heart failure type ([facility]) - CBC - Comprehensive metabolic panel - metoprolol tartrate (Lopressor) 100 MG tablet; Take 1 tablet (100 mg) by mouth 2 times daily., Starting 11/17/2022, Normal - Stable. Follow up with specialist as directed. 5. Cardiomyopathy, unspecified type ([facility]) - CBC - Comprehensive metabolic panel - metoprolol tartrate (Lopressor) 100 MG tablet; Take 1 tablet (100 mg) by mouth 2 times daily., Starting 11/17/2022, Normal - Stable. Follow up with specialist as directed. 6. Class 3 severe obesity due to excess calories with serious comorbidity and body mass index (BMI)of 40.0 to 44.9 in adult ([facility]) - CBC - Comprehensive metabolic panel - Encouraged healthy diet and regular exercise. 7. Hyperlipidemia, unspecified hyperlipidemia type - [facility] - Comprehensive metabolic panel - Lipid panel - atorvastatin (Lipitor) 40 MG tablet; Take 1 tablet (40 mg) by mouth daily., Starting 11/17/2022, Normal - Stable with Atorvastatin. Will continue current treatment plan. 8. Sleep apnea, unspecified type - CBC - Comprehensive metabolic panel - Stable. 9. Insomnia, unspecified type - CBC - Comprehensive metabolic panel - Stable. 10. Gastroesophageal reflux disease, unspecified whether esophagitis present - CBC - Comprehensive metabolic panel - Stable with Pepcid. Will continue current treatment plan. 11. Osteoarthritis, unspecified osteoarthritis type, unspecified site - CBC - Comprehensive metabolic panel - Stable. 12. Hypothyroidism, unspecified type - CBC - Comprehensive metabolic panel - TSH - Stable with Levothyroxine. Will continue current treatment plan. 13. Tinnitus of both ears - External referral to Audiology Follow up in about 3 months (around 02/17/2023) for diabetes management. Sun HPI- Yue presents today for her annual Medicare physical and blood work. Diabetes Mellitus Type II: Current symptoms/problems include none. Most recent hemoglobin A1c was 10.1% on 03/10/22. Known diabetic complications: cardiovascular disease- is in the process of establishing with a new internet and e business project manager- Dr. Phillips (Dr. Miller is moving to the [place], [place] area). Scheduled to see Dr. Phillips in March of this year. Cardiovascular risk factors: diabetes mellitus, dyslipidemia, obesity (BMI >= 30 kg/m2), and sedentary lifestyle Current diabetic medications include Metformin . Eye exam current (within one year): No - reminded to schedule Dental exam current (within one year): No - reminded to schedule Weight trend: stable Prior visit with anesthesiology technologist: No Current diet: in general, an unhealthy diet Current exercise: none- signing up at local recreation center today Current monitoring regimen: home blood tests - daily Home blood sugar records: fasting range: 118-212 and postprandial range: 170-212 Any episodes of hypoglycemia? No Is She on CLAUDIA inhibitor or angiotensin II receptor yeyo? Yes losartan (Cozaar)- blood pressure is stable today at 120/72 Currently on statin therapy? Yes - Atorvastatin Last urine microalbumin was less than 6 mg/L on 11/15/21. Last foot exam was: unknown- will do today. Sleep Apnea: Wears a CPAP and states she struggles to keep it on her face- pulls it off in her sleep. Feels the current settings are working well for her when she is able to keep it on. Insomnia: Will wake up multiple times through the night but has been able to fall back asleep recently. GERD: Takes Pepcid as prescribed. Feels symptoms are well controlled. OA: Not currently taking anything for pain and feels symptoms are stable. Hypothyroidism: Takes her Levothyroxine daily as prescribed. Will check her TSH level today. Health Maintenance: Colon cancer screening: [facility] 09/29/20. Declines a Tdap vaccination. Declines to be vaccinated for Hep B. Declines to be vaccinated for shingles. Declines screening for HIV andHep C. Mammogram: 04/23/22. Current on pneumonia vaccinations: PPSV23 on 08/25/18 and PCV13 on 11/15/21. Vaccinated for COVID-19 x5 with most recent dose on 05/05/22. Has had a hysterectomy and no longergets pap smears. I have reviewed and reconciled the medication list with the patient today. Current Outpatient Medications Medication Sig Dispense Refill ascorbic acid (Vitamin C) 250 MG tablet Take 250 mg by mouth in the morning. ASPIRIN 81 PO Take 81 mg by mouth. Blood Glucose Calibration ([employer] Verio) High solution clopidogrel (Plavix) 75 MG tablet Take 1 tablet (75 mg) by mouth daily. 90 tablet 1 coenzyme Q-10 10 MG capsule coenzyme Q10 Ubidecarenone Active 100 MG DAILY August 02, 2018 1:02pm 08-02-2018 [facility] ([id number]) famotidine (Pepcid) 40 MG tablet Take 1 tablet (40 mg) by mouth every evening. 90 tablet 1 fluticasone (Flonase) 50 MCG/ACT nasal spray USE 2 SPRAY(S) IN EACH NOSTRIL ONCE DAILY levothyroxine (Synthroid, Levoxyl) 50 MCG tablet Take 1 tablet by mouth once daily 90 tablet 1 losartan (Cozaar) 50 MG tablet Take 1 tablet (50 mg) by mouth daily. 90 tablet 1 metFORMIN XR (Glucophage-XR) 500 MG 24 hr tablet Take 2 tablets (1,000 mg) by mouth in the morning and 2 tablets (1,000 mg) in the evening. Take with meals. 360 tablet 1 nitroglycerin (Nitrostat) 0.4 MG SL tablet every 5 minutes as needed for chest pain up to 3 doses total Pharmacist Choice Lancets misc tiZANidine (Zanaflex) 4 MG tablet Take 1 tablet (4 mg) by mouth every 6 hours as needed for muscle spasms for up to 10 days. 30 tablet 0 zinc 100 MG tablet Take by mouth. atorvastatin (Lipitor) 40 MG tablet Take 1 tablet (40 mg) by mouth daily. 90 tablet 1 ketoconazole (NIZOral) 2 % shampoo Shampoo daily, leave on for 5-10 minutes, then rinse. 120 mL 0 metoprolol tartrate (Lopressor) 100 MG tablet Take 1 tablet (100 mg) by mouth 2 times daily. 180 tablet 1 OneTouch Verio test strip USE STRIP TO CHECK GLUCOSE THREE TIMES DAILY 100 each 1 No current facility-administered medications for this visit. Medications Discontinued During This Encounter Medication Reason Nystop [id number] UNIT/GM powder Med list cleanup metoprolol tartrate (Lopressor) 100 MG tablet Reorder OneTouch Verio test strip Reorder atorvastatin (Lipitor) 40 MG tablet Reorder ketoconazole (NIZOral) 2 % shampoo Reorder List of current healthcare providers: Patient Care Team: Romulo Latif MD as PCP - General The following health maintenance schedule was reviewed with the patient and provided in printed form in the after visit summary: Health Maintenance Topic Date Due Echocardiogram Never done Diabetes: Retinopathy Screening Never done Diabetes: Hemoglobin A1C 09/09/2022 Lipid Panel 11/15/2022 Diabetes: Urine Protein Screening 11/15/2022 TSH Level 11/15/2022 Colorectal Cancer Screening 10/11/2023 DTaP/Tdap/Td Vaccines (1 - Tdap) 06/09/2023 (Originally 1979) Hepatitis B Vaccines (1 of 3 - 3-dose series) 06/09/2023 (Originally 1960) Zoster Vaccines (1 of 2) 06/09/2023 (Originally 2010) HIV Screening 06/09/2023 (Originally 1960) Hepatitis C Screening 06/09/2023 (Originally 1978) Diabetes: Dental Exam 06/09/2023 (Originally 1970) Mammogram 04/23/2023 Creatinine Level 06/09/2023 Potassium Level 06/09/2023 Diabetes: Foot Exam 11/18/2023 Pneumococcal Vaccine: Pediatrics (0 to 5 Years) and At-Risk Patients (6 to 64 Years) (3 - PPSV23 ifavailable, else PCV20) 2025 MMR Vaccines Completed Influenza Vaccine Completed COVID-19 Vaccine Completed HIB Vaccines Aged Out IPV Vaccines Aged Out Hepatitis A Vaccines Aged Out Meningococcal Vaccine Aged Out Rotavirus Vaccines Aged Out HPV Vaccines Aged Out Orders Placed This Encounter Procedures CBC Standing Status: Future Number of Occurrences: 1 Standing Expiration Date: 11/18/2023 Comprehensive metabolic panel Standing Status: Future Number of Occurrences: 1 Standing Expiration Date: 11/18/2023 Lipid panel Standing Status: Future Number of Occurrences: 1 Standing Expiration Date: 11/18/2023 TSH Standing Status: Future Number of Occurrences: 1 Standing Expiration Date: 11/18/2023 Hemoglobin A1c Standing Status: Future Number of Occurrences: 1 Standing Expiration Date: 11/18/2023 Microalbumin / creatinine urine ratio Standing Status: Future Number of Occurrences: 1 Standing Expiration Date: 11/18/2023 External referral to Audiology [facility] [address] [facility] [place] [address] P: Standing Status: Future Standing Expiration Date: 05/20/2023 Referral Priority: Routine Referral Type: Consultation Referral Reason: Specialty Services Required Requested Specialty: Audiology Number of Visits Requested: 1 Hm Diabetes Foot Exam Health Risk Assessment: General In general, how would you say your health is?: Good In the past 7 days, have you experienced any of the following: New or Increased Pain, New or Increased Fatigue, Loneliness, Social Isolation, Stress or Anger?: (!) Yes Select all that apply: Loneliness Do you get the social and emotional suppport you need?: Yes Interventions: Loneliness: Spending time with her daughter helps Health Habits / Nutrition On average, how many days per week do you engage in moderate to strenous exercise (like a brisk walk)?: 3 days On average, how man minutes do you engage in exercise at this level?: 30 min Have you lost any weight without trying in the past 3 months? : No Have you seen the dentist within the past year?: (!) No Interventions: Dental exam overdue: Patient encouraged to make appointment with his / her dentist Hearing / Vision Do you or your family notice any trouble with your hearing that hasn't been managed with hearing aids?: (!) Yes (tinnitus) Do you have difficulty driving, watching TV, or doing any of your daily activities because of your eyesight?: No Have you had an eye exam within the past year?: (!) No No results found. Interventions: Hearing concerns: Audiology referral provided and Vision concerns: Patient encouraged to make appointment with his / her sustainability specialist Safety Do you have a working smoke detector?: Yes Do you have any tripping hazards - loose or unsecured carpets or rugs?: No Do you have any tripping hazards - clutter in doorways, halls, or stairs?: No Do you have either shower bars, grab bars, non-slip mats or non-slip surfaces in your shower or bathtub? : Yes Do all your stairways have a railing or banister? : Not Applicable Do you fasten your seatbelt when you are in a car?: Yes Interventions: N/A ADL In the past 7 days, did you need help from others to perform any of the following everyday activities: Eating, dressing, grooming,bathing, toileting, or walking / balance? : No In the past 7 days, did you need help from others to take care of any of the following: laundry, housekeeping, banking / finances,shopping, telephone use, food preparation, transportation, or taking medications? : No Interventions: N/A Living Will Do you have a living will?: No Interventions: Informational packet provided with forms Cognitive: Cognitive Screening: Mini-Cog Clock Drawing Test (CDT): 2 Words Recalled: 2 Total Score: 4 Total Score Interpretation: Normal Mini-Cog Hypertension: No Interventions: N/A Fall Risk: 11/17/2022 0833 Fall Risk One or more falls in the last year: No Advised to use a cane or walker to get around safely: No Feels unsteady when walking: No Steadies self on furniture while walking at home: No Worried about falling: No Interventions: N/A Depression Screening: Over the past 2 weeks, how often have you been bothered by any of the following problems? Little interest or pleasure in doing things: Not at all Feeling down, depressed, or hopeless: Not at all Patient Health Questionnaire-2 Score: 0 Interventions: N/A N/A Tobacco Use: Social History Tobacco Use Smoking Status Never Smokeless Tobacco Never Interventions: N/A Alcohol Use: Audit Alcohol Screening Q1: How often do you have a drink containing alcohol?: Never Q2: How many drinks containing alcohol do you have on a typical day when you are drinking?: Patientdoes not drink Q3: How often do you have six or more drinks on one occasion?: Never Audit-C Score: 0 Skip to questions 9-10?: 1 Q4: How often during the last year have you found that you were not able to stop drinking once you had started?: Never Q5: How often during the last year have you failed to do what was normally expected from you because of drinking?: Never Q6: How often during the last year have you needed an alcoholic drink first thing in the morning toget yourself going after a night of heavy drinking?: Never Q7: How often during the last year have you had a feeling of guilt or remorse after drinking?: Never Q8: How often during the last year have you been unable to remember what happened the night before because you had been drinking?: Never Q9: Have you or someone else been injured as a result of your drinking?: No Q10: Has a relative, friend, doctor, or another health professional expressed concern about your drinking or suggested you cut down?: No Audit Total Score: 0 Interventions: N/A Drug Use: Drug Abuse Screening Test (DAST-10) Have you used drugs other than those required for medical reasons?: No Do you use more than one drug at a time?: No Are you always able to stop using drugs when you want to?: No Have you had blackouts or flashbacks as a result of drug use?: No Do you ever feel bad or guilty about your drug use?: No Does your spouse (or parents) ever complain about your involvement with drugs?: No Have you ever neglected your family or missed work because of your use of drugs?: No Have you engaged in illegal activities in order to obtain drugs?: No Have you ever experienced withdrawal symptoms as a result of heavy drug intake?: No Have you had medical problems as a result of your drug use (e.g., memory loss, hepatitis, convulsions, bleeding, etc.)?: No DAST-10 Score: 1 Interventions: N/A Review of Systems Constitutional: Negative for chills and fever. HENT: Positive for hearing loss. Negative for trouble swallowing. Eyes: Negative for pain and visual disturbance. Respiratory: Negative for cough, chest tightness, shortness of breath and wheezing. Cardiovascular: Negative for chest pain and leg swelling. Gastrointestinal: Negative for abdominal distention, abdominal pain, blood in stool, constipation and diarrhea. Endocrine: Negative for cold intolerance, heat intolerance, polydipsia, polyphagia and polyuria. Genitourinary: Negative for dysuria and hematuria. Musculoskeletal: Positive for arthralgias. Skin: Negative for color change, pallor, rash and wound. Neurological: Negative for dizziness, syncope, weakness and headaches. Hematological: Does not bruise/bleed easily. Psychiatric/Behavioral: Negative for dysphoric mood. The patient is not nervous/anxious. Immunization History Administered Date(s) Administered Covid-19, Pfizer Bivalent Booster, (Age 12y+), Im, 30 Mcg/0e 05/05/2022 Covid-19, Pfizer Lemon Top, Do Not Dilute, (Age 12 Y+), Im, L 11/27/2021 Influenza, Unspecified 04/25/2014, 04/27/2015, 03/20/2017 Influenza, injectable, quadrivalent 05/13/2016, 03/18/2017, 04/06/2020 Influenza, injectable, quadrivalent, preservative free 03/18/2017, 04/06/2018, 04/22/2019 Influenza, recombinant, quadrivalent, injectable, preservative free 03/25/2021, 05/05/2022 MMR 1961 Pfizer SARS-CoV-2 Vaccination 09/28/2020, 10/19/2020, 04/25/2021 Pneumococcal Conjugate PCV 13 11/15/2021 Pneumococcal Polysaccharide PPSV23 08/25/2018 Allergies Allergen Reactions Lisinopril Other Trimethoprim Sulfamethoxazole-Trimethoprim Hives and Rash Other reaction(s): Hives and/or rash Clarithromycin Hives Nitrofurantoin Macrocrystal Sulfa Antibiotics Hives Other reaction(s): Hives and/or rash Clindamycin/Lincomycin Hives and Rash Other reaction(s): Rash Erythromycin Hives and Rash Nitrofurantoin Hives and Rash Outpatient Medications Prior to Visit Medication Sig Dispense Refill ascorbic acid (Vitamin C) 250 MG tablet Take 250 mg by mouth in the morning. ASPIRIN 81 PO Take 81 mg by mouth. Blood Glucose Calibration (Spinlister VerSidecar) High solution clopidogrel (Plavix) 75 MG tablet Take 1 tablet (75 mg) by mouth daily. 90 tablet 1 coenzyme Q-10 10 MG capsule coenzyme Q10 Ubidecarenone Active 100 MG DAILY August 02, 2018 1:02pm 08-02-2018 [facility] ([id number]) famotidine (Pepcid) 40 MG tablet Take 1 tablet (40 mg) by mouth every evening. 90 tablet 1 fluticasone (Flonase) 50 MCG/ACT nasal spray USE 2 SPRAY(S) IN EACH NOSTRIL ONCE DAILY levothyroxine (Synthroid, Levoxyl) 50 MCG tablet Take 1 tablet by mouth once daily 90 tablet 1 losartan (Cozaar) 50 MG tablet Take 1 tablet (50 mg) by mouth daily. 90 tablet 1 metFORMIN XR (Glucophage-XR) 500 MG 24 hr tablet Take 2 tablets (1,000 mg) by mouth in the morning and 2 tablets (1,000 mg) in the evening. Take with meals. 360 tablet 1 nitroglycerin (Nitrostat) 0.4 MG SL tablet every 5 minutes as needed for chest pain up to 3 doses total Pharmacist Choice Lancets misc tiZANidine (Zanaflex) 4 MG tablet Take 1 tablet (4 mg) by mouth every 6 hours as needed for muscle spasms for up to 10 days. 30 tablet 0 zinc 100 MG tablet Take by mouth. atorvastatin (Lipitor) 40 MG tablet Take 1 tablet (40 mg) by mouth daily. 30 tablet 0 ketoconazole (NIZOral) 2 % shampoo Shampoo daily, leave on for 5-10 minutes, then rinse. 120 mL 0 metoprolol tartrate (Lopressor) 100 MG tablet Take 1 tablet by mouth in the morning and 1 tablet before bedtime. OneTouch Verio test strip USE STRIP TO CHECK GLUCOSE THREE TIMES DAILY 100 each 1 Nystop [id number] UNIT/GM powder APPLY POWDER TOPICALLY TO AFFECTED AREA THREE TIMES DAILY No facility-administered medications prior to visit. Past Medical History: Diagnosis Date Abnormal weight gain Acute URI 12/19/2021 Cardiomyopathy (HCC) Cardiomyopathy (HCC) CHF (congestive heart failure) (CMS/HCC) (HCC) CHF (congestive heart failure) (CMS/HCC) (HCC) Diabetes (HCC) DJD (degenerative joint disease) Edema GERD (gastroesophageal reflux disease) Hypothyroidism Insomnia Knee pain [place] (myocardial infarction) ([facility]) ([facility]) Nasal congestion 10/16/2022 Obesity Type II or unspecified type diabetes mellitus without mention of complication, not stated as uncontrolled ([facility]) Unspecified sleep apnea Social History Socioeconomic History Marital status: Tobacco Use Smoking status: Never Smokeless tobacco: Never Substance and Sexual Activity Alcohol use: No Alcohol/week: 0.0 standard drinks Drug use: No Past Surgical History: Procedure Laterality Date BUNIONECTOMY CARDIAC CATHETERIZATION 08/16/2019 CARDIAC CATHETERIZATION Stent Placement CARPAL TUNNEL RELEASE HEMORRHOID SURGERY DOPPLER-GUIDED LIGATION JOINT REPLACEMENT KNEE RIGHT TONSILLECTOMY AND ADENOIDECTOMY (HISTORICAL) TOTAL VAGINAL HYSTERECTOMY Past Surgical History: Procedure Laterality Date BUNIONECTOMY CARDIAC CATHETERIZATION 08/16/2019 CARDIAC CATHETERIZATION Stent Placement CARPAL TUNNEL RELEASE HEMORRHOID SURGERY DOPPLER-GUIDED LIGATION JOINT REPLACEMENT KNEE RIGHT TONSILLECTOMY AND ADENOIDECTOMY (HISTORICAL) TOTAL VAGINAL HYSTERECTOMY Family History Problem Relation Name Age of Onset Heart disease Brother Cancer Father Cancer Mother Diabetes Mother Heart disease Sister High Blood Pressure Father Asthma Brother Objective BP 120/72 Pulse 60 Ht 5' 3.5 (1.613 m) Wt 244 lb (111 kg) SpO2 99% BMI 42.54 kg/m Physical Exam Constitutional: General: Not in acute distress. Appearance: Not ill-appearing or diaphoretic. HENT: Head: Normocephalic and atraumatic. Right Ear: Tympanic membrane, ear canal and external ear normal. Left Ear: Tympanic membrane, ear canal and external ear normal. Nose: Nose normal. No congestion or rhinorrhea. Mouth/Throat: Mouth: Mucous membranes are moist. Pharynx: Oropharynx is clear. No oropharyngeal exudate or posterior oropharyngeal erythema. Eyes: General: No scleral icterus. Extraocular Movements: Extraocular movements intact. Pupils: Pupils are equal, round, and reactive to light. Neck: Thyroid: No thyroid mass or thyromegaly. Vascular: No carotid bruit. Cardiovascular: Rate and Rhythm: Normal rate and regular rhythm. Pulses: Normal pulses. Heart sounds: Normal heart sounds. No murmur heard. No friction rub. Pulmonary: Effort: Pulmonary effort is normal. Breath sounds: Normal breath sounds. No wheezing, rhonchi or rales. Abdominal: General: Bowel sounds are normal. Palpations: Abdomen is soft. There is no hepatomegaly, splenomegaly or mass. Tenderness: There is no abdominal tenderness. Protuberant abdomen impairing examination. Musculoskeletal: General: No deformity. Normal range of motion. Cervical back: Normal range of motion and neck supple. Right lower leg: No edema. Left lower leg: No edema. Lymphadenopathy: Cervical: No cervical adenopathy. Skin: General: Skin is warm and dry. Coloration: Skin is not jaundiced or pale. Findings: No erythema. Diabetic foot check: Normal strength and range of motion of toes, feet, and ankles bilaterally. No joint deformity. No cyanosis or clubbing. 100% sensation with 10 gram filament. Dorsalis pedis pulses intact bilaterally. Capillary refill at the toes was less than 2 seconds. Light touch sensation intact bilaterally. Hair growth present on feet and toes bilaterally. No skin breakdown, erythema, rubspots, blisters, scaling, or ulcers. No calluses or corns. Toenails thin and not ingrown. No evidence of fungal infection. Neurological: Mental Status: Alert and oriented to person, place, and time. Motor: No weakness. Gait: Gait normal. Psychiatric: Mood and Affect: Mood normal. Behavior: Behavior normal. Thought Content: Thought content normal. Judgment: Judgment normal. Data Reviewed Labs: Imaging/Testing: IRISH Ramirez CNP 11/17/2022 9:05 AM documented in this [facility]05-01-2023 Instructions* Patient Instructions* IRISH Ramirez CNP - 11/17/2022 8:20 AM EDT [facility] [address] [place] [address] P: documented in this [facility]05-01-2023 Instructions* Patient Instructions* IRISH Ramirez CNP - 11/17/2022 8:20 AM EDT [facility] [address] [facility] [place] [address] P: documented in this [facility]05-01-2023 Miscellaneous Notes* Addendum Note - IRISH Ramirez CNP - 11/17/2022 8:20 AM EDTAddended by: RAFAELA CASTANON on: 11/19/2022 07:00 AM Modules accepted: Orders documented in this [facility]05-01-2023 Note* Addendum Note - IRISH Ramirez CNP - 11/17/2022 8:20 AM EDTAddended by: RAFAELA CASTANON on: 11/19/2022 07:00 AM Modules accepted: Orders [id number] Evaluation + Plan note* Assessment & Plan Note - IRISH Mann CNP - 10/16/2022 4:12 PM EDTAssociated Problem(s): Nasal congestion We will obtain allergy testing. Follow-up as directed. Continue Flonase [id number] Evaluation + Plan note* Assessment & Plan Note - IRISH Mann CNP - 10/16/2022 4:12 PM EDTAssociated Problem(s): Viral URI with cough Mild symptoms. Reports improvement continue conservative therapy at home. [facility] [id number] Miscellaneous Notes* Assessment & Plan Note - IRISH Mann CNP - 10/16/2022 4:12 PM EDTAssociated Problem(s): Nasal congestion We will obtain allergy testing. Follow-up as directed. Continue Flonase * Assessment & Plan Note - IRISH Mann CNP - 10/16/2022 4:12 PM EDTAssociated Problem(s): Viral URI with cough Mild symptoms. Reports improvement continue conservative therapy at home. * Assessment & Plan Note - IRISH aMnn CNP - 10/16/2022 4:11 PM EDTAssociated Problem(s): Seborrheic dermatitis of scalp Consistent with seborrheic dermatitis of the scalp. Start ketoconazole treatment follow-up for symptoms worsening or failure to improve documented in this [facility]03-30-2023 Evaluation + Plan note* Assessment & Plan Note - IRISH Mann CNP - 10/16/2022 4:11 PM EDTAssociated Problem(s): Seborrheic dermatitis of scalp Consistent with seborrheic dermatitis of the scalp. Start ketoconazole treatment follow-up for symptoms worsening or failure to improve [facility] [id number] History of Present illness Narrative* Moni Angel - 10/16/2022 11:00 AM EDT Utility System Repairer for Intimate and Non Intimate Exam Utility System Repairer was declined Utility System Repairer: na * IRISH Mann CNP - 10/16/2022 11:00 AM EDT Images from the original note were not included. 10/16/2022 Yue Ibrahim (: 1960) is a 62 y.o. female , Established patient, here for evaluation ofthe following chief complaint(s): Nasal Congestion and Headache ASSESSMENT/PLAN: 1. Viral URI with cough Assessment & Plan: Mild symptoms. Reports improvement continue conservative therapy at home. 2. Nasal congestion Assessment & Plan: We will obtain allergy testing. Follow-up as directed. Continue Flonase Orders: - ALLERGEN, REGION 5 RESPIRATORY PANEL 3. Seborrheic dermatitis of scalp Assessment & Plan: Consistent with seborrheic dermatitis of the scalp. Start ketoconazole treatment follow-up for symptoms worsening or failure to improve Orders: - ketoconazole (NIZOral) 2 % shampoo; Shampoo daily, leave on for 5-10 minutes, then rinse., Normal Follow up if symptoms worsen or fail to improve, for as directed pending test results. SUBJECTIVE/OBJECTIVE: HPI - Yue Ibrahim (: 1960) is a 62 y.o. female , Established patient, here for the evaluation of the following chief complaint(s): Nasal Congestion and Headache Started last week nasal congestion, headache, started with sore throat and drainage. Is feeling better today than yesterday. No fever or chills. No shortness of breath or chest pain Covid tests negative. Has been taking pzuf-qbj-cuurjru cough and cold medicine with mild relief. Patient does report concerns for seasonal allergies and would like allergy testing completed. Reports frequent sneezing and sinus congestion periodically with seasonal changes. Skin concern-patient reports scaly itchy patch behind her left ear has been there for several weekshas tried alrd-scy-febsiqq shampoos without much relief. Prior to Admission medications Medication Sig Start Date End Date Taking? Authorizing Provider ascorbic acid (Vitamin C) 250 MG tablet Take 250 mg by mouth in the morning. Yes Historical Provider, ASPIRIN 81 PO Take 81 mg by mouth. 02/20/12 Yes Historical Provider, atorvastatin (Lipitor) 40 MG tablet Take 1 tablet (40 mg) by mouth daily. 10/13/22 Yes Romulo Cross MD Blood Glucose Calibration (OneTouch Verio) High solution 07/09/21 Yes Historical Provider, clopidogrel (Plavix) 75 MG tablet Take 1 tablet (75 mg) by mouth daily. 06/23/22 Yes Romulo Latif MD coenzyme Q-10 10 MG capsule coenzyme Q10 Ubidecarenone Active 100 MG DAILY August 02, 2018 1:02pm 08-02-2018 [facility] ([id number]) 08/02/18 Yes Historical Provider, famotidine (Pepcid) 40 MG tablet Take 1 tablet (40 mg) by mouth every evening. 10/13/22 Yes Romulo Latif MD fluticasone (Flonase) 50 MCG/ACT nasal spray USE 2 SPRAY(S) IN EACH NOSTRIL ONCE DAILY 12/19/21 Yes Historical Provider, levothyroxine (Synthroid, Levoxyl) 50 MCG tablet Take 1 tablet by mouth once daily 06/16/22 Yes Rafaela Castanon, [employer] losartan (Cozaar) 50 MG tablet Take 1 tablet (50 mg) by mouth daily. 06/23/22 Yes Romulo Latif MD metFORMIN XR (Glucophage-XR) 500 MG 24 hr tablet Take 2 tablets (1,000 mg) by mouth in the morning and 2 tablets (1,000 mg) in the evening. Take with meals. 09/23/22 Yes Romulo Latif MD metoprolol tartrate (Lopressor) 100 MG tablet Take 1 tablet by mouth in the morning and 1 tablet before bedtime. 05/12/22 Yes Historical Provider, nitroglycerin (Nitrostat) 0.4 MG SL tablet every 5 minutes as needed for chest pain up to 3 doses total 11/08/18 Yes Historical Provider, MD Browning [id number] UNIT/GM powder APPLY POWDER TOPICALLY TO AFFECTED AREA THREE TIMES DAILY 03/06/22 Yes Historical Provider, MD Peñaloza Verio test strip USE STRIP TO CHECK GLUCOSE THREE TIMES DAILY 09/23/22 Yes Romulo Ltaif MD Pharmacist Choice Lancets [facility] [place] 07/09/21 Yes Historical Provider, zinc 100 MG tablet Take by mouth. Yes Historical Provider, tiZANidine (Zanaflex) 4 MG tablet Take 1 tablet (4 mg) by mouth every 6 hours as needed for muscle spasms for up to 10 days. 07/18/22 07/28/22 Marie Fleming [employer] atorvastatin (Lipitor) 40 MG tablet Take 40 mg by mouth in the morning. 04/15/22 10/13/22 Historical Provider, famotidine (Pepcid) 40 MG tablet Take 40 mg by mouth every evening. 04/15/22 10/13/22 Historical Provider, Health Maintenance Due Topic Date Due Echocardiogram Never done Diabetes: Retinopathy Screening Never done Diabetes: Hemoglobin A1C 09/09/2022 Colorectal Cancer Screening 10/11/2023 Review of Systems Constitutional: Negative. Negative for chills and fever. HENT: Positive for congestion, postnasal drip, rhinorrhea and sore throat. Respiratory: Positive for cough (occasional). Negative for shortness of breath. Cardiovascular: Negative for chest pain. Genitourinary: Negative for difficulty urinating. Neurological: Positive for headaches. Negative for dizziness and light-headedness. Vitals: 10/16/22 1055 BP: 102/60 Pulse: 77 Resp: 18 SpO2: 99% Weight: 241 lb (109 kg) Physical Exam Constitutional: General: She is not in acute distress. Appearance: Normal appearance. She is obese. She is not ill-appearing. HENT: Head: Normocephalic and atraumatic. Right Ear: Tympanic membrane normal. Left Ear: Tympanic membrane normal. Nose: Congestion and rhinorrhea present. Right Turbinates: Swollen. Left Turbinates: Swollen. Mouth/Throat: Mouth: Mucous membranes are moist. Pharynx: Oropharynx is clear. No oropharyngeal exudate or posterior oropharyngeal erythema. Eyes: Conjunctiva/sclera: Conjunctivae normal. Cardiovascular: Rate and Rhythm: Normal rate and regular rhythm. Pulses: Normal pulses. Heart sounds: Normal heart sounds. Pulmonary: Effort: Pulmonary effort is normal. Breath sounds: Normal breath sounds. Lymphadenopathy: Cervical: No cervical adenopathy. Skin: General: Skin is warm and dry. Neurological: Mental Status: She is alert and oriented to person, place, and time. Psychiatric: Mood and Affect: Mood normal. Behavior: Behavior normal. An electronic signature was used to authenticate this note. IRISH Mann CNP 10/16/2022 11:09 AM documented in this [facility]SSamar[facility] [id number] Telephone encounter Note* Telephone Encounter - Wali De La Fuente RN - 10/15/2022 1:27 PM EDT S: pt calling [facility] d/t nasal congestion B: started around 10/10/22. Spoke to nurse triage 10/13/22 A: pt feels congestion is worsening since last speaking to nurse. Wasn't able to sleep last night. Having pain around nasal cavity when wearing glasses. Right side throat sore. Using nasal spray. Denies fever or ear pain. Had 2 negative covid tests. R: appt made tomorrow with Yu Fleming. Insurance verified. Pt verbalized understanding Reason for Disposition Patient wants to be seen Protocols used: Sinus Pain or [id number] [facility] [id number] Miscellaneous Notes* Telephone Encounter - Wali De La Fuente RN - 10/15/2022 1:27 PM EDT S: pt calling [facility] d/t nasal congestion B: started around 10/10/22. Spoke to nurse triage 10/13/22 A: pt feels congestion is worsening since last speaking to nurse. Wasn't able to sleep last night. Having pain around nasal cavity when wearing glasses. Right side throat sore. Using nasal spray. Denies fever or ear pain. Had 2 negative covid tests. R: appt made tomorrow with Yu Fleming. Insurance verified. Pt verbalized understanding Reason for Disposition Patient wants to be seen Protocols used: Sinus Pain or [id number] documented in this encounterSSamaritan North Health [id number] Telephone encounter Note* Telephone Encounter - Varsha Conde RN - 10/02/2022 1:01 PM EDT S: Patient spoke with [facility] nurse regarding COVID 19 concern B: Onset of symptoms/concern: yesterday A: She has all of her COVID vaccinations including booster. Her grandson was sick and he tested positive for COVID this morning. She was not exposed to him directly, but she was around his mother andsister. The pt has no symptoms currently. R: Pt does not meet exposure criteria. I reviewed home care advice extensively with patient. She will call back if she develops symptoms or tests positive. She is understanding and has no further questions. Reason for Disposition [1] Does not meet COVID-19 EXPOSURE criteria BUT [2] caller still concerned about COVID-19 EXPOSURE Protocols used: Coronavirus (COVID-19) [id number] [facility] [id number] Miscellaneous Notes* Telephone Encounter - Varsha Conde RN - 10/02/2022 1:01 PM EDT S: Patient spoke with [facility] nurse regarding COVID 19 concern B: Onset of symptoms/concern: yesterday A: She has all of her COVID vaccinations including booster. Her grandson was sick and he tested positive for COVID this morning. She was not exposed to him directly, but she was around his mother andsister. The pt has no symptoms currently. R: Pt does not meet exposure criteria. I reviewed home care advice extensively with patient. She will call back if she develops symptoms or tests positive. She is understanding and has no further questions. Reason for Disposition [1] Does not meet COVID-19 EXPOSURE criteria BUT [2] caller still concerned about COVID-19 EXPOSURE Protocols used: Coronavirus (COVID-19) [id number] documented in this encounterSSamaritan North Health [id number] Telephone encounter Note* Telephone Encounter - Pam Ramirez - 09/01/2022 4:12 PM EST Patient notified will call back tomorrow to schedule an appointment. [facility] [id number] Miscellaneous Notes* Telephone Encounter - Pam Ramirez - 09/01/2022 4:12 PM EST Patient notified will call back tomorrow to schedule an appointment. * Telephone Encounter - IRISH Ramirez CNP - 09/01/2022 4:01 PM EST I do not see where we have ever treated Yue for depression. This is not even a formal diagnosis listed on her problem list. I do not feel this would be appropriate. If she is struggling with feelings of depression I recommend an office visit where we can discuss this further and I would recommend counseling and/or medication management if she is feeling depressed. * Telephone Encounter - Romulo Latif MD - 09/01/2022 3:58 PM EST Rafaela I am going to let you address this I have never seen this patient. * Telephone Encounter - Ananya Craig - 09/01/2022 3:12 PM EST Name of caller: Yue Ibrahim Contact phone number: [phone] Relationship to Patient: patient Provider: Dr. Latif Practice: [facility] Chief Complaint/Reason for Call: Pt stated her apartment where she lives is asking for a $350 deposit for an animal and pt stated can she get a waiver stating that a cat is a paraoptometric for her to help with her depression. Pt hasn't adopted a cat yet, but would like to to help her with her depression. Pt stated she can pickle solution maker the letter in the office when this is done. Please advise. Thank you. Best time of day caller can be reached: Any Patient advised that office/PCP has 24-48 business hours to return their call: Yes documented in this encounterSSamaritan North Health [id number] Telephone encounter Note* Telephone Encounter - IRISH Ramirez CNP - 09/01/2022 4:01 PM EST I do not see where we have ever treated Yue for depression. This is not even a formal diagnosis listed on her problem list. I do not feel this would be appropriate. If she is struggling with feelings of depression I recommend an office visit where we can discuss this further and I would recommend counseling and/or medication management if she is feeling depressed. [facility] [id number] Telephone encounter Note* Telephone Encounter - Romulo Latif MD - 09/01/2022 3:58 PM EST Rafaela I am going to let you address this I have never seen this patient. [place] [id number] Telephone encounter Note* Telephone Encounter - Ananya Craig - 09/01/2022 3:12 PM EST Name of caller: Yue Ibrahim Contact phone number: [phone] Relationship to Patient: patient Provider: Dr. Latif Practice: [facility] Chief Complaint/Reason for Call: Pt stated her apartment where she lives is asking for a $350 deposit for an animal and pt stated can she get a waiver stating that a cat is a paraoptometric for her to help with her depression. Pt hasn't adopted a cat yet, but would like to to help her with her depression. Pt stated she can pickle solution maker the letter in the office when this is done. Please advise. Thank you. Best time of day caller can be reached: Any Patient advised that office/PCP has 24-48 business hours to return their call: Yes [id number] Telephone encounter Note* Telephone Encounter - IRISH Mann CNP - 07/18/2022 12:35 PM EST Noted, agree with disposition [id number] Miscellaneous Notes* Telephone Encounter - IRISH Mann CNP - 07/18/2022 12:35 PM EST Noted, agree with disposition * Telephone Encounter - Shayy Lucia RN - 07/18/2022 8:38 AM EST S: Patient spoke with [facility] nurse regarding neck pain and stiffness B: Onset of symptoms/concern 2 days A: Patient complaining of moderate neck pain with movement and neck stiffness, intermittent radiating pain to shoulders,, mild headache. Denies injury, fever, chest pain, difficulty breathing, numbness, tingling. R: OV scheduled for today with David Fleming. Patient understands care advice. No further needs at this time. Patient instructed to call back with new or worsening symptoms. Reason for Disposition MODERATE neck pain (e.g., interferes with normal activities like work or school) Protocols used: Neck Pain or [id number] documented in this [facility]12-30-2022 Telephone encounter Note* Telephone Encounter - Shayy Lucia RN - 07/18/2022 8:38 AM EST S: Patient spoke with [facility] nurse regarding neck pain and stiffness B: Onset of symptoms/concern 2 days A: Patient complaining of moderate neck pain with movement and neck stiffness, intermittent radiating pain to shoulders,, mild headache. Denies injury, fever, chest pain, difficulty breathing, numbness, tingling. R: OV scheduled for today with David Fleming. Patient understands care advice. No further needs at this time. Patient instructed to call back with new or worsening symptoms. Reason for Disposition MODERATE neck pain (e.g., interferes with normal activities like work or school) Protocols used: Neck Pain or [id number] [facility]Evaluation note* Diagnosis Onset Date Resolution Status SALMERON (dyspnea on exertion) ac stebbins Atherosclerotic heart diseas e of [place] coronary artery without angina pectoris chronic Essential hypertension chron ic Mixed hyperlipidemia chronic Stented coronary artery October 15, 2018 chronic Supraventricular tachycardia chronic History of cardiac radiofrequency ablation March, resolved [facility] Work Phone: Evaluation note* Diagnosis Viral URI with cough- Primary Nasal congestion Other diseases of nasal cavity and sinuses Seborrheic dermatitis of scalp Other seborrheic dermatitis documented in this encounter [facility]Evaluation note* Diagnosis Medicare annual wellness visit, subsequent- Primary Diabetes mellitus type 2 in obese ([facility]) ([facility]) Type II or unspecified type diabetes mellitus without mention of complication, not stated as uncontrolled Encounter for diabetic foot exam ([facility]) Congestive heart failure, unspecified HF chronicity, unspecified heart failure type ([facility]) Cardiomyopathy, unspecified type ([facility]) Class 3 severe obesity due to excess calories with serious comorbidity and body mass index (BMI) of 40.0 to 44.9 in adult ([facility]) Hyperlipidemia, unspecified hyperlipidemia type Sleep apnea, unspecified type Insomnia, unspecified type Gastroesophageal reflux disease, unspecified whether esophagitis present Osteoarthritis, unspecified osteoarthritis type, unspecified site Hypothyroidism, unspecified type Tinnitus of both ears Unspecified tinnitus documented in this encounter [facility]Evaluation note* Diagnosis Hypothyroidism, unspecified type- Primary documented in this encounter [facility]Evaluation note* Diagnosis Medicare annual wellness visit, subsequent- Primary Diabetes mellitus type 2 in obese ([facility]) ([facility]) Type II or unspecified type diabetes mellitus without mention of complication, not stated as uncontrolled Encounter for diabetic foot exam (HCC) Congestive heart failure, unspecified HF chronicity, unspecified heart failure type (HCC) Cardiomyopathy, unspecified type ([facility]) Class 3 severe obesity due to excess calories with serious comorbidity and body mass index (BMI) of 40.0 to 44.9 in adult ([facility]) Hyperlipidemia, unspecified hyperlipidemia type Sleep apnea, unspecified type Insomnia, unspecified type Gastroesophageal reflux disease, unspecified whether esophagitis present Osteoarthritis, unspecified osteoarthritis type, unspecified site Hypothyroidism, unspecified type Tinnitus of both ears Unspecified tinnitus [facility]* Diagnosis Diabetes mellitus type 2 in obese ([facility]) ([facility]) Type II or unspecified type diabetes mellitus without mention of complication, not stated as uncontrolled [facility]* Diagnosis Diabetes mellitus type 2 in obese ([facility]) ([facility])- Primary Type II or unspecified type diabetes mellitus without mention of complication, not stated as uncontrolled Class 3 severe obesity due to excess calories with serious comorbidity and body mass index (BMI) of 40.0 to 44.9 in adult ([facility]) Congestive heart failure, unspecified HF chronicity, unspecified heart failure type (HCC) Cardiomyopathy, unspecified type ([facility]) Primary hypertension Unspecified essential hypertension Hyperlipidemia, unspecified hyperlipidemia type Need for Tdap vaccination Need for prophylactic vaccination with combined [id number] (DTP) vaccine Need for shingles vaccine Need for prophylactic vaccination and inoculation against varicella Screening mammogram for breast cancer Colon cancer screening Special screening for malignant neoplasms, colon documented in this encounter [facility]* Diagnosis Onset Date Resolution Status SALMERON (dyspnea on exertion) ac stebbins Atherosclerotic heart diseas e of [place] coronary artery without angina pectoris chronic Essential hypertension chron ic Mixed hyperlipidemia chronic Stented coronary artery October 15, 2018 chronic Supraventricular tachycardia chronic [facility] Work Phone: Evaluation note* Diagnosis Gastroesophageal reflux disease, unspecified whether esophagitis present documented in this encounter 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 shukri Diabetes mellitus chronic Dyslipidemia chronic Essential hypertension chron ic Stented coronary artery October 15, 2018 chronic History of PSVT (paroxysmal supraventricular tachycardia) resolved [facility] Work Phone: Evaluation note* Diagnosis Congestive heart failure, unspecified HF chronicity, unspecified heart failure type (HCC) Cardiomyopathy, unspecified type (HCC) Hyperlipidemia, unspecified hyperlipidemia type Diabetes mellitus type 2 in obese (CMS/HCC) (HCC) Type II or unspecified type diabetes mellitus without mention of complication, not stated as uncontrolled [facility] Diagnosis Diabetes mellitus type 2 in obese (CMS/HCC) (HCC) Type II or unspecified type diabetes mellitus without mention of complication, not stated as uncontrolled [facility]* Diagnosis Diabetes mellitus type 2 in obese (CMS/HCC) (HCC) Type II or unspecified type diabetes mellitus without mention of complication, not stated as uncontrolled [facility]* Diagnosis Hypothyroidism, unspecified type [facility]* Diagnosis Diabetes mellitus type 2 in obese (CMS/HCC) (HCC)- Primary Type II or unspecified type diabetes mellitus without mention of complication, not stated as uncontrolled Class 3 severe obesity due to excess calories with serious comorbidity and body mass index (BMI) of 40.0 to 44.9 in adult (HCC) Congestive heart failure, unspecified HF chronicity, unspecified heart failure type (HCC) Cardiomyopathy, unspecified type (HCC) Atherosclerosis of coronary artery of [place] heart without angina pectoris, unspecified vessel or lesion type Primary hypertension Unspecified essential hypertension Hyperlipidemia, unspecified hyperlipidemia type Seborrheic dermatitis of scalp Other seborrheic dermatitis [facility]* Diagnosis Diabetes mellitus type 2 in obese (CMS/HCC) (HCC) Type II or unspecified type diabetes mellitus without mention of complication, not stated as uncontrolled [facility]* Diagnosis Diabetes mellitus type 2 in obese (CMS/HCC) (HCC) Type II or unspecified type diabetes mellitus without mention of complication, not stated as uncontrolled [facility]* Diagnosis Diabetes mellitus type 2 in obese (CMS/HCC) (HCC) (HCC) Type II or unspecified type diabetes mellitus without mention of complication, not stated as uncontrolled [facility]* Diagnosis Dependent edema- Primary Edema Neuropathy of both feet Bilateral bunions [facility]* Diagnosis Diabetes mellitus type 2 in obese (CMS/HCC) (HCC) (HCC)- Primary Type II or unspecified type diabetes mellitus without mention of complication, not stated as uncontrolled Class 3 severe obesity due to excess calories with serious comorbidity and body mass index (BMI) of 40.0 to 44.9 in adult (HCC) Congestive heart failure, unspecified HF chronicity, unspecified heart failure type (HCC) Cardiomyopathy, unspecified type (HCC) Atherosclerosis of coronary artery of [place] heart without angina pectoris, unspecified vessel or lesion type Hyperlipidemia, unspecified hyperlipidemia type Primary hypertension Unspecified essential hypertension Neuropathy of both feet Need for Tdap vaccination Need for prophylactic vaccination with combined vbxjpmlecu-qtwvoho-oasohnpwl (DTP) vaccine Need for shingles vaccine Need for prophylactic vaccination and inoculation against varicella Screening for colon cancer Special screening for malignant neoplasms, colon documented in this [facility]* Diagnosis Diabetes mellitus type 2 in obese (CMS/HCC) ([facility]) (HCC)- Primary Type II or unspecified type diabetes mellitus without mention of complication, not stated as uncontrolled Congestive heart failure, unspecified HF chronicity, unspecified heart failure type (HCC) Atherosclerosis of coronary artery of [place] heart without angina pectoris, unspecified vessel or lesion type [facility]* Diagnosis Congestive heart failure, unspecified HF chronicity, unspecified heart failure type (HCC) Cardiomyopathy, unspecified type ([facility]) Diabetes mellitus type 2 in obese ([facility]) [facility]* Diagnosis Neuropathy of both feet Hyperlipidemia, unspecified hyperlipidemia type [facility]* Diagnosis Hypothyroidism, unspecified type [facility]* Diagnosis Diabetes mellitus type 2 in obese ([facility])- Primary Medication side effects Unspecified adverse effect of unspecified drug, medicinal and biological substance Vaginal yeast infection Candidiasis of vulva and vagina [facility]* Diagnosis Medicare annual wellness visit, subsequent- Primary Diabetes mellitus type 2 in obese ([facility]) Encounter for diabetic foot exam ([facility]) Neuropathy of both feet Class 3 severe obesity due to excess calories with serious comorbidity and body mass index (BMI) of 40.0 to 44.9 in adult (HCC) Atherosclerosis of coronary artery of [place] heart without angina pectoris, unspecified vessel or lesion type Cardiomyopathy, unspecified type (HCC) Congestive heart failure, unspecified HF chronicity, unspecified heart failure type (HCC) Presence of stent in coronary artery Primary hypertension Unspecified essential hypertension Hyperlipidemia, unspecified hyperlipidemia type Hypothyroidism, unspecified type Gastroesophageal reflux disease, unspecified whether esophagitis present Sleep apnea, unspecified type Osteoarthritis, unspecified osteoarthritis type, unspecified site Arthritis of right hip Insomnia, unspecified type Screening for deficiency anemia Screening for other and unspecified deficiency anemia [facility]* Diagnosis Viral URI with cough- Primary Nasal congestion Other diseases of nasal cavity and sinuses Seborrheic dermatitis of scalp Other seborrheic dermatitis Hypothyroidism, unspecified type [facility] Diagnosis Viral URI with cough- Primary Nasal congestion Other diseases of nasal cavity and sinuses Seborrheic dermatitis of scalp Other seborrheic dermatitis Diabetes mellitus type 2 in obese ([facility])- Primary Class 3 severe obesity due to excess calories with serious comorbidity and body mass index (BMI) of 40.0 to 44.9 in adult ([facility]) Congestive heart failure, unspecified HF chronicity, unspecified heart failure type ([facility]) Cardiomyopathy, unspecified type ([facility]) Atherosclerosis of coronary artery of [place] heart without angina pectoris, unspecified vessel or lesion type Neuropathy of both feet Hyperlipidemia, unspecified hyperlipidemia type Primary hypertension Unspecified essential hypertension Hypothyroidism, unspecified type Gastroesophageal reflux disease, unspecified whether esophagitis present Sleep apnea, unspecified type Osteoarthritis, unspecified osteoarthritis type, unspecified site Arthritis of right hip Insomnia, unspecified type Cyst of joint of hand, right Screening mammogram for breast cancer [facility]* Diagnosis Dupuytren's disease of palm- Primary Contracture of palmar fascia [facility] Diagnosis Viral URI with cough- Primary Nasal congestion Other diseases of nasal cavity and sinuses Seborrheic dermatitis of scalp Other seborrheic dermatitis Congestive heart failure, unspecified HF chronicity, unspecified heart failure type ([facility]) Cardiomyopathy, unspecified type ([facility]) Hyperlipidemia, unspecified hyperlipidemia type [facility]* Diagnosis Viral URI with cough- Primary Nasal congestion Other diseases of nasal cavity and sinuses Seborrheic dermatitis of scalp Other seborrheic dermatitis Type 2 diabetes mellitus with obesity ([facility]/HCC) (HCC) ([facility]) [facility]* Diagnosis Viral URI with cough- Primary Nasal congestion Other diseases of nasal cavity and sinuses Seborrheic dermatitis of scalp Other seborrheic dermatitis Neuropathy of both feet [facility]* Diagnosis Viral URI with cough- Primary Nasal congestion Other diseases of nasal cavity and sinuses Seborrheic dermatitis of scalp Other seborrheic dermatitis Neuropathy of both feet [facility]* Diagnosis Viral URI with cough- Primary Nasal congestion Other diseases of nasal cavity and sinuses Seborrheic dermatitis of scalp Other seborrheic dermatitis Routine general medical examination at health care facility- Primary Routine general medical examination at a health care facility Diabetes mellitus type 2 in obese ([facility]) Encounter for diabetic foot exam ([facility]) Congestive heart failure, unspecified HF chronicity, unspecified heart failure type ([facility]) Cardiomyopathy, unspecified type ([facility]) Atherosclerosis of coronary artery of [place] heart without angina pectoris, unspecified vessel or lesion type Presence of stent in coronary artery History of ST elevation myocardial infarction (STEMI) Neuropathy of both feet Class 3 severe obesity due to excess calories with serious comorbidity and body mass index (BMI) of 40.0 to 44.9 in adult Primary hypertension Unspecified essential hypertension Hyperlipidemia, unspecified hyperlipidemia type Hypothyroidism, unspecified type Gastroesophageal reflux disease, unspecified whether esophagitis present Sleep apnea, unspecified type Osteoarthritis of multiple joints, unspecified osteoarthritis type Insomnia, unspecified type Screening mammogram for breast cancer [facility] Diagnosis Viral URI with cough- Primary Nasal congestion Other diseases of nasal cavity and sinuses Seborrheic dermatitis of scalp Other seborrheic dermatitis Routine general medical examination at health care facility- Primary Routine general medical examination at a health care facility Diabetes mellitus type 2 in obese ([facility]) Encounter for diabetic foot exam ([facility]) Congestive heart failure, unspecified HF chronicity, unspecified heart failure type (HCC) Cardiomyopathy, unspecified type ([facility]) Atherosclerosis of coronary artery of [place] heart without angina pectoris, unspecified vessel or lesion type Presence of stent in coronary artery History of ST elevation myocardial infarction (STEMI) Neuropathy of both feet Class 3 severe obesity due to excess calories with serious comorbidity and body mass index (BMI) of 40.0 to 44.9 in adult Primary hypertension Unspecified essential hypertension Hyperlipidemia, unspecified hyperlipidemia type Hypothyroidism, unspecified type Gastroesophageal reflux disease, unspecified whether esophagitis present Sleep apnea, unspecified type Osteoarthritis of multiple joints, unspecified osteoarthritis type Insomnia, unspecified type Screening mammogram for breast cancer Type 2 diabetes mellitus with hyperglycemia, without long-term current use of insulin (HCC) documented in this encounter [facility]Evaluation note* Diagnosis Viral URI with cough- Primary Nasal congestion Other diseases of nasal cavity and sinuses Seborrheic dermatitis of scalp Other seborrheic dermatitis Routine general medical examination at health care facility- Primary Routine general medical examination at a health care facility Diabetes mellitus type 2 in obese (HCC) Encounter for diabetic foot exam ([facility]) Congestive heart failure, unspecified HF chronicity, unspecified heart failure type (HCC) Cardiomyopathy, unspecified type (HCC) Atherosclerosis of coronary artery of [place] heart without angina pectoris, unspecified vessel or lesion type Presence of stent in coronary artery History of ST elevation myocardial infarction (STEMI) Neuropathy of both feet Class 3 severe obesity due to excess calories with serious comorbidity and body mass index (BMI) of 40.0 to 44.9 in adult Primary hypertension Unspecified essential hypertension Hyperlipidemia, unspecified hyperlipidemia type Hypothyroidism, unspecified type Gastroesophageal reflux disease, unspecified whether esophagitis present Sleep apnea, unspecified type Osteoarthritis of multiple joints, unspecified osteoarthritis type Insomnia, unspecified type Screening mammogram for breast cancer Type 2 diabetes mellitus with hyperglycemia, without long-term current use of insulin (HCC) Insomnia, unspecified type [facility]: Hospital Discharge instructions Additional Instructions Her case was discussed with Dr. Sarabia. He is planning to schedule your heart cath as an outpatient. If you do not hear from the office by Thursday please call them to check on when this will be scheduled.[facility] Work Phone: Hospital Discharge instructionsAmbulatory Orders* Phase II, Outpatient Cardiac Rehab Location: None [facility] Work Phone: Instructions* Attachments The following attachments cannot be sent through Care Everywhere. * Viral Upper Respiratory Infection Discharge Instructions, Adult ([place]ian) * Seborrheic Dermatitis ([place]ian) documented in this [facility]Instructions* Attachments The following attachments cannot be sent through Care Everywhere. * Gabapentin, ADULT ([place]) documented in this [facility]Instructions* Attachments The following attachments cannot be sent through Care Everywhere. * Dulaglutide, ADULT ([place]) documented in this [facility]Instructions* Attachments The following attachments cannot be sent through Care Everywhere. * Preventing Falls in Older Adults ([place]) [facility] Consultation (Routine) - Pending Review Specialty Diagnoses / Procedures Referred By Luis Enrique palmer Referred To Contact Audiology Diagnoses Tinnitus of both ears Procedures [place] OFFICE/OUTPATIENT [facility] MDM 60-74 MINUTES Rafaela Castanon APRN - [place] [place] [address] Referral ID Status Reason Start Date Expiration Date Visits Requested Visits Authorized [id number] Pending Review Specialty Services Required 11/17/2022 11/17/2023 1 1 [facility] HealthRejulieta for referral (narrative)* Consultation (Routine) - Pending Review Specialty Diagnoses / Procedures Referred By Luis Enrique palmer Referred To Contact Gastroenterology Diagnoses Colon cancer screening Procedures [place] OFFICE/OUTPATIENT [facility] 60-74 MINUTES Rafaela Castanon APRN - LIC[employer]ED [employer] OFFICER ASSISTANT [address] [place] [address] Minh Montelongo E Carlotta [address] [id number] Referral ID Status Reason Start Date Expiration Date Visits Requested Visits Authorized [id number] Pending Review Specialty Services Required 03/18/2023 03/17/2024 1 1 [facility] [employer] TechnologiesReason for referral (narrative)No reason for referral information availableWMercy [facility] Work Phone: Summary Purpose Family History No Family History Records Found Relationship Condition Age at Onset Recorded Date/T nataliia grandmother Cerebrovascular accident (CVA) Unknown mother Coronary artery disease Unknown Atrial fibrillation Unknown Cardiac disease Unknown father Cardiac disease Unknown Hypertension Unknown Malignant neoplasm Unknown sister Fibromyalgia Unknown sister Myocardial infarction Unknown Diabetes mellitus Unknown Coronary artery disease Unknown brother Myocardial infarction Unknown brother Malignant neoplasm Unknown Asthma Unknown aunt Malignant neoplasm of colon Unknown uncle Malignant neoplasm of colon Unknown Advance Directives No Advanced Directives Records FoundDocuments on File Type Date Recorded 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 Advance Directives and Living Will Power of Correspondence School Teacher Advance Directive Response Recorded Date/ Time Advance Directives No August 16, 2019 10:15am Living Will No August 09 10:03am Power of Correspondence School Teacher No August 09, 2021 10:03am Advance Directive Response Recorded Date/ Time Advance Directives No August 16, 2019 10:15am Living Will No April 18, 2023 5:37pm Power of Correspondence School Teacher No March 5:37pm Advance Directive Response Recorded Date/ Time Advance Directives No May 04, 2023 8:38am Living Will No May 04 8:38am Power of Correspondence School Teacher No May 04, 2023 8:38am Advance Directive Response Recorded Date/ Time Advance Directives No May 04, 2023 8:38am Advance Directive Response Recorded Date/ Time Living Will No December 05, 2024 7 :49am Do you have a Healthcare Power of Correspondence School Teacher? No December 05, 2024 1:09pm Advance Directives No December 05 7:49am Assessments Diagnosis Chronic pain of right hip Chief Complaint and Reason for Visit Chief Complaint back pain 9 M FU CAD PTCA LEXISCAN CAD PTCA LEXISCAN Reason for Visit SALMERON (dyspnea on exer tion) Atherosclerotic heart disease of [place] coronary artery without angina pectoris Essential hypertension Mixed hyperlipidemia Stented coronary artery Supraventricular tachycardia History of cardiac radiofrequency ablation Chief Complaint sob, edema: last bertha t 10/2021 L.L. Chest pain, unspecified CP Reason for Visit SALMERON (dyspnea on exer tion) Atherosclerotic heart disease of [place] coronary artery without angina pectoris Essential hypertension Mixed hyperlipidemia Stented coronary artery Supraventricular tachycardia Chief Complaint sob, edema: last bertha t 10/2021 L.L. Chest pain, unspecified CP S/P WC 04/19 POSS HEART CATH Personal history of other diseases of the circulat CP, SOB, DECREASED EF Reason for Visit SALMERON (dyspnea on exer tion) Atherosclerotic heart disease of [place] coronary artery without angina pectoris Essential hypertension Mixed hyperlipidemia Stented coronary artery Supraventricular tachycardia SALMERON (dyspnea on exertion) Cardiomyopathy Coronary artery disease Diabetes mellitus Dyslipidemia Essential hypertension Stented coronary artery History of PSVT (paroxysmal supraventricular tachycardia) Chief Complaint Admit Date 7 M FU August 16, 2024 1 :10pm Abnormal result of other cardiovascular function s September 21, 2024 1:35pm Reason for Visit Admit Date Cardiomyopathy August 16, 2024 1 :10pm Coronary artery disease August 16 1:10pm Diabetes mellitus August 16, 2024 1 :10pm Dyslipidemia August 16, 2024 1 :10pm Essential hypertension August 16 1:10pm Obesity August 16, 2024 1 :10pm HUSSEIN (obstructive sleep apnea) August 162024 1:10pm Stented coronary artery August 16 1:10pm SALMERON (dyspnea on exertion) August 16, 2024 1:10pm History of PSVT (paroxysmal supraventric ular tachycardia) August 16, 2024 1:10pm Chief Complaint Admit Date 7 M FU August 16, 2024 1 :10pm Abnormal result of other cardiovascular function s September 21, 2024 1:35pm 3 M FU November 07, 2024 10: 37am Reason for Visit Admit Date Cardiomyopathy August 16, 2024 1 :10pm Coronary artery disease August 16 1:10pm Diabetes mellitus August 16, 2024 1 :10pm Dyslipidemia August 16, 2024 1 :10pm Essential hypertension August 16 1:10pm Obesity August 16, 2024 1 :10pm HUSSEIN (obstructive sleep apnea) August 162024 1:10pm Stented coronary artery August 16 1:10pm SALMERON (dyspnea on exertion) August 16, 2024 1:10pm History of PSVT (paroxysmal supraventric ular tachycardia) August 16, 2024 1:10pm Cardiomyopathy November 07, 2024 10: 37am Dyslipidemia November 07, 2024 10: 37am Essential hypertension November 07, 2024 10:37am HUSSEIN (obstructive sleep apnea) October 10:37am Stented coronary artery November 07, 2024 10:37am SALMERON (dyspnea on exertion) November 07 10:37am History of PSVT (paroxysmal supraventric ular tachycardia) November 07, 2024 10:37am Chief Complaint Admit Date 7 M FU August 16, 2024 1 :10pm Abnormal result of other cardiovascular function s September 21, 2024 1:35pm 3 M FU November 07, 2024 10: 37am E-ORDER November 29, 2024 10:16 am CHEST PAIN SOB December 05, 2024 12:38 pm Referral Order December 05, 2024 6:04p m Chief Complaint Admit Date Abnormal result of other cardiovascular function s September 21, 2024 1:35pm 3 M FU November 07, 2024 10: 37am E-ORDER November 29, 2024 10:16 am CHEST PAIN SOB December 05, 2024 12:38 pm Referral Order December 05, 2024 6:04p m S/P [facility] 12/05December 21, 2024 1:57p m Reason for Visit Admit Date Cardiomyopathy November 07, 2024 10: 37am Dyslipidemia November 07, 2024 10: 37am Essential hypertension November 07, 2024 10:37am HUSSEIN (obstructive sleep apnea) October 10:37am Stented coronary artery November 07, 2024 10:37am SALMERON (dyspnea on exertion) November 07 10:37am History of PSVT (paroxysmal supraventric ular tachycardia) November 07, 2024 10:37am Cardiomyopathy December 21, 2024 1:57p m Coronary artery disease December 21, 2024 1 :57pm Diabetes mellitus December 21, 2024 1:57p m Dyslipidemia December 21, 2024 1:57p m Essential hypertension December 21, 2024 1: 57pm Obesity December 21, 2024 1:57p m HUSSEIN (obstructive sleep apnea) December 21, 2024 1:57pm Stented coronary artery December 21, 2024 1 :57pm History of PSVT (paroxysmal supraventric ular tachycardia) December 21, 2024 1:57pm Additional Source Comments INFORMATION SOURCE (unrecogn ized section and content) DATE CREATED AUTHOR 01/13/2018 [facility] DATE CREATED AUTHOR AUTHOR'S ORGANIZ ATION 04/25/2022 [facility] DATE CREATED AUTHOR AUTHOR'S ORGANIZ ATION 04/06/2024 [facility] DATE CREATED AUTHOR AUTHOR'S ORGANIZ ATION 10/26/2024 [facility] DATE CREATED AUTHOR AUTHOR'S ORGANIZ ATION 02/28/2025 [facility] DATE CREATED AUTHOR AUTHOR'S ORGANIZ ATION 03/16/2025 [facility] Goals (unrecognized section and content) Goals may be documented in a n alternate sectionGoals may be documented in an alternate sectionGoals may be documented in an alternate sectionGoals may be documented in an alternate sectionGoals may be documented in an alternate sectionGoals may be documented in an alternate sectionGoals may be documented in an alternate section Reason for Visit (unrecogniz ed section and content) Reason Onset Date Comments Sinus Problem 10/15/2022 Reason Comments Nasal Congestion Headache Reason Comments Medicare Annual Wellness Visit Initial W ants to discuss trulicity Health Maintenance Hep C--declines, HIV --declines, Colon--discuss may be interested in Dr Montelongo, Dm eye--will be scheduling appointment, Tdap--declines, Hep B--declines, Shingles-- insurance will not cover she will have to pay 85 out of pocket Reason Onset Date Comments Med Refill 12/16/2022 Reason Onset Date Comments Results 11/18/2022 Reason Onset Date Comments Nausea 12/22/2022 Reason Comments Med Refill Reason Comments Diabetes Medication Check Health Maintenance Hep C--declines, HIV --declines, Colon--due in september [address] referral, Dm Eye--had recently at [facility] in [place], Mammo--needs new order, Dental--has not been is scheduled 03/25, Tdap--would need at pharmacy, Shingles--would need at pharmacy Reason Onset Date Comments Med Refill 04/20/2023 Reason Onset Date Comments Med Refill 05/11/2023 Reason Onset Date Comments early reqeust for test strips 06/01/2023 Reason Onset Date Comments Med Refill 06/09/2023 Multiple medicat ions Reason Comments Diabetes Follow-up 3 month Health Maintenance Pt refused- hiv/hep c screening, tdap vaccine, shingles vaccinePt agree to- rsv at pharmacyMammogram not scheduled yet- [facility] - will send for recordDental exam- sched 06/23/23 Reason Onset Date Comments Medication Problem 06/18/2023 Reason Onset Date Comments Med Refill 08/04/2023 Reason Onset Date Comments Foot Swelling 08/24/2023 Reason Comments Foot Swelling Bilateral foot pain and swelling ongoing Reason Comments Follow-up 3 MONTH DM Health Maintenance Dm eye- not done Dm dental- [facility] [place] Mammo- agreesPp:Tdap- agreesZoster- agreesHIV/Hep C screen- declines Blood Work Reason Onset Date Comments Results 10/06/2023 Release of Information 10/06/2023 Reason Onset Date Comments Medication Question 10/09/2023 Reason Onset Date Comments Immunizations 10/07/2023 Reason Onset Date Comments Diarrhea 10/27/2023 Reason Onset Date Comments Results 11/05/2023 Reason Onset Date Comments Med Refill 11/16/2023 Reason Onset Date Comments Med Refill 11/24/2023 Reason Onset Date Comments Vaginitis/Bacterial Vaginosis 11/30/2023 Reason Comments Follow-up Reason Comments Blood Work Medicare Annual Wellness Visit [facility] Health Maintenance [facility]- Has set up renita Montelongo at end of January. 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 Luis Antonio garcia(1-2 weeks ago) DM eye- is going to make appointment Dm dental- not done Blood Work Reason Onset Date Comments Pain 07/18/2022 Reason Onset Date Comments Letter for School/Work 09/01/2022 Letter fo r a paraoptometric Reason Onset Date Comments Epidemic Concern 10/02/2022 Reason Comments New Cyst right hand Reason Onset Date Comments Med Refill 10/27/2024 Reason Onset Date Comments Med Refill 11/15/2024 dulaglutide (Yoshi licity) 1.5 MG/0.5ML Reason Onset Date Comments Blood Sugar Problem 11/18/2024 Reason Onset Date Comments Diarrhea 01/24/2025 Reason Comments Medicare Annual Wellness Visit [facility] t Blood Work Health Maintenance Mamm- agreesDM Eye- done at [facility] Dm Teeth- refusedHep C- refused Reason Onset Date Comments Med Refill 01/23/2025 Reason Onset Date Comments Insomnia 03/10/2025 Care Teams (unrecognized sec tion and content) Senior Network Systems Engineer Relationship Specialty Start Date End Date Romulo Latif MD [address] [place] [id number] PCP - General 05/17/20 Senior Network Systems Engineer Relationship Specialty Start Date End Date Romulo Latif MD [address] [place] [id number] PCP - General 05/17/20 Senior Network Systems Engineer Relationship Specialty Start Date End Date Romulo Latif MD [address] [place] [id number] PCP - General 05/17/20 Senior Network Systems Engineer Relationship Specialty Start Date End Date Romulo Latif MD [address] [place] [id number] PCP - General 05/17/20 Senior Network Systems Engineer Relationship Specialty Start Date End Date Romulo Latif MD [address] [place] [id number] PCP - General 05/17/20 Senior Network Systems Engineer Relationship Specialty Start Date End Date Romulo Latif MD [address] [place] [id number] PCP - General 05/17/20 Senior Network Systems Engineer Relationship Specialty Start Date End Date Romulo Latif MD [address] [place], [place] [address] [address] PCP - General 05/17/20 Senior Network Systems Engineer Relationship Specialty Start Date End Date Romulo Latif MD [address] [place] [id number] PCP - General 05/17/20 Senior Network Systems Engineer Relationship Specialty Start Date End Date Romulo Latif MD [address] [place] [address] PCP - General 05/17/20 Senior Network Systems Engineer Relationship Specialty Start Date [place] [address] PCP - General 05/17/20 Team Status: Active Member Role Status Dates Rafaela Castanon FIELD NATURALIST, FIELD NATURALIST-C Family Provider Active Dr. Romulo Latif MD Primary Care Provider Active Team Status: Inactive Member Role Status Dates Dr. Romulo Latif MD Primary Care Provider, Referri ng Provider Active Selina Roberts PA, PA Attending Provider Active Team Status: Active Member Role Status Dates Dr. Romulo Latif MD Primary Care Provider Active Dr. Esdras Sarabia MD Attending Provider Active Team Status: Active Member Role Status Dates Dr. Romulo Latif MD Primary Care Provider Active Dr. Esdras Sarabia MD Attending Provider, Referring Pr ovider Active Team Status: Inactive Member Role Status Dates Dr. Romulo Latif MD Primary Care Provider Active Dr. Karen Palacios MD Emergency Provider Active Senior Network Systems Engineer Relationship Specialty Start Date [place] [address] PCP - General 05/17/20 Team Status: Inactive Member Role Status Dates Dr. Romulo Latif MD Primary Care Provider, Referri ng Provider Active Dr. Esdras Sarabia MD Attending Provider Active Team Status: Inactive Member Role Status Dates Dr. Romulo Latif MD Primary Care Provider Active Dr. Esdras Sarabia MD Attending Provider, Referring Pr ovider Active Team Status: Inactive Member Role Status Dates Dr. Romulo Latif MD Primary Care Provider Active Dr. Karen Palacios MD Attending Provider, Emergency Provider Active Senior Network Systems Engineer Relationship Specialty Start Date End Date Romulo Latif MD [address] [place] [address] PCP - General 05/17/20 Senior Network Systems Engineer Relationship Specialty Start Date End Date Romulo Latif MD [address] [place] [address] PCP - General 05/17/20 Senior Network Systems Engineer Relationship Specialty Start Date End Date Romulo Latif MD 25 [place] [address] PCP - General 05/17/20 Senior Network Systems Engineer Relationship Specialty Start Date End Date Romulo Latif MD [address] [place] [address] PCP - General 05/17/20 Senior Network Systems Engineer Relationship Specialty Start Date End Date Romulo Latif MD [address] [place] [address] PCP - General 05/17/20 Senior Network Systems Engineer Relationship Specialty Start Date End Date Romulo Latif MD [address] [place] [address] PCP - General 05/17/20 Senior Network Systems Engineer Relationship Specialty Start Date End Date Romulo Latif MD [address] [place] [address] PCP - General 05/17/20 Senior Network Systems Engineer Relationship Specialty Start Date End Date Romulo Latif MD [address] [facility] [place] [address] PCP - General 05/17/20 Senior Network Systems Engineer Relationship Specialty Start Date End Date Romulo Latif MD [address] [facility] [place] [address] PCP - General 05/17/20 Senior Network Systems Engineer Relationship Specialty Start Date End Date Romulo Latif MD [address] [facility] [place] [address] PCP - General 05/17/20 Senior Network Systems Engineer Relationship Specialty Start Date End Date Romulo Latif MD 25 [facility] [place] [address] PCP - General 05/17/20 Senior Network Systems Engineer Relationship Specialty Start Date End Date Romulo Latif MD [address] [facility] [place] [address] PCP - General 05/17/20 Senior Network Systems Engineer Relationship Specialty Start Date End Date Romulo Latif MD [address] [facility] [place] [address] PCP - General 05/17/20 Senior Network Systems Engineer Relationship Specialty Start Date End Date Romulo Latif MD 25 [facility] [place] [address] PCP - General 05/17/20 Senior Network Systems Engineer Relationship Specialty Start Date End Date Romulo Latif MD [address] [facility] [place] [address] PCP - General 05/17/20 Senior Network Systems Engineer Relationship Specialty Start Date End Date Romulo Latif MD 25 [place] [place] [address] PCP - General 05/17/20 Senior Network Systems Engineer Relationship Specialty Start Date End Date Romulo Latif MD 25 [facility] [place] [address] PCP - General 05/17/20 Senior Network Systems Engineer Relationship Specialty Start Date End Date Romulo Latif MD [address] [facility] [address] PCP - General 05/17/20 Senior Network Systems Engineer Relationship Specialty Start Date End Date Romulo Latif MD 25 [facility] [place] [address] PCP - General 05/17/20 Senior Network Systems Engineer Relationship Specialty Start Date End Date Romulo Latif MD 25 [place] [address] PCP - General 05/17/20 Senior Network Systems Engineer Relationship Specialty Start Date End Date Romulo Latif MD 25 [facility] [place] [address] PCP - General 05/17/20 Senior Network Systems Engineer Relationship Specialty Start Date End Date Romulo Latif MD 25 [facility] [place] [address] PCP - General 05/17/20 Senior Network Systems Engineer Relationship Specialty Start Date End Date Romulo Latif MD [address] [facility] [address] [place], [place] [id number] PCP - General 05/17/20 Team Status: Active Member Role Status Dates Rafaela Castanon FIELD NATURALIST, FIELD NATURALIST-C Primary Care Provider Active Team Status: Inactive Member Role Status Dates Rafaela Castanon FIELD NATURALIST, FIELD NATURALIST-C Primary Care Provider Active Start: August 16, 2024 End: August 16, 2024 Rafaela Castanon FIELD NATURALIST, FIELD NATURALIST-C Referring Provider Active S tart: August 16, 2024 End: August 16, 2024 Dr. Esdras Sarabia MD Attending Provider Active Start: August 16, 2024 End: August 16, 2024 Team Status: Inactive Member Role Status Dates Rafaela Castanon FIELD NATURALIST, FIELD NATURALIST-C Primary Care Provider Active Start: September 21, 2024 End: September 21, 2024 Dr. Esdras Sarabia MD Attending Provider Active Start: September 21, 2024 End: September 21, 2024 Dr. Esdras Sarabia MD Referring Provider Active Start: September 21, 2024 End: September 21, 2024 Senior Network Systems Engineer Relationship Specialty Start Date End Date Judith Penny MD PCP - General Family Medicine 03/09/17 Marleny Mckeon MD [address] [facility] [address] [place] [address] Specialty Loading Machine Adjuster Cardiology 03/09/17 James Miller MD [address] [facility] [address] [place], [place] [id number] Specialty Loading Machine Adjuster Cardiology 03/09/17 Rafaela Castanon CNP [address] [facility] [place] [address] Referring Family Medicine 06/28/24 Senior Network Systems Engineer Relationship Specialty Start Date End Date Romulo Latif MD [address] [place] [id number] PCP - General 05/17/20 Team Status: Inactive Member Role Status Dates Rafaela Castanon FIELD NATURALIST, FIELD NATURALIST-C Primary Care Provider Active Start: November 07, 2024 End: November 07, 2024 Rafaela Castanon FIELD NATURALIST, FIELD NATURALIST-C Referring Provider Active S tart: November 07, 2024 End: November 07, 2024 Pascale Roblero FIELD NATURALIST, FIELD NATURALIST-C Attending Provider Active Start: November 07, 2024 End: November 07, 2024 Team Status: Inactive Member Role Status Dates Rafaela Castanon FIELD NATURALIST, FIELD NATURALIST-C Primary Care Provider Active Start: November 07, 2024 End: November 07, 2024 Pascale Roblero FIELD NATURALIST, FIELD NATURALIST-C Attending Provider Active Start: November 07, 2024 End: November 07, 2024 Pascale Roblero FIELD NATURALIST, FIELD NATURALIST-C Referring Provider Active Start: November 07, 2024 End: November 07, 2024 Senior Network Systems Engineer Relationship Specialty Start Date End Date Romulo Latif MD [address] [place] [address] [facility] General 05/17/20 Senior Network Systems Engineer Relationship Specialty Start Date End Date Romulo Latif MD [address] [place] [address] [facility] General 05/17/20 Team Status: Active Member Role Status Dates Rafaela Castanon NP, FIELD NATURALIST-C Primary Care Provider Active Start: November 29, 2024 Dr. Esdras Sarabia MD Attending Provider Active Start: November 29, 2024 Dr. Esdras Sarabia MD Referring Provider Active Start: November 29, 2024 Team Status: Active Member Role Status Dates Rafaela Castanon NP, FIELD NATURALIST-C Primary Care Provider Active Start: December 05, 2024 Dr. Esdras Sarabia MD Admit Provider Active Star t: December 05, 2024 Dr. Esdras Sarabia MD Attending Provider Active Start: December 05, 2024 Dr. Esdras Sarabia MD Referring Provider Active Start: December 05, 2024 Team Status: Active Member Role Status Dates Rafaela Castanon FIELD NATURALIST, FIELD NATURALIST-C Primary Care Provider Active Start: December 05, 2024 Dr. Esdras Sarabia MD Attending Provider Active Start: December 05, 2024 Team Status: Inactive Member Role Status Dates Rafaela Castanon FIELD NATURALIST, FIELD NATURALIST-C Primary Care Provider Active Start: December 05, 2024 End: December 06, 2024 Dr. Esdras Sarabia MD Admit Provider Active Star t: December 05, 2024 End: December 06, 2024 Dr. Esdras Sarabia MD Attending Provider Active Start: December 05, 2024 End: December 06, 2024 Dr. Esdras Sarabia MD Referring Provider Active Start: December 05, 2024 End: December 06, 2024 Team Status: Inactive Member Role Status Dates Rafaela Castanon FIELD NATURALIST, FIELD NATURALIST-C Primary Care Provider Active Start: November 29, 2024 End: November 29, 2024 Dr. Esdras Sarabia MD Attending Provider Active Start: November 29, 2024 End: November 29, 2024 Dr. Esdras Sarabia MD Referring Provider Active Start: November 29, 2024 End: November 29, 2024 Team Status: Inactive Member Role Status Dates Rafaela Castanon FIELD NATURALIST, FIELD NATURALIST-C Primary Care Provider Active Start: December 21, 2024 End: December 21, 2024 Rafaela Castanon FIELD NATURALIST, FIELD NATURALIST-C Referring Provider Active S tart: December 21, 2024 End: December 21, 2024 Dr. Esdras Sarabia MD Attending Provider Active Start: December 21, 2024 End: December 21, 2024 Senior Network Systems Engineer Relationship Specialty Start Date End Date Romulo Latif MD [address] [place] [address] [facility] [place] [address] PCP - General 05/17/20 Senior Network Systems Engineer Relationship Specialty Start Date End Date Romulo Latif MD [address] [place] [address] [facility] [place] [address] PCP - General 05/17/20 Senior Network Systems Engineer Relationship Specialty Start Date End Date Romulo Latif MD [address] [facility] [place] [address] PCP - General 05/17/20 Senior Network Systems Engineer Relationship Specialty Start Date End Date Romulo Latif MD [address] [facility] [place] [address] PCP - General 05/17/20 Senior Network Systems Engineer Relationship Specialty Start Date End Date Romulo Latif MD [address] [facility] [place] [address] PCP - General 05/17/20 Source Comments (unrecognize d section and content) In the event this informatio n is protected by the Federal Confidentiality of Alcohol and Drug Abuse Patient Records regulations: The Federal rules restrict any use of the information to criminally investigate or prosecute any alcohol or drug abuse patient.[facility] FOR RECORDS PERTAINING TO PATIENTS WHO ARE OR HAVE BEEN ENROLLED IN A CHEMICAL DEPENDENCY/SUBSTANCEABUSE PROGRAM, SOME INFORMATION MAY BE OMITTED. This clinical summary was aggregated from multiple sources. Caution should be exercised in using it in the provision of clinical care. This summary normalizes information from multiple sources, and as a consequence, information in this document may materially change the coding, format and clinical context of patient data. In addition, data may be omitted in some cases. CLINICAL DECISIONS SHOULD BE BASED ON THE PRIMARY CLINICAL RECORDS. [facility]. provides no warranty or guarantee of the accuracy or completeness of information in this document.
--- NOTE | 2025-03-25 21:30 | RAD_ITS ---
PROCEDURE: FEMUR MIN 2 VIEWS 03/25/2025 REASON FOR EXAM: INJURY TECHNIQUE: Procedure Code: RADFEM Modality: DX Procedure: FEMUR MIN 2 VIEWS Laterality: Left COMPARISON: None FINDINGS: Osseous: No acute fracture or malalignment of the left femur is seen. Mild left hip joint space loss. Moderate femorotibial joint space loss with marginal osteophytes. If there are symptoms related to the hip joint or knee joint, dedicated joint views are advised. No bone lesion or periosteal reaction is seen. Soft tissues: Soft tissue injury is not reliably assessed by this technique. Vascular calcification seen within the left leg. RAD/Femur Min 2 Views IMPRESSION: No acute fracture. - Other findings and recommendations discussed above. Reading Location: [id number]
--- NOTE | 2025-03-25 21:30 | RAD_ITS ---
PROCEDURE: PELVIS 1 OR 2 VIEWS 03/25/2025 REASON FOR EXAM: FALL TECHNIQUE: Procedure Code: RADPEL Modality: DX Procedure: PELVIS 1 OR 2 VIEWS COMPARISON: None FINDINGS: Osseous: Pelvic congruency is maintained. The lower sacrum is obscured by bowel gas and fecal material. The sacrococcygeal junction is not identified. The acetabula are well formed without dysplasia. The femoral heads are centered to the acetabula. The pubic symphysis is anatomically aligned without widening. No periosteal reaction is seen. No radiographic evidence for acute displaced fracture is seen. Soft tissues: Calcifications overlying the pelvis may represent phleboliths. Genitourinary calcifications can not be excluded radiographically. Soft tissue injury or abnormality is not well assessed by this technique. RAD/Pelvis 1 or 2 Views IMPRESSION: No radiographic evidence of an acute osseous injury. - Findings and limitations discussed above. Reading Location: [id number]
[2025-03-25 22:44] VITALS: BP 127/81; PULSE 84; RESP 18; TEMP 36.9; O2SAT 98
== END 2025-03-25 22:45 | disposition home or self-care (01) ==
PROVIDERS: Emergency Provider Emergency Medicine; PCP Registered Nurse; Visit Provider Emergency Medicine
DX: S76.312A Strain of muscle, fascia and tendon of the posterior muscle group at thigh level, left thigh, initial encounter (principal); E11.9 Type 2 diabetes mellitus without complications; I25.10 Atherosclerotic heart disease of native coronary artery without angina pectoris; Z79.02 Long term (current) use of antithrombotics/antiplatelets; E78.2 Mixed hyperlipidemia; I10 Essential (primary) hypertension; K21.9 Gastro-esophageal reflux disease without esophagitis; Z79.84 Long term (current) use of oral hypoglycemic drugs; W01.0XXA Fall on same level from slipping, tripping and stumbling without subsequent striking against object, initial encounter
CPT/HCPCS: 72170; 73552; 99284

== ENCOUNTER 2025-04-29 12:38 | Inpatient (IN) | payer MEDICARE, SELFPAY ==
[2018-10-15 15:37] VITALS: BMI 43.4
[2025-04-29] VITALS (19 sets, daily range): BP systolic 78–135; BP diastolic 52–99; PULSE 18–143; RESP 15–96; TEMP 36.6–39.6; O2SAT 92–100; BMI 41.3; BMI 43.5
--- NOTE | 2025-04-29 13:07 | EKG12_ITS ---
Test Reason : GENERAL Blood Pressure : */* mmHG Vent. Rate : 136 BPM Atrial Rate : 136 BPM P-R Int : 144 ms QRS Dur : 88 ms QT Int : 286 ms P-R-T Axes : 27 -35 110 degrees QTcB Int : 430 ms Sinus tachycardia Left axis deviation Septal infarct , age undetermined T wave abnormality, consider lateral ischemia Abnormal ECG Confirmed by CARMEN SANDERSON, NICOLA ([id number]), photograph editor MAIKEL JEFF ([id number]) on 05/02/2025 7:40:03 AM Referred By: Confirmed By: NICOLA MORALES MD
--- NOTE | 2025-04-29 13:07 | EKG12_ITS ---
Test Reason : GENERAL Blood Pressure : */* mmHG Vent. Rate : 136 BPM Atrial Rate : 136 BPM P-R Int : 144 ms QRS Dur : 88 ms QT Int : 286 ms P-R-T Axes : 27 -35 110 degrees QTcB Int : 430 ms Sinus tachycardia Left axis deviation Septal infarct , age undetermined T wave abnormality, consider lateral ischemia Abnormal ECG Confirmed by CARMEN SANDERSON, NICOLA ([id number]), assignment desk editor MAIKEL JEFF ([id number]) on 05/02/2025 7:40:03 AM Referred By: Confirmed By: NICOLA MORALES MD
--- NOTE | 2025-04-29 13:09 | EX.ED.DYSGE1 ---
HPI History of Present Illness Chief Complaint: Allergic Reaction Narrative Narrative: Patient is a 65-year-old female presenting to the emergency department due to concern for an allergic reaction. Patient has a past medical history of CHF, palpitations, anemia, CAD, SVT, hypertension, obesity. Patient states that she has multiple medication allergies. States that on Thursday she started to have burning with urination. Reports that she was able to see her primary care doctor and provide a urine sample and they called her Bactrim last night. States that she took the antibiotic this morning for the first time around 10 AM. She states that about 2 hours later she developed shaking and shortness of breath. She also developed nausea with 1 episode of nonbilious, nonbloody vomiting. When EMS arrived reportedly she was cyanotic and wheezing. They placed her on nasal cannula and gave her IM epi. On arrival here she is denying chest pain, shortness of breath, wheezing, abdominal pain, nausea, vomiting, diarrhea. Denies any urticaria. Denies any tongue lip or throat swelling. [facility] Medical History Varicose vein of leg Screening for colorectal cancer Obesity Dyslipidemia History of PSVT (paroxysmal supraventricular tachycardia) Coronary artery disease Obesity, morbid, BMI 40.0-49.9 [place] (dyspnea on exertion) Varicose veins of right lower extremity Mixed hyperlipidemia Abnormal stress test Atherosclerotic heart disease of campo coronary artery without angina pectoris Diabetes mellitus Cardiomyopathy NSTEMI (non-ST elevated myocardial infarction) Chest pain, rule out acute myocardial infarction Obstructive sleep apnea Bronchitis Essential hypertension Chest pain Endometrial hyperplasia without atypia, simple Hypothyroidism HUSSEIN (obstructive sleep apnea) GERD (gastroesophageal reflux disease) HTN (hypertension) Supraventricular tachycardia Home Medications ?Medication ?Instructions ?Recorded ?Last Taken ?Type aspirin 81 mg chewable tablet 81 mg PO DAILY@0800 09/11/15 12/05/24 History coenzyme Q10 100 mg capsule 100 mg PO DAILY 08/02/18 10/14/18 08:00 History atorvastatin 40 mg tablet 40 mg PO QHS #90 tabs 11/02/19 Unknown Rx clopidogrel 75 mg tablet 75 mg PO DAILY #90 tabs 12/28/20 12/05/24 Rx levothyroxine 50 mcg tablet 50 mcg PO DAILY 10/21/21 12/05/24 History nitroglycerin 0.4 mg sublingual 0.4 mg sublingual Q5M PRN Chest 03/27/23 Unknown Rx tablet Pain #25 tabs omeprazole 20 mg capsule,delayed 20 mg PO DAILY 04/23/23 05/04/23 History release gabapentin 100 mg capsule 200 mg PO BID 01/04/24 12/05/24 History sacubitril 49 mg-valsartan 51 mg 1 tab PO BID #180 tabs 10/18/24 12/05/24 Rx tablet (Entresto) isosorbide mononitrate 30 mg 30 mg PO DAILY #30 tabs 12/05/24 Unknown Rx tablet,extended release 24 hr metoprolol succinate 200 mg 200 mg PO QDAY #90 tabs 12/21/24 Unknown Rx tablet,extended release 24 hr furosemide 40 mg tablet (Lasix) 40 mg PO DAILY PRN swelling #30 03/22/25 Unknown Rx tabs dulaglutide 4.5 mg/0.5 mL 4.5 mg subcut FR 03/25/25 Unknown History subcutaneous pen injector (Trulicity) metformin 500 mg tablet,extended 1,000 mg PO BID 03/25/25 Unknown History release 24 hr trazodone 100 mg tablet 100 mg PO QHS PRN PRN insomnia 03/25/25 Unknown History Allergy/AdvReac Type Severity Reaction Status Date / Time clindamycin Allergy Hives Verified 03/25/25 20:58 erythromycin base Allergy Hives Verified 03/25/25 20:58 nitrofurantoin Allergy Hives Verified 03/25/25 20:58 macrocrystalline (From Macrodantin) Sulfa (Sulfonamide Allergy Hives Verified 03/25/25 20:58 Antibiotics) sulfamethoxazole (From Allergy Hives Verified 03/25/25 20:58 Septra) trimethoprim (From Septra) Allergy Hives Verified 03/25/25 20:58 dapagliflozin (From Farxiga) AdvReac Intermediate Yeast Verified 03/25/25 20:58 Infection lisinopril AdvReac Intermediate Dry Verified 03/25/25 20:58 Hacking Cough Family History Grandmother CVA (cerebral vascular accident) Mother CAD (coronary artery disease) A-fib Heart disease Father Heart disease Hypertension Cancer Lung CA Sister Fibromyalgia Sister Myocardial infarction Diabetes CAD (coronary artery disease) Brother Myocardial infarction CAD (coronary artery disease) Diabetes Brother Cancer Asthma Aunt Colon cancer Uncle Colon cancer Diabetes Surgical History Stented coronary artery (12/05/24) History of left heart catheterization (05/04/23) History of hysterectomy History of cardiac radiofrequency ablation (~04/07/17) H/O prior ablation treatment (04/07/17) History of total right knee replacement (TKR) (~06/2014) History of Social History household members: spouse Smoking Status: Never smoker alcohol intake: never substance use type: does not use caffeine: Yes Type: carbonated beverages and coffee what type of physical activity do you participate in: none seatbelt use: always do you feel safe at home: Yes ROS ROS ED ROS Narrative see HPI EXAM Physical Exam Narrative Exam Narrative: Vital signs: Reviewed General: Alert and orientedx3. No acute distress HEENT: Head is normocephalic and atraumatic, sinuses nontender, pupils equal round and reactive. Nares are patent. Oropharynx and throat exams normal. No tongue, lip or oropharynx swelling noted. Neck: Supple without lymphadenopathy nontender Cardiovascular: Tachycardic rate and regular rhythm, no murmurs. No rubs or gallops. Normal S1 and S2 Respiratory: Clear to auscultation bilaterally. No wheezes, rales, rhonchi Abdominal: Soft and nontender. Normal bowel sounds. No guarding or rebound. Nonsurgical abdomen. No CVA tenderness to palpation. Extremities: No tenderness. No bruising. Normal range of motion. Normal sensation. Skin: No rash or redness. No urticaria. Neurological: Cranial nerves II through XII are grossly intact. Normal strength and sensation. Normal cerebellar function The rest of the physical exam is unremarkable Const Vital Signs: 04/29/25 12:40 04/29/25 13:44 04/29/25 14:56 Temperature 103.3 F H 100.2 F H Temperature Source Oral Oral Pulse Rate 143 H 127 H 121 H Respiratory Rate 25 H 22 H 22 H Blood Pressure 135/75 H 89/56 L 106/78 Blood Pressure Mean 95 67 87 Pulse Ox 95 94 98 Oxygen Delivery Method Room Air Room Air Room Air 04/29/25 15:00 04/29/25 16:00 Temperature Temperature Source Pulse Rate 116 H 106 H Respiratory Rate 18 Blood Pressure 99/79 78/58 L Blood Pressure Mean 85 64 Pulse Ox 95 94 Oxygen Delivery Method Room Air Room Air MDM MDM MDM Narrative Medical decision making narrative: Patient is a 65-year-old female presenting to the emergency department for possible allergic reaction. Patient was seen and examined. She is tachycardic, tachypneic and febrile on arrival. Tylenol given for fever. Fluid bolus given. Blood cultures x 2 obtained. Patient started on Rocephin for likely urinary source of infection. Differential includes but is not limited to: UTI, pyelonephritis, nephrolithiasis, sepsis, antibiotic reaction EKG shows sinus tachycardia at a rate of 136 with left axis deviation. No STEMI criteria met. There is some t wave abnormalities I anticipate from her chronic cardiac issues and being given epinephrine. CBC with a mild leukocytosis of 13.3 and a normal hemoglobin. CMP with anion gap of 18 and bicarb of 17. Glucose of 274. Normal kidney function. Normal liver function. Lactate significantly elevated at 6.3. Patient denies any salicylate use, any toxic alcohol or alcohol use. Given the hyperglycemia, anion gap and bicarb, VBG and beta hydroxybutyrate was added on and are negative for DKA. Urinalysis with evidence of urinary tract infection. Urine culture sent. Chest x-ray reviewed by myself. Mild cardiomegaly. No opacity, pneumothorax or widened mediastinum noted. CT abdomen pelvis shows mild fullness of the left ureter with periureteral and perinephric fat stranding may be related to recently passed stone, which is not visualized. Mild bladder wall thickening may suggest superimposed cystitis. Patient reevaluated, HR improving with fluids. Discussed patient with Dr. Barber, who asks that the patient get a full 30 cc/kg fluids before admission. Patient signed out to Dr. Tomlinson pending fluid resusitation and admission for urosepsis Clinical impression: Urosepsis History & Record Review Discussion w/independent historian: Patient Lab Data Attestation: I reviewed the patient's lab results. Labs: Laboratory Results - last 24 hr 04/29/25 13:38 WBC 13.3 H RBC 4.64 Hgb 12.5 Hct 39.5 MCV 85.1 MCH 26.9 L MCHC 31.6 L RDW Std Deviation 47.7 H RDW Coeff of Jhonatan 15.4 H Plt Count 267 MPV 9.7 Immature Gran % (Auto) 0.700 Neut % (Auto) 86.3 H Lymph % (Auto) 10.4 L [place] % (Auto) 2.1 Eos % (Auto) 0.1 Baso % (Auto) 0.4 Absolute Neuts (auto) 11.5 H Absolute Lymphs (auto) 1.38 Nucleated RBC % 0 PT 15.6 H INR 1.2 APTT 27.3 Sodium 138 Potassium 4.0 Chloride 103 Carbon Dioxide 17.3 L Anion Gap 18 H BUN 11 Creatinine 1.09 Estim Creat Clear Calc 62.21 Est GFR (MDRD) Non-Af 56 L BUN/Creatinine Ratio 10.2 Glucose 274 H Lactic Acid 6.3 H* Calcium 8.8 Total Bilirubin 1.03 AST 31 ALT 13 Alkaline Phosphatase 102 Total Protein 6.6 Albumin 3.7 Globulin 2.9 Albumin/Globulin Ratio 1.2 b-Hydroxybutyric mmol/L 0.2 Urine Color Yellow Urine Clarity Cloudy Urine pH 6.0 Ur Specific [place] 1.020 Urine Protein 500 H Urine Glucose (UA) 100 H Urine Ketones Negative Urine Occult Blood 250 H Urine Nitrite Negative Urine Bilirubin Negative Urine Urobilinogen Normal Ur Leukocyte Esterase 500 H Urine RBC 25-50 SEEN Urine WBC >100 SEEN Ur Squamous Epith Cells 0-5 SEEN Urine Bacteria 2+ Urine Mucus 0 SEEN ABG Data ABG results: ABG 04/29/25 14:43 Specimen Type ISMAEL Sample Site Not entered VBG pH 7.46 H VBG pO2 51 H VBG HCO3 23 VBG Total CO2 24 VBG O2 Sat (Calc) 88 H VBG Base Excess -1 POC Mix VBG pCO2 Pt Tmp 32.6 L O2 Delivery Device Not entered Radiography Diagnostic Testing: Clinical Impression(s) from Imaging Studies Abdomen/Pelvis CT 04/29/25 15:25 IMPRESSION: 1. Mild fullness of the left ureter with periureteral and perinephric fat stranding may be related to recently passed stone, which is not visualized. 2. Mild bladder wall thickening may suggest superimposed cystitis. [facility] Chest X-Ray 04/29/25 15:40 IMPRESSION: Borderline cardiomegaly Reading Location: [id number] Discharge Plan Triage Chief Complaint: Allergic Reaction ED Provider: Birgit Rob Dx/Rx/DC Orders Prescriptions: No Action coenzyme Q10 100 mg capsule 100 mg PO DAILY atorvastatin 40 mg tablet 40 mg PO QHS Qty: 90 3RF clopidogrel 75 mg tablet 75 mg PO DAILY Qty: 90 3RF levothyroxine 50 mcg tablet 50 mcg PO DAILY nitroglycerin 0.4 mg tablet, sublingual 0.4 mg SUBLINGUAL Q5M PRN (Reason: Chest Pain) Qty: 25 0RF omeprazole 20 mg capsule,delayed release(DR/EC) 20 mg PO DAILY gabapentin 100 mg capsule 200 mg PO BID metoprolol succinate 200 mg tablet extended release 24 hr 200 mg PO QDAY Qty: 90 3RF aspirin 81 MG tablet,chewable 81 mg PO DAILY@0800 isosorbide mononitrate 30 mg tablet extended release 24 hr 30 mg PO DAILY Qty: 30 6RF trazodone 100 mg tablet 100 mg PO QHS PRN PRN (Reason: insomnia) metformin 500 mg tablet extended release 24 hr 1,000 mg PO BID Trulicity 4.5 mg/0.5 mL pen injector 4.5 mg SUBCUT FR Patient Comments: [NO ORIGINAL SIG] sacubitril-valsartan [Entresto] 49-51 mg tablet 1 tab PO BID Qty: 180 3RF furosemide [Lasix] 40 mg tablet 40 mg PO DAILY PRN (Reason: swelling) Qty: 30 6RF Primary Care Provider: Liana Castanon NP Referrals: Liana Castanon NP, [employer] [Primary Care Provider, Medical] Print Language: Grenadian
[2025-04-29] MEDS: 0.9% Normal Saline (1000mL) 1,000 ML 999 ML IV (13:33)
[2025-04-29 13:56] LABS: Mucous, Urine 0 SEEN /hpf (<or=2+)
[2025-04-29 13:59] LABS: Hematocrit 39.5 % (37-47); Hemoglobin 12.5 g/dL (12.0-15.0); Immature Granulocytes Count 0.090 X10^3/uL (0.0-0.0); Mean Corp Hgb Conc 31.6 g/dL (32-36); Mean Corpuscular Volume 85.1 fL (81-99); Mean Platelet Vol. 9.7 fl (6.2-12.0); NRBC Flagged by Analyzer 0 % (0-5); Platelet Count 267 K/mm3 (150-450); RBC Distribution Width CV 15.4 % (11.6-14.6); RBC Distribution Width SD 47.7 fl (35.1-43.9); Red Blood Count 4.64 M/mm3 (4.2-5.4); White Blood Count 13.3 K/mm3 (4.4-11.0)
[2025-04-29 14:00] LABS: Color, Urine Yellow (Yellow); Glucose, Dipstick 100 mg/dl (Normal); Ketone-Dipstick Negative (Negative); Leukocyte Esterase-Dipstick 500 /ul (Negative); Nitrite-Dipstick Negative (Negative); Occult Blood-Urine 250 /ul (Negative); Protein-Dipstick 500 mg/dl (Negative); Specific Gravity, Urine 1.020 (1.002-1.030); Urine Bilirubin Dipstick Negative (Negative)
[2025-04-29] MEDS: Ceftriaxone 2 GM in 0.9% Normal Saline (50mL MB+) 50 ML IV (14:06)
[2025-04-29 14:10] LABS: Prothrombin Time (Protime)PT. 15.6 SECONDS (11.7-14.9)
[2025-04-29 14:11] LABS: Partial Thromboplast Time 27.3 Seconds (24.1-36.2)
[2025-04-29 14:12] LABS: Red Blood Cells-Urine 25-50 SEEN /hpf (0-5); Squamous Epithelial Cells - UA 0-5 SEEN /hpf (5-10)
[2025-04-29 14:24] LABS: AST(SGOT) 31 U/L (<=31); Alanine Aminotransfer ALT/SGPT 13 U/L (<=34); Albumin, Serum 3.7 g/dL (3.4-4.8); Alkaline Phosphatase 102 U/L (35-104); Anion Gap 18 (5-15); BUN 11 mg/dL (4-19); BUN/Creat Ratio 10.2 RATIO (10-20); Calcium,Total 8.8 mg/dL (7.6-11.0); Carbon Dioxide 17.3 mmol/L (21.0-32.0); Chloride 103 mmol/L (98-108); Estimated Creatinine Clearance 62.21 ml/min (50-250); Globulin 2.9 g/dL (2.2-4.2); Glucose 274 mg/dL (70-99); Potassium 4.0 mmol/L (3.3-5.1)
[2025-04-29 14:47] LABS: SITE Not entered; VBG BASE EXCESS -1 mmol/L (-1.0-3.5); VBG PO2 51 mmHg (25-40); VBG SO2 88 % (50-70); VBG TCO2 24 mmol/L (23-33)
[2025-04-29 14:59] LABS: BETA-HYDROXYBUTYRATE 0.2 mmol/L (0.0-0.3)
--- NOTE | 2025-04-29 15:25 | CT_ITS ---
PROCEDURE: ABDOMEN/PELVIS W IV CONT ONLY 04/29/2025 REASON FOR EXAM: LOOKING FOR PYELO OR STONE TECHNIQUE: Procedure Code: [id number] Modality: CT Procedure: ABDOMEN/PELVIS W IV CONT ONLY Coronal and Sagittal reconstruction series were provided. CONTRAST: 100 cc of Isovue 370 intravenous contrast. One or more dose reduction techniques were used (e.g., Automated exposure control, adjustment of the mA and/or kV according to patient size, use of iterative reconstruction technique. COMPARISON: None available. FINDINGS: Lung bases: Mild dependent atelectasis Liver: Normal size. No mass. Gallbladder: Surgically absent. No biliary ductal dilatation. Spleen: Normal size. Pancreas: Normal size without evidence of mass surrounding inflammation or ductal dilation. Adrenals: Unremarkable. Kidneys: Right kidney upper pole cyst measures 6.0 x 5.9 x 5.9 cm. Mild fullness of the left ureter with periureteral and perinephric fat stranding may be related to a recently passed stone, which is not visualized. No right renal calculus or hydronephrosis. Bladder: Mild bladder wall thickening suggestive of cystitis. No bladder calculi identified. Reproductive Organs: Prior hysterectomy. Adnexal regions are unremarkable. Bowel: No bowel obstruction. Appendix: The appendix is not identified. There is no inflammatory process identified in the right lower quadrant to suggest appendicitis. Lymph nodes: Unremarkable. Vasculature: The abdominal aorta and IVC are normal. Peritoneum / Retroperitoneum: No free fluid or air. Bones: Degenerative changes of the spine. CT/Abdomen/Pelvis W IV Cont ONLY IMPRESSION: 1. Mild fullness of the left ureter with periureteral and perinephric fat stran ding may be related to recently passed stone, which is not visualized. 2. Mild bladder wall thickening may suggest superimposed cystitis. Reading Location[facility]
--- NOTE | 2025-04-29 15:40 | RAD_ITS ---
PROCEDURE: CHEST 1 VIEW (PORTABLE) 04/29/2025 REASON FOR EXAM: SOB TECHNIQUE: Frontal view of the chest. COMPARISON: 11/29/2024 FINDINGS: Stable asymmetric elevation of right hemidiaphragm. Borderline cardiomegaly. No consolidation in either lung. No pleural effusion or pneumothorax. The bony thorax is intact. RAD/Chest 1 View (Portable) IMPRESSION: Borderline cardiomegaly Reading Location: [id number]
--- NOTE | 2025-04-29 15:40 | RAD_ITS ---
PROCEDURE: CHEST 1 VIEW (PORTABLE) 04/29/2025 REASON FOR EXAM: SOB TECHNIQUE: Frontal view of the chest. COMPARISON: 11/29/2024 FINDINGS: Stable asymmetric elevation of right hemidiaphragm. Borderline cardiomegaly. No consolidation in either lung. No pleural effusion or pneumothorax. The bony thorax is intact. RAD/Chest 1 View (Portable) IMPRESSION: Borderline cardiomegaly Reading Location: [id number]
[2025-04-29] MEDS: 0.9% Normal Saline (1000mL) 1,000 ML 1000 ML IV ×2 (16:49→18:44)
[2025-04-29 17:36] LABS: Reflex Lactate? Y
--- NOTE | 2025-04-29 18:54 | PCM.HP.STD ---
HPI - General General Date of Admission: 04/29/25 Date of Service: 04/29/25 Chief Complaint: Nausea with vomiting and rigors HPI Narrative YUE IBRAHIM, is a 65 F who presented to [facility] ED on 04/29/2025 with nausea with vomiting and rigors. Medical history significant for CAD with stenting, chronic HFrEF with last EF 35 to 40% in 01/2024, type 2 diabetes mellitus, class III obesity, and hypothyroidism. Patient lives at home with her , has good functional status at baseline. On Thursday she began to have burning with urination concerning for UTI. Saw PCP and UA was consistent with UTI so she was started on Bactrim. She took her first dose of that this morning. About 2 hours later she developed shaking with mild shortness of breath and had an episode of nausea with vomiting. No history of sulfa allergy but she was concerned for possible allergic reaction so she came in to the ED for further evaluation. On arrival to the ED she was febrile to 103.3F, in sinus tachycardia to the 130s 140s and hypotensive to the 80s over 50s. Labs notable for WBC count 13.3, bicarb 17, glucose 274, lactic acid 6.3. UA showed 500 leukocyte esterase, negative nitrites, 2+ bacteria. CT abdomen pelvis showed mild bladder wall thickening, mild fullness of the left ureter with periureteral and perinephric fat stranding concerning for pyelonephritis. Given concern for urosepsis, she was given 30 cc/kg IV fluid bolus (approximately 3000 ml) over a few hours with improvement in blood pressure to the 110s to 120 systolic and improvement in lactic acid to 2.6. She remained stable on room air at rest and denied any shortness of breath. She was given a dose of IV ceftriaxone as well. Hospitalist was then contacted for admission. I saw the patient at bedside in the ED. Patient had been given a dose of Tylenol for fever and the fever had improved but she was shaking when I saw her suspected due to rigors. She was mildly fatigued appearing but otherwise sitting back in bed and answering questions appropriately. She denied any fevers currently. She reported mild left-sided flank pain but otherwise denied any chest pain or abdominal pain. States she has not had a UTI for several years. Has continuous glucose monitoring for diabetes and notes that her blood sugars have been fairly well-controlled recently. No other acute concerns currently. Will be benefit further management. [facility] Medical History Varicose vein of leg Screening for colorectal cancer Obesity Dyslipidemia History of PSVT (paroxysmal supraventricular tachycardia) Coronary artery disease Obesity, morbid, BMI 40.0-49.9 SALMERON (dyspnea on exertion) Varicose veins of right lower extremity Mixed hyperlipidemia Abnormal stress test Atherosclerotic heart disease of minto coronary artery without angina pectoris Diabetes mellitus Cardiomyopathy NSTEMI (non-ST elevated myocardial infarction) Chest pain, rule out acute myocardial infarction Obstructive sleep apnea Bronchitis Essential hypertension Chest pain Endometrial hyperplasia without atypia, simple Hypothyroidism HUSSEIN (obstructive sleep apnea) GERD (gastroesophageal reflux disease) HTN (hypertension) Supraventricular tachycardia Home Medications ?Medication ?Instructions ?Recorded ?Last Taken ?Type aspirin 81 mg chewable tablet 81 mg PO DAILY@0800 09/11/15 12/05/24 History coenzyme Q10 100 mg capsule 100 mg PO DAILY 08/02/18 10/14/18 08:00 History atorvastatin 40 mg tablet 40 mg PO QHS #90 tabs 11/02/19 Unknown Rx clopidogrel 75 mg tablet 75 mg PO DAILY #90 tabs 12/28/20 12/05/24 Rx levothyroxine 50 mcg tablet 50 mcg PO DAILY 10/21/21 12/05/24 History nitroglycerin 0.4 mg sublingual 0.4 mg sublingual Q5M PRN Chest 03/27/23 Unknown Rx tablet Pain #25 tabs omeprazole 20 mg capsule,delayed 20 mg PO DAILY 04/23/23 05/04/23 History release gabapentin 100 mg capsule 200 mg PO BID 01/04/24 12/05/24 History sacubitril 49 mg-valsartan 51 mg 1 tab PO BID #180 tabs 10/18/24 12/05/24 Rx tablet (Entresto) isosorbide mononitrate 30 mg 30 mg PO DAILY #30 tabs 12/05/24 Unknown Rx tablet,extended release 24 hr metoprolol succinate 200 mg 200 mg PO QDAY #90 tabs 12/21/24 Unknown Rx tablet,extended release 24 hr furosemide 40 mg tablet (Lasix) 40 mg PO DAILY PRN swelling #30 03/22/25 Unknown Rx tabs dulaglutide 4.5 mg/0.5 mL 4.5 mg subcut FR 03/25/25 Unknown History subcutaneous pen injector (Trulicity) metformin 500 mg tablet,extended 1,000 mg PO BID 03/25/25 Unknown History release 24 hr trazodone 100 mg tablet 100 mg PO QHS PRN PRN insomnia 03/25/25 Unknown History Allergy/AdvReac Type Severity Reaction Status Date / Time clindamycin Allergy Hives Verified 03/25/25 20:58 erythromycin base Allergy Hives Verified 03/25/25 20:58 nitrofurantoin Allergy Hives Verified 03/25/25 20:58 macrocrystalline (From Macrodantin) Sulfa (Sulfonamide Allergy Hives Verified 03/25/25 20:58 Antibiotics) sulfamethoxazole (From Allergy Hives Verified 03/25/25 20:58 Septra) trimethoprim (From Septra) Allergy Hives Verified 03/25/25 20:58 dapagliflozin (From Farxiga) AdvReac Intermediate Yeast Verified 03/25/25 20:58 Infection lisinopril AdvReac Intermediate Dry Verified 03/25/25 20:58 Hacking Cough Family History Grandmother CVA (cerebral vascular accident) Mother CAD (coronary artery disease) A-fib Heart disease Father Heart disease Hypertension Cancer Lung CA Sister Fibromyalgia Sister Myocardial infarction Diabetes CAD (coronary artery disease) Brother Myocardial infarction CAD (coronary artery disease) Diabetes Brother Cancer Asthma Aunt Colon cancer Uncle Colon cancer Diabetes Surgical History Stented coronary artery (12/05/24) History of left heart catheterization (05/04/23) History of hysterectomy History of cardiac radiofrequency ablation (~04/07/17) H/O prior ablation treatment (04/07/17) History of total right knee replacement (TKR) (~06/2014) History of Social History household members: spouse Smoking Status: Never smoker alcohol intake: never substance use type: does not use caffeine: Yes Type: carbonated beverages and coffee what type of physical activity do you participate in: none seatbelt use: always do you feel safe at home: Yes ROS Constitutional Constitutional: Reports chills, fatigue, fever(s) and malaise; Denies weakness Cardiovascular Cardiovascular: Denies chest pain, dyspnea on exertion, edema, lightheadedness or palpitations Respiratory/Chest Respiratory/Chest: Denies cough or shortness of breath at rest Gastrointestinal Gastrointestinal: Reports nausea; Denies abdominal pain, constipation, diarrhea or vomiting Genitourinary Genitourinary: Reports burning urination and dysuria Musculoskeletal Musculoskeletal: Denies arthralgias or myalgias Neurologic Neurologic: Denies dizziness, focal weakness, headache(s), numbness or tingling Vital Signs Vital Signs Vital Signs: 04/29/25 12:40 04/29/25 13:44 04/29/25 14:56 Temperature 103.3 F H 100.2 F H Temperature Source Oral Oral Pulse Rate 143 H 127 H 121 H Respiratory Rate 25 H 22 H 22 H Blood Pressure 135/75 H 89/56 L 106/78 Blood Pressure Mean 95 67 87 Pulse Ox 95 94 98 Oxygen Delivery Method Room Air Room Air Room Air 04/29/25 15:00 04/29/25 16:00 04/29/25 17:00 Temperature Temperature Source Pulse Rate 116 H 106 H 100 Respiratory Rate 18 19 H Blood Pressure 99/79 78/58 L 108/70 Blood Pressure Mean 85 64 82 Pulse Ox 95 94 97 Oxygen Delivery Method Room Air Room Air Room Air 04/29/25 18:00 Temperature Temperature Source Pulse Rate 96 Respiratory Rate 20 H Blood Pressure 108/74 Blood Pressure Mean 85 Pulse Ox 100 Oxygen Delivery Method Room Air Weight Weight: 109.406 kg Body Mass Index (BMI) 41.3 Physical Exam Const alert, oriented x3 and no apparent distress Constitutional Narrative: Upper middle-aged female, class III obesity, mildly fatigued appearing and mild shaking/rigors noted, otherwise sitting back in bed and answering questions appropriately. General Appearance: cooperative and comfortable HEENT normocephalic, head/scalp atraumatic, hearing grossly normal bilaterally, nasal mucous membranes and turbinates normal and moist oral mucous membranes Eyes PERRL, EOMs intact bilaterally and conjunctivae normal Neck full ROM Chest inspection of chest normal Resp normal respiratory effort, normal air movement, no use of accessory muscles and clear to auscultation bilaterally Cardio no murmurs and peripheral pulses 2+ throughout Cardio Narrative: Tachycardic, regular rhythm. GI normal to inspection, nondistended, normoactive bowel sounds, soft to palpation, non-tender and non-distended Narrative: Mild left-sided CVA tenderness noted. Bladder / Kidney Exam: bladder normal to palpation Back/Spine normal ROM Extremity normal to inspection, full ROM and no pedal edema Skin no rashes or lesions noted Psych mental status grossly normal Results Lab / Micro Data 04/29/25 13:38 04/29/25 13:38 Labs: Laboratory Results - last 24 hr 04/29/25 13:38: WBC 13.3 H, RBC 4.64, Hgb 12.5, Hct 39.5, MCV 85.1, MCH 26.9 L, MCHC 31.6 L, RDW Std Deviation 47.7 H, RDW Coeff of Jhonatan 15.4 H, Plt Count 267, MPV 9.7, Immature Gran % (Auto) 0.700, Neut % (Auto) 86.3 H, Lymph % (Auto) 10.4 L, Gates % (Auto) 2.1, Eos % (Auto) 0.1, Baso % (Auto) 0.4, Absolute Neuts (auto) 11.5 H, Absolute Lymphs (auto) 1.38, Nucleated RBC % 0, PT 15.6 H, INR 1.2, APTT 27.3, Sodium 138, Potassium 4.0, Chloride 103, Carbon Dioxide 17.3 L, Anion Gap 18 H, BUN 11, Creatinine 1.09, Estim Creat Clear Calc 62.21, Est GFR (MDRD) Non-Af 56 L, BUN/Creatinine Ratio 10.2, Glucose 274 H, Lactic Acid 6.3 H*, Calcium 8.8, Total Bilirubin 1.03, AST 31, ALT 13, Alkaline Phosphatase 102, Total Protein 6.6, Albumin 3.7, Globulin 2.9, Albumin/Globulin Ratio 1.2, b-Hydroxybutyric mmol/L 0.2, Urine Color Yellow, Urine Clarity Cloudy, Urine pH 6.0, Ur Specific [place] 1.020, Urine Protein 500 H, Urine Glucose (UA) 100 H, Urine Ketones Negative, Urine Occult Blood 250 H, Urine Nitrite Negative, Urine Bilirubin Negative, Urine Urobilinogen Normal, Ur Leukocyte Esterase 500 H, Urine RBC 25-50 SEEN, Urine WBC >100 SEEN, Ur Squamous Epith Cells 0-5 SEEN, Urine Bacteria 2+, Urine Mucus 0 SEEN 04/29/25 17:33: Lactic Acid 2.6 H* Micro: Microbiology 04/29/25 13:38 Mucosa - Nose SARS-CoV-2, Influenza & RSV (PCR) - Final ABG Data ABG results: ABG 04/29/25 14:43 Specimen Type ISMAEL Sample Site Not entered VBG pH 7.46 H VBG pO2 51 H VBG HCO3 23 VBG Total CO2 24 VBG O2 Sat (Calc) 88 H VBG Base Excess -1 POC Mix VBG pCO2 Pt Tmp 32.6 L O2 Delivery Device Not entered Imaging Radiology Impression Abdomen/Pelvis CT 04/29/25 15:25 IMPRESSION: 1. Mild fullness of the left ureter with periureteral and perinephric fat stranding may be related to recently passed stone, which is not visualized. 2. Mild bladder wall thickening may suggest superimposed cystitis. Reading [facility] Chest X-Ray 04/29/25 15:40 IMPRESSION: Borderline cardiomegaly Reading Location: [id number] Assessment & Plan Assessment/Plan (1) Acute pyelonephritis: (2) Sepsis: PLAN: Plan Patient is a 65-year-old female who presented [facility] ED on 04/29/2025 with nausea with vomiting and rigors. 1. Sepsis without shock secondary to acute pyelonephritis ? Admit under inpatient status to ICU. Met sepsis criteria on admit with elevated lactic acid and MAP less than 65 in setting of pyelonephritis. CT abdomen pelvis showed mild bladder wall thickening, mild fullness of the left ureter with periureteral and perinephric fat stranding concerning for pyelonephritis. Given 30 cc/kg of IV fluids in the ED with improvement in blood pressure to the 110s to 120s systolic. She did remain tachycardic to the 100s to 110s despite fluids. She was stable on room air at rest after IV fluids though notably has chronic HFrEF as below. If patient drops blood pressure, we will plan to initiate Levophed. Will treat with IV ceftriaxone. Urine culture and blood cultures pending. Monitor closely. 2. Chronic HFrEF, history of CAD with stenting, hypertension, hyperlipidemia ? Follows with cardiology, last office visit in December. Last echo in 01/2024 showed EF 35 to 40%, mildly dilated LV, moderate generalized hypokinesis, no significant valvular issues, no other concerning findings. Hypovolemic on admission due to sepsis as above. Given significant IV fluids as above. Will hold home Lasix, nitrate, Toprol and Entresto. Okay to continue home aspirin, Plavix and statin. 3. Type 2 diabetes mellitus with diabetic neuropathy ? Blood glucose 274 on admit. A1c 6.8%. Will treat with sliding scale insulin with meals for now, adjust as needed. Continue home gabapentin. Hold home metformin and Trulicity. 4. Class III obesity with HUSSEIN ? BMI 43 on admit. Complicates hospital course and care. Continue home PAP therapy at night. 5. Hypothyroidism ? Continue home Synthroid. DVT prophylaxis: Lovenox twice daily CODE STATUS: Full code, verified Expected disposition: Home, TBD Total clinical time spent by myself addressing the patient's medical issues, reviewing all the data, and collaborating with patient's care team: 81 minutes. Charges/Coding Visit Charges Inpatient E&M: 75472 Init Hosp L3
[2025-04-29] MEDS: 0.9% Saline Lock 10 ML Syringe IV (20:31)
[2025-04-30] VITALS (18 sets, daily range): BP systolic 89–125; BP diastolic 45–76; PULSE 56–107; RESP 13–24; TEMP 36.6–37.3; O2SAT 92–99; BMI 43.6
[2025-04-30] MEDS: 0.9% Saline Lock 10 ML Syringe IV (04:58)
[2025-04-30 05:06] LABS: Hematocrit 34.3 % (37-47); Hemoglobin 10.9 g/dL (12.0-15.0); Mean Corp Hgb Conc 31.8 g/dL (32-36); Mean Corpuscular Volume 86.0 fL (81-99); Mean Platelet Vol. 9.6 fl (6.2-12.0); Platelet Count 222 K/mm3 (150-450); RBC Distribution Width CV 15.5 % (11.6-14.6); RBC Distribution Width SD 48.7 fl (35.1-43.9); Red Blood Count 3.99 M/mm3 (4.2-5.4); White Blood Count 11.2 K/mm3 (4.4-11.0)
[2025-04-30 05:25] LABS: Anion Gap 11 (5-15); BUN 10 mg/dL (4-19); BUN/Creat Ratio 11.1 RATIO (10-20); Calcium,Total 8.2 mg/dL (7.6-11.0); Carbon Dioxide 21.2 mmol/L (21.0-32.0); Chloride 107 mmol/L (98-108); Estimated Creatinine Clearance 73.22 ml/min (50-250); Glucose 125 mg/dL (70-99); Potassium 4.3 mmol/L (3.3-5.1)
--- NOTE | 2025-04-30 06:55 | PN.HOSP_ITS ---
Reason for Visit Chief Complaint: Nausea with vomiting and rigors Subjective Subjective Patient reports she is feeling much better overall. Dysuria is improved. No significant pain at this time. Very talkative. Objective Data Objective Data Vital Signs: Vital Signs Temp Pulse Resp BP Pulse Ox O2 Del Method 97.9 F 88 20 H 92/57 L 97 Room Air 04/30/25 01:00 04/30/25 06:00 04/30/25 06:00 04/30/25 06:00 04/30/25 06:00 04/30/25 06:00 Oxygen Delivery Method Room Air Weight: 111.6 kg Body Mass Index (BMI) 43.6 Intake & Output: Intake and Output for Last 24 Hours 04/28/25 04/29/25 04/30/25 23:59 23:59 23:59 Intake Total 3290 / 3290 240 / 240 Output Total 400 / 400 750 / 750 Balance 2890 / 2890 -510 / -510 Lab / Micro Data 04/30/25 05:00 04/30/25 05:00 Labs: Laboratory Results - last 24 hr 04/29/25 13:38: WBC 13.3 H, RBC 4.64, Hgb 12.5, Hct 39.5, MCV 85.1, MCH 26.9 L, MCHC 31.6 L, RDW Std Deviation 47.7 H, RDW Coeff of Jhonatan 15.4 H, Plt Count 267, MPV 9.7, Immature Gran % (Auto) 0.700, Neut % (Auto) 86.3 H, Lymph % (Auto) 10.4 L, [place] % (Auto) 2.1, Eos % (Auto) 0.1, Baso % (Auto) 0.4, Absolute Neuts (auto) 11.5 H, Absolute Lymphs (auto) 1.38, Nucleated RBC % 0, PT 15.6 H, INR 1.2, APTT 27.3, Sodium 138, Potassium 4.0, Chloride 103, Carbon Dioxide 17.3 L, Anion Gap 18 H, BUN 11, Creatinine 1.09, Estim Creat Clear Calc 62.21, Est GFR (MDRD) Non- Af 56 L, BUN/Creatinine Ratio 10.2, Glucose 274 H, Hemoglobin A1c 6.8 H, Lactic Acid 6.3 H*, Calcium 8.8, Total Bilirubin 1.03, AST 31, ALT 13, Alkaline Phosphatase 102, Total Protein 6.6, Albumin 3.7, Globulin 2.9, Albumin/Globulin Ratio 1.2, b-Hydroxybutyric mmol/L 0.2, Urine Color Yellow, Urine Clarity Cloudy, Urine pH 6.0, Ur Specific [place] 1.020, Urine Protein 500 H, Urine Glucose (UA) 100 H, Urine Ketones Negative, Urine Occult Blood 250 H, Urine Nitrite Negative, Urine Bilirubin Negative, Urine Urobilinogen Normal, Ur Leukocyte Esterase 500 H, Urine RBC 25-50 SEEN, Urine WBC >100 SEEN, Ur Squamous Epith Cells 0-5 SEEN, Urine Bacteria 2+, Urine Mucus 0 SEEN 04/29/25 17:33: Lactic Acid 2.6 H* 04/29/25 21:44: POC Glucose 135 H 04/30/25 05:00: WBC 11.2 H, RBC 3.99 L, Hgb 10.9 L, Hct 34.3 L, MCV 86.0, MCH 27.3, MCHC 31.8 L, RDW Std Deviation 48.7 H, RDW Coeff of Jhonatan 15.5 H, Plt Count 222, MPV 9.6, Sodium 139, Potassium 4.3, Chloride 107, Carbon Dioxide 21.2, Anion Gap 11, BUN 10, Creatinine 0.92, Estim Creat Clear Calc 73.22, Est GFR (MDRD) Non-Af 70, BUN/Creatinine Ratio 11.1, Glucose 125 H, Calcium 8.2 Micro: Microbiology 04/29/25 13:38 Mucosa - Nose SARS-CoV-2, Influenza & RSV (PCR) - Final ABG Data ABG results: ABG 04/29/25 14:43 Specimen Type ISMAEL Sample Site Not entered VBG pH 7.46 H VBG pO2 51 H VBG HCO3 23 VBG Total CO2 24 VBG O2 Sat (Calc) 88 H VBG Base Excess -1 POC Mix VBG pCO2 Pt Tmp 32.6 L O2 Delivery Device Not entered Radiography Diagnostic Testing: Radiology Impression Abdomen/Pelvis CT 04/29/25 15:25 IMPRESSION: 1. Mild fullness of the left ureter with periureteral and perinephric fat stranding may be related to recently passed stone, which is not visualized. 2. Mild bladder wall thickening may suggest superimposed cystitis. Reading Location: [facility] Chest X-Ray 04/29/25 15:40 IMPRESSION: Borderline cardiomegaly Reading Location: [id number] Physical Exam Const Constitutional Narrative: Upper middle-aged, white female, morbidly obese, sitting in a chair at the bedside, appears comfortable, nontoxic HEENT head/scalp atraumatic and moist oral mucous membranes HEENT Narrative: Mallampati 3, no thrush Head and Scalp: normocephalic Neck supple Neck Narrative: Neck is short and thick and trachea is midline Resp normal respiratory effort, no retractions, no use of accessory muscles and clear to auscultation bilaterally Auscultation: Negative for crackles, rhonchi or wheezes Cardio regular rate, regular rhythm, S1 normal heart sound, S2 normal heart sound, no murmurs, no rub, no gallops and no clicks Cardio Narrative: Distant heart tones due to body habitus GI normal to inspection, nondistended, normoactive bowel sounds, soft to palpation and non-tender GI Narrative: Protuberant abdomen, no flank pain with palpation Extremity no clubbing, cyanosis or edema Extremity Narrative: 2+ pedal and radial pulses Neuro oriented x3, moves all extremities and no focal motor deficits Speech: speech normal Psych affect normal Psych Narrative: Eye contact is good, patient is very talkative Assessment & Plan Assessment/Plan (1) Sepsis: (2) UTI (urinary tract infection): PLAN: Plan Sepsis secondary to acute urinary tract infection - CT does suggest she possibly had a stone that was passed--> no current stones or obstruction however - Lactic acid was 6.5 at the time of presentation - Blood pressure responded to volume resuscitation - Continue ceftriaxone - Current urine culture shows presumptive E. coli and another GNR LF - Blood pressures have appeared to stabilize - Will transfer to [facility] 3 Leukocytosis - Trending down - Continue antibiotics as ordered - Repeat lab in a.m. Lactic acidosis - Secondary to the above - Resolved Acute anemia - Suspect related to dilution - Will repeat in a.m. - No evidence of bleeding Chronic HFrEF/CAD/essential hypertension/hyperlipidemia - Will continue to hold Lasix, nitrates, beta-yeyo, and Entresto for now -Can probably look at reinitiating some medications tomorrow once blood pressure is more robust - continue aspirin, Plavix, and statin - Last echocardiogram from 02/09/2025 showed EF of 35 to 40% with mild aortic sclerosis and no stenosis and a mildly dilated aortic root with +1 MR - Cardiac catheterization done on 12/05/2024 at which time she had JULIA to proximal and mid RPL B x 2, 30% proximal RCA stenosis and patent stent to mid left circumflex DM-2 - Most recent A1c not long ago was 6.8 - Blood sugars are elevated on presentation due to acute infection - Hold home agents - SSI ordered - Will hold off on basal insulin for now as I do suspect her blood sugar should improve once her infection is under better control Diabetic neuropathy - Continue home gabapentin Hypothyroidism - Continue home Synthroid GERD -continue PPI Insomnia - Continue home as needed trazodone Morbid obesity - BMI 43.6 - Recommend weight loss - Complicates treatment, prognosis, outcomes DVT prophylaxis -Continue subcu enoxaparin 40 mg twice daily CODE STATUS - Full code Charges/Coding Visit Charges Inpatient E&M: 13738 Subs Hosp L2
[2025-04-30] MEDS: Ceftriaxone 2 GM in 0.9% Normal Saline (50mL MB+) 50 ML IV (11:00)
[2025-05-01] VITALS (7 sets, daily range): BP systolic 112–133; BP diastolic 73–84; PULSE 100–109; RESP 16–18; TEMP 36.6–37; O2SAT 94–99; BMI 43.5
[2025-05-01] MEDS: 0.9% Saline Lock 10 ML Syringe IV ×3 (06:27→11:01)
[2025-05-01 07:11] LABS: Hematocrit 31.3 % (37-47); Hemoglobin 10.0 g/dL (12.0-15.0); Immature Granulocytes Count 0.020 X10^3/uL (0.0-0.0); Mean Corp Hgb Conc 31.9 g/dL (32-36); Mean Corpuscular Volume 85.3 fL (81-99); Mean Platelet Vol. 9.7 fl (6.2-12.0); NRBC Flagged by Analyzer 0 % (0-5); Platelet Count 204 K/mm3 (150-450); RBC Distribution Width CV 15.3 % (11.6-14.6); RBC Distribution Width SD 47.9 fl (35.1-43.9); Red Blood Count 3.67 M/mm3 (4.2-5.4); White Blood Count 6.8 K/mm3 (4.4-11.0)
[2025-05-01 07:45] LABS: Anion Gap 10 (5-15); BUN 10 mg/dL (4-19); BUN/Creat Ratio 10.5 RATIO (10-20); Calcium,Total 8.5 mg/dL (7.6-11.0); Carbon Dioxide 23.8 mmol/L (21.0-32.0); Chloride 105 mmol/L (98-108); Estimated Creatinine Clearance 74.02 ml/min (50-250); Glucose 167 mg/dL (70-99); Magnesium 1.7 mg/dL (1.5-2.2); Potassium 4.1 mmol/L (3.3-5.1)
[2025-05-01] MEDS: Ceftriaxone 2 GM in 0.9% Normal Saline (50mL MB+) 50 ML IV (09:44)
[2025-05-01] MEDS: FLU VACCINE HIGH DOSE 25-26(65YR UP) 180 MCG/0.5 ML SYRINGE IM (09:52)
--- NOTE | 2025-05-01 11:34 | CASEMGMT ---
FIONA DESHPANDE Assessment: Face to Face with pt for initial transition planning/care coordination assessment. FIONA DESHPANDE introduced self and role at [facility], pt voices understanding and consents to assessment. Pt is A&O x4 and answers all questions appropriately at this time. Pt sitting up in bed in no distress. Care providers, pharmacy, and demographics verified/updated. Strata: 2 Admitting Dx: Urosepsis PCP: Lg Specialists: MELISSA Preferred Pharmacy: [facility] Insurance: Juan PIERRE Prescription Benefit: yes LNOK: , Mukul; Daughter, Tamela Living Arrangements: Pt lives with in a 1 level home with 1 step to enter. ADLs: Pt states I with ADLs and IADLs. Transportation: Pt drives self and denies concerns with transportation. DME: Walker, cane, has DM supplies, CPAP for HS. HHC/SNF: Denies Hx of. Pt states no concerns with going home at time of dc. Pt states no further concerns/needs. FIONA DESHPANDE gave report to CM on floor. CM to follow. Advised pt to ask CM if any further question/concerns/needs arise, voices understanding. Pt Goal: Home Plan: Home with family support. Follow for safe DC plan. Brii JAIMES CM
--- NOTE | 2025-05-01 12:35 | CHAPLAIN ---
Type of Pastoral Visit _x__ Initial Visit ___ Follow-up Visit ___ On-call Visit ___ General Patient Visit ___ Spiritual Assessment ___ Family Conference ___ Bereavement ___ Rapid Response ___ Code Blue ___ Other (describe below) Pastoral Care Referral From _x__ Patient ___ Family ___ Nurse ___ Physician ___ Investment Counselor ___ Winch Driver ___ Other (describe below) Sacrament/Intervention _x__ Active listening ___ Anointing ___ Bahai ___ Bereavement ___ Communion _x__ Susi exploration ___ _x__ Life review _x_ Prayer ___ Reconciliation ___ Sacrament of Sick ___ Supportive presence ___ Wedding ___ Other (describe below) Pastoral Comments patient describes her health condition that grew over the weeks; pt speaks of a youth teacher that plans to visit her; pt leads into discussion about sikh participation and that she is wanting to start going to sikh regularly again; pt has high praise for sikh and youth teacher in her community that has reached out to her family; pt mentions the limitations of her ; pt welcomes presence, time to talk about life, and prayer
--- NOTE | 2025-05-01 12:35 | CHAPLAIN ---
Type of Pastoral Visit _x__ Initial Visit ___ Follow-up Visit ___ On-call Visit ___ General Patient Visit ___ Spiritual Assessment ___ Family Conference ___ Bereavement ___ Rapid Response ___ Code Blue ___ Other (describe below) Pastoral Care Referral From _x__ Patient ___ Family ___ Nurse ___ Physician ___ Glycerine Plant Operator ___ Turkey Egg Gatherer ___ Other (describe below) Sacrament/Intervention _x__ Active listening ___ Anointing ___ Temple ___ Bereavement ___ Communion _x__ Susi exploration ___ _x__ Life review _x_ Prayer ___ Reconciliation ___ Sacrament of Sick ___ Supportive presence ___ Wedding ___ Other (describe below) Pastoral Comments patient describes her health condition that grew over the weeks; pt speaks of a photoengraving sketch maker that plans to visit her; pt leads into discussion about confucianist participation and that she is wanting to start going to confucianist regularly again; pt has high praise for confucianist and photoengraving sketch maker in her community that has reached out to her family; pt mentions the limitations of her ; pt welcomes presence, time to talk about life, and prayer
--- NOTE | 2025-05-01 18:07 | PCM.DC ---
Discharge Instructions DC O2, CPAP, BIPAP needs Home O2 Discharge instructions: No Follow Up Care Test Results: Test results from this visit will be discussed in further detail at your follow-up appointment, if applicable. Discharge Plan Admission Admit Date/Time: 04/29/25 18:54 Primary Reason for Your Visit: pyelonephritis Attending Provider: Braulio Khanna Primary Care Provider: Liana Castanon [employer] [place] Consulting Providers: Alban Barber; Apoorva Landa Discharge Orders/Prescriptions Prescriptions: New ciprofloxacin HCl 500 mg tablet 500 mg PO BID Qty: 10 0RF Rx Instructions: start on 05/02/25 Continued coenzyme Q10 100 mg capsule 100 mg PO DAILY atorvastatin 40 mg tablet 40 mg PO QHS Qty: 90 3RF clopidogrel 75 mg tablet 75 mg PO DAILY Qty: 90 3RF levothyroxine 50 mcg tablet 50 mcg PO DAILY nitroglycerin 0.4 mg tablet, sublingual 0.4 mg SUBLINGUAL Q5M PRN (Reason: Chest Pain) Qty: 25 0RF omeprazole 20 mg capsule,delayed release(DR/EC) 20 mg PO DAILY gabapentin 100 mg capsule 200 mg PO BID metoprolol succinate 200 mg tablet extended release 24 hr 200 mg PO QDAY Qty: 90 3RF aspirin 81 MG tablet,chewable 81 mg PO DAILY@0800 isosorbide mononitrate 30 mg tablet extended release 24 hr 30 mg PO DAILY Qty: 30 6RF trazodone 100 mg tablet 100 mg PO QHS PRN PRN (Reason: insomnia) metformin 500 mg tablet extended release 24 hr 1,000 mg PO BID Trulicity 4.5 mg/0.5 mL pen injector 4.5 mg SUBCUT FR Patient Comments: [NO ORIGINAL SIG] sacubitril-valsartan [Entresto] 49-51 mg tablet 1 tab PO BID Qty: 180 3RF furosemide [Lasix] 40 mg tablet 40 mg PO DAILY PRN (Reason: swelling) Qty: 30 6RF Referrals / Follow Up: Liana Castanon NP, [employer] [place]-[facility] [Primary Care Provider, Medical] - See Referral Note Referral Note: in two weeks Disposition Disposition (needs filled in before D/C Order can be placed): Home, Self Care
--- NOTE | 2025-05-01 18:07 | PCM.DC ---
Discharge Instructions DC O2, CPAP, BIPAP needs Home O2 Discharge instructions: No Follow Up Care Test Results: Test results from this visit will be discussed in further detail at your follow-up appointment, if applicable. Discharge Plan Admission Admit Date/Time: 04/29/25 18:54 Primary Reason for Your Visit: pyelonephritis Attending Provider: Braulio Khanna Primary Care Provider: Liana Castanon PRODUCT DEVELOPMENT TECHNICIAN Consulting Providers: Alban Barber; Apoorva Landa Discharge Orders/Prescriptions Prescriptions: New ciprofloxacin HCl 500 mg tablet 500 mg PO BID Qty: 10 0RF Rx Instructions: start on 05/02/25 Continued coenzyme Q10 100 mg capsule 100 mg PO DAILY atorvastatin 40 mg tablet 40 mg PO QHS Qty: 90 3RF clopidogrel 75 mg tablet 75 mg PO DAILY Qty: 90 3RF levothyroxine 50 mcg tablet 50 mcg PO DAILY nitroglycerin 0.4 mg tablet, sublingual 0.4 mg SUBLINGUAL Q5M PRN (Reason: Chest Pain) Qty: 25 0RF omeprazole 20 mg capsule,delayed release(DR/EC) 20 mg PO DAILY gabapentin 100 mg capsule 200 mg PO BID metoprolol succinate 200 mg tablet extended release 24 hr 200 mg PO QDAY Qty: 90 3RF aspirin 81 MG tablet,chewable 81 mg PO DAILY@0800 isosorbide mononitrate 30 mg tablet extended release 24 hr 30 mg PO DAILY Qty: 30 6RF trazodone 100 mg tablet 100 mg PO QHS PRN PRN (Reason: insomnia) metformin 500 mg tablet extended release 24 hr 1,000 mg PO BID Trulicity 4.5 mg/0.5 mL pen injector 4.5 mg SUBCUT FR Patient Comments: [NO ORIGINAL SIG] sacubitril-valsartan [Entresto] 49-51 mg tablet 1 tab PO BID Qty: 180 3RF furosemide [Lasix] 40 mg tablet 40 mg PO DAILY PRN (Reason: swelling) Qty: 30 6RF Referrals / Follow Up: Liana Castanon NP, [employer] DEVELOP[employer] TECHNICIAN-C [Primary Care Provider, Medical] - See Referral Note Referral Note: in two weeks Disposition Disposition (needs filled in before D/C Order can be placed): Home, Self Care
--- NOTE | 2025-05-01 18:31 | DS.PCM_ITS ---
Providers Date of Admission: 04/29/25 Date of Discharge: 05/01/25 Primary Care Physician: ABDI Day Reason For Visit: UROSEPSIS Diagnosis Discharge Diagnosis (1) Sepsis: Status: Acute Code(s): A41.9 - Sepsis, unspecified organism (2) UTI (urinary tract infection): Status: Acute Code(s): N39.0 - Urinary tract infection, site not specified Plan 1. Pyelonephritis secondary to E. coli and Klebsiella pneumoniae #2 type 2 diabetes #3 hypothyroidism #4 essential hypertension #5 lactic acidosis-etiology unclear #6 coronary artery disease #7 class III obesity Sepsis was ruled out Medications at Discharge Home Medications aspirin 81 mg chewable tablet 81 mg PO DAILY@0800 09/11/15 coenzyme Q10 100 mg capsule 100 mg PO DAILY 08/02/18 atorvastatin 40 mg tablet 40 mg PO QHS #90 tabs 11/02/19 clopidogrel 75 mg tablet 75 mg PO DAILY #90 tabs 12/28/20 levothyroxine 50 mcg tablet 50 mcg PO DAILY 10/21/21 nitroglycerin 0.4 mg sublingual tablet 0.4 mg sublingual Q5M PRN Chest Pain #25 tabs 03/27/23 omeprazole 20 mg capsule,delayed release 20 mg PO DAILY 04/23/23 gabapentin 100 mg capsule 200 mg PO BID 01/04/24 sacubitril 49 mg-valsartan 51 mg tablet (Entresto) 1 tab PO BID #180 tabs 10/18/24 isosorbide mononitrate 30 mg tablet,extended release 24 hr 30 mg PO DAILY #30 tabs 12/05/24 metoprolol succinate 200 mg tablet,extended release 24 hr 200 mg PO QDAY #90 tabs 12/21/24 furosemide 40 mg tablet (Lasix) 40 mg PO DAILY PRN swelling #30 tabs 03/22/25 dulaglutide 4.5 mg/0.5 mL subcutaneous pen injector (Trulicity) 4.5 mg subcut FR 03/25/25 metformin 500 mg tablet,extended release 24 hr 1,000 mg PO BID 03/25/25 trazodone 100 mg tablet 100 mg PO QHS PRN PRN insomnia 03/25/25 ciprofloxacin HCl 500 mg tablet 500 mg PO BID #10 tabs 05/01/25 Hospital Course Operations None Procedures None Summary of Care Provided Minutes Spent on Discharge: 31 Hospital Course: This 65-year-old white female was seen in the emergency room [facility] with complaints of nausea vomiting and chills. Recently she began to have dysuria and saw her PCP, UA was consistent with UTI so she was started on Bactrim, she only took 1 dose and shortly after that developed shaking and mild shortness of breath and had an episode of nausea and vomiting. Patient was noted to be febrile in the emergency room with a temp of 103.3, she was tachycardic and white blood cell count was 13.3. Lactic acid is 6.3, UA showed 500 leukocyte esterase, negative nitrites and +2 bacteria. Patient was admitted to ICU for sepsis and UTI, this examiner however did not feel she met criteria for for sepsis although she did have a UTI. Cystoscopy was patient was ultimately transferred to [place] [id number] for further care and remained on IV antibiotics. Urine culture grew out E. coli and Klebsiella pneumoniae. On 05/01/2025, patient was seen and examined: On examination she appeared in good health and spirits, she does not appear to be in any distress. Vital signs as documented. Skin warm and dry and without overt rashes. Neck without JVD, thyroid appears normal, trachea is midline, neck is supple. Lungs clear, normal air movement was noted. Heart exam notable for regular rhythm, normal sounds and absence of murmurs, rubs or gallops. Abdomen unremarkable and without evidence of organomegaly, masses, or abdominal aortic enlargement, bowel sounds are present in all 4 quadrants, no abdominal tenderness was noted. Extremities nonedematous, no cyanosis was noted, no clubbing was noted. Neuro: Cranial nerves II through XII are grossly intact, no focal motor deficits were noted, sensation to light touch and pinprick is intact, motor exam 5/5 throughout. Psych: Patient is alert and oriented x3, she does not appear anxious or depressed, she does not appear agitated. Patient was discharged in stable condition to home on 05/01/2025. Weight / BMI Weight Weight: 111.6 kg Body Mass Index (BMI) 43.5 ABG / Lab / Microbiology Data 05/01/25 06:54 05/01/25 06:54 Laboratory: Laboratory Results - last 24 hr 04/30/25 22:05: POC Glucose 164 H 05/01/25 06:21: POC Glucose 150 H 05/01/25 06:54: WBC 6.8, RBC 3.67 L, Hgb 10.0 L, Hct 31.3 L, MCV 85.3, MCH 27.2, MCHC 31.9 L, RDW Std Deviation 47.9 H, RDW Coeff of Jhonatan 15.3 H, Plt Count 204, MPV 9.7, Immature Gran % (Auto) 0.300, Neut % (Auto) 65.0, Lymph % (Auto) 24.1, [place] % (Auto) 9.3, Eos % (Auto) 0.9, Baso % (Auto) 0.4, Absolute Neuts (auto) 4.4, Absolute Lymphs (auto) 1.63, Nucleated RBC % 0, Sodium 139, Potassium 4.1, Chloride 105, Carbon Dioxide 23.8, Anion Gap 10, BUN 10, Creatinine 0.91, Estim Creat Clear Calc 74.02, Est GFR (MDRD) Non-Af 70, BUN/Creatinine Ratio 10.5, G lucose 167 H, Calcium 8.5, Phosphorus 3.4, Magnesium 1.7 05/01/25 10:58: POC Glucose 187 H 05/01/25 16:03: POC Glucose 170 H Microbiology: Microbiology 04/29/25 13:38 Blood Culture (Wb) - Left Hand Blood Culture - Final No growth in 5 days. 04/29/25 13:38 Blood Culture (Wb) - Left Hand Blood Culture - Final No growth in 5 days. 04/29/25 13:38 Urine, Clean Catch Urine Culture - Final Presumptive E. coli Klebsiella pneumoniae sp pneum 04/29/25 13:38 Mucosa - Nose SARS-CoV-2, Influenza & RSV (PCR) - Final D/C Instructions DC O2, CPAP, BIPAP Needs Home O2 Discharge instructions: No Meaningful Use Info Meaningful Use Meaningful Use Diagnoses (Choose all that apply): None applicable Discharge Plan Admission Admit Date/Time: 04/29/25 18:54 Primary Reason for Your Visit: pyelonephritis Attending Provider: Braulio Khanna Primary Care Provider: Liana Castanon NP Consulting Providers: Alban Barber; Apoorva Landa Discharge Orders/Prescriptions Prescriptions: New ciprofloxacin HCl 500 mg tablet 500 mg PO BID Qty: 10 0RF Rx Instructions: start on 10/14/25 Continued coenzyme Q10 100 mg capsule 100 mg PO DAILY atorvastatin 40 mg tablet 40 mg PO QHS Qty: 90 3RF clopidogrel 75 mg tablet 75 mg PO DAILY Qty: 90 3RF levothyroxine 50 mcg tablet 50 mcg PO DAILY nitroglycerin 0.4 mg tablet, sublingual 0.4 mg SUBLINGUAL Q5M PRN (Reason: Chest Pain) Qty: 25 0RF omeprazole 20 mg capsule,delayed release(DR/EC) 20 mg PO DAILY gabapentin 100 mg capsule 200 mg PO BID metoprolol succinate 200 mg tablet extended release 24 hr 200 mg PO QDAY Qty: 90 3RF aspirin 81 MG tablet,chewable 81 mg PO DAILY@0800 isosorbide mononitrate 30 mg tablet extended release 24 hr 30 mg PO DAILY Qty: 30 6RF trazodone 100 mg tablet 100 mg PO QHS PRN PRN (Reason: insomnia) metformin 500 mg tablet extended release 24 hr 1,000 mg PO BID Trulicity 4.5 mg/0.5 mL pen injector 4.5 mg SUBCUT FR Patient Comments: [NO ORIGINAL SIG] sacubitril-valsartan [Entresto] 49-51 mg tablet 1 tab PO BID Qty: 180 3RF furosemide [Lasix] 40 mg tablet 40 mg PO DAILY PRN (Reason: swelling) Qty: 30 6RF Referrals / Follow Up: Liana Castanon NP, [employer] [Primary Care Provider, Medical] - See Referral Note Referral Note: in two weeks Disposition Disposition (needs filled in before D/C Order can be placed): Home, Self Care Charges/Coding Visit Charges Inpatient E&M: 21112 Disch Hosp >30min
== END 2025-05-01 18:50 | disposition home or self-care (01) | DRG 690 ==
LOC: ED 13:16 → ICU 04-30 06:48 → MS3 04-30 17:36
PROVIDERS: Internal Medicine; Admitting Provider Hospitalist; Emergency Provider Student in an Organized Health Care Education/Training Program; PCP Registered Nurse; Visit Provider Internal Medicine
DX: N10 Acute pyelonephritis (principal); E87.20 Acidosis, unspecified; I50.22 Chronic systolic (congestive) heart failure; Z68.41 Body mass index [BMI] 40.0-44.9, adult; E11.40 Type 2 diabetes mellitus with diabetic neuropathy, unspecified; E03.9 Hypothyroidism, unspecified; B96.1 Klebsiella pneumoniae [K. pneumoniae] as the cause of diseases classified elsewhere; B96.20 Unspecified Escherichia coli [E. coli] as the cause of diseases classified elsewhere; I11.0 Hypertensive heart disease with heart failure; I77.819 Aortic ectasia, unspecified site; E11.65 Type 2 diabetes mellitus with hyperglycemia; E66.01 Morbid (severe) obesity due to excess calories; I25.10 Atherosclerotic heart disease of native coronary artery without angina pectoris; I70.0 Atherosclerosis of aorta; K21.9 Gastro-esophageal reflux disease without esophagitis; G47.33 Obstructive sleep apnea (adult) (pediatric); E78.2 Mixed hyperlipidemia; I25.2 Old myocardial infarction; Z95.5 Presence of coronary angioplasty implant and graft; Z79.01 Long term (current) use of anticoagulants; Z79.82 Long term (current) use of aspirin; E66.813 Obesity, class 3; Z79.02 Long term (current) use of antithrombotics/antiplatelets; Z82.49 Family history of ischemic heart disease and other diseases of the circulatory system; Z83.3 Family history of diabetes mellitus; Z90.710 Acquired absence of both cervix and uterus; G47.00 Insomnia, unspecified
CPT/HCPCS: 36415; 71045; 74177; 80048; 80053; 81001; 82010; 82803; 82962; 83036; 83605; 83735; 84100; 85025; 85027; 85610; 85730; 87040; 87077; 87086; 87088; 87186; 87631; 93005; 97802; 99285; Q9967; A4216; J0696

== ENCOUNTER → 2025-07-04 | Outpatient (CLI) | payer MEDICARE, SELFPAY ==
[2018-10-15 15:37] VITALS: BMI 43.4
[2025-07-04 11:41] LABS: Hematocrit 41.0 % (37-47); Hemoglobin 13.1 g/dL (12.0-15.0); Immature Granulocytes Count 0.050 X10^3/uL (0.0-0.0); Mean Corp Hgb Conc 32.0 g/dL (32-36); Mean Corpuscular Volume 83.3 fL (81-99); Mean Platelet Vol. 9.5 fl (6.2-12.0); NRBC Flagged by Analyzer 0 % (0-5); Platelet Count 285 K/mm3 (150-450); RBC Distribution Width CV 17.0 % (11.6-14.6); RBC Distribution Width SD 51.7 fl (35.1-43.9); Red Blood Count 4.92 M/mm3 (4.2-5.4); White Blood Count 9.6 K/mm3 (4.4-11.0)
[2025-07-04 12:08] LABS: Pro- Brain NATRIURETIC PEPTIDE 472 pg/mL (<=900)
[2025-07-04 12:09] LABS: Anion Gap 14 (5-15); BUN 13 mg/dL (4-19); BUN/Creat Ratio 12.9 RATIO (10-20); Calcium,Total 9.6 mg/dL (7.6-11.0); Carbon Dioxide 23.6 mmol/L (21.0-32.0); Chloride 103 mmol/L (98-108); Glucose 141 mg/dL (70-99); Potassium 4.7 mmol/L (3.3-5.1)
== END | disposition home or self-care (01) ==
LOC: LAB 10:59
PROVIDERS: PCP Registered Nurse; Referring Provider Nurse Practitioner Family; Visit Provider Nurse Practitioner Family
DX: I42.9 Cardiomyopathy, unspecified (principal); E11.9 Type 2 diabetes mellitus without complications; I25.10 Atherosclerotic heart disease of native coronary artery without angina pectoris; Z95.5 Presence of coronary angioplasty implant and graft; I10 Essential (primary) hypertension; E78.5 Hyperlipidemia, unspecified; G47.33 Obstructive sleep apnea (adult) (pediatric); Z86.79 Personal history of other diseases of the circulatory system; E66.9 Obesity, unspecified
CPT/HCPCS: 36415; 80048; 83880; 85025